=== PATIENT | female | born 1945 | race Caucasian/White ===

== ENCOUNTER 2016-10-21 15:39 | Inpatient (IN) | payer MEDICARE, BC ==
[2016-10-21 16:30] LABS: Glucose,Whole Blood 252 mg/dL (75-99)
[2016-10-21] MEDS ORDERED: SODIUM CHLORIDE 0.9% 1,000 ML IV STA (16:34)
--- NOTE | 2016-10-21 16:39 | ED ---
General Adult HPI - General Chief complaint: Altered Mental Status Stated complaint: head injury Time Seen by Provider: 10/21/16 16:26 Source: patient, family, RN notes reviewed, old records reviewed Mode of arrival: ambulatory Limitations: no limitations - History of Present Illness Initial comments: This is a 71-year-old female here for evaluation. This patient presents for evaluation of altered mental status. Patient's not able to give appropriate timelines of events, family states patient is usually sharp and nose are events and nose was going on. Vision any difficulty answering simple questions. Patient also did pass out today and became unresponsive during day care and that hit her head on the table. No other complaints. Patient is been out of psychiatric facilities for the last few weeks and with today to have outpatient psychiatric treatment - Related Data Home Medications Medication Instructions Recorded Confirmed Atorvastatin Calcium [Lipitor] 10 mg PO HS 10/21/16 10/21/16 Benzonatate [Tessalon Perles] 100 mg PO Q8H PRN 10/21/16 10/21/16 Budesonide [Pulmicort] 0.5 mg INHALATION RT-Q12H 10/21/16 10/21/16 Divalproex Sodium [Depakote] 1,500 mg PO Q12H 10/21/16 10/21/16 Ferrous Sulfate [Feosol] 325 mg PO TID 10/21/16 10/21/16 Haloperidol [Haldol] 2 mg PO Q4H PRN 10/21/16 10/21/16 LORazepam [Ativan] 2 mg PO TID PRN 10/21/16 10/21/16 Melatonin 3 mg PO HS 10/21/16 10/21/16 Pantoprazole [Protonix] 40 mg PO QAM 10/21/16 10/21/16 Phenytoin Oral Susp [Dilantin Oral 300 mg PO HS 10/21/16 10/21/16 Susp] Tolterodine [Detrol] 2 mg PO DAILY 10/21/16 10/21/16 amLODIPine [Norvasc] 5 mg PO DAILY 10/21/16 10/21/16 guaiFENesin SYRUP 100MG/5ML 100 mg PO Q6H PRN 10/21/16 10/21/16 [Robitussin] predniSONE 5 mg PO BID 10/21/16 10/21/16 risperiDONE [RisperDAL] 0.5 mg PO TID 10/21/16 10/21/16 Previous Rx's Medication Instructions Recorded Carvedilol [Coreg] 12.5 mg PO BID 30 Days 04/19/16 Allergies Allergy/AdvReac Type Severity Reaction Status Date / Time Sulfa (Sulfonamide Allergy Unknown Unknown Verified 10/21/16 16:49 Antibiotics) egg AdvReac Diarrhea Verified 10/21/16 16:49 Review of Systems ROS Statement: Those systems with pertinent positive or pertinent negative responses have been documented in the HPI. ROS Other: All systems not noted in ROS Statement are negative. Past Medical History Past Medical History: CVA/TIA, Diabetes Mellitus, GERD/Reflux, Hyperlipidemia, Hypertension, Seizure Disorder Additional Past Medical History / Comment(s): Intracranial bleed July 2015, overactive bladder History of Any Multi-Drug Resistant Organisms: None Reported Past Surgical History: Hysterectomy Additional Past Surgical History / Comment(s): Total hysterectomy, right hip arthroplasty, laser surgery of the right eye of her bleeding, bladder suspension , right elbow metal plate Past Anesthesia/Blood Transfusion Reactions: No Reported Reaction Past Psychological History: Anxiety, Bipolar, Depression Additional Psychological History / Comment(s): 03/19/2016-Just transferred from [facility] to mental health unit where patient is being treated for psychosis, bipolar depression, paranoid symptoms and hearing voices. Smoking Status: Former smoker Past Alcohol Use History: None Reported Additional Past Alcohol Use History / Comment(s): Patient was a smoker for a couple years and quit in 1981. She denies any medical marijuana, marijuana, street drug or alcohol use. She uses a cane for ambulation since the intracranial bleed in July 2015. Past Drug Use History: None Reported - Past Family History Father Family Medical History: No Reported History Additional Family Medical History / Comment(s): Father is alive in his 80s and is a smoker. Patient does not know his medical history. Mother Family Medical History: No Reported History Additional Family Medical History / Comment(s): Mother at age 79 from Alzheimer's dementia. Sister(s) Additional Family Medical History / Comment(s): She has one sister that is from heart failure. Patient does not have any brothers. Patient has 2 daughters that are 45 and 42 years of age with no major medical problems. General Exam - General Exam Comments Initial Comments: NIH of 2 Limitations: no limitations General appearance: alert, in no apparent distress Head exam: Present: atraumatic, normocephalic, normal inspection Eye exam: Present: normal appearance, PERRL, EOMI. Absent: scleral icterus, conjunctival injection, periorbital swelling ENT exam: Present: normal exam, mucous membranes moist Neck exam: Present: normal inspection. Absent: tenderness, meningismus, lymphadenopathy Respiratory exam: Present: normal lung sounds bilaterally. Absent: respiratory distress, wheezes, rales, rhonchi, stridor Cardiovascular Exam: Present: regular rate, normal rhythm, normal heart sounds. Absent: systolic murmur, diastolic murmur, rubs, gallop, clicks GI/Abdominal exam: Present: soft, normal bowel sounds. Absent: distended, tenderness, guarding, rebound, rigid Extremities exam: Present: normal inspection, full ROM, normal capillary refill. Absent: tenderness, pedal edema, joint swelling, calf tenderness Back exam: Present: normal inspection Neurological exam: Present: alert, oriented X3, CN II-XII intact Psychiatric exam: Present: normal affect, normal mood Skin exam: Present: warm, dry, intact, normal color. Absent: rash Course Vital Signs 10/21/16 10/21/16 10/21/16 15:44 18:01 18:17 Temperature 97.3 F L Pulse Rate 90 69 76 Respiratory 20 18 18 Rate Blood Pressure 122/73 118/61 122/60 O2 Sat by Pulse 99 99 98 Oximetry 10/21/16 10/21/16 18:29 19:05 Temperature Pulse Rate 73 75 Respiratory 15 14 Rate Blood Pressure 120/60 121/70 O2 Sat by Pulse 99 100 Oximetry - Reevaluation(s) Reevaluation #1: 10/21/16 19:16 Patient not at risk for acute stroke, no known onset of symptoms, symptoms episodic also going on for more than 24 hours Reevaluation #2: 10/21/16 19:16 Patient still remains a difficulty answering time my questions EKG Findings - EKG Comments: EKG Findings:: EKG shows normal sinus rhythm rate of 68, VT 160, QRS 74 , QTC 416 Medical Decision Making - Medical Decision Making 71 female here for evaluation of altered mental status, patient will be For neurological evaluation and treatment. - Lab Data Result diagrams: 10/21/16 17:55 10/21/16 17:55 Lab Results 10/21/16 10/21/16 10/21/16 Range/Units 16:30 17:55 17:55 WBC 5.5 (3.8-10.6) k/uL RBC 3.85 (3.80-5.40) m/uL Hgb 12.2 (11.4-16.0) gm/dL Hct 36.7 (34.0-46.0) % MCV 95.2 (80.0-100.0) fL MCH 31.8 (25.0-35.0) pg MCHC 33.4 (31.0-37.0) g/dL RDW 13.9 (11.5-15.5) % Plt Count 103 L (150-450) k/uL Neutrophils % 56 % Lymphocytes % 29 % Monocytes % 10 % Eosinophils % 2 % Basophils % 1 % Neutrophils # 3.1 (1.3-7.7) k/uL Lymphocytes # 1.6 (1.0-4.8) k/uL Monocytes # 0.6 (0-1.0) k/uL Eosinophils # 0.1 (0-0.7) k/uL Basophils # 0.0 (0-0.2) k/uL PT (9.0-12.0) sec INR (<1.1) APTT (22.0-30.0) sec Sodium (137-145) mmol/L Potassium (3.5-5.1) mmol/L Chloride (98-107) mmol/L Carbon Dioxide (22-30) mmol/L Anion Gap mmol/L BUN (7-17) mg/dL Creatinine (0.52-1.04) mg/dL Est GFR (MDRD) Af Amer (>60 ml/min/1.73 sqM) Est GFR (MDRD) Non-Af (>60 ml/min/1.73 sqM) Glucose (74-99) mg/dL POC Glucose (mg/dL) 252 H (75-99) mg/dL POC Glu Indigo V[employer] ID Dmitri, Rosina Calcium (8.4-10.2) mg/dL Phosphorus (2.5-4.5) mg/dL Magnesium (1.6-2.3) mg/dL Total Bilirubin (0.2-1.3) mg/dL AST (14-36) U/L ALT (9-52) U/L Alkaline Phosphatase (38-126) U/L Total Creatine Kinase 56 (30-135) U/L CK-MB (CK-2) 0.9 (0.0-2.4) ng/mL CK-MB (CK-2) Rel Index 1.6 Troponin I <0.012 (0.000-0.034) ng/mL Total Protein (6.3-8.2) g/dL Albumin (3.5-5.0) g/dL 10/21/16 10/21/16 Range/Units 17:55 17:55 WBC (3.8-10.6) k/uL RBC (3.80-5.40) m/uL Hgb (11.4-16.0) gm/dL Hct (34.0-46.0) % MCV (80.0-100.0) fL MCH (25.0-35.0) pg MCHC (31.0-37.0) g/dL RDW (11.5-15.5) % Plt Count (150-450) k/uL Neutrophils % % Lymphocytes % % Monocytes % % Eosinophils % % Basophils % % Neutrophils # (1.3-7.7) k/uL Lymphocytes # (1.0-4.8) k/uL Monocytes # (0-1.0) k/uL Eosinophils # (0-0.7) k/uL Basophils # (0-0.2) k/uL PT 11.2 (9.0-12.0) sec INR 1.1 (<1.1) APTT 21.8 L (22.0-30.0) sec Sodium 139 (137-145) mmol/L Potassium 3.7 (3.5-5.1) mmol/L Chloride 103 (98-107) mmol/L Carbon Dioxide 24 (22-30) mmol/L Anion Gap 12 mmol/L BUN 24 H (7-17) mg/dL Creatinine 0.51 L (0.52-1.04) mg/dL Est GFR (MDRD) Af Amer >60 (>60 ml/min/1.73 sqM) Est GFR (MDRD) Non-Af >60 (>60 ml/min/1.73 sqM) Glucose 211 H (74-99) mg/dL POC Glucose (mg/dL) (75-99) mg/dL POC Glu Indigo V[employer]ender [employer] ID Calcium 9.1 (8.4-10.2) mg/dL Phosphorus 3.0 (2.5-4.5) mg/dL Magnesium 1.7 (1.6-2.3) mg/dL Total Bilirubin 0.4 (0.2-1.3) mg/dL AST 24 (14-36) U/L ALT 28 (9-52) U/L Alkaline Phosphatase 190 H (38-126) U/L Total Creatine Kinase (30-135) U/L CK-MB (CK-2) (0.0-2.4) ng/mL CK-MB (CK-2) Rel Index Troponin I (0.000-0.034) ng/mL Total Protein 5.6 L (6.3-8.2) g/dL Albumin 3.0 L (3.5-5.0) g/dL - Radiology Data Radiology results: report reviewed (CT brain negative for acute disease), image reviewed Disposition Clinical Impression: Altered mental status, Confusion, Cerebrovascular accident Disposition: ADMITTED IP TO THIS [facility] Condition: Fair Instructions: Altered Mental Status (ED) Referrals: Mani Hunt DO [Primary Care Provider] - 1-2 days
[2016-10-21 18:22] LABS: Basophils % (A) 1 %; CH 32.6; CHCM 34.4; Eosinophils # (A) 0.1 k/uL (0-0.7); Eosinophils % (A) 2 %; HCT 36.7 % (34.0-46.0); HDW 2.57; HGB 12.2 gm/dL (11.4-16.0); Luc # (Auto) 0.11; Luc % (Auto) 2; Lymphocytes # (A) 1.6 k/uL (1.0-4.8); Lymphocytes % (A) 29 %; MCH 31.8 pg (25.0-35.0); MCHC 33.4 g/dL (31.0-37.0); MCV 95.2 fL (80.0-100.0); Mean Platelet Volume 7.6; Monocytes # (A) 0.6 k/uL (0-1.0); Monocytes % (A) 10 %; Neutrophils # (A) 3.1 k/uL (1.3-7.7); Neutrophils % (A) 56 %; RBC 3.85 m/uL (3.80-5.40); RDW 13.9 % (11.5-15.5); WBC 5.5 k/uL (3.8-10.6)
[2016-10-21 18:30] LABS: ALT 28 U/L (9-52); AST 24 U/L (14-36); Alkaline Phosphatase 190 U/L (38-126); Anion Gap 12 mmol/L; Blood Urea Nitrogen 24 mg/dL (7-17); Calcium 9.1 mg/dL (8.4-10.2); Carbon Dioxide 24 mmol/L (22-30); Chloride 103 mmol/L (98-107); Glucose 211 mg/dL (74-99); Magnesium 1.7 mg/dL (1.6-2.3); Non-African American GFR(MDRD) >60 (>60 ml/min/1.73 sqM); Potassium 3.7 mmol/L (3.5-5.1); Sodium 139 mmol/L (137-145); Total Bilirubin 0.4 mg/dL (0.2-1.3); Total Protein 5.6 g/dL (6.3-8.2)
[2016-10-21 18:34] LABS: Creatine Kinase 56 U/L (30-135)
[2016-10-21 18:46] LABS: Creatine Kinase MB 0.9 ng/mL (0.0-2.4); Troponin I <0.012 ng/mL (0.000-0.034)
[2016-10-21 18:55] LABS: INR 1.1 (<1.1); Prothrombin Time 11.2 sec (9.0-12.0)
[2016-10-21 19:06] LABS: Partial Thromboplastin Time 21.8 sec (22.0-30.0)
[2016-10-21] MEDS ORDERED: ASPIRIN 325 MG TAB PO STA (19:11)
--- NOTE | 2016-10-21 19:42 | CT ---
EXAMINATION TYPE: CT brain wo con DATE OF EXAM: 10/21/2016 7:26 PM COMPARISON: 07/03/2016 HISTORY: Weakness. CT DLP: 1171.00 mGycm Automated exposure control for dose reduction was used. FINDINGS: There is some cerebral cortical atrophy. There is no mass effect or midline shift.. There is a 1 cm a jacquelyn of high attenuation at the left parietal convexity involving left parietal cortex. There is sugge stion of some minimal surrounding hypodensity. There is no significant mass effect. The area of high attenuation and has density of 97 which could be blood or calcium. The lesion is also present on prev ious CT scans back to 07/26/2015. The calvarium is intact. Lesion appears slightly smaller than old e xams. There is hyperostosis frontalis. IMPRESSION: Small high density lesion in the left parietal lobe with minimal surrounding hypodensity and no signi ficant mass effect. This is consistent with an area of old hemorrhage and small infarct evident on pr evious CT scans. No acute intracranial abnormality seen.
[2016-10-21 21:03] LABS: Glucose,Whole Blood 183 mg/dL (75-99)
[2016-10-21] MEDS: SODIUM CHLORIDE 0.9% 1,000 ML IV SCH (22:27)
[2016-10-21] MEDS: FERROUS SULFATE 325 MG TAB PO SCH (22:55)
[2016-10-21] MEDS: CARVEDILOL 12.5 MG TAB PO SCH (22:55)
[2016-10-21] MEDS: ATORVASTATIN 10 MG TAB PO SCH (22:55)
[2016-10-21] MEDS: DIVALPROEX 500 MG TABLET.DR PO SCH (22:56)
[2016-10-21] MEDS: PHENYTOIN ORAL SUSP 100 MG/4 ML CUP PO SCH (22:57)
[2016-10-21] MEDS: INSULIN LISPRO (humaLOG) 300 UNIT/3 ML VIAL SQ SCH (23:00)
[2016-10-21 23:05] LABS: Hemoglobin A1C 5.6 % (4.2-6.1)
[2016-10-21 23:27] LABS: Appearance,Urine Cloudy (Clear); Bacteria,Urine Few /hpf; Bilirubin,Urine Negative (Negative); Glucose,Urine (UA) 2+ (Negative); Ketones,Urine Negative (Negative); Leukocyte Esterase,Urine Large (Negative); Mucus,Urine Rare /hpf; Nitrite,Urine Positive (Negative); PH, Urine 6.5 (5.0-8.0); Particle Count 21882; Protein,Urine Negative (Negative); Specific Gravity,Urine 1.007 (1.001-1.035); Squamous Epithelial Cell,Urine 3 /hpf (0-4); UA Billing (MACRO vs. MICRO) MICRO; Urobilinogen,Urine <2.0 mg/dL (<2.0); WBC,Urine >182 /hpf (0-5)
[2016-10-22 00:03] VITALS: BMI 28.3
[2016-10-22] MEDS: SODIUM CHLORIDE 0.9% 1,000 ML IV SCH ×2 (05:47→16:00)
[2016-10-22 05:55] LABS: Glucose,Whole Blood 90 mg/dL (75-99)
[2016-10-22] MEDS: INSULIN LISPRO (humaLOG) 300 UNIT/3 ML VIAL SQ SCH ×4 (05:58→21:40)
[2016-10-22] MEDS: CARVEDILOL 12.5 MG TAB PO SCH ×2 (06:24→17:33)
[2016-10-22] MEDS: PANTOPRAZOLE 40 MG TABLET PO SCH (08:12)
[2016-10-22] MEDS: FERROUS SULFATE 325 MG TAB PO SCH ×3 (08:12→21:41)
[2016-10-22] MEDS: amLODIPine 5 MG TAB PO SCH (08:12)
[2016-10-22 08:41] LABS: Chloride 107 mmol/L (98-107); Glucose 96 mg/dL (74-99)
[2016-10-22 08:42] LABS: Anion Gap 11 mmol/L; Blood Urea Nitrogen 20 mg/dL (7-17); Calcium 8.9 mg/dL (8.4-10.2); Carbon Dioxide 23 mmol/L (22-30); Magnesium 1.6 mg/dL (1.6-2.3); Non-African American GFR(MDRD) >60 (>60 ml/min/1.73 sqM); Potassium 3.9 mmol/L (3.5-5.1); Sodium 141 mmol/L (137-145)
[2016-10-22] MEDS: BUDESONIDE 0.5 MG/2 ML NEBU INHALATION SCH ×2 (09:29→18:53)
[2016-10-22] MEDS: ASPIRIN 325 MG TAB PO SCH (10:23)
[2016-10-22] MEDS: DIVALPROEX 500 MG TABLET.DR PO SCH ×2 (10:23→21:41)
[2016-10-22 11:38] LABS: Glucose,Whole Blood 219 mg/dL (75-99)
[2016-10-22] MEDS ORDERED: HALOPERIDOL 2 MG TAB PO PRN (12:21)
[2016-10-22] MEDS ORDERED: LORazepam 1 MG TAB PO PRN (12:21)
[2016-10-22] MEDS ORDERED: guaiFENesin SYRUP 100MG/5ML 200 MG/10 ML CUP PO PRN (12:21)
[2016-10-22] MEDS ORDERED: BENZONATATE 100 MG CAP PO PRN (12:21)
[2016-10-22] MEDS ORDERED: risperiDONE 0.5 MG TAB PO SCH (12:30)
[2016-10-22] MEDS: risperiDONE 1 MG TAB PO SCH ×2 (14:16→21:41)
[2016-10-22] MEDS ORDERED: HALOPERIDOL LACTATE 5 MG/ML 1 ML VIAL IM PRN (15:18)
[2016-10-22 17:27] LABS: Glucose,Whole Blood 97 mg/dL (75-99)
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
--- NOTE | 2016-10-22 19:59 | P.CNNES ---
History of Present Illness Consult date: 10/22/16 Reason for Consult: Patient admitted with acute mental status changes and confusion. History of Present Illness: This patient is a 71-year-old right-handed white female who was recently discharged from [facility] and [place] for evaluation of acute stroke. Patient had an extensive stay in the hospital and apparently was transferred to an outpatient geriatric psych unit. She has a history of bipolar disorder for which she is undergoing treatment. Patient was recently seen in September of this year for similar episode of confusion. She has had multiple admissions to multiple hospitals for workup of acute stroke. She underwent a computed tomography scan of the brain today which revealed no significant acute intracranial abnormality. There was a high density lesion noted in the left parietal lobe consistent with an area of old hemorrhage which is been noted on previous CAT scans of the brain. Patient apparently became very agitated today. She is required a sitter at bedside. She has had some episodes of hallucinations. A psychiatry consultation has been ordered. Patient apparently has had episodes of delusions and has conversations with imaginary friends. Given this patient's history more likely she is experiencing acute psychosis. We'll await further evaluation from psychiatry. Patient does have history of underlying seizure disorder. We will check a serum Dilantin level for her. We'll await further recommendations from psychiatry. Overall gnosis at this time remains very guarded. Review of Systems Constitutional: Denies chills, Denies fever Eyes: denies blurred vision, denies pain Ears, nose, mouth and throat: Denies headache, Denies sore throat Cardiovascular: Denies chest pain, Denies shortness of breath Respiratory: Denies cough Gastrointestinal: Denies abdominal pain, Denies diarrhea, Denies nausea, Denies vomiting Genitourinary: Denies dysuria, Denies hematuria Musculoskeletal: Denies myalgias Integumentary: Denies pruritus, Denies rash Neurological: Denies numbness, Denies weakness Psychiatric: Denies anxiety, Denies depression Endocrine: Denies fatigue, Denies weight change Past Medical History Past Medical History: Cancer, CVA/TIA, Diabetes Mellitus, GERD/Reflux, Hyperlipidemia, Hypertension, Seizure Disorder Additional Past Medical History / Comment(s): Intracranial bleed July 2015, overactive bladder, UTI, Breast cancer, RT mastectomy/lumpectomy. History of Any Multi-Drug Resistant Organisms: None Reported Past Surgical History: Hysterectomy Additional Past Surgical History / Comment(s): Total hysterectomy, right hip arthroplasty, laser surgery of the right eye of her bleeding, bladder suspension , right elbow metal plate Past Anesthesia/Blood Transfusion Reactions: No Reported Reaction Past Psychological History: Anxiety, Bipolar, Depression Additional Psychological History / Comment(s): 03/19/2016-Just transferred from [facility] to mental health unit where patient is being treated for psychosis, bipolar depression, paranoid symptoms and hearing voices. Smoking Status: Former smoker Past Alcohol Use History: None Reported Additional Past Alcohol Use History / Comment(s): Patient was a smoker for a couple years and quit in 1979. She denies any medical marijuana, marijuana, street drug or alcohol use. She uses a cane for ambulation since the intracranial bleed in July 2015. Past Drug Use History: None Reported - Past Family History Father Family Medical History: No Reported History Additional Family Medical History / Comment(s): Father is alive in his 80s and is a smoker. Patient does not know his medical history. Mother Family Medical History: No Reported History Additional Family Medical History / Comment(s): Mother at age 79 from Alzheimer's dementia. Sister(s) Additional Family Medical History / Comment(s): She has one sister that is from heart failure. Patient does not have any brothers. Patient has 2 daughters that are 45 and 42 years of age with no major medical problems. Medications and Allergies Home Medications Medication Instructions Recorded Confirmed Type Atorvastatin Calcium [Lipitor] 10 mg PO HS 10/21/16 10/21/16 History Benzonatate [Tessalon Perles] 100 mg PO Q8H PRN 10/21/16 10/21/16 History Budesonide [Pulmicort] 0.5 mg INHALATION RT-Q12H 10/21/16 10/21/16 History Divalproex Sodium [Depakote] 1,500 mg PO Q12H 10/21/16 10/21/16 History Ferrous Sulfate [Feosol] 325 mg PO TID 10/21/16 10/21/16 History Haloperidol [Haldol] 2 mg PO Q4H PRN 10/21/16 10/21/16 History LORazepam [Ativan] 2 mg PO TID PRN 10/21/16 10/21/16 History Melatonin 3 mg PO HS 10/21/16 10/21/16 History Pantoprazole [Protonix] 40 mg PO QAM 10/21/16 10/21/16 History Phenytoin Oral Susp [Dilantin Oral 300 mg PO HS 10/21/16 10/21/16 History Susp] Tolterodine [Detrol] 2 mg PO DAILY 10/21/16 10/21/16 History amLODIPine [Norvasc] 5 mg PO DAILY 10/21/16 10/21/16 History guaiFENesin SYRUP 100MG/5ML 100 mg PO Q6H PRN 10/21/16 10/21/16 History [Robitussin] predniSONE 5 mg PO BID 10/21/16 10/21/16 History risperiDONE [RisperDAL] 0.5 mg PO TID 10/21/16 10/21/16 History Allergies Allergy/AdvReac Type Severity Reaction Status Date / Time Sulfa (Sulfonamide Allergy Unknown Unknown Verified 10/21/16 16:49 Antibiotics) egg AdvReac Diarrhea Verified 10/21/16 16:49 Physical Examination - Vital Signs Vital Signs: Vital Signs Temp Pulse Pulse Resp BP Pulse Ox 10/22/16 19:00 74 10/22/16 18:54 70 10/22/16 16:00 70 18 140/65 100 10/22/16 12:00 70 18 150/70 100 10/22/16 09:37 72 10/22/16 09:30 72 10/22/16 08:00 97 F L 70 18 123/59 98 10/22/16 06:22 71 149/72 10/22/16 03:22 97 F L 61 18 103/49 97 10/22/16 00:00 98.6 F 62 18 126/58 98 10/21/16 20:30 97.3 F L 71 18 117/65 96 Intake and Output 10/22/16 10/22/16 10/22/16 06:59 14:59 22:59 Intake Total 2200 910 360 Output Total 500 Balance 1700 910 360 Intake: Intake, IV Titration 2200 550 Amount Sodium Chloride 0.9% 1, 1200 500 000 ml @ 100 mls/hr IV . Q10H [facility] Rx#:[id number] Sodium Chloride 0.9% 1, 1000 000 ml @ 999 mls/hr IV . Q1H1M [facility] Rx#:[id number] cefTRIAXone 1,000 mg In 50 Sodium Chloride 0.9% 50 ml @ 100 mls/hr IVPB Q24HR [facility] Rx#:[id number] Oral 360 360 Output: Urine 500 Other: Voiding Method Toilet Toilet Toilet # Voids 1 3 Weight 65.4 kg - Constitutional General appearance: average body habitus, cooperative - EENT EENT: PERRL, mucous membranes moist - Respiratory Respiratory: lungs clear, normal breath sounds - Cardiovascular Cardiovascular: regular rate, normal S1, normal S2 Extremities: no peripheral edema bilaterally - Gastrointestinal Gastrointestinal: normoactive bowel sounds - Integumentary Integumentary: normal - Neurologic Cranial nerve examination: PERRL, EOMI, VFF, V1/V2/V3 grossly intact, face symmetric, tongue midline, intact gag reflex, intact corneal reflex, normal palatal elevation Speech examination: intact Sensorimotor examination: intact Detailed motor examination: grossly full strength in all extremities Detailed sensory examination: intact Reflex and gait examination: intact Reflexes: 1+: ankle, bicep, knee, tricep - Musculoskeletal Musculoskeletal: no pain - Psychiatric Psychiatric: mood/affect appropriate, cooperative Results - Laboratory Findings CBC and BMP: 10/21/16 17:55 10/22/16 07:46 Abnormal Lab Findings: Abnormal Labs 10/21/16 10/21/16 10/22/16 21:02 23:05 07:46 BUN 20 H Creatinine 0.44 L POC Glucose (mg/dL) 183 H Urine Appearance Cloudy H Urine Glucose (UA) 2+ H Urine Blood Trace H Urine Nitrate Positive H Ur Leukocyte Esterase Large H Urine WBC >182 H Urine WBC Clumps Few H Urine Bacteria Few H Urine Mucus Rare H 10/22/16 11:33 BUN Creatinine POC Glucose (mg/dL) 219 H Urine Appearance Urine Glucose (UA) Urine Blood Urine Nitrate Ur Leukocyte Esterase Urine WBC Urine WBC Clumps Urine Bacteria Urine Mucus Assessment and Plan (1) Acute encephalopathy Status: Acute Code(s): G93.40 - ENCEPHALOPATHY, UNSPECIFIED (2) Bipolar disorder Status: Acute Code(s): F31.9 - BIPOLAR DISORDER, UNSPECIFIED (3) Psychosis Status: Acute Code(s): F29 - UNSP PSYCHOSIS NOT DUE TO A SUBSTANCE OR KNOWN PHYSIOL COND (4) Acute hyponatremia Status: Acute Code(s): E87.1 - HYPO-OSMOLALITY AND HYPONATREMIA (5) History of intracranial hemorrhage Status: Chronic Code(s): Z86.79 - PERSONAL HISTORY OF OTHER DISEASES OF THE CIRCULATORY SYSTEM Plan: This patient is a 71-year-old female recently discharged from [facility] after being evaluated for acute stroke. She was sent to a geriatric psychiatric unit for further treatment recently. Apparently she was showing signs of increased confusion and was brought into the emergency room yesterday. She has subsequently been admitted to the hospital. She is resting comfortably but apparently earlier today has been having acute agitation and psychosis. Psychiatry has been consult. Computed tomography scan of the brain failed to reveal any evidence of acute stroke. Patient is being considered for inpatient psychiatric treatment. We will continue close monitoring of the patient. We'll obtain a serum Dilantin level. Overall prognosis for this patient remains very guarded. Time with Patient: Greater than 30
[2016-10-22 20:58] LABS: Glucose,Whole Blood 143 mg/dL (75-99)
[2016-10-22] MEDS: ATORVASTATIN 10 MG TAB PO SCH (21:39)
[2016-10-22] MEDS: PHENYTOIN ORAL SUSP 100 MG/4 ML CUP PO SCH (21:40)
[2016-10-22] MEDS: MELATONIN 3 MG TABLET PO SCH (21:40)
[2016-10-23] MEDS: INSULIN LISPRO (humaLOG) 300 UNIT/3 ML VIAL SQ SCH ×4 (06:24→21:26)
[2016-10-23] MEDS: CARVEDILOL 12.5 MG TAB PO SCH ×2 (06:36→19:14)
[2016-10-23 06:39] LABS: Glucose,Whole Blood 95 mg/dL (75-99)
[2016-10-23] MEDS: BUDESONIDE 0.5 MG/2 ML NEBU INHALATION SCH ×2 (08:00→20:42)
[2016-10-23] MEDS: PANTOPRAZOLE 40 MG TABLET PO SCH (08:42)
[2016-10-23] MEDS: DIVALPROEX 500 MG TABLET.DR PO SCH (08:42)
[2016-10-23] MEDS: ASPIRIN 325 MG TAB PO SCH (08:42)
[2016-10-23] MEDS: FERROUS SULFATE 325 MG TAB PO SCH ×3 (08:42→20:44)
[2016-10-23] MEDS: risperiDONE 1 MG TAB PO SCH (08:44)
[2016-10-23] MEDS: amLODIPine 5 MG TAB PO SCH (08:44)
[2016-10-23] MEDS ORDERED: OXYBUTYNIN XL 5 MG TAB.ER.24 PO SCH (09:00)
[2016-10-23] MEDS ORDERED: LORazepam 2 MG/ML SYRINGE IM PRN (10:28)
[2016-10-23 11:56] LABS: Glucose,Whole Blood 114 mg/dL (75-99)
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
[2016-10-23] MEDS ORDERED: HALOPERIDOL 0.5 MG TAB PO SCH (16:00)
[2016-10-23 17:02] LABS: Glucose,Whole Blood 116 mg/dL (75-99)
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
--- NOTE | 2016-10-23 18:10 | CONS ---
DATE OF CONSULTATION: ADDENDUM TO PSYCHIATRIC CONSULTATION Please refer to my initial dictation for consultation. This collateral information was gathered from the patient's , Matthias, as I met him in the hospital. Also I called the patient's daughter Shawna Hernadez, phone number , and she told me that she has a power of title attorney paper regarding any medical decision for the patient. According to the information, patient had confusion and "absent seizures just after Thanksgiving as he was having dinner with her in a restaurant, and he took her to [facility] to rule out stroke versus seizure." Patient was at [facility] for 2 weeks. Patient's apparently has memory problems and he could not tell me exactly the result of the stay; however, he stated that she did not have any seizure activity during her hospitalization at [place], but she was referred to inpatient psychiatric facility in [place] due to confusion, delusions and visual hallucinations. Patient was in inpatient psychiatric facility in [place] for 4 weeks. They did adjust her medication and she was released with the post-discharge plan to start [facility] day [facility] program. Patient was stable and she went for just half a day to the day program at [facility]. Her was called from [facility], as the patient was getting very confused and disoriented. He brought her to the hospital to rule out stroke or seizure activity. Her stated that the patient gets very delusional and more confused when she has urinary tract infection. He stated that patient has been having recurrent urinary tract infections every couple of weeks. Patient's daughter stated that her mother's baseline since July 2015 is "confused, not able to remember dates, but usually not combative." We called the pharmacy to know her medication from the psychiatric hospitalization in [place]. They are as follows: 1. Depakote extended-release 500 mg. She would take 3 tablets every 12 hours. 2. Risperdal 0.5 mg 3 times a day. 3. Dilantin liquid 125 every 12 hours. 4. Ferrous sulfate. 5. Coreg 12.5 twice a day. 6. Atorvastatin 10 mg at bedtime. 7. Amlodipine 5 mg daily. 8. Haloperidol 2 mg 1 tablet every 4 hours p.r.n. for agitation. 9. Breathing treatment. 10. Tolterodine extended-release 2 mg daily. I did ask her if he gave her any p.r.n. Haldol doses since she was discharged from the psych facility, and he replied saying, "I don't think so." MY RECOMMENDATIONS: 1. Avoid any p.r.n. Ativan or lorazepam; it will make her more confused and more disinhibited. 2. Treat the urinary tract infection. 3. Address the history of seizure disorder, as she is taking 2 anti-seizure medications and both are subtherapeutic or not in therapeutic range. 4. Discontinue Risperdal, as it does lower the seizure threshold, and continue the patient just on Haldol as a scheduled order. 5. I will continue to see the patient as long as she is on the medical floor; however, patient does not need inpatient psych hospitalization. Either we will refer her back to [facility] problem or to outpatient behavior medicine here at [facility], as she has been seen on a regular basis, and her last session was just before , as she was hospitalized all this period of time. Prognosis guarded.
[2016-10-23] MEDS: CEPHALEXIN 500 MG CAP PO SCH ×2 (19:13→20:44)
[2016-10-23] MEDS: HALOPERIDOL 1 MG TAB PO SCH ×2 (19:14→23:32)
--- NOTE | 2016-10-23 19:47 | P.PN ---
Subjective This patient is a 71-year-old right-handed white female who was admitted to hospital for evaluation of altered mental status and hallucinations. Patient has a extensive past medical history with history of stroke and psychosis in the past. She was recently admitted to [facility] in [place] for strokelike symptoms. After several months she was transferred to [facility] in [place] for treatment of bipolar disorder and organic mood disorder. She is also been treated for underlying seizure disorder and has been taking Dilantin. Her Dilantin level came back subtherapeutic at 3.6. This will be corrected with oral or IV Dilantin bolus. Patient is continuing to have auditory and visual hallucinations. She was seen by psychiatry today who diagnosed her with acute delirium and encephalopathy secondary to her recent urinary tract infection. Psychiatry has discontinued her Risperdal. She will be continued only on Haldol for further management. She has a history of bipolar disorder as well. We will await further recommendations from psychiatry. Neurologically she remains relatively stable. There is no evidence of any new stroke. Her overall prognosis at this time remains very guarded. Psychiatry does not feel she requires inpatient psychiatric hospitalization at this time as she does not meet criteria. Patient has been taken off of Dilantin and Depakote. She has been transitioned to [facility] for further management of her bipolar disorder and seizure disorder. We will continue to monitor her condition closely. Her overall prognosis remains very guarded. Objective - Vital Signs Vital signs: Vital Signs Temp 97 F L 10/22/16 08:00 Pulse 71 10/23/16 08:00 Resp 18 10/23/16 07:00 BP 94/65 10/23/16 07:00 Pulse Ox 95 10/23/16 07:00 Intake & Output 10/22/16 10/23/16 10/23/16 18:59 06:59 18:59 Intake Total 1270 480 Output Total 400 800 Balance 1270 -400 -320 Intake: Intake, IV Titration 550 Amount Sodium Chloride 0.9% 1, 500 000 ml @ 100 mls/hr IV . Q10H [facility] Rx#:[id number] cefTRIAXone 1,000 mg In 50 Sodium Chloride 0.9% 50 ml @ 100 mls/hr IVPB Q24HR [facility] Rx#:[id number] Oral 720 480 Output: Urine 400 800 Other: Voiding Method Toilet Toilet Toilet # Voids 3 1 2 - Exam Physical examination: PHYSICAL EXAMINATION: Patient is resting comfortably in bed. VITAL SIGNS: Blood pressure is [95/65]. Heart rate is [71]. Respiration is [18] . Temperature is [97.0]. HEENT: Head is atraumatic, neck is supple, there were no carotid bruits. CHEST: Lungs are clear to auscultation and percussion. CARDIAC: S1, S2 normal rate and rhythm. There is no murmur. ABDOMEN: Soft and nontender. Bowel sounds are present. EXTREMITIES: There is no pedal edema. Peripheral pulses are present. Neurological examination: Patient has a nonfocal neurological examination today. She follows simple commands. Her memory and intellectual functions are impaired. Patient does seem to be pleasant at this time. She is not agitated or delirious at this time. Daughter is at bedside and does seem to interact well - Labs CBC & Chem 7: 10/21/16 17:55 10/22/16 07:46 Labs: Abnormal Lab Results - Last 24 Hours (Table) 10/22/16 10/23/16 10/23/16 Range/Units 20:40 11:43 16:44 POC Glucose (mg/dL) 143 H 114 H 116 H (75-99) mg/dL Microbiology - Last 24 Hours (Table) 10/21/16 23:05 Urine Culture - Preliminary Urine,Clean Catch Gram Neg Bacilli Aerococcus urinae Assessment and Plan (1) Acute encephalopathy Status: Acute Code(s): G93.40 - ENCEPHALOPATHY, UNSPECIFIED (2) Bipolar disorder Status: Acute Code(s): F31.9 - BIPOLAR DISORDER, UNSPECIFIED (3) Psychosis Status: Acute Code(s): F29 - UNSP PSYCHOSIS NOT DUE TO A SUBSTANCE OR KNOWN PHYSIOL COND (4) Acute hyponatremia Status: Acute Code(s): E87.1 - HYPO-OSMOLALITY AND HYPONATREMIA (5) History of intracranial hemorrhage Status: Chronic Code(s): Z86.79 - PERSONAL HISTORY OF OTHER DISEASES OF THE CIRCULATORY SYSTEM Plan: This patient is a 71-year-old female recently discharged from [facility] after being evaluated for acute stroke. She was sent to a geriatric psychiatric unit for further treatment recently. Apparently she was showing signs of increased confusion and was brought into the emergency room yesterday. She has subsequently been admitted to the hospital. She is resting comfortably but apparently earlier today has been having acute agitation and psychosis. Psychiatry has been consult. Computed tomography scan of the brain failed to reveal any evidence of acute stroke. Patient is being considered for inpatient psychiatric treatment. Patient was seen by psychiatry today. They do not feel she requires inpatient psychiatric admission and she does not meet criteria. She has been discontinued off of several medications including Depakote and Dilantin. She has been started on Keppra for treatment of her bipolar disorder. She has been taken off of Risperdal as per recommendation of psychiatry. She will need close monitoring and supervision during this transition. Her overall condition shows no significant change. Overall prognosis for this patient remains very guarded.
[2016-10-23] MEDS: MELATONIN 3 MG TABLET PO SCH (20:44)
[2016-10-23] MEDS: ATORVASTATIN 10 MG TAB PO SCH (20:44)
[2016-10-23] MEDS: levETIRAcetam 500 MG TAB PO SCH (20:44)
[2016-10-23 21:11] LABS: Glucose,Whole Blood 160 mg/dL (75-99)
[2016-10-23 23:32] VITALS: RESP 16
[2016-10-24 06:17] LABS: Glucose,Whole Blood 123 mg/dL (75-99)
[2016-10-24] MEDS: INSULIN LISPRO (humaLOG) 300 UNIT/3 ML VIAL SQ SCH ×2 (06:31→12:19)
[2016-10-24] MEDS: CARVEDILOL 12.5 MG TAB PO SCH (06:33)
[2016-10-24] MEDS: BUDESONIDE 0.5 MG/2 ML NEBU INHALATION SCH (08:12)
[2016-10-24 08:21] VITALS: BP 116/68; PULSE 76; TEMP 97
[2016-10-24] MEDS: amLODIPine 5 MG TAB PO SCH (08:55)
[2016-10-24] MEDS: ASPIRIN 325 MG TAB PO SCH (08:55)
[2016-10-24] MEDS: PANTOPRAZOLE 40 MG TABLET PO SCH (08:56)
[2016-10-24] MEDS: CEPHALEXIN 500 MG CAP PO SCH (08:56)
[2016-10-24] MEDS: levETIRAcetam 500 MG TAB PO SCH (08:56)
[2016-10-24] MEDS: FERROUS SULFATE 325 MG TAB PO SCH (08:56)
[2016-10-24] MEDS: HALOPERIDOL 1 MG TAB PO SCH (08:56)
[2016-10-24] MEDS ORDERED: LORazepam 0.5 MG TAB PO PRN (09:32)
[2016-10-24 12:11] LABS: Glucose,Whole Blood 98 mg/dL (75-99)
--- NOTE | 2016-10-24 14:33 | P.PN ---
Progress Note - Text SUBJECTIVE: Patient was able to remember me ,was sitting on her recliner asking me "When can I go home",patient is less confused ,reports sleeping through night ,denies any hopeless or helpless feeling ,she endorses having visual and auditory hallucinations since as she said"Since I had my brain surgery",she denies any command voices "It is the voice of my daughter and my grandchildren calling me or trying to comfort me" MENTAL STATUS EXAM: Patient is less confused ,cooperative ,able to tell me her ,oriented to person ,place"It is hospital but I cant recall new name" ,able to tell Swathi is next week "but could not recall today date ,did recall 0/3 objects after couple of minutes ,scored 11/30 in [facility] ,denies any suicidal or homicidal ideation ,denies any manic symptom,endorses chronic hallucinations since TBI ASSESSMENT: Delirium reaction ,resolved Moderate cognitive disorder with delusion ,partial remission,Due to TBI HX of Bipolar disorder ,Mixed PLAN: Continue Haldol 1 mg TID ,refer back to Day Program at [facility] ,no imminent risk for self harm or others
--- NOTE | 2016-10-24 16:04 | P.PN ---
Subjective This patient is a 71-year-old right-handed white female who was admitted to hospital for evaluation of altered mental status and hallucinations. Patient has a extensive past medical history with history of stroke and psychosis in the past. She was recently admitted to [facility] in [place] for strokelike symptoms. After several months she was transferred to [facility] psych unit in [place] for treatment of bipolar disorder and organic mood disorder. She is also been treated for underlying seizure disorder and has been taking Dilantin. Her Dilantin level came back subtherapeutic at 3.6. This will be corrected with oral or IV Dilantin bolus. Patient is continuing to have auditory and visual hallucinations. She was seen by psychiatry today who diagnosed her with acute delirium and encephalopathy secondary to her recent urinary tract infection. Psychiatry has discontinued her Risperdal. She will be continued only on Haldol for further management. She has a history of bipolar disorder as well. We will await further recommendations from psychiatry. Neurologically she remains relatively stable. There is no evidence of any new stroke. Her overall prognosis at this time remains very guarded. Psychiatry does not feel she requires inpatient psychiatric hospitalization at this time as she does not meet criteria. Patient has been taken off of Dilantin and Depakote. She has been transitioned to [facility] for further management of her bipolar disorder and seizure disorder. Patient seems to be more relaxed and less agitated today. She was seen by psychiatry who feel that her delirium reaction has resolved. She is to continue on Haldol 1 mg 3 times a day. She is being referred back to the day program at [facility]. Patient is being considered for possible discharge home later today. She may follow-up in the outpatient neurology clinic in 3-4 weeks. We will continue to monitor her condition closely. Her overall prognosis remains very guarded. Objective - Vital Signs Vital signs: Vital Signs Temp 97.0 F L 10/24/16 08:00 Pulse 72 10/24/16 08:17 Resp 16 10/24/16 08:00 BP 116/68 10/24/16 08:00 Pulse Ox 97 10/24/16 08:00 Intake & Output 10/23/16 10/24/16 10/24/16 18:59 06:59 18:59 Intake Total 720 0 240 Output Total 800 225 Balance -80 -225 240 Intake: Intake, IV Titration 0 Amount cefTRIAXone 1,000 mg In 0 Sodium Chloride 0.9% 50 ml @ 100 mls/hr IVPB Q24HR [facility] Rx#:[id number] Oral 720 240 Output: Urine 800 225 Other: Voiding Method Toilet Toilet Toilet # Voids 2 1 - Exam Physical examination: PHYSICAL EXAMINATION: Patient is resting comfortably in bed. VITAL SIGNS: Blood pressure is [116/68]. Heart rate is [76]. Respiration is [16] . Temperature is [97.0]. HEENT: Head is atraumatic, neck is supple, there were no carotid bruits. CHEST: Lungs are clear to auscultation and percussion. CARDIAC: S1, S2 normal rate and rhythm. There is no murmur. ABDOMEN: Soft and nontender. Bowel sounds are present. EXTREMITIES: There is no pedal edema. Peripheral pulses are present. Neurological examination: Patient has a nonfocal neurological examination today. She follows simple commands. Her memory and intellectual functions are impaired. Patient does seem to be pleasant at this time. She is not agitated or delirious at this time. Daughter is at bedside and does seem to interact well - Labs CBC & Chem 7: 10/21/16 17:55 10/22/16 07:46 Labs: Abnormal Lab Results - Last 24 Hours (Table) 10/23/16 10/23/16 10/24/16 Range/Units 16:44 21:09 06:15 POC Glucose (mg/dL) 116 H 160 H 123 H (75-99) mg/dL Microbiology - Last 24 Hours (Table) 10/21/16 23:05 Urine Culture - Final Urine,Clean Catch Escherichia coli Aerococcus urinae Assessment and Plan (1) Acute encephalopathy Status: Acute Code(s): G93.40 - ENCEPHALOPATHY, UNSPECIFIED (2) Bipolar disorder Status: Acute Code(s): F31.9 - BIPOLAR DISORDER, UNSPECIFIED (3) Psychosis Status: Acute Code(s): F29 - UNSP PSYCHOSIS NOT DUE TO A SUBSTANCE OR KNOWN PHYSIOL COND (4) Acute hyponatremia Status: Acute Code(s): E87.1 - HYPO-OSMOLALITY AND HYPONATREMIA (5) History of intracranial hemorrhage Status: Chronic Code(s): Z86.79 - PERSONAL HISTORY OF OTHER DISEASES OF THE CIRCULATORY SYSTEM Plan: This patient is a 71-year-old female recently discharged from [facility] after being evaluated for acute stroke. She was sent to a geriatric psychiatric unit for further treatment recently. Apparently she was showing signs of increased confusion and was brought into the emergency room yesterday. She has subsequently been admitted to the hospital. She is resting comfortably but apparently earlier today has been having acute agitation and psychosis. Psychiatry has been consult. Computed tomography scan of the brain failed to reveal any evidence of acute stroke. Patient is being considered for inpatient psychiatric treatment. Patient was seen by psychiatry today. They do not feel she requires inpatient psychiatric admission and she does not meet criteria. She has been discontinued off of several medications including Depakote and Dilantin. She has been started on Keppra for treatment of her bipolar disorder. She has been taken off of Risperdal as per recommendation of psychiatry. She will need close monitoring and supervision during this transition. Patient was reevaluated by psychiatry today. She is to continue on her current dose of Haldol 1 mg 3 times a day. She is being referred back to her day program at [facility]. She is possible for discharge later today. Patient may follow-up in the outpatient neurology clinic in 3-4 weeks as needed. Her overall condition shows no significant change. Her delirium has completely resolved. She is to continue treatment for underlying bipolar disorder as recommended by psychiatry. She should follow-up with her psychiatrist as outpatient as well. Overall prognosis for this patient remains very guarded.
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
== END 2016-10-24 14:58 | disposition home health service (06) | DRG 896 ==
LOC: EC 15:39 → 6SEL 19:11 → 5MS5E 10-24 11:14
PROVIDERS: ADMIT Hospitalist; ATTEND Hospitalist
DX: F19.921 Other psychoactive substance use, unspecified with intoxication with delirium (principal); G93.40 Encephalopathy, unspecified; S09.90XA Unspecified injury of head, initial encounter; E87.1 Hypo-osmolality and hyponatremia; J44.9 Chronic obstructive pulmonary disease, unspecified; N39.0 Urinary tract infection, site not specified; F31.60 Bipolar disorder, current episode mixed, unspecified; F22 Delusional disorders; F09 Unspecified mental disorder due to known physiological condition; I10 Essential (primary) hypertension; G40.909 Epilepsy, unspecified, not intractable, without status epilepticus; E11.9 Type 2 diabetes mellitus without complications; E78.5 Hyperlipidemia, unspecified; K21.9 Gastro-esophageal reflux disease without esophagitis; F41.9 Anxiety disorder, unspecified; N32.81 Overactive bladder; Z85.3 Personal history of malignant neoplasm of breast; Z86.73 Personal history of transient ischemic attack (TIA), and cerebral infarction without residual deficits; Z86.79 Personal history of other diseases of the circulatory system; Z87.440 Personal history of urinary (tract) infections; Z87.891 Personal history of nicotine dependence; Z88.2 Allergy status to sulfonamides; Z90.710 Acquired absence of both cervix and uterus; Z90.10 Acquired absence of unspecified breast and nipple; Z96.641 Presence of right artificial hip joint; Z79.51 Long term (current) use of inhaled steroids; Z79.52 Long term (current) use of systemic steroids; Z79.899 Other long term (current) drug therapy
CPT/HCPCS: 36415; 70450; 80048; 80053; 80164; 80185; 81001; 82550; 82553; 83036; 83735; 84100; 84484; 85025; 85610; 85730; 87077; 87086; 87186; 93005; 94640

== ENCOUNTER → 2016-11-26 | Outpatient (CLI) | payer MEDICARE, BC ==
--- NOTE | 2016-11-26 20:22 | US ---
EXAMINATION TYPE: US bladder DATE OF EXAM: 11/26/2016 3:30 PM COMPARISON: NONE CLINICAL HISTORY: R35.0 Frequency of Micturition. Frequent urgency EXAM MEASUREMENTS: Post Void Residual Volume: 335 mL Color Doppler performed to assess ureteral jets. Bilateral Jets seen: no, patient could not hold bladder long enough to attempt Normal Post Void Residual (less than 50ml): no asked patient if she still felt the need to urinate after she voided and she said no IMPRESSION: 1. No abnormality identified.
== END | disposition home or self-care (01) ==
LOC: RADUSWWP 14:32
PROVIDERS: ATTEND Family Medicine
DX: Z01.818 Encounter for other preprocedural examination (principal); R35.0 Frequency of micturition
CPT/HCPCS: 76857

== ENCOUNTER 2016-12-22 14:34 | Emergency (ER) | payer MEDICARE, BC ==
[2016-12-22 14:39] VITALS: RESP 20
[2016-12-22] MEDS ORDERED: SODIUM CHLORIDE 0.9% 1,000 ML IV ONE (14:52)
--- NOTE | 2016-12-22 14:55 | ED ---
General Adult HPI - General Chief complaint: Weakness Stated complaint: Numbness feet legs Time Seen by Provider: 12/22/16 14:40 Source: patient Mode of arrival: wheelchair Limitations: no limitations - History of Present Illness Initial comments: Is a 71-year-old female history of type 2 diabetes on metformin who presents emergency department for elevated blood sugars and glucosuria. She was eating a milkshake this morning and noticed that her blood sugar went up to 220. She went to a clinic who checked her urine and told her that she had glucose in her urine and sent her here for further evaluation. The patient states that she has been feeling some numbness and tingling in her legs and also having some bladder incontinence. She denies any lower back pain or falls recently. She denies any saddle anesthesia. No other complaints. - Related Data Home Medications Medication Instructions Recorded Confirmed Atorvastatin Calcium [Lipitor] 10 mg PO HS 10/21/16 12/22/16 amLODIPine [Norvasc] 5 mg PO DAILY 10/21/16 12/22/16 Anastrozole [Arimidex] 1 mg PO DAILY 12/22/16 12/22/16 Tolterodine Tartrate [Detrol LA] 4 mg PO HS 12/22/16 12/22/16 metFORMIN HCL [Glucophage] 500 mg PO BID 12/22/16 12/22/16 risperiDONE 1.5 mg PO HS 12/22/16 12/22/16 Previous Rx's Medication Instructions Recorded Carvedilol [Coreg] 12.5 mg PO BID 30 Days 04/19/16 Melatonin 3 mg PO HS tablet 10/24/16 Allergies Allergy/AdvReac Type Severity Reaction Status Date / Time Sulfa (Sulfonamide Allergy Unknown Unknown Verified 12/22/16 15:39 Antibiotics) egg AdvReac Diarrhea Verified 12/22/16 15:39 Review of Systems ROS Statement: Those systems with pertinent positive or pertinent negative responses have been documented in the HPI. ROS Other: All systems not noted in ROS Statement are negative. Past Medical History Past Medical History: Cancer, CVA/TIA, Diabetes Mellitus, GERD/Reflux, Hyperlipidemia, Hypertension, Seizure Disorder Additional Past Medical History / Comment(s): Intracranial bleed July 2015, overactive bladder, UTI, Breast cancer, RT mastectomy/lumpectomy. History of Any Multi-Drug Resistant Organisms: None Reported Past Surgical History: Hysterectomy Additional Past Surgical History / Comment(s): Total hysterectomy, right hip arthroplasty, laser surgery of the right eye of her bleeding, bladder suspension , right elbow metal plate Past Anesthesia/Blood Transfusion Reactions: No Reported Reaction Past Psychological History: Anxiety, Bipolar, Depression Additional Psychological History / Comment(s): 03/19/2016-Just transferred from [facility] to mental health unit where patient is being treated for psychosis, bipolar depression, paranoid symptoms and hearing voices. Smoking Status: Former smoker Past Alcohol Use History: None Reported Additional Past Alcohol Use History / Comment(s): Patient was a smoker for a couple years and quit in 1979. She denies any medical marijuana, marijuana, street drug or alcohol use. She uses a cane for ambulation since the intracranial bleed in July 2015. Past Drug Use History: None Reported - Past Family History Father Family Medical History: No Reported History Additional Family Medical History / Comment(s): Father is alive in his 80s and is a smoker. Patient does not know his medical history. Mother Family Medical History: No Reported History Additional Family Medical History / Comment(s): Mother at age 79 from Alzheimer's dementia. Sister(s) Additional Family Medical History / Comment(s): She has one sister that is from heart failure. Patient does not have any brothers. Patient has 2 daughters that are 45 and 42 years of age with no major medical problems. General Exam - General Exam Comments Initial Comments: Constitutional: Awake alert Appears comfortable Head: Normocephalic atraumatic Eyes: no conjunctival injection No scleral icterus EOMI Neck: No JVD Supple Heart: Regular rate rhythm normal S1-S2 no murmurs Lungs: Clear to auscultation bilaterally No wheezing No rales Abdomen: Soft nondistended nontender Extremities: Non edematous DP pulses intact Radial pulses intact, 2 out of 4 patellar reflexes bilateral, 5 out of 5 strength with plantar and dorsiflexion bilaterally, sensation intact to light touch in bilateral lower extremities. Neuro: A&Ox3 No focal neurologic deficits Psych: Appropriate mood and affect Limitations: no limitations Course Vital Signs 12/22/16 12/22/16 14:37 15:38 Temperature 98.4 F 98.2 F Pulse Rate 79 75 Respiratory 20 20 Rate Blood Pressure 136/75 134/75 O2 Sat by Pulse 100 98 Oximetry EKG Findings - EKG Comments: EKG Findings:: EKG showing normal sinus rhythm with rate of 74. No ST segment changes or T-wave inversions. QTC is 428. Other intervals are normal. No ectopy. Medical Decision Making - Medical Decision Making This is a 71-year-old female presents emergency department for glucose in her urine and tingling in her feet. The patient states that symptoms have been going on for a few months and gradually worsening. I spoke to her further she denied actual urinary incontinence and states that she since been having polyuria. Blood sugar here was 150. I counseled the patient on proper way to monitor her blood sugars at home and on proper diet. Told her that she is to keep a log of her blood sugars and to follow-up with her primary doctor for adjustments of her diabetic medication. She was provided with information on proper diet for diabetes. I told her that she go home and follow-up the primary care doctor. She is neurologically intact in bilateral lower extremities. - Lab Data Result diagrams: 12/22/16 15:25 12/22/16 15:25 Lab Results 12/22/16 12/22/16 Range/Units 15:25 15:25 WBC 6.5 (3.8-10.6) k/uL RBC 3.94 (3.80-5.40) m/uL Hgb 12.6 (11.4-16.0) gm/dL Hct 36.1 (34.0-46.0) % MCV 91.7 (80.0-100.0) fL MCH 31.9 (25.0-35.0) pg MCHC 34.8 (31.0-37.0) g/dL RDW 12.1 (11.5-15.5) % Plt Count 230 D (150-450) k/uL Neutrophils % 65 % Lymphocytes % 23 % Monocytes % 7 % Eosinophils % 1 % Basophils % 1 % Neutrophils # 4.2 (1.3-7.7) k/uL Lymphocytes # 1.5 (1.0-4.8) k/uL Monocytes # 0.5 (0-1.0) k/uL Eosinophils # 0.1 (0-0.7) k/uL Basophils # 0.0 (0-0.2) k/uL Sodium 137 (137-145) mmol/L Potassium 3.8 (3.5-5.1) mmol/L Chloride 104 (98-107) mmol/L Carbon Dioxide 22 (22-30) mmol/L Anion Gap 11 mmol/L BUN 14 (7-17) mg/dL Creatinine 0.54 (0.52-1.04) mg/dL Est GFR (MDRD) Af Amer >60 (>60 ml/min/1.73 sqM) Est GFR (MDRD) Non-Af >60 (>60 ml/min/1.73 sqM) Glucose 157 H (74-99) mg/dL Calcium 9.7 (8.4-10.2) mg/dL Total Bilirubin 0.5 (0.2-1.3) mg/dL AST 17 (14-36) U/L ALT 22 (9-52) U/L Alkaline Phosphatase 160 H (38-126) U/L Total Protein 6.4 (6.3-8.2) g/dL Albumin 3.7 (3.5-5.0) g/dL Acetone, Qual Negative (Negative) Disposition Clinical Impression: Hyperglycemia Disposition: HOME SELF-CARE Condition: Stable Instructions: Foot Care for People with Diabetes (ED), Type 2 Diabetes in Adults (ED), Diabetic Peripheral Neuropathy (ED) Referrals: Mani Hunt DO [Primary Care Provider] - 1-2 days
--- NOTE | 2016-12-22 15:27 | XR ---
EXAMINATION TYPE: XR lumbar spine 2 or 3V DATE OF EXAM: 12/22/2016 3:22 PM COMPARISON: NONE HISTORY: Pain and numbness in limbs TECHNIQUE: 3 view lumbar spine FINDINGS: There 5 lumbar-type vertebral bodies. The pedicles at L1 are poorly visualized which may be positiona l. Patient is somewhat rotated. Large degree of spondylosis present at the L1-L2 level. Degenerative changes are present T12-L1, L1-2. Degenerative disc changes are present L5-S1. IMPRESSION: 1. Degenerative disc changes through the lumbar spine. 2. Mild rotoscoliosis.
[2016-12-22 15:58] LABS: Basophils % (A) 1 %; CH 31.7; CHCM 34.7; Eosinophils # (A) 0.1 k/uL (0-0.7); Eosinophils % (A) 1 %; HCT 36.1 % (34.0-46.0); HDW 2.98; HGB 12.6 gm/dL (11.4-16.0); Luc # (Auto) 0.17; Luc % (Auto) 3; Lymphocytes # (A) 1.5 k/uL (1.0-4.8); Lymphocytes % (A) 23 %; MCH 31.9 pg (25.0-35.0); MCHC 34.8 g/dL (31.0-37.0); MCV 91.7 fL (80.0-100.0); Mean Platelet Volume 6.9; Monocytes # (A) 0.5 k/uL (0-1.0); Monocytes % (A) 7 %; Neutrophils # (A) 4.2 k/uL (1.3-7.7); Neutrophils % (A) 65 %; RBC 3.94 m/uL (3.80-5.40); RDW 12.1 % (11.5-15.5); WBC 6.5 k/uL (3.8-10.6); WBC (Perox) 6.55
[2016-12-22 16:08] LABS: ALT 22 U/L (9-52); AST 17 U/L (14-36); Alkaline Phosphatase 160 U/L (38-126); Anion Gap 11 mmol/L; Blood Urea Nitrogen 14 mg/dL (7-17); Calcium 9.7 mg/dL (8.4-10.2); Carbon Dioxide 22 mmol/L (22-30); Chloride 104 mmol/L (98-107); Glucose 157 mg/dL (74-99); Non-African American GFR(MDRD) >60 (>60 ml/min/1.73 sqM); Potassium 3.8 mmol/L (3.5-5.1); Sodium 137 mmol/L (137-145); Total Bilirubin 0.5 mg/dL (0.2-1.3); Total Protein 6.4 g/dL (6.3-8.2)
[2016-12-22 16:44] VITALS: BP 130/66; PULSE 80; TEMP 98
== END 2016-12-22 16:44 | disposition home or self-care (01) ==
LOC: EC 14:34
DX: E11.65 Type 2 diabetes mellitus with hyperglycemia (principal); E78.5 Hyperlipidemia, unspecified; I10 Essential (primary) hypertension; F31.9 Bipolar disorder, unspecified; Z85.3 Personal history of malignant neoplasm of breast; Z87.891 Personal history of nicotine dependence; Z88.2 Allergy status to sulfonamides; Z91.012 Allergy to eggs; Z79.84 Long term (current) use of oral hypoglycemic drugs; Z79.899 Other long term (current) drug therapy
CPT/HCPCS: 36415; 72100; 80053; 82009; 85025; 93005; 96360; 99285

== ENCOUNTER → 2017-01-17 | Outpatient (CLI) | payer MEDICARE, BC, OTHER ==
--- NOTE | 2017-01-17 11:03 | US ---
EXAMINATION TYPE: US kidneys/renal and bladder DATE OF EXAM: 01/17/2017 10:26 AM COMPARISON: Previous study dated 11/26/2016. CLINICAL HISTORY: R31.2 Microscopic Hematuria. Bladder suspension x 3-4 years ago EXAM MEASUREMENTS: Right Kidney: 11.3 x 4.8 x 4.9 cm Left Kidney: 11.4 x 4.8 x 4.9 cm Right Kidney: Hydronephrosis vs dilated renal pelvis = 3.9 x 2.9 x 1.5 cm Left Kidney: wnl Bladder: distended, wnl as visualized Bilateral Jets seen There is an extrarenal pelvis on the right. The left kidney is normal. The bladder is unremarkable. B oth ureteral jets were visualized. IMPRESSION: NORMAL RENAL ULTRASOUND.
== END | disposition home or self-care (01) ==
LOC: RADUSWWP 09:38
PROVIDERS: ATTEND Urology
DX: R31.29 Other microscopic hematuria (principal); Z88.2 Allergy status to sulfonamides; Z91.012 Allergy to eggs
CPT/HCPCS: 76770

== ENCOUNTER → 2017-03-26 | Outpatient (CLI) | payer MEDICARE, BC ==
--- NOTE | 2017-03-26 15:41 | BD ---
EXAMINATION TYPE: MG DEXA axial skeleton. DATE OF EXAM: 03/26/2017 COMPARISON: NONE CLINICAL HISTORY: 72 year-old female breast cancer and osteopenia Height: 61 IN Weight: 156 LBS FRAX RISK QUESTIONS: Alcohol (3 or more units per day): NO Family History (Parent hip fracture): NO Glucocorticoids (More than 3mos): NO (Ex: prednisone, prednisolone, methylprednisolone, dexamethasone, and hydrocortisone). History of Fracture in Adulthood: NO Secondary Osteoporosis: 1. Type 1 Diabetes: NO 2. Hyperthyroidism: NO 3. Menopause before 45: AGE 52 4. Malnutrition: NO 5. Chronic liver disease: NO Rheumatoid Arthritis: NO Current Tobacco Use: NO RISK FACTORS HISTORY OF: Surgery to Hip(right): 2006 When: 2006 Active: YES Diet low in dairy products/other sources of calcium: YES Postmenopausal woman: AGE 52 Take estrogen and/or progesterone medications: NOT NOW How long: AGE 50 - 55 MEDICATIONS: Osteoporosis Medications: NOT NOW Which medication: Boniva How Long:AGE 60 - 62 Additional Medications: CALCIUM, VIT D, CHOLESTEROL MED, SEIZURE MEDS, BLOOD PRESSURE MEDS, DIABETES MEDS, METFORMIN Additional History: BREAST CANCER WITH RADIATION AGE 62 EXAM MEASUREMENTS: Bone mineral densitometry was performed using the [employer] System. Bone mineral density as measured about the Lumbar spine is: ----- L1-L4(G/cm2): 1.358 T Score Values are as follows: ----- L2: 0.7 ----- L3: 2.3 ----- L4: 1.5 ----- L1-L4: 1.5 Bone mineral density has: Decreased -8.7% since study of: 08/01/2014 PT HAD A TOTAL RT HIP DONE IN 2006 Bone mineral density about the L hip (g/cm2): 0.841 T Score values are as follows: -----L Neck: -1.4 -----L Total: -1.1 Bone mineral density has: Decreased -8.7% since study of: 08/01/2014 IMPRESSION: Osteopenia as indicated by T score values in the left hip. There is slightly increased risk of fracture and the patient may be considered for treatment. Re-Screen 2-5 years. NOTE: T-SCORE=SD OF THE YOUNG ADULT MEAN.
== END | disposition home or self-care (01) ==
LOC: RADBDWWP 10:20
PROVIDERS: ATTEND Internal Medicine Hematology & Oncology
DX: M85.88 Other specified disorders of bone density and structure, other site (principal); C50.919 Malignant neoplasm of unspecified site of unspecified female breast; N95.1 Menopausal and female climacteric states; Z79.890 Hormone replacement therapy
CPT/HCPCS: 77080

== ENCOUNTER 2017-05-13 09:21 | Inpatient (IN) | payer MEDICARE, BC ==
[2017-05-13 09:46] LABS: Glucose,Whole Blood 117 mg/dL (75-99)
[2017-05-13] MEDS ORDERED: SODIUM CHLORIDE 0.9% 1,000 ML IV ONE (09:58)
--- NOTE | 2017-05-13 10:05 | ED ---
Altered Mental Status HPI - General Chief Complaint: Altered Mental Status Stated Complaint: Poss Altered mental Status Time Seen by Provider: 05/13/17 09:38 Source: patient, family, RN notes reviewed Mode of arrival: ambulatory Limitations: no limitations - History of Present Illness Initial Comments: This is a 72-year-old female with a history of a gamma knife procedure for a meningioma and a primary brain cancer left-sided her brain earlier this year who is brought in for evaluation of altered level of consciousness with confusion with respect to date and month some right-sided trembling of her arm also some slurred speech. The slurred speech. He started around 9 PM last night he other symptoms have been on and off for the past 4 days. The procedure was done in March of this year. Patient had no fevers chills nausea vomiting sweats and currently denies any focal weakness. MD Complaint: altered mental status - Related Data Home Medications Medication Instructions Recorded Confirmed Atorvastatin Calcium [Lipitor] 10 mg PO HS 10/21/16 05/13/17 Anastrozole [Arimidex] 1 mg PO DAILY 12/22/16 05/13/17 metFORMIN HCL [Glucophage] 1,000 mg PO QAM 12/22/16 05/13/17 risperiDONE 0.5 mg PO HS 12/22/16 05/13/17 Meclizine [Antivert] 12.5 - 25 mg PO TID PRN 05/13/17 05/13/17 Mirabegron [Myrbetriq] 25 mg PO DAILY 05/13/17 05/13/17 metFORMIN HCL [Glucophage] 500 mg PO W/SUPPER 05/13/17 05/13/17 Previous Rx's Medication Instructions Recorded Carvedilol [Coreg] 12.5 mg PO BID 30 Days 04/19/16 Melatonin 3 mg PO HS tablet 10/24/16 Allergies Allergy/AdvReac Type Severity Reaction Status Date / Time Sulfa (Sulfonamide Allergy Unknown Unknown Verified 05/13/17 11:00 Antibiotics) egg AdvReac Diarrhea Verified 05/13/17 11:00 solifenacin [From Vesicare] AdvReac Confusion/s Verified 05/13/17 11:00 haking Review of Systems ROS Statement: Those systems with pertinent positive or pertinent negative responses have been documented in the HPI. ROS Other: All systems not noted in ROS Statement are negative. Past Medical History Past Medical History: Cancer, CVA/TIA, Diabetes Mellitus, GERD/Reflux, Hyperlipidemia, Hypertension, Seizure Disorder Additional Past Medical History / Comment(s): Intracranial bleed July 2015, overactive bladder, UTI, Breast cancer, RT mastectomy/lumpectomy. History of Any Multi-Drug Resistant Organisms: None Reported Past Surgical History: Hysterectomy Additional Past Surgical History / Comment(s): Total hysterectomy, right hip arthroplasty, laser surgery of the right eye of her bleeding, bladder suspension , right elbow metal plate Past Anesthesia/Blood Transfusion Reactions: No Reported Reaction Past Psychological History: Anxiety, Bipolar, Depression Smoking Status: Former smoker Past Alcohol Use History: None Reported Past Drug Use History: None Reported - Past Family History Father Family Medical History: No Reported History Additional Family Medical History / Comment(s): Father is alive in his 80s and is a smoker. Patient does not know his medical history. Mother Family Medical History: No Reported History Additional Family Medical History / Comment(s): Mother at age 79 from Alzheimer's dementia. Sister(s) Additional Family Medical History / Comment(s): She has one sister that is from heart failure. Patient does not have any brothers. Patient has 2 daughters that are 45 and 42 years of age with no major medical problems. General Exam - General Exam Comments Initial Comments: This is a well-developed well-nourished awake alert female who believes this 1975 but otherwise altered date and age and the month. Limitations: no limitations General appearance: alert, in no apparent distress Head exam: Present: atraumatic, normocephalic, normal inspection Eye exam: Present: normal appearance, PERRL, EOMI. Absent: scleral icterus, conjunctival injection, periorbital swelling ENT exam: Present: mucous membranes dry Neck exam: Present: normal inspection. Absent: tenderness, meningismus, lymphadenopathy Respiratory exam: Present: normal lung sounds bilaterally. Absent: respiratory distress, wheezes, rales, rhonchi, stridor Cardiovascular Exam: Present: regular rate, normal rhythm, normal heart sounds. Absent: systolic murmur, diastolic murmur, rubs, gallop, clicks GI/Abdominal exam: Present: soft, normal bowel sounds. Absent: distended, tenderness, guarding, rebound, rigid Extremities exam: Present: normal inspection, full ROM, normal capillary refill. Absent: tenderness, pedal edema, joint swelling, calf tenderness Back exam: Present: normal inspection Neurological exam: Present: alert, altered, CN II-XII intact Psychiatric exam: Present: normal affect, normal mood Skin exam: Present: warm, dry, intact, normal color. Absent: rash Course Vital Signs 05/13/17 05/13/17 05/13/17 09:26 10:29 11:00 Temperature 97 F L Pulse Rate 69 67 69 Respiratory 18 18 20 Rate Blood Pressure 140/106 196/94 160/83 O2 Sat by Pulse 99 97 98 Oximetry 05/13/17 05/13/17 05/13/17 12:00 13:00 14:00 Temperature Pulse Rate 71 78 74 Respiratory 18 20 18 Rate Blood Pressure 180/86 169/94 162/83 O2 Sat by Pulse 99 99 100 Oximetry - Reevaluation(s) Reevaluation #1: 05/13/17 14:45 I did have one discussed with patient's neurosurgeon Dr. Monae at [facility] in [facility]. I did discuss the findings the patient does not need to be transferred at this time there is no neurosurgical intervention dictated. Patient apparently has had some recurrent episodes of this. The question is whether this may be representing a partial seizure patient currently has no tremor. Patient has seen Dr. Sotelo in the past at this facility. Patient will be admitted with consultation by Dr. Sotelo. EEG may be indicated. 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 Monae. This was on March 11 of this year. Reevaluation #2: 05/13/17 15:22 The original desire the patient was be transferred to [facility] I did discuss the case as stated with Dr. Monae who did recommend local admission with local neurological evaluation. The family is fitted with this. Patient will be admitted to [facility]. Medical Decision Making - Medical Decision Making I did a long discussion with patient family regarding the findings patient still is confused as to the date though her speech has improved patient will be admitted at this facility. - Lab Data Result diagrams: 05/13/17 09:55 05/13/17 09:55 Lab Results 05/13/17 05/13/17 05/13/17 Range/Units 09:43 09:55 09:55 WBC (3.8-10.6) k/uL RBC (3.80-5.40) m/uL Hgb (11.4-16.0) gm/dL Hct (34.0-46.0) % MCV (80.0-100.0) fL MCH (25.0-35.0) pg MCHC (31.0-37.0) g/dL RDW (11.5-15.5) % Plt Count (150-450) k/uL Neutrophils % % Lymphocytes % % Monocytes % % Eosinophils % % Basophils % % Neutrophils # (1.3-7.7) k/uL Lymphocytes # (1.0-4.8) k/uL Monocytes # (0-1.0) k/uL Eosinophils # (0-0.7) k/uL Basophils # (0-0.2) k/uL PT (9.0-12.0) sec INR (<1.2) APTT (22.0-30.0) sec Sodium (137-145) mmol/L Potassium (3.5-5.1) mmol/L Chloride (98-107) mmol/L Carbon Dioxide (22-30) mmol/L Anion Gap mmol/L BUN (7-17) mg/dL Creatinine (0.52-1.04) mg/dL Est GFR (MDRD) Af Amer (>60 ml/min/1.73 sqM) Est GFR (MDRD) Non-Af (>60 ml/min/1.73 sqM) Glucose (74-99) mg/dL POC Glucose (mg/dL) 117 H (75-99) mg/dL POC Glu Cold Roll Catcher ID Semaj Byrne Calcium (8.4-10.2) mg/dL Total Bilirubin (0.2-1.3) mg/dL AST (14-36) U/L ALT (9-52) U/L Alkaline Phosphatase (38-126) U/L Ammonia <9 (<30) umol/L Total Creatine Kinase 48 (30-135) U/L CK-MB (CK-2) 0.7 (0.0-2.4) ng/mL CK-MB (CK-2) Rel Index 1.5 Troponin I <0.012 (0.000-0.034) ng/mL Total Protein (6.3-8.2) g/dL Albumin (3.5-5.0) g/dL Urine Color Urine Appearance (Clear) Urine pH (5.0-8.0) Ur Specific [place] (1.001-1.035) Urine Protein (Negative) Urine Glucose (UA) (Negative) Urine Ketones (Negative) Urine Blood (Negative) Urine Nitrite (Negative) Urine Bilirubin (Negative) Urine Urobilinogen (<2.0) mg/dL Ur Leukocyte Esterase (Negative) Urine WBC (0-5) /hpf Urine WBC Clumps (None) /hpf Ur Squamous Epith Cells (0-4) /hpf Urine Bacteria (None) /hpf Hyaline Casts (0-2) /lpf Urine Mucus (None) /hpf Urine Opiates Screen (NotDetected) Ur Oxycodone Screen (NotDetected) Urine Methadone Screen (NotDetected) Ur Propoxyphene Screen (NotDetected) Ur Barbiturates Screen (NotDetected) U Tricyclic Antidepress (NotDetected) Ur Phencyclidine Scrn (NotDetected) Ur Amphetamines Screen (NotDetected) U Methamphetamines Scrn (NotDetected) U Benzodiazepines Scrn (NotDetected) Urine Cocaine Screen (NotDetected) U Marijuana (THC) Screen (NotDetected) 05/13/17 05/13/17 05/13/17 Range/Units 09:55 09:55 09:55 WBC 6.8 (3.8-10.6) k/uL RBC 4.46 (3.80-5.40) m/uL Hgb 13.5 (11.4-16.0) gm/dL Hct 39.5 (34.0-46.0) % MCV 88.5 (80.0-100.0) fL MCH 30.1 (25.0-35.0) pg MCHC 34.0 (31.0-37.0) g/dL RDW 13.6 (11.5-15.5) % Plt Count 249 (150-450) k/uL Neutrophils % 69 % Lymphocytes % 19 % Monocytes % 8 % Eosinophils % 2 % Basophils % 1 % Neutrophils # 4.7 (1.3-7.7) k/uL Lymphocytes # 1.3 (1.0-4.8) k/uL Monocytes # 0.5 (0-1.0) k/uL Eosinophils # 0.1 (0-0.7) k/uL Basophils # 0.1 (0-0.2) k/uL PT 10.6 (9.0-12.0) sec INR 1.0 (<1.2) APTT 22.6 (22.0-30.0) sec Sodium 139 (137-145) mmol/L Potassium 4.5 (3.5-5.1) mmol/L Chloride 107 (98-107) mmol/L Carbon Dioxide 21 L (22-30) mmol/L Anion Gap 11 mmol/L BUN 17 (7-17) mg/dL Creatinine 0.51 L (0.52-1.04) mg/dL Est GFR (MDRD) Af Amer >60 (>60 ml/min/1.73 sqM) Est GFR (MDRD) Non-Af >60 (>60 ml/min/1.73 sqM) Glucose 108 H (74-99) mg/dL POC Glucose (mg/dL) (75-99) mg/dL POC Glu Cold Roll Catcher ID Calcium 9.8 (8.4-10.2) mg/dL Total Bilirubin 0.5 (0.2-1.3) mg/dL AST 19 (14-36) U/L ALT 27 (9-52) U/L Alkaline Phosphatase 113 (38-126) U/L Ammonia (<30) umol/L Total Creatine Kinase (30-135) U/L CK-MB (CK-2) (0.0-2.4) ng/mL CK-MB (CK-2) Rel Index Troponin I (0.000-0.034) ng/mL Total Protein 6.7 (6.3-8.2) g/dL Albumin 3.9 (3.5-5.0) g/dL Urine Color Urine Appearance (Clear) Urine pH (5.0-8.0) Ur Specific [place] (1.001-1.035) Urine Protein (Negative) Urine Glucose (UA) (Negative) Urine Ketones (Negative) Urine Blood (Negative) Urine Nitrite (Negative) Urine Bilirubin (Negative) Urine Urobilinogen (<2.0) mg/dL Ur Leukocyte Esterase (Negative) Urine WBC (0-5) /hpf Urine WBC Clumps (None) /hpf Ur Squamous Epith Cells (0-4) /hpf Urine Bacteria (None) /hpf Hyaline Casts (0-2) /lpf Urine Mucus (None) /hpf Urine Opiates Screen (NotDetected) Ur Oxycodone Screen (NotDetected) Urine Methadone Screen (NotDetected) Ur Propoxyphene Screen (NotDetected) Ur Barbiturates Screen (NotDetected) U Tricyclic Antidepress (NotDetected) Ur Phencyclidine Scrn (NotDetected) Ur Amphetamines Screen (NotDetected) U Methamphetamines Scrn (NotDetected) U Benzodiazepines Scrn (NotDetected) Urine Cocaine Screen (NotDetected) U Marijuana (THC) Screen (NotDetected) 05/13/17 Range/Units 10:25 WBC (3.8-10.6) k/uL RBC (3.80-5.40) m/uL Hgb (11.4-16.0) gm/dL Hct (34.0-46.0) % MCV (80.0-100.0) fL MCH (25.0-35.0) pg MCHC (31.0-37.0) g/dL RDW (11.5-15.5) % Plt Count (150-450) k/uL Neutrophils % % Lymphocytes % % Monocytes % % Eosinophils % % Basophils % % Neutrophils # (1.3-7.7) k/uL Lymphocytes # (1.0-4.8) k/uL Monocytes # (0-1.0) k/uL Eosinophils # (0-0.7) k/uL Basophils # (0-0.2) k/uL PT (9.0-12.0) sec INR (<1.2) APTT (22.0-30.0) sec Sodium (137-145) mmol/L Potassium (3.5-5.1) mmol/L Chloride (98-107) mmol/L Carbon Dioxide (22-30) mmol/L Anion Gap mmol/L BUN (7-17) mg/dL Creatinine (0.52-1.04) mg/dL Est GFR (MDRD) Af Amer (>60 ml/min/1.73 sqM) Est GFR (MDRD) Non-Af (>60 ml/min/1.73 sqM) Glucose (74-99) mg/dL POC Glucose (mg/dL) (75-99) mg/dL POC Glu Cold Roll Catcher ID Calcium (8.4-10.2) mg/dL Total Bilirubin (0.2-1.3) mg/dL AST (14-36) U/L ALT (9-52) U/L Alkaline Phosphatase (38-126) U/L Ammonia (<30) umol/L Total Creatine Kinase (30-135) U/L CK-MB (CK-2) (0.0-2.4) ng/mL CK-MB (CK-2) Rel Index Troponin I (0.000-0.034) ng/mL Total Protein (6.3-8.2) g/dL Albumin (3.5-5.0) g/dL Urine Color Yellow Urine Appearance Cloudy H (Clear) Urine pH 6.0 (5.0-8.0) Ur Specific [place] 1.010 (1.001-1.035) Urine Protein Negative (Negative) Urine Glucose (UA) Negative (Negative) Urine Ketones Negative (Negative) Urine Blood Negative (Negative) Urine Nitrite Negative (Negative) Urine Bilirubin Negative (Negative) Urine Urobilinogen <2.0 (<2.0) mg/dL Ur Leukocyte Esterase Large H (Negative) Urine WBC >182 H (0-5) /hpf Urine WBC Clumps Occasional H (None) /hpf Ur Squamous Epith Cells 4 (0-4) /hpf Urine Bacteria Many H (None) /hpf Hyaline Casts 2 (0-2) /lpf Urine Mucus Rare H (None) /hpf Urine Opiates Screen Not Detected (NotDetected) Ur Oxycodone Screen Not Detected (NotDetected) Urine Methadone Screen Not Detected (NotDetected) Ur Propoxyphene Screen Not Detected (NotDetected) Ur Barbiturates Screen Not Detected (NotDetected) U Tricyclic Antidepress Not Detected (NotDetected) Ur Phencyclidine Scrn Not Detected (NotDetected) Ur Amphetamines Screen Not Detected (NotDetected) U Methamphetamines Scrn Not Detected (NotDetected) U Benzodiazepines Scrn Not Detected (NotDetected) Urine Cocaine Screen Not Detected (NotDetected) U Marijuana (THC) Screen Not Detected (NotDetected) - EKG Data -: EKG Interpreted by Me EKG shows normal: sinus rhythm (Sinus rhythm rate of 71. Interval 162 QRS 74 QT since QTC of 14/445 left exodeviation moderate voltage criteria for LVH no acute ST-T wave changes artifact is present.) - Radiology Data Radiology results: report reviewed (I did review the imaging and report no evidence of acute findings including a CT.), image reviewed Disposition Clinical Impression: TIA (transient ischemic attack) Disposition: ADMITTED IP TO THIS HOSP Condition: Stable Referrals: Mani Hunt DO [Primary Care Provider] - 1-2 days
[2017-05-13 10:18] LABS: Basophils # (A) 0.1 k/uL (0-0.2); Basophils % (A) 1 %; CH 31.4; CHCM 35.6; Eosinophils # (A) 0.1 k/uL (0-0.7); Eosinophils % (A) 2 %; HCT 39.5 % (34.0-46.0); HDW 2.82; HGB 13.5 gm/dL (11.4-16.0); Luc # (Auto) 0.15; Luc % (Auto) 2; Lymphocytes # (A) 1.3 k/uL (1.0-4.8); Lymphocytes % (A) 19 %; MCH 30.1 pg (25.0-35.0); MCV 88.5 fL (80.0-100.0); Mean Platelet Volume 6.9; Monocytes # (A) 0.5 k/uL (0-1.0); Monocytes % (A) 8 %; Neutrophils # (A) 4.7 k/uL (1.3-7.7); Neutrophils % (A) 69 %; RBC 4.46 m/uL (3.80-5.40); RDW 13.6 % (11.5-15.5); WBC 6.8 k/uL (3.8-10.6); WBC (Perox) 6.97
[2017-05-13 10:31] LABS: Partial Thromboplastin Time 22.6 sec (22.0-30.0); Prothrombin Time 10.6 sec (9.0-12.0)
[2017-05-13 10:42] LABS: ALT 27 U/L (9-52); AST 19 U/L (14-36); Alkaline Phosphatase 113 U/L (38-126); Anion Gap 11 mmol/L; Blood Urea Nitrogen 17 mg/dL (7-17); Calcium 9.8 mg/dL (8.4-10.2); Carbon Dioxide 21 mmol/L (22-30); Chloride 107 mmol/L (98-107); Glucose 108 mg/dL (74-99); Non-African American GFR(MDRD) >60 (>60 ml/min/1.73 sqM); Potassium 4.5 mmol/L (3.5-5.1); Sodium 139 mmol/L (137-145); Total Bilirubin 0.5 mg/dL (0.2-1.3); Total Protein 6.7 g/dL (6.3-8.2)
[2017-05-13 10:46] LABS: Creatine Kinase 48 U/L (30-135)
[2017-05-13 10:50] LABS: Appearance,Urine Cloudy (Clear); Bacteria,Urine Many /hpf; Bilirubin,Urine Negative (Negative); Glucose,Urine (UA) Negative (Negative); Ketones,Urine Negative (Negative); Leukocyte Esterase,Urine Large (Negative); Mucus,Urine Rare /hpf; Nitrite,Urine Negative (Negative); Particle Count 5388; Protein,Urine Negative (Negative); Squamous Epithelial Cell,Urine 4 /hpf (0-4); UA Billing (MACRO vs. MICRO) MICRO; Urobilinogen,Urine <2.0 mg/dL (<2.0); WBC,Urine >182 /hpf (0-5)
--- NOTE | 2017-05-13 10:52 | CT ---
EXAMINATION TYPE: CT brain wo con DATE OF EXAM: 05/13/2017 COMPARISON: 10/21/2016 and 07/26/2015. HISTORY: ams, confusion CT DLP: 1017.9 mGycm. Automated Exposure Control for Dose Reduction was Utilized. TECHNIQUE: CT scan of the head is performed without contrast. FINDINGS: Stable dystrophic calcification from prior injury is seen within the left parietal lobe, a ppearing more posterior on today's examination but within the same location given differences in kinza ent positioning. There is no acute intracranial hemorrhage, mass effect, or midline shift identified. The ventricles and sulci are symmetrically prominent compatible with age-related volume loss. Few f oci of hypointensity are seen within the periventricular and subcortical white matter. The globes ar e intact and the visualized sinuses are clear. IMPRESSION: 1. No acute intracranial hemorrhage, mass effect, or midline shift is seen. 2. Stable dystrophic calcification within the left parietal lobe from remote injury. 3. Mild nonspecific white matter changes, likely related to chronic microangiopathy.
[2017-05-13 10:58] LABS: Creatine Kinase MB 0.7 ng/mL (0.0-2.4); Troponin I <0.012 ng/mL (0.000-0.034)
--- NOTE | 2017-05-13 11:15 | XR ---
EXAMINATION TYPE: XR chest 2V DATE OF EXAM: 05/13/2017 HISTORY: altered mental status. REFERENCE: Previous study dated 05/12/2016. FINDINGS: The lungs are clear. Pleural spaces are clear. Heart size is normal. There is unfolding of the thoracic aorta. There is been interval development of multiple, healed right-sided rib fractures. IMPRESSION: NO ACUTE INTRATHORACIC ABNORMALITY.
[2017-05-13] MEDS ORDERED: SODIUM CHLORIDE 0.9% 1,000 ML IV STA (12:03)
--- NOTE | 2017-05-13 16:39 | US ---
EXAMINATION TYPE: US carotid duplex BILAT DATE OF EXAM: 05/13/2017 COMPARISON: US CLINICAL HISTORY: Stenosis. Dysphagia, disorientation EXAM MEASUREMENTS: RIGHT: Peak Systolic Velocity (PSV) cm/sec ----- Right CCA: 71.2 ----- Right ICA: 82.6 ----- Right ECA: 64.3 ICA/CCA ratio: 1.2 RIGHT: End Diastole cm/sec ----- Right CCA: 17.1 ----- Right ICA: 25.0 ----- Right ECA: 4.9 LEFT: Peak Systolic Velocity (PSV) cm/sec ----- Left CCA: 71.2 ----- Left ICA: 97.6 ----- Left ECA: 48.5 ICA/CCA ratio: 1.4 LEFT: End Diastole cm/sec ----- Left CCA: 15.4 ----- Left ICA: 29.3 ----- Left ECA: 6.6 VERTEBRALS (direction of flow): Right Vertebral: Antegrade Left Vertebral: Antegrade No significant velocity elevations IMPRESSION: No evidence of hemodynamically significant stenosis within either carotid system.
[2017-05-13] MEDS: SODIUM CHLORIDE 0.9% 1,000 ML IV SCH (17:46)
[2017-05-13] MEDS: INSULIN LISPRO (humaLOG) 300 UNIT/3 ML VIAL SQ SCH ×2 (17:46→21:27)
[2017-05-13] MEDS: metFORMIN 500 MG TAB PO SCH (17:56)
[2017-05-13 20:23] LABS: Glucose,Whole Blood 183 mg/dL (75-99)
[2017-05-13 20:59] LABS: Hemoglobin A1C 6.5 % (4.2-6.1)
[2017-05-13] MEDS: CARVEDILOL 12.5 MG TAB PO SCH (21:26)
[2017-05-13] MEDS: MELATONIN 3 MG TABLET PO SCH (21:26)
[2017-05-13] MEDS: risperiDONE 0.5 MG TAB PO SCH (21:26)
[2017-05-13] MEDS: ATORVASTATIN 10 MG TAB PO SCH (21:26)
[2017-05-14 03:44] LABS: Cholesterol 172 mg/dL (<200); HDL Cholesterol 65 mg/dL (40-60)
[2017-05-14] MEDS: INSULIN LISPRO (humaLOG) 300 UNIT/3 ML VIAL SQ SCH ×4 (07:31→21:26)
[2017-05-14 07:33] LABS: Glucose,Whole Blood 115 mg/dL (75-99)
[2017-05-14] MEDS ORDERED: NON-FORMULARY DRUG (Mirabegron [Myrbetriq] 25 MG) PO SCH (09:00)
[2017-05-14 09:09] VITALS: RESP 18
[2017-05-14] MEDS: metFORMIN 500 MG TAB PO SCH ×2 (09:17→19:09)
[2017-05-14] MEDS: ENOXAPARIN 40 MG/0.4 ML SYRINGE SQ SCH (09:17)
[2017-05-14] MEDS: CARVEDILOL 12.5 MG TAB PO SCH ×2 (09:17→21:08)
[2017-05-14] MEDS: ANASTROZOLE 1 MG TAB PO SCH (09:17)
--- NOTE | 2017-05-14 12:50 | HP ---
DATE OF ADMISSION: 05/13/17 PRESENTING COMPLAINT: Feeling off. HISTORY OF PRESENTING COMPLAINT: This is a very pleasant 72-year-old patient whose chronic stable medical conditions include SIADH, seizure, diabetes, GERD, hypertension, hyperlipidemia, intracranial bleed in 2014, bipolar. The patient had a meningioma that had gamma knife resection on March 11, 2017. Two days ago , the patient started feeling a bit funny in the head, slight tremors, a little bit confused, slightly unsteady. No nausea or vomiting. Very slight headache. Because of these symptoms, she presented to the ER. No fever. REVIEW OF SYSTEMS: Constitutional: None. HEENT: As above. Respiratory: None. Cardiovascular: None. Gastrointestinal: Heartburn. : None. Musculoskeletal: None. Dermatological: None. Hematological: None. Lymphatics : None. PSYCHIATRY: None. Neurological: As above. Past medical history of SIADH, seizure, diabetes, GERD, hypertension, hyperlipidemia, intracranial bleed in 2014, bipolar disorder. Past surgical history: Hysterectomy, right hip arthroplasty, laser surgery of the right eye. ( ) bleeding. Bladder suspension. Right elbow metal plate. Past psych history of bipolar disorder. SOCIAL HISTORY: The patient does not smoke or drink alcohol. . Occasionally uses a cane. FAMILY HISTORY: Reviewed. Noncontributory to presentation. Home medications: 1. Risperdal 0.5 mg po q.h.s. 2. Metformin 500 mg po with supper. 3. Myrbetriq 25 mg po daily. 4. Melatonin 3 mg po q.h.s. 5. Antivert 50/12.5/25 po t.i.d. prn. 6. Coreg 12.5 po b.i.d. 7. Lipitor 10 mg po q.h.s. 8. Arimidex 1 mg po daily. 9. Glucophage 1000 mg po daily. ALLERGIES: SULFUR, EGG, VESICARE. On examination, vital signs on presentation: Temperature 98.3. Pulse 76. Respiratory rate 18. Blood pressure 117/90. Pulse ox 98% on room air. GENERAL APPEARANCE: Average built. Lying in bed, not in distress. EYES: pupils equal. Conjunctivae normal. HEENT: Oral cavity normal. NECK: JVD not raised. Mass not palpable. RESPIRATORY: Effort normal. LUNGS: Clear. CARDIOVASCULAR: First and second sounds normal. No edema. ABDOMEN: Soft, nontender. Liver and spleen not palpable. LYMPHATICS: No lymph nodes palpable in the neck and axillae. PSYCHIATRIC: The patient is alert and oriented times three. Mood and affect normal. NEUROLOGICAL: Pupils equal and cranial nerves grossly intact. Power and sensation grossly intact. INVESTIGATIONS: White count 6.8, hemoglobin 13.5. Potassium 4.5. BUN 17. Creatinine 0.51. UA positive. CT scan of the brain shows nonspecific findings. EKG normal sinus rhythm. Carotid Doppler no significant. ASSESSMENT: 1. This is a patient who has a gamma knife resection of meningioma on February, presented with nonspecific symptoms, some ( ). This could be possibly low grade seizure in a patient who has had prior seizure disorder. 2. Diabetes mellitus Type 2, on oral hypoglycemics. 3. GERD. 4. Essential hypertension, uncontrolled. 5. Hyperlipidemia. 6. History of ( ). 7. Bipolar disorder. PLAN: Home medications are resumed. We will do neuro checks. Consult neurology. We will order an EEG. Lovenox for DVT prophylaxis. Copy to Dr. Hunt. [email or web address]
[2017-05-14 14:07] LABS: Glucose,Whole Blood 162 mg/dL (75-99)
--- NOTE | 2017-05-14 15:49 | P.PN ---
<Millie Peres - Last Filed: 05/14/17 15:38> Progress Note - Text DATE OF SERVICE: 05/14/2017 PRESENTING COMPLAINT: Mental status changes HISTORY OF PRESENT ILLNESS: 72-year-old female who began feeling "not right", some tremoring, confused, unsteady. Patient has a history of Clarke I for resection of a meningioma February 2017 in light of this patient was admitted for further evaluation. INTERVAL HISTORY: 05/14/2017: Patient sitting up in the bed appears comfortable. States she has had improvement in her original presenting symptoms. Await input from neurology. Does still have a tendency to lean a little bit to the left. Ambulatory in the room, tolerating her diet eating about 50%. Moving her bowels. REVIEW OF SYSTEMS: Done for constitutional ,cardiovascular, GI, pulmonary with relevant findings as above. CURRENT MEDICATIONS Lipitor, Coreg, Lovenox, melatonin, Glucophage, Risperdal. PHYSICAL EXAM VITAL SIGNS: Temperature 98.8, pulse 69, respiratory rate 18, blood pressure 118 /70, oxygen saturation 96% on room air. GENERAL APPEARANCE: Sitting up in bed, not in distress. EYES: Pupils equal. Conjunctiva normal. NECK: JVD not raised. Mass not palpable. RESPIRATORY: Respiratory effort normal. Lungs clear to auscultation. CARDIOVASCULAR: First and second sounds normal. No edema. ABDOMEN: Soft. Liver and spleen not palpable. No tenderness. No mass palpable. PSYCHIATRY: Alert and oriented x3. Mood and affect normal. NEUROLOGICAL: Cranial nerves grossly intact. No facial asymmetry. Power and sensation grossly intact INVESTIGATIONS: No new labs ASSESSMENT: -Status post gamma knife resection of meningioma presented with nonspecific symptoms, possibly low-grade seizure the patient has a prior seizure disorder. -Diabetes mellitus type 2 on oral hypoglycemics. -GERD -Essential hypertension, uncontrolled. -Hyponatremia. -History of seizure disorder. -Bipolar disorder. PLAN: Neurochecks continue, await input from neurology. EEG pending. We'll follow closely plan of care discussed with the patient and at the bedside. SHANK PINNER statement: Patient was seen and examined by nurse practitioner Millie Peres and all elements of the case discussed with attending Dr. Esteves <Bennett Esteves - Last Filed: 05/14/17 18:33> Progress Note - Text Attending note. Date of service-05/14/2017 This patient was seen and examined by me . Discussed the patient with my nurse practitioner Ms. Peres. Patient laying in bed. It better. Awaiting EEG. Neurology consulted. at the bedside. On examination: Lungs-clear, cardiovascular first seconds are normal Investigations: Pending EEG Assessment and plan: Possible seizures from the site of meningioma resection. Await input from neurology. Care discussed with the patient and the .
[2017-05-14 16:39] LABS: Glucose,Whole Blood 89 mg/dL (75-99)
[2017-05-14] MEDS: SODIUM CHLORIDE 0.9% 1,000 ML IV SCH (17:09)
[2017-05-14] MEDS ORDERED: levETIRAcetam IV 750 MG in SODIUM CHLORIDE 0.9% 100 ML IVPB STA (20:15)
[2017-05-14] MEDS: risperiDONE 0.5 MG TAB PO SCH (21:08)
[2017-05-14] MEDS: ATORVASTATIN 10 MG TAB PO SCH (21:08)
[2017-05-14] MEDS: MELATONIN 3 MG TABLET PO SCH (21:08)
[2017-05-14 21:11] LABS: Glucose,Whole Blood 107 mg/dL (75-99)
--- NOTE | 2017-05-14 21:13 | P.CNNES ---
History of Present Illness Consult date: 05/14/17 Requesting physician: Bennett Esteves Reason for Consult: AMS Chief complaint: AMS and Jerking activity History of Present Illness: The patient is a pleasant 72-year-old female who is being evaluated by the neurology service per the request of Dr. Esteves for altered mental status and recurrent right upper extremity jerking activity. The patient was brought into [facility] emergency room after her noticed that she was having increased confusion and was slurring her speech. He also claims that she has been having recurrent episodes of jerking activity involving the right upper extremity which can last several minutes without any altered consciousness or loss of consciousness. The patient does have history of gamma knife procedure for a meningioma and this treatment occurred a few months ago. She continues to follow up at [facility] for this. I did review her computed tomography scan of the brain which didn't show calcification involving the left parietal lobe which was felt to be stable when compared to her 2015 study. No acute intracranial abnormalities were seen. Her carotid Doppler showed no hemodynamically significant stenosis. Her CBC, comprehensive metabolic profile, INR, cardiac enzymes, fasting lipid panel, and urine drug screen were all reviewed and were normal. Her urinalysis did show greater than 182 WBCs with large leukocyte esterase. I did review her EEG which was normal. At the time of my evaluation, the patient is sitting in her bedside chair and appears to be in no acute distress. She has not had any further jerking activity since her admission. Her was at bedside at the time of my evaluation and he reports significant improvements in her mentation. Review of Systems All systems: negative Constitutional: Denies chills, Denies fever Eyes: denies blurred vision, denies pain Ears, nose, mouth and throat: Denies headache, Denies sore throat Cardiovascular: Denies chest pain, Denies shortness of breath Respiratory: Denies cough Gastrointestinal: Denies abdominal pain, Denies diarrhea, Denies nausea, Denies vomiting Genitourinary: Denies dysuria, Denies hematuria Musculoskeletal: Denies myalgias Integumentary: Denies pruritus, Denies rash Neurological: Reports as per HPI Psychiatric: Denies anxiety, Denies depression Endocrine: Denies fatigue, Denies weight change Past Medical History Past Medical History: Cancer, CVA/TIA, Diabetes Mellitus, GERD/Reflux, Hyperlipidemia, Hypertension, Seizure Disorder Additional Past Medical History / Comment(s): Intracranial bleed July 2015, overactive bladder, multi UTI- ecoli, Breast cancer,meningoma lt side of brain - had gamma knife procedure march 11 2017, RT bx,lumpectomy, lymph node removal." had seizure like symptoms on several ocassions but never got a clear answer if it was". History of Any Multi-Drug Resistant Organisms: None Reported Past Surgical History: Hysterectomy Additional Past Surgical History / Comment(s): Total hysterectomy, right hip arthroplasty, laser surgery of the right eye of her bleeding, bladder suspension , right elbow metal plate , gamma knife procedure for meningoma lt side of brain 03-11-17 Past Anesthesia/Blood Transfusion Reactions: No Reported Reaction Smoking Status: Former smoker - Past Family History Father Family Medical History: No Reported History Additional Family Medical History / Comment(s): Father is alive in his 80s and is a smoker. Patient does not know his medical history. Mother Family Medical History: No Reported History Additional Family Medical History / Comment(s): Mother at age 79 from Alzheimer's dementia. Sister(s) Additional Family Medical History / Comment(s): She has one sister that is from heart failure. Patient does not have any brothers. Patient has 2 daughters that are 45 and 42 years of age with no major medical problems. Medications and Allergies Home Medications Medication Instructions Recorded Confirmed Type Atorvastatin Calcium [Lipitor] 10 mg PO HS 10/21/16 05/13/17 History Anastrozole [Arimidex] 1 mg PO DAILY 12/22/16 05/13/17 History metFORMIN HCL [Glucophage] 1,000 mg PO QAM 12/22/16 05/13/17 History risperiDONE 0.5 mg PO HS 12/22/16 05/13/17 History Meclizine [Antivert] 12.5 - 25 mg PO TID PRN 05/13/17 05/13/17 History Mirabegron [Myrbetriq] 25 mg PO DAILY 05/13/17 05/13/17 History metFORMIN HCL [Glucophage] 500 mg PO W/SUPPER 05/13/17 05/13/17 History Allergies Allergy/AdvReac Type Severity Reaction Status Date / Time Sulfa (Sulfonamide Allergy Unknown Unknown Verified 05/13/17 11:00 Antibiotics) egg AdvReac Diarrhea Verified 05/13/17 11:00 solifenacin [From Vesicare] AdvReac Confusion/s Verified 05/13/17 11:00 haking Physical Examination - Vital Signs Vital Signs: Vital Signs Temp Pulse Resp BP Pulse Ox 05/14/17 16:21 98.4 F 76 18 124/71 97 05/14/17 16:00 98.4 F 76 18 124/71 97 05/14/17 12:23 98.8 F 69 18 118/70 96 05/14/17 12:00 98.8 F 69 18 118/70 96 05/14/17 10:22 66 18 126/74 95 05/14/17 08:23 98.6 F 70 18 149/78 94 L 05/14/17 08:00 98.6 F 70 18 149/78 94 L 05/14/17 04:19 71 16 05/14/17 04:00 71 16 137/76 95 05/14/17 00:00 75 16 135/69 97 Intake and Output 05/14/17 05/14/17 05/14/17 06:59 14:59 22:59 Intake Total 1400 660 200 Output Total 500 Balance 1400 660 -300 Intake: Intake, IV Titration 1000 Amount Sodium Chloride 0.9% 1, 1000 000 ml @ 999 mls/hr IV . Q1H1M STA Rx#:[id number] Oral 400 660 200 Output: Urine 500 Other: Voiding Method Toilet Toilet Toilet # Voids 3 1 3 Weight 72.7 kg - Constitutional General appearance: average body habitus, no acute distress - EENT EENT: ATNC, PERRL, hearing intact - Cardiovascular Cardiovascular: regular rate Extremities: no peripheral edema bilaterally, no clubbing, cyanosis - Gastrointestinal Gastrointestinal: soft, non-tender, non-distended - Integumentary Integumentary: normal - Neurologic The patient is alert aware and oriented 3. Speech and language are normal. Strength is full in all 4 extremities. No lateralizing weakness is seen. Sensory exam was normal to light touch in all 4 extremities. No tremors or seizure-like activity is seen. No facial asymmetry is noticed on cranial nerve testing. [id number] testing showed no dysmetria. - Psychiatric Psychiatric: mood/affect appropriate, cooperative Results - Laboratory Findings CBC and BMP: 05/13/17 09:55 05/13/17 09:55 Abnormal Lab Findings: Abnormal Labs 05/13/17 05/13/17 05/13/17 09:43 09:55 09:55 Carbon Dioxide 21 L Creatinine 0.51 L Glucose 108 H POC Glucose (mg/dL) 117 H Hemoglobin A1c 6.5 H HDL Cholesterol Urine Appearance Ur Leukocyte Esterase Urine WBC Urine WBC Clumps Urine Bacteria Urine Mucus 05/13/17 05/13/17 05/13/17 09:55 10:25 20:22 Carbon Dioxide Creatinine Glucose POC Glucose (mg/dL) 183 H Hemoglobin A1c HDL Cholesterol 65 H Urine Appearance Cloudy H Ur Leukocyte Esterase Large H Urine WBC >182 H Urine WBC Clumps Occasional H Urine Bacteria Many H Urine Mucus Rare H 05/14/17 05/14/17 07:31 11:19 Carbon Dioxide Creatinine Glucose POC Glucose (mg/dL) 115 H 162 H Hemoglobin A1c HDL Cholesterol Urine Appearance Ur Leukocyte Esterase Urine WBC Urine WBC Clumps Urine Bacteria Urine Mucus - Diagnostic Findings Comments: I did review her computed tomography scan of the brain, carotid Doppler, EEG, and all laboratory workup. Assessment and Plan (1) TIA (transient ischemic attack) Status: Acute (2) Focal seizure Status: Acute (3) Altered mental status Status: Acute (4) Brain mass Status: Chronic (5) Urinary tract infection Status: Acute Plan: The patient may have suffered a transient ischemic attack as she did have some right sided weakness and dysarthria along with her confusion. The patient and her report a recent history of intracranial bleeding. Due to this, I will not start her on any antiplatelet therapy. She does have an appointment this Friday with her neuro oncologist at [facility]. If she is cleared to be on aspirin at that time, I did recommend that she start aspirin 81 mg daily. Her carotid Doppler and fasting lipid panels were normal. I will order a serum homocysteine level. As for her recurrent twitching and jerking involving her right upper extremity, this is concerning for focal seizures. Treatment options were discussed with the patient and her . I will start her on Keppra for this. I will give her Keppra 750 mg IV for a loading dose and I will keep her on Keppra 500 mg by mouth twice a day for a maintenance dose. I do recommend antibiotic therapy for her urinary tract infection. Continue the rest of your current workup and management. I will continue to follow with you. Further recommendations to follow. Thank you for allowing me to participate in the care of your patient. If you have any questions, please for free to contact me. Time with Patient: Greater than 30
[2017-05-15 06:07] LABS: Glucose,Whole Blood 106 mg/dL (75-99)
[2017-05-15] MEDS: INSULIN LISPRO (humaLOG) 300 UNIT/3 ML VIAL SQ SCH ×2 (06:23→11:45)
[2017-05-15 06:45] LABS: Basophils % (A) 1 %; CH 31.3; CHCM 36.5; Eosinophils # (A) 0.1 k/uL (0-0.7); Eosinophils % (A) 2 %; HCT 35.7 % (34.0-46.0); HDW 2.88; HGB 12.6 gm/dL (11.4-16.0); Luc # (Auto) 0.22; Luc % (Auto) 4; Lymphocytes # (A) 1.3 k/uL (1.0-4.8); Lymphocytes % (A) 25 %; MCH 30.3 pg (25.0-35.0); MCHC 35.2 g/dL (31.0-37.0); MCV 86.2 fL (80.0-100.0); Monocytes # (A) 0.4 k/uL (0-1.0); Monocytes % (A) 8 %; Neutrophils # (A) 3.2 k/uL (1.3-7.7); Neutrophils % (A) 60 %; RBC 4.14 m/uL (3.80-5.40); RDW 13.7 % (11.5-15.5); WBC 5.3 k/uL (3.8-10.6); WBC (Perox) 5.41
[2017-05-15 06:59] LABS: Anion Gap 10 mmol/L; Blood Urea Nitrogen 13 mg/dL (7-17); Calcium 9.7 mg/dL (8.4-10.2); Carbon Dioxide 21 mmol/L (22-30); Chloride 103 mmol/L (98-107); Glucose 105 mg/dL (74-99); Non-African American GFR(MDRD) >60 (>60 ml/min/1.73 sqM); Potassium 3.9 mmol/L (3.5-5.1); Sodium 134 mmol/L (137-145)
[2017-05-15] MEDS: CARVEDILOL 12.5 MG TAB PO SCH (08:17)
[2017-05-15] MEDS: metFORMIN 500 MG TAB PO SCH (08:17)
[2017-05-15] MEDS: ENOXAPARIN 40 MG/0.4 ML SYRINGE SQ SCH (08:17)
[2017-05-15] MEDS: ANASTROZOLE 1 MG TAB PO SCH (08:18)
[2017-05-15] MEDS ORDERED: levETIRAcetam 500 MG TAB PO SCH (09:00)
[2017-05-15] MEDS ORDERED: LOPERAMIDE 2 MG CAP PO PRN (09:25)
--- NOTE | 2017-05-15 10:11 | EEG ---
ELECTROENCEPHALOGRAM REPORT Date of Service: 05/14/2017. REASON FOR TESTING: Altered mental status. DESCRIPTION OF THE PROCEDURE: This EEG was performed using a 21 channel digital electroencephalograph, following international 10 - 20 system. DESCRIPTION OF THE RECORDING: From the beginning of the tracing, and with the patient's eyes closed, the background rhythm was mostly consisting of 8 Hz alpha frequency in the posterior occipital leads. No obvious asymmetry is seen. Photic stimulation was performed with a minimal driving response seen. No pathological waves were elicited. Hyperventilation was not performed. Rare movement artifacts are seen. The patient remains awake throughout the tracing. No epileptiform discharges were seen. Her EKG leads showed a regular rate and rhythm. INTERPRETATION: This awake EEG can be considered within normal limits. There was no asymmetry seen. No epileptiform discharged were noticed. The absence of epileptiform discharges does not rule out the diagnosis of epilepsy, therefore, clinical correlation is recommended. [id number] / IJAllen: [id number] /
[2017-05-15 11:23] VITALS: BP 125/65; PULSE 65; TEMP 97
[2017-05-15 11:47] LABS: Glucose,Whole Blood 134 mg/dL (75-99)
[2017-05-15] MEDS ORDERED: CIPROFLOXACIN HCL 250 MG TAB PO SCH (14:45)
--- NOTE | 2017-05-15 17:42 | P.DS ---
<Bennett Esteves - Last Filed: 05/15/17 18:11> Providers Date of admission: 05/13/17 15:23 Attending physician: Bennett Esteves Consults: 05/13/17 15:31 Consult Physician Routine Consulting Provider: Luc Longo Consult Reason/Comments: TIA, patient known to Do you want consulting provider notified?: Yes [facility]: Attending note. Date of service-05/15/2017 This patient was seen and examined by me . Discussed the patient with my nurse practitioner Ms. Peres. Feeling better. When he came to go home. Patient noted to have some cognitive impairment. Will follow with neurology. On examination: Lungs-clear, cardio vascular first seconds are normal. Patient able to get the conversation. Investigations: Labs ordered Assessment and plan: Possibly seizure disorder in the patient's had, knife surgery for meningioma with a negative EEG. -Cognitive impairment. Discharge on Keppra and follow with neurology. Patient's is at home with her for monitoring. Plan - Discharge Summary New Discharge Prescriptions: New levETIRAcetam [Keppra] 500 mg PO Q12HR #60 tab Ciprofloxacin HCl [Cipro] 250 mg PO DAILY #5 tab Continue Carvedilol [Coreg] 12.5 mg PO BID 30 Days Atorvastatin Calcium [Lipitor] 10 mg PO HS Melatonin 3 mg PO HS tablet metFORMIN HCL [Glucophage] 1,000 mg PO QAM Anastrozole [Arimidex] 1 mg PO DAILY risperiDONE 0.5 mg PO HS Mirabegron [Myrbetriq] 25 mg PO DAILY metFORMIN HCL [Glucophage] 500 mg PO W/SUPPER Discontinued Meclizine [Antivert] 12.5 - 25 mg PO TID PRN PRN Reason: Vertigo Discharge Medication List Carvedilol [Coreg] 12.5 mg PO BID 30 Days 04/19/16 [Rx] Atorvastatin Calcium [Lipitor] 10 mg PO HS 10/21/16 [History] Melatonin 3 mg PO HS tablet 10/24/16 [Rx] Anastrozole [Arimidex] 1 mg PO DAILY 12/22/16 [History] metFORMIN HCL [Glucophage] 1,000 mg PO QAM 12/22/16 [History] risperiDONE 0.5 mg PO HS 12/22/16 [History] Mirabegron [Myrbetriq] 25 mg PO DAILY 05/13/17 [History] metFORMIN HCL [Glucophage] 500 mg PO W/SUPPER 05/13/17 [History] Ciprofloxacin HCl [Cipro] 250 mg PO DAILY #5 tab 05/15/17 [Rx] levETIRAcetam [Keppra] 500 mg PO Q12HR #60 tab 05/15/17 [Rx] Follow up Appointment(s)/Referral(s): , neurooncologist [Other] - 05/20/17 [facility], [NON-STAFF] - Mani Hunt DO [Primary Care Provider] - 05/21/17 3:00 pm () Luc Longo MD [STAFF PHYSICIAN] - 10 Days (OFFICES WILL CALL WITH AN APPOINTMENT DATE AND TIME.) Patient Instructions/Handouts: Transient Ischemic Attack (DC) Activity/Diet/Wound Care/Special Instructions: Will need cognitive monitoring per speech therapy Discharge Disposition: HOME WITH HOME HEALTH SERVICES <Millie Peres - Last Filed: 05/15/17 19:09> Providers Expected date of discharge: 05/15/17 Hospital Course: FINAL DIAGNOSES: -Status post gamma knife resection of meningioma presented with nonspecific symptoms, possibly low-grade seizure the patient has a prior seizure disorder. -Diabetes mellitus type 2 on oral hypoglycemics. -GERD -Essential hypertension, uncontrolled. -Hyponatremia. -History of seizure disorder. -Bipolar disorder. HOSPTIAL COURSE: 72-year-old female who presented with not "feeling right", some tremoring, confused, unsteady gait with leaning to the right history of gamma knife resection of a meningioma in February 2017. Admitted for low-grade seizure activity /CVA. Neurology,speech, physical and occupational therapy was consulted, carotid Doppler, EEG completed. Patient had some twitching and jumping concerns for focal seizures received loading dose of Keppra IV and will remain on Keppra 500 mg by mouth twice a day. Speech assessment revealed moderate to severe cognitive impairment with recommending 24 /7 supervision. is no longer working, and is currently available at home during the day. Overall condition improved, tolerating her diet eating approximately 75-100% of her meals ambulatory in the room and hallway with standby assist, last bowel movement 05/15/2017. Patient anxious to go home, condition stable and as such will be discharged home to the care of her family. PHYSICAL EXAM: PSYCHIATRY: Alert and oriented 3, mood and affect normal CARDIOVASCULAR: First and second sound noted no edema RESPIRATORY: Effort normal, lungs clear to auscultation MUSKULOSKELETAL: Gait steady, slight lean to the right. NEUROLOGIC: Alert and oriented 3, no tremoring or seizure-like activity strength grossly intact. Patient was seen and examined by nurse practitioner Millie Peres in all elements of the case discussed with attending Dr. Esteves DISPOSITION: Discharge Home to the care of her family
--- NOTE | 2017-05-15 19:45 | P.PN ---
Subjective Principal diagnosis: TIA, focal seizure, altered mental status, brain mass, urinary tract infection Patient is a 72-year-old female being followed by neurology for altered mental status and recurrent right upper extremity open "jerking" activity. Patient was brought to the emergency room after her noticed that she was having increased confusion and was slurring her speech. Spouse also claimed that the patient had recurrent episodes of jerking-like activity involving the right upper extremity which would last several minutes without any altered consciousness or loss of consciousness. Patient does have history of gamma knife procedure for a meningioma in this treatment occurred a few months ago. Patient continues to follow up [facility]. CT of the brain which did show calcification involving the left parietal lobe which was felt to be stable when compared to her 2015 study. No acute intracranial abnormalities were seen. Carotid Doppler showed no hemodynamically significant stenosis. CBC , CMP, INR, cardiac enzymes, fasting lipid panel urine drug screen were all reviewed and normal. Urinalysis did show greater than 182 WBCs with leukocyte Estrace. EEG was taken and normal. At the time of evaluation patient was seated in bedside chair and appears to be in no acute distress. Patient was alert and oriented 3. Patient denies that any jerking like activity has occurred since admission. Patient reports significant improvement in her mentation and overall status. Objective - Vital Signs Vital signs: Vital Signs Temp 97.0 F L 05/15/17 11:21 Pulse 65 05/15/17 11:21 Resp 18 05/15/17 11:21 BP 125/65 05/15/17 11:21 Pulse Ox 97 05/15/17 11:21 Intake & Output 05/15/17 05/15/17 05/16/17 06:59 18:59 06:59 Intake Total 420 Output Total 400 Balance 20 Weight 73.2 kg Intake: Oral 420 Output: Urine 400 Other: Voiding Method Toilet Toilet # Voids 1 1 # Bowel Movements 1 - Exam Constitutional: AOx3, cooperative HEENT: NC/AT, no facial asymmetry is seen. Throat: Supple, no masses Respiratory: No increased work of breathing Cardiac: Regular rate and Rhythm GI: non tender, non distended Musculoskeletal: Template Fitter strengths are equal bilaterally 5/5, Lower extremity strengths are equal bilaterally at 5/5. Neurological: CN II-XII in tact, patient was AOx3, speech and language are normal, no unilateralizing weakness, no seizure activity note on physical exam. Sensation was normal. Integementary: no rash, no erythema Psychiatric: mood and affect appropriate - Labs CBC & Chem 7: 05/15/17 05:55 05/15/17 05:55 Labs: Abnormal Lab Results - Last 24 Hours (Table) 05/14/17 05/15/17 05/15/17 Range/Units 21:10 05:55 06:05 Sodium 134 L (137-145) mmol/L Carbon Dioxide 21 L (22-30) mmol/L Creatinine 0.50 L (0.52-1.04) mg/dL Glucose 105 H (74-99) mg/dL POC Glucose (mg/dL) 107 H 106 H (75-99) mg/dL 05/15/17 Range/Units 11:42 Sodium (137-145) mmol/L Carbon Dioxide (22-30) mmol/L Creatinine (0.52-1.04) mg/dL Glucose (74-99) mg/dL POC Glucose (mg/dL) 134 H (75-99) mg/dL Assessment and Plan (1) Altered mental status Status: Acute (2) TIA (transient ischemic attack) Status: Acute (3) Urinary tract infection Status: Acute (4) Brain mass Status: Chronic Plan: patient does appear to have suffered a TIA with altered mental status. She does have a complex medical history involving TIA focal seizures altered mental status brain mass and urinary tract infection. At this time the patient's TIA symptoms have resolved to baseline. Patient is making significant improvement in cognition. Patient also reports that she is returned to baseline. Current medications include Keppra 500 mg twice a day, Lipitor 10 mg by mouth daily at bedtime which will be maintained outpatient. Patient will follow up with neuro oncologist at [facility] next week. Status: Patient can be cleared for discharge from a neurological standpoint. Patient will follow with neuro oncologist at [facility] next week. Patient may also be seen in our office within 10-14 days as well as needed. Continue Keppra as noted above outpatient. Please contact our office with any further questions. I discussed the patient's pertinent medical information with Dr. Longo. He agrees with the plan of care as implemented.
== END 2017-05-15 14:52 | disposition home health service (06) | DRG 69 ==
LOC: EC 09:21 → 6SEL 15:23
PROVIDERS: ADMIT Hospitalist; ATTEND Hospitalist
DX: G45.9 Transient cerebral ischemic attack, unspecified (principal); G40.89 Other seizures; N39.0 Urinary tract infection, site not specified; E11.9 Type 2 diabetes mellitus without complications; I10 Essential (primary) hypertension; K21.9 Gastro-esophageal reflux disease without esophagitis; E78.5 Hyperlipidemia, unspecified; Z96.641 Presence of right artificial hip joint; N32.81 Overactive bladder; R26.81 Unsteadiness on feet; F41.9 Anxiety disorder, unspecified; F31.9 Bipolar disorder, unspecified; R29.702 NIHSS score 2; Z86.73 Personal history of transient ischemic attack (TIA), and cerebral infarction without residual deficits; Z85.3 Personal history of malignant neoplasm of breast; Z90.710 Acquired absence of both cervix and uterus; Z87.891 Personal history of nicotine dependence; Z82.0 Family history of epilepsy and other diseases of the nervous system; Z82.49 Family history of ischemic heart disease and other diseases of the circulatory system; Z86.011 Personal history of benign neoplasm of the brain; Z79.899 Other long term (current) drug therapy; Z79.811 Long term (current) use of aromatase inhibitors; Z79.84 Long term (current) use of oral hypoglycemic drugs; Z88.2 Allergy status to sulfonamides; Z88.8 Allergy status to other drugs, medicaments and biological substances; Z91.012 Allergy to eggs; Z90.11 Acquired absence of right breast and nipple
CPT/HCPCS: 36415; 70450; 71020; 80048; 80053; 80061; 80306; 81001; 82140; 82550; 82553; 83036; 84484; 85025; 85610; 85730; 93005; 93880; 95819; 96360; 96361; 99285

== ENCOUNTER → 2017-06-16 | Outpatient (CLI) | payer MEDICARE, BC | END | disposition home or self-care (01) | LOC: LABWHC1 07:34 | PROVIDERS: ATTEND Psychiatry & Neurology Psychiatry | DX: E87.1 Hypo-osmolality and hyponatremia (principal) | CPT/HCPCS: 36415; 80051 ==

== ENCOUNTER 2017-07-21 19:36 | Inpatient (IN) | payer MEDICARE, BC ==
[2017-07-21] MEDS ORDERED: RX INFO: IV CONTRAST WAS GIVEN 1 EACH MISC MISCELLANE PRN (19:49)
--- NOTE | 2017-07-21 19:58 | ED ---
Neuro HPI - General Chief Complaint: Neuro Symptoms/Deficit Stated Complaint: altered Time Seen by Provider: 07/21/17 19:44 Source: patient, family, RN notes reviewed, old records reviewed Mode of arrival: wheelchair Limitations: altered mental status - History of Present Illness Is the patient presenting with stroke symptoms?: Yes Initial Comments: This is a 72-year-old female history of TIA/CVA in the past also history of bipolar disorder history of hyponatremia a UTI breast cancer type 2 diabetes and hypokalemia and hypomagnesemia in the past with sudden onset about one hour ago of garbled speech confusion. She did not know what day it is what time it was she was asked to give the phone to her she did have polyps commands she was talking to a daughter who was on the phone earlier but no one was on the phone. No reports of focal deficits however no nausea vomiting fevers chills sweats or other symptoms. - Related Data Home Medications: Home Medications Medication Instructions Recorded Confirmed Atorvastatin Calcium [Lipitor] 10 mg PO HS 10/21/16 07/21/17 Anastrozole [Arimidex] 1 mg PO DAILY 12/22/16 07/21/17 metFORMIN HCL [Glucophage] 1,000 mg PO QAM 12/22/16 07/21/17 metFORMIN HCL [Glucophage] 500 mg PO W/SUPPER 05/13/17 07/21/17 Meclizine [Antivert] 12.5 mg PO BID PRN 07/21/17 07/21/17 Tolterodine Tartrate [Detrol LA] 4 mg PO DAILY 07/21/17 07/21/17 busPIRone HCl [Buspar] 5 mg PO BID 07/21/17 07/21/17 risperiDONE [RisperDAL] 0.5 mg PO BID 07/21/17 07/21/17 risperiDONE [RisperDAL] 1.5 mg PO HS 07/21/17 07/21/17 Previous Rx's Medication Instructions Recorded Carvedilol [Coreg] 12.5 mg PO BID 30 Days tablet 04/19/16 Melatonin 3 mg PO HS tablet 10/24/16 levETIRAcetam [Keppra] 500 mg PO Q12HR #60 tab 05/15/17 Allergies/Adverse Reactions: Allergies Allergy/AdvReac Type Severity Reaction Status Date / Time Sulfa (Sulfonamide Allergy Unknown Unknown Verified 07/21/17 20:08 Antibiotics) egg AdvReac Diarrhea Verified 07/21/17 20:08 solifenacin [From Vesicare] AdvReac Confusion/s Verified 07/21/17 20:08 haking Review of Systems ROS Statement: Those systems with pertinent positive or pertinent negative responses have been documented in the HPI. ROS Other: All systems not noted in ROS Statement are negative. General Exam - General Exam Comments Initial Comments: this a well-developed well-nourished awake alert but confused female Limitations: altered mental status General appearance: alert, anxious Head exam: Present: atraumatic, normocephalic, normal inspection Eye exam: Present: normal appearance, PERRL, EOMI. Absent: scleral icterus, conjunctival injection, periorbital swelling ENT exam: Present: normal exam, mucous membranes moist Neck exam: Present: normal inspection. Absent: tenderness, meningismus, lymphadenopathy Respiratory exam: Present: normal lung sounds bilaterally. Absent: respiratory distress, wheezes, rales, rhonchi, stridor Cardiovascular Exam: Present: regular rate, normal rhythm, normal heart sounds. Absent: systolic murmur, diastolic murmur, rubs, gallop, clicks GI/Abdominal exam: Present: soft, normal bowel sounds. Absent: distended, tenderness, guarding, rebound, rigid Extremities exam: Present: normal inspection, full ROM, normal capillary refill. Absent: tenderness, pedal edema, joint swelling, calf tenderness Back exam: Present: normal inspection Neurological exam: Present: alert, altered, CN II-XII intact. Absent: motor sensory deficit Psychiatric exam: Present: anxious Skin exam: Present: warm, dry, intact, normal color. Absent: rash Stroke MDM - Lab Data Result diagrams: 07/21/17 19:58 07/21/17 19:58 Lab Results 07/21/17 07/21/17 07/21/17 Range/Units 19:46 19:58 19:58 WBC 6.0 (3.8-10.6) k/uL RBC 4.16 (3.80-5.40) m/uL Hgb 12.5 (11.4-16.0) gm/dL Hct 36.9 (34.0-46.0) % MCV 88.6 (80.0-100.0) fL MCH 29.9 (25.0-35.0) pg MCHC 33.8 (31.0-37.0) g/dL RDW 12.6 (11.5-15.5) % Plt Count 202 (150-450) k/uL Neutrophils % 55 % Lymphocytes % 27 % Monocytes % 10 % Eosinophils % 4 % Basophils % 1 % Neutrophils # 3.3 (1.3-7.7) k/uL Lymphocytes # 1.6 (1.0-4.8) k/uL Monocytes # 0.6 (0-1.0) k/uL Eosinophils # 0.2 (0-0.7) k/uL Basophils # 0.0 (0-0.2) k/uL PT (9.0-12.0) sec INR (<1.2) APTT (22.0-30.0) sec Sodium (137-145) mmol/L Potassium (3.5-5.1) mmol/L Chloride (98-107) mmol/L Carbon Dioxide (22-30) mmol/L Anion Gap mmol/L BUN (7-17) mg/dL Creatinine (0.52-1.04) mg/dL Est GFR (MDRD) Af Amer (>60 ml/min/1.73 sqM) Est GFR (MDRD) Non-Af (>60 ml/min/1.73 sqM) Glucose (74-99) mg/dL POC Glucose (mg/dL) 183 H (75-99) mg/dL POC Glu Threshing Department Supervisor ID Shobha De La Rosa Calcium (8.4-10.2) mg/dL Total Bilirubin (0.2-1.3) mg/dL AST (14-36) U/L ALT (9-52) U/L Alkaline Phosphatase (38-126) U/L Total Creatine Kinase 60 (30-135) U/L CK-MB (CK-2) 0.8 (0.0-2.4) ng/mL CK-MB (CK-2) Rel Index 1.3 Troponin I <0.012 (0.000-0.034) ng/mL Total Protein (6.3-8.2) g/dL Albumin (3.5-5.0) g/dL Urine Color Urine Appearance (Clear) Urine pH (5.0-8.0) Ur Specific [place] (1.001-1.035) Urine Protein (Negative) Urine Glucose (UA) (Negative) Urine Ketones (Negative) Urine Blood (Negative) Urine Nitrite (Negative) Urine Bilirubin (Negative) Urine Urobilinogen (<2.0) mg/dL Ur Leukocyte Esterase (Negative) Urine RBC (0-5) /hpf Urine WBC (0-5) /hpf Urine WBC Clumps (None) /hpf Ur Squamous Epith Cells (0-4) /hpf Urine Bacteria (None) /hpf Urine Yeast (Budding) (None) /hpf Urine Opiates Screen (NotDetected) Ur Oxycodone Screen (NotDetected) Urine Methadone Screen (NotDetected) Ur Propoxyphene Screen (NotDetected) Ur Barbiturates Screen (NotDetected) U Tricyclic Antidepress (NotDetected) Ur Phencyclidine Scrn (NotDetected) Ur Amphetamines Screen (NotDetected) U Methamphetamines Scrn (NotDetected) U Benzodiazepines Scrn (NotDetected) Urine Cocaine Screen (NotDetected) U Marijuana (THC) Screen (NotDetected) 07/21/17 07/21/17 07/21/17 Range/Units 19:58 19:58 21:03 WBC (3.8-10.6) k/uL RBC (3.80-5.40) m/uL Hgb (11.4-16.0) gm/dL Hct (34.0-46.0) % MCV (80.0-100.0) fL MCH (25.0-35.0) pg MCHC (31.0-37.0) g/dL RDW (11.5-15.5) % Plt Count (150-450) k/uL Neutrophils % % Lymphocytes % % Monocytes % % Eosinophils % % Basophils % % Neutrophils # (1.3-7.7) k/uL Lymphocytes # (1.0-4.8) k/uL Monocytes # (0-1.0) k/uL Eosinophils # (0-0.7) k/uL Basophils # (0-0.2) k/uL PT 9.6 (9.0-12.0) sec INR 0.9 (<1.2) APTT 22.1 (22.0-30.0) sec Sodium 139 (137-145) mmol/L Potassium 3.7 (3.5-5.1) mmol/L Chloride 106 (98-107) mmol/L Carbon Dioxide 24 (22-30) mmol/L Anion Gap 9 mmol/L BUN 10 (7-17) mg/dL Creatinine 0.61 (0.52-1.04) mg/dL Est GFR (MDRD) Af Amer >60 (>60 ml/min/1.73 sqM) Est GFR (MDRD) Non-Af >60 (>60 ml/min/1.73 sqM) Glucose 189 H (74-99) mg/dL POC Glucose (mg/dL) (75-99) mg/dL POC Glu Threshing Department Supervisor ID Calcium 9.5 (8.4-10.2) mg/dL Total Bilirubin 0.1 L (0.2-1.3) mg/dL AST 16 (14-36) U/L ALT 24 (9-52) U/L Alkaline Phosphatase 121 (38-126) U/L Total Creatine Kinase (30-135) U/L CK-MB (CK-2) (0.0-2.4) ng/mL CK-MB (CK-2) Rel Index Troponin I (0.000-0.034) ng/mL Total Protein 6.7 (6.3-8.2) g/dL Albumin 3.9 (3.5-5.0) g/dL Urine Color Light Yellow Urine Appearance Cloudy H (Clear) Urine pH 6.5 (5.0-8.0) Ur Specific [place] 1.019 (1.001-1.035) Urine Protein Negative (Negative) Urine Glucose (UA) Negative (Negative) Urine Ketones Negative (Negative) Urine Blood Trace H (Negative) Urine Nitrite Positive H (Negative) Urine Bilirubin Negative (Negative) Urine Urobilinogen <2.0 (<2.0) mg/dL Ur Leukocyte Esterase Large H (Negative) Urine RBC 8 H (0-5) /hpf Urine WBC 108 H (0-5) /hpf Urine WBC Clumps Few H (None) /hpf Ur Squamous Epith Cells <1 (0-4) /hpf Urine Bacteria Many H (None) /hpf Urine Yeast (Budding) Few H (None) /hpf Urine Opiates Screen Not Detected (NotDetected) Ur Oxycodone Screen Not Detected (NotDetected) Urine Methadone Screen Not Detected (NotDetected) Ur Propoxyphene Screen Not Detected (NotDetected) Ur Barbiturates Screen Not Detected (NotDetected) U Tricyclic Antidepress Not Detected (NotDetected) Ur Phencyclidine Scrn Not Detected (NotDetected) Ur Amphetamines Screen Not Detected (NotDetected) U Methamphetamines Scrn Not Detected (NotDetected) U Benzodiazepines Scrn Not Detected (NotDetected) Urine Cocaine Screen Not Detected (NotDetected) U Marijuana (THC) Screen Not Detected (NotDetected) - NIH Stroke Scale 1a. Level of Consciousness: (0) alert 1b. LOC Questions: (2) answers no questions correctly 1c. LOC Commands: (0) performs tasks correctly 2. Best Gaze: (0) normal 3. Visual: (0) no visual loss 4. Facial Palsy: (0) normal symmetrical movement 5a. Motor Arm Left: (0) no drift 5b. Motor Arm Right: (0) no drift 6a. Motor Leg Left: (0) no drift 6b. Motor Leg Right: (0) no drift 7. Limb Ataxia: (0) absent 8. Sensory: (0) normal 9. Best Language: (1) mild/moderate aphasia 10. Dysarthria: (0) normal 11. Extinction/Inattention: (0) no abnormality - Core Measures Door to CXR Read: patient is not a candidate for TPA or intervention at this time she will be - EKG Data -: EKG Interpreted by Me EKG shows normal: sinus rhythm (sinus rhythm normal sinus rate of 72. Interval 170 QRS 76 QT since QTC of 396/433 artifact is present no acute ST-T wave changes.) Past Medical History Past Medical History: Cancer, CVA/TIA, Diabetes Mellitus, GERD/Reflux, Hyperlipidemia, Hypertension, Seizure Disorder Additional Past Medical History / Comment(s): Intracranial bleed July 2015, overactive bladder, multi UTI- ecoli, Breast cancer,meningoma lt side of brain - had gamma knife procedure march 11 2017, RT bx,lumpectomy, lymph node removal." had seizure like symptoms on several ocassions but never got a clear answer if it was". History of Any Multi-Drug Resistant Organisms: None Reported Past Surgical History: Hysterectomy Additional Past Surgical History / Comment(s): Total hysterectomy, right hip arthroplasty, laser surgery of the right eye of her bleeding, bladder suspension , right elbow metal plate , gamma knife procedure for meningoma lt side of brain 03-11-17 Past Anesthesia/Blood Transfusion Reactions: No Reported Reaction Past Psychological History: Anxiety, Bipolar, Depression Smoking Status: Former smoker Past Alcohol Use History: None Reported Past Drug Use History: None Reported - Past Family History Father Family Medical History: No Reported History Additional Family Medical History / Comment(s): Father is alive in his 80s and is a smoker. Patient does not know his medical history. Mother Family Medical History: No Reported History Additional Family Medical History / Comment(s): Mother at age 79 from Alzheimer's dementia. Sister(s) Additional Family Medical History / Comment(s): She has one sister that is from heart failure. Patient does not have any brothers. Patient has 2 daughters that are 45 and 42 years of age with no major medical problems. Course Vital Signs 07/21/17 07/21/17 19:36 20:16 Temperature 98.5 F Pulse Rate 78 70 Respiratory 18 20 Rate Blood Pressure 225/94 194/85 O2 Sat by Pulse 98 98 Oximetry - Reevaluation(s) Reevaluation #1: 07/21/17 19:59 EKG today shows no change from one submitted from 05/13/17 Reevaluation #2: 07/21/17 20:01 further information patient does have a history of possible seizure disorder history of Gamma knife resection of a meningioma in February of this year patient apparently has been on Keppra in the past. Reevaluation #3: 07/21/17 20:22 reevaluation the patient after return from CAT scan shows no change in her mentation no new deficits. Patient is so confused as to date and time Reevaluation #4: 07/21/17 21:44 Patient is more awake and alert and has improved. Critical Care Time Critical Care Time: Yes Critical Care Time: 35 minutes of critical care time which includes initial presentation with history physical labs x-rays reevaluation patient multiple occasions discussion with the neurologist discussed with patient family admission orders discussed with the admitting physician documentation of the above. Review of old charting. Disposition Clinical Impression: Transient ischemic attack (TIA), Urinary tract infection Disposition: ADMITTED IP TO THIS HOSP Condition: Stable Referrals: Mani Hunt DO [Primary Care Provider] - 1-2 days
[2017-07-21 19:59] LABS: Glucose,Whole Blood 183 mg/dL (75-99)
[2017-07-21] MEDS ORDERED: LABETALOL 5 MG/ML VIAL MDV IVP STA (20:03)
[2017-07-21 20:08] LABS: Basophils % (A) 1 %; CH 30.4; CHCM 34.4; Eosinophils # (A) 0.2 k/uL (0-0.7); Eosinophils % (A) 4 %; HCT 36.9 % (34.0-46.0); HDW 2.72; HGB 12.5 gm/dL (11.4-16.0); Luc # (Auto) 0.17; Luc % (Auto) 3; Lymphocytes # (A) 1.6 k/uL (1.0-4.8); Lymphocytes % (A) 27 %; MCH 29.9 pg (25.0-35.0); MCHC 33.8 g/dL (31.0-37.0); MCV 88.6 fL (80.0-100.0); Mean Platelet Volume 7.6; Monocytes # (A) 0.6 k/uL (0-1.0); Monocytes % (A) 10 %; Neutrophils # (A) 3.3 k/uL (1.3-7.7); Neutrophils % (A) 55 %; RBC 4.16 m/uL (3.80-5.40); RDW 12.6 % (11.5-15.5); WBC (Perox) 5.73
[2017-07-21 20:16] LABS: INR 0.9 (<1.2); Partial Thromboplastin Time 22.1 sec (22.0-30.0); Prothrombin Time 9.6 sec (9.0-12.0)
--- NOTE | 2017-07-21 20:21 | CT ---
EXAMINATION TYPE: CT brain wo con for TPA DATE OF EXAM: 07/21/2017 COMPARISON: 05/13/2017 HISTORY: Slurred speech. CT DLP: 1041.50 mGycm Automated exposure control for dose reduction was used. FINDINGS: There is cerebral cortical atrophy. There is no mass effect nor midline shift. There is no sign of in tracranial hemorrhage. The calvarium is intact. IMPRESSION: CEREBRAL ATROPHY. NO ACUTE INTRACRANIAL ABNORMALITY. NO CHANGE COMPARED TO OLD EXAM.
[2017-07-21 20:22] LABS: ALT 24 U/L (9-52); AST 16 U/L (14-36); Alkaline Phosphatase 121 U/L (38-126); Anion Gap 9 mmol/L; Blood Urea Nitrogen 10 mg/dL (7-17); Calcium 9.5 mg/dL (8.4-10.2); Carbon Dioxide 24 mmol/L (22-30); Chloride 106 mmol/L (98-107); Glucose 189 mg/dL (74-99); Non-African American GFR(MDRD) >60 (>60 ml/min/1.73 sqM); Potassium 3.7 mmol/L (3.5-5.1); Sodium 139 mmol/L (137-145); Total Bilirubin 0.1 mg/dL (0.2-1.3); Total Protein 6.7 g/dL (6.3-8.2)
[2017-07-21 20:30] LABS: Creatine Kinase 60 U/L (30-135)
--- NOTE | 2017-07-21 20:43 | CT ---
EXAMINATION TYPE: CT angio head neck DATE OF EXAM: 07/21/2017 HISTORY: Slurred speech. COMPARISON: NONE CT DLP: 304.80 mGycm. Automated Exposure Control for Dose Reduction was Utilized. TECHNIQUE: CTA scan of the neck is performed with IV Contrast, patient injected with 65 mL of Omnipa que 350, axial images are obtained, coronal and sagittal reformatted images are reviewed. Three-D rec onstructed images are created on an independent workstation and reviewed. FINDINGS: There is normal branching pattern of the great vessels on the aortic arch. There is bilateral patency of the vertebral arteries. There is bilateral patency of the common internal and external carotid ar teries. There is no evidence of carotid dissection. The carotid arteries are widely patent. There is patency of the vertebrobasilar artery system. There is arterial flow in the anterior middle and posterior cerebral arteries. There is no evidence of aneurysm or neovascularity. There is normal contrast opacification of the venous sinuses. CONCLUSION: Normal CT angiogram of the neck. Normal CT angiogram of the brain.
[2017-07-21 20:44] LABS: Creatine Kinase MB 0.8 ng/mL (0.0-2.4); Troponin I <0.012 ng/mL (0.000-0.034)
--- NOTE | 2017-07-21 20:45 | XR ---
EXAMINATION TYPE: XR chest 2V DATE OF EXAM: 07/21/2017 COMPARISON: 05/13/2017 HISTORY: Altered mental status TECHNIQUE: Frontal and lateral views of the chest are obtained. FINDINGS: There is no heart failure nor confluent pneumonic infiltrate. Thoracic aorta is atheromato us. There are old multiple right-sided healed rib fractures. There is no pleural effusion. There is s purring in the thoracic spine. There are chest leads. There is some spurring at the lateral left clav icle. IMPRESSION: No active cardiopulmonary disease. No change.
[2017-07-21 21:22] LABS: Appearance,Urine Cloudy (Clear); Bacteria,Urine Many /hpf; Bilirubin,Urine Negative (Negative); Glucose,Urine (UA) Negative (Negative); Ketones,Urine Negative (Negative); Leukocyte Esterase,Urine Large (Negative); Nitrite,Urine Positive (Negative); PH, Urine 6.5 (5.0-8.0); Particle Count 5240; Protein,Urine Negative (Negative); RBC,Urine 8 /hpf (0-5); Specific Gravity,Urine 1.019 (1.001-1.035); Squamous Epithelial Cell,Urine <1 /hpf (0-4); UA Billing (MACRO vs. MICRO) MICRO; Urobilinogen,Urine <2.0 mg/dL (<2.0); WBC,Urine 108 /hpf (0-5)
[2017-07-21] MEDS ORDERED: ASPIRIN 325 MG TAB PO STA (21:52)
[2017-07-21] MEDS ORDERED: MECLIZINE 12.5 MG TAB PO PRN (21:55)
[2017-07-21] MEDS ORDERED: cefTRIAXone IN SWFI 1,000 MG/10 ML SYRINGE IVP STA (22:02)
[2017-07-21] MEDS: SODIUM CHLORIDE 0.9% 1,000 ML IV SCH (22:54)
[2017-07-22 03:28] LABS: Cholesterol 180 mg/dL (<200); HDL Cholesterol 67 mg/dL (40-60)
[2017-07-22 06:00] LABS: Glucose,Whole Blood 147 mg/dL (75-99)
[2017-07-22] MEDS: CARVEDILOL 12.5 MG TAB PO SCH ×2 (06:34→16:24)
[2017-07-22] MEDS: INSULIN LISPRO (humaLOG) 300 UNIT/3 ML VIAL SQ SCH ×4 (06:34→21:03)
[2017-07-22] MEDS: SODIUM CHLORIDE 0.9% 1,000 ML IV SCH ×2 (08:33→16:58)
[2017-07-22] MEDS: ENOXAPARIN 40 MG/0.4 ML SYRINGE SQ SCH ×2 (08:39→08:40)
[2017-07-22] MEDS: busPIRone HCl 5 MG TAB PO SCH ×2 (08:40→21:05)
[2017-07-22] MEDS: CLOPIDOGREL 75 MG TAB PO SCH (08:40)
[2017-07-22] MEDS: ANASTROZOLE 1 MG TAB PO SCH (08:40)
[2017-07-22] MEDS: ASPIRIN 81 MG PO SCH (08:40)
[2017-07-22] MEDS: OXYBUTYNIN XL 5 MG TAB.ER.24 PO SCH (08:40)
[2017-07-22] MEDS: metFORMIN 500 MG TAB PO SCH (08:40)
[2017-07-22] MEDS: levETIRAcetam 500 MG TAB PO SCH ×2 (08:40→21:04)
[2017-07-22] MEDS: risperiDONE 1 MG TAB PO SCH (08:41)
--- NOTE | 2017-07-22 08:46 | US ---
EXAMINATION TYPE: US carotid duplex BILAT DATE OF EXAM: 07/22/2017 COMPARISON: US 2016 CLINICAL HISTORY: 72-year-old female Stenosis. Slurred speech, light headedness, confusion TECHNIQUE: Carotid duplex ultrasound examination. Direct Doppler criteria was utilized. FINDINGS: Daigle scale images show only minimal atherosclerotic changes at both bifurcations. Incidentally, there is a peripherally calcified solid nodule at the left lower pole measuring 1.1 x 0 .9 x 1.1 cm. EXAM MEASUREMENTS: RIGHT: Peak Systolic Velocity (PSV) cm/sec ----- Right CCA: 59.8 ----- Right ICA: 94.2 ----- Right ECA: 60.6 ICA/CCA ratio: 1.6 RIGHT: End Diastole cm/sec ----- Right CCA: 14.5 ----- Right ICA: 20.5 ----- Right ECA: 10.1 LEFT: Peak Systolic Velocity (PSV) cm/sec ----- Left CCA: 71.2 ----- Left ICA: 84.2 ----- Left ECA: 52.7 ICA/CCA ratio: 1.2 LEFT: End Diastole cm/sec ----- Left CCA: 19.7 ----- Left ICA: 22.8 ----- Left ECA: 10.8 VERTEBRALS (direction of flow): Right Vertebral: Antegrade Left Vertebral: Antegrade Rhythm: Normal IMPRESSION: 1. No hemodynamically significant stenosis appreciated in either internal carotid artery. 2. Incidental 1.1 cm left thyroid nodule. The decision to biopsy should be made on a clinical basis. Criteria for Assigning % of Stenosis / Diameter reduction (Estimation based on the indirect measurements of the internal carotid artery velocities (ICA PSV). 1. Normal (no stenosis)=ICA PSV < 125 cm/s: ratio < 2.0: ICA EDV<40 cm/s. 2. Less than 50% stenosis=ICA PSV < 125 cm/s: ratio < 2.0: ICA EDV<40 cm/s. 3. 50 to 69% stenosis=ICA PSV of 125 to 230 cm/s: ration 2.0 ? 4.0: ICA EDV 40-100 cm/s. 4. Greater than 70% stenosis to near occlusion= ICA PSV > 230 cm/s: ratio > 4.0: ICA EDV > 100 cm/s. 5. Near occlusion= ICA PSV velocities may be low or undetectable: variable ratio and ICA EDV. 6. Total occlusion=unable to detect flow.
[2017-07-22 11:26] VITALS: BMI 28.2
[2017-07-22 11:43] LABS: Glucose,Whole Blood 108 mg/dL (75-99)
[2017-07-22] MEDS ORDERED: ASPIRIN 325 MG TAB PO SCH (12:00)
--- NOTE | 2017-07-22 15:04 | HP ---
HISTORY AND PHYSICAL DATE OF ADMISSION: 07/21/17. DATE OF SERVICE: 07/22/17. PRESENTING COMPLAINT: Fall. HISTORY OF PRESENTING COMPLAINT: This is a very pleasant 72-year-old patient of Dr. Hunt. The patient's chronic stable medical conditions include bipolar disorder, seizure disorder, hypertension, GERD, diabetes mellitus type 2 and history of meningioma with gamma knife resection. The patient was standing at the kitchen sink doing dishes when she suddenly lost balance, nearly passed out maybe for a few seconds. Barry weak on the right side. Some vision affected. No headache. Speech is slightly slow. picked her up. She came back around in a few minutes time back to usual self. REVIEW OF SYSTEMS: Constitutional tired. HEENT: None. RESPIRATORY: None. CARDIOVASCULAR: None. GENITOURINARY: None. Musculoskeletal none. Dermatological none, hematologic and lymphatic none. Psychiatry: Bipolar controlled. Neurological as above. PAST HISTORY: Of stroke, diabetes mellitus type 2, GERD, hyperlipidemia, hypertension, seizure disorder, intracranial in July of 2015, overactive bladder, multiple UTIs, breast cancer, meningioma on the left side of the brain and gamma knife procedure, right breast lumpectomy. PAST SURGICAL HISTORY: Total hysterectomy, right hip arthroplasty, laser surgery right eye for bleeding, bladder suspension, right elbow metal plate, gamma knife procedure for meningioma in February of 2017. PAST PSYCH HISTORY: Past psych history of bipolar disorder. SOCIAL HISTORY: . The patient smoked for only 6 years. Stopped in 1979. Denies use of any recreational drugs. The patient does use a cane for ambulation since a intracranial bleed in 2014. FAMILY HISTORY: Reviewed, noncontributory to presentation. HOME MEDICATIONS: 1. Risperdal 0.5 mg in the morning, 1.5 mg at night. 2. Glucophage 500 mg with supper 1000 mg in the morning. 3. Keppra 500 mg p.o. q.12. 4. Buspirone 5 mg p.o. b.i.d. 5. Detrol LA 4 mg p.o. daily. 6. Melatonin 3 mg q.h.s. 7. Antivert 12.5 p.o. b.i.d. p.r.n. 8. Coreg 12.5 p.o. b.i.d. 9. Lipitor 10 mg p.o. q.h.s. 10.Arimidex 1 mg p.o. daily. ALLERGIES: SULFUR, EGG, VESICARE. PHYSICAL EXAMINATION: Temperature 97.6, pulse 73, respirations 16, blood pressure 150/77, pulse ox 99% on room air. GENERAL APPEARANCE: Average built, sitting up not in distress. Eyes: Pupils equal. Conjunctivae normal. HEENT: Oral cavity normal. Neck JVD not raised. Mass not palpable. Respiratory effort lungs are clear. Cardiovascular first and second sounds normal. No edema. ABDOMEN: Soft, nontender. Liver and spleen not palpable. Lymphatics: No lymph nodes palpable in neck or axillae. Psychiatry alert and oriented times three. Mood and affect normal. Neurological pupils equal. Cranial nerves grossly intact. Power and sensation grossly intact. Power in the right arm is 4/5 which according to the patient is her baseline. INVESTIGATIONS: White count 6, hemoglobin 12.5, potassium 3.7, HGB A1c 6.5. Troponin negative. CT scan of the brain shows some cerebral atrophy. CT angio of the brain of the neck negative. Carotid Doppler nil critical. ASSESSMENT: 1. Acute transient ischemic attack in the region of the left middle cerebral artery with right-sided weakness that resolved within minutes. 2. Diabetes mellitus type 2 on oral hypoglycemic. 3. Gastroesophageal reflux disease. 4. Hyperlipidemia. 5. Essential hypertension. 6. Chronic seizure disorder. 7. History of intracranial bleed in July 2015. 8. Chronic overactive bladder. 9. Bipolar disorder. PLAN: The patient is continued on aspirin. We will increase the dose of Lipitor. Other home medications to be resumed. Accu-Cheks will be followed and hoping patient can be discharged in the next [address] Hunt. MMJAEL / HEBER: [id number] /
[2017-07-22] MEDS: ATORVASTATIN 40 MG TAB PO SCH (16:24)
[2017-07-22 16:58] LABS: Glucose,Whole Blood 104 mg/dL (75-99)
[2017-07-22] MEDS ORDERED: metFORMIN 500 MG TAB PO SCH (17:30)
--- NOTE | 2017-07-22 19:49 | P.CNNES ---
History of Present Illness Consult date: 07/22/17 History of Present Illness: the patient is a 72-year-old right-handed white female with history of seizure disorder who presents to the hospital with episode of some balance and fall. He had some transient right-sided weakness. That she was putting dishes away in stepping on a three-foot step ladder and lost her balance and fell. She denied hitting her head or her back. She denies any headache or back pain. She has a history of seizure disorder and she is not clear about when her last seizure was but states that she has not had a seizure for quite some time. She has been off of her seizure medications for some time. She has been on Keppra in the past. Apparently the patient had some garbled speech at home. She has a history of stroke in the past. He of meningioma resection cerebral cavernoma. She did present with quite some confusion on admission. She still is a poor historian but at the time of admission to the ER she was more confused. Unclear whether she passed out when she fell in the kitchen but think she may have passed out briefly. In the emergency room she had an Angio- Seal CT of the head and neck which was normal. She has had a carotid ultrasound which did not show any significant stenosis. She had a CT of the brain which showed some atrophy. Review of Systems Eyes: denies blurred vision, denies pain Cardiovascular: Denies chest pain, Denies shortness of breath Respiratory: Denies cough Musculoskeletal: Denies myalgias Neurological: Denies numbness, Denies weakness Psychiatric: Denies anxiety, Denies depression Past Medical History Past Medical History: Cancer, CVA/TIA, Diabetes Mellitus, GERD/Reflux, Hyperlipidemia, Hypertension, Seizure Disorder Additional Past Medical History / Comment(s): Intracranial bleed July 2015, overactive bladder, multi UTI- ecoli, Breast cancer,meningoma lt side of brain - had gamma knife procedure march 11 2017, RT bx,lumpectomy, lymph node removal." had seizure like symptoms on several ocassions but never got a clear answer if it was". History of Any Multi-Drug Resistant Organisms: None Reported Past Surgical History: Hysterectomy Additional Past Surgical History / Comment(s): Total hysterectomy, right hip arthroplasty, laser surgery of the right eye of her bleeding, bladder suspension , right elbow metal plate , gamma knife procedure for meningoma lt side of brain 03-11-17 Past Anesthesia/Blood Transfusion Reactions: No Reported Reaction Past Psychological History: Anxiety, Bipolar, Depression Additional Psychological History / Comment(s): 03/19/2016- treated for psychosis , bipolar depression, paranoid symptoms and hearing voices. 05-13-17 pt denies any current problem with depression or thoughts of wanting to harm self. pt lives with her spouse in ranch style home that has 2 steps to enter. hs a pet cat. no outside services recieved-daughter heips out when needed. no medical equipment except for cane. Smoking Status: Former smoker Past Alcohol Use History: None Reported Additional Past Alcohol Use History / Comment(s): Patient was a smoker for approx 6 years and quit in 1979. She denies any medical marijuana, marijuana, street drug or alcohol use. She uses a cane for ambulation since the intracranial bleed in July 2015. Past Drug Use History: None Reported - Past Family History Father Family Medical History: No Reported History Additional Family Medical History / Comment(s): Father is alive in his 80s and is a smoker. Patient does not know his medical history. Mother Family Medical History: No Reported History Additional Family Medical History / Comment(s): Mother at age 79 from Alzheimer's dementia. Sister(s) Additional Family Medical History / Comment(s): She has one sister that is from heart failure. Patient does not have any brothers. Patient has 2 daughters that are 45 and 42 years of age with no major medical problems. Medications and Allergies Home Medications Medication Instructions Recorded Confirmed Type Carvedilol [Coreg] 12.5 mg PO BID 30 Days tablet 04/19/16 07/21/17 Rx Atorvastatin Calcium [Lipitor] 10 mg PO HS 10/21/16 07/21/17 History Melatonin 3 mg PO HS tablet 10/24/16 07/21/17 Rx Anastrozole [Arimidex] 1 mg PO DAILY 12/22/16 07/21/17 History metFORMIN HCL [Glucophage] 1,000 mg PO QAM 12/22/16 07/21/17 History metFORMIN HCL [Glucophage] 500 mg PO W/SUPPER 05/13/17 07/21/17 History levETIRAcetam [Keppra] 500 mg PO Q12HR #60 tab 05/15/17 07/21/17 Rx Meclizine [Antivert] 12.5 mg PO BID PRN 07/21/17 07/21/17 History Tolterodine Tartrate [Detrol LA] 4 mg PO DAILY 07/21/17 07/21/17 History busPIRone HCl [Buspar] 5 mg PO BID 07/21/17 07/21/17 History risperiDONE [RisperDAL] 0.5 mg PO QAM 07/21/17 07/21/17 History risperiDONE [RisperDAL] 1.5 mg PO HS 07/21/17 07/21/17 History Allergies Allergy/AdvReac Type Severity Reaction Status Date / Time Sulfa (Sulfonamide Allergy Unknown Unknown Verified 07/21/17 20:08 Antibiotics) egg AdvReac Diarrhea Verified 07/21/17 20:08 solifenacin [From Vesicare] AdvReac Confusion/s Verified 07/21/17 20:08 haking Physical Examination - Vital Signs Vital Signs: Vital Signs Temp Pulse Pulse Resp BP BP Pulse Ox 07/22/17 16:42 97.8 F 82 16 156/89 98 07/22/17 12:20 97.6 F 73 16 150/77 99 07/22/17 08:58 99 07/22/17 08:43 97.8 F 72 16 142/74 97 07/22/17 06:30 97.7 F 70 18 152/62 98 07/22/17 03:35 97.0 F L 74 18 152/79 99 07/22/17 01:30 97.7 F 70 18 150/62 98 07/22/17 00:16 97.1 F L 77 18 161/77 99 07/21/17 23:30 70 155/67 07/21/17 22:37 97.1 F L 72 17 160/72 99 07/21/17 22:15 74 18 163/82 98 07/21/17 21:45 70 19 169/79 98 07/21/17 21:15 68 19 194/88 98 07/21/17 20:45 70 163/81 99 07/21/17 20:30 72 19 160/72 99 07/21/17 20:16 70 20 194/85 98 07/21/17 20:04 70 18 166/79 94 L 07/21/17 19:52 76 19 142/95 07/21/17 19:36 98.5 F 78 18 225/94 98 Intake and Output 07/22/17 07/22/17 07/22/17 06:59 14:59 22:59 Intake Total 600 222 Output Total 800 1500 Balance -800 -900 222 Intake: Oral 600 222 Output: Urine 800 1500 Other: Voiding Method Toilet Toilet Toilet # Voids 4 # Bowel Movements 1 Weight 77 kg 77 kg Patient Weight 07/23/17 06:59 Weight 77 kg - Constitutional General appearance: average body habitus - EENT EENT: PERRL, hearing intact, vision intact - Respiratory Respiratory: lungs clear - Cardiovascular Cardiovascular: regular rate - Integumentary Integumentary: normal - Neurologic mental status she was awake she was alert she was oriented to person and place there was no a aphasia or dysarthria Cranial nerve examination: EOMI, VFF, face symmetric, tongue midline Detailed motor examination: grossly full strength in all extremities, full strength in all major muscle groups Motor examination - right side: 5/5: biceps, triceps, wrist flexion, wrist extension, compliance examiner, hip flexors, knee extensors, dorsiflexion, toe extension (EHL) , plantarflexion Motor examination - left side: 5/5: biceps, triceps, wrist flexion, wrist extension, compliance examiner, hip flexors, knee extensors, dorsiflexion, toe extension (EHL) , plantarflexion Detailed sensory examination: intact - Psychiatric Psychiatric: cooperative Results - Laboratory Findings CBC and BMP: 07/21/17 19:58 07/21/17 19:58 Abnormal Lab Findings: Abnormal Labs 07/21/17 07/21/17 07/21/17 19:46 19:58 19:58 Glucose 189 H POC Glucose (mg/dL) 183 H Hemoglobin A1c Total Bilirubin 0.1 L HDL Cholesterol 67 H Urine Appearance Urine Blood Urine Nitrite Ur Leukocyte Esterase Urine RBC Urine WBC Urine WBC Clumps Urine Bacteria Urine Yeast (Budding) 07/21/17 07/21/17 07/22/17 20:07 21:03 05:59 Glucose POC Glucose (mg/dL) 147 H Hemoglobin A1c 6.5 H Total Bilirubin HDL Cholesterol Urine Appearance Cloudy H Urine Blood Trace H Urine Nitrite Positive H Ur Leukocyte Esterase Large H Urine RBC 8 H Urine WBC 108 H Urine WBC Clumps Few H Urine Bacteria Many H Urine Yeast (Budding) Few H 07/22/17 07/22/17 11:36 16:55 Glucose POC Glucose (mg/dL) 108 H 104 H Hemoglobin A1c Total Bilirubin HDL Cholesterol Urine Appearance Urine Blood Urine Nitrite Ur Leukocyte Esterase Urine RBC Urine WBC Urine WBC Clumps Urine Bacteria Urine Yeast (Budding) Assessment and Plan (1) TIA (transient ischemic attack) Current Visit: Yes Status: Acute SNOMED Code(s): 273430734 (2) History of seizures Current Visit: Yes Status: Chronic SNOMED Code(s): 585899805 (3) Altered mental status Current Visit: No Status: Acute SNOMED Code(s): 562574358 Plan: the patient is a 72-year-old woman with history of seizures and left parietal cavernoma and status post resection of left parietal meningioma. She is admitted to the hospital after apparently losing her balance and possibly passing out. She is admitted with altered mental status and possible stroke. She did have some temporary right-sided weakness and garbled speech. She has had a and she'll CT of the head and neck which was negative. She has had a carotid ultrasound which did not show any significant stenosis. She had a brain CT which showed atrophy. recommend EEG. recommend resuming patient on Keppra 500 twice a day She reports she has stopped driving.
[2017-07-22] MEDS ORDERED: ATORVASTATIN 10 MG TAB PO SCH (21:00)
[2017-07-22] MEDS ORDERED: MELATONIN 3 MG TABLET PO SCH (21:00)
[2017-07-22] MEDS ORDERED: risperiDONE 1 MG TAB PO SCH (21:00)
[2017-07-22 21:03] LABS: Glucose,Whole Blood 111 mg/dL (75-99)
[2017-07-23 00:32] VITALS: RESP 16
[2017-07-23 05:59] LABS: Glucose,Whole Blood 124 mg/dL (75-99)
[2017-07-23] MEDS: CARVEDILOL 12.5 MG TAB PO SCH (06:12)
[2017-07-23] MEDS: SODIUM CHLORIDE 0.9% 1,000 ML IV SCH (06:12)
[2017-07-23] MEDS: INSULIN LISPRO (humaLOG) 300 UNIT/3 ML VIAL SQ SCH ×2 (06:12→12:03)
[2017-07-23 06:39] LABS: Basophils % (A) 1 %; CH 29.1; CHCM 32.2; Eosinophils # (A) 0.2 k/uL (0-0.7); Eosinophils % (A) 3 %; HCT 35.5 % (34.0-46.0); HDW 2.53; HGB 11.8 gm/dL (11.4-16.0); Luc # (Auto) 0.16; Luc % (Auto) 3; Lymphocytes # (A) 1.2 k/uL (1.0-4.8); Lymphocytes % (A) 21 %; MCH 30.2 pg (25.0-35.0); MCHC 33.3 g/dL (31.0-37.0); MCV 90.8 fL (80.0-100.0); Mean Platelet Volume 7.1; Monocytes # (A) 0.4 k/uL (0-1.0); Monocytes % (A) 8 %; Neutrophils # (A) 3.8 k/uL (1.3-7.7); Neutrophils % (A) 66 %; RBC 3.91 m/uL (3.80-5.40); RDW 13.7 % (11.5-15.5); WBC 5.7 k/uL (3.8-10.6); WBC (Perox) 5.75
[2017-07-23 06:58] LABS: Anion Gap 9 mmol/L; Blood Urea Nitrogen 14 mg/dL (7-17); Calcium 9.1 mg/dL (8.4-10.2); Carbon Dioxide 19 mmol/L (22-30); Chloride 110 mmol/L (98-107); Glucose 113 mg/dL (74-99); Non-African American GFR(MDRD) >60 (>60 ml/min/1.73 sqM); Potassium 4.5 mmol/L (3.5-5.1); Sodium 138 mmol/L (137-145)
[2017-07-23] MEDS: ASPIRIN 81 MG PO SCH (08:30)
[2017-07-23] MEDS: CLOPIDOGREL 75 MG TAB PO SCH (08:30)
[2017-07-23] MEDS: OXYBUTYNIN XL 5 MG TAB.ER.24 PO SCH (08:30)
[2017-07-23] MEDS: risperiDONE 1 MG TAB PO SCH (08:30)
[2017-07-23] MEDS: metFORMIN 500 MG TAB PO SCH (08:30)
[2017-07-23] MEDS: levETIRAcetam 500 MG TAB PO SCH (08:30)
[2017-07-23] MEDS: ATORVASTATIN 40 MG TAB PO SCH (08:30)
[2017-07-23] MEDS: busPIRone HCl 5 MG TAB PO SCH (08:30)
[2017-07-23] MEDS: ANASTROZOLE 1 MG TAB PO SCH (08:31)
[2017-07-23 08:51] VITALS: PULSE 72; TEMP 97.6
[2017-07-23 11:24] LABS: Glucose,Whole Blood 213 mg/dL (75-99)
[2017-07-23] MEDS ORDERED: CIPROFLOXACIN HCL 250 MG TAB PO STA (11:27)
[2017-07-23 12:13] VITALS: BP 152/88
--- NOTE | 2017-07-23 20:08 | DS ---
DISCHARGE SUMMARY FINAL DIAGNOSES: 1. Acute transient ischemic attack in the region of left middle cerebral artery with right-sided weakness that resolved within minutes. 2. Diabetes mellitus type 2 on oral hypoglycemic. 3. Gastroesophageal reflux disease. 4. Hyperlipidemia. 5. Essential hypertension. 6. Chronic seizure disorder. 7. History of intracranial bleed in July 2015. 8. Chronic overactive bladder. 9. Bipolar disorder. 10.Acute urinary tract infection. HOSPITAL COURSE: This patient presented with right-sided weakness, some change in speech, fell down while standing, did not have any loss of consciousness, The patient did undergo a carotid Doppler, CT angio, CT scan of brain. All were unremarkable. EEG was pending. Seen by Dr. Frankel from Neurology, tchula to be discharged. EXAMINATION: Patient has mild right-sided right arm weakness. From before that, it is 4/5. LUNGS: Clear. CARDIOVASCULAR: First and second sounds normal. The patient did get a dose of ciprofloxacin 250 mg before leaving. HOME GO MEDICATIONS: 1. Coreg 12.5 p.o. b.i.d. 2. Melatonin 3 mg q.h.s. 3. Arimidex 1 mg p.o. daily. 4. Glucophage 1000 mg p.o. daily in the morning and 5 mg at supper. 5. Keppra 500 mg p.o. q.12. 6. Antivert 12.5 b.i.d. p.r.n. 7. Detrol LA 4 mg p.o. daily. 8. BuSpar 5 mg p.o. b.i.d. 9. Risperdal 0.5 mg in the morning, 1.5 mg in the evening. 10.Aspirin 81 mg p.o. daily. 11.Lipitor 40 mg p.o. daily. FOLLOWUP: With Dr. Hunt on 07/30/2017. Follow up with Dr. Frankel on 08/04/2017. The patient to complete course of antibiotic as prescribed by the urologist as an outpatient. MMODL / IJN: [id number] /
--- NOTE | 2017-08-17 20:37 | EEG ---
ELECTROENCEPHALOGRAM REPORT DATE OF EE07/23/2017. REFERRING PHYSICIAN: Dr. Esteves. CONSULTING AND INTERPRETING PHYSICIAN: Dr. Ryan Frankel. INDICATION FOR EXAMINATION: This patient is a 72-year-old female being evaluated for gait imbalance and possible TIA. Patient has a history of underlying seizure disorder. AGE: 72. EEG FINDINGS: A routine 21-channel awake digital EEG recording was accomplished utilizing the 10-20 international system with bipolar and referential montages. The background activity in the most alert resting state consists consist of a low to medium amplitude, poorly- developed and poorly-sustained 5-6 Hz activity over the posterior head regions. This posterior rhythm attenuates minimally to eye opening. There is a small amount of low amplitude 18-20 Hz beta activity seen maximally over the anterior head regions. Muscle and movement artifact was observed on a few occasions during the tracing. Hyperventilation was not performed. Photic stimulation and flash frequencies of 2-30 Hz produced a minimal occipital driving response. No epileptiform discharges were seen. IMPRESSION: This EEG is moderately abnormal in a diffuse fashion due to slowing of the EEG background. The EEG failed to reveal any focal, lateralized or epileptiform abnormalities. If clinically indicated, a followup EEG is recommended. Clinical correlation is recommended. MMODL / IJN: [id number] /
== END 2017-07-23 13:13 | disposition home or self-care (01) | DRG 69 ==
LOC: EC 19:36 → 6SEL 21:50
PROVIDERS: ADMIT Hospitalist; ATTEND Hospitalist
DX: G45.9 Transient cerebral ischemic attack, unspecified (principal); E11.9 Type 2 diabetes mellitus without complications; N39.0 Urinary tract infection, site not specified; I10 Essential (primary) hypertension; G40.909 Epilepsy, unspecified, not intractable, without status epilepticus; F31.9 Bipolar disorder, unspecified; E78.5 Hyperlipidemia, unspecified; K21.9 Gastro-esophageal reflux disease without esophagitis; N32.81 Overactive bladder; W01.0XXA Fall on same level from slipping, tripping and stumbling without subsequent striking against object, initial encounter; Z79.811 Long term (current) use of aromatase inhibitors; Z79.82 Long term (current) use of aspirin; Z79.84 Long term (current) use of oral hypoglycemic drugs; Z79.899 Other long term (current) drug therapy; Z82.0 Family history of epilepsy and other diseases of the nervous system; Z82.49 Family history of ischemic heart disease and other diseases of the circulatory system; Z86.73 Personal history of transient ischemic attack (TIA), and cerebral infarction without residual deficits; Z87.891 Personal history of nicotine dependence; Z96.641 Presence of right artificial hip joint; Z88.2 Allergy status to sulfonamides; Z88.8 Allergy status to other drugs, medicaments and biological substances; Z91.012 Allergy to eggs; F41.9 Anxiety disorder, unspecified
CPT/HCPCS: 36415; 70450; 70496; 70498; 71020; 80048; 80053; 80061; 80306; 81001; 82550; 82553; 83036; 84484; 85025; 85610; 85730; 87077; 87086; 87186; 93005; 93880; 95819; 96374; 96375; 99291

== ENCOUNTER 2017-08-08 11:41 | Emergency (ER) | payer MEDICARE, BC ==
[2017-08-08 11:55] VITALS: RESP 18
[2017-08-08] MEDS ORDERED: LORazepam 2 MG/ML INJ IV STA (12:39)
[2017-08-08] MEDS ORDERED: ONDANSETRON 4 MG/2 ML VIAL IVP STA (12:39)
[2017-08-08 12:48] LABS: Basophils % (A) 1 %; CH 29.5; CHCM 33.8; Eosinophils # (A) 0.2 k/uL (0-0.7); Eosinophils % (A) 3 %; HCT 35.9 % (34.0-46.0); HDW 2.58; HGB 12.3 gm/dL (11.4-16.0); Luc # (Auto) 0.12; Luc % (Auto) 2; Lymphocytes % (A) 16 %; MCH 29.9 pg (25.0-35.0); MCHC 34.1 g/dL (31.0-37.0); MCV 87.7 fL (80.0-100.0); Mean Platelet Volume 7.1; Monocytes # (A) 0.5 k/uL (0-1.0); Monocytes % (A) 9 %; Neutrophils # (A) 4.3 k/uL (1.3-7.7); Neutrophils % (A) 70 %; RDW 13.1 % (11.5-15.5); WBC 6.1 k/uL (3.8-10.6); WBC (Perox) 6.71
[2017-08-08 12:57] LABS: INR 1.1 (<1.2); Partial Thromboplastin Time 22.5 sec (22.0-30.0); Prothrombin Time 10.9 sec (9.0-12.0)
[2017-08-08 13:02] LABS: ALT 29 U/L (9-52); AST 20 U/L (14-36); Alkaline Phosphatase 108 U/L (38-126); Anion Gap 12 mmol/L; Blood Urea Nitrogen 14 mg/dL (7-17); Calcium 9.8 mg/dL (8.4-10.2); Carbon Dioxide 21 mmol/L (22-30); Chloride 106 mmol/L (98-107); Glucose 195 mg/dL (74-99); Magnesium 1.5 mg/dL (1.6-2.3); Non-African American GFR(MDRD) >60 (>60 ml/min/1.73 sqM); Phosphorus 3.5 mg/dL (2.5-4.5); Potassium 3.9 mmol/L (3.5-5.1); Sodium 139 mmol/L (137-145); Total Bilirubin 0.6 mg/dL (0.2-1.3); Total Protein 6.3 g/dL (6.3-8.2)
--- NOTE | 2017-08-08 13:04 | ED ---
General Adult HPI - General Chief complaint: Recheck/Abnormal Lab/Rx Stated complaint: right arm shakey/balance off Time Seen by Provider: 08/08/17 12:07 Source: patient, family, RN notes reviewed, old records reviewed Mode of arrival: wheelchair Limitations: no limitations - History of Present Illness Initial comments: This is a 9-year-old female to the ER for evaluation regarding anxiety, shakiness. Uncontrollable movement. Patient denies history of prior seizure although she has been in the hospital before for seizure-like activity. No other complaints. Patient does admit to some increased stress. No headache. Patient states she is not feel well. states patient's arms count of cotton[place] patient is alert the entire process the patient is very stressed at this time - Related Data Home Medications Medication Instructions Recorded Confirmed Anastrozole [Arimidex] 1 mg PO DAILY 12/22/16 08/08/17 metFORMIN HCL [Glucophage] 1,000 mg PO QAM 12/22/16 08/08/17 metFORMIN HCL [Glucophage] 500 mg PO W/SUPPER 05/13/17 08/08/17 Meclizine [Antivert] 12.5 mg PO BID PRN 07/21/17 08/08/17 Tolterodine Tartrate [Detrol LA] 4 mg PO DAILY 07/21/17 08/08/17 busPIRone HCl [Buspar] 5 mg PO BID 07/21/17 08/08/17 risperiDONE [RisperDAL] 0.5 mg PO QAM 07/21/17 08/08/17 risperiDONE [RisperDAL] 1.5 mg PO HS 07/21/17 08/08/17 Previous Rx's Medication Instructions Recorded Carvedilol [Coreg] 12.5 mg PO BID 30 Days tablet 04/19/16 Melatonin 3 mg PO HS tablet 10/24/16 levETIRAcetam [Keppra] 500 mg PO Q12HR #60 tab 05/15/17 Aspirin 81 mg PO DAILY chew 07/23/17 Atorvastatin [Lipitor] 40 mg PO DAILY #30 tab 07/23/17 Allergies Allergy/AdvReac Type Severity Reaction Status Date / Time Sulfa (Sulfonamide Allergy Unknown Unknown Verified 08/08/17 13:18 Antibiotics) egg AdvReac Diarrhea Verified 08/08/17 13:18 solifenacin [From Vesicare] AdvReac Confusion/s Verified 08/08/17 13:18 haking Review of Systems ROS Statement: Those systems with pertinent positive or pertinent negative responses have been documented in the HPI. ROS Other: All systems not noted in ROS Statement are negative. 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 History of Any Multi-Drug Resistant Organisms: None Reported Past Surgical History: Hysterectomy Additional Past Surgical History / Comment(s): Total hysterectomy, right hip arthroplasty, laser surgery of the right eye of her bleeding, bladder suspension , right elbow metal plate , gamma knife procedure for meningoma lt side of brain 03-11-17 Past Anesthesia/Blood Transfusion Reactions: No Reported Reaction Past Psychological History: Anxiety, Bipolar, Depression Smoking Status: Former smoker Past Alcohol Use History: None Reported Past Drug Use History: None Reported - Past Family History Father Family Medical History: No Reported History Additional Family Medical History / Comment(s): Father is alive in his 80s and is a smoker. Patient does not know his medical history. Mother Family Medical History: No Reported History Additional Family Medical History / Comment(s): Mother at age 79 from Alzheimer's dementia. Sister(s) Additional Family Medical History / Comment(s): She has one sister that is from heart failure. Patient does not have any brothers. Patient has 2 daughters that are 45 and 42 years of age with no major medical problems. General Exam Limitations: no limitations General appearance: alert, in no apparent distress Head exam: Present: atraumatic, normocephalic, normal inspection Eye exam: Present: normal appearance, PERRL, EOMI. Absent: scleral icterus, conjunctival injection, periorbital swelling ENT exam: Present: normal exam, mucous membranes moist Neck exam: Present: normal inspection. Absent: tenderness, meningismus, lymphadenopathy Respiratory exam: Present: normal lung sounds bilaterally. Absent: respiratory distress, wheezes, rales, rhonchi, stridor Cardiovascular Exam: Present: regular rate, normal rhythm, normal heart sounds. Absent: systolic murmur, diastolic murmur, rubs, gallop, clicks GI/Abdominal exam: Present: soft, normal bowel sounds. Absent: distended, tenderness, guarding, rebound, rigid Extremities exam: Present: normal inspection, full ROM, normal capillary refill. Absent: tenderness, pedal edema, joint swelling, calf tenderness Back exam: Present: normal inspection Neurological exam: Present: alert, oriented X3, CN II-XII intact Psychiatric exam: Present: normal affect, normal mood Skin exam: Present: warm, dry, intact, normal color. Absent: rash Course Vital Signs 08/08/17 08/08/17 11:45 12:55 Temperature 98.4 F Pulse Rate 64 63 Respiratory 18 18 Rate Blood Pressure 147/71 151/84 O2 Sat by Pulse 98 96 Oximetry - Reevaluation(s) Reevaluation #1: 08/08/17 14:11 Patient is without significant symptoms, no recurrence of activity, feels better with anxiolysis EKG Findings - EKG Comments: EKG Findings:: EKG shows normal sinus rhythm rate of 70, NH 170, QRS 82, QTc 451 Medical Decision Making - Medical Decision Making 72 female to ER if anxiety like behavior or agitation. Patient at this time as well complaint, CT is negative labwork is normal patient would like to be discharged home - Lab Data Result diagrams: 08/08/17 12:22 08/08/17 12:22 Lab Results 08/08/17 08/08/17 08/08/17 Range/Units 12:22 12:22 12:22 WBC 6.1 (3.8-10.6) k/uL RBC 4.10 (3.80-5.40) m/uL Hgb 12.3 (11.4-16.0) gm/dL Hct 35.9 (34.0-46.0) % MCV 87.7 (80.0-100.0) fL MCH 29.9 (25.0-35.0) pg MCHC 34.1 (31.0-37.0) g/dL RDW 13.1 (11.5-15.5) % Plt Count 184 (150-450) k/uL Neutrophils % 70 % Lymphocytes % 16 % Monocytes % 9 % Eosinophils % 3 % Basophils % 1 % Neutrophils # 4.3 (1.3-7.7) k/uL Lymphocytes # 1.0 (1.0-4.8) k/uL Monocytes # 0.5 (0-1.0) k/uL Eosinophils # 0.2 (0-0.7) k/uL Basophils # 0.0 (0-0.2) k/uL PT (9.0-12.0) sec INR (<1.2) APTT (22.0-30.0) sec Sodium 139 (137-145) mmol/L Potassium 3.9 (3.5-5.1) mmol/L Chloride 106 (98-107) mmol/L Carbon Dioxide 21 L (22-30) mmol/L Anion Gap 12 mmol/L BUN 14 (7-17) mg/dL Creatinine 0.60 (0.52-1.04) mg/dL Est GFR (MDRD) Af Amer >60 (>60 ml/min/1.73 sqM) Est GFR (MDRD) Non-Af >60 (>60 ml/min/1.73 sqM) Glucose 195 H (74-99) mg/dL Calcium 9.8 (8.4-10.2) mg/dL Phosphorus 3.5 (2.5-4.5) mg/dL Magnesium 1.5 L (1.6-2.3) mg/dL Total Bilirubin 0.6 (0.2-1.3) mg/dL AST 20 (14-36) U/L ALT 29 (9-52) U/L Alkaline Phosphatase 108 (38-126) U/L Total Creatine Kinase 74 (30-135) U/L CK-MB (CK-2) 0.7 (0.0-2.4) ng/mL CK-MB (CK-2) Rel Index 0.9 Troponin I <0.012 (0.000-0.034) ng/mL Total Protein 6.3 (6.3-8.2) g/dL Albumin 3.8 (3.5-5.0) g/dL 08/08/17 Range/Units 12:22 WBC (3.8-10.6) k/uL RBC (3.80-5.40) m/uL Hgb (11.4-16.0) gm/dL Hct (34.0-46.0) % MCV (80.0-100.0) fL MCH (25.0-35.0) pg MCHC (31.0-37.0) g/dL RDW (11.5-15.5) % Plt Count (150-450) k/uL Neutrophils % % Lymphocytes % % Monocytes % % Eosinophils % % Basophils % % Neutrophils # (1.3-7.7) k/uL Lymphocytes # (1.0-4.8) k/uL Monocytes # (0-1.0) k/uL Eosinophils # (0-0.7) k/uL Basophils # (0-0.2) k/uL PT 10.9 (9.0-12.0) sec INR 1.1 (<1.2) APTT 22.5 (22.0-30.0) sec Sodium (137-145) mmol/L Potassium (3.5-5.1) mmol/L Chloride (98-107) mmol/L Carbon Dioxide (22-30) mmol/L Anion Gap mmol/L BUN (7-17) mg/dL Creatinine (0.52-1.04) mg/dL Est GFR (MDRD) Af Amer (>60 ml/min/1.73 sqM) Est GFR (MDRD) Non-Af (>60 ml/min/1.73 sqM) Glucose (74-99) mg/dL Calcium (8.4-10.2) mg/dL Phosphorus (2.5-4.5) mg/dL Magnesium (1.6-2.3) mg/dL Total Bilirubin (0.2-1.3) mg/dL AST (14-36) U/L ALT (9-52) U/L Alkaline Phosphatase (38-126) U/L Total Creatine Kinase (30-135) U/L CK-MB (CK-2) (0.0-2.4) ng/mL CK-MB (CK-2) Rel Index Troponin I (0.000-0.034) ng/mL Total Protein (6.3-8.2) g/dL Albumin (3.5-5.0) g/dL - Radiology Data Radiology results: report reviewed (CT brain is negative for acute disease), image reviewed Disposition Clinical Impression: Anxiety Disposition: HOME SELF-CARE Condition: Good Instructions: Anxiety (ED) Referrals: Mani Hunt DO [Primary Care Provider] - 1-2 days
[2017-08-08 13:13] LABS: Creatine Kinase 74 U/L (30-135)
[2017-08-08 13:25] LABS: Creatine Kinase MB 0.7 ng/mL (0.0-2.4); Troponin I <0.012 ng/mL (0.000-0.034)
--- NOTE | 2017-08-08 13:41 | CT ---
EXAMINATION TYPE: CT brain wo con DATE OF EXAM: 08/08/2017 COMPARISON: 05/13/2017 HISTORY: Weakness and confusion CT DLP: 943.8 mGycm. Automated Exposure Control for Dose Reduction was Utilized. TECHNIQUE: CT scan of the head is performed without contrast. FINDINGS: There is no acute intracranial hemorrhage, mass effect, or midline shift identified. Dyst rophic calcification within the subarachnoid space of the left central sulcus is unchanged in compari son to the prior exam. The ventricles and sulci are within again symmetrically prominent compatible w ith age-related volume loss. Few foci of hypoattenuation are again seen within the periventricular a nd subcortical white matter. The globes are intact and the visualized sinuses are clear. No hyperdens e MCA sign or blurring in the basal ganglia are seen. Insular cortex is intact. IMPRESSION: No acute intracranial hemorrhage, mass effect, or midline shift is seen. Unchanged exam in comparison to the prior with mild nonspecific white matter changes and cerebral atrophy.
[2017-08-08 14:23] VITALS: BP 141/75; PULSE 66; TEMP 97.3
== END 2017-08-08 14:43 | disposition home or self-care (01) ==
LOC: EC 11:41
DX: F41.9 Anxiety disorder, unspecified (principal); E11.9 Type 2 diabetes mellitus without complications; F32.9 Major depressive disorder, single episode, unspecified; Z86.73 Personal history of transient ischemic attack (TIA), and cerebral infarction without residual deficits; Z95.3 Presence of xenogenic heart valve; Z87.891 Personal history of nicotine dependence; Z86.69 Personal history of other diseases of the nervous system and sense organs; Z79.84 Long term (current) use of oral hypoglycemic drugs; Z79.899 Other long term (current) drug therapy; Z88.2 Allergy status to sulfonamides; Z91.012 Allergy to eggs; Z88.8 Allergy status to other drugs, medicaments and biological substances
CPT/HCPCS: 36415; 93005; 80053; 82550; 82553; 83735; 84100; 84484; 85025; 85610; 85730; 70450; 99285; 96374; 96375; J2060; J2405

== ENCOUNTER → 2017-10-04 | Outpatient (CLI) | payer MEDICARE, BC | END | disposition home or self-care (01) | LOC: LABWHC1 08:27 | PROVIDERS: ATTEND Psychiatry & Neurology Neurology | DX: G40.209 Localization-related (focal) (partial) symptomatic epilepsy and epileptic syndromes with complex partial seizures, not intractable, without status epilepticus (principal) | CPT/HCPCS: 36415; 80177 ==

== ENCOUNTER 2017-10-13 10:19 | Emergency (ER) | payer MEDICARE, BC ==
[2017-10-13] MEDS ORDERED: SODIUM CHLORIDE 0.9% 500 ML IV STA (10:25)
[2017-10-13] MEDS ORDERED: SODIUM CHLORIDE 0.9% 1,000 ML IV STA (10:25)
--- NOTE | 2017-10-13 10:47 | ED ---
General Adult HPI - General Chief complaint: Chest Pain Stated complaint: CHEST AND BACK PAIN Time Seen by Provider: 10/13/17 10:25 Source: patient, RN notes reviewed, old records reviewed Mode of arrival: wheelchair Limitations: no limitations - History of Present Illness Initial comments: This is a 72-year-old female the ER for evaluation of chest pain back pain. Patient does have significant history of cardiac risk factors and underlying medical issues. Patient does have history of back pain and states her back pain is pretty, but this was just a little bit worse than normal. She woke up with the ER surveys persisted throughout the day and resolved just prior to arrival to the emergency room today. She went to breakfast was still having the pain decided to come to the hospital in the pain is now resolved. Patient denied any shortness of breath and diaphoresis recent fevers or travel history no sick contacts. She did take Tylenol which also helped improve the pain before bed last night. Patient's up without difficulty - Related Data Home Medications Medication Instructions Recorded Confirmed Anastrozole [Arimidex] 1 mg PO DAILY 12/22/16 10/13/17 metFORMIN HCL [Glucophage] 1,000 mg PO AC-BRKFST 12/22/16 10/13/17 metFORMIN HCL [Glucophage] 500 mg PO AC-SUPPER 05/13/17 10/13/17 Tolterodine Tartrate [Detrol LA] 4 mg PO DAILY 07/21/17 10/13/17 busPIRone HCl [Buspar] 5 mg PO BID 07/21/17 10/13/17 Cholecalciferol [Vitamin D3] 1,000 unit PO DAILY 08/09/17 10/13/17 Cranberry Fruit Extract [Cranberry] 500 mg PO DAILY 08/09/17 10/13/17 Cyanocobalamin (Vitamin B-12) 1,000 mcg PO DAILY 08/09/17 10/13/17 [Vitamin B-12] Triple Lecithin 1 tab PO DAILY 08/09/17 10/13/17 Ubidecarenone [Co Q-10] 100 mg PO DAILY 08/09/17 10/13/17 Melatonin 3 mg PO HS 10/13/17 10/13/17 Multivitamins, Thera [Multivitamin 1 tab PO DAILY 10/13/17 10/13/17 (formulary)] rOPINIRole HCL [Requip] 1 mg PO HS 10/13/17 10/13/17 risperiDONE [RisperDAL] 0.5 mg PO QAM 10/13/17 10/13/17 Previous Rx's Medication Instructions Recorded Carvedilol [Coreg] 12.5 mg PO BID 30 Days tablet 04/19/16 levETIRAcetam [Keppra] 500 mg PO Q12HR #60 tab 05/15/17 Aspirin 81 mg PO DAILY chew 07/23/17 Atorvastatin [Lipitor] 40 mg PO DAILY #30 tab 07/23/17 Allergies Allergy/AdvReac Type Severity Reaction Status Date / Time Sulfa (Sulfonamide Allergy Unknown Unknown Verified 10/13/17 12:02 Antibiotics) egg AdvReac Diarrhea Verified 10/13/17 12:02 solifenacin [From Vesicare] AdvReac Confusion/s Verified 10/13/17 12:02 lindsey Review of Systems ROS Statement: Those systems with pertinent positive or pertinent negative responses have been documented in the HPI. ROS Other: All systems not noted in ROS Statement are negative. 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 History of Any Multi-Drug Resistant Organisms: None Reported Past Surgical History: Hysterectomy Additional Past Surgical History / Comment(s): Total hysterectomy, right hip arthroplasty, laser surgery of the right eye of her bleeding, bladder suspension , right elbow metal plate , gamma knife procedure for meningoma lt side of brain 03-11-17 Past Anesthesia/Blood Transfusion Reactions: No Reported Reaction Past Psychological History: Anxiety, Bipolar, Depression Smoking Status: Former smoker Past Alcohol Use History: None Reported Past Drug Use History: None Reported - Past Family History Father Family Medical History: No Reported History Additional Family Medical History / Comment(s): Father is alive in his 80s and is a smoker. Patient does not know his medical history. Mother Family Medical History: No Reported History Additional Family Medical History / Comment(s): Mother at age 79 from Alzheimer's dementia. Sister(s) Additional Family Medical History / Comment(s): She has one sister that is from heart failure. Patient does not have any brothers. Patient has 2 daughters that are 45 and 42 years of age with no major medical problems. General Exam Limitations: no limitations General appearance: alert, in no apparent distress Head exam: Present: atraumatic, normocephalic, normal inspection Eye exam: Present: normal appearance, PERRL, EOMI. Absent: scleral icterus, conjunctival injection, periorbital swelling ENT exam: Present: normal exam, mucous membranes moist Neck exam: Present: normal inspection. Absent: tenderness, meningismus, lymphadenopathy Respiratory exam: Present: normal lung sounds bilaterally. Absent: respiratory distress, wheezes, rales, rhonchi, stridor Cardiovascular Exam: Present: regular rate, normal rhythm, normal heart sounds. Absent: systolic murmur, diastolic murmur, rubs, gallop, clicks GI/Abdominal exam: Present: soft, normal bowel sounds. Absent: distended, tenderness, guarding, rebound, rigid Extremities exam: Present: normal inspection, full ROM, normal capillary refill. Absent: tenderness, pedal edema, joint swelling, calf tenderness Back exam: Present: normal inspection Neurological exam: Present: alert, oriented X3, CN II-XII intact Psychiatric exam: Present: normal affect, normal mood Skin exam: Present: warm, dry, intact, normal color. Absent: rash Course Vital Signs 10/13/17 10:21 Temperature 97.0 F L Pulse Rate 72 Respiratory 16 Rate Blood Pressure 152/83 O2 Sat by Pulse 97 Oximetry - Reevaluation(s) Reevaluation #1: 10/13/17 12:53 Patient remains a symptomatically and emergency department stay Reevaluation #2: 10/13/17 12:53 Patient warned of her history of cardiac risk, encouraged to stay in hospital. Patient states she feels completely fine at this time I will like to go home EKG Findings - EKG Comments: EKG Findings:: EKG shows normal sinus rhythm rate of 70, MS 176, QRS 84, QTC 449 Medical Decision Making - Medical Decision Making 72 female to ER for evaluation regards to chest pain back pain. Patient was astigmatic upon arrival to the ER, chest x-ray LABWORK IS NEGATIVE EKG IS NEGATIVE TROPONINS NEGATIVE. PATIENT CAN BE DISCHARGED HOME - Lab Data Result diagrams: 10/13/17 10:38 10/13/17 10:38 Lab Results 10/13/17 10/13/17 10/13/17 Range/Units 10:38 10:38 10:38 WBC 5.9 (3.8-10.6) k/uL RBC 4.25 (3.80-5.40) m/uL Hgb 12.5 (11.4-16.0) gm/dL Hct 37.3 (34.0-46.0) % MCV 87.8 (80.0-100.0) fL MCH 29.4 (25.0-35.0) pg MCHC 33.5 (31.0-37.0) g/dL RDW 13.6 (11.5-15.5) % Plt Count 179 (150-450) k/uL Neutrophils % 67 % Lymphocytes % 22 % Monocytes % 6 % Eosinophils % 2 % Basophils % 1 % Neutrophils # 4.0 (1.3-7.7) k/uL Lymphocytes # 1.3 (1.0-4.8) k/uL Monocytes # 0.4 (0-1.0) k/uL Eosinophils # 0.1 (0-0.7) k/uL Basophils # 0.0 (0-0.2) k/uL PT (9.0-12.0) sec INR (<1.2) APTT (22.0-30.0) sec D-Dimer (<0.60) mg/L FEU Sodium 139 (137-145) mmol/L Potassium 4.1 (3.5-5.1) mmol/L Chloride 103 (98-107) mmol/L Carbon Dioxide 25 (22-30) mmol/L Anion Gap 11 mmol/L BUN 14 (7-17) mg/dL Creatinine 0.57 (0.52-1.04) mg/dL Est GFR (MDRD) Af Amer >60 (>60 ml/min/1.73 sqM) Est GFR (MDRD) Non-Af >60 (>60 ml/min/1.73 sqM) Glucose 248 H (74-99) mg/dL Calcium 9.9 (8.4-10.2) mg/dL Magnesium 1.5 L (1.6-2.3) mg/dL Total Bilirubin 0.5 (0.2-1.3) mg/dL AST 17 (14-36) U/L ALT 21 (9-52) U/L Alkaline Phosphatase 140 H (38-126) U/L Total Creatine Kinase 56 (30-135) U/L CK-MB (CK-2) 0.6 (0.0-2.4) ng/mL CK-MB (CK-2) Rel Index 1.1 Troponin I <0.012 (0.000-0.034) ng/mL Total Protein 6.3 (6.3-8.2) g/dL Albumin 3.8 (3.5-5.0) g/dL Lipase 71 (23-300) U/L 10/13/17 Range/Units 10:38 WBC (3.8-10.6) k/uL RBC (3.80-5.40) m/uL Hgb (11.4-16.0) gm/dL Hct (34.0-46.0) % MCV (80.0-100.0) fL MCH (25.0-35.0) pg MCHC (31.0-37.0) g/dL RDW (11.5-15.5) % Plt Count (150-450) k/uL Neutrophils % % Lymphocytes % % Monocytes % % Eosinophils % % Basophils % % Neutrophils # (1.3-7.7) k/uL Lymphocytes # (1.0-4.8) k/uL Monocytes # (0-1.0) k/uL Eosinophils # (0-0.7) k/uL Basophils # (0-0.2) k/uL PT 10.3 (9.0-12.0) sec INR 1.1 (<1.2) APTT 22.4 (22.0-30.0) sec D-Dimer 0.50 (<0.60) mg/L FEU Sodium (137-145) mmol/L Potassium (3.5-5.1) mmol/L Chloride (98-107) mmol/L Carbon Dioxide (22-30) mmol/L Anion Gap mmol/L BUN (7-17) mg/dL Creatinine (0.52-1.04) mg/dL Est GFR (MDRD) Af Amer (>60 ml/min/1.73 sqM) Est GFR (MDRD) Non-Af (>60 ml/min/1.73 sqM) Glucose (74-99) mg/dL Calcium (8.4-10.2) mg/dL Magnesium (1.6-2.3) mg/dL Total Bilirubin (0.2-1.3) mg/dL AST (14-36) U/L ALT (9-52) U/L Alkaline Phosphatase (38-126) U/L Total Creatine Kinase (30-135) U/L CK-MB (CK-2) (0.0-2.4) ng/mL CK-MB (CK-2) Rel Index Troponin I (0.000-0.034) ng/mL Total Protein (6.3-8.2) g/dL Albumin (3.5-5.0) g/dL Lipase (23-300) U/L - Radiology Data Radiology results: report reviewed (Chest x-ray ultrasound gallbladder negative for acute disease), image reviewed Disposition Clinical Impression: Chest pain Disposition: HOME SELF-CARE Condition: Good Instructions: Chest Pain (ED) Referrals: Mani Hunt DO [Primary Care Provider] - 1-2 days
[2017-10-13 10:58] LABS: Basophils % (A) 1 %; Eosinophils # (A) 0.1 k/uL (0-0.7); Eosinophils % (A) 2 %; HCT 37.3 % (34.0-46.0); HGB 12.5 gm/dL (11.4-16.0); Lymphocytes # (A) 1.3 k/uL (1.0-4.8); Lymphocytes % (A) 22 %; MCH 29.4 pg (25.0-35.0); MCHC 33.5 g/dL (31.0-37.0); MCV 87.8 fL (80.0-100.0); Mean Platelet Volume 7.6; Monocytes # (A) 0.4 k/uL (0-1.0); Monocytes % (A) 6 %; Neutrophils % (A) 67 %; Platelet Count 179 k/uL (150-450); RBC 4.25 m/uL (3.80-5.40); RDW 13.6 % (11.5-15.5); WBC 5.9 k/uL (3.8-10.6)
[2017-10-13 11:16] LABS: D-Dimer 0.5 mg/L FEU (<0.60); INR 1.1 (<1.2); Partial Thromboplastin Time 22.4 sec (22.0-30.0); Prothrombin Time 10.3 sec (9.0-12.0)
[2017-10-13 11:18] LABS: ALT 21 U/L (9-52); AST 17 U/L (14-36); Albumin 3.8 g/dL (3.5-5.0); Alkaline Phosphatase 140 U/L (38-126); Anion Gap 11 mmol/L; Blood Urea Nitrogen 14 mg/dL (7-17); Calcium 9.9 mg/dL (8.4-10.2); Carbon Dioxide 25 mmol/L (22-30); Chloride 103 mmol/L (98-107); Glucose 248 mg/dL (74-99); Lipase 71 U/L (23-300); Magnesium 1.5 mg/dL (1.6-2.3); Potassium 4.1 mmol/L (3.5-5.1); Sodium 139 mmol/L (137-145); Total Bilirubin 0.5 mg/dL (0.2-1.3); Total Protein 6.3 g/dL (6.3-8.2)
[2017-10-13 11:19] LABS: Creatine Kinase 56 U/L (30-135)
[2017-10-13 11:30] LABS: Creatine Kinase MB 0.6 ng/mL (0.0-2.4); Troponin I <0.012 ng/mL (0.000-0.034)
--- NOTE | 2017-10-13 11:54 | XR ---
EXAMINATION TYPE: XR chest 2V DATE OF EXAM: 10/13/2017 COMPARISON: 07/21/2017 INDICATION: Chest pain TECHNIQUE: Frontal and lateral views of the chest are obtained. FINDINGS: The heart size is normal. The pulmonary vasculature is normal. The lungs are clear. Old right rib fractures are likely present. Spondylosis through the thoracic sp ine. IMPRESSION: 1. No acute pulmonary process.
--- NOTE | 2017-10-13 12:28 | US ---
EXAMINATION TYPE: US gallbladder DATE OF EXAM: 10/13/2017 COMPARISON: CT 04/30/2016 CLINICAL HISTORY: Pain. back and chest pain EXAM MEASUREMENTS: Liver Length: 14.4 cm Gallbladder Wall: Surgically absent cm CBD: 0.4 cm Right Kidney: 12.2 x 4.8 x 5.0 cm Pancreas: visualized portions wnl Liver: wnl Gallbladder: Surgically absent per CT report CBD: wnl Right Kidney: not well visualized due to bowel gas patient is poor historian, not sure if her gallbladder has been removed. CT report from 2016 states c holecystectomy changes. No gallbladder seen on today's exam. IMPRESSION: 1. Unremarkable right upper quadrant ultrasound. Patient appears post cholecystectomy
[2017-10-13 13:11] VITALS: BP 139/66; PULSE 63; RESP 19; TEMP 97.6
== END 2017-10-13 13:38 | disposition home or self-care (01) ==
LOC: EC 10:19
DX: R07.9 Chest pain, unspecified (principal); M54.9 Dorsalgia, unspecified; E11.9 Type 2 diabetes mellitus without complications; F31.9 Bipolar disorder, unspecified; F41.9 Anxiety disorder, unspecified; Z85.3 Personal history of malignant neoplasm of breast; Z87.891 Personal history of nicotine dependence; Z86.011 Personal history of benign neoplasm of the brain; Z79.84 Long term (current) use of oral hypoglycemic drugs; Z79.899 Other long term (current) drug therapy; Z88.2 Allergy status to sulfonamides; Z91.012 Allergy to eggs; Z88.8 Allergy status to other drugs, medicaments and biological substances
CPT/HCPCS: 36415; 71046; 76705; 80053; 82550; 82553; 83690; 83735; 84484; 85025; 85379; 85610; 85730; 93005; 99285

== ENCOUNTER 2017-11-10 14:24 | Emergency (ER) | payer MEDICARE, BC ==
--- NOTE | 2017-11-10 15:04 | ED ---
Psych HPI - General Chief Complaint: Psychiatric Symptoms Stated Complaint: mental health Time Seen by Provider: 11/10/17 14:39 Source: patient, RN notes reviewed Mode of arrival: ambulatory Limitations: no limitations - History of Present Illness Initial Comments: 72-year-old female presents emergency Department chief complaint psychiatric evaluation. Patient states she is depressed and having some thoughts of suicide she states that she talked that she wants to end her life but states that she no she won't do that she does not really want to do a. She states that she was started on BuSpar and Restoril recently. Patient states that she believes that the medications are start causing this. She does have a history of bipolar disorder. Patient states that she has no drug abuse. Obvious. - Related Data Home Medications Medication Instructions Recorded Confirmed Anastrozole [Arimidex] 1 mg PO DAILY 12/22/16 11/10/17 metFORMIN HCL [Glucophage] 1,000 mg PO AC-BRKFST 12/22/16 11/10/17 metFORMIN HCL [Glucophage] 500 mg PO AC-SUPPER 05/13/17 11/10/17 Tolterodine Tartrate [Detrol LA] 4 mg PO DAILY 07/21/17 11/10/17 busPIRone HCl [Buspar] 5 mg PO BID 07/21/17 11/10/17 Cholecalciferol [Vitamin D3] 1,000 unit PO DAILY 08/09/17 11/10/17 Cranberry Fruit Extract [Cranberry] 500 mg PO DAILY 08/09/17 11/10/17 Cyanocobalamin (Vitamin B-12) 1,000 mcg PO DAILY 08/09/17 11/10/17 [Vitamin B-12] Triple Lecithin 1 tab PO DAILY 08/09/17 11/10/17 Ubidecarenone [Co Q-10] 100 mg PO DAILY 08/09/17 11/10/17 Melatonin 3 mg PO HS 10/13/17 11/10/17 Multivitamins, Thera [Multivitamin 1 tab PO DAILY 10/13/17 11/10/17 (formulary)] risperiDONE [RisperDAL] 0.5 mg PO QAM 10/13/17 11/10/17 Atorvastatin [Lipitor] 10 mg PO DAILY 11/10/17 11/10/17 risperiDONE [RisperDAL] 1.5 mg PO HS 11/10/17 11/10/17 Previous Rx's Medication Instructions Recorded Carvedilol [Coreg] 12.5 mg PO BID 30 Days tablet 04/19/16 levETIRAcetam [Keppra] 500 mg PO Q12HR #60 tab 05/15/17 Aspirin 81 mg PO DAILY chew 07/23/17 Allergies Allergy/AdvReac Type Severity Reaction Status Date / Time Sulfa (Sulfonamide Allergy Unknown Unknown Verified 11/10/17 14:59 Antibiotics) egg AdvReac Diarrhea Verified 11/10/17 14:59 solifenacin [From Vesicare] AdvReac Confusion/s Verified 11/10/17 14:59 lindsey Review of Systems ROS Statement: Those systems with pertinent positive or pertinent negative responses have been documented in the HPI. ROS Other: All systems not noted in ROS Statement are negative. 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 History of Any Multi-Drug Resistant Organisms: None Reported Past Surgical History: Hysterectomy Additional Past Surgical History / Comment(s): Total hysterectomy, right hip arthroplasty, laser surgery of the right eye of her bleeding, bladder suspension , right elbow metal plate , gamma knife procedure for meningoma lt side of brain 03-11-17 Past Anesthesia/Blood Transfusion Reactions: No Reported Reaction Past Psychological History: Anxiety, Bipolar, Depression Smoking Status: Former smoker Past Alcohol Use History: None Reported Past Drug Use History: None Reported - Past Family History Father Family Medical History: No Reported History Additional Family Medical History / Comment(s): Father is alive in his 80s and is a smoker. Patient does not know his medical history. Mother Family Medical History: No Reported History Additional Family Medical History / Comment(s): Mother at age 79 from Alzheimer's dementia. Sister(s) Additional Family Medical History / Comment(s): She has one sister that is from heart failure. Patient does not have any brothers. Patient has 2 daughters that are 45 and 42 years of age with no major medical problems. General Exam Limitations: no limitations General appearance: alert, in no apparent distress Head exam: Present: atraumatic, normocephalic, normal inspection Eye exam: Present: normal appearance, PERRL, EOMI. Absent: scleral icterus, conjunctival injection, periorbital swelling ENT exam: Present: normal exam, normal oropharynx, mucous membranes moist Neck exam: Present: normal inspection, full ROM. Absent: tenderness, meningismus, lymphadenopathy Respiratory exam: Present: normal lung sounds bilaterally. Absent: respiratory distress, wheezes, rales, rhonchi, stridor Cardiovascular Exam: Present: regular rate, normal rhythm, normal heart sounds. Absent: systolic murmur, diastolic murmur, rubs, gallop, clicks Neurological exam: Present: alert, oriented X3, CN II-XII intact, reflexes normal. Absent: motor sensory deficit Skin exam: Present: warm, dry, intact, normal color. Absent: rash Course Vital Signs 11/10/17 14:28 Temperature 96.8 F L Pulse Rate 71 Respiratory 17 Rate Blood Pressure 149/73 O2 Sat by Pulse 98 Oximetry Medical Decision Making - Medical Decision Making 72-year-old female presented for psychiatric evaluation. Patient was evaluated by EPS the did discuss case with psychiatry they feel that she is safe to go home agrees that she is safe. She has not a harm for herself she'll follow-up with her therapist and psychiatrist Dr. ruth. Return parameters were discussed. - Lab Data Result diagrams: 11/10/17 14:56 11/10/17 14:56 Lab Results 11/10/17 11/10/17 11/10/17 Range/Units 14:56 14:56 15:44 WBC 6.3 (3.8-10.6) k/uL RBC 4.17 (3.80-5.40) m/uL Hgb 12.2 (11.4-16.0) gm/dL Hct 35.9 (34.0-46.0) % MCV 86.0 (80.0-100.0) fL MCH 29.2 (25.0-35.0) pg MCHC 33.9 (31.0-37.0) g/dL RDW 12.4 (11.5-15.5) % Plt Count 203 (150-450) k/uL Neutrophils % 63 % Lymphocytes % 24 % Monocytes % 8 % Eosinophils % 2 % Basophils % 1 % Neutrophils # 4.0 (1.3-7.7) k/uL Lymphocytes # 1.5 (1.0-4.8) k/uL Monocytes # 0.5 (0-1.0) k/uL Eosinophils # 0.2 (0-0.7) k/uL Basophils # 0.0 (0-0.2) k/uL Sodium 139 (137-145) mmol/L Potassium 4.0 (3.5-5.1) mmol/L Chloride 103 (98-107) mmol/L Carbon Dioxide 25 (22-30) mmol/L Anion Gap 11 mmol/L BUN 18 H (7-17) mg/dL Creatinine 0.59 (0.52-1.04) mg/dL Est GFR (MDRD) Af Amer >60 (>60 ml/min/1.73 sqM) Est GFR (MDRD) Non-Af >60 (>60 ml/min/1.73 sqM) Glucose 269 H (74-99) mg/dL Calcium 9.5 (8.4-10.2) mg/dL Total Bilirubin 0.4 (0.2-1.3) mg/dL AST 16 (14-36) U/L ALT 26 (9-52) U/L Alkaline Phosphatase 136 H (38-126) U/L Total Protein 6.1 L (6.3-8.2) g/dL Albumin 3.6 (3.5-5.0) g/dL Urine Color Dark Yellow Urine Appearance Turbid H (Clear) Urine pH 6.0 (5.0-8.0) Ur Specific [place] 1.014 (1.001-1.035) Urine Protein 1+ H (Negative) Urine Glucose (UA) 4+ H (Negative) Urine Ketones Negative (Negative) Urine Blood Small H (Negative) Urine Nitrite Negative (Negative) Urine Bilirubin Negative (Negative) Urine Urobilinogen <2.0 (<2.0) mg/dL Ur Leukocyte Esterase Large H (Negative) Urine RBC 12 H (0-5) /hpf Urine WBC >182 H (0-5) /hpf Urine WBC Clumps Many H (None) /hpf Urine Yeast (Budding) Few H (None) /hpf Urine Opiates Screen Not Detected (NotDetected) Ur Oxycodone Screen Not Detected (NotDetected) Urine Methadone Screen Not Detected (NotDetected) Ur Propoxyphene Screen Not Detected (NotDetected) Ur Barbiturates Screen Not Detected (NotDetected) U Tricyclic Antidepress Not Detected (NotDetected) Ur Phencyclidine Scrn Not Detected (NotDetected) Ur Amphetamines Screen Not Detected (NotDetected) U Methamphetamines Scrn Not Detected (NotDetected) U Benzodiazepines Scrn Not Detected (NotDetected) Urine Cocaine Screen Not Detected (NotDetected) U Marijuana (THC) Screen Not Detected (NotDetected) Disposition Clinical Impression: Depression Disposition: HOME SELF-CARE Condition: Stable Instructions: Depression (ED) Additional Instructions: Please return to the Emergency Department if symptoms worsen or any other concerns. Referrals: [facility] [Outside] - 11/13/17 10:00 am (with Sachi Silvestre) Mani Hunt DO [Primary Care Provider] - 1-2 days Time of Disposition: 16:34
[2017-11-10 15:07] LABS: Basophils % (A) 1 %; Eosinophils # (A) 0.2 k/uL (0-0.7); Eosinophils % (A) 2 %; HCT 35.9 % (34.0-46.0); HGB 12.2 gm/dL (11.4-16.0); Lymphocytes # (A) 1.5 k/uL (1.0-4.8); Lymphocytes % (A) 24 %; MCH 29.2 pg (25.0-35.0); MCHC 33.9 g/dL (31.0-37.0); Mean Platelet Volume 7.1; Monocytes # (A) 0.5 k/uL (0-1.0); Monocytes % (A) 8 %; Neutrophils % (A) 63 %; Platelet Count 203 k/uL (150-450); RBC 4.17 m/uL (3.80-5.40); RDW 12.4 % (11.5-15.5); WBC 6.3 k/uL (3.8-10.6)
[2017-11-10 15:22] LABS: ALT 26 U/L (9-52); AST 16 U/L (14-36); Albumin 3.6 g/dL (3.5-5.0); Alkaline Phosphatase 136 U/L (38-126); Anion Gap 11 mmol/L; Blood Urea Nitrogen 18 mg/dL (7-17); Calcium 9.5 mg/dL (8.4-10.2); Carbon Dioxide 25 mmol/L (22-30); Chloride 103 mmol/L (98-107); Glucose 269 mg/dL (74-99); Sodium 139 mmol/L (137-145); Total Bilirubin 0.4 mg/dL (0.2-1.3); Total Protein 6.1 g/dL (6.3-8.2)
[2017-11-10 15:57] LABS: Appearance,Urine Turbid (Clear); Bilirubin,Urine Negative (Negative); Blood,Urine Small (Negative); Budding Yeast,Urine Few /hpf; Color,Urine Dark Yellow; Glucose,Urine (UA) 4+ (Negative); Ketones,Urine Negative (Negative); Leukocyte Esterase,Urine Large (Negative); Nitrite,Urine Negative (Negative); Protein,Urine 1+ (Negative); RBC,Urine 12 /hpf (0-5); Specific Gravity,Urine 1.014 (1.001-1.035); Urobilinogen,Urine <2.0 mg/dL (<2.0); WBC,Urine >182 /hpf (0-5)
[2017-11-10 16:04] LABS: Amphetamine Screen,Urine Not Detected (NotDetected); Barbiturate Screen,Urine Not Detected (NotDetected); Benzodiazepines Screen,Urine Not Detected (NotDetected); Cocaine Screen,Urine Not Detected (NotDetected); Methadone Screen, Urine Not Detected (NotDetected); Opiate Screen,Urine Not Detected (NotDetected); Oxycodone Screen, Urine Not Detected (NotDetected); Phencyclidine Screen,Urine Not Detected (NotDetected); Tricyclic Antidepressant,Urine Not Detected (NotDetected); Urn Cannabinoid Scrn Not Detected (NotDetected)
[2017-11-10 16:42] VITALS: BP 132/80; PULSE 78; RESP 18; TEMP 98
== END 2017-11-10 16:41 | disposition home or self-care (01) ==
LOC: EC 14:24
DX: F31.9 Bipolar disorder, unspecified (principal); R45.851 Suicidal ideations; E11.9 Type 2 diabetes mellitus without complications; E78.5 Hyperlipidemia, unspecified; F41.9 Anxiety disorder, unspecified; Z85.3 Personal history of malignant neoplasm of breast; Z85.841 Personal history of malignant neoplasm of brain; Z87.891 Personal history of nicotine dependence; Z79.84 Long term (current) use of oral hypoglycemic drugs; Z79.899 Other long term (current) drug therapy; Z88.8 Allergy status to other drugs, medicaments and biological substances; Z91.012 Allergy to eggs
CPT/HCPCS: 36415; 80053; 80306; 81001; 82075; 85025; 99284

== ENCOUNTER 2018-01-08 21:59 | Emergency (ER) | payer MEDICARE, BC ==
[2018-01-08 22:06] VITALS: PULSE 68; RESP 16
--- NOTE | 2018-01-08 22:31 | ED ---
Extremity Problem HPI - General Chief complaint: Extremity Problem,Nontraumatic Stated complaint: neck pain Time Seen by Provider: 01/08/18 22:16 Source: patient Mode of arrival: ambulatory Limitations: no limitations - History of Present Illness Initial comments: 72-year-old female patient presents to the emergency department today for evaluation of right shoulder pain. Patient states approximately 3 hours ago she was pushing herself up off the couch when she felt something crack in the right shoulder. States that she has been having significant pain to the shoulder since then. She denies any increased pain with movement of the joint or her neck. Patient states that she has been having discomfort intermittently to the right shoulder for the last month or so. Patient denies any numbness to the right upper extremity. She denies any other known injury. Patient denies any chest pain, shortness of breath, nausea, vomiting, or abdominal pain. Patient denies any recent rash, fever, chills, diarrhea, constipation, back pain , numbness, tingling, dizziness, weakness, hematuria, dysuria, urinary urgency, urinary frequency, headache, visual changes, or any other complaints. - Related Data Home Medications Medication Instructions Recorded Confirmed Anastrozole [Arimidex] 1 mg PO DAILY 12/22/16 01/08/18 metFORMIN HCL [Glucophage] 1,000 mg PO AC-BRKFST 12/22/16 01/08/18 metFORMIN HCL [Glucophage] 500 mg PO AC-SUPPER 05/13/17 01/08/18 Tolterodine Tartrate [Detrol LA] 4 mg PO DAILY 07/21/17 01/08/18 busPIRone HCl [Buspar] 5 mg PO DAILY 07/21/17 01/08/18 Cholecalciferol [Vitamin D3] 1,000 unit PO DAILY 08/09/17 01/08/18 Cranberry Fruit Extract [Cranberry] 500 mg PO DAILY 08/09/17 01/08/18 Cyanocobalamin (Vitamin B-12) 1,000 mcg PO DAILY 08/09/17 01/08/18 [Vitamin B-12] Triple Lecithin 1 tab PO DAILY 08/09/17 01/08/18 Ubidecarenone [Co Q-10] 100 mg PO DAILY 08/09/17 01/08/18 Melatonin 3 mg PO HS 10/13/17 01/08/18 Multivitamins, Thera [Multivitamin 1 tab PO DAILY 10/13/17 01/08/18 (formulary)] Atorvastatin [Lipitor] 10 mg PO DAILY 11/10/17 01/08/18 risperiDONE [RisperDAL] 0.5 mg PO BID 11/10/17 01/08/18 Previous Rx's Medication Instructions Recorded Carvedilol [Coreg] 12.5 mg PO BID 30 Days tablet 04/19/16 levETIRAcetam [Keppra] 500 mg PO Q12HR #60 tab 05/15/17 Aspirin 81 mg PO DAILY chew 07/23/17 Allergies Allergy/AdvReac Type Severity Reaction Status Date / Time Sulfa (Sulfonamide Allergy Unknown Unknown Verified 01/08/18 22:14 Antibiotics) egg AdvReac Diarrhea Verified 01/08/18 22:14 solifenacin [From Vesicare] AdvReac Confusion/s Verified 01/08/18 22:14 lindsey Review of Systems ROS Statement: Those systems with pertinent positive or pertinent negative responses have been documented in the HPI. ROS Other: All systems not noted in ROS Statement are negative. 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 History of Any Multi-Drug Resistant Organisms: None Reported Past Surgical History: Hysterectomy Additional Past Surgical History / Comment(s): Total hysterectomy, right hip arthroplasty, laser surgery of the right eye of her bleeding, bladder suspension , right elbow metal plate , gamma knife procedure for meningoma lt side of brain 03-11-17 Past Anesthesia/Blood Transfusion Reactions: No Reported Reaction Past Psychological History: Anxiety, Bipolar, Depression Smoking Status: Former smoker Past Alcohol Use History: None Reported Past Drug Use History: None Reported - Past Family History Father Family Medical History: No Reported History Additional Family Medical History / Comment(s): Father is alive in his 80s and is a smoker. Patient does not know his medical history. Mother Family Medical History: No Reported History Additional Family Medical History / Comment(s): Mother at age 79 from Alzheimer's dementia. Sister(s) Additional Family Medical History / Comment(s): She has one sister that is from heart failure. Patient does not have any brothers. Patient has 2 daughters that are 45 and 42 years of age with no major medical problems. General Exam Limitations: no limitations General appearance: alert, in no apparent distress, other (This is a well- developed, well-nourished elderly female patient in no acute distress. Vital signs upon presentation are temperature 97.7F, full 68, respirations 16, blood pressure 184/83. Pulse ox 97% on room air.) Eye exam: Present: normal appearance, PERRL, EOMI. Absent: scleral icterus, conjunctival injection, periorbital swelling ENT exam: Present: normal exam, normal oropharynx, mucous membranes moist Respiratory exam: Present: normal lung sounds bilaterally. Absent: respiratory distress, wheezes, rales, rhonchi, stridor Cardiovascular Exam: Present: regular rate, normal rhythm, normal heart sounds. Absent: systolic murmur, diastolic murmur, rubs, gallop, clicks GI/Abdominal exam: Present: soft, normal bowel sounds. Absent: distended, tenderness, guarding, rebound, rigid Extremities exam: Present: normal inspection, full ROM, normal capillary refill. Absent: tenderness, pedal edema, joint swelling, calf tenderness Neurological exam: Present: alert, oriented X3, CN II-XII intact Psychiatric exam: Present: normal affect, normal mood Skin exam: Present: warm, dry, intact, normal color. Absent: rash Course Vital Signs 01/08/18 01/09/18 22:02 00:15 Temperature 97.7 F 98.0 F Pulse Rate 68 68 Respiratory 16 16 Rate Blood Pressure 184/83 147/76 O2 Sat by Pulse 97 96 Oximetry Medical Decision Making - Medical Decision Making 72-year-old female patient presented to the emergency department today for evaluation of right shoulder pain. Patient describes no significant injury to the shoulder. Physical examination is unremarkable. She was able to move the arm and neck without any change to the pain. Neurovascular status is intact. This has been occurring intermittently over the last month. Labs reviewed, troponin and cardiac profile were normal. The patient did have an elevated blood glucose at 366. She does take Glucophage. Did discuss this finding with her and administered insulin. She is instructed to monitor blood sugars closely and to follow-up with her primary care physician for further evaluation regarding this. X-ray of the chest showed no acute cardiopulmonary process. X- ray of the right shoulder did show some spurring indicating mild osteoarthritis. These findings were also discussed with the patient. She does have an appointment with a painter maintenance Dr. guido stanford tomorrow. Return parameters were discussed in detail. She verbalizes understanding and agrees with this plan. - Lab Data Result diagrams: 01/08/18 23:03 01/08/18 23:03 Lab Results 01/08/18 01/08/18 01/08/18 Range/Units 23:03 23:03 23:03 WBC 6.7 (3.8-10.6) k/uL RBC 4.35 (3.80-5.40) m/uL Hgb 12.7 (11.4-16.0) gm/dL Hct 37.2 (34.0-46.0) % MCV 85.5 (80.0-100.0) fL MCH 29.3 (25.0-35.0) pg MCHC 34.3 (31.0-37.0) g/dL RDW 12.7 (11.5-15.5) % Plt Count 181 (150-450) k/uL Neutrophils % 59 % Lymphocytes % 27 % Monocytes % 8 % Eosinophils % 2 % Basophils % 1 % Neutrophils # 3.9 (1.3-7.7) k/uL Lymphocytes # 1.8 (1.0-4.8) k/uL Monocytes # 0.5 (0-1.0) k/uL Eosinophils # 0.1 (0-0.7) k/uL Basophils # 0.0 (0-0.2) k/uL Sodium 135 L (137-145) mmol/L Potassium 4.3 (3.5-5.1) mmol/L Chloride 99 (98-107) mmol/L Carbon Dioxide 24 (22-30) mmol/L Anion Gap 12 mmol/L BUN 21 H (7-17) mg/dL Creatinine 0.55 (0.52-1.04) mg/dL Est GFR (CKD-EPI)AfAm >90 (>60 ml/min/1.73 sqM) Est GFR (CKD-EPI)NonAf >90 (>60 ml/min/1.73 sqM) Glucose 366 H (74-99) mg/dL POC Glucose (mg/dL) (75-99) mg/dL POC Glu Roll Scale Man ID Calcium 9.7 (8.4-10.2) mg/dL Total Bilirubin 0.4 (0.2-1.3) mg/dL AST 17 (14-36) U/L ALT 21 (9-52) U/L Alkaline Phosphatase 160 H (38-126) U/L Total Creatine Kinase 66 (30-135) U/L CK-MB (CK-2) 0.7 (0.0-2.4) ng/mL CK-MB (CK-2) Rel Index 1.1 Troponin I <0.012 (0.000-0.034) ng/mL Total Protein 6.3 (6.3-8.2) g/dL Albumin 3.9 (3.5-5.0) g/dL Amylase 44 (30-110) U/L Lipase 83 (23-300) U/L 01/09/18 Range/Units 00:24 WBC (3.8-10.6) k/uL RBC (3.80-5.40) m/uL Hgb (11.4-16.0) gm/dL Hct (34.0-46.0) % MCV (80.0-100.0) fL MCH (25.0-35.0) pg MCHC (31.0-37.0) g/dL RDW (11.5-15.5) % Plt Count (150-450) k/uL Neutrophils % % Lymphocytes % % Monocytes % % Eosinophils % % Basophils % % Neutrophils # (1.3-7.7) k/uL Lymphocytes # (1.0-4.8) k/uL Monocytes # (0-1.0) k/uL Eosinophils # (0-0.7) k/uL Basophils # (0-0.2) k/uL Sodium (137-145) mmol/L Potassium (3.5-5.1) mmol/L Chloride (98-107) mmol/L Carbon Dioxide (22-30) mmol/L Anion Gap mmol/L BUN (7-17) mg/dL Creatinine (0.52-1.04) mg/dL Est GFR (CKD-EPI)AfAm (>60 ml/min/1.73 sqM) Est GFR (CKD-EPI)NonAf (>60 ml/min/1.73 sqM) Glucose (74-99) mg/dL POC Glucose (mg/dL) 342 H (75-99) mg/dL POC Glu Roll Scale Man ID Dalia Zepeda Calcium (8.4-10.2) mg/dL Total Bilirubin (0.2-1.3) mg/dL AST (14-36) U/L ALT (9-52) U/L Alkaline Phosphatase (38-126) U/L Total Creatine Kinase (30-135) U/L CK-MB (CK-2) (0.0-2.4) ng/mL CK-MB (CK-2) Rel Index Troponin I (0.000-0.034) ng/mL Total Protein (6.3-8.2) g/dL Albumin (3.5-5.0) g/dL Amylase (30-110) U/L Lipase (23-300) U/L - EKG Data -: EKG Interpreted by Me EKG Comments: EKG obtained at 223 shows normal sinus rhythm with a ventricular rate of 68, MS interval 140, QRS duration 76, QT 424, QTC 450. - Radiology Data Radiology results: report reviewed, image reviewed 3 views of the right shoulder obtained and shows spurring at the before meals joint. There is some spurring at the greater tuberosity of the humerus. I see no fracture. There is mild spurring of the humeral head. Impression by Dr. Vazquez shows mild osteoarthritis. No fracture seen. Two-view x-ray of the chest shows a heart is normal. There are old right-sided healed rib fractures. Thoracic aorta is atheromatous. Lungs are clear of infiltrate. There is no pleural effusion. There is spurring in the thoracic spine. Impression by Dr. Kenney shows no active cardiopulmonary disease. No change. Disposition Clinical Impression: Shoulder pain, Hyperglycemia Disposition: HOME SELF-CARE Condition: Good Instructions: Diabetic Hyperglycemia (ED), Shoulder Pain (ED) Additional Instructions: Keep your appointment with painter maintenance. Monitor blood sugars closely. Follow up with her primary care physician for further evaluation. Return here immediately for any new, worsening, or concerning symptoms. Is patient prescribed a controlled substance at d/c from ED?: No Referrals: Mani Hunt DO [Primary Care Provider] - 1-2 days Time of Disposition: 00:42
[2018-01-08 23:14] LABS: Basophils % (A) 1 %; Eosinophils # (A) 0.1 k/uL (0-0.7); Eosinophils % (A) 2 %; HCT 37.2 % (34.0-46.0); HGB 12.7 gm/dL (11.4-16.0); Lymphocytes # (A) 1.8 k/uL (1.0-4.8); Lymphocytes % (A) 27 %; MCH 29.3 pg (25.0-35.0); MCHC 34.3 g/dL (31.0-37.0); MCV 85.5 fL (80.0-100.0); Mean Platelet Volume 7.6; Monocytes # (A) 0.5 k/uL (0-1.0); Monocytes % (A) 8 %; Neutrophils # (A) 3.9 k/uL (1.3-7.7); Neutrophils % (A) 59 %; Platelet Count 181 k/uL (150-450); RBC 4.35 m/uL (3.80-5.40); RDW 12.7 % (11.5-15.5); WBC 6.7 k/uL (3.8-10.6)
[2018-01-08 23:23] LABS: ALT 21 U/L (9-52); AST 17 U/L (14-36); Albumin 3.9 g/dL (3.5-5.0); Alkaline Phosphatase 160 U/L (38-126); Amylase 44 U/L (30-110); Anion Gap 12 mmol/L; Blood Urea Nitrogen 21 mg/dL (7-17); Calcium 9.7 mg/dL (8.4-10.2); Carbon Dioxide 24 mmol/L (22-30); Chloride 99 mmol/L (98-107); Glucose 366 mg/dL (74-99); Lipase 83 U/L (23-300); Potassium 4.3 mmol/L (3.5-5.1); Sodium 135 mmol/L (137-145); Total Bilirubin 0.4 mg/dL (0.2-1.3); Total Protein 6.3 g/dL (6.3-8.2)
[2018-01-08 23:28] LABS: Creatine Kinase 66 U/L (30-135)
[2018-01-08 23:41] LABS: Creatine Kinase MB 0.7 ng/mL (0.0-2.4); Troponin I <0.012 ng/mL (0.000-0.034)
--- NOTE | 2018-01-08 23:58 | XR ---
EXAMINATION TYPE: XR shoulder complete RT DATE OF EXAM: 01/08/2018 COMPARISON: NONE HISTORY: Shoulder pain TECHNIQUE: 3 views FINDINGS: There is spurring at the AC joint. There is some spurring at the greater tuberosity of the humerus. I see no fracture. There is mild spurring of the humeral head. IMPRESSION: Mild osteoarthritis. No fracture seen.
[2018-01-09] MEDS ORDERED: INSULIN ASPART 100 UNIT/ML 1 ML 10 ML VIAL SQ STA (00:14)
[2018-01-09 00:17] VITALS: BP 147/76; TEMP 98
--- NOTE | 2018-01-09 00:23 | XR ---
EXAMINATION TYPE: XR chest 2V DATE OF EXAM: 01/09/2018 COMPARISON: 10/13/2017 HISTORY: Shoulder pain TECHNIQUE: Frontal and lateral views of the chest are obtained. FINDINGS: Heart is normal. There are old right-sided healed rib fractures. Thoracic aorta is atherom atous. Lungs are clear of infiltrate. There is no pleural effusion. There is spurring in the thoracic spine. IMPRESSION: No active cardiopulmonary disease. No change.
[2018-01-09 00:27] LABS: Glucose,Whole Blood 342 mg/dL (75-99)
[2018-01-09] MEDS ORDERED: KETOROLAC 30 MG/ML 1 ML VIAL IVP STA (00:31)
== END 2018-01-09 00:59 | disposition home or self-care (01) ==
LOC: EC 21:59
DX: M25.511 Pain in right shoulder (principal); E11.65 Type 2 diabetes mellitus with hyperglycemia; M19.011 Primary osteoarthritis, right shoulder; M54.2 Cervicalgia; I10 Essential (primary) hypertension; G40.909 Epilepsy, unspecified, not intractable, without status epilepticus; F31.9 Bipolar disorder, unspecified; F41.9 Anxiety disorder, unspecified; E78.5 Hyperlipidemia, unspecified; Z87.891 Personal history of nicotine dependence; Z87.440 Personal history of urinary (tract) infections; Z79.84 Long term (current) use of oral hypoglycemic drugs; Z79.899 Other long term (current) drug therapy; Z88.2 Allergy status to sulfonamides; Z91.012 Allergy to eggs; Z88.8 Allergy status to other drugs, medicaments and biological substances; Z86.73 Personal history of transient ischemic attack (TIA), and cerebral infarction without residual deficits; Z85.3 Personal history of malignant neoplasm of breast; Z96.641 Presence of right artificial hip joint
CPT/HCPCS: 36415; 71046; 80053; 82150; 82550; 82553; 83690; 84484; 85025; 93005; 96374; 99284

== ENCOUNTER → 2018-01-19 | Outpatient (CLI) | payer MEDICARE, OTHER, BC ==
--- NOTE | 2018-01-26 11:36 | MM ---
Reason for exam: additional evaluation requested from prior study. Last mammogram was performed 2 years and 1 month ago. History: Patient history of breast cancer. Excisional biopsy of the right breast, 2012. Taking other hormone beginning at age 67. Physical Findings: Nurse did not find any significant physical abnormalities on exam. MG 3D Diag Mammo W/Cad KASEY Bilateral CC and MLO view(s) were taken. Prior study comparison: December 07, 2015, mammogram, performed at [facility]. November 08, 2015, mammogram, performed at [facility]. May 23, 2015, mammogram, performed at [facility]. October 06, 2014, mammogram, performed at [facility]. There are scattered fibroglandular densities. Asymmetric breast tissue. Architectural distortion in the left breast 4-5cm from nipple middle position on MLO view. ASSESSMENT: Incomplete: need additional imaging evaluation, BI-RAD 0 RECOMMENDATION: Ultrasound of the left breast. [facility] will attempt to contact patient to return for ultrasound.
== END | disposition home or self-care (01) ==
LOC: RADMAMWWP 10:10
PROVIDERS: ATTEND Internal Medicine Hematology & Oncology
DX: Z08 Encounter for follow-up examination after completed treatment for malignant neoplasm (principal); I10 Essential (primary) hypertension; E11.9 Type 2 diabetes mellitus without complications; J44.9 Chronic obstructive pulmonary disease, unspecified; M25.562 Pain in left knee; M25.512 Pain in left shoulder; Z12.11 Encounter for screening for malignant neoplasm of colon; Z13.89 Encounter for screening for other disorder; Z79.891 Long term (current) use of opiate analgesic; Z85.3 Personal history of malignant neoplasm of breast
CPT/HCPCS: 77066; G0279; 77062

== ENCOUNTER → 2018-02-04 | Outpatient (CLI) | payer MEDICARE, OTHER, BC ==
--- NOTE | 2018-02-05 07:05 | USB ---
Reason for exam: additional evaluation requested from abnormal screening. History: Patient history of breast cancer. Excisional biopsy of the right breast, 2012. Taking other hormone beginning at age 67. Physical Findings: See breast exam on 01/19/18. US Breast LT Left complete breast ultrasound includes all four quadrants, the retroareolar region and axilla. Finding demonstrates no cystic or solid lesion seen. These results were verbally communicated with the patient and result sheet given to the patient on 02/04/18. ASSESSMENT: Negative, BI-RAD 1 RECOMMENDATION: Routine screening mammogram of both breasts in 1 year.
== END | disposition home or self-care (01) ==
LOC: RADUSWWP 15:40
PROVIDERS: ATTEND Internal Medicine Hematology & Oncology
DX: R92.8 Other abnormal and inconclusive findings on diagnostic imaging of breast (principal)

== ENCOUNTER 2018-03-03 12:33 | Emergency (ER) | payer MEDICARE, BC ==
[2018-03-03] MEDS ORDERED: LORazepam 2 MG/ML INJ IV STA (13:00)
--- NOTE | 2018-03-03 13:06 | ED ---
General Adult HPI - General Chief complaint: Neuro Symptoms/Deficit Stated complaint: Paresthesia Time Seen by Provider: 03/03/18 12:42 Source: patient, EMS, RN notes reviewed Mode of arrival: EMS Limitations: no limitations - History of Present Illness Initial comments: Patient is a pleasant 73-year-old female presenting to the emergency department for nausea. Patient states she felt nauseous this morning. Patient still feels somewhat nauseated however not as bad. Patient admits to feeling anxious. Patient states she felt tingly in both of her hands. Patient denies ever having any weakness. No confusion. Patient was questioned regarding weakness several times however patient still denies having any area of weakness. - Related Data Home Medications Medication Instructions Recorded Confirmed Anastrozole [Arimidex] 1 mg PO DAILY 12/22/16 03/03/18 metFORMIN HCL [Glucophage] 1,000 mg PO BID 12/22/16 03/03/18 Tolterodine Tartrate [Detrol LA] 4 mg PO DAILY 07/21/17 03/03/18 busPIRone HCl [Buspar] 5 mg PO BID 07/21/17 03/03/18 Melatonin 3 mg PO HS 10/13/17 03/03/18 risperiDONE [RisperDAL] 0.5 mg PO BID 11/10/17 03/03/18 Atorvastatin [Lipitor] 40 mg PO DAILY 03/03/18 03/03/18 Carvedilol [Coreg] 6.25 mg PO BID 03/03/18 03/03/18 Empagliflozin [Jardiance] 10 mg PO DAILY 03/03/18 03/03/18 Previous Rx's Medication Instructions Recorded levETIRAcetam [Keppra] 500 mg PO Q12HR #60 tab 05/15/17 Aspirin 81 mg PO DAILY chew 07/23/17 Allergies Allergy/AdvReac Type Severity Reaction Status Date / Time Sulfa (Sulfonamide Allergy Unknown Unknown Verified 03/03/18 13:23 Antibiotics) egg AdvReac Diarrhea Verified 03/03/18 13:23 solifenacin [From Vesicare] AdvReac Confusion/s Verified 03/03/18 13:23 haking Review of Systems ROS Statement: Those systems with pertinent positive or pertinent negative responses have been documented in the HPI. ROS Other: All systems not noted in ROS Statement are negative. Constitutional: Denies: fever Eyes: Denies: eye pain ENT: Denies: ear pain Respiratory: Denies: cough Cardiovascular: Denies: chest pain Endocrine: Denies: fatigue Gastrointestinal: Reports: nausea Genitourinary: Denies: dysuria Musculoskeletal: Denies: joint swelling Skin: Denies: rash Neurological: Reports: paresthesias. Denies: weakness, confusion Past Medical History Past Medical History: Cancer, CVA/TIA, Diabetes Mellitus, GERD/Reflux, Hyperlipidemia, Hypertension, Seizure Disorder Additional Past Medical History / Comment(s): Intracranial bleed July 2015, overactive bladder, multi UTI- ecoli, Breast cancer,meningoma lt side of brain - had gamma knife procedure march 11 2017, RT bx,lumpectomy, lymph node removal." had seizure like symptoms on several ocassions but never got a clear answer if it was". History of Any Multi-Drug Resistant Organisms: None Reported Past Surgical History: Hysterectomy Additional Past Surgical History / Comment(s): Total hysterectomy, right hip arthroplasty, laser surgery of the right eye of her bleeding, bladder suspension , right elbow metal plate , gamma knife procedure for meningoma lt side of brain 03-11-17 Past Anesthesia/Blood Transfusion Reactions: No Reported Reaction Past Psychological History: Anxiety, Bipolar, Depression Smoking Status: Former smoker Past Alcohol Use History: None Reported Past Drug Use History: None Reported - Past Family History Father Family Medical History: No Reported History Additional Family Medical History / Comment(s): Father is alive in his 80s and is a smoker. Patient does not know his medical history. Mother Family Medical History: No Reported History Additional Family Medical History / Comment(s): Mother at age 79 from Alzheimer's dementia. Sister(s) Additional Family Medical History / Comment(s): She has one sister that is from heart failure. Patient does not have any brothers. Patient has 2 daughters that are 45 and 42 years of age with no major medical problems. General Exam Limitations: no limitations General appearance: alert, in no apparent distress Head exam: Present: atraumatic Eye exam: Present: normal appearance, PERRL, EOMI. Absent: nystagmus ENT exam: Present: normal oropharynx Neck exam: Present: normal inspection Respiratory exam: Present: normal lung sounds bilaterally. Absent: chest wall tenderness Cardiovascular Exam: Present: regular rate, normal rhythm GI/Abdominal exam: Present: soft. Absent: tenderness Extremities exam: Present: normal inspection Neurological exam: Present: alert, oriented X3, CN II-XII intact. Absent: motor sensory deficit Expanded Neurological exam: Present: protecting the airway Patient oriented to: Present: person, place, time Speech: Present: fluid speech Cranial nerves: EOM's Intact: Normal, Facial Sensation: Normal Cerebellar function: Finger to Nose: Normal Sensory exam: Upper Extremity Light Touch: Normal, Lower Extremity Light Touch: Normal Motor strength exam: RUE: 5, LUE: 5, RLE: 5, LLE: 5 Eye Response: (4) open spontaneously Motor Response: (6) obeys commands Verbal Response: (5) oriented Psychiatric exam: Present: anxious (Patient does appear mildly anxious) Skin exam: Present: normal color Course Vital Signs 03/03/18 03/03/18 03/03/18 12:38 13:41 14:45 Temperature 98.8 F Pulse Rate 65 104 H 66 Respiratory 16 20 18 Rate Blood Pressure 166/79 158/72 136/60 O2 Sat by Pulse 97 100 97 Oximetry - Reevaluation(s) Reevaluation #1: 03/03/18 13:12 Case was discussed with Dr. Duvall who states that there was history of dropping something from the right hand. In addition patient was limping earlier. He states patient did have some difficulty with gait at the office. 03/03/18 14:43 Call was received from radiology recommending patient have MRI done emergently. Order was placed and MRI was notified. 03/03/18 15:03 Patient reevaluated and resting comfortably in bed. Patient and were updated on results at this point and plan. MRI was called again and is able to get patient up on the table and 3:15. Patient and are made aware of probable transfer following MRI. Patient has had previous care at [facility]. They do request transfer there if patient gets transfer. They are made aware that it is usually advised to go to the closest facility with potential to take care of the patient, in case of possible deterioration. Despite this they refused and would like to go to [facility] where they have previously had care and her physician is at. 03/03/18 15:10 Case was discussed with [facility] emergency physician Dr. Mcmanus, who will accept transfer following MRI. is updated. EKG Findings - EKG Comments: EKG Findings:: Normal sinus rhythm 65. MI 162. QRS 76. QT 436. QTc 453. Normal axis. Normal QRS. No acute ST change Medical Decision Making - Lab Data Result diagrams: 03/03/18 13:09 03/03/18 13:09 Lab Results 03/03/18 03/03/18 03/03/18 Range/Units 13:09 13:09 13:09 WBC 7.6 (3.8-10.6) k/uL RBC 4.03 (3.80-5.40) m/uL Hgb 11.8 (11.4-16.0) gm/dL Hct 33.9 L (34.0-46.0) % MCV 84.2 (80.0-100.0) fL MCH 29.2 (25.0-35.0) pg MCHC 34.6 (31.0-37.0) g/dL RDW 12.5 (11.5-15.5) % Plt Count 339 (150-450) k/uL Neutrophils % 75 % Lymphocytes % 14 % Monocytes % 5 % Eosinophils % 2 % Basophils % 1 % Neutrophils # 5.8 (1.3-7.7) k/uL Lymphocytes # 1.1 (1.0-4.8) k/uL Monocytes # 0.4 (0-1.0) k/uL Eosinophils # 0.2 (0-0.7) k/uL Basophils # 0.0 (0-0.2) k/uL PT 10.6 (9.0-12.0) sec INR 1.1 (<1.2) APTT 21.4 L (22.0-30.0) sec Sodium 142 (137-145) mmol/L Potassium 4.5 (3.5-5.1) mmol/L Chloride 103 (98-107) mmol/L Carbon Dioxide 23 (22-30) mmol/L Anion Gap 16 mmol/L BUN 17 (7-17) mg/dL Creatinine 0.69 (0.52-1.04) mg/dL Est GFR (CKD-EPI)AfAm >90 (>60 ml/min/1.73 sqM) Est GFR (CKD-EPI)NonAf 88 (>60 ml/min/1.73 sqM) Glucose 147 H (74-99) mg/dL Calcium 9.7 (8.4-10.2) mg/dL Total Bilirubin 0.5 (0.2-1.3) mg/dL AST 24 (14-36) U/L ALT 29 (9-52) U/L Alkaline Phosphatase 186 H (38-126) U/L Total Protein 7.2 (6.3-8.2) g/dL Albumin 4.0 (3.5-5.0) g/dL Urine Color Urine Appearance (Clear) Urine pH (5.0-8.0) Ur Specific [place] (1.001-1.035) Urine Protein (Negative) Urine Glucose (UA) (Negative) Urine Ketones (Negative) Urine Blood (Negative) Urine Nitrite (Negative) Urine Bilirubin (Negative) Urine Urobilinogen (<2.0) mg/dL Ur Leukocyte Esterase (Negative) Urine RBC (0-5) /hpf Urine WBC (0-5) /hpf Urine WBC Clumps (None) /hpf Urine Bacteria (None) /hpf Urine Mucus (None) /hpf 03/03/18 Range/Units 14:36 WBC (3.8-10.6) k/uL RBC (3.80-5.40) m/uL Hgb (11.4-16.0) gm/dL Hct (34.0-46.0) % MCV (80.0-100.0) fL MCH (25.0-35.0) pg MCHC (31.0-37.0) g/dL RDW (11.5-15.5) % Plt Count (150-450) k/uL Neutrophils % % Lymphocytes % % Monocytes % % Eosinophils % % Basophils % % Neutrophils # (1.3-7.7) k/uL Lymphocytes # (1.0-4.8) k/uL Monocytes # (0-1.0) k/uL Eosinophils # (0-0.7) k/uL Basophils # (0-0.2) k/uL PT (9.0-12.0) sec INR (<1.2) APTT (22.0-30.0) sec Sodium (137-145) mmol/L Potassium (3.5-5.1) mmol/L Chloride (98-107) mmol/L Carbon Dioxide (22-30) mmol/L Anion Gap mmol/L BUN (7-17) mg/dL Creatinine (0.52-1.04) mg/dL Est GFR (CKD-EPI)AfAm (>60 ml/min/1.73 sqM) Est GFR (CKD-EPI)NonAf (>60 ml/min/1.73 sqM) Glucose (74-99) mg/dL Calcium (8.4-10.2) mg/dL Total Bilirubin (0.2-1.3) mg/dL AST (14-36) U/L ALT (9-52) U/L Alkaline Phosphatase (38-126) U/L Total Protein (6.3-8.2) g/dL Albumin (3.5-5.0) g/dL Urine Color Light Yellow Urine Appearance Cloudy H (Clear) Urine pH 5.0 (5.0-8.0) Ur Specific [place] 1.017 (1.001-1.035) Urine Protein Negative (Negative) Urine Glucose (UA) 4+ H (Negative) Urine Ketones Negative (Negative) Urine Blood Trace H (Negative) Urine Nitrite Negative (Negative) Urine Bilirubin Negative (Negative) Urine Urobilinogen <2.0 (<2.0) mg/dL Ur Leukocyte Esterase Large H (Negative) Urine RBC 6 H (0-5) /hpf Urine WBC >182 H (0-5) /hpf Urine WBC Clumps Few H (None) /hpf Urine Bacteria Rare H (None) /hpf Urine Mucus Rare H (None) /hpf - Radiology Data Radiology results: report reviewed (Computed tomography scan of the brain shows abnormal attenuation left frontal/parietal. Also hyperdensity high parietal lobe. Suggestive of small hemorrhage measuring 5 mm. Possible hemorrhagic neoplasm versus subacute infarct with hemorrhage. Recommend MRI. Also there is enhancing mass likely meningioma left posterior fossa.), image reviewed (Two- view chest x-ray shows no acute process.) Disposition Clinical Impression: Intracranial hemorrhage Disposition: OTHER INSTITUTION NOT DEFINED Is patient prescribed a controlled substance at d/c from ED?: No Referrals: Mani Hunt DO [Primary Care Provider] - 1-2 days - Out of Hospital Transfer - Req. Specs Out of Hospital Transfer - Requested Specifics: Other Emergency Center
[2018-03-03 13:25] LABS: Basophils % (A) 1 %; Eosinophils # (A) 0.2 k/uL (0-0.7); Eosinophils % (A) 2 %; HCT 33.9 % (34.0-46.0); HGB 11.8 gm/dL (11.4-16.0); Lymphocytes # (A) 1.1 k/uL (1.0-4.8); Lymphocytes % (A) 14 %; MCH 29.2 pg (25.0-35.0); MCHC 34.6 g/dL (31.0-37.0); MCV 84.2 fL (80.0-100.0); Mean Platelet Volume 6.7; Monocytes # (A) 0.4 k/uL (0-1.0); Monocytes % (A) 5 %; Neutrophils # (A) 5.8 k/uL (1.3-7.7); Neutrophils % (A) 75 %; Platelet Count 339 k/uL (150-450); RBC 4.03 m/uL (3.80-5.40); RDW 12.5 % (11.5-15.5); WBC 7.6 k/uL (3.8-10.6)
[2018-03-03 13:34] LABS: ALT 29 U/L (9-52); AST 24 U/L (14-36); Alkaline Phosphatase 186 U/L (38-126); Anion Gap 16 mmol/L; Blood Urea Nitrogen 17 mg/dL (7-17); Calcium 9.7 mg/dL (8.4-10.2); Carbon Dioxide 23 mmol/L (22-30); Chloride 103 mmol/L (98-107); Glucose 147 mg/dL (74-99); Potassium 4.5 mmol/L (3.5-5.1); Sodium 142 mmol/L (137-145); Total Bilirubin 0.5 mg/dL (0.2-1.3); Total Protein 7.2 g/dL (6.3-8.2)
[2018-03-03 13:44] LABS: INR 1.1 (<1.2); Partial Thromboplastin Time 21.4 sec (22.0-30.0); Prothrombin Time 10.6 sec (9.0-12.0)
--- NOTE | 2018-03-03 14:19 | XR ---
EXAMINATION TYPE: XR chest 2V DATE OF EXAM: 03/03/2018 COMPARISON: Chest x-ray January 08, 2018 HISTORY: Weakness with bilateral hand numbness TECHNIQUE: Frontal and lateral views of the chest are obtained. FINDINGS: There is no focal air space opacity, pleural effusion, or pneumothorax seen. The cardiac silhouette size remains enlarged. The osseous structures remain demineralized. Multiple old right p osterior lateral rib fractures are redemonstrated. Bridging spurs in the thoracic spine are redemonst rated on lateral view IMPRESSION: Cardiomegaly and chronic changes without acute pulmonary process. No significant change from prior.
--- NOTE | 2018-03-03 14:21 | CT ---
EXAMINATION TYPE: CT brain wo/w con DATE OF EXAM: 03/03/2018 COMPARISON: 08/11/2017 HISTORY: Patient complains of bilateral hand numbness and right arm weakness. CT DLP: 2113 mGycm Automated exposure control for dose reduction was used. CONTRAST: CT scan of the head is performed without and with IV Contrast, patient injected with 100 mL of Isovue 300. FINDINGS: There is moderate generalized degenerative change. There is a 5 mm hyperdensity in the left parietal lobe on noncontrast imaging Periventricular low attenuation is compatible with remote microvascular i schemia. The large area of edema within the left frontal and parietal lobes. There is dolichoectasia of the vertebrobasilar system. Within the left CPA angle there is a enhancing mass with a mild compression of the cerebellum measuri ng 1.2 cm. A gyral enhancement within the left upper parietal lobe noted. Intracranial atherosclerotic changes are noted. Hyperostosis of the frontal bone is noted. IMPRESSION: 1. There is abnormal attenuation involving the left frontal and parietal lobe with slight mass effect upon the frontal horn of the left lateral ventricle. There also is hyperdensity on the noncontrast e xam in the high parietal lobe on the left suggestive of a small area of hemorrhage measuring 5 mm. Th ere is some ill-defined enhancement which may be gyral appears more rim-like on the sagittal and ari nal image. Differential diagnosis would include hemorrhagic neoplasm as well as subacute infarct with hemorrhage. Recommend MRI. 2. Within the posterior fossa on the left near the CPA angle there is a 1.2 cm enhancing mass most ty pical of a meningioma. This is stable from the MRI of 08/11/2017.
[2018-03-03 14:46] VITALS: RESP 18
[2018-03-03 14:58] LABS: Appearance,Urine Cloudy (Clear); Bacteria,Urine Rare /hpf; Bilirubin,Urine Negative (Negative); Blood,Urine Trace (Negative); Color,Urine Light Yellow; Glucose,Urine (UA) 4+ (Negative); Ketones,Urine Negative (Negative); Leukocyte Esterase,Urine Large (Negative); Mucus,Urine Rare /hpf; Nitrite,Urine Negative (Negative); Protein,Urine Negative (Negative); RBC,Urine 6 /hpf (0-5); Specific Gravity,Urine 1.017 (1.001-1.035); Urobilinogen,Urine <2.0 mg/dL (<2.0); WBC,Urine >182 /hpf (0-5)
--- NOTE | 2018-03-03 16:12 | MR ---
EXAMINATION TYPE: MR brain wo/w con DATE OF EXAM: 03/03/2018 COMPARISON: CT brain 03/03/2018, MRI brain 08/11/2017 HISTORY: Weakness, hx gamma knife tumor removal, abn CT CONTRAST: Performed utilizing 7 mL intravenous Gadavist gadolinium contrast. TECHNIQUE: Multiplanar, multiecho imaging on a 3.0 Sana magnet is performed through the brain. Stud y is performed within 24 hours of arrival to the hospital. The craniovertebral junction is normal. The pituitary is normal. Diffusion-weighted imaging is performed. There is increased signal within the extra-axial mass at th e left cerebellar pontine angle. Suspicious hyperintensity in the left occipital parietal region is n ot evident on diffusion.. The left cerebellar pontine angle mass abutting the temporal bone is in the extra-axial space. This h as strong enhancement and mild mass effect on the adjacent left cerebellum. No edema within the cereb ellum is evident adjacent. Findings are compatible with a meningioma. Findings were present in 2016 MRI brain. This currently measures 1.4 x 0.9 cm which is stable in size from comparison. There is new extensive white matter changes to the left parietal-occipital region white matter. The c ortex appears preserved. There is some mild mass effect on the occipital horn of the lateral ventricl e. Some mild effacement of the adjacent sulci is present. This area surrounds an irregular ring enhan cing mass measuring approximately 2.0 transverse by 2.3 cm AP by 2.0 cm in craniocaudal dimension. Th is is in the location of a previous hypointense area on August 04, 2017 MRI. Could this be the loca tion of the gamma knife surgery? Correlate with the timing of surgery. Recurrence at this level is a consideration. No additional suspicious areas of enhancement are evident. Corpus callosum remains midline. No midlin e shift is evident. Mild mass effect due to the vasogenic edema in left parietal-occipital region is present. Otherwise, ventricles are normal. No temporal horn dilatation is evident. No hydronephrosis is evident. IMPRESSIONS: 1. Ring-enhancing lesion with extensive vasogenic edema in the left parietal-occipital region. This i s likely the gamma knife surgery site. Differential could include postsurgical change, correlate with the timing of the gamma knife localization. Recurrent enhancing lesion could be considered. Infectio n is not excluded from the differential. 2. Vasogenic edema and left parietal-occipital region has local mass effect on the adjacent sulci and mild mass effect on the occipital horn lateral ventricle. No midline shift or tentorial herniation i s evident. 3. Stable meningioma left cerebellar pontine angle.
[2018-03-03 16:25] VITALS: BP 163/84; PULSE 63
[2018-03-03 16:45] VITALS: TEMP 97.2
== END 2018-03-03 16:52 | disposition other institution (70) ==
LOC: EC 12:33
DX: I62.9 Nontraumatic intracranial hemorrhage, unspecified (principal); E11.9 Type 2 diabetes mellitus without complications; E78.5 Hyperlipidemia, unspecified; I10 Essential (primary) hypertension; F41.9 Anxiety disorder, unspecified; F31.9 Bipolar disorder, unspecified; Z85.3 Personal history of malignant neoplasm of breast; Z86.73 Personal history of transient ischemic attack (TIA), and cerebral infarction without residual deficits; Z90.710 Acquired absence of both cervix and uterus; Z96.641 Presence of right artificial hip joint; Z87.891 Personal history of nicotine dependence; Z98.890 Other specified postprocedural states; Z79.84 Long term (current) use of oral hypoglycemic drugs; Z79.899 Other long term (current) drug therapy; Z88.2 Allergy status to sulfonamides; Z88.8 Allergy status to other drugs, medicaments and biological substances; Z91.012 Allergy to eggs
CPT/HCPCS: 36415; 93005; 80053; 85025; 85610; 85730; 81001; 71046; 70470; 70553; 99285; 96374; J2060; A9581; Q9967

== ENCOUNTER 2018-06-05 22:20 | Inpatient (IN) | payer MEDICARE, BC ==
[2018-06-05] MEDS ORDERED: SODIUM CHLORIDE 0.9% 1,000 ML IV STA (22:21)
[2018-06-05] MEDS ORDERED: LORazepam 2 MG/ML INJ IV STA (22:21)
[2018-06-05] MEDS ORDERED: ONDANSETRON 4 MG/2 ML VIAL IVP STA (22:21)
[2018-06-05] MEDS ORDERED: levETIRAcetam IV 1,000 MG in SALINE 1 100ML.BAG IVPB STA (22:21)
[2018-06-05] MEDS ORDERED: DEXAMETHASONE SOD PHOSPHATE 10 MG/ML 1 ML VIAL IV STA (22:27)
[2018-06-05 22:57] LABS: Glucose,Whole Blood 155 mg/dL (75-99)
[2018-06-05 23:34] LABS: Appearance,Urine Cloudy (Clear); Bacteria,Urine Occasional /hpf; Bilirubin,Urine Negative (Negative); Blood,Urine Negative (Negative); Color,Urine Light Yellow; Glucose,Urine (UA) 4+ (Negative); Ketones,Urine Negative (Negative); Leukocyte Esterase,Urine Large (Negative); Mucus,Urine Occasional /hpf; Nitrite,Urine Positive (Negative); Protein,Urine Trace (Negative); RBC,Urine 3 /hpf (0-5); Specific Gravity,Urine 1.015 (1.001-1.035); Urobilinogen,Urine <2.0 mg/dL (<2.0); WBC,Urine 161 /hpf (0-5)
[2018-06-05 23:46] LABS: Basophils # (A) 0.1 k/uL (0-0.2); Basophils % (A) 1 %; Eosinophils # (A) 0.2 k/uL (0-0.7); Eosinophils % (A) 3 %; HCT 38.3 % (34.0-46.0); HGB 12.1 gm/dL (11.4-16.0); Lymphocytes # (A) 1.2 k/uL (1.0-4.8); Lymphocytes % (A) 16 %; MCH 28.5 pg (25.0-35.0); MCHC 31.5 g/dL (31.0-37.0); MCV 90.3 fL (80.0-100.0); Mean Platelet Volume 6.2; Monocytes # (A) 0.5 k/uL (0-1.0); Monocytes % (A) 7 %; Neutrophils # (A) 5.5 k/uL (1.3-7.7); Neutrophils % (A) 73 %; Platelet Count 169 k/uL (150-450); RBC 4.25 m/uL (3.80-5.40); RDW 13.3 % (11.5-15.5); WBC 7.6 k/uL (3.8-10.6)
--- NOTE | 2018-06-05 23:46 | CT ---
EXAMINATION TYPE: CT brain wo con DATE OF EXAM: 06/05/2018 COMPARISON: 03/03/2018 HISTORY: WEAKNESS CT DLP: 1012.70 mGycm Automated exposure control for dose reduction was used. FINDINGS: There is diffuse cerebral cortical atrophy. There is no mass effect nor midline shift. There is no si gn of intracranial hemorrhage. There is irregular hypodensity in the left parietal lobe consistent wi th old cortical infarct. Calvarium is intact. There is 8mm area of higher attenuation at the left par ietal convexity that could be parenchymal calcification. IMPRESSION: CEREBRAL ATROPHY. OLD LEFT PARIETAL 3 CM AREA OF ENCEPHALOMALACIA. THERE IS LESS WHITE MATTER EDEMA C OMPARED TO OLD EXAM. Small focus of calcification is unchanged. This could be sequela of arteriovenou s malformation. I see no underlying mass.
[2018-06-05 23:54] LABS: ALT 20 U/L (9-52); AST 21 U/L (14-36); Albumin 3.7 g/dL (3.5-5.0); Alkaline Phosphatase 155 U/L (38-126); Blood Urea Nitrogen 19 mg/dL (7-17); Calcium 8.9 mg/dL (8.4-10.2); Carbon Dioxide 22 mmol/L (22-30); Chloride 100 mmol/L (98-107); Glucose 168 mg/dL (74-99); Magnesium 1.6 mg/dL (1.6-2.3); Phosphorus 4.4 mg/dL (2.5-4.5); Total Bilirubin 0.4 mg/dL (0.2-1.3); Total Protein 6.9 g/dL (6.3-8.2)
[2018-06-05 23:56] LABS: Partial Thromboplastin Time 22.3 sec (22.0-30.0); Prothrombin Time 10.1 sec (9.0-12.0)
[2018-06-06 00:18] LABS: Anion Gap 12 mmol/L; Potassium 4.4 mmol/L (3.5-5.1); Sodium 134 mmol/L (137-145)
[2018-06-06 00:30] LABS: Creatine Kinase 47 U/L (30-135)
--- NOTE | 2018-06-06 00:31 | ED ---
General Adult HPI - General Chief complaint: Altered Mental Status Stated complaint: Seizure Time Seen by Provider: 06/05/18 22:21 Source: patient, EMS, RN notes reviewed, old records reviewed Mode of arrival: EMS Limitations: altered mental status - History of Present Illness Initial comments: this is a 73-year-old female the ER for evaluation patient was essay for evaluation regarding altered mental state. History. From EMS as well as family , patient is having continued seizures. Patient has no history of CVA with brain metastasis. Again at this time patient unable to give history secondary to postictal state. Per EMS patient was having simple partial seizures - Related Data Home Medications Medication Instructions Recorded Confirmed Anastrozole [Arimidex] 1 mg PO DAILY 12/22/16 06/05/18 Tolterodine Tartrate [Detrol LA] 4 mg PO DAILY 07/21/17 06/05/18 Melatonin 3 mg PO HS 10/13/17 06/05/18 risperiDONE [RisperDAL] 0.5 mg PO DAILY 11/10/17 06/05/18 Atorvastatin [Lipitor] 40 mg PO DAILY 03/03/18 06/05/18 Carvedilol [Coreg] 25 mg PO BID 03/03/18 06/05/18 Empagliflozin [Jardiance] 10 mg PO DAILY 03/03/18 06/05/18 Cholecalciferol [Vitamin D3] 1,000 unit PO DAILY 06/05/18 06/05/18 Cranberry Fruit Extract [Cranberry] 200 mg PO DAILY 06/05/18 06/05/18 Cyanocobalamin (Vitamin B-12) 1,000 mcg PO DAILY 06/05/18 06/05/18 [Vitamin B-12] Multivitamins, Thera [Multivitamin 1 tab PO DAILY 06/05/18 06/05/18 (formulary)] Ubidecarenone [Co Q-10] 100 mg PO DAILY 06/05/18 06/05/18 busPIRone HCl [Buspar] 5 mg PO DAILY 06/05/18 06/05/18 risperiDONE [RisperDAL] 1.5 mg PO HS 06/05/18 06/05/18 metFORMIN HCL [Glucophage] 500 mg PO BID 06/06/18 06/06/18 Previous Rx's Medication Instructions Recorded levETIRAcetam [Keppra] 500 mg PO Q12HR #60 tab 05/15/17 Aspirin 81 mg PO DAILY chew 07/23/17 Allergies Allergy/AdvReac Type Severity Reaction Status Date / Time Sulfa (Sulfonamide Allergy Unknown Unknown Verified 06/05/18 23:13 Antibiotics) egg AdvReac Diarrhea Verified 06/05/18 23:13 solifenacin [From Vesicare] AdvReac Confusion/s Verified 06/05/18 23:13 lindsey Review of Systems ROS Statement: Those systems with pertinent positive or pertinent negative responses have been documented in the HPI. ROS Other: All systems not noted in ROS Statement are negative. 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 History of Any Multi-Drug Resistant Organisms: None Reported Past Surgical History: Hysterectomy Additional Past Surgical History / Comment(s): Total hysterectomy, right hip arthroplasty, laser surgery of the right eye of her bleeding, bladder suspension , right elbow metal plate , gamma knife procedure for meningoma lt side of brain 03-11-17 Past Anesthesia/Blood Transfusion Reactions: No Reported Reaction Past Psychological History: Anxiety, Bipolar, Depression Smoking Status: Former smoker Past Alcohol Use History: None Reported Past Drug Use History: None Reported - Past Family History Father Family Medical History: No Reported History Additional Family Medical History / Comment(s): Father is alive in his 80s and is a smoker. Patient does not know his medical history. Mother Family Medical History: No Reported History Additional Family Medical History / Comment(s): Mother at age 79 from Alzheimer's dementia. Sister(s) Additional Family Medical History / Comment(s): She has one sister that is from heart failure. Patient does not have any brothers. Patient has 2 daughters that are 45 and 42 years of age with no major medical problems. General Exam Limitations: altered mental status, physical limitation General appearance: alert, lethargic, obtunded Head exam: Present: atraumatic, normocephalic, normal inspection Eye exam: Present: normal appearance, PERRL, EOMI. Absent: scleral icterus, conjunctival injection, periorbital swelling ENT exam: Present: normal exam, mucous membranes moist Neck exam: Present: normal inspection. Absent: tenderness, meningismus, lymphadenopathy Respiratory exam: Present: normal lung sounds bilaterally. Absent: respiratory distress, wheezes, rales, rhonchi, stridor Cardiovascular Exam: Present: regular rate, normal rhythm, normal heart sounds. Absent: systolic murmur, diastolic murmur, rubs, gallop, clicks GI/Abdominal exam: Present: soft, normal bowel sounds. Absent: distended, tenderness, guarding, rebound, rigid Extremities exam: Present: normal inspection, full ROM, normal capillary refill. Absent: tenderness, pedal edema, joint swelling, calf tenderness Back exam: Present: normal inspection Neurological exam: Present: alert, oriented X3, CN II-XII intact Psychiatric exam: Present: normal affect, normal mood Skin exam: Present: warm, dry, intact, normal color. Absent: rash Course Vital Signs 06/05/18 06/05/18 06/05/18 22:37 23:13 23:29 Temperature 97.4 F L Pulse Rate 92 97 87 Respiratory 18 17 18 Rate Blood Pressure 195/99 181/84 161/74 O2 Sat by Pulse 97 96 95 Oximetry 06/06/18 06/06/18 00:35 00:53 Temperature 97.4 F L Pulse Rate 83 83 Respiratory 17 18 Rate Blood Pressure 183/93 159/88 O2 Sat by Pulse 96 96 Oximetry - Reevaluation(s) Reevaluation #1: she does have cessation of seizure-like activity here in the ER EKG Findings - EKG Comments: EKG Findings:: EKG shows sinus rhythm rate of 81, AL 162, QRS 80, QTC 432 Medical Decision Making - Medical Decision Making 73 female the ER with end-stage CA with brain metastases. Patient coming with seizures recurrent seizures. Focal seizures, this point feeling activity as ceased. Patient be given for neurological evaluation - Lab Data Result diagrams: 06/08/18 06:42 06/08/18 06:42 Lab Results 06/05/18 06/05/18 06/05/18 Range/Units 22:32 23:06 23:21 WBC 7.6 (3.8-10.6) k/uL RBC 4.25 (3.80-5.40) m/uL Hgb 12.1 (11.4-16.0) gm/dL Hct 38.3 (34.0-46.0) % MCV 90.3 (80.0-100.0) fL MCH 28.5 (25.0-35.0) pg MCHC 31.5 (31.0-37.0) g/dL RDW 13.3 (11.5-15.5) % Plt Count 169 (150-450) k/uL Neutrophils % 73 % Lymphocytes % 16 % Monocytes % 7 % Eosinophils % 3 % Basophils % 1 % Neutrophils # 5.5 (1.3-7.7) k/uL Lymphocytes # 1.2 (1.0-4.8) k/uL Monocytes # 0.5 (0-1.0) k/uL Eosinophils # 0.2 (0-0.7) k/uL Basophils # 0.1 (0-0.2) k/uL PT (9.0-12.0) sec INR (<1.2) APTT (22.0-30.0) sec Sodium (137-145) mmol/L Potassium (3.5-5.1) mmol/L Chloride (98-107) mmol/L Carbon Dioxide (22-30) mmol/L Anion Gap mmol/L BUN (7-17) mg/dL Creatinine (0.52-1.04) mg/dL Est GFR (CKD-EPI)AfAm (>60 ml/min/1.73 sqM) Est GFR (CKD-EPI)NonAf (>60 ml/min/1.73 sqM) Glucose (74-99) mg/dL POC Glucose (mg/dL) 155 H (75-99) mg/dL POC Glu [employer] Keegan [address] Glu mg/dL Hemoglobin A1c (4.0-6.0) % Plasma Lactic Acid Rony (0.7-2.0) mmol/L Calcium (8.4-10.2) mg/dL Phosphorus (2.5-4.5) mg/dL Magnesium (1.6-2.3) mg/dL Total Bilirubin (0.2-1.3) mg/dL AST (14-36) U/L ALT (9-52) U/L Alkaline Phosphatase (38-126) U/L Total Creatine Kinase (30-135) U/L CK-MB (CK-2) (0.0-2.4) ng/mL CK-MB (CK-2) Rel Index Troponin I (0.000-0.034) ng/mL Total Protein (6.3-8.2) g/dL Albumin (3.5-5.0) g/dL Urine Color Light Yellow Urine Appearance Cloudy H (Clear) Urine pH 6.0 (5.0-8.0) Ur Specific [place] 1.015 (1.001-1.035) Urine Protein Trace H (Negative) Urine Glucose (UA) 4+ H (Negative) Urine Ketones Negative (Negative) Urine Blood Negative (Negative) Urine Nitrite Positive H (Negative) Urine Bilirubin Negative (Negative) Urine Urobilinogen <2.0 (<2.0) mg/dL Ur Leukocyte Esterase Large H (Negative) Urine RBC 3 (0-5) /hpf Urine WBC 161 H (0-5) /hpf Urine WBC Clumps Many H (None) /hpf Urine Bacteria Occasional H (None) /hpf Urine Mucus Occasional H (None) /hpf 06/05/18 06/05/18 06/05/18 Range/Units 23:21 23:21 23:21 WBC (3.8-10.6) k/uL RBC (3.80-5.40) m/uL Hgb (11.4-16.0) gm/dL Hct (34.0-46.0) % MCV (80.0-100.0) fL MCH (25.0-35.0) pg MCHC (31.0-37.0) g/dL RDW (11.5-15.5) % Plt Count (150-450) k/uL Neutrophils % % Lymphocytes % % Monocytes % % Eosinophils % % Basophils % % Neutrophils # (1.3-7.7) k/uL Lymphocytes # (1.0-4.8) k/uL Monocytes # (0-1.0) k/uL Eosinophils # (0-0.7) k/uL Basophils # (0-0.2) k/uL PT 10.1 (9.0-12.0) sec INR 1.0 (<1.2) APTT 22.3 (22.0-30.0) sec Sodium 134 L (137-145) mmol/L Potassium 4.4 (3.5-5.1) mmol/L Chloride 100 (98-107) mmol/L Carbon Dioxide 22 (22-30) mmol/L Anion Gap 12 mmol/L BUN 19 H (7-17) mg/dL Creatinine 0.57 (0.52-1.04) mg/dL Est GFR (CKD-EPI)AfAm >90 (>60 ml/min/1.73 sqM) Est GFR (CKD-EPI)NonAf >90 (>60 ml/min/1.73 sqM) Glucose 168 H (74-99) mg/dL POC Glucose (mg/dL) (75-99) mg/dL POC Glu [employer] ID Estimated [address] Glu mg/dL Hemoglobin A1c (4.0-6.0) % Plasma Lactic Acid Rony 1.2 (0.7-2.0) mmol/L Calcium 8.9 (8.4-10.2) mg/dL Phosphorus 4.4 (2.5-4.5) mg/dL Magnesium 1.6 (1.6-2.3) mg/dL Total Bilirubin 0.4 (0.2-1.3) mg/dL AST 21 (14-36) U/L ALT 20 (9-52) U/L Alkaline Phosphatase 155 H (38-126) U/L Total Creatine Kinase (30-135) U/L CK-MB (CK-2) (0.0-2.4) ng/mL CK-MB (CK-2) Rel Index Troponin I (0.000-0.034) ng/mL Total Protein 6.9 (6.3-8.2) g/dL Albumin 3.7 (3.5-5.0) g/dL Urine Color Urine Appearance (Clear) Urine pH (5.0-8.0) Ur Specific [place] (1.001-1.035) Urine Protein (Negative) Urine Glucose (UA) (Negative) Urine Ketones (Negative) Urine Blood (Negative) Urine Nitrite (Negative) Urine Bilirubin (Negative) Urine Urobilinogen (<2.0) mg/dL Ur Leukocyte Esterase (Negative) Urine RBC (0-5) /hpf Urine WBC (0-5) /hpf Urine WBC Clumps (None) /hpf Urine Bacteria (None) /hpf Urine Mucus (None) /hpf 06/05/18 06/05/18 Range/Units 23:21 23:21 WBC (3.8-10.6) k/uL RBC (3.80-5.40) m/uL Hgb (11.4-16.0) gm/dL Hct (34.0-46.0) % MCV (80.0-100.0) fL MCH (25.0-35.0) pg MCHC (31.0-37.0) g/dL RDW (11.5-15.5) % Plt Count (150-450) k/uL Neutrophils % % Lymphocytes % % Monocytes % % Eosinophils % % Basophils % % Neutrophils # (1.3-7.7) k/uL Lymphocytes # (1.0-4.8) k/uL Monocytes # (0-1.0) k/uL Eosinophils # (0-0.7) k/uL Basophils # (0-0.2) k/uL PT (9.0-12.0) sec INR (<1.2) APTT (22.0-30.0) sec Sodium (137-145) mmol/L Potassium (3.5-5.1) mmol/L Chloride (98-107) mmol/L Carbon Dioxide (22-30) mmol/L Anion Gap mmol/L BUN (7-17) mg/dL Creatinine (0.52-1.04) mg/dL Est GFR (CKD-EPI)AfAm (>60 ml/min/1.73 sqM) Est GFR (CKD-EPI)NonAf (>60 ml/min/1.73 sqM) Glucose (74-99) mg/dL POC Glucose (mg/dL) (75-99) mg/dL POC Glu [employer] ID Estimated Ave Glu mg/dL 137 Hemoglobin A1c 6.4 H (4.0-6.0) % Plasma Lactic Acid Rony (0.7-2.0) mmol/L Calcium (8.4-10.2) mg/dL Phosphorus (2.5-4.5) mg/dL Magnesium (1.6-2.3) mg/dL Total Bilirubin (0.2-1.3) mg/dL AST (14-36) U/L ALT (9-52) U/L Alkaline Phosphatase (38-126) U/L Total Creatine Kinase 47 (30-135) U/L CK-MB (CK-2) 0.6 (0.0-2.4) ng/mL CK-MB (CK-2) Rel Index 1.3 Troponin I <0.012 (0.000-0.034) ng/mL Total Protein (6.3-8.2) g/dL Albumin (3.5-5.0) g/dL Urine Color Urine Appearance (Clear) Urine pH (5.0-8.0) Ur Specific [place] (1.001-1.035) Urine Protein (Negative) Urine Glucose (UA) (Negative) Urine Ketones (Negative) Urine Blood (Negative) Urine Nitrite (Negative) Urine Bilirubin (Negative) Urine Urobilinogen (<2.0) mg/dL Ur Leukocyte Esterase (Negative) Urine RBC (0-5) /hpf Urine WBC (0-5) /hpf Urine WBC Clumps (None) /hpf Urine Bacteria (None) /hpf Urine Mucus (None) /hpf - Radiology Data Radiology results: report reviewed (CT brain shows no acute changes or bleeding) , image reviewed Critical Care Time Critical Care Time: Yes Total Critical Care Time: 31 Disposition Clinical Impression: Brain mass, TIA (transient ischemic attack), History of seizures, Focal seizure , Status epilepticus Disposition: ADMITTED IP TO THIS [facility] Condition: Fair Is patient prescribed a controlled substance at d/c from ED?: No
[2018-06-06 00:44] LABS: Creatine Kinase MB 0.6 ng/mL (0.0-2.4); Troponin I <0.012 ng/mL (0.000-0.034)
[2018-06-06 01:38] VITALS: BMI 25.0
[2018-06-06] MEDS ORDERED: LORazepam 2 MG/ML INJ IV PRN (02:02)
[2018-06-06] MEDS: DEXAMETHASONE SOD PHOSPHATE 4 MG/ML 1 ML VIAL IV SCH ×4 (05:53→23:52)
[2018-06-06] MEDS: CARVEDILOL 12.5 MG TAB PO SCH ×3 (07:46→18:18)
[2018-06-06] MEDS: levETIRAcetam IV 1,000 MG in SALINE 1 100ML.BAG IVPB SCH ×2 (07:46→20:07)
[2018-06-06] MEDS: ENOXAPARIN 40 MG/0.4 ML SYRINGE SQ SCH (07:47)
[2018-06-06 07:48] LABS: Glucose,Whole Blood 131 mg/dL (75-99)
[2018-06-06 11:38] LABS: Glucose,Whole Blood 139 mg/dL (75-99)
[2018-06-06 17:07] LABS: Glucose,Whole Blood 121 mg/dL (75-99)
[2018-06-06] MEDS: INSULIN ASPART 100 UNIT/ML 1 ML 10 ML VIAL SQ SCH ×2 (17:10→21:42)
--- NOTE | 2018-06-06 18:12 | P.CNNES ---
History of Present Illness Consult date: 06/06/18 Requesting physician: Marcin Mixon Reason for Consult: Seizure History of Present Illness: Patient is a pleasant 72-year-old female who is being evaluated by the neurology service on 06/06/2018 per the request of Dr. Mixon for seizures. The patient was brought into [facility] emergency room after her noticed that she was having garbled speech and possible seizure activity. He also states patient was unresponsive and staring during this episode. states the episode lasted about 15 minutes and was still going on when EMS arrived. Patient does have a history of gamma knife procedure for her meningioma and this treatment occurred over a year ago. She continues to follow up at [facility] for this. Computed tomography scan of the brain showed cerebral atrophy. CT also showed old left parietal 3 cm area of encephalomalacia. No acute abnormalities are seen. Her vital signs on admission were temperature 97.4, pulse rate 92, respiratory rate 18, O2 saturation 97% on 2 L nasal cannula and blood pressure 195/99. Her labs on admission showed sodium 134, BUN 19, glucose 168, and alkaline phosphatase 155. Urinalysis showed positive for urinary tract infection. Patient was on Keppra 500 mg twice a day in the home setting. Patient was loaded was Keppra and her dose was increased to Keppra 1000 mg every 12 hours IV. At the time of my evaluation, the patient is resting comfortably in bed and appears to be post ictal. Patient has had no further seizure activity since admission. Review of Systems REVIEW OF SYSTEMS: Otherwise unremarkable and noncontributory. 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 History of Any Multi-Drug Resistant Organisms: None Reported Past Surgical History: Hysterectomy Additional Past Surgical History / Comment(s): Total hysterectomy, right hip arthroplasty, laser surgery of the right eye of her bleeding, bladder suspension , right elbow metal plate , gamma knife procedure for meningoma lt side of brain 03-11-17 Past Anesthesia/Blood Transfusion Reactions: No Reported Reaction Past Psychological History: Anxiety, Bipolar, Depression Additional Psychological History / Comment(s): 03/19/2016- treated for psychosis , bipolar depression, paranoid symptoms and hearing voices. 05-13-17 pt denies any current problem with depression or thoughts of wanting to harm self. pt lives with her spouse in ranch style home that has 2 steps to enter. hs a pet cat. no outside services recieved-daughter heips out when needed. no medical equipment except for cane. Smoking Status: Former smoker Past Alcohol Use History: None Reported Additional Past Alcohol Use History / Comment(s): Patient was a smoker for approx 6 years and quit in 1979. She denies any medical marijuana, marijuana, street drug or alcohol use. She uses a cane for ambulation since the intracranial bleed in July 2015. Past Drug Use History: None Reported - Past Family History Father Family Medical History: No Reported History Additional Family Medical History / Comment(s): Father is alive in his 80s and is a smoker. Patient does not know his medical history. Mother Family Medical History: No Reported History Additional Family Medical History / Comment(s): Mother at age 79 from Alzheimer's dementia. Sister(s) Family Medical History: Congestive Heart Failure (CHF) Additional Family Medical History / Comment(s): She has one sister that is from heart failure. Patient does not have any brothers. Patient has 2 daughters that are 45 and 42 years of age with no major medical problems. Medications and Allergies Home Medications Medication Instructions Recorded Confirmed Type Anastrozole [Arimidex] 1 mg PO DAILY 12/22/16 06/05/18 History levETIRAcetam [Keppra] 500 mg PO Q12HR #60 tab 05/15/17 06/05/18 Rx Tolterodine Tartrate [Detrol LA] 4 mg PO DAILY 07/21/17 06/05/18 History Aspirin 81 mg PO DAILY chew 07/23/17 06/05/18 Rx Melatonin 3 mg PO HS 10/13/17 06/05/18 History risperiDONE [RisperDAL] 0.5 mg PO DAILY 11/10/17 06/05/18 History Atorvastatin [Lipitor] 40 mg PO DAILY 03/03/18 06/05/18 History Carvedilol [Coreg] 25 mg PO BID 03/03/18 06/05/18 History Empagliflozin [Jardiance] 10 mg PO DAILY 03/03/18 06/05/18 History Cholecalciferol [Vitamin D3] 1,000 unit PO DAILY 06/05/18 06/05/18 History Cranberry Fruit Extract [Cranberry] 200 mg PO DAILY 06/05/18 06/05/18 History Cyanocobalamin (Vitamin B-12) 1,000 mcg PO DAILY 06/05/18 06/05/18 History [Vitamin B-12] Multivitamins, Thera [Multivitamin 1 tab PO DAILY 06/05/18 06/05/18 History (formulary)] Ubidecarenone [Co Q-10] 100 mg PO DAILY 06/05/18 06/05/18 History busPIRone HCl [Buspar] 5 mg PO DAILY 06/05/18 06/05/18 History risperiDONE [RisperDAL] 1.5 mg PO HS 06/05/18 06/05/18 History metFORMIN HCL [Glucophage] 500 mg PO BID 06/06/18 06/06/18 History Allergies Allergy/AdvReac Type Severity Reaction Status Date / Time Sulfa (Sulfonamide Allergy Unknown Unknown Verified 06/05/18 23:13 Antibiotics) egg AdvReac Diarrhea Verified 06/05/18 23:13 solifenacin [From Vesicare] AdvReac Confusion/s Verified 06/05/18 23:13 haking Physical Examination - Vital Signs Vital Signs: Vital Signs Temp Pulse Pulse Resp BP BP Pulse Ox 06/06/18 14:46 98.3 F 99 16 140/76 94 L 06/06/18 05:50 96.9 F L 95 18 160/97 06/06/18 00:53 97.4 F L 83 18 159/88 96 06/06/18 00:35 83 17 183/93 96 06/05/18 23:29 87 18 161/74 95 06/05/18 23:13 97 17 181/84 96 06/05/18 22:37 97.4 F L 92 18 195/99 97 Intake and Output 06/06/18 06/06/18 06/06/18 06:59 14:59 22:59 Other: Voiding Method Diaper Diaper Diaper # Voids 2 # Bowel Movements 1 Weight 72.575 kg PHYSICAL EXAM: GENERAL APPEARANCE: Patient is a well-developed, female who appears to be in no acute distress. HEENT: Normocephalic, atraumatic, no facial asymmetry is seen. Neck is supple with no masses felt. CARDIOVASCULAR: Regular rate and rhythm. ABDOMEN: Nontender, nondistended. EXTREMITIES: Show no edema or clubbing. NEUROLOGICAL EXAM: Patient awakens to name. Patient does not follow any commands. Patient does not speak. She is moving all 4 extremities purposefully. No obvious facial asymmetry is noted. No lateralizing weakness seen. No tremors or seizure-like activity noted. Results - Laboratory Findings CBC and BMP: 06/05/18 23:21 06/05/18 23:21 Abnormal Lab Findings: Abnormal Labs 06/05/18 06/05/18 06/05/18 22:32 23:06 23:21 Sodium 134 L BUN 19 H Glucose 168 H POC Glucose (mg/dL) 155 H Alkaline Phosphatase 155 H Urine Appearance Cloudy H Urine Protein Trace H Urine Glucose (UA) 4+ H Urine Nitrite Positive H Ur Leukocyte Esterase Large H Urine WBC 161 H Urine WBC Clumps Many H Urine Bacteria Occasional H Urine Mucus Occasional H 06/06/18 06/06/18 06/06/18 07:45 11:17 17:06 Sodium BUN Glucose POC Glucose (mg/dL) 131 H 139 H 121 H Alkaline Phosphatase Urine Appearance Urine Protein Urine Glucose (UA) Urine Nitrite Ur Leukocyte Esterase Urine WBC Urine WBC Clumps Urine Bacteria Urine Mucus Assessment and Plan Plan: Impression: 1. Focal seizure 2. Altered mental status 3. History of brain mass 4. Urinary tract infection 5. History of TIA Recommendation: It appears the patient's suffered a focal seizure and remains post ictal at this time. Patient does awaken to name, however, she does not follow any commands and appears to have receptive aphasia. I will order an MRI of the brain with and without contrast as she does have history of brain mass as well as history of intracranial bleeding. I will order an EEG, I recommend increasing Keppra dose to 1000 mg every 12 IV which she is currently receiving. I do recommend antibiotic therapy for her urinary tract infection. I do recommend adjusting blood pressure medication as her blood pressure was elevated on admission. Continue neurological checks. Continue seizure precautions. I advise physical therapy and occupational therapy to evaluate and treat once patient is more awake. Continue the rest of your current workup and management. I will continue to follow with you. Further recommendations to follow. Thank you for allowing me to participate in the care of your patient. If you have any questions, please feel free to contact me. I performed an examination of the patient and discussed the management with the GLOBAL COORDINATOR. I have reviewed the GLOBAL COORDINATOR notes and agree with the findings and plan of care.
[2018-06-06 21:32] LABS: Glucose,Whole Blood 133 mg/dL (75-99)
[2018-06-07] MEDS: DEXAMETHASONE SOD PHOSPHATE 4 MG/ML 1 ML VIAL IV SCH ×4 (05:02→23:58)
[2018-06-07 07:00] LABS: Glucose,Whole Blood 144 mg/dL (75-99)
[2018-06-07] MEDS: CARVEDILOL 12.5 MG TAB PO SCH ×2 (08:52→16:55)
[2018-06-07] MEDS: ENOXAPARIN 40 MG/0.4 ML SYRINGE SQ SCH (08:52)
--- NOTE | 2018-06-07 09:01 | P.HPIM ---
History of Present Illness 73 years old female with past medical history of CVA/TIA, diabetes mellitus, GERD, hyperlipidemia, hypertension, seizure disorders on Keppra, history of meningioma status postgamma knife procedure on 03/11/2017 and she follows up with [facility] for that. Right breast cancer, status post right lumpectomy. Recurrent UTI and overactive bladder. She is a patient of Dr. Hunt, Who presents because of seizure-like activities. Patient this morning she could not provide information and she does not follow commands. No family at bedside. Information has been taken from staff and medical records her noticed that she was having garbled speech and possible seizure activity. He also states patient was unresponsive and staring during this episode. states the episode lasted about 15 minutes and was still going on when EMS arrived. Computed tomography scan of the brain showed cerebral atrophy. CT also showed old left parietal 3 cm area of encephalomalacia. No acute abnormalities are seen. Her vital signs on admission were temperature 97.4, pulse rate 92, respiratory rate 18, O2 saturation 97% on 2 L nasal cannula and blood pressure 195/99. Her labs on admission showed sodium 134, BUN 19, glucose 168, and alkaline phosphatase 155. Urinalysis showed positive for urinary tract infection. Patient was on Keppra 500 mg twice a day in the home setting. Patient was loaded was Keppra and her dose was increased to Keppra 1000 mg every 12 hours IV. At the time of my evaluation, the patient is resting comfortably in bed and appears to be post ictal. Patient has had no further seizure Her current blood pressure is 157/83. Respiratory vitals are unremarkable. Temperature is 97.6. CBC and LFTs and BMP were unremarkable. Urine analysis was suspicious for infections with double obesity 161, with large leukocyte Estrace. And positive nitrites As per staff her mental status is improving patient was unresponsive and does not open eyes spontaneously. Compared to this morning she opens eyes and smiles back and moves upper and lower extremities. With no difficulties. With absent meningeal signs. However patient does not follow commands and she does not answer questions Review of Systems n/a Past Medical History Past Medical History: Cancer, CVA/TIA, Diabetes Mellitus, GERD/Reflux, Hyperlipidemia, Hypertension, Seizure Disorder Additional Past Medical History / Comment(s): Intracranial bleed July 2015, overactive bladder, multi UTI- ecoli, Breast cancer,meningoma lt side of brain - had gamma knife procedure march 11 2017, RT bx,lumpectomy, lymph node removal." had seizure like symptoms on several ocassions but never got a clear answer if it was". History of Any Multi-Drug Resistant Organisms: None Reported Past Surgical History: Hysterectomy Additional Past Surgical History / Comment(s): Total hysterectomy, right hip arthroplasty, laser surgery of the right eye of her bleeding, bladder suspension , right elbow metal plate , gamma knife procedure for meningoma lt side of brain 03-11-17 Past Anesthesia/Blood Transfusion Reactions: No Reported Reaction Past Psychological History: Anxiety, Bipolar, Depression Additional Psychological History / Comment(s): 03/19/2016- treated for psychosis , bipolar depression, paranoid symptoms and hearing voices. 05-13-17 pt denies any current problem with depression or thoughts of wanting to harm self. pt lives with her spouse in ranch style home that has 2 steps to enter. hs a pet cat. no outside services recieved-daughter heips out when needed. no medical equipment except for cane. Smoking Status: Former smoker Past Alcohol Use History: None Reported Additional Past Alcohol Use History / Comment(s): Patient was a smoker for approx 6 years and quit in 1979. She denies any medical marijuana, marijuana, street drug or alcohol use. She uses a cane for ambulation since the intracranial bleed in July 2015. Past Drug Use History: None Reported - Past Family History Father Family Medical History: No Reported History Additional Family Medical History / Comment(s): Father is alive in his 80s and is a smoker. Patient does not know his medical history. Mother Family Medical History: No Reported History Additional Family Medical History / Comment(s): Mother at age 79 from Alzheimer's dementia. Sister(s) Family Medical History: Congestive Heart Failure (CHF) Additional Family Medical History / Comment(s): She has one sister that is from heart failure. Patient does not have any brothers. Patient has 2 daughters that are 45 and 42 years of age with no major medical problems. Medications and Allergies Home Medications Medication Instructions Recorded Confirmed Type Anastrozole [Arimidex] 1 mg PO DAILY 12/22/16 06/05/18 History levETIRAcetam [Keppra] 500 mg PO Q12HR #60 tab 05/15/17 06/05/18 Rx Tolterodine Tartrate [Detrol LA] 4 mg PO DAILY 07/21/17 06/05/18 History Aspirin 81 mg PO DAILY chew 07/23/17 06/05/18 Rx Melatonin 3 mg PO HS 10/13/17 06/05/18 History risperiDONE [RisperDAL] 0.5 mg PO DAILY 11/10/17 06/05/18 History Atorvastatin [Lipitor] 40 mg PO DAILY 03/03/18 06/05/18 History Carvedilol [Coreg] 25 mg PO BID 03/03/18 06/05/18 History Empagliflozin [Jardiance] 10 mg PO DAILY 03/03/18 06/05/18 History Cholecalciferol [Vitamin D3] 1,000 unit PO DAILY 06/05/18 06/05/18 History Cranberry Fruit Extract [Cranberry] 200 mg PO DAILY 06/05/18 06/05/18 History Cyanocobalamin (Vitamin B-12) 1,000 mcg PO DAILY 06/05/18 06/05/18 History [Vitamin B-12] Multivitamins, Thera [Multivitamin 1 tab PO DAILY 06/05/18 06/05/18 History (formulary)] Ubidecarenone [Co Q-10] 100 mg PO DAILY 06/05/18 06/05/18 History busPIRone HCl [Buspar] 5 mg PO DAILY 06/05/18 06/05/18 History risperiDONE [RisperDAL] 1.5 mg PO HS 06/05/18 06/05/18 History metFORMIN HCL [Glucophage] 500 mg PO BID 06/06/18 06/06/18 History Allergies Allergy/AdvReac Type Severity Reaction Status Date / Time Sulfa (Sulfonamide Allergy Unknown Unknown Verified 06/05/18 23:13 Antibiotics) egg AdvReac Diarrhea Verified 06/05/18 23:13 solifenacin [From Vesicare] AdvReac Confusion/s Verified 06/05/18 23:13 haking Physical Exam Vitals: Vital Signs Temp Pulse Resp BP Pulse Ox 06/07/18 05:55 98 F 90 18 157/83 96 06/06/18 22:13 99 F 93 16 139/81 96 06/06/18 14:46 98.3 F 99 16 140/76 94 L Intake and Output 06/06/18 06/07/18 06/07/18 22:59 06:59 14:59 Intake Total 200 Balance 200 Intake: Intake, IV Titration 100 Amount levETIRAcetam IV 1,000 mg 100 In Saline 1 100ml.bag @ 400 mls/hr IVPB Q12HR [facility] Rx#:[id number] Oral 100 Other: Voiding Method Diaper Diaper # Voids 2 2 GENERAL: The patient is fully awake however she is smiling and opens eyes spontaneously and can moves upper and lower extremities however she does not respond to questions and she does not follow commands. not in any acute distress. Well developed, well nourished. HEENT: Pupils are round and equally reacting to light. EOMI. No scleral icterus. No conjunctival pallor. Normocephalic, atraumatic. No pharyngeal erythema. No thyromegaly. CARDIOVASCULAR: S1 and S2 present. No murmurs, rubs, or gallops. PULMONARY: Chest is clear to auscultation, no wheezing or crackles. ABDOMEN: Soft, nontender, nondistended, normoactive bowel sounds. No palpable organomegaly. MUSCULOSKELETAL: No joint swelling or deformity. EXTREMITIES: No cyanosis, clubbing, or pedal edema. NEUROLOGICAL: Gross neurological examination did not reveal any focal deficits. SKIN: No rashes. Results CBC & Chem 7: 06/05/18 23:21 06/05/18 23:21 Labs: Abnormal Lab Results - Last 24 Hours (Table) 06/06/18 06/06/18 06/06/18 Range/Units 11:17 17:06 21:31 POC Glucose (mg/dL) 139 H 121 H 133 H (75-99) mg/dL 06/07/18 Range/Units 06:58 POC Glucose (mg/dL) 144 H (75-99) mg/dL Thrombosis Risk Factor Assmnt - Choose All That Apply Each Factor Represents 1 point: Medical pt on bed rest Each Risk Factor Represents 2 Points: Age 61-74 years Thrombosis Risk Factor Assessment Total Risk Factor Score: 3 Thrombosis Risk Factor Assessment Level: Moderate Risk Assessment and Plan Assessment: Recurrent Seizure-like activity. With history of seizure on Keppra acute UTI Metabolic encephalopathy secondary to above versus TIA/stroke with receptive aphasia History of meningioma, status post gamma knife History of TIA Plan: This is a pleasant 73 years old female presents with seizure and UTI. Suspected to have receptive aphasia. Continue with same treatment. Continue symptomatic treatment. Resume home medication. Monitor lytes and vitals. Neurological evaluation is appreciated. Recommended imaging with MRI of the brain with and without contrast given history of a brain mass and intracranial bleed. EEG is recommended. Increase Keppra 2000 mg twice a day. Continue with antibiotics and IV fluids. DVT and GI prophylaxis. Further recommendations based on the clinical course of the patient DVT prophylaxis: Subcutaneous Lovenox GI Prophylaxis: Pepcid PT/OT: Pending Prognosis is guarded
[2018-06-07] MEDS: INSULIN ASPART 100 UNIT/ML 1 ML 10 ML VIAL SQ SCH ×4 (09:04→22:24)
[2018-06-07] MEDS: levETIRAcetam IV 1,000 MG in SALINE 1 100ML.BAG IVPB SCH ×2 (09:59→22:25)
[2018-06-07] MEDS: FAMOTIDINE 20 MG/2 ML VIAL IV SCH ×2 (09:59→22:24)
[2018-06-07 11:21] LABS: Glucose,Whole Blood 139 mg/dL (75-99)
--- NOTE | 2018-06-07 16:03 | P.HPIM ---
History of Present Illness H&P Date: 06/06/18 Chief Complaint: Altered mental status 73 years old female with past medical history of CVA/TIA, diabetes mellitus, GERD, hyperlipidemia, hypertension, seizure disorders on Keppra, history of meningioma status postgamma knife procedure on 03/11/2017 and she follows up with [facility] for that. Right breast cancer, status post right lumpectomy. Recurrent UTI and overactive bladder. She is a patient of Dr. Hunt, Who presents because of seizure-like activities. Patient this morning she could not provide information and she does not follow commands. No family at bedside. Information has been taken from staff and medical records her noticed that she was having garbled speech and possible seizure activity. He also states patient was unresponsive and staring during this episode. states the episode lasted about 15 minutes and was still going on when EMS arrived. Computed tomography scan of the brain showed cerebral atrophy. CT also showed old left parietal 3 cm area of encephalomalacia. No acute abnormalities are seen. Her vital signs on admission were temperature 97.4, pulse rate 92, respiratory rate 18, O2 saturation 97% on 2 L nasal cannula and blood pressure 195/99. Her labs on admission showed sodium 134, BUN 19, glucose 168, and alkaline phosphatase 155. Urinalysis showed positive for urinary tract infection. Patient was on Keppra 500 mg twice a day in the home setting. Patient was loaded was Keppra and her dose was increased to Keppra 1000 mg every 12 hours IV. At the time of my evaluation, the patient is resting comfortably in bed and appears to be post ictal. Review of Systems ROS unobtainable: due to mental status Past Medical History Past Medical History: Cancer, CVA/TIA, Diabetes Mellitus, GERD/Reflux, Hyperlipidemia, Hypertension, Seizure Disorder Additional Past Medical History / Comment(s): Intracranial bleed July 2015, overactive bladder, multi UTI- ecoli, Breast cancer,meningoma lt side of brain - had gamma knife procedure march 11 2017, RT bx,lumpectomy, lymph node removal." had seizure like symptoms on several ocassions but never got a clear answer if it was". History of Any Multi-Drug Resistant Organisms: None Reported Past Surgical History: Hysterectomy Additional Past Surgical History / Comment(s): Total hysterectomy, right hip arthroplasty, laser surgery of the right eye of her bleeding, bladder suspension , right elbow metal plate , gamma knife procedure for meningoma lt side of brain 03-11-17 Past Anesthesia/Blood Transfusion Reactions: No Reported Reaction Past Psychological History: Anxiety, Bipolar, Depression Additional Psychological History / Comment(s): 03/19/2016- treated for psychosis , bipolar depression, paranoid symptoms and hearing voices. 05-13-17 pt denies any current problem with depression or thoughts of wanting to harm self. pt lives with her spouse in ranch style home that has 2 steps to enter. hs a pet cat. no outside services recieved-daughter heips out when needed. no medical equipment except for cane. Smoking Status: Former smoker Past Alcohol Use History: None Reported Additional Past Alcohol Use History / Comment(s): Patient was a smoker for approx 6 years and quit in 1979. She denies any medical marijuana, marijuana, street drug or alcohol use. She uses a cane for ambulation since the intracranial bleed in July 2015. Past Drug Use History: None Reported - Past Family History Father Family Medical History: No Reported History Additional Family Medical History / Comment(s): Father is alive in his 80s and is a smoker. Patient does not know his medical history. Mother Family Medical History: No Reported History Additional Family Medical History / Comment(s): Mother at age 79 from Alzheimer's dementia. Sister(s) Family Medical History: Congestive Heart Failure (CHF) Additional Family Medical History / Comment(s): She has one sister that is from heart failure. Patient does not have any brothers. Patient has 2 daughters that are 45 and 42 years of age with no major medical problems. Medications and Allergies Home Medications Medication Instructions Recorded Confirmed Type Anastrozole [Arimidex] 1 mg PO DAILY 12/22/16 06/05/18 History levETIRAcetam [Keppra] 500 mg PO Q12HR #60 tab 05/15/17 06/05/18 Rx Tolterodine Tartrate [Detrol LA] 4 mg PO DAILY 07/21/17 06/05/18 History Aspirin 81 mg PO DAILY chew 07/23/17 06/05/18 Rx Melatonin 3 mg PO HS 10/13/17 06/05/18 History risperiDONE [RisperDAL] 0.5 mg PO DAILY 11/10/17 06/05/18 History Atorvastatin [Lipitor] 40 mg PO DAILY 03/03/18 06/05/18 History Carvedilol [Coreg] 25 mg PO BID 03/03/18 06/05/18 History Empagliflozin [Jardiance] 10 mg PO DAILY 03/03/18 06/05/18 History Cholecalciferol [Vitamin D3] 1,000 unit PO DAILY 06/05/18 06/05/18 History Cranberry Fruit Extract [Cranberry] 200 mg PO DAILY 06/05/18 06/05/18 History Cyanocobalamin (Vitamin B-12) 1,000 mcg PO DAILY 06/05/18 06/05/18 History [Vitamin B-12] Multivitamins, Thera [Multivitamin 1 tab PO DAILY 06/05/18 06/05/18 History (formulary)] Ubidecarenone [Co Q-10] 100 mg PO DAILY 06/05/18 06/05/18 History busPIRone HCl [Buspar] 5 mg PO DAILY 06/05/18 06/05/18 History risperiDONE [RisperDAL] 1.5 mg PO HS 06/05/18 06/05/18 History metFORMIN HCL [Glucophage] 500 mg PO BID 06/06/18 06/06/18 History Allergies Allergy/AdvReac Type Severity Reaction Status Date / Time Sulfa (Sulfonamide Allergy Unknown Unknown Verified 06/05/18 23:13 Antibiotics) egg AdvReac Diarrhea Verified 06/05/18 23:13 solifenacin [From Vesicare] AdvReac Confusion/s Verified 06/05/18 23:13 haking Physical Exam Vitals: Vital Signs Temp Pulse Pulse Resp BP BP Pulse Ox 06/06/18 14:46 98.3 F 99 16 140/76 94 L 06/06/18 05:50 96.9 F L 95 18 160/97 06/06/18 00:53 97.4 F L 83 18 159/88 96 06/06/18 00:35 83 17 183/93 96 06/05/18 23:29 87 18 161/74 95 06/05/18 23:13 97 17 181/84 96 06/05/18 22:37 97.4 F L 92 18 195/99 97 Intake and Output 06/06/18 06/06/18 06/06/18 06:59 14:59 22:59 Other: Voiding Method Diaper Diaper Diaper # Voids 2 # Bowel Movements 1 Weight 72.575 kg GENERAL: The patient is fully awake however she is smiling and opens eyes spontaneously and can moves upper and lower extremities however she does not respond to questions and she does not follow commands. not in any acute distress. Well developed, well nourished. HEENT: Pupils are round and equally reacting to light. EOMI. No scleral icterus. No conjunctival pallor. Normocephalic, atraumatic. No pharyngeal erythema. No thyromegaly. CARDIOVASCULAR: S1 and S2 present. No murmurs, rubs, or gallops. PULMONARY: Chest is clear to auscultation, no wheezing or crackles. ABDOMEN: Soft, nontender, nondistended, normoactive bowel sounds. No palpable organomegaly. MUSCULOSKELETAL: No joint swelling or deformity. EXTREMITIES: No cyanosis, clubbing, or pedal edema. NEUROLOGICAL: Gross neurological examination did not reveal any focal deficits. SKIN: No rashes. Results CBC & Chem 7: 06/05/18 23:21 06/05/18 23:21 Labs: Abnormal Lab Results - Last 24 Hours (Table) 06/05/18 06/05/18 06/05/18 Range/Units 22:32 23:06 23:21 Sodium 134 L (137-145) mmol/L BUN 19 H (7-17) mg/dL Glucose 168 H (74-99) mg/dL POC Glucose (mg/dL) 155 H (75-99) mg/dL Alkaline Phosphatase 155 H (38-126) U/L Urine Appearance Cloudy H (Clear) Urine Protein Trace H (Negative) Urine Glucose (UA) 4+ H (Negative) Urine Nitrite Positive H (Negative) Ur Leukocyte Esterase Large H (Negative) Urine WBC 161 H (0-5) /hpf Urine WBC Clumps Many H (None) /hpf Urine Bacteria Occasional H (None) /hpf Urine Mucus Occasional H (None) /hpf 06/06/18 06/06/18 Range/Units 07:45 11:17 Sodium (137-145) mmol/L BUN (7-17) mg/dL Glucose (74-99) mg/dL POC Glucose (mg/dL) 131 H 139 H (75-99) mg/dL Alkaline Phosphatase (38-126) U/L Urine Appearance (Clear) Urine Protein (Negative) Urine Glucose (UA) (Negative) Urine Nitrite (Negative) Ur Leukocyte Esterase (Negative) Urine WBC (0-5) /hpf Urine WBC Clumps (None) /hpf Urine Bacteria (None) /hpf Urine Mucus (None) /hpf Thrombosis Risk Factor Assmnt - Choose All That Apply Each Factor Represents 1 point: Medical pt on bed rest Each Risk Factor Represents 2 Points: Age 61-74 years Thrombosis Risk Factor Assessment Total Risk Factor Score: 3 Thrombosis Risk Factor Assessment Level: Moderate Risk Assessment and Plan Assessment: 1. Recurrent seizure-like activity - We will continue with neuro checks and seizure precautions - Neurology is following and recommending to increase Keppra to 2000 mg every 12 hours - Recommending MRI of the brain with and without contrast - EEG is ordered and is pending - Consult PT/OT for evaluation and treatment once patient is stable 2. UTI - Patient is started on Rocephin 1 g IV daily - Await urine and blood cultures and plan to adjust antibiotic treatment accordingly 3. Metabolic encephalopathy; multifactorial; seizure activity versus UTI versus TIA/CVA - We will continue to work on underlying etiology 4. Uncontrolled hypertension - Patient remains on Coreg 25 mg twice a day - We will continue to monitor blood pressure closely and adjust medications if blood pressure remains elevated 5. History of meningioma status post gamma knife 6. DVT prophylaxis; subcu Lovenox Time with Patient: Greater than 30
--- NOTE | 2018-06-07 16:09 | P.PN ---
Subjective Progress Note Date: 06/07/18 Principal diagnosis: Altered mental status At the time of my evaluation, the patient is resting comfortably in bed and appears to be post ictal. Patient has had no further seizure Her current blood pressure is 157/83. Respiratory vitals are unremarkable. Temperature is 97.6. CBC and LFTs and BMP were unremarkable. Urine analysis was suspicious for infections with double obesity 161, with large leukocyte Estrace. And positive nitrites As per staff her mental status is improving patient was unresponsive and does not open eyes spontaneously. Compared to this morning she opens eyes and smiles back and moves upper and lower extremities. With no difficulties. With absent meningeal signs. However patient does not follow commands and she does not answer questions Objective - Vital Signs Vital signs: Vital Signs Temp 98.9 F 06/07/18 14:10 Pulse 76 06/07/18 14:10 Resp 16 06/07/18 14:55 BP 160/83 06/07/18 14:10 Pulse Ox 96 06/07/18 14:10 Intake & Output 06/06/18 06/07/18 06/07/18 18:59 06:59 18:59 Intake Total 200 100 Balance 200 100 Weight 72.575 kg Intake: Intake, IV Titration 100 Amount levETIRAcetam IV 1,000 mg 100 In Saline 1 100ml.bag @ 400 mls/hr IVPB Q12HR [facility] Rx#:[id number] Oral 100 100 Other: Voiding Method Diaper Diaper Diaper # Voids 2 2 - Exam - Constitutional General appearance: Present: average body habitus, cooperative, no acute distress - EENT Eyes: Present: anicteric sclerae, EOMI, PERRLA, normal appearance ENT: Present: hearing grossly normal, normal oropharynx Ears: bilateral: normal - Neck Neck: Present: normal ROM. Absent: lymphadenopathy, rigidity, thyromegaly Carotids: negative: bruit present Thyroid: bilateral: normal size, negative: enlarged, nodule - Respiratory Respiratory: bilateral: CTA, negative: rales, rhonchi, wheezing - Cardiovascular Rhythm: regular Heart sounds: normal: S1, S2 Abnormal Heart Sounds: Absent: systolic murmur, diastolic murmur - Gastrointestinal General gastrointestinal: Present: normal bowel sounds, soft. Absent: distended , organomegaly, tenderness - Genitourinary Genitourinary Comment(s): deferred - Integumentary Integumentary: Present: normal turgor. Absent: jaundiced, rash, ulcer - Neurologic Neurologic: Present: CNII-XII intact. Absent: focal deficits - Musculoskeletal Musculoskeletal: Present: gait normal, strength equal bilaterally - Psychiatric Psychiatric: Present: A&O x's 3, appropriate affect, intact judgment & insight - Labs CBC & Chem 7: 06/05/18 23:21 06/05/18 23:21 Labs: Abnormal Lab Results - Last 24 Hours (Table) 06/06/18 06/06/18 06/07/18 Range/Units 17:06 21:31 06:58 POC Glucose (mg/dL) 121 H 133 H 144 H (75-99) mg/dL 06/07/18 Range/Units 11:19 POC Glucose (mg/dL) 139 H (75-99) mg/dL Assessment and Plan Assessment: 1. Recurrent seizure-like activity - We will continue with neuro checks and seizure precautions - Neurology is following and recommending to increase Keppra to 2000 mg every 12 hours - Recommending MRI of the brain with and without contrast - EEG is ordered and is pending - Consult PT/OT for evaluation and treatment once patient is stable 2. UTI - Patient is started on Rocephin 1 g IV daily - Await urine and blood cultures and plan to adjust antibiotic treatment accordingly 3. Metabolic encephalopathy; multifactorial; seizure activity versus UTI versus TIA/CVA - We will continue to work on underlying etiology 4. Uncontrolled hypertension - Patient remains on Coreg 25 mg twice a day; we will add Norvasc 2.5 mg daily and titrate dose accordingly - We will continue to monitor blood pressure closely and adjust medications if blood pressure remains elevated 5. History of meningioma status post gamma knife 6. DVT prophylaxis; subcu Lovenox Time with Patient: Greater than 30
[2018-06-07] MEDS: amLODIPine 2.5 MG TAB PO SCH (16:55)
[2018-06-07 17:09] LABS: Glucose,Whole Blood 147 mg/dL (75-99)
--- NOTE | 2018-06-07 17:13 | CT ---
EXAMINATION TYPE: CT brain wo/w con DATE OF EXAM: 06/07/2018 COMPARISON: 06/05/2018 and 03/03/2018. Also, 08/08/2017 HISTORY: 73-year-old female with confusion, altered mental status. TECHNIQUE: Examination was done in axial plane before and after intravenous contrast. Coronal and s agittal reconstructions performed. CT DLP: 1620.1 mGycm Automated exposure control for dose reduction was used. FINDINGS: Stable 6 mm hyperdense focus at the left frontoparietal junction daigle-white matter interface. There i s mild adjacent hypodensity in the subcortical region near. Hypodensity in the underlying white matte r shows improvement from 06/05/2018 though there is some residual mild sulcal effacement in this regio n. There is some associated mild patchy general enhancement in this region, similar to 03/03/2018. There is no evidence of acute intracranial hemorrhage, acute ischemic changes, mass effect, or extra -axial fluid collection. There is no effacement of cerebral sulci or basal subarachnoid cisterns. T here is no hydrocephalus. There is no midline shift. Daigle-white matter distinction is preserved. Stable 1.5 cm enhancing extra-axial lesion in the left posterior cranial fossa typical of a meningiom a. Mild generalized supratentorial volume loss. Paranasal sinuses and mastoid air cells well pneumatized. Rightward nasal septal deviation. Orbits an d globes are intact. IMPRESSION: 1. Stable 6 mm hyperdense focus in the subcortical left frontoparietal junction. Possible underlying cavernoma. Some associated patchy gyral enhancement here is unchanged from 03/03/2018. The underlying vasogenic edema is improving from then. 2. No acute change seen. No midline shift, herniation, or hydrocephalus. 3. Stable 1.5 cm probable meningioma in the left posterior cranial fossa.
--- NOTE | 2018-06-07 17:42 | P.PN ---
Subjective Progress Note Date: 06/07/18 Patient is a pleasant 72-year-old female who is being followed by the neurology service for seizures. Patient was brought to [facility] emergency room after her witnessed an episode of his having garbled speech followed by episode of staring that lasted approximately 15 minutes and was still going on when EMS arrived. Patient does have history of meningioma with a gamma knife procedure being done at [facility]. Computed tomography scan of the brain on admission showed cerebral atrophy. Computed tomography scan of the brain did not show any acute abnormalities. Brain CT showed old left parietal 3 cm area of encephalomalacia. Patient was post ictal yesterday. Today patient is more awake however she is unable to follow commands or converse. Staff reports that patient was able to eat lunch as long his nurse that her. No dysphagia reported. Patient repetitively makes the statement "I can't call". Possible CVA was in the diagnostic differential. So computed tomography scan was ordered. Computed tomography scan did not show any acute changes. At the time of my evaluation patient does not appear to be in any acute distress. is at the bedside. Objective - Vital Signs Vital signs: Vital Signs Temp 98.9 F 06/07/18 14:10 Pulse 76 06/07/18 14:10 Resp 16 06/07/18 14:55 BP 160/83 06/07/18 14:10 Pulse Ox 96 06/07/18 14:10 Intake & Output 06/06/18 06/07/18 06/07/18 18:59 06:59 18:59 Intake Total 200 100 Balance 200 100 Weight 72.575 kg Intake: Intake, IV Titration 100 Amount levETIRAcetam IV 1,000 mg 100 In Saline 1 100ml.bag @ 400 mls/hr IVPB Q12HR [facility] Rx#:[id number] Oral 100 100 Other: Voiding Method Diaper Diaper Diaper # Voids 2 2 - Exam PHYSICAL EXAM: GENERAL APPEARANCE: Patient is a well-developed, female who appears to be in no acute distress. HEENT: Normocephalic, atraumatic, no facial asymmetry is seen. Neck is supple with no masses felt. CARDIOVASCULAR: Regular rate and rhythm. ABDOMEN: Nontender, nondistended. EXTREMITIES: Show no edema or clubbing. NEUROLOGICAL EXAM: Neurological exam is limited due to patient inability to cooperate. Patient is moving all 4 extremities purposefully. No obvious facial asymmetry is noted. No tremors or seizure-like activity noticed. - Labs CBC & Chem 7: 06/05/18 23:21 06/05/18 23:21 Labs: Abnormal Lab Results - Last 24 Hours (Table) 06/06/18 06/07/18 06/07/18 Range/Units 21:31 06:58 11:19 POC Glucose (mg/dL) 133 H 144 H 139 H (75-99) mg/dL 06/07/18 Range/Units 17:08 POC Glucose (mg/dL) 147 H (75-99) mg/dL Assessment and Plan Plan: Impression: 1. Focal seizure 2. Altered mental status 3. History of brain mass 4. Urinary tract infection 5. History of TIA Recommendation: It appears the patient's suffered a focal seizure and remains post ictal at this time. There is a concern for possible stroke. Patient had a repeat computed tomography scan which was negative for any acute process. Patient does awaken to name, however, she does not follow any commands and appears to have receptive and expressive aphasia. I will order an MRI of the brain with and without contrast as she does have history of brain mass as well as history of intracranial bleeding. I will order an EEG. Continue Keppra 1000 mg every 12 IV which she is currently receiving. I do recommend antibiotic therapy for her urinary tract infection. I do recommend adjusting blood pressure medication as her blood pressure was elevated on admission. Continue neurological checks. Continue seizure precautions. I advise physical therapy and occupational therapy to evaluate and treat now that patient is more awake. Continue the rest of your current workup and management. I will continue to follow with you. Further recommendations to follow. I performed an examination of the patient and discussed the management with the TILE ERECTOR. I have reviewed the TILE ERECTOR notes and agree with the findings and plan of care.
[2018-06-07 21:05] LABS: Glucose,Whole Blood 134 mg/dL (75-99)
[2018-06-07 22:12] VITALS: RESP 18
[2018-06-08] MEDS: DEXAMETHASONE SOD PHOSPHATE 4 MG/ML 1 ML VIAL IV SCH ×3 (05:46→18:20)
[2018-06-08 06:56] LABS: Glucose,Whole Blood 150 mg/dL (75-99)
[2018-06-08 07:08] LABS: Basophils % (A) 0 %; Eosinophils # (A) 0.1 k/uL (0-0.7); Eosinophils % (A) 1 %; HCT 38.9 % (34.0-46.0); Lymphocytes # (A) 0.8 k/uL (1.0-4.8); Lymphocytes % (A) 9 %; MCH 28.6 pg (25.0-35.0); MCHC 33.3 g/dL (31.0-37.0); MCV 85.8 fL (80.0-100.0); Mean Platelet Volume 6.6; Monocytes # (A) 0.4 k/uL (0-1.0); Monocytes % (A) 4 %; Neutrophils # (A) 8.3 k/uL (1.3-7.7); Neutrophils % (A) 86 %; Platelet Count 245 k/uL (150-450); RBC 4.54 m/uL (3.80-5.40); RDW 13.6 % (11.5-15.5); WBC 9.7 k/uL (3.8-10.6)
--- NOTE | 2018-06-08 07:59 | MR ---
EXAMINATION TYPE: MR brain wo/w con DATE OF EXAM: 06/08/2018 COMPARISON: MRI brain March 03, 2018. CT brain from yesterday. HISTORY: AMS per order. Weakness on admission 3 days earlier. TECHNIQUE: Multiplanar, multisequence images of the brain and brainstem is performed without and with IV contras t, utilizing 7 mL intravenous Gadavist . FINDINGS: Current exam is suboptimal due to patient motion related to altered mental status Diffusion weighted images demonstrate no area of increased signal on diffusion weighted images with diminished signal on ADC mapping involving the medial aspect left temporal lobe that shows T2 hyperintensity se en best image 96 series 305 and FLAIR image 13. No definitive enhancement is present at this level. E volving acute infarct is suspected. There is no worrisome extra-axial fluid collection. There is ventricular and sulcal prominence consi stent with diffuse cerebral atrophy. Some T2 hyperintensity in the periventricular white matter remai ns present. There is focus of susceptibility artifact and enhancement with surrounding edema left parietal occipi selina region, there is improvement from prior MRI noted. Homogeneous enhancing 1.3 cm meningioma anteri or left posterior cranial fossa axial image 9 is redemonstrated and stable. Midline structures demonstrate normal morphology. The craniocervical junction appears within normal limits. Post contrast images demonstrate no new areas of abnormal enhancement. The dural venous sin uses appear patent. The visualized sinuses are clear and the globes are intact. IMPRESSION: 1. Evolving acute infarct centered in medial portion of left temporal lobe. 2. Suspected recurrent neoplasm or metastatic disease left parietal occipital region has less promin ent mass effect versus prior MRI consistent with positive treatment response the patient is actively undergoing treatment. Clinical correlation advised. No new areas of suspicious enhancement seen. Gabe on artifact degradation however is noted. 3. Background mild to moderate diffuse cerebral atrophy and mild chronic small vessel ischemic change redemonstrated.
[2018-06-08] MEDS: CARVEDILOL 12.5 MG TAB PO SCH ×2 (08:05→17:36)
[2018-06-08] MEDS: amLODIPine 2.5 MG TAB PO SCH (08:05)
[2018-06-08] MEDS: INSULIN ASPART 100 UNIT/ML 1 ML 10 ML VIAL SQ SCH ×3 (08:05→17:57)
[2018-06-08] MEDS: ENOXAPARIN 40 MG/0.4 ML SYRINGE SQ SCH (08:06)
[2018-06-08] MEDS: FAMOTIDINE 20 MG/2 ML VIAL IV SCH (08:06)
[2018-06-08] MEDS: levETIRAcetam IV 1,000 MG in SALINE 1 100ML.BAG IVPB SCH (08:06)
[2018-06-08 08:15] LABS: Anion Gap 11 mmol/L; Blood Urea Nitrogen 32 mg/dL (7-17); Calcium 9.2 mg/dL (8.4-10.2); Carbon Dioxide 22 mmol/L (22-30); Chloride 111 mmol/L (98-107); Glucose 165 mg/dL (74-99); Potassium 4.2 mmol/L (3.5-5.1); Sodium 144 mmol/L (137-145)
[2018-06-08 11:27] LABS: Hemoglobin A1C 6.4 % (4.0-6.0)
[2018-06-08 11:29] LABS: Glucose,Whole Blood 149 mg/dL (75-99)
--- NOTE | 2018-06-08 14:47 | P.PN ---
Subjective Progress Note Date: 06/08/18 Patient is a pleasant 73-year-old female who is being followed by the neurology service for seizures. Patient was brought to [facility] emergency room after her witnessed an episode of his having garbled speech followed by episode of staring that lasted approximately 15 minutes and was still going on when EMS arrived. Patient does have history of meningioma with a gamma knife procedure being done at [facility]. Computed tomography scan of the brain on admission showed cerebral atrophy. Computed tomography scan of the brain did not show any acute abnormalities. Brain CT showed old left parietal 3 cm area of encephalomalacia. Patient was post ictal yesterday. Today patient is more awake however she is unable to follow commands or converse. Staff reports that patient was able to eat lunch as long as nurse fed her. No dysphagia reported. Patient repetitively makes the statement "I can't call". Possible CVA was in the diagnostic differential. So computed tomography scan was ordered. Computed tomography scan did not show any acute changes. At the time of my evaluation patient does not appear to be in any acute distress. is at the bedside. 06/08/2018 Patient is a pleasant 73-year-old female who is being followed by the neurology service for seizures. Patient came in Friday night with suspected seizure activity and presented in a postictal state. Patient was more arousable on Friday, however, still seemed quite sleepy. Patient was unable to follow commands or converse appropriately. Patient quickly fell back to sleep. Computed tomography scan on admission did not show any acute process. Patient was more awake on Friday however was still not able to converse or follow commands. Stat CT of the brain was done which did not show any acute process. Due to patient symptoms a stroke was suspected. MRI of the brain was done and revealed evolving acute infarct of the left temporal lobe. MRI of the brain also showed suspected recurrent neoplasm or metastatic disease in the left parietal occipital region. At the time of my evaluation, patient continues to have receptive and expressive aphasia. This was discussed with the who is at the bedside. Objective - Vital Signs Vital signs: Vital Signs Temp 98.6 F 06/08/18 05:27 Pulse 61 06/08/18 05:27 Resp 18 06/08/18 09:39 BP 165/80 06/08/18 05:27 Pulse Ox 99 06/08/18 05:27 Intake & Output 06/07/18 06/08/18 06/08/18 18:59 06:59 18:59 Intake Total 100 350 Balance 100 350 Weight 72.575 kg Intake: Intake, IV Titration 150 Amount cefTRIAXone 1,000 mg In 50 Sodium Chloride 0.9% 50 ml @ 100 mls/hr IVPB Q12H [facility] Rx#:[id number] levETIRAcetam IV 1,000 mg 100 In Saline 1 100ml.bag @ 400 mls/hr IVPB Q12HR [facility] Rx#:[id number] Oral 100 200 Other: Voiding Method Diaper Diaper Diaper # Voids 2 1 - Exam PHYSICAL EXAM: GENERAL APPEARANCE: Patient is a well-developed, female who appears to be in no acute distress. HEENT: Normocephalic, atraumatic, no facial asymmetry is seen. Neck is supple with no masses felt. CARDIOVASCULAR: Regular rate and rhythm. ABDOMEN: Nontender, nondistended. EXTREMITIES: Show no edema or clubbing. NEUROLOGICAL EXAM: Neurological exam is limited due to patient inability to cooperate. Patient is moving all 4 extremities purposefully. No obvious facial asymmetry is noted. No tremors or seizure-like activity noticed. - Labs CBC & Chem 7: 06/08/18 06:42 06/08/18 06:42 Labs: Abnormal Lab Results - Last 24 Hours (Table) 06/05/18 06/07/18 06/07/18 Range/Units 23:21 17:08 21:04 Neutrophils # (1.3-7.7) k/uL Lymphocytes # (1.0-4.8) k/uL Chloride (98-107) mmol/L BUN (7-17) mg/dL Glucose (74-99) mg/dL POC Glucose (mg/dL) 147 H 134 H (75-99) mg/dL Hemoglobin A1c 6.4 H (4.0-6.0) % 06/08/18 06/08/18 06/08/18 Range/Units 06:42 06:42 06:52 Neutrophils # 8.3 H (1.3-7.7) k/uL Lymphocytes # 0.8 L (1.0-4.8) k/uL Chloride 111 H (98-107) mmol/L BUN 32 H (7-17) mg/dL Glucose 165 H (74-99) mg/dL POC Glucose (mg/dL) 150 H (75-99) mg/dL Hemoglobin A1c (4.0-6.0) % 06/08/18 Range/Units 11:28 Neutrophils # (1.3-7.7) k/uL Lymphocytes # (1.0-4.8) k/uL Chloride (98-107) mmol/L BUN (7-17) mg/dL Glucose (74-99) mg/dL POC Glucose (mg/dL) 149 H (75-99) mg/dL Hemoglobin A1c (4.0-6.0) % Assessment and Plan Plan: Impression: 1. Focal seizure 2. Acute left temporal lobe infarct 3. Altered mental status 4. History of brain mass 5. Urinary tract infection 6. History of TIA 7. History of breast cancer Recommendation: It appears the patient's suffered a focal seizure prior to admission, however, patient's symptoms appear to be more than just post ictal symptoms. There was a concern for possible stroke. Patient had a repeat computed tomography scan which was negative for any acute process. Patient does awaken to name, however, she does not follow any commands and appears to have receptive and expressive aphasia. MRI of the brain showed an acute evolving stroke in the left temporal lobe. There is also suspected recurrence of neoplasm or metastatic disease in the left parietal occipital lobe. EEG shows mild encephalopathy as well as some sharp wave activity in the right temporal lobe consistent with reduced seizure threshold. Continue Keppra 1000 mg every 12 hours IV which she is currently receiving. She continues on antibiotic therapy for her urinary tract infection. I recommend transferring patient out to [place] [facility] for consultation. Continue neurological checks. Continue seizure precautions. Continue the rest of your current workup and management. I will continue to follow with you. Further recommendations to follow. I performed an examination of the patient and discussed the management with the DIRECTOR TALENT ACQUISITION. I have reviewed the DIRECTOR TALENT ACQUISITION notes and agree with the findings and plan of care.
[2018-06-08 15:38] VITALS: BP 147/77; PULSE 69; TEMP 98.3
--- NOTE | 2018-06-08 16:25 | EEG ---
ELECTROENCEPHALOGRAM REPORT DATE OF SERVICE: 06/08/2018. REASON FOR TESTING: Seizure. DESCRIPTION OF THE PROCEDURE: This EEG was performed using a 21 channel digital electroencephalograph, following international 10-20 system. DESCRIPTION OF THE RECORDING: From the beginning of the tracing, with patient's eyes closed, the background rhythm was mostly consisting of 7 Hz theta frequency in the posterior occipital leads. No obvious asymmetry is seen initially. Occasional movement artifacts and muscle artifacts are seen. Photic stimulation was performed with a minimal driving response seen. No pathological waves were elicited. Hyperventilation was not performed. Later in the tracing, occasional sharp wave activity is seen in the right temporal region. No generalized epileptiform discharges were seen. The patient remains awake throughout the tracing. Her EKG lead showed a regular rate and rhythm. INTERPRETATION: This awake EEG is abnormal due to the presence of generalized slowing of the background rhythm, mostly in the theta range. This is consistent with mild encephalopathy. Occasional sharp wave activity is seen in the right temporal region, consistent with a reduced seizure threshold. Clinical correlation is recommended. MMJAEL / TAISHAN: [id number] /
[2018-06-08] MEDS ORDERED: MULTIVITAMINS, THERA 1 EACH TAB PO SCH (16:30)
[2018-06-08] MEDS ORDERED: ASPIRIN 81 MG PO SCH (16:30)
[2018-06-08] MEDS ORDERED: CYANOCOBALAMIN 500 MCG TAB PO SCH (16:30)
[2018-06-08] MEDS ORDERED: ATORVASTATIN 40 MG TAB PO SCH (16:30)
[2018-06-08] MEDS ORDERED: busPIRone HCl 5 MG TAB PO SCH (16:30)
[2018-06-08] MEDS ORDERED: OXYBUTYNIN 10 MG TAB.ER.24 PO SCH (16:30)
[2018-06-08] MEDS ORDERED: ANASTROZOLE 1 MG TAB PO SCH (16:30)
[2018-06-08] MEDS ORDERED: NON-FORMULARY DRUG (Empagliflozin [Jardiance] 10 MG) PO SCH (16:30)
[2018-06-08 17:20] LABS: Glucose,Whole Blood 203 mg/dL (75-99)
[2018-06-08] MEDS ORDERED: FAMOTIDINE 20 MG TAB PO SCH (21:00)
--- NOTE | 2018-06-09 23:29 | DS ---
DISCHARGE SUMMARY DATE OF ADMISSION: 06/06/2018. DATE OF TRANSFER: 06/08/2018. FINAL DIAGNOSES: 1. Recurrent epilepsy, possible status. 2. Acute urinary tract infection, probably from cystitis. 3. Metabolic encephalopathy, likely from seizures. 4. Essential hypertension. 5. History of meningioma treated with common eye surgery. 6. Diabetes mellitus type 2, on oral hypoglycemic. 7. Hyperlipidemia. 8. Gastroesophageal reflux disease. 9. History of intracranial bleed in July of 2015. 10.Overactive bladder. HOSPITAL COURSE: This patient presented with seizure-like activity. The patient did have an MRI of the brain. I spoke to the radiologist. The area of meningioma had probably shrunk. I spoke to Dr. Longo to assess concern, may need further neurosurgical intervention because patient kept having seizures. Hence I contacted [facility], where the patient was transferred. Also discussed with the patient's at the bedside. The patient did have an EEG that showed evidence of encephalopathy and reduced seizure threshold. The patient is communicating a bit. EXAMINATION: Temperature 98.3, pulse 69, respirations 18, blood pressure 147/77, pulse ox 96% on room air. Lungs are clear. Cardiovascular, 1st and 2nd sounds are normal. The patient is slightly confused, answering questions occasionally. DISPOSITION: [facility] for higher level of care, in [place]. Discussion and discharge planning more than 35 minutes. MMODL / IJN: [id number] /
--- NOTE | 2018-06-12 08:23 | CDI ---
Last Revision, August 2017 Documentation Clarification Form Date: 06/12/18 From: Janina Porter Phone: If you have a question regarding this query, please contact Jessica Everett at [phone] between 8am and 5pm. Admit Date: 06/06/2018 12:29:00 AM Patient Name: Barbara Mendoza Visit Number: [id number] Discharge Date: 06/08/18 ATTENTION: The Clinical Documentation Specialists (CDI) and [facility] Coding Staff appreciate your assistance in clarifying documentation. Please respond to the clarification below the line at the bottom and electronically sign. The CDI & [facility] Coding staff will review the response and follow-up if needed. Please note: Queries are made part of the Legal Health Record. If you have any questions, please contact the author of this message via ITS. Bennett Borges MD Uncontrolled hypertension is documented in Dr. Ortiz's 06/07 progress note. History/Risk factors: Patient was admitted for altered mental status. The patieint has a history of CVA/TIA, diabetes, hypertension and seizure disorder. Clinical Indicators: On 06/05, the patients blood pressure readings were 195/99 , 181/84, 161/74 and 183/93. Treatment: Patient was on Coreg 25 mg twice a day. Norvasc 2.5 mg daily to titrate dose accordingly was added. Please specify the type of uncontrolled hypertension such as Crisis Emergency Urgency Other (please speciy in the medical record) Clinically unable to further specify Unknown hypertensive urgency, POA MTDD
--- NOTE | 2018-06-12 08:48 | CDI ---
Last Revision, August 2017 Documentation Clarification Form Date: 06/12/18 From: Janina Porter Phone: If you have a question regarding this query, please contact Jessica Everett at [phone] between 8am and 5pm. Admit Date: 06/06/2018 12:29:00 AM Patient Name: Barbara Mendoza Visit Number: [id number] Discharge Date: 06/08/18 ATTENTION: The Clinical Documentation Specialists (CDI) and [facility] Coding Staff appreciate your assistance in clarifying documentation. Please respond to the clarification below the line at the bottom and electronically sign. The CDI & [facility] Coding staff will review the response and follow-up if needed. Please note: Queries are made part of the Legal Health Record. If you have any questions, please contact the author of this message via ITS. Bennett Borges MD Acute left temporal lobe infarct is documented as a diagnosis in the Neurology progress note on 06/08. History/risk factors: Patient was admitted for altered mental status and recurrent seizure-like activity. The patient has a history of CVA/TIA, diabetes , hypertension and seizure disorder. Clinical Indicators: Altered mental status, receptive and expressive aphasia CT: Per neurology, patient had a repeat CT which was negative for any acute process. MRI/MRA: Showed an acute evolving stroke in the left temporal lobe. There is also suspected recurrence of neoplasm or metatstaic disease in the left parietal occipital lobe. Treatment: Patient was transferred to [facility] for possible further treatment of contiuing seizures. In your professional opinion, please clarify if the CVA was: Ruled In Ruled Out Other (please specify) Unable to Determine _ stroke ruled out __ MTDD
== END 2018-06-08 19:05 | disposition short-term general hospital (02) | DRG 100 ==
LOC: EC 22:20 → 5MS5E 06-06 00:29
PROVIDERS: ADMIT Hospitalist; ATTEND Hospitalist
DX: G40.101 Localization-related (focal) (partial) symptomatic epilepsy and epileptic syndromes with simple partial seizures, not intractable, with status epilepticus (principal); G93.41 Metabolic encephalopathy; E11.9 Type 2 diabetes mellitus without complications; E78.5 Hyperlipidemia, unspecified; F41.9 Anxiety disorder, unspecified; I10 Essential (primary) hypertension; K21.9 Gastro-esophageal reflux disease without esophagitis; N30.90 Cystitis, unspecified without hematuria; N32.81 Overactive bladder; F32.9 Major depressive disorder, single episode, unspecified; G93.89 Other specified disorders of brain; I16.0 Hypertensive urgency; Z79.84 Long term (current) use of oral hypoglycemic drugs; Z79.811 Long term (current) use of aromatase inhibitors; Z79.82 Long term (current) use of aspirin; Z79.899 Other long term (current) drug therapy; Z88.2 Allergy status to sulfonamides; Z88.8 Allergy status to other drugs, medicaments and biological substances; Z91.012 Allergy to eggs; Z96.641 Presence of right artificial hip joint; Z87.891 Personal history of nicotine dependence; Z90.710 Acquired absence of both cervix and uterus; Z87.440 Personal history of urinary (tract) infections; Z86.73 Personal history of transient ischemic attack (TIA), and cerebral infarction without residual deficits; Z85.3 Personal history of malignant neoplasm of breast; Z86.011 Personal history of benign neoplasm of the brain; Z82.49 Family history of ischemic heart disease and other diseases of the circulatory system; Z82.0 Family history of epilepsy and other diseases of the nervous system
CPT/HCPCS: 36415; 70450; 70470; 70553; 80048; 80053; 81001; 82550; 82553; 83036; 83605; 83735; 84100; 84484; 85025; 85610; 85730; 93005; 95816; 96361; 96374; 96375; 96376; 99285

== ENCOUNTER → 2018-07-09 | Outpatient (CLI) | payer MEDICARE, BC ==
[2018-07-09 19:56] LABS: Blood Urea Nitrogen 27 mg/dL (7-17)
--- NOTE | 2018-07-10 17:29 | CT ---
EXAMINATION TYPE: CT angio head neck DATE OF EXAM: 07/09/2018 HISTORY: Cerebral infarction COMPARISON: 08/09/2017 CT DLP: 264.3 mGycm. Automated Exposure Control for Dose Reduction was Utilized. TECHNIQUE: CTA scan of the neck is performed with IV Contrast, patient injected with 65 mL of Isovue 370, axial images are obtained, coronal and sagittal reformatted images are reviewed. Three-D recons tructed images are created on an independent workstation and reviewed. FINDINGS: Carotid/Vascular Structures: Very minimal calcification is at the carotid bifurcations. Internal and external carotid arteries without evidence of significant stenosis. There is some tortuosity of the r ight internal carotid artery at the skull base. Vertebral arteries are codominant. Tortuosity of the left proximal internal carotid artery is noted. [place]: The anterior communicating artery is patent. Small right posterior communicating ar mariza may be patent. The internal carotid arteries bifurcate normally into A1 and M1 segments. The A2 segments are normal. Middle cerebral artery branches are normal. Posterior cerebral vasculature is n ormal. Other: Septal deviation is to the right. No suspicious enlarged lymphadenopathy. Thyroid as visualize d contains a calcified area within the inferior left lobe thyroid. Lung apices appear clear. IMPRESSION: 1. No significant flow-limiting stenosis carotid bifurcations. 2. Tortuosity of the internal carotid arteries. 3. Calcified left lobe thyroid nodule.
== END ==
LOC: RADCTMAIN 19:11
PROVIDERS: ATTEND Psychiatry & Neurology Neurology
DX: I77.1 Stricture of artery (principal); I63.9 Cerebral infarction, unspecified
CPT/HCPCS: 82565; 84520; 70496; 70498; 36415; Q9967

== ENCOUNTER → 2018-07-10 | Outpatient (CLI) | payer MEDICARE, BC ==
--- NOTE | 2018-07-11 09:19 | ECHOF ---
Referral Reason:I63.9 Cerebral infarction, unspecified MEASUREMENTS -------- HEIGHT: 160.0 cm WEIGHT: 69.4 kg BP: IVSd: 0.9 cm (0.6 - 1.1) LVIDd: 4.4 cm (3.9 - 5.3) LVPWd: 1.2 cm (0.6 - 1.1) IVSs: 1.5 cm LVIDs: 1.9 cm LVPWs: 1.5 cm Ao Diam: 3.2 cm (2.0 - 3.7) AV Cusp: 1.7 cm (1.5 - 2.6) LA Diam: 2.8 cm (2.7 - 3.8) MV E Jason: 0.51 m/s MV DecT: 232 ms MV A Jason: 0.90 m/s MV E/A Ratio: 0.57 RAP: 5.00 mmHg RVSP: 9.35 mmHg FINDINGS -------- Sinus rhythm. This was a technically adequate study. The left ventricular size is normal. Left ventricular wall thickness is normal. Overall left vent ricular systolic function is normal with, an EF between 55 - 60 %. The right ventricle is normal in size and function. The left atrium is normal in size. The right atrium is normal in size. The aortic valve is trileaflet, and appears structurally normal. No aortic stenosis or regurgitation. Mild mitral annular calcification present. There is trace mitral regurgitation. Trace tricuspid regurgitation present. The right ventricular systolic pressure, as measured by Dopp ler, is 9.35mmHg. Pulmonic valve appears structurally normal. The aortic root size is normal. Normal inferior vena cava with normal inspiratory collapse consistent with estimated right atrial pre ssure of 5 mmHg. The pericardium is normal. CONCLUSIONS -------- 1. Sinus rhythm. 2. This was a technically adequate study. 3. The left ventricular size is normal. 4. Left ventricular wall thickness is normal. 5. Overall left ventricular systolic function is normal with, an EF between 55 - 60 %. 6. The right ventricle is normal in size and function. 7. The left atrium is normal in size. 8. The right atrium is normal in size. 9. The aortic valve is trileaflet, and appears structurally normal. No aortic stenosis or regurgitati on. 10. Mild mitral annular calcification present. 11. There is trace mitral regurgitation. 12. Trace tricuspid regurgitation present. 13. The right ventricular systolic pressure, as measured by Doppler, is 9.35mmHg. 14. Pulmonic valve appears structurally normal. 15. The aortic root size is normal. 16. Normal inferior vena cava with normal inspiratory collapse consistent with estimated right atrial pressure of 5 mmHg. 17. The pericardium is normal. OUTSIDE SALES EXECUTIVE: Wanda Hopper RDCS
== END ==
LOC: RADECHMAIN 15:17
PROVIDERS: ATTEND Psychiatry & Neurology Neurology
DX: I70.8 Atherosclerosis of other arteries (principal)
CPT/HCPCS: 93306

== ENCOUNTER 2018-07-31 16:26 | Emergency (ER) | payer MEDICARE, BC ==
[2018-07-31] MEDS ORDERED: SODIUM CHLORIDE 0.9% 1,000 ML IV STA (17:38)
--- NOTE | 2018-07-31 18:11 | ED ---
General Adult HPI - General Chief complaint: Abdominal Pain Stated complaint: Abd pain Time Seen by Provider: 07/31/18 17:30 Source: patient, RN notes reviewed Mode of arrival: ambulatory Limitations: no limitations - History of Present Illness Initial comments: Patient 73-year-old female presented to the emergency room today with a chief complaint of abdominal pain over the last 5 days. Patient doesn't that she's had some nausea with no vomiting. Patient does admit to some lower abdominal pain. Patient denies any recent fever, chills, shortness of breath, chest pain, back pain, abdominal pain, nausea or vomiting, numbness or tingling, dysuria or hematuria, constipation or diarrhea, headaches or visual changes, or any other complaints. - Related Data Home Medications Medication Instructions Recorded Confirmed Anastrozole [Arimidex] 1 mg PO DAILY 12/22/16 07/31/18 Tolterodine Tartrate [Detrol LA] 4 mg PO HS 07/21/17 07/31/18 Melatonin 3 mg PO HS 10/13/17 07/31/18 risperiDONE [RisperDAL] 0.5 mg PO DAILY 11/10/17 07/31/18 Atorvastatin [Lipitor] 40 mg PO DAILY 03/03/18 07/31/18 Carvedilol [Coreg] 12.5 - 25 mg PO BID 03/03/18 07/31/18 Empagliflozin [Jardiance] 10 mg PO DAILY 03/03/18 07/31/18 Cholecalciferol [Vitamin D3] 1,000 unit PO DAILY 06/05/18 07/31/18 Cranberry Fruit Extract [Cranberry] 200 mg PO DAILY 06/05/18 07/31/18 Cyanocobalamin (Vitamin B-12) 1,000 mcg PO DAILY 06/05/18 07/31/18 [Vitamin B-12] Multivitamins, Thera [Multivitamin 1 tab PO DAILY 06/05/18 07/31/18 (formulary)] Ubidecarenone [Co Q-10] 100 mg PO DAILY 06/05/18 07/31/18 busPIRone HCl [Buspar] 5 mg PO HS 06/05/18 07/31/18 metFORMIN HCL [Glucophage] 500 mg PO BID 06/06/18 07/31/18 Acetaminophen Tab [Tylenol Tab] 650 mg PO Q6H PRN 07/31/18 07/31/18 Omeprazole 20 mg PO DAILY 07/31/18 07/31/18 levETIRAcetam [Keppra] 1,000 mg PO Q12HR 07/31/18 07/31/18 Previous Rx's Medication Instructions Recorded Aspirin 81 mg PO DAILY chew 07/23/17 Nitrofurantoin Monohyd/M-Cryst 100 mg PO Q12HR #14 cap 07/31/18 [Macrobid] Allergies Allergy/AdvReac Type Severity Reaction Status Date / Time Sulfa (Sulfonamide Allergy Unknown Unknown Verified 07/31/18 17:41 Antibiotics) egg AdvReac Diarrhea Verified 07/31/18 17:41 solifenacin [From [facility]] AdvReac Confusion/s Verified 07/31/18 17:41 haking Review of Systems ROS Statement: Those systems with pertinent positive or pertinent negative responses have been documented in the HPI. ROS Other: All systems not noted in ROS Statement are negative. 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 History of Any Multi-Drug Resistant Organisms: None Reported Past Surgical History: Hysterectomy Additional Past Surgical History / Comment(s): Total hysterectomy, right hip arthroplasty, laser surgery of the right eye of her bleeding, bladder suspension , right elbow metal plate , gamma knife procedure for meningoma lt side of brain 03-11-17 Past Anesthesia/Blood Transfusion Reactions: No Reported Reaction Past Psychological History: Anxiety, Bipolar, Depression Smoking Status: Former smoker Past Alcohol Use History: None Reported Past Drug Use History: None Reported - Past Family History Father Family Medical History: No Reported History Additional Family Medical History / Comment(s): Father is alive in his 80s and is a smoker. Patient does not know his medical history. Mother Family Medical History: No Reported History Additional Family Medical History / Comment(s): Mother at age 79 from Alzheimer's dementia. Sister(s) Family Medical History: Congestive Heart Failure (CHF) Additional Family Medical History / Comment(s): She has one sister that is from heart failure. Patient does not have any brothers. Patient has 2 daughters that are 45 and 42 years of age with no major medical problems. General Exam - General Exam Comments Initial Comments: General: The patient is awake and alert, in no distress, and does not appear acutely ill. Eye: Pupils are equal, round and reactive to light. Extra-ocular movements are intact. No nystagmus. There is normal conjunctiva bilaterally. No signs of icterus. Ears, nose, mouth and throat: There are moist mucous membranes and no oral lesions. Neck: The neck is supple, there is no tenderness or JVD. Cardiovascular: There is a regular rate and rhythm. No murmur, rub or gallop is appreciated. Respiratory: Lungs are clear to auscultation, respirations are non-labored, breath sounds are equal. No wheezes, stridor, rales, or rhonchi. Gastrointestinal: Soft, non-distended, non-tender abdomen without masses or organomegaly noted. There is no rebound or guarding present. No CVA tenderness. Bowel sounds are unremarkable. Musculoskeletal: Normal ROM, no tenderness. Sensation intact. Strength 5/5. Pulses equal bilaterally 2+. Neurological: A&O x 3. CN II-XII intact, There are no obvious motor or sensory deficits. Coordination appears grossly intact. Speech is normal. Skin: Skin is warm and dry and no rashes or lesions are noted. Psychiatric: Cooperative, appropriate mood & affect, normal judgment. Limitations: no limitations Course Vital Signs 07/31/18 07/31/18 16:43 19:22 Temperature 98.2 F 97.9 F Pulse Rate 79 83 Respiratory 16 16 Rate Blood Pressure 126/81 117/58 O2 Sat by Pulse 98 97 Oximetry Medical Decision Making - Medical Decision Making Patient's a CT of the abdomen and pelvis is been reviewed and shows no acute abnormality. Patient's labs reviewed blood work unremarkable. Urinalysis does show urinary tract infection. Patient given dose Rocephin here in emergency room discharged home and continued on antibiotics. She is advised follow-up with family doctor next 2 days. Advised return here should worsen - Lab Data Result diagrams: 07/31/18 18:23 07/31/18 18:23 Lab Results 07/31/18 07/31/18 07/31/18 Range/Units 18:23 18:23 19:44 WBC 7.9 (3.8-10.6) k/uL RBC 4.09 (3.80-5.40) m/uL Hgb 11.9 (11.4-16.0) gm/dL Hct 34.9 (34.0-46.0) % MCV 85.5 (80.0-100.0) fL MCH 29.2 (25.0-35.0) pg MCHC 34.1 (31.0-37.0) g/dL RDW 13.9 (11.5-15.5) % Plt Count 240 (150-450) k/uL Neutrophils % 68 % Lymphocytes % 19 % Monocytes % 8 % Eosinophils % 2 % Basophils % 1 % Neutrophils # 5.3 (1.3-7.7) k/uL Lymphocytes # 1.5 (1.0-4.8) k/uL Monocytes # 0.7 (0-1.0) k/uL Eosinophils # 0.2 (0-0.7) k/uL Basophils # 0.0 (0-0.2) k/uL Sodium 137 (137-145) mmol/L Potassium 4.6 (3.5-5.1) mmol/L Chloride 105 (98-107) mmol/L Carbon Dioxide 23 (22-30) mmol/L Anion Gap 9 mmol/L BUN 27 H (7-17) mg/dL Creatinine 0.61 (0.52-1.04) mg/dL Est GFR (CKD-EPI)AfAm >90 (>60 ml/min/1.73 sqM) Est GFR (CKD-EPI)NonAf >90 (>60 ml/min/1.73 sqM) Glucose 150 H (74-99) mg/dL Calcium 9.8 (8.4-10.2) mg/dL Total Bilirubin 0.4 (0.2-1.3) mg/dL AST 19 (14-36) U/L ALT 22 (9-52) U/L Alkaline Phosphatase 104 (38-126) U/L Total Protein 6.7 (6.3-8.2) g/dL Albumin 3.7 (3.5-5.0) g/dL Amylase 33 (30-110) U/L Lipase 64 (23-300) U/L Urine Color Light Yellow Urine Appearance Turbid H (Clear) Urine pH 6.5 (5.0-8.0) Ur Specific [place] 1.019 (1.001-1.035) Urine Protein 1+ H (Negative) Urine Glucose (UA) 4+ H (Negative) Urine Ketones Negative (Negative) Urine Blood Small H (Negative) Urine Nitrite Negative (Negative) Urine Bilirubin Negative (Negative) Urine Urobilinogen <2.0 (<2.0) mg/dL Ur Leukocyte Esterase Large H (Negative) Urine RBC 38 H (0-5) /hpf Urine WBC >182 H (0-5) /hpf Urine WBC Clumps Many H (None) /hpf Disposition Clinical Impression: UTI (urinary tract infection) Disposition: HOME SELF-CARE Condition: Good Instructions: Urinary Tract Infection in Women (ED) Additional Instructions: Please use medication as discussed. Please follow-up with family doctor in the next 2 days of symptoms have not improved. Please return to emergency room if the symptoms increase or worsen or for any other concerns. Prescriptions: Nitrofurantoin Monohyd/M-Cryst [Macrobid] 100 mg PO Q12HR #14 cap Is patient prescribed a controlled substance at d/c from ED?: No Referrals: Mani Hunt DO [Primary Care Provider] - 1-2 days Time of Disposition: 20:17
[2018-07-31 18:46] LABS: Basophils % (A) 1 %; Eosinophils # (A) 0.2 k/uL (0-0.7); Eosinophils % (A) 2 %; HCT 34.9 % (34.0-46.0); HGB 11.9 gm/dL (11.4-16.0); Lymphocytes # (A) 1.5 k/uL (1.0-4.8); Lymphocytes % (A) 19 %; MCH 29.2 pg (25.0-35.0); MCHC 34.1 g/dL (31.0-37.0); MCV 85.5 fL (80.0-100.0); Mean Platelet Volume 6.5; Monocytes # (A) 0.7 k/uL (0-1.0); Monocytes % (A) 8 %; Neutrophils # (A) 5.3 k/uL (1.3-7.7); Neutrophils % (A) 68 %; Platelet Count 240 k/uL (150-450); RBC 4.09 m/uL (3.80-5.40); RDW 13.9 % (11.5-15.5); WBC 7.9 k/uL (3.8-10.6)
[2018-07-31 18:55] LABS: ALT 22 U/L (9-52); AST 19 U/L (14-36); Albumin 3.7 g/dL (3.5-5.0); Alkaline Phosphatase 104 U/L (38-126); Amylase 33 U/L (30-110); Anion Gap 9 mmol/L; Blood Urea Nitrogen 27 mg/dL (7-17); Calcium 9.8 mg/dL (8.4-10.2); Carbon Dioxide 23 mmol/L (22-30); Chloride 105 mmol/L (98-107); Glucose 150 mg/dL (74-99); Lipase 64 U/L (23-300); Potassium 4.6 mmol/L (3.5-5.1); Sodium 137 mmol/L (137-145); Total Bilirubin 0.4 mg/dL (0.2-1.3); Total Protein 6.7 g/dL (6.3-8.2)
--- NOTE | 2018-07-31 19:53 | CT ---
EXAMINATION TYPE: CT abdomen pelvis w con DATE OF EXAM: 07/31/2018 COMPARISON: None HISTORY: abdominal pain CT DLP: 823.9 mGycm Automated exposure control for dose reduction was used. TECHNIQUE: Helical acquisition of images was performed from the lung bases through the pelvis. CONTRAST: Performed without Oral Contrast and with IV Contrast, patient injected with 100 mL of Isovue 300. FINDINGS: Heart size is normal. There is no pericardial effusion. Lung bases are clear of consolidation. There is no pleural effusion. There are clips from cholecystectomy. Liver appears normal. Bile ducts are no t dilated. Spleen appears normal. There are small cysts in the body of the pancreas that could be pse udocyst. The largest measures 13 mm. There is no adrenal mass. Kidneys show satisfactory contrast opacification. There is no hydronephrosi s. Ureters are not dilated. There are numerous diverticula in the sigmoid colon. There is metal artif act from right hip prosthesis. There is mild thickening of the urinary bladder wall. There is air yoly ble in the bladder that could be from catheterization. There is no ascites. There is no evidence of a bowel obstruction. There are spondylotic changes in the lumbar spine. There is multilevel bony lumba r spinal stenosis. This is more severe at L3-4 L4-5. IMPRESSION: LUMBAR SPINAL STENOSIS. COLONIC MODERATE DIVERTICULOSIS WITHOUT DIVERTICULITIS. SMALL PANCREATIC CYSTIC LESIONS ARE PROBABLY PSEUDOCYSTS. NO SIGN OF ACUTE ABDOMEN AND PELVIS.
[2018-07-31 20:02] LABS: Appearance,Urine Turbid (Clear); Bilirubin,Urine Negative (Negative); Blood,Urine Small (Negative); Color,Urine Light Yellow; Glucose,Urine (UA) 4+ (Negative); Ketones,Urine Negative (Negative); Leukocyte Esterase,Urine Large (Negative); Nitrite,Urine Negative (Negative); PH, Urine 6.5 (5.0-8.0); Protein,Urine 1+ (Negative); RBC,Urine 38 /hpf (0-5); Specific Gravity,Urine 1.019 (1.001-1.035); Urobilinogen,Urine <2.0 mg/dL (<2.0); WBC,Urine >182 /hpf (0-5)
[2018-07-31 22:38] VITALS: BP 143/68; PULSE 73; RESP 18; TEMP 98.3
== END 2018-07-31 22:50 | disposition home or self-care (01) ==
LOC: EC 16:26
DX: N39.0 Urinary tract infection, site not specified (principal); R11.0 Nausea; E78.5 Hyperlipidemia, unspecified; I10 Essential (primary) hypertension; E11.9 Type 2 diabetes mellitus without complications; K21.9 Gastro-esophageal reflux disease without esophagitis; N32.81 Overactive bladder; G40.909 Epilepsy, unspecified, not intractable, without status epilepticus; F31.9 Bipolar disorder, unspecified; F41.9 Anxiety disorder, unspecified; Z87.891 Personal history of nicotine dependence; Z88.2 Allergy status to sulfonamides; Z88.8 Allergy status to other drugs, medicaments and biological substances; Z91.012 Allergy to eggs; Z79.84 Long term (current) use of oral hypoglycemic drugs; Z79.899 Other long term (current) drug therapy; Z85.3 Personal history of malignant neoplasm of breast; Z86.011 Personal history of benign neoplasm of the brain; Z98.890 Other specified postprocedural states
CPT/HCPCS: 36415; 80053; 82150; 83690; 85025; 81001; 74177; 99284; 96365; 96361; J0696; Q9967

== ENCOUNTER 2018-08-07 16:07 | Emergency (ER) | payer MEDICARE, BC ==
--- NOTE | 2018-08-07 17:48 | ED ---
General Adult HPI - General Chief complaint: Abdominal Pain Stated complaint: congestion Source: patient, family Mode of arrival: ambulatory Limitations: no limitations - History of Present Illness Initial comments: Dictation was produced using [employer] dictation software. please excuse any grammatical, word or spelling errors. Chief Complaint: 73-year-old female past medical history of cancer, diabetes, recurrent urinary tract infections presents with urinary frequency. History of Present Illness: [id number] female who is had multiple urinary tract infections presents with urinary frequency. Patient states she's also been having suprapubic pain. Her symptoms have been ongoing for about 2 days. Denies any flank pain. No constitutional symptoms. She is going to chart review has had multiple urinary tract infections. Patient otherwise feels well. No nausea vomiting or diarrhea. Patient is very value by urology in the past. She does not know a cause of her frequent UTIs. The ROS documented in this emergency department record has been reviewed and confirmed by me. Those systems with pertinent positive or negative responses have been documented in the HPI. All other systems are other negative and/or noncontributory. - Related Data Home Medications Medication Instructions Recorded Confirmed Anastrozole [Arimidex] 1 mg PO DAILY 12/22/16 08/07/18 Tolterodine Tartrate [Detrol LA] 4 mg PO HS 07/21/17 08/07/18 Melatonin 3 mg PO HS 10/13/17 08/07/18 risperiDONE [RisperDAL] 0.5 mg PO DAILY 11/10/17 08/07/18 Atorvastatin [Lipitor] 40 mg PO DAILY 03/03/18 08/07/18 Carvedilol [Coreg] 12.5 - 25 mg PO BID 03/03/18 08/07/18 Empagliflozin [Jardiance] 10 mg PO DAILY 03/03/18 08/07/18 Cholecalciferol [Vitamin D3] 1,000 unit PO DAILY 06/05/18 08/07/18 Cranberry Fruit Extract [Cranberry] 200 mg PO DAILY 06/05/18 08/07/18 Cyanocobalamin (Vitamin B-12) 1,000 mcg PO DAILY 06/05/18 08/07/18 [Vitamin B-12] Multivitamins, Thera [Multivitamin 1 tab PO DAILY 06/05/18 08/07/18 (formulary)] Ubidecarenone [Co Q-10] 100 mg PO DAILY 06/05/18 08/07/18 busPIRone HCl [Buspar] 5 mg PO HS 06/05/18 08/07/18 metFORMIN HCL [Glucophage] 500 mg PO BID 06/06/18 08/07/18 Acetaminophen Tab [Tylenol Tab] 650 mg PO Q6H PRN 07/31/18 08/07/18 Omeprazole 20 mg PO DAILY 07/31/18 08/07/18 levETIRAcetam [Keppra] 1,000 mg PO Q12HR 07/31/18 08/07/18 Previous Rx's Medication Instructions Recorded Aspirin 81 mg PO DAILY chew 07/23/17 Nitrofurantoin Monohyd/M-Cryst 100 mg PO Q12HR #14 cap 07/31/18 [Macrobid] Amoxic-Pot Clav 875-125Mg 1 tab PO BID 5 Days #10 tab 08/07/18 [Augmentin 875-125] Allergies Allergy/AdvReac Type Severity Reaction Status Date / Time Sulfa (Sulfonamide Allergy Unknown Unknown Verified 08/07/18 16:52 Antibiotics) egg AdvReac Diarrhea Verified 08/07/18 16:52 solifenacin [From [facility]] AdvReac Confusion/s Verified 08/07/18 16:52 haking Review of Systems ROS Statement: Those systems with pertinent positive or pertinent negative responses have been documented in the HPI. ROS Other: All systems not noted in ROS Statement are negative. 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 History of Any Multi-Drug Resistant Organisms: None Reported Past Surgical History: Hysterectomy Additional Past Surgical History / Comment(s): Total hysterectomy, right hip arthroplasty, laser surgery of the right eye of her bleeding, bladder suspension , right elbow metal plate , gamma knife procedure for meningoma lt side of brain 03-11-17 Past Anesthesia/Blood Transfusion Reactions: No Reported Reaction Past Psychological History: Anxiety, Bipolar, Depression Smoking Status: Former smoker Past Alcohol Use History: None Reported Past Drug Use History: None Reported - Past Family History Father Family Medical History: No Reported History Additional Family Medical History / Comment(s): Father is alive in his 80s and is a smoker. Patient does not know his medical history. Mother Family Medical History: No Reported History Additional Family Medical History / Comment(s): Mother at age 79 from Alzheimer's dementia. Sister(s) Family Medical History: Congestive Heart Failure (CHF) Additional Family Medical History / Comment(s): She has one sister that is from heart failure. Patient does not have any brothers. Patient has 2 daughters that are 45 and 42 years of age with no major medical problems. General Exam - General Exam Comments Initial Comments: PHYSICAL EXAM: General Impression: Alert and oriented x3, not in acute distress HEENT: Normocephalic atraumatic, extra-ocular movements intact, pupils equal and reactive to light bilaterally, mucous membranes moist. Cardiovascular: Heart regular rate and rhythm, S1&S2 audible, no murmurs, rubs or gallops Chest: Lungs clear to auscultation bilaterally, no rhonchi, no wheeze, no rales Abdomen: Bowel sounds present, abdomen soft, non-tender, non-distended, no organomegaly Musculoskeletal: Pulses present and equal in all extremities, no peripheral edema Motor: Power 5/5 bilaterally, no focal deficits noted Neurological: CN II-XII grossly intact, no focal motor or sensory deficits noted Skin: Intact with no visualized rashes Psych: Normal affect and mood Limitations: no limitations Course Vital Signs 08/07/18 16:37 Temperature 97.5 F L Pulse Rate 88 Respiratory 22 Rate Blood Pressure 144/84 O2 Sat by Pulse 98 Oximetry Medical Decision Making - Medical Decision Making ED course: 73-year-old female presents with clinical presentation consistent with urinary tract infection. Vital signs upon arrival are within normal limits. Physical examination is benign. Patient has good follow-up care. Urinalysis was obtained showing hemorrhagic cystitis. Metabolic G from the recent past was reviewed showing that patient has urine sensitive to Augmentin. Patient given 1 dose here. She is given prescription for Augmentin. Told to follow-up with a primary care physician for follow-up of symptoms. Patient told to return to the emergency department should she develop any worsening symptoms, flank pain or constitutional symptoms. She is understandable and agreeable to plan. Patient told to stay well-hydrated. - Lab Data Lab Results 08/07/18 Range/Units 18:10 Urine Color Light Yellow Urine Appearance Turbid H (Clear) Urine pH 6.0 (5.0-8.0) Ur Specific [place] 1.018 (1.001-1.035) Urine Protein 1+ H (Negative) Urine Glucose (UA) 4+ H (Negative) Urine Ketones Negative (Negative) Urine Blood Moderate H (Negative) Urine Nitrite Negative (Negative) Urine Bilirubin Negative (Negative) Urine Urobilinogen <2.0 (<2.0) mg/dL Ur Leukocyte Esterase Large H (Negative) Urine RBC 22 H (0-5) /hpf Urine WBC >182 H (0-5) /hpf Urine WBC Clumps Many H (None) /hpf Urine Mucus Rare H (None) /hpf Disposition Clinical Impression: UTI (urinary tract infection) Disposition: HOME SELF-CARE Condition: Good Instructions: Urinary Tract Infection in Women (ED) Prescriptions: Amoxic-Pot Clav 875-125Mg [Augmentin 875-125] 1 tab PO BID 5 Days #10 tab Is patient prescribed a controlled substance at d/c from ED?: No Referrals: Mani Hunt DO [Primary Care Provider] - 1-2 days Time of Disposition: 18:35
[2018-08-07 18:25] LABS: Appearance,Urine Turbid (Clear); Bilirubin,Urine Negative (Negative); Blood,Urine Moderate (Negative); Color,Urine Light Yellow; Glucose,Urine (UA) 4+ (Negative); Ketones,Urine Negative (Negative); Leukocyte Esterase,Urine Large (Negative); Mucus,Urine Rare /hpf; Nitrite,Urine Negative (Negative); Protein,Urine 1+ (Negative); RBC,Urine 22 /hpf (0-5); Specific Gravity,Urine 1.018 (1.001-1.035); Urobilinogen,Urine <2.0 mg/dL (<2.0); WBC,Urine >182 /hpf (0-5)
[2018-08-07] MEDS ORDERED: AMOXIC-POT CLAV 875-125MG 1 EACH TAB PO STA (18:32)
[2018-08-07 19:45] VITALS: BP 149/76; PULSE 83; RESP 16; TEMP 98.7
== END 2018-08-07 19:47 | disposition home or self-care (01) ==
LOC: EC 16:07
DX: N30.90 Cystitis, unspecified without hematuria (principal); E11.9 Type 2 diabetes mellitus without complications; K21.9 Gastro-esophageal reflux disease without esophagitis; E78.5 Hyperlipidemia, unspecified; I10 Essential (primary) hypertension; G40.909 Epilepsy, unspecified, not intractable, without status epilepticus; N32.81 Overactive bladder; F31.9 Bipolar disorder, unspecified; F41.9 Anxiety disorder, unspecified; Z85.3 Personal history of malignant neoplasm of breast; Z86.73 Personal history of transient ischemic attack (TIA), and cerebral infarction without residual deficits; Z87.440 Personal history of urinary (tract) infections; Z87.891 Personal history of nicotine dependence; Z79.84 Long term (current) use of oral hypoglycemic drugs; Z79.899 Other long term (current) drug therapy; Z88.2 Allergy status to sulfonamides; Z88.8 Allergy status to other drugs, medicaments and biological substances; Z91.012 Allergy to eggs; Z96.641 Presence of right artificial hip joint; Z90.710 Acquired absence of both cervix and uterus
CPT/HCPCS: 81001; 87086; 99283

== ENCOUNTER 2018-08-13 13:46 | Emergency (ER) | payer MEDICARE, BC ==
[2018-08-13 14:17] VITALS: TEMP 98.3
[2018-08-13 16:12] LABS: Appearance,Urine Cloudy (Clear); Bacteria,Urine Rare /hpf; Bilirubin,Urine Negative (Negative); Blood,Urine Small (Negative); Budding Yeast,Urine Few /hpf; Color,Urine Yellow; Glucose,Urine (UA) 4+ (Negative); Ketones,Urine Negative (Negative); Leukocyte Esterase,Urine Large (Negative); Mucus,Urine Rare /hpf; Nitrite,Urine Negative (Negative); PH, Urine 5.5 (5.0-8.0); Protein,Urine Trace (Negative); RBC,Urine 7 /hpf (0-5); Squamous Epithelial Cell,Urine 3 /hpf (0-4); Urobilinogen,Urine <2.0 mg/dL (<2.0)
[2018-08-13] MEDS ORDERED: SODIUM CHLORIDE 0.9% 500 ML 500 ML IV STA (16:57)
[2018-08-13] MEDS ORDERED: SODIUM CHLORIDE 0.9% 1,000 ML IV STA ×2 (16:57)
[2018-08-13] MEDS ORDERED: cefTRIAXone 2,000 MG in SODIUM CHLORIDE 0.9% 100 ML IVPB STA (16:58)
[2018-08-13 18:08] LABS: Basophils % (A) 1 %; Eosinophils # (A) 0.2 k/uL (0-0.7); Eosinophils % (A) 3 %; HCT 36.2 % (34.0-46.0); HGB 12.2 gm/dL (11.4-16.0); Lymphocytes # (A) 1.7 k/uL (1.0-4.8); Lymphocytes % (A) 23 %; MCH 28.9 pg (25.0-35.0); MCHC 33.6 g/dL (31.0-37.0); MCV 85.9 fL (80.0-100.0); Mean Platelet Volume 6.7; Monocytes # (A) 0.5 k/uL (0-1.0); Monocytes % (A) 7 %; Neutrophils # (A) 4.9 k/uL (1.3-7.7); Neutrophils % (A) 65 %; Platelet Count 239 k/uL (150-450); RBC 4.22 m/uL (3.80-5.40); RDW 13.7 % (11.5-15.5); WBC 7.5 k/uL (3.8-10.6)
--- NOTE | 2018-08-13 18:11 | ED ---
Altered Mental Status HPI - General Chief Complaint: Altered Mental Status Stated Complaint: mental health/confusion Time Seen by Provider: 08/13/18 16:41 Source: patient, RN notes reviewed, old records reviewed Mode of arrival: ambulatory Limitations: no limitations - History of Present Illness Initial Comments: This is a 73-year-old female the ER for evaluation of mental health altered mental status. Patient has history of mental disease bipolar, patient herself has no significant complaints but states is having some difficulty thinking and remembering things. Patient's states patient is just not acting normal , nausea appropriate, he states she is taking all medications as prescribed recent trauma no fevers noted. No nausea vomiting diarrhea MD Complaint: altered mental status, weakness -: hour(s) Severity: mild Consistency of Symptoms: waxing and waning Associated Symptoms: denies other symptoms - Related Data Home Medications Medication Instructions Recorded Confirmed Anastrozole [Arimidex] 1 mg PO DAILY 12/22/16 08/13/18 Tolterodine Tartrate [Detrol LA] 4 mg PO HS 07/21/17 08/13/18 Melatonin 3 mg PO HS 10/13/17 08/13/18 risperiDONE [RisperDAL] 0.5 mg PO HS 11/10/17 08/13/18 Atorvastatin [Lipitor] 40 mg PO DAILY 03/03/18 08/13/18 Carvedilol [Coreg] 12.5 mg PO BID 03/03/18 08/13/18 Empagliflozin [Jardiance] 10 mg PO DAILY 03/03/18 08/13/18 Cholecalciferol [Vitamin D3] 1,000 unit PO DAILY 06/05/18 08/13/18 Cyanocobalamin (Vitamin B-12) 1,000 mcg PO DAILY 06/05/18 08/13/18 [Vitamin B-12] Multivitamins, Thera [Multivitamin 1 tab PO DAILY 06/05/18 08/13/18 (formulary)] Ubidecarenone [Co Q-10] 100 mg PO DAILY 06/05/18 08/13/18 busPIRone HCl [Buspar] 10 mg PO HS 06/05/18 08/13/18 metFORMIN HCL [Glucophage] 500 mg PO BID 06/06/18 08/13/18 Acetaminophen Tab [Tylenol Tab] 650 mg PO Q6H PRN 07/31/18 08/13/18 Omeprazole 20 mg PO AC-SUPPER 07/31/18 08/13/18 levETIRAcetam [Keppra] 1,000 mg PO Q12HR 07/31/18 08/13/18 Cranberry 8400mg 8,400 mg PO BID 08/13/18 08/13/18 Urivarx 840 mg PO BID 08/13/18 08/13/18 busPIRone HCl [Buspar] 5 mg PO DAILY 08/13/18 08/13/18 Previous Rx's Medication Instructions Recorded Aspirin 81 mg PO DAILY chew 07/23/17 Nitrofurantoin Monohyd/M-Cryst 100 mg PO Q12HR #14 cap 08/13/18 [Macrobid] Allergies Allergy/AdvReac Type Severity Reaction Status Date / Time Sulfa (Sulfonamide Allergy Unknown Unknown Verified 08/13/18 16:41 Antibiotics) egg AdvReac Diarrhea Verified 08/13/18 16:41 solifenacin [From Vesicare] AdvReac Confusion/s Verified 08/13/18 16:41 lindsey Review of Systems ROS Statement: Those systems with pertinent positive or pertinent negative responses have been documented in the HPI. ROS Other: All systems not noted in ROS Statement are negative. 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 History of Any Multi-Drug Resistant Organisms: None Reported Past Surgical History: Hysterectomy Additional Past Surgical History / Comment(s): Total hysterectomy, right hip arthroplasty, laser surgery of the right eye of her bleeding, bladder suspension , right elbow metal plate , gamma knife procedure for meningoma lt side of brain 03-11-17 Past Anesthesia/Blood Transfusion Reactions: No Reported Reaction Past Psychological History: Anxiety, Bipolar, Depression Smoking Status: Former smoker Past Alcohol Use History: None Reported Past Drug Use History: None Reported - Past Family History Father Family Medical History: No Reported History Additional Family Medical History / Comment(s): Father is alive in his 80s and is a smoker. Patient does not know his medical history. Mother Family Medical History: No Reported History Additional Family Medical History / Comment(s): Mother at age 79 from Alzheimer's dementia. Sister(s) Family Medical History: Congestive Heart Failure (CHF) Additional Family Medical History / Comment(s): She has one sister that is from heart failure. Patient does not have any brothers. Patient has 2 daughters that are 45 and 42 years of age with no major medical problems. General Exam Limitations: no limitations General appearance: alert, in no apparent distress Head exam: Present: atraumatic, normocephalic, normal inspection Eye exam: Present: normal appearance, PERRL, EOMI. Absent: scleral icterus, conjunctival injection, periorbital swelling ENT exam: Present: normal exam, mucous membranes moist Neck exam: Present: normal inspection. Absent: tenderness, meningismus, lymphadenopathy Respiratory exam: Present: normal lung sounds bilaterally. Absent: respiratory distress, wheezes, rales, rhonchi, stridor Cardiovascular Exam: Present: regular rate, normal rhythm, normal heart sounds. Absent: systolic murmur, diastolic murmur, rubs, gallop, clicks GI/Abdominal exam: Present: soft, normal bowel sounds. Absent: distended, tenderness, guarding, rebound, rigid Extremities exam: Present: normal inspection, full ROM, normal capillary refill. Absent: tenderness, pedal edema, joint swelling, calf tenderness Back exam: Present: normal inspection Neurological exam: Present: alert, oriented X3, CN II-XII intact Psychiatric exam: Present: normal affect, normal mood Skin exam: Present: warm, dry, intact, normal color. Absent: rash Course Vital Signs 08/13/18 08/13/18 08/13/18 14:10 17:30 18:00 Temperature 98.3 F Pulse Rate 75 70 68 Respiratory 18 16 17 Rate Blood Pressure 100/67 128/96 160/82 O2 Sat by Pulse 99 100 Oximetry 08/13/18 08/13/18 18:30 19:00 Temperature Pulse Rate 75 83 Respiratory 20 28 H Rate Blood Pressure 143/76 150/81 O2 Sat by Pulse 100 100 Oximetry Medical Decision Making - Medical Decision Making 73 female the ER with mild change in mental status, patient is urinary tract infection, patient will be given antibiotics and hydration in the ER feeling improved. We'll discharge home - Lab Data Result diagrams: 08/13/18 17:45 08/13/18 17:45 Lab Results 08/13/18 08/13/18 08/13/18 Range/Units 14:12 17:45 17:45 WBC 7.5 (3.8-10.6) k/uL RBC 4.22 (3.80-5.40) m/uL Hgb 12.2 (11.4-16.0) gm/dL Hct 36.2 (34.0-46.0) % MCV 85.9 (80.0-100.0) fL MCH 28.9 (25.0-35.0) pg MCHC 33.6 (31.0-37.0) g/dL RDW 13.7 (11.5-15.5) % Plt Count 239 (150-450) k/uL Neutrophils % 65 % Lymphocytes % 23 % Monocytes % 7 % Eosinophils % 3 % Basophils % 1 % Neutrophils # 4.9 (1.3-7.7) k/uL Lymphocytes # 1.7 (1.0-4.8) k/uL Monocytes # 0.5 (0-1.0) k/uL Eosinophils # 0.2 (0-0.7) k/uL Basophils # 0.0 (0-0.2) k/uL Sodium (137-145) mmol/L Potassium (3.5-5.1) mmol/L Chloride (98-107) mmol/L Carbon Dioxide (22-30) mmol/L Anion Gap mmol/L BUN (7-17) mg/dL Creatinine (0.52-1.04) mg/dL Est GFR (CKD-EPI)AfAm (>60 ml/min/1.73 sqM) Est GFR (CKD-EPI)NonAf (>60 ml/min/1.73 sqM) Glucose (74-99) mg/dL Plasma Lactic Acid Rony (0.7-2.0) mmol/L Calcium (8.4-10.2) mg/dL Phosphorus (2.5-4.5) mg/dL Magnesium (1.6-2.3) mg/dL Total Bilirubin (0.2-1.3) mg/dL AST (14-36) U/L ALT (9-52) U/L Alkaline Phosphatase (38-126) U/L Total Creatine Kinase 66 (30-135) U/L CK-MB (CK-2) 0.4 (0.0-2.4) ng/mL CK-MB (CK-2) Rel Index 0.6 Troponin I <0.012 (0.000-0.034) ng/mL Total Protein (6.3-8.2) g/dL Albumin (3.5-5.0) g/dL Urine Color Yellow Urine Appearance Cloudy H (Clear) Urine pH 5.5 (5.0-8.0) Ur Specific [place] 1.020 (1.001-1.035) Urine Protein Trace H (Negative) Urine Glucose (UA) 4+ H (Negative) Urine Ketones Negative (Negative) Urine Blood Small H (Negative) Urine Nitrite Negative (Negative) Urine Bilirubin Negative (Negative) Urine Urobilinogen <2.0 (<2.0) mg/dL Ur Leukocyte Esterase Large H (Negative) Urine RBC 7 H (0-5) /hpf Urine WBC >182 H (0-5) /hpf Urine WBC Clumps Many H (None) /hpf Ur Squamous Epith Cells 3 (0-4) /hpf Urine Bacteria Rare H (None) /hpf Urine Mucus Rare H (None) /hpf Urine Yeast (Budding) Few H (None) /hpf 08/13/18 08/13/18 Range/Units 17:45 17:45 WBC (3.8-10.6) k/uL RBC (3.80-5.40) m/uL Hgb (11.4-16.0) gm/dL Hct (34.0-46.0) % MCV (80.0-100.0) fL MCH (25.0-35.0) pg MCHC (31.0-37.0) g/dL RDW (11.5-15.5) % Plt Count (150-450) k/uL Neutrophils % % Lymphocytes % % Monocytes % % Eosinophils % % Basophils % % Neutrophils # (1.3-7.7) k/uL Lymphocytes # (1.0-4.8) k/uL Monocytes # (0-1.0) k/uL Eosinophils # (0-0.7) k/uL Basophils # (0-0.2) k/uL Sodium 140 (137-145) mmol/L Potassium 4.3 (3.5-5.1) mmol/L Chloride 106 (98-107) mmol/L Carbon Dioxide 24 (22-30) mmol/L Anion Gap 10 mmol/L BUN 17 (7-17) mg/dL Creatinine 0.59 (0.52-1.04) mg/dL Est GFR (CKD-EPI)AfAm >90 (>60 ml/min/1.73 sqM) Est GFR (CKD-EPI)NonAf >90 (>60 ml/min/1.73 sqM) Glucose 105 H (74-99) mg/dL Plasma Lactic Acid Rony 2.4 H* (0.7-2.0) mmol/L Calcium 9.8 (8.4-10.2) mg/dL Phosphorus 3.5 (2.5-4.5) mg/dL Magnesium 1.8 (1.6-2.3) mg/dL Total Bilirubin 0.4 (0.2-1.3) mg/dL AST 18 (14-36) U/L ALT 20 (9-52) U/L Alkaline Phosphatase 116 (38-126) U/L Total Creatine Kinase (30-135) U/L CK-MB (CK-2) (0.0-2.4) ng/mL CK-MB (CK-2) Rel Index Troponin I (0.000-0.034) ng/mL Total Protein 7.0 (6.3-8.2) g/dL Albumin 3.9 (3.5-5.0) g/dL Urine Color Urine Appearance (Clear) Urine pH (5.0-8.0) Ur Specific [place] (1.001-1.035) Urine Protein (Negative) Urine Glucose (UA) (Negative) Urine Ketones (Negative) Urine Blood (Negative) Urine Nitrite (Negative) Urine Bilirubin (Negative) Urine Urobilinogen (<2.0) mg/dL Ur Leukocyte Esterase (Negative) Urine RBC (0-5) /hpf Urine WBC (0-5) /hpf Urine WBC Clumps (None) /hpf Ur Squamous Epith Cells (0-4) /hpf Urine Bacteria (None) /hpf Urine Mucus (None) /hpf Urine Yeast (Budding) (None) /hpf Disposition Clinical Impression: Urinary tract infection Disposition: HOME SELF-CARE Condition: Fair Instructions: Urinary Tract Infection in Women (ED) Prescriptions: Nitrofurantoin Monohyd/M-Cryst [Macrobid] 100 mg PO Q12HR #14 cap Is patient prescribed a controlled substance at d/c from ED?: No Referrals: Mani Hunt DO [Primary Care Provider] - 1-2 days
[2018-08-13 18:19] LABS: ALT 20 U/L (9-52); AST 18 U/L (14-36); Albumin 3.9 g/dL (3.5-5.0); Alkaline Phosphatase 116 U/L (38-126); Anion Gap 10 mmol/L; Blood Urea Nitrogen 17 mg/dL (7-17); Calcium 9.8 mg/dL (8.4-10.2); Carbon Dioxide 24 mmol/L (22-30); Chloride 106 mmol/L (98-107); Glucose 105 mg/dL (74-99); Magnesium 1.8 mg/dL (1.6-2.3); Phosphorus 3.5 mg/dL (2.5-4.5); Potassium 4.3 mmol/L (3.5-5.1); Sodium 140 mmol/L (137-145); Total Bilirubin 0.4 mg/dL (0.2-1.3)
[2018-08-13 18:21] LABS: Creatine Kinase 66 U/L (30-135)
[2018-08-13 18:33] LABS: Creatine Kinase MB 0.4 ng/mL (0.0-2.4); Troponin I <0.012 ng/mL (0.000-0.034)
[2018-08-13] MEDS ORDERED: NITROFURANTOIN MONOHYD/M-CRYST 100 MG CAP PO STA (19:00)
[2018-08-13 19:15] VITALS: BP 150/81; PULSE 83; RESP 28
== END 2018-08-13 19:36 | disposition home or self-care (01) ==
LOC: EC 13:46
DX: N39.0 Urinary tract infection, site not specified (principal); R53.1 Weakness; R41.82 Altered mental status, unspecified; E11.9 Type 2 diabetes mellitus without complications; K21.9 Gastro-esophageal reflux disease without esophagitis; E78.5 Hyperlipidemia, unspecified; I10 Essential (primary) hypertension; G40.909 Epilepsy, unspecified, not intractable, without status epilepticus; F31.9 Bipolar disorder, unspecified; F41.9 Anxiety disorder, unspecified; Z87.891 Personal history of nicotine dependence; Z86.73 Personal history of transient ischemic attack (TIA), and cerebral infarction without residual deficits; Z85.3 Personal history of malignant neoplasm of breast; Z90.710 Acquired absence of both cervix and uterus; Z96.641 Presence of right artificial hip joint; Z98.890 Other specified postprocedural states; Z79.84 Long term (current) use of oral hypoglycemic drugs; Z79.899 Other long term (current) drug therapy; Z88.2 Allergy status to sulfonamides; Z88.8 Allergy status to other drugs, medicaments and biological substances; Z91.012 Allergy to eggs
CPT/HCPCS: 36415; 80053; 81001; 82550; 82553; 83605; 83735; 84100; 84484; 85025; 87040; 87086; 96361; 96365; 99285

== ENCOUNTER 2018-08-17 16:32 | Inpatient (IN) | payer MEDICARE, BC ==
--- NOTE | 2018-08-17 16:57 | ED ---
General Adult HPI - General Chief complaint: Recheck/Abnormal Lab/Rx Stated complaint: Confused, Poss UTI Time Seen by Provider: 08/17/18 16:56 Source: patient Mode of arrival: ambulatory Limitations: no limitations - History of Present Illness Initial comments: 73-year-old female with past medical history of type 2 diabetes recurring UTIs for "months" presenting today for chief complaint of sent by primary for "worsening UTI". Patient states that she has had on and off urinary tract infections for months now, she states that they have made her feel out of it-pt has difficulty describing this complaint. Patient has been managed on multiple "antibiotics" by her primary care provider cFares including macrobid. Urine culture results at 08/13/2018 positive for MRSA. Pt was sent from primary care provider for IV antibiotics for treatment of UTI, evaluation for confusion x 1 month. Pt denies head injury, mm weakness of UE/LE, difficulty speaking, ataxia , parathesias, facial assymmetry, chest pain, shortness of breath, jaw pain, fever, chills, back pain, nausea, vomiting, abdominal pain, palpatations, cold intolerance, pallor. Pt states she simply feels out of it and as if she has difficulty remembering things. Pt had an appointment today with primary provider where she received culture results (+) for MRSA and expressed concern for confusion and was sent for evaluation and IV abx. Upon arrival pt is AAOx4. Pt afebrile, HR WNL. BP stable. No signs of toxicity or acute AMS. - Related Data Home Medications Medication Instructions Recorded Confirmed Anastrozole [Arimidex] 1 mg PO DAILY 12/22/16 08/17/18 Tolterodine Tartrate [Detrol LA] 4 mg PO HS 07/21/17 08/17/18 Melatonin 3 mg PO HS 10/13/17 08/17/18 risperiDONE [RisperDAL] 0.5 mg PO HS 11/10/17 08/17/18 Atorvastatin [Lipitor] 40 mg PO DAILY 03/03/18 08/17/18 Carvedilol [Coreg] 12.5 mg PO BID 03/03/18 08/17/18 Empagliflozin [Jardiance] 10 mg PO DAILY 03/03/18 08/17/18 Cholecalciferol [Vitamin D3] 1,000 unit PO DAILY 06/05/18 08/17/18 Cyanocobalamin (Vitamin B-12) 1,000 mcg PO DAILY 06/05/18 08/17/18 [Vitamin B-12] Multivitamins, Thera [Multivitamin 1 tab PO DAILY 06/05/18 08/17/18 (formulary)] Ubidecarenone [Co Q-10] 100 mg PO DAILY 06/05/18 08/17/18 busPIRone HCl [Buspar] 10 mg PO HS 06/05/18 08/17/18 metFORMIN HCL [Glucophage] 500 mg PO BID 06/06/18 08/17/18 Acetaminophen Tab [Tylenol Tab] 650 mg PO Q6H PRN 07/31/18 08/17/18 Omeprazole 20 mg PO AC-SUPPER 07/31/18 08/17/18 levETIRAcetam [Keppra] 1,000 mg PO Q12HR 07/31/18 08/17/18 Cranberry 8400mg 8,400 mg PO BID 08/13/18 08/17/18 Urivarx 840 mg PO BID 08/13/18 08/17/18 busPIRone HCl [Buspar] 5 mg PO DAILY 08/13/18 08/17/18 Previous Rx's Medication Instructions Recorded Aspirin 81 mg PO DAILY chew 07/23/17 Nitrofurantoin Monohyd/M-Cryst 100 mg PO Q12HR #14 cap 08/13/18 [Macrobid] Allergies Allergy/AdvReac Type Severity Reaction Status Date / Time Sulfa (Sulfonamide Allergy Unknown Unknown Verified 08/17/18 17:11 Antibiotics) egg AdvReac Diarrhea Verified 08/17/18 17:11 solifenacin [From Vesicare] AdvReac Confusion/s Verified 08/17/18 17:11 haking Review of Systems ROS Statement: Those systems with pertinent positive or pertinent negative responses have been documented in the HPI. ROS Other: All systems not noted in ROS Statement are negative. Constitutional: Denies: fever, chills, night sweats ENT: Denies: ear pain, throat pain Respiratory: Denies: cough, dyspnea, wheezes, hemoptysis Cardiovascular: Denies: chest pain, palpitations, dyspnea on exertion Gastrointestinal: Denies: abdominal pain, nausea, vomiting Genitourinary: Denies: urgency, dysuria, frequency, hematuria Musculoskeletal: Denies: back pain Skin: Denies: rash, lesions Neurological: Reports: weakness, confusion. Denies: headache, numbness, paresthesias, abnormal gait Past Medical History Past Medical History: Cancer, CVA/TIA, Diabetes Mellitus, GERD/Reflux, Hyperlipidemia, Hypertension, Seizure Disorder Additional Past Medical History / Comment(s): Intracranial bleed July 2015, overactive bladder, multi UTI- ecoli, Breast cancer,meningoma lt side of brain - had gamma knife procedure march 11 2017, RT bx,lumpectomy, lymph node removal." had seizure like symptoms on several ocassions but never got a clear answer if it was". History of Any Multi-Drug Resistant Organisms: CRE, MRSA Date of last positivie culture/infection: 08/13/18 MDRO Source:: urine. e coli,mrsa Past Surgical History: Hysterectomy Additional Past Surgical History / Comment(s): Total hysterectomy, right hip arthroplasty, laser surgery of the right eye of her bleeding, bladder suspension , right elbow metal plate , gamma knife procedure for meningoma lt side of brain 03-11-17 Past Anesthesia/Blood Transfusion Reactions: No Reported Reaction Past Psychological History: Anxiety, Bipolar, Depression Smoking Status: Former smoker Past Alcohol Use History: None Reported Past Drug Use History: None Reported - Past Family History Father Family Medical History: No Reported History Additional Family Medical History / Comment(s): Father is alive in his 80s and is a smoker. Patient does not know his medical history. Mother Family Medical History: No Reported History Additional Family Medical History / Comment(s): Mother at age 79 from Alzheimer's dementia. Sister(s) Family Medical History: Congestive Heart Failure (CHF) Additional Family Medical History / Comment(s): She has one sister that is from heart failure. Patient does not have any brothers. Patient has 2 daughters that are 45 and 42 years of age with no major medical problems. General Exam - General Exam Comments Initial Comments: General: The patient is awake and alert, in no distress, and does not appear acutely ill. Eye: Pupils are equal, round and reactive to light, extra-ocular movements are intact. No nystagmus. There is normal conjunctiva bilaterally. No signs of icterus. Ears, nose, mouth and throat: There are moist mucous membranes and no oral lesions. Neck: The neck is supple, there is no tenderness or JVD. Cardiovascular: There is a regular rate and rhythm. No murmur, rub or gallop is appreciated. Respiratory: Lungs are clear to auscultation, respirations are non-labored, breath sounds are equal. No wheezes, stridor, rales, or rhonchi. Gastrointestinal: Soft, non-distended, non-tender abdomen without masses or organomegaly noted. There is no rebound or guarding present. No CVA tenderness. Bowel sounds are unremarkable. No tenderness to palpation the superior bladder margin. Musculoskeletal: Normal ROM, no tenderness. Strength 5/5. Sensation intact. Pulses equal bilaterally 2+. Neurological: A&O x 3. CN II-XII intact, There are no obvious motor or sensory deficits. Coordination appears grossly intact. Speech is normal. Skin: Skin is warm and dry and no rashes or lesions are noted. No leg swelling or LE edema Psychiatric: Cooperative, appropriate mood & affect, normal judgment. Limitations: no limitations Course Vital Signs 08/17/18 08/17/18 08/17/18 17:58 18:00 18:41 Temperature 96.9 F L Pulse Rate 86 Respiratory 18 Rate Blood Pressure 135/80 O2 Sat by Pulse 97 98 Oximetry 08/17/18 19:48 Temperature 99 F Pulse Rate 86 Respiratory 18 Rate Blood Pressure 122/64 O2 Sat by Pulse 97 Oximetry EKG Findings - EKG Comments: EKG Findings:: A 12-lead EKG was performed and shows the following: Rate is 87bpm, and rhythm is normal sinus. There are QRS complexes and normal R-wave progression. ST segments have no elevation or depression, and IA segments appear normal. There does appear to be minimal voltage criteria concerning for left ventricular hypertrophy. Otherwise unremarkable. Interpretted by myself and Dr. Shin. Compared to previous EKG, no acute findings. Medical Decision Making - Medical Decision Making 73yo female with hx of (+) MRSA urine culture and confusion concerning for sepsis. I reviewed culture, it was positive for E.coli and MRSA. [facility] no growth to date. Repeat blood cultures. WBC count WNL, lactic acid (-). Pt started on broad spectrum antibiotics. Pt given 1L bolus. Started on broad spectrum antibiotics, pt had sensitivity to vancomycin on urine culture 08/13. Urine analysis consistent with UTI. Given cc of confusion and pt RF ACS w/u also performed (-) at this time. CXR (-). had mentioned that she has had TIA in the past, CT wo obtained to r/o mass or CVA causing confusion/memory impairment there were no acute findings. At this time given pt cc and +MRSA cultures I feel pt should be admitted for IV antibiotics and I&D consultation. Dr. Esteves accepted admission. Pt agreeable with admission. Case discussed in detail with attending Dr. Shin prior to admission who spoke with Dr. Esteves directly. No further recommendations from admitting provider. Pt transferred to the floor in stable condition. - Lab Data Result diagrams: 08/17/18 18:00 08/17/18 18:00 Lab Results 08/17/18 08/17/18 08/17/18 Range/Units 18:00 18:00 18:00 WBC 10.3 (3.8-10.6) k/uL RBC 4.23 (3.80-5.40) m/uL Hgb 12.0 (11.4-16.0) gm/dL Hct 35.9 (34.0-46.0) % MCV 84.9 (80.0-100.0) fL MCH 28.3 (25.0-35.0) pg MCHC 33.3 (31.0-37.0) g/dL RDW 13.5 (11.5-15.5) % Plt Count 246 (150-450) k/uL Neutrophils % 79 % Lymphocytes % 12 % Monocytes % 6 % Eosinophils % 2 % Basophils % 0 % Neutrophils # 8.1 H (1.3-7.7) k/uL Lymphocytes # 1.2 (1.0-4.8) k/uL Monocytes # 0.6 (0-1.0) k/uL Eosinophils # 0.2 (0-0.7) k/uL Basophils # 0.0 (0-0.2) k/uL Sodium 138 (137-145) mmol/L Potassium 4.4 (3.5-5.1) mmol/L Chloride 104 (98-107) mmol/L Carbon Dioxide 23 (22-30) mmol/L Anion Gap 11 mmol/L BUN 18 H (7-17) mg/dL Creatinine 0.67 (0.52-1.04) mg/dL Est GFR (CKD-EPI)AfAm >90 (>60 ml/min/1.73 sqM) Est GFR (CKD-EPI)NonAf 89 (>60 ml/min/1.73 sqM) Glucose 128 H (74-99) mg/dL Plasma Lactic Acid Rony (0.7-2.0) mmol/L Calcium 9.8 (8.4-10.2) mg/dL Total Bilirubin 0.7 (0.2-1.3) mg/dL AST 19 (14-36) U/L ALT 25 (9-52) U/L Alkaline Phosphatase 113 (38-126) U/L Troponin I <0.012 (0.000-0.034) ng/mL Total Protein 6.9 (6.3-8.2) g/dL Albumin 3.8 (3.5-5.0) g/dL 08/17/18 Range/Units 18:00 WBC (3.8-10.6) k/uL RBC (3.80-5.40) m/uL Hgb (11.4-16.0) gm/dL Hct (34.0-46.0) % MCV (80.0-100.0) fL MCH (25.0-35.0) pg MCHC (31.0-37.0) g/dL RDW (11.5-15.5) % Plt Count (150-450) k/uL Neutrophils % % Lymphocytes % % Monocytes % % Eosinophils % % Basophils % % Neutrophils # (1.3-7.7) k/uL Lymphocytes # (1.0-4.8) k/uL Monocytes # (0-1.0) k/uL Eosinophils # (0-0.7) k/uL Basophils # (0-0.2) k/uL Sodium (137-145) mmol/L Potassium (3.5-5.1) mmol/L Chloride (98-107) mmol/L Carbon Dioxide (22-30) mmol/L Anion Gap mmol/L BUN (7-17) mg/dL Creatinine (0.52-1.04) mg/dL Est GFR (CKD-EPI)AfAm (>60 ml/min/1.73 sqM) Est GFR (CKD-EPI)NonAf (>60 ml/min/1.73 sqM) Glucose (74-99) mg/dL Plasma Lactic Acid Rony 1.6 (0.7-2.0) mmol/L Calcium (8.4-10.2) mg/dL Total Bilirubin (0.2-1.3) mg/dL AST (14-36) U/L ALT (9-52) U/L Alkaline Phosphatase (38-126) U/L Troponin I (0.000-0.034) ng/mL Total Protein (6.3-8.2) g/dL Albumin (3.5-5.0) g/dL Disposition Clinical Impression: Confusion, MRSA (methicillin resistant staph aureus) culture positive, UTI ( urinary tract infection) Disposition: ADMITTED IP TO THIS [facility] Condition: Stable Is patient prescribed a controlled substance at d/c from ED?: No Time of Disposition: 19:35 Decision to Admit Reason: Admit from EC Decision Date: 08/17/18 Decision Time: 19:35
[2018-08-17] MEDS ORDERED: SODIUM CHLORIDE 0.9% 1,000 ML IV ONE (17:08)
[2018-08-17 18:22] LABS: Basophils % (A) 0 %; Eosinophils # (A) 0.2 k/uL (0-0.7); Eosinophils % (A) 2 %; HCT 35.9 % (34.0-46.0); Lymphocytes # (A) 1.2 k/uL (1.0-4.8); Lymphocytes % (A) 12 %; MCH 28.3 pg (25.0-35.0); MCHC 33.3 g/dL (31.0-37.0); MCV 84.9 fL (80.0-100.0); Mean Platelet Volume 6.3; Monocytes # (A) 0.6 k/uL (0-1.0); Monocytes % (A) 6 %; Neutrophils # (A) 8.1 k/uL (1.3-7.7); Neutrophils % (A) 79 %; Platelet Count 246 k/uL (150-450); RBC 4.23 m/uL (3.80-5.40); RDW 13.5 % (11.5-15.5); WBC 10.3 k/uL (3.8-10.6)
[2018-08-17 18:33] LABS: ALT 25 U/L (9-52); AST 19 U/L (14-36); Albumin 3.8 g/dL (3.5-5.0); Alkaline Phosphatase 113 U/L (38-126); Anion Gap 11 mmol/L; Blood Urea Nitrogen 18 mg/dL (7-17); Calcium 9.8 mg/dL (8.4-10.2); Carbon Dioxide 23 mmol/L (22-30); Chloride 104 mmol/L (98-107); Glucose 128 mg/dL (74-99); Potassium 4.4 mmol/L (3.5-5.1); Sodium 138 mmol/L (137-145); Total Bilirubin 0.7 mg/dL (0.2-1.3); Total Protein 6.9 g/dL (6.3-8.2)
[2018-08-17] MEDS ORDERED: ACETAMINOPHEN TAB 325 MG TAB PO PRN ×2 (18:41→21:11)
[2018-08-17] MEDS ORDERED: NALOXONE 0.4 MG/ML 1 ML VIAL IV PRN (18:41)
[2018-08-17] MEDS ORDERED: IBUPROFEN 400 MG TAB PO PRN (18:41)
[2018-08-17] MEDS ORDERED: VANCOMYCIN IV PER PHARMACY 1 EACH MISC MISCELLANE PRN (18:44)
[2018-08-17] MEDS ORDERED: VANCOMYCIN 1,250 MG in SODIUM CHLORIDE 0.9% 250 ML IVPB STA (18:54)
--- NOTE | 2018-08-17 19:21 | XR ---
EXAMINATION TYPE: XR chest 2V DATE OF EXAM: 08/17/2018 COMPARISON: 03/03/2018 HISTORY: Altered mental status TECHNIQUE: Frontal and lateral views of the chest are obtained. FINDINGS: There is no heart failure nor confluent pneumonic infiltrate. Heart size is normal. There are multiple old right-sided healed rib fractures. Thoracic aorta is atheromatous. There are chest le ads. There is spurring in the thoracic spine. IMPRESSION: No active cardiopulmonary disease. Normal heart. No change compared to old exam.
[2018-08-17] MEDS: SODIUM CHLORIDE 0.9% 1,000 ML IV SCH (19:47)
[2018-08-17 20:01] LABS: Appearance,Urine Turbid (Clear); Bilirubin,Urine Negative (Negative); Blood,Urine Small (Negative); Budding Yeast,Urine Many /hpf; Color,Urine Yellow; Glucose,Urine (UA) 4+ (Negative); Ketones,Urine Negative (Negative); Leukocyte Esterase,Urine Large (Negative); Nitrite,Urine Negative (Negative); PH, Urine 5.5 (5.0-8.0); Protein,Urine 1+ (Negative); RBC,Urine 11 /hpf (0-5); Specific Gravity,Urine 1.016 (1.001-1.035); Urobilinogen,Urine <2.0 mg/dL (<2.0); WBC,Urine >182 /hpf (0-5)
--- NOTE | 2018-08-17 20:30 | CT ---
EXAMINATION TYPE: CT brain wo con DATE OF EXAM: 08/17/2018 COMPARISON: 06/07/2018 HISTORY: Confusion, UTI. CT DLP: 1036.4 mGycm Automated exposure control for dose reduction was used. FINDINGS: There is cerebral cortical atrophy. There is no mass effect nor midline shift. There is no sign of in tracranial hemorrhage. There is a irregular 2 cm area of hypodensity in the left parietal lobe cortex . There is a 5 mm focus of calcification. This is unchanged compared to old exam. Calvarium is intact . IMPRESSION: CEREBRAL ATROPHY. 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 NO ACUTE INTRACRANIAL ABNORM ALITY.
[2018-08-17] MEDS: busPIRone HCl 10 MG TAB PO SCH (22:15)
[2018-08-17] MEDS: OXYBUTYNIN 10 MG TAB.ER.24 PO SCH (22:16)
[2018-08-17] MEDS: MELATONIN 3 MG TABLET PO SCH (22:16)
[2018-08-17] MEDS: levETIRAcetam 500 MG TAB PO SCH (22:16)
[2018-08-17] MEDS: risperiDONE 0.5 MG TAB PO SCH (22:16)
--- NOTE | 2018-08-17 23:31 | HP ---
HISTORY AND PHYSICAL DATE OF ADMISSION: 08/17/2018 DATE OF SERVICE: 08/17/2018 PRESENTING COMPLAINT: Acute confusion. HISTORY OF PRESENTING COMPLAINT: This is a 73-year-old patient who follows with Dr. Duvall. The patient's chronic stable medical conditions include seizures, hypertension, diabetes, hyperlipidemia, GERD, intracranial bleed in 2014, overactive bladder. The patient has been having recurrent UTIs. Was sent in again for the same through family doctor. was here earlier and now has left. The patient becomes confused, does not know why she is here or what she is here for. Unclear how her appetite is. Denies any abdominal pain at the present time. Lying in bed, watching television. Rather confused. REVIEW OF SYSTEMS: Was attempted. CONSTITUTIONAL: Tired. HEENT: None. RESPIRATORY: None. CARDIOVASCULAR: None. GASTROINTESTINAL: None. GENITOURINARY: Urinary frequency. DERMATOLOGICAL, HEMATOLOGIC, LYMPHATIC: None. PSYCHIATRY: Confusion. NEUROLOGICAL: None. PAST MEDICAL HISTORY: Diabetes, GERD, hyperlipidemia, hypertension, intracranial bleed in 2014, overactive bladder, multiple UTIs, breast cancer, meningioma on the left side and procedure in 2017, right breast lumpectomy, lymph node removed, unclear if actually patient had seizure activities, incontinent of urine. PAST SURGICAL HISTORY: Total hysterectomy, right hip arthroplasty, laser surgery, right eye for bleeding, bladder suspension, right elbow metal plate, meningioma left side of the brain in 2017. PSYCH HISTORY: History of bipolar. SOCIAL HISTORY: Lives with her spouse. Does not smoke. No recreational drugs. Does use a cane. FAMILY HISTORY: Patient does not recall. HOME MEDICATIONS: 1. Risperdal 0.5 mg q.h.s. 2. Metformin 5 mg p.o. b.i.d. 3. Keppra 1000 mg q.12. 4. BuSpar 5 mg in the morning, 10 mg at night. 5. Urivrx 840 mg b.i.d. 6. CO Q 10 100 mg p.o. daily. 7. Detrol LA 4 mg p.o. q.h.s. 8. Omeprazole 20 mg with supper. 9. Nitrofurantoin 100 mg q.12. 10.Multivitamin one tab p.o. daily. 11.Melatonin 3 mg q.h.s. 12.Jardiance 10 mg p.o. daily. 13.Vitamin B12 1000 mcg p.o. daily. 14.Cranberry 84 mg p.o. b.i.d. 15.Vitamin D3 1000 units p.o. daily. 16.Coreg 12.5 mg p.o. b.i.d. 17.Lipitor 40 mg p.o. daily. 18.Aspirin 81 mg p.o. daily. 19. 1 mg p.o. daily. ALLERGIES: ALLERGIES TO SULFA, EGG, VESICARE. PHYSICAL EXAMINATION: VITAL SIGNS: Temperature 99, pulse 86, respiratory 18, blood pressure 122/64, pulse ox 97% on room air. GENERAL APPEARANCE: Lying in bed, awake, comfortable. EYES: Pupils are equal. Conjunctivae normal. HEENT: External appearance of nose and ears normal. Oral cavity normal. NECK: JVD not raised. Mass not palpable. Respiratory effort normal. LUNGS are clear. CARDIOVASCULAR: 1st and second sounds normal. No edema. ABDOMEN: Soft, nontender. Liver and spleen not palpable. LYMPHATICS: No lymph nodes palpable in the neck or axilla. PSYCHIATRY: She knows she is in the hospital. She does not know why she is here or who brought her here. NEUROLOGICAL: Pupils equal. Cranial nerves intact. No facial asymmetry. Power and sensation grossly intact. INVESTIGATIONS: White count 10.3, hemoglobin 12. Potassium 4.4, BUN 18, creatinine 0.67. UA positive for leukocyte esterase, WBCs. ASSESSMENT: 1. Acute urinary tract infection probably from cystitis, possibly contributing to patient's acute delirium. 2. Questionable seizure disorder. 3. Essential hypertension. 4. History of meningioma treated with gamma knife. 5. Diabetes mellitus type 2 on oral hypoglycemics. 6. Hyperlipidemia. 7. Gastroesophageal reflux disease. 8. History of intracranial bleed in July of 2015. 9. Overactive bladder. 10.Cognitive impairment. PLAN: At this point UA and culture were sent off. Accu-Cheks will be followed. The patient was started on vancomycin. We will also add ceftriaxone. Copy to Dr. Duvall. MMODL / TAISHAN: [id number] /
[2018-08-18] MEDS: VANCOMYCIN 1,250 MG in SODIUM CHLORIDE 0.9% 250 ML IVPB SCH ×2 (05:26→17:14)
[2018-08-18] MEDS: ASPIRIN 81 MG PO SCH (07:40)
[2018-08-18] MEDS: ANASTROZOLE 1 MG TAB PO SCH (07:40)
[2018-08-18] MEDS: CYANOCOBALAMIN 500 MCG TAB PO SCH (07:40)
[2018-08-18] MEDS: ATORVASTATIN 40 MG TAB PO SCH (07:40)
[2018-08-18] MEDS: metFORMIN 500 MG TAB PO SCH ×2 (07:40→17:14)
[2018-08-18] MEDS: NON-FORMULARY DRUG (Empagliflozin [Jardiance] 10 MG) PO SCH (07:40)
[2018-08-18] MEDS: CARVEDILOL 12.5 MG TAB PO SCH ×2 (07:40→17:14)
[2018-08-18] MEDS: busPIRone HCl 5 MG TAB PO SCH (07:40)
[2018-08-18] MEDS: levETIRAcetam 500 MG TAB PO SCH ×2 (07:40→21:31)
[2018-08-18] MEDS: [UNRECOGNIZED DRUG - OTHER] PO SCH ×2 (07:41→21:32)
[2018-08-18] MEDS: SODIUM CHLORIDE 0.9% 1,000 ML IV SCH ×2 (08:37→21:33)
[2018-08-18] MEDS ORDERED: CRANBERRY 8400 MG PO SCH (09:00)
[2018-08-18] MEDS: MULTIVITAMINS, THERA 1 EACH TAB PO SCH (12:22)
[2018-08-18] MEDS: PANTOPRAZOLE 40 MG TABLET PO SCH (17:14)
[2018-08-18] MEDS: risperiDONE 0.5 MG TAB PO SCH (21:32)
[2018-08-18] MEDS: MELATONIN 3 MG TABLET PO SCH (21:32)
[2018-08-18] MEDS: busPIRone HCl 10 MG TAB PO SCH (21:32)
[2018-08-18] MEDS: OXYBUTYNIN 10 MG TAB.ER.24 PO SCH (21:32)
--- NOTE | 2018-08-19 00:51 | PN ---
PROGRESS NOTE DATE OF SERVICE: 08/18/2018. PRESENTING COMPLAINT: Acute confusion. INTERVAL HISTORY: This patient presented with acute on chronic confusion with underlying cognitive impairment with UTI. Getting antibiotics. Cultures are pending. Tolerating a diet. Remains pleasantly confused. REVIEW OF SYSTEMS: Attempted for constitutional, cardiovascular, GI, pulmonary; relevant findings as above. CURRENT MEDICATIONS: Reviewed that include IV ceftriaxone and vancomycin. PHYSICAL EXAMINATION: VITAL SIGNS: Temperature 97.4, pulse 76, respiratory 18, blood pressure 130/72. Pulse ox 97% on room air. GENERAL APPEARANCE: Lying in bed, comfortable, awake. EYES: Pupils equal. Conjunctivae normal. NECK JVD not raised. Mass not palpable. RESPIRATORY effort normal. LUNGS are clear. CARDIOVASCULAR: 1st and 2nd sounds normal. No edema. ABDOMEN: Soft, nontender. Liver and spleen not palpable. PSYCHIATRY: Patient does answer simple questions. Pleasant, smiling. INVESTIGATIONS: Cultures are pending. ASSESSMENT: 1. Acute urinary tract infection, probably cystitis contributing to acute delirium. 2. Essential hypertension. 3. History of meningioma treated with Gamma Knife. 4. Diabetes mellitus type 2, on oral hypoglycemics. 5. Hyperlipidemia. 6. Gastroesophageal reflux disease. 7. History of intracranial bleed in July 2015. 8. Overactive bladder. 9. Moderate to severe cognitive impairment, cause unclear. PLAN: Continue with empirical antibiotics. Await cultures. is not present. Did speak to the manager social work. MMODL / IJN: [id number] /
[2018-08-19] MEDS ORDERED: VANCOMYCIN TROUGH DUE 1 EACH MISC MISCELLANE ONE (05:00)
[2018-08-19] MEDS: VANCOMYCIN 1,250 MG in SODIUM CHLORIDE 0.9% 250 ML IVPB SCH ×2 (06:14→17:08)
[2018-08-19] MEDS: busPIRone HCl 5 MG TAB PO SCH (08:34)
[2018-08-19] MEDS: metFORMIN 500 MG TAB PO SCH ×2 (08:34→16:20)
[2018-08-19] MEDS: ASPIRIN 81 MG PO SCH (08:34)
[2018-08-19] MEDS: MULTIVITAMINS, THERA 1 EACH TAB PO SCH (08:34)
[2018-08-19] MEDS: ATORVASTATIN 40 MG TAB PO SCH (08:34)
[2018-08-19] MEDS: CARVEDILOL 12.5 MG TAB PO SCH ×2 (08:34→16:20)
[2018-08-19] MEDS: CYANOCOBALAMIN 500 MCG TAB PO SCH (08:35)
[2018-08-19] MEDS: [UNRECOGNIZED DRUG - OTHER] PO SCH ×2 (08:35→21:58)
[2018-08-19] MEDS: NON-FORMULARY DRUG (Empagliflozin [Jardiance] 10 MG) PO SCH (08:35)
[2018-08-19] MEDS: levETIRAcetam 500 MG TAB PO SCH ×2 (08:35→21:58)
[2018-08-19] MEDS: ANASTROZOLE 1 MG TAB PO SCH (08:35)
[2018-08-19 09:52] LABS: Anion Gap 9 mmol/L; Blood Urea Nitrogen 17 mg/dL (7-17); Calcium 9.1 mg/dL (8.4-10.2); Carbon Dioxide 20 mmol/L (22-30); Chloride 111 mmol/L (98-107); Glucose 134 mg/dL (74-99); Sodium 140 mmol/L (137-145)
[2018-08-19 09:55] LABS: Basophils % (A) 1 %; Eosinophils # (A) 0.1 k/uL (0-0.7); Eosinophils % (A) 2 %; HGB 11.4 gm/dL (11.4-16.0); Lymphocytes # (A) 0.9 k/uL (1.0-4.8); Lymphocytes % (A) 12 %; MCH 28.5 pg (25.0-35.0); MCHC 32.6 g/dL (31.0-37.0); MCV 87.6 fL (80.0-100.0); Mean Platelet Volume 6.5; Monocytes # (A) 0.5 k/uL (0-1.0); Monocytes % (A) 7 %; Neutrophils # (A) 5.6 k/uL (1.3-7.7); Neutrophils % (A) 77 %; Platelet Count 223 k/uL (150-450); RBC 3.99 m/uL (3.80-5.40); RDW 13.4 % (11.5-15.5); WBC 7.2 k/uL (3.8-10.6)
[2018-08-19] MEDS: SODIUM CHLORIDE 0.9% 1,000 ML IV SCH (12:15)
--- NOTE | 2018-08-19 14:20 | P.CONS ---
History of Present Illness - Reason for Consult Consult date: 08/19/18 MRSA UTI - History of Present Illness This is a 73-year-old female with past medical history of frequent urinary tract infections. She was recently treated for MRSA E. coli urinary tract infection when she was in the emergency room on August 13 was placed on Bactroban. Patient again presented to the emergency center as a referral from her primary care office for worsening UTI. She underwent a CAT scan of the brain showed no acute findings and a chest x-ray that showed no acute findings. White count was 10.3, patient afebrile. Creatinine 0.67. Troponin was normal and albumin 3.0. Urinalysis turbid, protein 1+, glucose for postcoital clusters large, Lizett B Leno 182, many WBC clumps and many yeast budding. Blood culture showing no growth after 24 hours and urine culture was finalized with no growth after 18 hours. Urine culture from August 13 is positive for MRSA and E. coli. Patient is a very poor historian and answers "just a little bit" to most questions. manager dish has met with the patient's and plan is for home with home care. Review of Systems ROS unobtainable: due to mental status Past Medical History Past Medical History: Cancer, CVA/TIA, Diabetes Mellitus, GERD/Reflux, Hyperlipidemia, Hypertension, Seizure Disorder Additional Past Medical History / Comment(s): Intracranial bleed July 2015, overactive bladder, multi UTI- ecoli, Breast cancer,meningoma lt side of brain - had gamma knife procedure march 11 2017, RT bx,lumpectomy, lymph node removal." had seizure like symptoms on several ocassions but never got a clear answer if it was". History of Any Multi-Drug Resistant Organisms: CRE, MRSA Year Discovered:: 08/13/18 MDRO Source:: urine. e coli,mrsa Past Surgical History: Hysterectomy Additional Past Surgical History / Comment(s): Total hysterectomy, right hip arthroplasty, laser surgery of the right eye of her bleeding, bladder suspension , right elbow metal plate , gamma knife procedure for meningoma lt side of brain 03-11-17 Past Anesthesia/Blood Transfusion Reactions: No Reported Reaction Past Psychological History: Anxiety, Bipolar, Depression Smoking Status: Former smoker Past Alcohol Use History: None Reported Past Drug Use History: None Reported - Past Family History Father Family Medical History: No Reported History Additional Family Medical History / Comment(s): Father is alive in his 80s and is a smoker. Patient does not know his medical history. Mother Family Medical History: No Reported History Additional Family Medical History / Comment(s): Mother at age 79 from Alzheimer's dementia. Sister(s) Family Medical History: Congestive Heart Failure (CHF) Additional Family Medical History / Comment(s): She has one sister that is from heart failure. Patient does not have any brothers. Patient has 2 daughters that are 45 and 42 years of age with no major medical problems. Medications and Allergies Home Medications Medication Instructions Recorded Confirmed Type Anastrozole [Arimidex] 1 mg PO DAILY 12/22/16 08/17/18 History Tolterodine Tartrate [Detrol LA] 4 mg PO HS 07/21/17 08/17/18 History Aspirin 81 mg PO DAILY chew 07/23/17 08/17/18 Rx Melatonin 3 mg PO HS 10/13/17 08/17/18 History risperiDONE [RisperDAL] 0.5 mg PO HS 11/10/17 08/17/18 History Atorvastatin [Lipitor] 40 mg PO DAILY 03/03/18 08/17/18 History Carvedilol [Coreg] 12.5 mg PO BID 03/03/18 08/17/18 History Empagliflozin [Jardiance] 10 mg PO DAILY 03/03/18 08/17/18 History Cholecalciferol [Vitamin D3] 1,000 unit PO DAILY 06/05/18 08/17/18 History Cyanocobalamin (Vitamin B-12) 1,000 mcg PO DAILY 06/05/18 08/17/18 History [Vitamin B-12] Multivitamins, Thera [Multivitamin 1 tab PO DAILY 06/05/18 08/17/18 History (formulary)] Ubidecarenone [Co Q-10] 100 mg PO DAILY 06/05/18 08/17/18 History busPIRone HCl [Buspar] 10 mg PO HS 06/05/18 08/17/18 History metFORMIN HCL [Glucophage] 500 mg PO BID 06/06/18 08/17/18 History Acetaminophen Tab [Tylenol Tab] 650 mg PO Q6H PRN 07/31/18 08/17/18 History Omeprazole 20 mg PO AC-SUPPER 07/31/18 08/17/18 History levETIRAcetam [Keppra] 1,000 mg PO Q12HR 07/31/18 08/17/18 History Cranberry 8400mg 8,400 mg PO BID 08/13/18 08/17/18 History Nitrofurantoin Monohyd/M-Cryst 100 mg PO Q12HR #14 cap 08/13/18 08/17/18 Rx [Macrobid] Urivarx 840 mg PO BID 08/13/18 08/17/18 History busPIRone HCl [Buspar] 5 mg PO DAILY 08/13/18 08/17/18 History Vancomycin 1,250 mg IVPB Q12H #28 bag 08/19/18 Rx cefTRIAXone [Rocephin] 2,000 mg IVPB Q24HR #14 vial 08/19/18 Rx Allergies Allergy/AdvReac Type Severity Reaction Status Date / Time Sulfa (Sulfonamide Allergy Unknown Unknown Verified 08/17/18 17:11 Antibiotics) egg AdvReac Diarrhea Verified 08/17/18 17:11 solifenacin [From Vesicare] AdvReac Confusion/s Verified 08/17/18 17:11 haking Physical Exam Vitals: Vital Signs Temp Pulse Resp BP BP Pulse Ox 08/19/18 07:13 98.1 F 70 18 159/70 96 08/18/18 23:00 96.9 F L 79 16 129/71 95 08/18/18 20:12 16 08/18/18 15:00 97.4 F L 76 18 133/72 97 Intake and Output 08/18/18 08/19/18 08/19/18 22:59 06:59 14:59 Intake Total 60 900 Balance 60 900 Intake: Intake, IV Titration 900 Amount Sodium Chloride 0.9% 1, 600 000 ml @ 75 mls/hr IV . [id number] [facility] Rx#:[id number] Vancomycin 1,250 mg In 250 Sodium Chloride 0.9% 250 ml @ 125 mls/hr IVPB Q12H [facility] Rx#:[id number] cefTRIAXone 1,000 mg In 50 Sodium Chloride 0.9% 50 ml @ 100 mls/hr IVPB Q24H [facility] Rx#:[id number] Oral 60 Other: Voiding Method Incontinent # Voids 1 1 # Bowel Movements 1 1 Gen: This is a 73-year-old female. She is sitting up in bed and appears to be comfortable and in no acute distress. HEENT: Head is atraumatic, normocephalic. Pupils equal, round. Sclerae is anicteric. NECK: Supple. No JVD. No lymphadenopathy. No thyromegaly. LUNGS: Clear to auscultation. No wheezes or rhonchi. No intercostal retractions. HEART: Regular rate and rhythm. No murmur. ABDOMEN: Soft. Bowel sounds are present. No masses. Mild left lower quadrant tenderness. EXTREMITIES: No pedal edema. No calf tenderness. NEUROLOGICAL: Patient is awake, alert and oriented x1-2. Patient is pleasantly confused. Results Results: Laboratory Results WBC 7.2 k/uL (3.8-10.6) 08/19/18 09:22 RBC 3.99 m/uL (3.80-5.40) 08/19/18 09:22 Hgb 11.4 gm/dL (11.4-16.0) 08/19/18 09:22 Hct 35.0 % (34.0-46.0) 08/19/18 09:22 MCV 87.6 fL (80.0-100.0) 08/19/18 09:22 MCH 28.5 pg (25.0-35.0) 08/19/18 09:22 MCHC 32.6 g/dL (31.0-37.0) 08/19/18 09:22 RDW 13.4 % (11.5-15.5) 08/19/18 09:22 Plt Count 223 k/uL (150-450) 08/19/18 09:22 Neutrophils % 77 % 08/19/18 09:22 Lymphocytes % 12 % 08/19/18 09:22 Monocytes % 7 % 08/19/18 09:22 Eosinophils % 2 % 08/19/18 09:22 Basophils % 1 % 08/19/18 09:22 Neutrophils # 5.6 k/uL (1.3-7.7) 08/19/18 09:22 Lymphocytes # 0.9 k/uL (1.0-4.8) L 08/19/18 09:22 Monocytes # 0.5 k/uL (0-1.0) 08/19/18 09:22 Eosinophils # 0.1 k/uL (0-0.7) 08/19/18 09:22 Basophils # 0.0 k/uL (0-0.2) 08/19/18 09:22 Sodium 140 mmol/L (137-145) 08/19/18 09:22 Potassium 4.0 mmol/L (3.5-5.1) 08/19/18 09:22 Chloride 111 mmol/L (98-107) H 08/19/18 09:22 Carbon Dioxide 20 mmol/L (22-30) L 08/19/18 09:22 Anion Gap 9 mmol/L 08/19/18 09:22 BUN 17 mg/dL (7-17) 08/19/18 09:22 Creatinine 0.52 mg/dL (0.52-1.04) 08/19/18 09:22 Est GFR (CKD-EPI)AfAm >90 (>60 ml/min/1.73 sqM) 08/19/18 09:22 Est GFR (CKD-EPI)NonAf >90 (>60 ml/min/1.73 sqM) 08/19/18 09:22 Glucose 134 mg/dL (74-99) H 08/19/18 09:22 Plasma Lactic Acid Rony 1.6 mmol/L (0.7-2.0) 08/17/18 18:00 Calcium 9.1 mg/dL (8.4-10.2) 08/19/18 09:22 Total Bilirubin 0.7 mg/dL (0.2-1.3) 08/17/18 18:00 AST 19 U/L (14-36) 08/17/18 18:00 ALT 25 U/L (9-52) 08/17/18 18:00 Alkaline Phosphatase 113 U/L (38-126) 08/17/18 18:00 Troponin I <0.012 ng/mL (0.000-0.034) 08/17/18 18:00 Total Protein 6.9 g/dL (6.3-8.2) 08/17/18 18:00 Albumin 3.8 g/dL (3.5-5.0) 08/17/18 18:00 Urine Color Yellow 08/17/18 19:10 Urine Appearance Turbid (Clear) H 08/17/18 19:10 Urine pH 5.5 (5.0-8.0) 08/17/18 19:10 Ur Specific [place] 1.016 (1.001-1.035) 08/17/18 19:10 Urine Protein 1+ (Negative) H 08/17/18 19:10 Urine Glucose (UA) 4+ (Negative) H 08/17/18 19:10 Urine Ketones Negative (Negative) 08/17/18 19:10 Urine Blood Small (Negative) H 08/17/18 19:10 Urine Nitrite Negative (Negative) 08/17/18 19:10 Urine Bilirubin Negative (Negative) 08/17/18 19:10 Urine Urobilinogen <2.0 mg/dL (<2.0) 08/17/18 19:10 Ur Leukocyte Esterase Large (Negative) H 08/17/18 19:10 Urine RBC 11 /hpf (0-5) H 08/17/18 19:10 Urine WBC >182 /hpf (0-5) H 08/17/18 19:10 Urine WBC Clumps Many /hpf (None) H 08/17/18 19:10 Urine Yeast (Budding) Many /hpf (None) H 08/17/18 19:10 Vancomycin Trough 15.0 ug/mL 08/19/18 05:17 CBC & Chem 7: 08/19/18 09:22 08/19/18 09:22 Labs: Abnormal Lab Results - Last 24 Hours (Table) 08/19/18 08/19/18 Range/Units 09:22 09:22 Lymphocytes # 0.9 L (1.0-4.8) k/uL Chloride 111 H (98-107) mmol/L Carbon Dioxide 20 L (22-30) mmol/L Glucose 134 H (74-99) mg/dL Microbiology - Last 24 Hours (Table) 08/17/18 19:10 Urine Culture - Final Urine,Voided 08/17/18 18:00 Blood Culture - Preliminary Blood No Growth after 24 hours Assessment and Plan Plan: This is a 73-year-old female who presented to the hospital with frequent recurring urinary tract infections. On August 13, patient was treated for a MRSA and E. coli urinary tract infection with Macrobid. Repeat urine culture on this admission is showing no growth and has been finalized. Patient is currently on Rocephin and vancomycin and we will plan for 2 week treatment. PICC line will be ordered. Case management updated regarding discharge planning. Continue supportive care. Further recommendations as patient versus. The above dictated assessment and findings were discussed with Dr. Walton. The impression and plan of care have been directed as dictated. Sherie Alcantara nurse practitioner acting as scribe for Dr. Walton.
[2018-08-19] MEDS ORDERED: LIDOCAINE 1% INJ 10MG/ML (20 ML MDV) SQ ONE (14:56)
[2018-08-19 15:59] LABS: Prothrombin Time 10.6 sec (9.0-12.0)
[2018-08-19] MEDS: PANTOPRAZOLE 40 MG TABLET PO SCH (16:20)
--- NOTE | 2018-08-19 16:27 | IR ---
EXAMINATION TYPE: IR cvc insert >=5 years DATE OF EXAM: 08/19/2018 COMPARISON: NONE CLINICAL HISTORY: Infection Needs long-term intravenous access for antibiotics. PROCEDURE: After informed consent, the skin overlying the upper extremity vein was localized with ultrasound and noted to be compressible and patent. An ultrasound image was obtained and submitted on the patient' s chart. The overlying skin was prepped and draped and Lidocaine was used for local anesthesia. A s kin airam was made with a scalpel. Access was gained to the vein under ultrasound guidance with a 21 gauge needle and a 0.018 inch wire was advanced. Access site was dilated with Peel-Away sheath and c atheter tailored to the appropriate length and advanced such that the distal tip is at the cavoatrial junction. Spot image was obtained verifying placement. Catheter was fixed to the skin with suture and a sterile dressing was placed following hemostasis. Catheter was aspirated and flushed with sali ne. Patient was discharged in stable condition without complication. Maximal barrier technique is ut ilized. Ultrasound image is documented on the chart. Ultrasound used with sterile technique. Fluoro time and fluoroscopic images submitted to document procedure: 11 intraoperative C-arm images, 0.2 minutes fluoroscopy time IMPRESSION: STATUS POST ULTRASOUND AND FLUOROSCOPIC GUIDED PICC LINE PLACEMENT, READY FOR USE. THIS PROCEDURE WAS PERFORMED BY THE UNDERSIGNED.
[2018-08-19] MEDS: risperiDONE 0.5 MG TAB PO SCH (21:58)
[2018-08-19] MEDS: OXYBUTYNIN 10 MG TAB.ER.24 PO SCH (21:58)
[2018-08-19] MEDS: MELATONIN 3 MG TABLET PO SCH (21:58)
[2018-08-19] MEDS: busPIRone HCl 10 MG TAB PO SCH (21:58)
[2018-08-19] MEDS: cefTRIAXone 2,000 MG in SODIUM CHLORIDE 0.9% 100 ML IVPB SCH (21:59)
--- NOTE | 2018-08-19 22:12 | PN ---
PROGRESS NOTE DATE OF SERVICE: 08/19/2018 PRESENTING COMPLAINT: Urinary tract infection. INTERVAL HISTORY: Patient presented with acute on chronic confusion from underlying cognitive impairment and UTI. The patient was in the ER on September 12. Cultures positive for MRSA and E coli. Antibiotics per Dr. Walton. Accordingly, needs to be on IV antibiotics. PICC line has been ordered early this morning. Otherwise, patient tolerating a diet. REVIEW OF SYSTEMS: Done for constitutional, cardiovascular, GI, pulmonary and relevant findings as above. CURRENT MEDICATIONS: Reviewed that include IV ceftriaxone and IV vancomycin. EXAMINATION: VITAL SIGNS: Afebrile, pulse 77, respiratory rate 18, blood pressure 140/67, pulse ox 95% on room air. GENERAL APPEARANCE: Lying in bed comfortable, awake. EYES: Pupils equal. Conjunctivae normal. NECK: JVD not raised. Mass not palpable. RESPIRATORY: Effort normal. LUNGS are clear. CARDIOVASCULAR: 1st and 2nd sounds normal. No edema. ABDOMEN: Soft, nontender. Liver and spleen not palpable. PSYCHIATRY: Patient does answer occasional questions. INVESTIGATIONS: White count 7.2, potassium 4.0. The patient's culture from 08/13/2018 show MRSA and E coli. ASSESSMENT: 1. Acute urinary tract infection from cystitis, positive for MRSA and acute E coli and possible acute delirium. 2. Essential hypertension. 3. History of meningioma treated with gamma knife. 4. Diabetes mellitus type 2 on oral hypoglycemic. 5. Hyperlipidemia. 6. Gastroesophageal reflux disease. 7. History of intracranial bleed July 2015. 8. Overactive bladder. 9. Severe cognitive impairment could be from underlying Alzheimer's dementia. PLAN: IV antibiotics per Dr. Walton. Planning for a PICC line. manager recruiting is involved in discharge planning. MMODL / IJN: [id number] /
--- NOTE | 2018-08-19 23:00 | P.CON ---
Consult Note - . Consult date: 08/19/18 Assessment/Plan:: This is a 73-year-old female with past medical history of frequent urinary tract infections. She was recently treated for MRSA E. coli urinary tract infection when she was in the emergency room on August 13 was placed on Bactroban. Patient again presented to the emergency center as a referral from her primary care office for worsening UTI. She underwent a CAT scan of the brain showed no acute findings and a chest x-ray that showed no acute findings. White count was 10.3, patient afebrile. Creatinine 0.67. Troponin was normal and albumin 3.0. Urinalysis turbid, protein 1+, glucose 4+, leukocyte esterase positive, WBC 182, many WBC clumps and many yeast budding. Blood culture showing no growth after 24 hours and urine culture was finalized with no growth after 18 hours. Urine culture from August 13 is positive for MRSA and E. coli. Patient is a very poor historian and answers "just a little bit" to most questions. database marketing manager has met with the patient's and plan is for home with home care. Please see the consult note as dictated by nurse practitioner Mrs. Sherie Alcantara. As noted elderly woman who is a very poor historian. He is comfortable at this point in time. But as noted review of data reveals evidence of recent culture with MRSA and E. coli. While further workup is in process will utilize vancomycin with Rocephin with concerns to failed outpatient antibiotic therapy of Macrobid given the ongoing markedly abnormal urinalysis. Urine culture is negative with the Macrobid usage and blood cultures are pending. At this time we'll add in fluconazole and may need to consider only oral therapy options at the time of her discharge. I agree with evaluation, assessment and plan is dictated by nurse practitioner Mrs. Sherie Alcantara.
[2018-08-20] MEDS: FLUCONAZOLE 100 MG TAB PO SCH ×2 (00:13→20:41)
[2018-08-20] MEDS: SODIUM CHLORIDE 0.9% 1,000 ML IV SCH ×2 (00:13→12:34)
[2018-08-20] MEDS: VANCOMYCIN 1,250 MG in SODIUM CHLORIDE 0.9% 250 ML IVPB SCH ×2 (06:14→18:18)
[2018-08-20] MEDS: CARVEDILOL 12.5 MG TAB PO SCH ×2 (08:10→17:42)
[2018-08-20] MEDS: ANASTROZOLE 1 MG TAB PO SCH (08:11)
[2018-08-20] MEDS: ASPIRIN 81 MG PO SCH (08:11)
[2018-08-20] MEDS: metFORMIN 500 MG TAB PO SCH ×2 (08:11→17:42)
[2018-08-20] MEDS: busPIRone HCl 5 MG TAB PO SCH (08:12)
[2018-08-20] MEDS: levETIRAcetam 500 MG TAB PO SCH ×2 (08:12→20:41)
[2018-08-20] MEDS: ATORVASTATIN 40 MG TAB PO SCH (08:12)
[2018-08-20] MEDS: CYANOCOBALAMIN 500 MCG TAB PO SCH (08:12)
[2018-08-20] MEDS: NON-FORMULARY DRUG (Empagliflozin [Jardiance] 10 MG) PO SCH (10:03)
[2018-08-20] MEDS: [UNRECOGNIZED DRUG - OTHER] PO SCH ×2 (10:03→20:40)
[2018-08-20 10:32] LABS: Anion Gap 9 mmol/L; Blood Urea Nitrogen 15 mg/dL (7-17); Calcium 9.2 mg/dL (8.4-10.2); Carbon Dioxide 22 mmol/L (22-30); Chloride 109 mmol/L (98-107); Glucose 171 mg/dL (74-99); Potassium 3.8 mmol/L (3.5-5.1); Sodium 140 mmol/L (137-145)
[2018-08-20] MEDS: MULTIVITAMINS, THERA 1 EACH TAB PO SCH (12:34)
[2018-08-20] MEDS: PANTOPRAZOLE 40 MG TABLET PO SCH (17:42)
[2018-08-20] MEDS: busPIRone HCl 10 MG TAB PO SCH (20:41)
[2018-08-20] MEDS: MELATONIN 3 MG TABLET PO SCH (20:41)
[2018-08-20] MEDS: risperiDONE 0.5 MG TAB PO SCH (20:41)
[2018-08-20] MEDS: OXYBUTYNIN 10 MG TAB.ER.24 PO SCH (20:41)
[2018-08-20] MEDS: cefTRIAXone 2,000 MG in SODIUM CHLORIDE 0.9% 100 ML IVPB SCH (21:34)
--- NOTE | 2018-08-20 22:17 | PN ---
PROGRESS NOTE DATE OF SERVICE: 08/20/2018. PRESENTING COMPLAINT: Urinary frequency. INTERVAL HISTORY: This patient presented with acute on chronic confusion from underlying cognitive impairment and UTI. The patient did get a PICC line. Cultures were positive MRSA and E coli from recently. IV antibiotics will be given. The patient is pending transfer to the ECF. Otherwise comfortable. Tolerating a diet. REVIEW OF SYSTEMS: Done for constitutional, cardiovascular, GI, pulmonary and relevant findings as above. CURRENT MEDICATIONS: Reviewed that include IV ceftriaxone and vancomycin. EXAMINATION: VITAL SIGNS: Temp 98.3, pulse 96, respiration 20, blood pressure 152/75, pulse ox 96 percent on room air. GENERAL APPEARANCE: Lying in bed, comfortable, smiling. EYES: Pupils equal. Conjunctivae normal. NECK: JVD not raised. Mass not palpable. RESPIRATORY: Effort, lungs are clear. CARDIOVASCULAR: 1st and 2nd sounds normal. No edema. ABDOMEN: Soft, nontender. Liver and spleen not palpable. PSYCHIATRY: Patient able to carry out a conversation, but otherwise confused. INVESTIGATIONS: Potassium 3.8, BUN and creatinine is normal. Urine culture from this admission is growing yeast. ASSESSMENT: 1. Acute urinary tract infection from cystitis, positive for MRSA and E coli and also positive for yeast. 2. Acute delirium. 3. Essential hypertension. 4. History of meningioma treated with gamma knife. 5. Diabetes mellitus type 2 on oral hypoglycemics. 6. Hyperlipidemia. 7. Gastroesophageal reflux disease. 8. History of intracranial bleed for 2014. 9. Overactive bladder. 10.Severe cognitive impairment from underlying Alzheimer's dementia. PLAN: I discussed with Dr. Walton. Patient will go to the ECF with IV antibiotics. He will coordinate the same. The patient complete 3 overnight stay and should be going on Friday. MMODL / IJN: [id number] /
--- NOTE | 2018-08-20 22:44 | P.PN ---
Subjective Progress Note Date: 08/20/18 This is a 73-year-old female with past medical history of frequent urinary tract infections. She was recently treated for MRSA E. coli urinary tract infection when she was in the emergency room on August 13 was placed on Bactroban. Patient again presented to the emergency center as a referral from her primary care office for worsening UTI. She underwent a CAT scan of the brain showed no acute findings and a chest x-ray that showed no acute findings. White count was 10.3, patient afebrile. Creatinine 0.67. Troponin was normal and albumin 3.0. Urinalysis turbid, protein 1+, glucose 4+, leukocyte esterase positive, WBC 182, many WBC clumps and many yeast budding. Blood culture showing no growth after 24 hours and urine culture was finalized with no growth after 18 hours. Urine culture from August 13 is positive for MRSA and E. coli. Patient is a very poor historian and answers "just a little bit" to most questions. 08/20/2018 as noted the patient is pleasantly confused. Fortunately is comfortable and denies discomfort at this time not able to really answer any specific questions. Objective - Vital Signs Vital signs: Vital Signs Temp 98.3 F 08/20/18 15:00 Pulse 76 08/20/18 15:00 Resp 20 08/20/18 15:00 BP 152/75 08/20/18 15:00 Pulse Ox 96 08/20/18 15:00 Intake & Output 08/20/18 08/20/18 08/21/18 06:59 18:59 06:59 Intake Total 700 Balance 700 Intake: IV 600 Sodium Chloride 0.9% 1, 600 000 ml @ 75 mls/hr IV . [id number] [facility] Rx#:[id number] Oral 100 Other: Voiding Method Incontinent Bedpan Incontinent # Voids 1 3 # Bowel Movements 1 - Exam Gen: This is a 73-year-old female. She is sitting up in bed and appears to be comfortable and in no acute distress. HEENT: Head is atraumatic, normocephalic. Pupils equal, round. Sclerae is anicteric. NECK: Supple. No JVD. No lymphadenopathy. No thyromegaly. LUNGS: Clear to auscultation. No wheezes or rhonchi. No intercostal retractions. HEART: Regular rate and rhythm. No murmur. ABDOMEN: Soft. Bowel sounds are present. No masses. Mild left lower quadrant tenderness. EXTREMITIES: No pedal edema. No calf tenderness. NEUROLOGICAL: Patient is awake, alert and oriented x1. Patient is pleasantly confused. - Labs CBC & Chem 7: 08/19/18 09:22 12 09:30 Labs: Abnormal Lab Results - Last 24 Hours (Table) 08/20/18 Range/Units 09:30 Chloride 109 H (98-107) mmol/L Glucose 171 H (74-99) mg/dL Microbiology - Last 24 Hours (Table) 08/17/18 18:00 Blood Culture - Preliminary Blood No Growth after 72 hours 08/17/18 19:10 Urine Culture - Preliminary Urine,Voided Yeast species Laboratory Results WBC 7.2 k/uL (3.8-10.6) 08/19/18 09:22 RBC 3.99 m/uL (3.80-5.40) 08/19/18 09:22 Hgb 11.4 gm/dL (11.4-16.0) 08/19/18 09:22 Hct 35.0 % (34.0-46.0) 08/19/18 09:22 MCV 87.6 fL (80.0-100.0) 08/19/18 09:22 MCH 28.5 pg (25.0-35.0) 08/19/18 09:22 MCHC 32.6 g/dL (31.0-37.0) 08/19/18 09:22 RDW 13.4 % (11.5-15.5) 08/19/18 09:22 Plt Count 223 k/uL (150-450) 08/19/18 09:22 Neutrophils % 77 % 08/19/18 09:22 Lymphocytes % 12 % 08/19/18 09:22 Monocytes % 7 % 08/19/18 09:22 Eosinophils % 2 % 08/19/18 09:22 Basophils % 1 % 08/19/18 09:22 Neutrophils # 5.6 k/uL (1.3-7.7) 08/19/18 09:22 Lymphocytes # 0.9 k/uL (1.0-4.8) L 08/19/18 09:22 Monocytes # 0.5 k/uL (0-1.0) 08/19/18 09:22 Eosinophils # 0.1 k/uL (0-0.7) 08/19/18 09:22 Basophils # 0.0 k/uL (0-0.2) 08/19/18 09:22 PT 10.6 sec (9.0-12.0) 08/19/18 15:27 INR 1.0 (<1.2) 08/19/18 15:27 Sodium 140 mmol/L (137-145) 08/20/18 09:30 Potassium 3.8 mmol/L (3.5-5.1) 08/20/18 09:30 Chloride 109 mmol/L (98-107) H 08/20/18 09:30 Carbon Dioxide 22 mmol/L (22-30) 08/20/18 09:30 Anion Gap 9 mmol/L 08/20/18 09:30 BUN 15 mg/dL (7-17) 08/20/18 09:30 Creatinine 0.58 mg/dL (0.52-1.04) 08/20/18 09:30 Est GFR (CKD-EPI)AfAm >90 (>60 ml/min/1.73 sqM) 08/20/18 09:30 Est GFR (CKD-EPI)NonAf >90 (>60 ml/min/1.73 sqM) 08/20/18 09:30 Glucose 171 mg/dL (74-99) H 08/20/18 09:30 Plasma Lactic Acid Rony 1.6 mmol/L (0.7-2.0) 08/17/18 18:00 Calcium 9.2 mg/dL (8.4-10.2) 08/20/18 09:30 Total Bilirubin 0.7 mg/dL (0.2-1.3) 08/17/18 18:00 AST 19 U/L (14-36) 08/17/18 18:00 ALT 25 U/L (9-52) 08/17/18 18:00 Alkaline Phosphatase 113 U/L (38-126) 08/17/18 18:00 Troponin I <0.012 ng/mL (0.000-0.034) 08/17/18 18:00 Total Protein 6.9 g/dL (6.3-8.2) 08/17/18 18:00 Albumin 3.8 g/dL (3.5-5.0) 08/17/18 18:00 Urine Color Yellow 08/17/18 19:10 Urine Appearance Turbid (Clear) H 08/17/18 19:10 Urine pH 5.5 (5.0-8.0) 08/17/18 19:10 Ur Specific [place] 1.016 (1.001-1.035) 08/17/18 19:10 Urine Protein 1+ (Negative) H 08/17/18 19:10 Urine Glucose (UA) 4+ (Negative) H 08/17/18 19:10 Urine Ketones Negative (Negative) 08/17/18 19:10 Urine Blood Small (Negative) H 08/17/18 19:10 Urine Nitrite Negative (Negative) 08/17/18 19:10 Urine Bilirubin Negative (Negative) 08/17/18 19:10 Urine Urobilinogen <2.0 mg/dL (<2.0) 08/17/18 19:10 Ur Leukocyte Esterase Large (Negative) H 08/17/18 19:10 Urine RBC 11 /hpf (0-5) H 08/17/18 19:10 Urine WBC >182 /hpf (0-5) H 08/17/18 19:10 Urine WBC Clumps Many /hpf (None) H 08/17/18 19:10 Urine Yeast (Budding) Many /hpf (None) H 08/17/18 19:10 Vancomycin Trough 15.0 ug/mL 08/19/18 05:17 Microbiology 08/17/18 18:00 Blood Blood Culture - Preliminary No Growth after 72 hours 08/17/18 19:10 Urine,Voided Urine Culture - Preliminary Yeast species Assessment and Plan (1) Confusion Current Visit: Yes Status: Acute Code(s): R41.0 - DISORIENTATION, UNSPECIFIED SNOMED Code(s): 933907280 (2) Urinary tract infection Narrative/Plan: As noted elderly woman who is a very poor historian. He is comfortable at this point in time. But as noted review of data reveals evidence of recent culture with MRSA and E. coli. While further workup is in process will utilize vancomycin with Rocephin with concerns to failed outpatient antibiotic therapy of Macrobid given the ongoing markedly abnormal urinalysis. Urine culture is negative with the Macrobid usage and blood cultures are pending. As noted there was a urine culture on 08/13/2018 revealing evidence of MRSA and E. coli. Antimicrobial therapy with vancomycin and Rocephin was started and there is evidence of the E. coli that is resistant to Rocephin and consequently is transitioned to levofloxacin. Plan for vancomycin and Levaquin in August discharge at the [facility] to complete her course of treatment. Oral fluconazole also given for what appears to be funguria also occurring at this time. As noted the patient is failed outpatient regimen at urine culture is negative at this time likely due to the Macrodantin present on admission Current Visit: Yes Status: Acute Code(s): N39.0 - URINARY TRACT INFECTION, SITE NOT SPECIFIED SNOMED Code(s): 75563823 (3) Fungus present in urine Current Visit: Yes Status: Acute Code(s): B49 - UNSPECIFIED MYCOSIS SNOMED Code(s): 3558076
[2018-08-20] MEDS: LEVOFLOXACIN 500 MG TAB PO SCH (23:59)
[2018-08-21] MEDS: SODIUM CHLORIDE 0.9% 1,000 ML IV SCH ×2 (03:48→15:02)
[2018-08-21] MEDS: VANCOMYCIN 1,250 MG in SODIUM CHLORIDE 0.9% 250 ML IVPB SCH ×2 (05:34→17:23)
[2018-08-21] MEDS: NON-FORMULARY DRUG (Empagliflozin [Jardiance] 10 MG) PO SCH (07:52)
[2018-08-21] MEDS: [UNRECOGNIZED DRUG - OTHER] PO SCH ×2 (07:52→21:43)
[2018-08-21] MEDS: levETIRAcetam 500 MG TAB PO SCH ×2 (07:55→21:42)
[2018-08-21] MEDS: busPIRone HCl 5 MG TAB PO SCH (07:55)
[2018-08-21] MEDS: metFORMIN 500 MG TAB PO SCH ×2 (07:55→17:23)
[2018-08-21] MEDS: ASPIRIN 81 MG PO SCH (07:55)
[2018-08-21] MEDS: ATORVASTATIN 40 MG TAB PO SCH (07:55)
[2018-08-21] MEDS: CYANOCOBALAMIN 500 MCG TAB PO SCH (07:55)
[2018-08-21] MEDS: CARVEDILOL 12.5 MG TAB PO SCH ×2 (07:55→17:23)
[2018-08-21] MEDS: ANASTROZOLE 1 MG TAB PO SCH (07:56)
[2018-08-21 09:00] LABS: Anion Gap 11 mmol/L; Blood Urea Nitrogen 16 mg/dL (7-17); Calcium 8.6 mg/dL (8.4-10.2); Carbon Dioxide 20 mmol/L (22-30); Chloride 107 mmol/L (98-107); Glucose 136 mg/dL (74-99); Potassium 3.8 mmol/L (3.5-5.1); Sodium 138 mmol/L (137-145)
[2018-08-21] MEDS: MULTIVITAMINS, THERA 1 EACH TAB PO SCH (11:46)
--- NOTE | 2018-08-21 15:06 | DS ---
DISCHARGE SUMMARY DATE OF ADMISSION: 08/17/2018 DATE OF DISCHARGE: 08/22/2018 DISCHARGE DIAGNOSES: 1. Acute delirium from urinary tract infection. 2. Acute urinary tract infection with cystitis from methicillin-resistant Staphylococcus aureus and Escherichia coli, having failed outpatient treatment and funguria. 3. Essential hypertension. 4. History of meningioma treated with Gamma Knife. 5. Diabetes mellitus type 2 on oral hypoglycemic. 6. Hyperlipidemia. 7. Gastroesophageal reflux disease. 8. History of intracranial bleed for 2014. 9. Overactive bladder. 10.Severe cognitive impairment from underlying Alzheimer's dementia. HOSPITAL COURSE: This patient recurrent UTI yet again presented with UTI with cultures from outside, growing MRSA and E. coli, having failed outpatient treatment, was acutely delirious. Seen by Dr. Walton. He is planning to treat the patient with 2 weeks of IV antibiotics because of severity of the problem. Otherwise, patient tolerating a diet, comfortable. Patient has a severe cognitive impairment. PHYSICAL EXAMINATION: Temperature 98.5, pulse 77, respiration 20, blood pressure 152/74, pulse ox 95% on room air. On examination, sitting up in a chair, comfortable, smiling. Patient is able to have a conversation with baseline, otherwise confused. INVESTIGATIONS: Potassium 3.2, BUN and creatinine are normal. White count is normal. Hemoglobin is 11.4. DISCHARGE MEDICATIONS: 1. Arimidex 1 mg p.o. daily. 2. Detrol LA 4 mg q.h.s. 3. Aspirin 81 mg p.o. daily. 4. Melatonin 3 mg q.h.s. 5. Lipitor 40 mg p.o. daily. 6. Coreg 12.5 p.o. b.i.d. 7. Jardiance 10 mg p.o. daily. 8. Vitamin D3 one thousand units p.o. daily. 9. Vitamin B12 one thousand mcg p.o. daily. 10.Multivitamin 1 tablet p.o. daily. 11.CO Q-10 one hundred mg p.o. daily. 12.Buspirone 10 mg p.o. q.h.s. 13.Metformin 500 mg p.o. b.i.d. 14.Tylenol 650 mg q.6 p.r.n. 15.Omeprazole 20 mg a.c. supper. 16.Keppra 1000 mg p.o. q.12. 17.Cranberry 400 mg p.o. b.i.d. 18. 840 mg p.o. b.i.d. 19.BuSpar 5 mg p.o. daily. 20.Vancomycin 1250 mg q.12 twenty-eight doses. 21.Levaquin 500 mg p.o. daily, 14 tablets. 22.Diflucan 100 mg p.o. q.24, seven tablets. 23.Risperdal 0.5 mg p.o. q.h.s. DISPOSITION: [facility]. FOLLOWUP: Dr. Hunt at [facility]. Follow up with Dr. Walton in 2 weeks. Patient will be discharged on 08/22/2018. WALTER / TAISHAN: [id number] /
[2018-08-21] MEDS: PANTOPRAZOLE 40 MG TABLET PO SCH (17:23)
[2018-08-21] MEDS: busPIRone HCl 10 MG TAB PO SCH (21:42)
[2018-08-21] MEDS: MELATONIN 3 MG TABLET PO SCH (21:42)
[2018-08-21] MEDS: OXYBUTYNIN 10 MG TAB.ER.24 PO SCH (21:42)
[2018-08-21] MEDS: risperiDONE 0.5 MG TAB PO SCH (21:43)
[2018-08-21 22:27] VITALS: RESP 17
[2018-08-21] MEDS: LEVOFLOXACIN 500 MG TAB PO SCH (23:39)
[2018-08-21] MEDS: FLUCONAZOLE 100 MG TAB PO SCH (23:39)
[2018-08-22] MEDS: SODIUM CHLORIDE 0.9% 1,000 ML IV SCH (05:26)
[2018-08-22] MEDS: VANCOMYCIN 1,250 MG in SODIUM CHLORIDE 0.9% 250 ML IVPB SCH (06:07)
[2018-08-22 06:23] VITALS: BP 159/77; PULSE 77; TEMP 97.4
[2018-08-22] MEDS: CYANOCOBALAMIN 500 MCG TAB PO SCH (08:08)
[2018-08-22] MEDS: busPIRone HCl 5 MG TAB PO SCH (08:08)
[2018-08-22] MEDS: NON-FORMULARY DRUG (Empagliflozin [Jardiance] 10 MG) PO SCH (08:08)
[2018-08-22] MEDS: [UNRECOGNIZED DRUG - OTHER] PO SCH (08:09)
[2018-08-22] MEDS: levETIRAcetam 500 MG TAB PO SCH (08:09)
[2018-08-22] MEDS: CARVEDILOL 12.5 MG TAB PO SCH (08:09)
[2018-08-22] MEDS: ASPIRIN 81 MG PO SCH (08:09)
[2018-08-22] MEDS: ANASTROZOLE 1 MG TAB PO SCH (08:09)
[2018-08-22] MEDS: MULTIVITAMINS, THERA 1 EACH TAB PO SCH (08:09)
[2018-08-22] MEDS: metFORMIN 500 MG TAB PO SCH (08:09)
[2018-08-22] MEDS: ATORVASTATIN 40 MG TAB PO SCH (08:09)
[2018-08-22 09:08] LABS: Anion Gap 12 mmol/L; Blood Urea Nitrogen 13 mg/dL (7-17); Calcium 9.5 mg/dL (8.4-10.2); Carbon Dioxide 21 mmol/L (22-30); Chloride 108 mmol/L (98-107); Glucose 126 mg/dL (74-99); Potassium 3.9 mmol/L (3.5-5.1); Sodium 141 mmol/L (137-145)
--- NOTE | 2018-08-22 09:09 | P.PN ---
Subjective Progress Note Date: 08/21/18 This is a 73-year-old female with past medical history of frequent urinary tract infections. She was recently treated for MRSA E. coli urinary tract infection when she was in the emergency room on August 13 was placed on Bactroban. Patient again presented to the emergency center as a referral from her primary care office for worsening UTI. She underwent a CAT scan of the brain showed no acute findings and a chest x-ray that showed no acute findings. White count was 10.3, patient afebrile. Creatinine 0.67. Troponin was normal and albumin 3.0. Urinalysis turbid, protein 1+, glucose 4+, leukocyte esterase positive, WBC 182, many WBC clumps and many yeast budding. Blood culture showing no growth after 24 hours and urine culture was finalized with no growth after 18 hours. Urine culture from August 13 is positive for MRSA and E. coli. Patient is a very poor historian and answers "just a little bit" to most questions. 08/20/2018 as noted the patient is pleasantly confused. Fortunately is comfortable and denies discomfort at this time not able to really answer any specific questions. 08/21/2018 patient remains with confusion does not seem to be uncomfortable. She voices no new complaints. As noted urinalysis was markedly abnormal. Culture negative so far but has a history of pre-treatment. Nursing staff relates she's been having no difficulties with her current feeding. Objective - Vital Signs Vital signs: Vital Signs Temp 97.4 F L 08/22/18 06:23 Pulse 77 08/22/18 06:23 Resp 17 08/22/18 06:23 BP 159/77 08/22/18 06:23 Pulse Ox 96 08/22/18 06:23 Intake & Output 08/21/18 08/22/18 08/22/18 18:59 06:59 18:59 Intake Total 200 285 Balance 200 285 Intake: IV 285 Sodium Chloride 0.9% 1, 160 000 ml @ 75 mls/hr IV . [id number] [facility] Rx#:[id number] Vancomycin 1,250 mg In 125 Sodium Chloride 0.9% 250 ml @ 125 mls/hr IVPB Q12H [facility] Rx#:[id number] Oral 200 Other: Voiding Method Bedpan Bedpan Incontinent Incontinent # Voids 1 2 1 # Bowel Movements 1 1 - Exam Gen: This is a 73-year-old female. She is sitting up in bed and appears to be comfortable and in no acute distress. HEENT: Head is atraumatic, normocephalic. Pupils equal, round. Sclerae is anicteric. NECK: Supple. No JVD. No lymphadenopathy. No thyromegaly. LUNGS: Clear to auscultation. No wheezes or rhonchi. No intercostal retractions. HEART: Regular rate and rhythm. No murmur. ABDOMEN: Soft. Bowel sounds are present. No masses. Mild left lower quadrant tenderness. EXTREMITIES: No pedal edema. No calf tenderness. NEUROLOGICAL: Patient is awake, alert and oriented x1. Patient is pleasantly confused. - Labs CBC & Chem 7: 08/19/18 09:22 08/21/18 08:38 Labs: Abnormal Lab Results - Last 24 Hours (Table) 08/21/18 Range/Units 08:38 Carbon Dioxide 20 L (22-30) mmol/L Glucose 136 H (74-99) mg/dL Microbiology - Last 24 Hours (Table) 08/17/18 18:00 Blood Culture - Preliminary Blood No Growth after 96 hours 08/17/18 19:10 Urine Culture - Final Urine,Voided Jennifer glabrata Laboratory Results WBC 7.2 k/uL (3.8-10.6) 08/19/18 09:22 RBC 3.99 m/uL (3.80-5.40) 08/19/18 09:22 Hgb 11.4 gm/dL (11.4-16.0) 08/19/18 09:22 Hct 35.0 % (34.0-46.0) 08/19/18 09:22 MCV 87.6 fL (80.0-100.0) 08/19/18 09:22 MCH 28.5 pg (25.0-35.0) 08/19/18 09:22 MCHC 32.6 g/dL (31.0-37.0) 08/19/18 09:22 RDW 13.4 % (11.5-15.5) 08/19/18 09:22 Plt Count 223 k/uL (150-450) 08/19/18 09:22 Neutrophils % 77 % 08/19/18 09:22 Lymphocytes % 12 % 08/19/18 09:22 Monocytes % 7 % 12/05/18 09:22 Eosinophils % 2 % 08/19/18 09:22 Basophils % 1 % 08/19/18 09:22 Neutrophils # 5.6 k/uL (1.3-7.7) 08/19/18 09:22 Lymphocytes # 0.9 k/uL (1.0-4.8) L 08/19/18 09:22 Monocytes # 0.5 k/uL (0-1.0) 08/19/18 09:22 Eosinophils # 0.1 k/uL (0-0.7) 08/19/18 09:22 Basophils # 0.0 k/uL (0-0.2) 08/19/18 09:22 PT 10.6 sec (9.0-12.0) 08/19/18 15:27 INR 1.0 (<1.2) 08/19/18 15:27 Sodium 138 mmol/L (137-145) 08/21/18 08:38 Potassium 3.8 mmol/L (3.5-5.1) 08/21/18 08:38 Chloride 107 mmol/L (98-107) 08/21/18 08:38 Carbon Dioxide 20 mmol/L (22-30) L 08/21/18 08:38 Anion Gap 11 mmol/L 08/21/18 08:38 BUN 16 mg/dL (7-17) 08/21/18 08:38 Creatinine 0.53 mg/dL (0.52-1.04) 08/21/18 08:38 Est GFR (CKD-EPI)AfAm >90 (>60 ml/min/1.73 sqM) 08/21/18 08:38 Est GFR (CKD-EPI)NonAf >90 (>60 ml/min/1.73 sqM) 08/21/18 08:38 Glucose 136 mg/dL (74-99) H 08/21/18 08:38 Plasma Lactic Acid Rony 1.6 mmol/L (0.7-2.0) 08/17/18 18:00 Calcium 8.6 mg/dL (8.4-10.2) 08/21/18 08:38 Total Bilirubin 0.7 mg/dL (0.2-1.3) 08/17/18 18:00 AST 19 U/L (14-36) 08/17/18 18:00 ALT 25 U/L (9-52) 08/17/18 18:00 Alkaline Phosphatase 113 U/L (38-126) 08/17/18 18:00 Troponin I <0.012 ng/mL (0.000-0.034) 08/17/18 18:00 Total Protein 6.9 g/dL (6.3-8.2) 08/17/18 18:00 Albumin 3.8 g/dL (3.5-5.0) 08/17/18 18:00 Urine Color Yellow 08/17/18 19:10 Urine Appearance Turbid (Clear) H 08/17/18 19:10 Urine pH 5.5 (5.0-8.0) 08/17/18 19:10 Ur Specific [place] 1.016 (1.001-1.035) 08/17/18 19:10 Urine Protein 1+ (Negative) H 08/17/18 19:10 Urine Glucose (UA) 4+ (Negative) H 08/17/18 19:10 Urine Ketones Negative (Negative) 08/17/18 19:10 Urine Blood Small (Negative) H 08/17/18 19:10 Urine Nitrite Negative (Negative) 08/17/18 19:10 Urine Bilirubin Negative (Negative) 08/17/18 19:10 Urine Urobilinogen <2.0 mg/dL (<2.0) 08/17/18 19:10 Ur Leukocyte Esterase Large (Negative) H 08/17/18 19:10 Urine RBC 11 /hpf (0-5) H 08/17/18 19:10 Urine WBC >182 /hpf (0-5) H 08/17/18 19:10 Urine WBC Clumps Many /hpf (None) H 08/17/18 19:10 Urine Yeast (Budding) Many /hpf (None) H 08/17/18 19:10 Vancomycin Trough 15.0 ug/mL 08/19/18 05:17 Microbiology 08/17/18 18:00 Blood Blood Culture - Preliminary No Growth after 96 hours 08/17/18 19:10 Urine,Voided Urine Culture - Final Jennifer glabrata Assessment and Plan (1) Confusion Current Visit: Yes Status: Acute Code(s): R41.0 - DISORIENTATION, UNSPECIFIED SNOMED Code(s): 186884910 (2) Urinary tract infection Narrative/Plan: As noted elderly woman who is a very poor historian. He is comfortable at this point in time. But as noted review of data reveals evidence of recent culture with MRSA and E. coli. While further workup is in process will utilize vancomycin with Rocephin with concerns to failed outpatient antibiotic therapy of Macrobid given the ongoing markedly abnormal urinalysis. Urine culture is negative with the Macrobid usage and blood cultures are pending. As noted there was a urine culture on 08/13/2018 revealing evidence of MRSA and E. coli. Antimicrobial therapy with vancomycin and Rocephin was started and there is evidence of the E. coli that is resistant to Rocephin and consequently is transitioned to levofloxacin. Plan for vancomycin and Levaquin in August discharge at the extended care facility to complete her course of treatment. Oral fluconazole also given for what appears to be funguria also occurring at this time. As noted the patient is failed outpatient regimen at urine culture is negative at this time likely due to the Macrodantin present on admission 08/21/2018 patient seems to be stable and not having further fever no significant leukocytosis and lactic acidosis improved He has responded to treatment for urinary infection with fluconazole for the Jennifer infection, with Levaquin for the E. coli and vancomycin for her history of MRSA. With treatment she seems to be improving and this will be continued. IV access placed and she will be transitioned to extended care to complete her course of therapy. Patient's and caregiver agrees with the process. Current Visit: Yes Status: Acute Code(s): N39.0 - URINARY TRACT INFECTION, SITE NOT SPECIFIED SNOMED Code(s): 14748233 (3) Fungus present in urine Current Visit: Yes Status: Acute Code(s): B49 - UNSPECIFIED MYCOSIS SNOMED Code(s): 4886091
[2018-08-23] MEDS ORDERED: VANCOMYCIN TROUGH DUE 1 EACH MISC MISCELLANE ONE (05:00)
== END 2018-08-22 12:17 | DRG 690 ==
LOC: EC 16:32 → INTOOBSV 18:39 → 4MS4W 18:39 → OBSVTOIN 08-19 21:15
PROVIDERS: ADMIT Hospitalist; ATTEND Hospitalist
PROC: 02HV33Z Insertion of Infusion Device into Superior Vena Cava, Percutaneous Approach (ICD-10-PCS; principal; 2018-08-19 14:40)
DX: N30.00 Acute cystitis without hematuria (principal); F05 Delirium due to known physiological condition; B37.41 Candidal cystitis and urethritis; B96.20 Unspecified Escherichia coli [E. coli] as the cause of diseases classified elsewhere; B95.62 Methicillin resistant Staphylococcus aureus infection as the cause of diseases classified elsewhere; E11.9 Type 2 diabetes mellitus without complications; E78.5 Hyperlipidemia, unspecified; F02.80 Dementia in other diseases classified elsewhere, unspecified severity, without behavioral disturbance, psychotic disturbance, mood disturbance, and anxiety; F31.9 Bipolar disorder, unspecified; G30.9 Alzheimer's disease, unspecified; G40.909 Epilepsy, unspecified, not intractable, without status epilepticus; I10 Essential (primary) hypertension; Z86.79 Personal history of other diseases of the circulatory system; K21.9 Gastro-esophageal reflux disease without esophagitis; N32.81 Overactive bladder; Z16.19 Resistance to other specified beta lactam antibiotics; Z79.811 Long term (current) use of aromatase inhibitors; Z79.82 Long term (current) use of aspirin; Z79.84 Long term (current) use of oral hypoglycemic drugs; Z79.899 Other long term (current) drug therapy; Z82.0 Family history of epilepsy and other diseases of the nervous system; Z82.49 Family history of ischemic heart disease and other diseases of the circulatory system; Z85.3 Personal history of malignant neoplasm of breast; Z86.011 Personal history of benign neoplasm of the brain; Z86.73 Personal history of transient ischemic attack (TIA), and cerebral infarction without residual deficits; Z87.440 Personal history of urinary (tract) infections; Z87.891 Personal history of nicotine dependence; Z90.710 Acquired absence of both cervix and uterus; Z96.641 Presence of right artificial hip joint; Z88.2 Allergy status to sulfonamides; Z88.8 Allergy status to other drugs, medicaments and biological substances; Z91.012 Allergy to eggs; R32 Unspecified urinary incontinence
CPT/HCPCS: 36415; 36569; 70450; 71046; 76937; 77001; 80048; 80053; 80202; 81001; 83605; 84484; 85025; 85610; 87040; 87086; 93005; 96361; 96365; 99285

== ENCOUNTER 2018-09-05 10:18 | Inpatient (IN) | payer MEDICARE, BC ==
[2018-09-05 11:21] LABS: Basophils # (A) 0.1 k/uL (0-0.2); Basophils % (A) 1 %; Eosinophils # (A) 0.4 k/uL (0-0.7); Eosinophils % (A) 5 %; HCT 32.6 % (34.0-46.0); Lymphocytes # (A) 1.1 k/uL (1.0-4.8); Lymphocytes % (A) 12 %; MCH 28.7 pg (25.0-35.0); MCHC 33.8 g/dL (31.0-37.0); MCV 84.8 fL (80.0-100.0); Mean Platelet Volume 6.5; Monocytes # (A) 0.6 k/uL (0-1.0); Monocytes % (A) 7 %; Neutrophils # (A) 7.2 k/uL (1.3-7.7); Neutrophils % (A) 75 %; Platelet Count 336 k/uL (150-450); RBC 3.85 m/uL (3.80-5.40); RDW 13.2 % (11.5-15.5); WBC 9.6 k/uL (3.8-10.6)
[2018-09-05 11:27] LABS: ALT 25 U/L (9-52); AST 18 U/L (14-36); Albumin 3.2 g/dL (3.5-5.0); Alkaline Phosphatase 115 U/L (38-126); Anion Gap 13 mmol/L; Blood Urea Nitrogen 21 mg/dL (7-17); Calcium 9.7 mg/dL (8.4-10.2); Carbon Dioxide 20 mmol/L (22-30); Chloride 109 mmol/L (98-107); Glucose 117 mg/dL (74-99); Magnesium 1.4 mg/dL (1.6-2.3); Potassium 3.9 mmol/L (3.5-5.1); Sodium 142 mmol/L (137-145); Total Bilirubin 0.4 mg/dL (0.2-1.3); Total Protein 6.4 g/dL (6.3-8.2)
[2018-09-05 11:32] LABS: Partial Thromboplastin Time 22.2 sec (22.0-30.0); Prothrombin Time 10.8 sec (9.0-12.0)
--- NOTE | 2018-09-05 11:33 | CT ---
EXAMINATION TYPE: CT brain wo con DATE OF EXAM: 09/05/2018 COMPARISON: 08/17/2018 06/05/2018 HISTORY: 73-year-old female Left sided weakness with history of CVA and Breast CA. TECHNIQUE: Examination was done in axial plane without intravenous contrast. Coronal and sagittal r econstructions performed. CT DLP: 1064.4 mGycm Automated exposure control for dose reduction was used. FINDINGS: Stable round extra-axial lesion near the left CP angle measuring 1.2 cm suggestive of a meningioma. M ild generalized cerebral atrophy. Focal calcification at the left frontoparietal junction with associated white matter hypodensity, sim ilar to 08/17/2013. There is minimal residual asymmetric gyral fullness in this region. The overall wh ite matter hypodensity is unchanged. Rightward nasal septal deviation. Paranasal sinuses and mastoid air cells are well pneumatized. Orbit s and globes are intact. No midline shift or extra-axial fluid collection. No evidence for acute intracranial hemorrhage. No e ffacement of basal subarachnoid cisterns. IMPRESSION: 1. Stable exam with focal calcification at the left frontoparietal junction and associated underlying white matter hypodensity likely posttreatment change. 2. No acute intracranial abnormality seen. 3. Stable meningioma near the left CP angle measuring 1.2 cm.
--- NOTE | 2018-09-05 11:42 | XR ---
EXAMINATION TYPE: XR chest 2V DATE OF EXAM: 09/05/2018 COMPARISON: 08/17/2018 HISTORY: 73-year-old female with weakness TECHNIQUE: AP and lateral views FINDINGS: Heart normal size. Similar elongation/ectasia of the thoracic aorta. Old healed right-sided rib fract ure deformities. Strandy atelectasis throughout the lungs. No consolidation or pleural effusion. Brid ging anterior endplate spondylosis suggesting dish. Right PICC tip at the mid to lower SVC level. IMPRESSION: Chronic changes. Old healed right-sided rib fracture deformities. No acute process seen.
[2018-09-05 11:43] LABS: Creatine Kinase 118 U/L (30-135)
[2018-09-05 11:57] LABS: Creatine Kinase MB <0.2 ng/mL (0.0-2.4); Troponin I <0.012 ng/mL (0.000-0.034)
--- NOTE | 2018-09-05 12:11 | ED ---
General Adult HPI - General Chief complaint: Weakness Stated complaint: poss cva Time Seen by Provider: 09/05/18 10:29 Source: patient, family, RN notes reviewed, old records reviewed Mode of arrival: ambulatory Limitations: no limitations - History of Present Illness Initial comments: 73-year-old female presents for evaluation of confusion and weakness. Patient had previous admission with confusion, UTI, and possible TIA. Symptoms have been ongoing since time of discharge as well as her time at prison. She was discharged to the prison on August 24 and was discharged home 2 days prior. Patient's states symptoms have worsened. No reported focal weakness or numbness. No history of vomiting or diarrhea. Patient has no pain complaints. - Related Data Home Medications Medication Instructions Recorded Confirmed Anastrozole [Arimidex] 1 mg PO DAILY 12/22/16 09/05/18 Tolterodine Tartrate [Detrol LA] 4 mg PO HS 07/21/17 09/05/18 Melatonin 3 mg PO HS 10/13/17 09/05/18 Atorvastatin [Lipitor] 40 mg PO DAILY 03/03/18 09/05/18 Carvedilol [Coreg] 12.5 mg PO BID 03/03/18 09/05/18 Empagliflozin [Jardiance] 10 mg PO DAILY 03/03/18 09/05/18 Cholecalciferol [Vitamin D3] 1,000 unit PO DAILY 06/05/18 09/05/18 Cyanocobalamin (Vitamin B-12) 1,000 mcg PO DAILY 06/05/18 09/05/18 [Vitamin B-12] Multivitamins, Thera [Multivitamin 1 tab PO DAILY 06/05/18 09/05/18 (formulary)] Ubidecarenone [Co Q-10] 100 mg PO DAILY 06/05/18 09/05/18 busPIRone HCl [Buspar] 10 mg PO HS 06/05/18 09/05/18 metFORMIN HCL [Glucophage] 500 mg PO BID 06/06/18 09/05/18 Acetaminophen Tab [Tylenol] 650 mg PO Q6H PRN 07/31/18 09/05/18 Omeprazole 20 mg PO AC-SUPPER 07/31/18 09/05/18 levETIRAcetam [Keppra] 1,000 mg PO Q12HR 07/31/18 09/05/18 Cranberry 8400mg 8,400 mg PO BID 08/13/18 09/05/18 Urivarx 840 mg PO BID 08/13/18 09/05/18 busPIRone HCl [Buspar] 5 mg PO DAILY 08/13/18 09/05/18 Previous Rx's Medication Instructions Recorded Aspirin 81 mg PO DAILY chew 07/23/17 Vancomycin 1,250 mg IVPB Q12H #28 bag 08/19/18 risperiDONE [RisperDAL] 0.5 mg PO HS #30 tab 08/21/18 Allergies Allergy/AdvReac Type Severity Reaction Status Date / Time Sulfa (Sulfonamide Allergy Unknown Unknown Verified 09/05/18 10:49 Antibiotics) egg AdvReac Diarrhea Verified 09/05/18 10:49 solifenacin [From Vesicare] AdvReac Confusion/s Verified 09/05/18 10:49 lindsey Review of Systems ROS Statement: Those systems with pertinent positive or pertinent negative responses have been documented in the HPI. ROS Other: All systems not noted in ROS Statement are negative. 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 History of Any Multi-Drug Resistant Organisms: CRE, MRSA Date of last positivie culture/infection: 08/13/18 MDRO Source:: urine. e coli,mrsa Past Surgical History: Hysterectomy Additional Past Surgical History / Comment(s): Total hysterectomy, right hip arthroplasty, laser surgery of the right eye of her bleeding, bladder suspension , right elbow metal plate , gamma knife procedure for meningoma lt side of brain 03-11-17 Past Anesthesia/Blood Transfusion Reactions: No Reported Reaction Past Psychological History: Anxiety, Bipolar, Depression Smoking Status: Former smoker Past Alcohol Use History: None Reported Past Drug Use History: None Reported - Past Family History Father Family Medical History: No Reported History Additional Family Medical History / Comment(s): Father is alive in his 80s and is a smoker. Patient does not know his medical history. Mother Family Medical History: No Reported History Additional Family Medical History / Comment(s): Mother at age 79 from Alzheimer's dementia. Sister(s) Family Medical History: Congestive Heart Failure (CHF) Additional Family Medical History / Comment(s): She has one sister that is from heart failure. Patient does not have any brothers. Patient has 2 daughters that are 45 and 42 years of age with no major medical problems. General Exam Limitations: no limitations General appearance: alert, in no apparent distress Head exam: Present: atraumatic Eye exam: Present: normal appearance, PERRL, EOMI ENT exam: Present: mucous membranes dry Neck exam: Present: normal inspection. Absent: tenderness, meningismus Respiratory exam: Present: normal lung sounds bilaterally. Absent: respiratory distress, wheezes Cardiovascular Exam: Present: regular rate, normal rhythm GI/Abdominal exam: Present: soft. Absent: distended, tenderness, guarding Extremities exam: Present: normal inspection, full ROM Neurological exam: Present: alert, motor sensory deficit (Diagnosis ataxia right upper extremity, patient is confused and has some difficulty following exam however there is no focal weakness noted.). Absent: oriented X3 Psychiatric exam: Present: normal affect, normal mood Skin exam: Present: warm, dry, intact Course Vital Signs 09/05/18 09/05/18 09/05/18 10:26 11:00 11:15 Temperature 97.5 F L Pulse Rate 89 76 75 Respiratory 20 20 18 Rate Blood Pressure 112/77 111/67 110/74 O2 Sat by Pulse 99 98 98 Oximetry 09/05/18 09/05/18 09/05/18 11:30 11:45 12:00 Temperature Pulse Rate 81 79 81 Respiratory 18 18 18 Rate Blood Pressure 110/74 100/54 101/57 O2 Sat by Pulse 98 99 98 Oximetry 09/05/18 09/05/18 09/05/18 12:15 12:30 13:00 Temperature Pulse Rate 82 84 82 Respiratory 18 18 18 Rate Blood Pressure 107/61 104/54 122/74 O2 Sat by Pulse 99 95 98 Oximetry EKG Findings - EKG Comments: EKG Findings:: EKG: Normal sinus rhythm, ventricular rate of 82, PA interval 158 , QRS duration 72, QTC 455, no ST segment changes Medical Decision Making - Medical Decision Making 73-year-old female with confusion, recent history of UTI. Patient has difficulty following commands, she is confused, no focal findings on exam. Head CT obtained, negative for any acute intracranial rebound, no hemorrhage. Patient has bright blood cell count 9.6, hemoglobin 11, lactic acid 2.9 and grossly infected urine with greater than 182 white cells and activity. Culture pending. Patient given IV hydration, started on antibiotics covering previous urine cultures including MRSA. Patient will be admitted for IV antibiotics and continued fluids. Case discussed with the admitting physician. - Lab Data Result diagrams: 09/05/18 10:54 09/05/18 10:54 Lab Results 09/05/18 09/05/18 09/05/18 Range/Units 10:54 10:54 10:54 WBC 9.6 (3.8-10.6) k/uL RBC 3.85 (3.80-5.40) m/uL Hgb 11.0 L (11.4-16.0) gm/dL Hct 32.6 L (34.0-46.0) % MCV 84.8 (80.0-100.0) fL MCH 28.7 (25.0-35.0) pg MCHC 33.8 (31.0-37.0) g/dL RDW 13.2 (11.5-15.5) % Plt Count 336 (150-450) k/uL Neutrophils % 75 % Lymphocytes % 12 % Monocytes % 7 % Eosinophils % 5 % Basophils % 1 % Neutrophils # 7.2 (1.3-7.7) k/uL Lymphocytes # 1.1 (1.0-4.8) k/uL Monocytes # 0.6 (0-1.0) k/uL Eosinophils # 0.4 (0-0.7) k/uL Basophils # 0.1 (0-0.2) k/uL PT (9.0-12.0) sec INR (<1.2) APTT (22.0-30.0) sec Sodium 142 (137-145) mmol/L Potassium 3.9 (3.5-5.1) mmol/L Chloride 109 H (98-107) mmol/L Carbon Dioxide 20 L (22-30) mmol/L Anion Gap 13 mmol/L BUN 21 H (7-17) mg/dL Creatinine 0.56 (0.52-1.04) mg/dL Est GFR (CKD-EPI)AfAm >90 (>60 ml/min/1.73 sqM) Est GFR (CKD-EPI)NonAf >90 (>60 ml/min/1.73 sqM) Glucose 117 H (74-99) mg/dL Plasma Lactic Acid Rony (0.7-2.0) mmol/L Calcium 9.7 (8.4-10.2) mg/dL Magnesium 1.4 L (1.6-2.3) mg/dL Total Bilirubin 0.4 (0.2-1.3) mg/dL AST 18 (14-36) U/L ALT 25 (9-52) U/L Alkaline Phosphatase 115 (38-126) U/L Total Creatine Kinase 118 (30-135) U/L CK-MB (CK-2) <0.2 (0.0-2.4) ng/mL CK-MB (CK-2) Rel Index Troponin I <0.012 (0.000-0.034) ng/mL Total Protein 6.4 (6.3-8.2) g/dL Albumin 3.2 L (3.5-5.0) g/dL Urine Color Urine Appearance (Clear) Urine pH (5.0-8.0) Ur Specific [place] (1.001-1.035) Urine Protein (Negative) Urine Glucose (UA) (Negative) Urine Ketones (Negative) Urine Blood (Negative) Urine Nitrite (Negative) Urine Bilirubin (Negative) Urine Urobilinogen (<2.0) mg/dL Ur Leukocyte Esterase (Negative) Urine RBC (0-5) /hpf Urine WBC (0-5) /hpf Urine WBC Clumps (None) /hpf Urine Bacteria (None) /hpf 09/05/18 09/05/18 09/05/18 Range/Units 10:54 11:44 12:30 WBC (3.8-10.6) k/uL RBC (3.80-5.40) m/uL Hgb (11.4-16.0) gm/dL Hct (34.0-46.0) % MCV (80.0-100.0) fL MCH (25.0-35.0) pg MCHC (31.0-37.0) g/dL RDW (11.5-15.5) % Plt Count (150-450) k/uL Neutrophils % % Lymphocytes % % Monocytes % % Eosinophils % % Basophils % % Neutrophils # (1.3-7.7) k/uL Lymphocytes # (1.0-4.8) k/uL Monocytes # (0-1.0) k/uL Eosinophils # (0-0.7) k/uL Basophils # (0-0.2) k/uL PT 10.8 (9.0-12.0) sec INR 1.0 (<1.2) APTT 22.2 (22.0-30.0) sec Sodium (137-145) mmol/L Potassium (3.5-5.1) mmol/L Chloride (98-107) mmol/L Carbon Dioxide (22-30) mmol/L Anion Gap mmol/L BUN (7-17) mg/dL Creatinine (0.52-1.04) mg/dL Est GFR (CKD-EPI)AfAm (>60 ml/min/1.73 sqM) Est GFR (CKD-EPI)NonAf (>60 ml/min/1.73 sqM) Glucose (74-99) mg/dL Plasma Lactic Acid Rony 2.9 H* (0.7-2.0) mmol/L Calcium (8.4-10.2) mg/dL Magnesium (1.6-2.3) mg/dL Total Bilirubin (0.2-1.3) mg/dL AST (14-36) U/L ALT (9-52) U/L Alkaline Phosphatase (38-126) U/L Total Creatine Kinase (30-135) U/L CK-MB (CK-2) (0.0-2.4) ng/mL CK-MB (CK-2) Rel Index Troponin I (0.000-0.034) ng/mL Total Protein (6.3-8.2) g/dL Albumin (3.5-5.0) g/dL Urine Color Yellow Urine Appearance Turbid H (Clear) Urine pH 5.5 (5.0-8.0) Ur Specific [place] 1.012 (1.001-1.035) Urine Protein 2+ H (Negative) Urine Glucose (UA) 4+ H (Negative) Urine Ketones Negative (Negative) Urine Blood Moderate H (Negative) Urine Nitrite Negative (Negative) Urine Bilirubin Negative (Negative) Urine Urobilinogen <2.0 (<2.0) mg/dL Ur Leukocyte Esterase Large H (Negative) Urine RBC 4 (0-5) /hpf Urine WBC >182 H (0-5) /hpf Urine WBC Clumps Many H (None) /hpf Urine Bacteria Occasional H (None) /hpf Disposition Clinical Impression: Confusion, Encephalopathy, UTI (urinary tract infection) Disposition: ADMITTED IP TO THIS [facility] Condition: Stable Is patient prescribed a controlled substance at d/c from ED?: No Referrals: Mani Hunt DO [Primary Care Provider] - 1-2 days Decision to Admit Reason: Admit from EC Decision Date: 09/05/18 Decision Time: 14:33
[2018-09-05 13:05] LABS: Appearance,Urine Turbid (Clear); Bacteria,Urine Occasional /hpf; Bilirubin,Urine Negative (Negative); Blood,Urine Moderate (Negative); Color,Urine Yellow; Glucose,Urine (UA) 4+ (Negative); Ketones,Urine Negative (Negative); Leukocyte Esterase,Urine Large (Negative); Nitrite,Urine Negative (Negative); PH, Urine 5.5 (5.0-8.0); Protein,Urine 2+ (Negative); RBC,Urine 4 /hpf (0-5); Specific Gravity,Urine 1.012 (1.001-1.035); Urobilinogen,Urine <2.0 mg/dL (<2.0); WBC,Urine >182 /hpf (0-5)
[2018-09-05] MEDS ORDERED: VANCOMYCIN IV PER PHARMACY 1 EACH MISC MISCELLANE PRN (13:22)
[2018-09-05] MEDS ORDERED: LEVOFLOXACIN 500MG-D5W PMX 500 MG in DEXTROSE/WATER 1 100ML.BAG IVPB STA (13:22)
[2018-09-05] MEDS ORDERED: MAGNESIUM SULFATE-D5W PMX 1 GM in DEXTROSE/WATER 1 100ML.BAG IVPB ONE (13:23)
[2018-09-05] MEDS ORDERED: SODIUM CHLORIDE 0.9% 500 ML 500 ML IV ONE (13:24)
[2018-09-05] MEDS: SODIUM CHLORIDE 0.9% 1,000 ML IV SCH (13:39)
[2018-09-05] MEDS ORDERED: VANCOMYCIN 1,250 MG in SODIUM CHLORIDE 0.9% 250 ML IVPB STA (13:49)
[2018-09-05] MEDS ORDERED: NALOXONE 0.4 MG/ML 1 ML VIAL IV PRN (14:28)
[2018-09-05] MEDS ORDERED: ACETAMINOPHEN TAB 325 MG TAB PO PRN ×2 (14:28→16:23)
[2018-09-05] MEDS ORDERED: VANCOMYCIN 1,000 MG VIAL IVPB SCH (16:30)
[2018-09-05 17:10] LABS: Glucose,Whole Blood 101 mg/dL (75-99)
[2018-09-05] MEDS: INSULIN ASPART 100 UNIT/ML 1 ML 10 ML VIAL SQ SCH ×2 (17:19→21:33)
[2018-09-05] MEDS: metFORMIN 500 MG TAB PO SCH (17:24)
[2018-09-05] MEDS: CARVEDILOL 12.5 MG TAB PO SCH (17:24)
[2018-09-05] MEDS: PANTOPRAZOLE 40 MG TABLET PO SCH (17:29)
[2018-09-05 20:14] LABS: Glucose,Whole Blood 106 mg/dL (75-99)
[2018-09-05] MEDS: busPIRone HCl 10 MG TAB PO SCH (21:42)
[2018-09-05] MEDS: MELATONIN 3 MG TABLET PO SCH (21:42)
[2018-09-05] MEDS: VANCOMYCIN 1,250 MG in SODIUM CHLORIDE 0.9% 250 ML IVPB SCH (21:43)
[2018-09-05] MEDS: levETIRAcetam 500 MG TAB PO SCH (21:45)
[2018-09-05] MEDS: OXYBUTYNIN 10 MG TAB.ER.24 PO SCH (21:45)
[2018-09-05] MEDS: [UNRECOGNIZED DRUG - OTHER] PO SCH (22:19)
[2018-09-05] MEDS: CRANBERRY 8400MG PO SCH (22:19)
[2018-09-05] MEDS: risperiDONE 1 MG TAB PO SCH (22:52)
[2018-09-05 23:41] LABS: Hemoglobin A1C 6.5 % (4.0-6.0)
[2018-09-06] MEDS: SODIUM CHLORIDE 0.9% 1,000 ML IV SCH ×2 (02:08→10:31)
[2018-09-06 07:20] LABS: Glucose,Whole Blood 99 mg/dL (75-99)
[2018-09-06] MEDS ORDERED: ATORVASTATIN 10 MG TAB PO SCH (09:00)
[2018-09-06] MEDS: metFORMIN 500 MG TAB PO SCH ×2 (10:06→17:30)
[2018-09-06] MEDS: MULTIVITAMINS, THERA 1 EACH TAB PO SCH (10:06)
[2018-09-06] MEDS: CHOLECALCIFEROL 1,000 UNIT TAB PO SCH (10:06)
[2018-09-06] MEDS: busPIRone HCl 5 MG TAB PO SCH (10:06)
[2018-09-06] MEDS: CARVEDILOL 12.5 MG TAB PO SCH ×2 (10:06→17:30)
[2018-09-06] MEDS: CRANBERRY 8400MG PO SCH ×2 (10:07→22:14)
[2018-09-06] MEDS: ANASTROZOLE 1 MG TAB PO SCH (10:07)
[2018-09-06] MEDS: ASPIRIN 81 MG PO SCH (10:07)
[2018-09-06] MEDS: INSULIN ASPART 100 UNIT/ML 1 ML 10 ML VIAL SQ SCH ×4 (10:07→22:14)
[2018-09-06] MEDS: CYANOCOBALAMIN 500 MCG TAB PO SCH (10:07)
[2018-09-06] MEDS: CO Q-10 100MG PO SCH (10:08)
[2018-09-06] MEDS: [UNRECOGNIZED DRUG - OTHER] PO SCH ×2 (10:08→22:14)
[2018-09-06] MEDS: JARDIANCE 10MG PO SCH (10:08)
[2018-09-06] MEDS: levETIRAcetam 500 MG TAB PO SCH ×2 (10:08→21:09)
[2018-09-06] MEDS: VANCOMYCIN 1,250 MG in SODIUM CHLORIDE 0.9% 250 ML IVPB SCH ×2 (10:29→21:09)
[2018-09-06 12:19] LABS: Glucose,Whole Blood 121 mg/dL (75-99)
--- NOTE | 2018-09-06 14:25 | HP ---
HISTORY AND PHYSICAL DATE OF ADMISSION: September 05, 2018. DATE OF SERVICE: September 06, 2018. PRESENTING COMPLAINT: Confusion. HISTORY OF PRESENTING COMPLAINT: This is a pleasant 73-year-old patient who follows with Dr. Duvall. Chronic stable medical conditions include seizures, hypertension, diabetes, hyperlipidemia, GERD, intracranial bleed in 2014, overactive bladder. The patient has had multiple urinary tract infections. The patient was discharged from the hospital recently on 08/21/2018. The patient's urine culture at that time had grown MRSA and E coli and also funguria. Patient was discharged on vancomycin for 14 days and Levaquin for 14 days and Diflucan for 7 days. The patient was discharged to [facility]. The patient presented to the ER brought in apparently by the . She was discharged from the [facility] to home 2 days ago and patient's symptoms have worsened. The patient because of her dementia, not really able to answer questions except for basic questions. The patient's urine again came back infected appearing. REVIEW OF SYSTEMS: CONSTITUTIONAL: Tired. HEENT: None. RESPIRATORY: None. CARDIOVASCULAR: None. GASTROINTESTINAL: None. GENITOURINARY: None. MUSCULOSKELETAL: None. DERMATOLOGICAL: None. PSYCHIATRY: Forgetful. NEUROLOGICAL: None. PAST MEDICAL HISTORY: Diabetes, GERD, hyperlipidemia, hypertension, intracranial bleed in 2014, overactive bladder, multiple UTIs, breast cancer, meningioma of the left side, right breast lumpectomy, lymph node removed, incontinence urine. PAST SURGICAL HISTORY: Total hysterectomy, right hip arthroplasty, laser surgery right eye for bleeding, bladder suspension, right elbow metal plate, gamma knife procedure in February for meningioma left-sided brain in 03/11/17. PSYCH HISTORY: Of bipolar. SOCIAL HISTORY: The patient does not smoke. . Does use a cane for ambulation since intracranial bleed. FAMILY HISTORY: Family history, patient cannot tell. HOME MEDICATIONS: 1. Risperdal 1 mg q.h.s. 2. Metformin 1000 mg p.o. b.i.d. 3. Keppra 1000 mg p.o. q.12h. 4. Buspar 5 mg p.o. daily, 10 mg p.o. q.h.s. 5. 840 mg p.o. b.i.d. 6. COQ 10 100 mg p.o. daily. 7. Detrol LA 4 mg q.h.s. 8. Omeprazole 20 mg before supper. 9. Multivitamin 1 tablet p.o. daily. 10.Melatonin 3 mg q.h.s. 11.Jardiance 10 mg p.o. daily. 12.Vitamin B12 1000 mcg p.o. daily. 13.Cranberry 84 mg p.o. b.i.d. 14.Vitamin D3 1000 units p.o. daily. 15.Coreg 12.5 p.o. b.i.d. 16.Lipitor 10 mg q.h.s. 17.Aspirin 81 mg p.o. daily. 18.Arimidex 1 mg p.o. daily. 19.Tylenol 650 mg q.6h p.r.n. ALLERGIES: TO SULFA, EGG, VESICARE. PHYSICAL EXAMINATION: VITAL SIGNS: On examination temperature 97.5, pulse 89, respirations 20, blood pressure 112/77, pulse ox 99% on room air. GENERAL APPEARANCE: Lying in bed, awake, comfortable. EYES: Pupils equal. Conjunctivae normal. HEENT: External appearance of nose and ears normal. Oral cavity normal. NECK: JVD not raised. Mass not palpable. RESPIRATORY: Effort normal. LUNGS: Clear. CARDIOVASCULAR: 1st and 2nd sounds normal. No edema. ABDOMEN: Soft, nontender. Liver and spleen not palpable. LYMPHATICS: No lymph nodes palpable in the neck or axilla. PSYCHIATRY: Patient is able to tell she is in the hospital. She thinks she is here because she had a mental breakdown, cannot state other things, cannot tell me much about her . NEUROLOGICAL: Pupils equal. Cranial nerves grossly intact. Power and sensation grossly intact. INVESTIGATIONS: White count 9.6, hemoglobin 11, potassium 3.9, BUN 21, creatinine 0.56. UA positive for leukocyte esterase. WBC. ASSESSMENT: 1. Acute urinary tract infection probably from cystitis, possibly causing acute delirium. The patient has had multiple episodes recently completed a course of antibiotic 3 days ago. 2. Questionable seizure disorder. 3. Essential hypertension. 4. History of meningioma treated with Gamma Knife. 5. Diabetes mellitus type 2 on oral hypoglycemic. 6. Hyperlipidemia. 7. Gastroesophageal reflux disease. 8. History of intracranial bleed in July 2015. 9. Overactive bladder. 10.Moderate to severe cognitive impairment, multifactorial. PLAN: Home medications are resumed. The patient has been put back on vancomycin. Urine culture was done. The patient is known to Dr. Walton, I will have him review the same. Copy to Dr. Duvall. WALTER / HEBER: [id number] /
[2018-09-06] MEDS: PANTOPRAZOLE 40 MG TABLET PO SCH (17:30)
[2018-09-06 17:35] LABS: Glucose,Whole Blood 112 mg/dL (75-99)
[2018-09-06 20:24] LABS: Glucose,Whole Blood 139 mg/dL (75-99)
[2018-09-06] MEDS ORDERED: risperiDONE 1 MG TAB PO SCH (21:00)
[2018-09-06] MEDS: ATORVASTATIN 10 MG TAB PO SCH (21:07)
[2018-09-06] MEDS: MELATONIN 3 MG TABLET PO SCH (21:07)
[2018-09-06] MEDS: busPIRone HCl 10 MG TAB PO SCH (21:07)
[2018-09-06] MEDS: risperiDONE 1 MG TAB PO SCH (21:08)
[2018-09-06] MEDS: OXYBUTYNIN 10 MG TAB.ER.24 PO SCH (21:08)
--- NOTE | 2018-09-07 06:03 | CONS ---
CONSULTATION DATE OF SERVICE: 09/06/2018 REASON FOR CONSULTATION: Urinary tract infection. HISTORY OF PRESENT ILLNESS: The patient is a 73-year-old female with past medical history significant for recurrent urinary tract infection. The patient was recently admitted to this facility. The patient initially had a culture at that time did shows MRSA and E coli, repeat was Jennifer glabrata. Patient subsequently was sent to the half-way on a 2 week course of vancomycin, Levaquin and Diflucan. The patient was just discharged from the half-way to home about 2 days ago. However has been brought back to the ER but has been with the patient having more confusion and mental status changes. There is no clear history of any fever or any chills. The patient was evaluated by the ER physician. On arrival, the patient did not have any fever or elevated white count. However, her UA was positive, UA was turbid, moderate blood, large leukocyte esterases, more than 1-2 WBC. The patient was started on vancomycin. Infectious Disease was consulted for further recommendation regarding antibiotic therapy. The patient currently denies having any fever, rigors or chills. The patient denies having any headache or URI symptoms. No chest pain. No shortness of breath or cough. No abdominal pain and no diarrhea. REVIEW OF SYSTEMS: Positive points have been mentioned in HPI. The rest of the system has been negative. PAST MEDICAL HISTORY: Significant for recurrent urinary tract infection, diabetes mellitus, gastroesophageal reflux disease, hyperlipidemia, hypertension, intracranial bleed, overactive bladder, , history of breast cancer, meningioma of the left side. PAST SURGICAL HISTORY: Hysterectomy and right hip arthroplasty, lumpectomy right breast, left removal, meningioma removal, right elbow metal plate. SOCIAL HISTORY: The patient is . Denies smoking, drinking, or drug use. FAMILY HISTORY: No pertinent findings noticed. ALLERGIES: SULFA. MEDICATION: Medications include the patient is currently on Tylenol, Arimidex, aspirin, Buspar, Coreg, vitamin D3, NovoLog, Keppra, melatonin, Glucophage, vancomycin pharmacy to dose. EXAMINATION: Blood pressure is 114/71 with a pulse of 87, temperature 98.2, she is 97% on room air. General description is an elderly female lying in bed in no distress. No tachypnea or accessory muscles of respiration use. HEENT: Shows slight pallor. No scleral icterus. Oral mucosal membranes are dry. No pharyngeal erythema or thrush. Neck: Trachea central. No thyromegaly. Lungs unlabored breathing. Clear to auscultation anteriorly. No wheeze or crackles. Heart S1, S2. Regular rate and rhythm. ABDOMEN: Soft, no tenderness. No guarding. No rigidity. No organomegaly. EXTREMITIES: No edema of feet. Skin examination: No rash or mass palpable. Neurologic: The patient is awake, alert, oriented times three. Mood and affect normal. LABS: Hemoglobin is 11 with white count 9.6, BUN of 21, creatinine 0.56. Lactic acid 2.9. Urine with large leukocyte esterases, more than 1 or 2 WBC's. DIAGNOSTIC IMPRESSION AND PLAN: Patient presented to the hospital with mental status changes likely multifactorial in this patient who did have did significantly positive UA with underlying UTI not entirely excluded. The patient last urine culture has been E. coli and MRSA for which patient apparently has received about 2 weeks of antibiotic therapy should have been more than enough in a patient who did have a CT July 2018 did not show any evidence of hydronephrosis or structure abnormality of kidneys. PLAN: 1. Vancomycin pharmacy to dose target of 15, while watching kidney function closely and oral Cipro to cover for the E. coli. 2. Gentle IV fluids. 3. We will follow up on clinical condition and culture to further adjust medication if needed. Thank you for this consultation. We will follow this patient along with you. MMODL / IJN: [id number] /
[2018-09-07 07:30] LABS: Glucose,Whole Blood 114 mg/dL (75-99)
[2018-09-07] MEDS ORDERED: VANCOMYCIN TROUGH DUE 1 EACH MISC MISCELLANE ONE (08:00)
[2018-09-07] MEDS: INSULIN ASPART 100 UNIT/ML 1 ML 10 ML VIAL SQ SCH ×4 (09:01→20:43)
[2018-09-07] MEDS: ASPIRIN 81 MG PO SCH (09:10)
[2018-09-07] MEDS: SODIUM CHLORIDE 0.9% 1,000 ML IV SCH ×2 (09:10→20:55)
[2018-09-07] MEDS: MULTIVITAMINS, THERA 1 EACH TAB PO SCH (09:10)
[2018-09-07] MEDS: CHOLECALCIFEROL 1,000 UNIT TAB PO SCH (09:11)
[2018-09-07] MEDS: CYANOCOBALAMIN 500 MCG TAB PO SCH (09:11)
[2018-09-07] MEDS: CARVEDILOL 12.5 MG TAB PO SCH ×2 (09:11→18:15)
[2018-09-07] MEDS: metFORMIN 500 MG TAB PO SCH ×2 (09:11→18:15)
[2018-09-07] MEDS: ANASTROZOLE 1 MG TAB PO SCH (09:12)
[2018-09-07] MEDS: busPIRone HCl 5 MG TAB PO SCH (09:12)
[2018-09-07] MEDS: CIPROFLOXACIN HCL 500 MG TAB PO SCH ×2 (09:13→20:43)
[2018-09-07] MEDS: levETIRAcetam 500 MG TAB PO SCH ×2 (09:13→20:42)
[2018-09-07] MEDS: VANCOMYCIN 1,250 MG in SODIUM CHLORIDE 0.9% 250 ML IVPB SCH (09:14)
[2018-09-07] MEDS: CO Q-10 100MG PO SCH (09:14)
[2018-09-07] MEDS: JARDIANCE 10MG PO SCH (09:15)
[2018-09-07] MEDS: [UNRECOGNIZED DRUG - OTHER] PO SCH ×2 (09:15→20:55)
[2018-09-07 09:48] LABS: Anion Gap 10 mmol/L; Blood Urea Nitrogen 11 mg/dL (7-17); Calcium 8.9 mg/dL (8.4-10.2); Carbon Dioxide 20 mmol/L (22-30); Chloride 110 mmol/L (98-107); Glucose 196 mg/dL (74-99); Potassium 3.6 mmol/L (3.5-5.1); Sodium 140 mmol/L (137-145)
[2018-09-07 11:55] LABS: Glucose,Whole Blood 227 mg/dL (75-99)
[2018-09-07] MEDS: CRANBERRY 8400MG PO SCH ×2 (12:00→20:55)
[2018-09-07 17:26] LABS: Glucose,Whole Blood 112 mg/dL (75-99)
[2018-09-07] MEDS: PANTOPRAZOLE 40 MG TABLET PO SCH (18:15)
[2018-09-07 20:16] LABS: Glucose,Whole Blood 175 mg/dL (75-99)
[2018-09-07] MEDS: ATORVASTATIN 10 MG TAB PO SCH (20:42)
[2018-09-07] MEDS: busPIRone HCl 10 MG TAB PO SCH (20:42)
[2018-09-07] MEDS: MELATONIN 3 MG TABLET PO SCH (20:42)
[2018-09-07] MEDS: risperiDONE 1 MG TAB PO SCH (20:43)
[2018-09-07] MEDS: OXYBUTYNIN 10 MG TAB.ER.24 PO SCH (20:43)
[2018-09-07] MEDS: VANCOMYCIN 1,000 MG in SODIUM CHLORIDE 0.9% 250 ML IVPB SCH (20:50)
[2018-09-07] MEDS: SODIUM BICARBONATE TAB 650 MG TAB PO SCH (22:40)
--- NOTE | 2018-09-08 01:20 | PN ---
PROGRESS NOTE DATE OF SERVICE: 09/07/2018. PRESENTING COMPLAINT: Acute confusion. INTERVAL HISTORY: This is a patient who just completed a course of antibiotic for MRSA and E coli, yet again admitted with severe UTI. Seen by ID. The patient has been put back on vancomycin and Cipro. The patient is tolerating a diet. Daughter is at the bedside. Minimal urine symptoms, though patient at baseline is confused. REVIEW OF SYSTEMS: Done for constitutional, cardiovascular, GI, pulmonary; relevant findings as above. CURRENT MEDICATIONS: Reviewed, that include IV vancomycin and Cipro. PHYSICAL EXAMINATION: Temperature 97.7, pulse 95, respirations 16, blood pressure 133/75, pulse ox 96 percent on room air. GENERAL APPEARANCE: Lying in bed comfortable. EYES: Pupil equal. Conjunctivae normal. NECK: JVD not raised. Mass not palpable. Respiratory effort normal. LUNGS: Clear. CARDIOVASCULAR: 1st and 2nd sounds normal. No edema. ABDOMEN: Soft, nontender. Liver and spleen not palpable. PSYCHIATRY: The patient can only answer simple questions. INVESTIGATIONS: Potassium 3.6, BUN 20, creatinine 0.51. Accu-Cheks are noted. ASSESSMENT: 1. Acute urinary tract infection probably from cystitis causing acute delirium. The patient has had multiple episodes of the same. Recent urinary tract infection, treated for MRSA and E coli. 2. Essential hypertension. 3. History of meningioma treated with Gamma Knife. 4. Diabetes mellitus type 2 on oral hypoglycemic. 5. Hyperlipidemia. 6. Gastroesophageal reflux disease. 7. History of intracranial bleed in July of 2015. 8. Overactive bladder. 9. Moderate to severe cognitive impairment, multifactorial. PLAN: Care was discussed at length with the daughter. ID will follow. Other medication and treatment plan to continue. We will add sodium bicarbonate. MMODL / IJN: [id number] /
[2018-09-08 01:24] VITALS: RESP 16
[2018-09-08] MEDS: ASPIRIN 81 MG PO SCH (06:54)
[2018-09-08] MEDS: metFORMIN 500 MG TAB PO SCH ×2 (06:54→17:32)
[2018-09-08] MEDS: MULTIVITAMINS, THERA 1 EACH TAB PO SCH (06:54)
[2018-09-08] MEDS: busPIRone HCl 5 MG TAB PO SCH (06:54)
[2018-09-08] MEDS: levETIRAcetam 500 MG TAB PO SCH (06:55)
[2018-09-08] MEDS: CARVEDILOL 12.5 MG TAB PO SCH ×2 (06:55→17:32)
[2018-09-08] MEDS: CYANOCOBALAMIN 500 MCG TAB PO SCH (06:55)
[2018-09-08] MEDS: CHOLECALCIFEROL 1,000 UNIT TAB PO SCH (06:55)
[2018-09-08] MEDS: ANASTROZOLE 1 MG TAB PO SCH (06:56)
[2018-09-08] MEDS: CIPROFLOXACIN HCL 500 MG TAB PO SCH (06:56)
[2018-09-08] MEDS: CRANBERRY 8400MG PO SCH (06:57)
[2018-09-08] MEDS: JARDIANCE 10MG PO SCH (06:57)
[2018-09-08] MEDS: SODIUM CHLORIDE 0.9% 1,000 ML IV SCH (06:58)
[2018-09-08] MEDS: SODIUM BICARBONATE TAB 650 MG TAB PO SCH ×2 (06:59→17:32)
[2018-09-08] MEDS: CO Q-10 100MG PO SCH (07:00)
[2018-09-08] MEDS: [UNRECOGNIZED DRUG - OTHER] PO SCH (07:00)
[2018-09-08 07:15] LABS: Glucose,Whole Blood 122 mg/dL (75-99)
--- NOTE | 2018-09-08 07:15 | PN ---
PROGRESS NOTE DATE OF SERVICE: 09/07/2018. REASON FOR FOLLOWUP VISIT: Urinary tract infection. INTERVAL HISTORY: The patient is currently afebrile. She is breathing comfortably. Denies having any chest pain. No shortness of breath, cough. No abdominal pain. No diarrhea. PHYSICAL EXAMINATION: Blood pressure 130/73 with a pulse of 94, temperature 97.8. She is 97% on room air. General description is an elderly female, lying in bed in no distress. Respiratory system: Unlabored breathing, clear to auscultation anteriorly. Heart S1, S2. Regular rate and rhythm. Abdomen soft. No tenderness. LABS: BUN of 11, creatinine 0.51. Urine culture so far negative. therapeutic. DIAGNOSTIC IMPRESSION AND PLAN: Patient admitted to the hospital with mental status changes with concern for possible urinary tract infection. Patient did have recent urine culture positive for E coli as well as MRSA. Patient is currently covered with Vanco and Cipro that will continue while waiting for the culture to finalize. Continue supportive care. MMODL / IJN: [id number] /
[2018-09-08] MEDS: INSULIN ASPART 100 UNIT/ML 1 ML 10 ML VIAL SQ SCH ×3 (07:16→17:34)
[2018-09-08 08:49] LABS: Anion Gap 8 mmol/L; Blood Urea Nitrogen 9 mg/dL (7-17); Calcium 8.8 mg/dL (8.4-10.2); Carbon Dioxide 22 mmol/L (22-30); Chloride 111 mmol/L (98-107); Glucose 128 mg/dL (74-99); Potassium 3.4 mmol/L (3.5-5.1); Sodium 141 mmol/L (137-145)
[2018-09-08] MEDS: VANCOMYCIN 1,000 MG in SODIUM CHLORIDE 0.9% 250 ML IVPB SCH (10:10)
[2018-09-08 11:42] LABS: Glucose,Whole Blood 142 mg/dL (75-99)
[2018-09-08 17:11] LABS: Glucose,Whole Blood 128 mg/dL (75-99)
[2018-09-08] MEDS: PANTOPRAZOLE 40 MG TABLET PO SCH (17:32)
[2018-09-08 17:36] VITALS: BP 127/77; PULSE 88; TEMP 98.6
[2018-09-09] MEDS ORDERED: VANCOMYCIN TROUGH DUE 1 EACH MISC MISCELLANE ONE (09:00)
--- NOTE | 2018-09-09 09:27 | DS ---
DISCHARGE SUMMARY DATE OF ADMISSION: 09/05/2018 DATE OF DISCHARGE: 09/08/2018 FINAL DIAGNOSES: 1. Acute delirium probably from underlying cognitive impairment. 2. Essential hypertension. 3. History of meningioma treated with Gamma knife. 4. Diabetes mellitus type 2 on oral hypoglycemic. 5. Hyperlipidemia. 6. Gastroesophageal reflux disease. 7. History of intracranial bleed in July 2015. 8. Overactive bladder. 9. Moderate to severe cognitive impairment, multifactorial. HOSPITAL COURSE: This patient who just finished a course of IV antibiotics with vancomycin and Cipro for MRSA and E coli yet again presented more confusion. The patient has significant baseline cognitive impairment. Initially treated with ciprofloxacin and vancomycin. Dr. Dawson saw the patient. Cultures came back negative even though the UA was positive. I discussed with him today. He felt there is no further need for any antibiotics. The patient otherwise has been doing well, tolerating a diet. The patient has been afebrile with a normal white count. Hence antibiotics have been discontinued. The patient may have been just delirious from cognitive impairment. PHYSICAL EXAMINATION: On examination, afebrile. Lungs are clear. Abdomen is soft, nontender. DISCHARGE MEDICATIONS: 1. Arimidex 1 mg p.o. daily. 2. Detrol LA 5 mg p.o. q.h.s. 3. Aspirin 81 mg a day. 4. Melatonin 3 mg q.h.s. 5. Coreg 12.5 p.o. b.i.d. 6. Jardiance 10 mg p.o. daily. 7. Vitamin D3, 1000 units p.o. daily. 8. Vitamin B12, 1000 mcg p.o. daily. 9. Multivitamin 1 tablet p.o. daily. 10.CO Q-10, 100 mg p.o. daily. 11.BuSpar 10 mg p.o. q.h.s. 12.Glucophage 500 mg p.o. b.i.d. 13.Tylenol 650 mg q.6 p.r.n. 14.Keppra 1000 mg p.o. q.12. 15.Cranberry 8400 mg p.o. b.i.d. 16.UriVarx 840 mg p.o. b.i.d. 17.BuSpar 5 mg p.o. daily. 18.Lipitor 40 mg q.h.s. 19.Risperdal 1 mg q.h.s. 20.Omeprazole 20 mg p.o. b.i.d. Follow up with Dr. Hunt in 2 days. MMODL / TAISHAN: [id number] /
== END 2018-09-08 18:37 | disposition home or self-care (01) | DRG 948 ==
LOC: EC 10:18 → 4SSUR 14:28
PROVIDERS: ADMIT Hospitalist; ATTEND Hospitalist
DX: R41.0 Disorientation, unspecified (principal); Z87.440 Personal history of urinary (tract) infections; E11.9 Type 2 diabetes mellitus without complications; E78.5 Hyperlipidemia, unspecified; F03.90 Unspecified dementia, unspecified severity, without behavioral disturbance, psychotic disturbance, mood disturbance, and anxiety; F31.9 Bipolar disorder, unspecified; G40.909 Epilepsy, unspecified, not intractable, without status epilepticus; I10 Essential (primary) hypertension; K21.9 Gastro-esophageal reflux disease without esophagitis; N32.81 Overactive bladder; Z79.811 Long term (current) use of aromatase inhibitors; Z79.82 Long term (current) use of aspirin; Z79.84 Long term (current) use of oral hypoglycemic drugs; Z82.0 Family history of epilepsy and other diseases of the nervous system; Z82.49 Family history of ischemic heart disease and other diseases of the circulatory system; Z85.3 Personal history of malignant neoplasm of breast; Z86.011 Personal history of benign neoplasm of the brain; Z86.73 Personal history of transient ischemic attack (TIA), and cerebral infarction without residual deficits; Z87.891 Personal history of nicotine dependence; Z90.710 Acquired absence of both cervix and uterus; Z96.641 Presence of right artificial hip joint; Z86.14 Personal history of Methicillin resistant Staphylococcus aureus infection; R32 Unspecified urinary incontinence; Z88.2 Allergy status to sulfonamides; Z88.1 Allergy status to other antibiotic agents; Z91.012 Allergy to eggs
CPT/HCPCS: 36415; 70450; 71046; 80048; 80053; 80202; 81001; 82550; 82553; 83036; 83605; 83735; 84484; 85025; 85610; 85730; 87086; 93005; 94760; 96365; 99285

== ENCOUNTER 2018-10-15 12:21 | Emergency (ER) | payer MEDICARE, BC ==
[2018-10-15] MEDS ORDERED: ONDANSETRON 4 MG ODT STARTER PACK 2 TAB BTL PO STA (13:11)
[2018-10-15 14:01] LABS: Basophils # (A) 0.1 k/uL (0-0.2); Basophils % (A) 1 %; Eosinophils # (A) 0.1 k/uL (0-0.7); Eosinophils % (A) 3 %; HCT 36.5 % (34.0-46.0); HGB 11.6 gm/dL (11.4-16.0); Lymphocytes # (A) 1.6 k/uL (1.0-4.8); Lymphocytes % (A) 28 %; MCH 26.6 pg (25.0-35.0); MCHC 31.7 g/dL (31.0-37.0); MCV 83.9 fL (80.0-100.0); Mean Platelet Volume 6.9; Monocytes # (A) 0.4 k/uL (0-1.0); Monocytes % (A) 8 %; Neutrophils # (A) 3.3 k/uL (1.3-7.7); Neutrophils % (A) 59 %; Platelet Count 200 k/uL (150-450); RBC 4.35 m/uL (3.80-5.40); RDW 14.6 % (11.5-15.5); WBC 5.7 k/uL (3.8-10.6)
[2018-10-15 14:11] LABS: ALT 24 U/L (9-52); AST 21 U/L (14-36); Albumin 3.8 g/dL (3.5-5.0); Alkaline Phosphatase 98 U/L (38-126); Anion Gap 10 mmol/L; Blood Urea Nitrogen 18 mg/dL (7-17); Calcium 9.8 mg/dL (8.4-10.2); Carbon Dioxide 22 mmol/L (22-30); Chloride 106 mmol/L (98-107); Glucose 109 mg/dL (74-99); Potassium 4.4 mmol/L (3.5-5.1); Sodium 138 mmol/L (137-145); Total Bilirubin 0.5 mg/dL (0.2-1.3); Total Protein 6.8 g/dL (6.3-8.2)
--- NOTE | 2018-10-15 14:14 | ED ---
Allergic Reaction HPI <Reji Huerta - Last Filed: 10/15/18 15:18> - General Source: patient, RN notes reviewed, old records reviewed Mode of arrival: ambulatory Limitations: no limitations <Meredith Tomlin - Last Filed: 10/15/18 17:02> - General Chief complaint: Allergic Reaction Stated complaint: EPS eval Time Seen by Provider: 10/15/18 12:34 - History of Present Illness Initial Comments: Patient is a 73-year-old female who presents emergency department for reevaluation. Patient states that she has been feeling nauseated with taking a recent antibiotic for UTI. She was placed on this new antibiotic, cefuroxime 1 week ago. Patient reports that she's been on multiple antibiotics for the past few weeks for UTIs. Patient states that she is nauseated but has had no vomiting. She states that she did not eat breakfast or dinner last night. Patient seems somewhat confused. When I consult patent PCP they state this has been chronic and slightly increasing. (Meredith Tomlin) - Related Data Home Medications Medication Instructions Recorded Confirmed Anastrozole [Arimidex] 1 mg PO DAILY 12/22/16 10/15/18 Tolterodine Tartrate [Detrol LA] 4 mg PO HS 07/21/17 10/15/18 Melatonin 3 mg PO HS 10/13/17 10/15/18 Carvedilol [Coreg] 12.5 mg PO BID 03/03/18 10/15/18 Empagliflozin [Jardiance] 10 mg PO DAILY 03/03/18 10/15/18 Cholecalciferol [Vitamin D3] 1,000 unit PO DAILY 06/05/18 10/15/18 Cyanocobalamin (Vitamin B-12) 1,000 mcg PO DAILY 06/05/18 10/15/18 [Vitamin B-12] Multivitamins, Thera [Multivitamin 1 tab PO DAILY 06/05/18 10/15/18 (formulary)] Ubidecarenone [Co Q-10] 100 mg PO DAILY 06/05/18 10/15/18 busPIRone HCl [Buspar] 10 mg PO HS 06/05/18 10/15/18 metFORMIN HCL [Glucophage] 500 mg PO BID 06/06/18 10/15/18 Acetaminophen Tab [Tylenol] 650 mg PO Q6H PRN 07/31/18 10/15/18 levETIRAcetam [Keppra] 1,000 mg PO Q12HR 07/31/18 10/15/18 Cranberry 8400mg 8,400 mg PO BID 08/13/18 10/15/18 Urivarx 840 mg PO BID 08/13/18 10/15/18 busPIRone HCl [Buspar] 5 mg PO DAILY 08/13/18 10/15/18 Atorvastatin Calcium [Lipitor] 10 mg PO HS 09/05/18 10/15/18 risperiDONE [RisperDAL] 1 mg PO HS 09/05/18 10/15/18 Cefuroxime Axetil [Ceftin] 500 mg PO BID 10/15/18 10/15/18 Omeprazole 20 mg PO AC-SUPPER 10/15/18 10/15/18 Previous Rx's Medication Instructions Recorded Aspirin 81 mg PO DAILY chew 07/23/17 Allergies Allergy/AdvReac Type Severity Reaction Status Date / Time Sulfa (Sulfonamide Allergy Unknown Unknown Verified 10/15/18 14:33 Antibiotics) egg AdvReac Diarrhea Verified 10/15/18 14:33 solifenacin [From Vesicare] AdvReac Confusion/s Verified 10/15/18 14:33 haking Review of Systems ROS Other: All systems not noted in ROS Statement are negative. <Reji Huerta - Last Filed: 10/15/18 15:18> ROS Other: All systems not noted in ROS Statement are negative. <Meredith Tomlin - Last Filed: 10/15/18 17:02> ROS Statement: Those systems with pertinent positive or pertinent negative responses have been documented in the HPI. 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 History of Any Multi-Drug Resistant Organisms: CRE, MRSA Date of last positivie culture/infection: 08/13/18 MDRO Source:: urine. e coli,mrsa Past Surgical History: Hysterectomy Additional Past Surgical History / Comment(s): Total hysterectomy, right hip arthroplasty, laser surgery of the right eye of her bleeding, bladder suspension , right elbow metal plate , gamma knife procedure for meningoma lt side of brain 03-11-17 Past Anesthesia/Blood Transfusion Reactions: No Reported Reaction Past Psychological History: Anxiety, Bipolar, Depression Smoking Status: Former smoker Past Alcohol Use History: None Reported Past Drug Use History: None Reported - Past Family History Father Family Medical History: No Reported History Additional Family Medical History / Comment(s): Father is alive in his 80s and is a smoker. Patient does not know his medical history. Mother Family Medical History: No Reported History Additional Family Medical History / Comment(s): Mother at age 79 from Alzheimer's dementia. Sister(s) Family Medical History: Congestive Heart Failure (CHF) Additional Family Medical History / Comment(s): She has one sister that is from heart failure. Patient does not have any brothers. Patient has 2 daughters that are 45 and 42 years of age with no major medical problems. <Meredith Tomlin - Last Filed: 10/15/18 17:02> General Exam <Reji Huerta - Last Filed: 10/15/18 15:18> Limitations: no limitations General appearance: alert, other (confused conversation) Head exam: Present: atraumatic, normocephalic, normal inspection Eye exam: Present: normal appearance, PERRL, EOMI. Absent: scleral icterus, conjunctival injection, periorbital swelling ENT exam: Present: normal exam, mucous membranes moist Neck exam: Present: normal inspection. Absent: tenderness, meningismus, lymphadenopathy Respiratory exam: Present: normal lung sounds bilaterally. Absent: respiratory distress, wheezes, rales, rhonchi, stridor Cardiovascular Exam: Present: regular rate, normal rhythm, normal heart sounds. Absent: systolic murmur, diastolic murmur, rubs, gallop, clicks GI/Abdominal exam: Present: soft, normal bowel sounds. Absent: distended, tenderness, guarding, rebound, rigid Extremities exam: Present: normal inspection, full ROM, normal capillary refill. Absent: tenderness, pedal edema, joint swelling, calf tenderness Back exam: Present: normal inspection Neurological exam: Present: alert, oriented X3, CN II-XII intact, other (Left upper extremity tremor. ) Psychiatric exam: Present: normal affect, normal mood Skin exam: Present: warm, dry, intact, normal color. Absent: rash <Meredith Tomlin - Last Filed: 10/15/18 17:02> - General Exam Comments Initial Comments: 73-year-old female. Alert and oriented 3. Pleasant. No significant distress. (Meredith Tomlin) Vital Signs 10/15/18 12:24 Temperature 98.3 F Pulse Rate 74 Respiratory 16 Rate Blood Pressure 100/56 O2 Sat by Pulse 97 Oximetry Medical Decision Making - Lab Data Result diagrams: 10/15/18 13:46 10/15/18 13:46 <Reji Huerta - Last Filed: 10/15/18 15:18> - Lab Data Result diagrams: 10/15/18 13:46 10/15/18 13:46 - Radiology Data Radiology results: report reviewed <Meredith Tomlin - Last Filed: 10/15/18 17:02> - Medical Decision Making Patient reexamined and reevaluated by myself, Dr. Huerta. Patient resting comfortably in bed. Patient and family updated on results and plan. I do agree with the findings. I did review the findings. This is all diagnostic interpretations and treatment plan. Case was discussed with Dr. teran, covering for Dr. Esteves, who notes for Dr. Hunt. He will admit pending CT head. (Reji Huerta) 73-year-old female presents emergency department today for evaluation for continuing urinary tract infections. Her initial complaint was just nausea. On examination and Patient did have a confused conversation. I discussed this with the patient's PCP. They state that this has been progressing over the past 2 months. Patient has had a history of a brain tumor. Today her lab work including blood work was unremarkable. Urinalysis does show another infection. Her last culture here droop grew Jennifer albicans and prior to that it was MRSA and E. coli. I did give the Patient 1 dose of Rocephin and IV vancomycin. When I discussed admission with Dr. teran recommended CT patient's brain with this continued progressive confusion. He recommended transferring the Patient to [facility] for admission for neuro consult. Patient CT does show slight increase of meningioma and possible cavernoma. (Meredith Tomlin) - Lab Data Lab Results 01/10/15/18 10/15/18 Range/Units 13:46 13:46 14:30 WBC 5.7 (3.8-10.6) k/uL RBC 4.35 (3.80-5.40) m/uL Hgb 11.6 (11.4-16.0) gm/dL Hct 36.5 (34.0-46.0) % MCV 83.9 (80.0-100.0) fL MCH 26.6 (25.0-35.0) pg MCHC 31.7 (31.0-37.0) g/dL RDW 14.6 (11.5-15.5) % Plt Count 200 (150-450) k/uL Neutrophils % 59 % Lymphocytes % 28 % Monocytes % 8 % Eosinophils % 3 % Basophils % 1 % Neutrophils # 3.3 (1.3-7.7) k/uL Lymphocytes # 1.6 (1.0-4.8) k/uL Monocytes # 0.4 (0-1.0) k/uL Eosinophils # 0.1 (0-0.7) k/uL Basophils # 0.1 (0-0.2) k/uL Sodium 138 (137-145) mmol/L Potassium 4.4 (3.5-5.1) mmol/L Chloride 106 (98-107) mmol/L Carbon Dioxide 22 (22-30) mmol/L Anion Gap 10 mmol/L BUN 18 H (7-17) mg/dL Creatinine 0.62 (0.52-1.04) mg/dL Est GFR (CKD-EPI)AfAm >90 (>60 ml/min/1.73 sqM) Est GFR (CKD-EPI)NonAf >90 (>60 ml/min/1.73 sqM) Glucose 109 H (74-99) mg/dL Calcium 9.8 (8.4-10.2) mg/dL Total Bilirubin 0.5 (0.2-1.3) mg/dL AST 21 (14-36) U/L ALT 24 (9-52) U/L Alkaline Phosphatase 98 (38-126) U/L Total Protein 6.8 (6.3-8.2) g/dL Albumin 3.8 (3.5-5.0) g/dL Urine Color Yellow Urine Appearance Turbid H (Clear) Urine pH 6.0 (5.0-8.0) Ur Specific [place] 1.013 (1.001-1.035) Urine Protein 1+ H (Negative) Urine Glucose (UA) 4+ H (Negative) Urine Ketones Negative (Negative) Urine Blood Small H (Negative) Urine Nitrite Negative (Negative) Urine Bilirubin Negative (Negative) Urine Urobilinogen <2.0 (<2.0) mg/dL Ur Leukocyte Esterase Large H (Negative) Urine WBC >182 H (0-5) /hpf Urine WBC Clumps Many H (None) /hpf Urine Bacteria Rare H (None) /hpf Urine Mucus Rare H (None) /hpf Urine Yeast (Budding) Occasional H (None) /hpf - Radiology Data Similar mild to moderate atrophy and stable parenchymal calcification of the left frontal parietal junction with adjacent white matter hypodensity likely location of prior hemorrhage and posttreatment change. Underlying cavernoma is possible. Correlate with patient's history. No acute intracranial abnormality is seen. Stable 1.4 cm meningioma near the left CP angle. (Meredith Tomlin) Disposition <Reji Huerta - Last Filed: 10/15/18 15:18> Is patient prescribed a controlled substance at d/c from ED?: No Time of Disposition: 17:01 - Out of Hospital Transfer - Req. Specs Out of Hospital Transfer - Requested Specifics: Other Emergency Center ([facility]) <Meredith Tomlin - Last Filed: 10/15/18 17:02> Clinical Impression: Confusion, UTI (urinary tract infection), Weakness Disposition: DC/TRNS INTERMEDIATE CARE FAC Condition: Stable Referrals: Mani Hunt DO [Primary Care Provider] - 1-2 days
[2018-10-15 15:01] LABS: Appearance,Urine Turbid (Clear); Bacteria,Urine Rare /hpf; Bilirubin,Urine Negative (Negative); Blood,Urine Small (Negative); Budding Yeast,Urine Occasional /hpf; Color,Urine Yellow; Glucose,Urine (UA) 4+ (Negative); Ketones,Urine Negative (Negative); Leukocyte Esterase,Urine Large (Negative); Mucus,Urine Rare /hpf; Nitrite,Urine Negative (Negative); Protein,Urine 1+ (Negative); Specific Gravity,Urine 1.013 (1.001-1.035); Urobilinogen,Urine <2.0 mg/dL (<2.0)
[2018-10-15] MEDS ORDERED: SODIUM CHLORIDE 0.9% 1,000 ML IV ONE (15:23)
[2018-10-15] MEDS ORDERED: VANCOMYCIN IV PER PHARMACY 1 EACH MISC MISCELLANE PRN (15:23)
[2018-10-15] MEDS ORDERED: SODIUM CHLORIDE 0.9% 1,000 ML IV SCH (15:30)
[2018-10-15] MEDS ORDERED: VANCOMYCIN 1,250 MG in SODIUM CHLORIDE 0.9% 250 ML IVPB STA (15:38)
--- NOTE | 2018-10-15 16:18 | CT ---
EXAMINATION TYPE: CT brain wo con DATE OF EXAM: 10/15/2018 COMPARISON: 09/05/2018 and 08/08/2017 HISTORY: 73-year-old female confusion, Altered mental status. TECHNIQUE: Examination was done in axial plane without intravenous contrast. Coronal and sagittal r econstructions performed. CT DLP: 1111.4 mGycm Automated exposure control for dose reduction was used. FINDINGS: There is no evidence of acute intracranial hemorrhage, acute ischemic changes, mass effect, or extra -axial fluid collection. There is no effacement of cerebral sulci or basal subarachnoid cisterns. T here is no hydrocephalus. There is no midline shift. Daigle-white matter distinction is preserved. Stable 1.4 cm meningioma near the left CP angle. Mild to moderate generalized supratentorial volume loss with mild patchy white matter hypodensities i n both cerebral hemispheres. Stable focal calcific density left frontoparietal junction with adjacent white matter hypodensity. Paranasal sinuses and mastoid air cells well pneumatized. Orbits and globes are intact. IMPRESSION: Similar mild to moderate atrophy and stable parenchymal calcification left frontoparietal junction wi th adjacent white matter hypodensity likely location of prior hemorrhage or posttreatment change. Und erlying cavernoma is possible. Correlate with patient's history. No acute intracranial abnormality seen. Stable 1.4 cm meningioma near the left CP angle.
--- NOTE | 2018-10-15 16:51 | P.CONS ---
History of Present Illness - History of Present Illness This is a pleasant 73 years old female, with past medical history of breast cancer, left-sided meningioma that she follow up with Dr. Alfonzo Bland status post gamma knife procedure about one year ago and last time she followed up with her neurologist about 6 months ago, rest cancer, CVA/TIA with history of intracranial bleed in 2015 OMAYRA this might thus, GERD, hyperlipidemia, hypertension, seizure disorder "as per documentation had seizure-like symptoms on several occasions but never got a clear answer if it was" MRSA infection. She presents because of previous of confusion and urinary symptoms. As per patient and has been at bedside patient has increased in frequency of urination with dysuria, she is going about 30 times per day which is unusual for her. No associated abdominal pain but on exam she has suprapubic tenderness. Also says that she has periods when she got confused when he talks about her family or they are not available now and normal renal scan seen, which is concerning for hallucination and at times also she got two minutes of shakiness in her right arm with inability to use an for example during eating she drops utensils In the emergency room Vitas looks stable, CBC and BMP were unremarkable but urine analysis is suspicious for infection. She has a brain CT, possible underlying cavernoma with stable 1.4 cm meningioma and brain atrophy. She already got vancomycin and Rocephin. Besides 1 L of IV fluids and started on 100 mL per hour. Patient currently is fully awake and oriented and she knows why she is in the hospital. Review of Systems CONSTITUTIONAL: No fever, no malaise, no fatigue. HEENT: No recent visual problems or hearing problems. Denied any sore throat. CARDIOVASCULAR: No orthopnea, PND, no palpitations, no syncope. PULMONARY: No shortness of breath, no cough, no hemoptysis. GASTROINTESTINAL: No diarrhea, no nausea, no vomiting, no abdominal pain. Normoactive bowel sounds. NEUROLOGICAL: No headaches, no weakness, no numbness. HEMATOLOGICAL: Denies any bleeding or petechiae. GENITOURINARY: Denies any burning micturition, frequency, or urgency. MUSCULOSKELETAL/RHEUMATOLOGICAL: Denies any joint pain, swelling, or any muscle pain. ENDOCRINE: Denies any polyuria or polydipsia. 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 History of Any Multi-Drug Resistant Organisms: CRE, MRSA Year Discovered:: 08/13/18 MDRO Source:: urine. e coli,mrsa Past Surgical History: Hysterectomy Additional Past Surgical History / Comment(s): Total hysterectomy, right hip arthroplasty, laser surgery of the right eye of her bleeding, bladder suspension , right elbow metal plate , gamma knife procedure for meningoma lt side of brain 03-11-17 Past Anesthesia/Blood Transfusion Reactions: No Reported Reaction Past Psychological History: Anxiety, Bipolar, Depression Smoking Status: Former smoker Past Alcohol Use History: None Reported Past Drug Use History: None Reported - Past Family History Father Family Medical History: No Reported History Additional Family Medical History / Comment(s): Father is alive in his 80s and is a smoker. Patient does not know his medical history. Mother Family Medical History: No Reported History Additional Family Medical History / Comment(s): Mother at age 79 from Alzheimer's dementia. Sister(s) Family Medical History: Congestive Heart Failure (CHF) Additional Family Medical History / Comment(s): She has one sister that is from heart failure. Patient does not have any brothers. Patient has 2 daughters that are 45 and 42 years of age with no major medical problems. Medications and Allergies Home Medications Medication Instructions Recorded Confirmed Type Anastrozole [Arimidex] 1 mg PO DAILY 12/22/16 10/15/18 History Tolterodine Tartrate [Detrol LA] 4 mg PO HS 07/21/17 10/15/18 History Aspirin 81 mg PO DAILY chew 07/23/17 10/15/18 Rx Melatonin 3 mg PO HS 10/13/17 10/15/18 History Carvedilol [Coreg] 12.5 mg PO BID 03/03/18 10/15/18 History Empagliflozin [Jardiance] 10 mg PO DAILY 03/03/18 10/15/18 History Cholecalciferol [Vitamin D3] 1,000 unit PO DAILY 06/05/18 10/15/18 History Cyanocobalamin (Vitamin B-12) 1,000 mcg PO DAILY 06/05/18 10/15/18 History [Vitamin B-12] Multivitamins, Thera [Multivitamin 1 tab PO DAILY 06/05/18 10/15/18 History (formulary)] Ubidecarenone [Co Q-10] 100 mg PO DAILY 06/05/18 10/15/18 History busPIRone HCl [Buspar] 10 mg PO HS 06/05/18 10/15/18 History metFORMIN HCL [Glucophage] 500 mg PO BID 06/06/18 10/15/18 History Acetaminophen Tab [Tylenol] 650 mg PO Q6H PRN 07/31/18 10/15/18 History levETIRAcetam [Keppra] 1,000 mg PO Q12HR 07/31/18 10/15/18 History Cranberry 8400mg 8,400 mg PO BID 08/13/18 10/15/18 History Urivarx 840 mg PO BID 08/13/18 10/15/18 History busPIRone HCl [Buspar] 5 mg PO DAILY 08/13/18 10/15/18 History Atorvastatin Calcium [Lipitor] 10 mg PO HS 09/05/18 10/15/18 History risperiDONE [RisperDAL] 1 mg PO HS 09/05/18 10/15/18 History Cefuroxime Axetil [Ceftin] 500 mg PO BID 10/15/18 10/15/18 History Omeprazole 20 mg PO AC-SUPPER 10/15/18 10/15/18 History Allergies Allergy/AdvReac Type Severity Reaction Status Date / Time Sulfa (Sulfonamide Allergy Unknown Unknown Verified 10/15/18 14:33 Antibiotics) egg AdvReac Diarrhea Verified 10/15/18 14:33 solifenacin [From Vesicare] AdvReac Confusion/s Verified 10/15/18 14:33 haking Physical Exam Vitals: Vital Signs Temp Pulse Resp BP Pulse Ox 10/15/18 12:24 98.3 F 74 16 100/56 97 Intake and Output 10/15/18 10/15/18 10/15/18 06:59 14:59 22:59 Other: Weight 68.039 kg GENERAL: The patient is alert and oriented x3, not in any acute distress. Well developed, well nourished. HEENT: Pupils are round and equally reacting to light. EOMI. No scleral icterus. No conjunctival pallor. Normocephalic, atraumatic. No pharyngeal erythema. No thyromegaly. CARDIOVASCULAR: S1 and S2 present. No murmurs, rubs, or gallops. PULMONARY: Chest is clear to auscultation, no wheezing or crackles. ABDOMEN: Soft, suprapubic tenderness, nondistended, normoactive bowel sounds. No palpable organomegaly. MUSCULOSKELETAL: No joint swelling or deformity. EXTREMITIES: No cyanosis, clubbing, or pedal edema. NEUROLOGICAL: Gross neurological examination did not reveal any focal deficits. Strength 5/5 in all 4 extremities. Sensation is intact in all 4 extremities. Cranial nerves are grossly intact. No meningeal signs SKIN: No rashes. Results CBC & Chem 7: 10/15/18 13:46 10/15/18 13:46 Labs: Abnormal Lab Results - Last 24 Hours (Table) 10/15/18 10/15/18 Range/Units 13:46 14:30 BUN 18 H (7-17) mg/dL Glucose 109 H (74-99) mg/dL Urine Appearance Turbid H (Clear) Urine Protein 1+ H (Negative) Urine Glucose (UA) 4+ H (Negative) Urine Blood Small H (Negative) Ur Leukocyte Esterase Large H (Negative) Urine WBC >182 H (0-5) /hpf Urine WBC Clumps Many H (None) /hpf Urine Bacteria Rare H (None) /hpf Urine Mucus Rare H (None) /hpf Urine Yeast (Budding) Occasional H (None) /hpf Assessment and Plan Assessment: -Periods of confusion, hallucinations and shakiness in her right arm, suspicious for seizure which may be related to her underlying brain angioma and cavernoma. Recommended to transfer the patient to another facility where neurologist Evaluated the patient. Neurologist is not available at [facility] at this time. Patient can be sent leg [facility] for further evaluation -Urinary tract infection. Continue with antibiotic. Send urine culture. Recommend infectious disease consult -Periods of hallucination, mostly related to above. Patient denies depression. No signs symptoms of hopelessness or helplessness. Patient denies suicidal ideation -DVT prophylaxis -GI prophylaxis Prognosis is guarded Case was discussed with the emergency room attending to transfer the patient to another facility. Thank you for consulting us, please feel free to contact us for any further question or clarification Plan: Labs and medication were reviewed.. Continue same treatment. Continue with symptomatic treatment. Resume home medication. Monitor lytes and vitals. DVT and GI prophylaxis. Further recommendations of the clinical course of the patient DVT prophylaxis: Subcutaneous heparin GI Prophylaxis: Pepcid PT/OT: Pending Prognosis is guarded
[2018-10-15 17:07] VITALS: BP 121/61; PULSE 63; RESP 18; TEMP 98
[2018-10-16] MEDS ORDERED: VANCOMYCIN 1,250 MG in SODIUM CHLORIDE 0.9% 250 ML IVPB SCH (05:00)
== END 2018-10-15 18:15 ==
LOC: EC 12:21
DX: N39.0 Urinary tract infection, site not specified (principal); R53.1 Weakness; R41.0 Disorientation, unspecified; G31.9 Degenerative disease of nervous system, unspecified; R90.82 White matter disease, unspecified; D32.0 Benign neoplasm of cerebral meninges; R11.0 Nausea; R25.1 Tremor, unspecified; E78.5 Hyperlipidemia, unspecified; I10 Essential (primary) hypertension; E11.9 Type 2 diabetes mellitus without complications; G40.909 Epilepsy, unspecified, not intractable, without status epilepticus; K21.9 Gastro-esophageal reflux disease without esophagitis; N32.81 Overactive bladder; F31.9 Bipolar disorder, unspecified; F41.9 Anxiety disorder, unspecified; Z87.891 Personal history of nicotine dependence; Z88.8 Allergy status to other drugs, medicaments and biological substances; Z91.012 Allergy to eggs; Z79.84 Long term (current) use of oral hypoglycemic drugs; Z79.899 Other long term (current) drug therapy; Z86.73 Personal history of transient ischemic attack (TIA), and cerebral infarction without residual deficits; Z86.14 Personal history of Methicillin resistant Staphylococcus aureus infection; Z85.3 Personal history of malignant neoplasm of breast; Z96.641 Presence of right artificial hip joint; Z98.890 Other specified postprocedural states; Z86.79 Personal history of other diseases of the circulatory system; Z81.8 Family history of other mental and behavioral disorders
CPT/HCPCS: 36415; 70450; 80053; 81001; 85025; 87040; 87086; 96361; 96365; 96367; 99285

== ENCOUNTER 2018-12-26 17:20 | Emergency (ER) | payer MEDICARE, BC ==
[2018-12-26 17:28] VITALS: TEMP 98.9
--- NOTE | 2018-12-26 18:09 | ED ---
General Adult HPI - General Source: patient, RN notes reviewed Mode of arrival: ambulatory Limitations: no limitations <Mykel Tim - Last Filed: 12/26/18 18:50> <Yuliana Glover - Last Filed: 12/26/18 21:03> - General Chief complaint: Neuro Symptoms/Deficit Stated complaint: Not feeling good/poss uti Time Seen by Provider: 12/26/18 18:00 - History of Present Illness Initial comments: This is a 73-year-old female presents emergency Department with her . Patient comes in today because [facility] she was having some problems with coordination in her right hand. Patient states she also felt her right hand was weaker. Patient stated this lasted until she finished her dinner and then she decided come to the emergency department at which point in time the symptoms completely resolved. Patient also is concerned that she might have a urinary tract infection. Patient also has chronic abdominal pain which she is not currently experiencing. Patient denies any chest pain palpitations difficulty breathing shortness of breath. Patient states recently a few weeks ago she was at another hospital with similar symptoms and they did not find anything there and sent her home to follow-up with neurology. Patient states she has yet to make a neurology appointment. Patient denies any recent fever chills or cough. Patient denies lightheadedness dizziness or near syncopal episode. Patient denies any recent injury or trauma. Patient denies any abdominal pain patient denies nausea vomiting diarrhea. (Mykel Tim) - Related Data Home Medications Medication Instructions Recorded Confirmed Anastrozole [Arimidex] 1 mg PO DAILY 12/22/16 12/26/18 Tolterodine Tartrate [Detrol LA] 4 mg PO HS 07/21/17 12/26/18 Melatonin 3 mg PO HS 10/13/17 12/26/18 Empagliflozin [Jardiance] 10 mg PO DAILY 03/03/18 12/26/18 Cholecalciferol [Vitamin D3] 1,000 unit PO DAILY 06/05/18 12/26/18 Cyanocobalamin (Vitamin B-12) 1,000 mcg PO DAILY 06/05/18 12/26/18 [Vitamin B-12] Multivitamins, Thera [Multivitamin 1 tab PO DAILY 06/05/18 12/26/18 (formulary)] Ubidecarenone [Co Q-10] 100 mg PO DAILY 06/05/18 12/26/18 busPIRone HCl [Buspar] 10 mg PO HS 06/05/18 12/26/18 metFORMIN HCL [Glucophage] 500 mg PO BID 06/06/18 12/26/18 Acetaminophen Tab [Tylenol] 650 mg PO Q6H PRN 07/31/18 12/26/18 levETIRAcetam [Keppra] 1,000 mg PO Q12HR 07/31/18 12/26/18 Urivarx 840 mg PO BID 08/13/18 12/26/18 busPIRone HCl [Buspar] 5 mg PO DAILY 08/13/18 12/26/18 Atorvastatin Calcium [Lipitor] 10 mg PO HS 09/05/18 12/26/18 risperiDONE [RisperDAL] 1 mg PO HS 09/05/18 12/26/18 Omeprazole 20 mg PO DAILY 10/15/18 12/26/18 Carvedilol 25 mg PO BID 12/26/18 12/26/18 Cranberry Fruit Concentrate [Azo 250 mg PO DAILY 12/26/18 12/26/18 Cranberry] Nitrofurantoin Monohyd/M-Cryst 100 mg PO DAILY 12/26/18 12/26/18 [Macrobid] Previous Rx's Medication Instructions Recorded Aspirin 81 mg PO DAILY chew 07/23/17 Cephalexin [Keflex] 500 mg PO Q6HR 3 Days #12 cap 12/26/18 Allergies Allergy/AdvReac Type Severity Reaction Status Date / Time Sulfa (Sulfonamide Allergy Unknown Unknown Verified 12/26/18 17:46 Antibiotics) egg AdvReac Diarrhea Verified 12/26/18 17:46 solifenacin [From Vesicare] AdvReac Confusion/s Verified 12/26/18 17:46 haking Review of Systems ROS Other: All systems not noted in ROS Statement are negative. <Mykel Tim - Last Filed: 12/26/18 18:50> ROS Other: All systems not noted in ROS Statement are negative. <Yuliana Glover - Last Filed: 12/26/18 21:03> ROS Statement: Those systems with pertinent positive or pertinent negative responses have been documented in the HPI. 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 History of Any Multi-Drug Resistant Organisms: CRE, MRSA Date of last positivie culture/infection: 08/13/18 MDRO Source:: urine. e coli,mrsa Past Surgical History: Hysterectomy Additional Past Surgical History / Comment(s): Total hysterectomy, right hip arthroplasty, laser surgery of the right eye of her bleeding, bladder suspension, right elbow metal plate , gamma knife procedure for meningoma lt side of brain 03-11-17 Past Anesthesia/Blood Transfusion Reactions: No Reported Reaction Past Psychological History: Anxiety, Bipolar, Depression Smoking Status: Former smoker Past Alcohol Use History: None Reported Past Drug Use History: None Reported - Past Family History Father Family Medical History: No Reported History Additional Family Medical History / Comment(s): Father is alive in his 80s and is a smoker. Patient does not know his medical history. Mother Family Medical History: No Reported History Additional Family Medical History / Comment(s): Mother at age 79 from Alzheimer's dementia. Sister(s) Family Medical History: Congestive Heart Failure (CHF) Additional Family Medical History / Comment(s): She has one sister that is from heart failure. Patient does not have any brothers. Patient has 2 daughters that are 45 and 42 years of age with no major medical problems. <Mykel Tim - Last Filed: 12/26/18 18:50> General Exam Limitations: no limitations <Mykel Tim - Last Filed: 12/26/18 18:50> - General Exam Comments Initial Comments: GENERAL: Patient is well-developed and well-nourished. Patient is nontoxic and well- hydrated and is in no acute distress. ENT: Neck is soft and supple. No significant lymphadenopathy is noted. Oropharynx is clear. Moist mucous membranes. Neck has full range of motion without eliciting any pain. EYES: The sclera were anicteric and conjunctiva were pink and moist. Extraocular movements were intact and pupils were equal round and reactive to light. Eyelids were unremarkable. PULMONARY: Unlabored respirations. Good breath sounds bilaterally. No audible rales rhonchi or wheezing was noted. CARDIOVASCULAR: There is a regular rate and rhythm without any murmurs gallops or rubs. ABDOMEN: Soft and nontender with normal bowel sounds. No palpable organomegaly was noted. There is no palpable pulsatile mass. SKIN: Skin is clear with no lesions or rashes and otherwise unremarkable. NEUROLOGIC: Patient is alert and oriented x3. Cranial nerves II through XII are grossly intact. Motor and sensory are also intact. Normal speech, volume and content. Symmetrical smile. Cerebellar exam grossly intact. Patient has an NIH of 0 MUSCULOSKELETAL: Normal extremities with adequate strength and full range of motion. No lower extremity swelling or edema. No calf tenderness. LYMPHATICS: No significant lymphadenopathy is noted PSYCHIATRIC: Normal psychiatric evaluation. (Mykel Tim) Course Vital Signs 12/26/18 12/26/18 17:25 20:36 Temperature 98.9 F Pulse Rate 68 67 Respiratory 18 14 Rate Blood Pressure 139/74 154/78 O2 Sat by Pulse 99 98 Oximetry Medical Decision Making <Mykel Tim - Last Filed: 12/26/18 18:50> - Lab Data Result diagrams: 12/26/18 18:43 12/26/18 18:43 <Yuliana Glover - Last Filed: 12/26/18 21:03> - Medical Decision Making Dr. Glover will cheerfully take over the care of this patient at 7 PM ( Mykel Tim) Patient care was signed out to me at 7 PM. Patient was awaiting lab results as well as urinalysis area and there is a delay in obtaining the urinalysis as the patient ambulated to the restroom and chose to urinate in the trashcan rather than in the provided urine receptacle. Urinalysis did end up revealing a urinary tract infection. Keflex was given. First dose given in the emergency department and prescription was provided. These results were discussed with the patient who is very eager for discharge home. Given the patient did present with hand weakness I did offer to transfer her to a facility for further evaluation by neurology however patient would prefer outpatient follow-up. All questions pertaining to care were answered to the best of my ability return parameters were discussed the patient was discharged home in stable condition. An EKG was obtained at 7:01 PM, rate is 65 rhythm is sinus there is a normal axis there are normal intervals, AK 166, QRS 74, QTC is 422 there are no acute ST elevations depressions there is no evidence of acute ischemia infarction or arrhythmia. (Yuliana Glover) - Lab Data Lab Results 12/26/18 12/26/18 12/26/18 Range/Units 18:43 18:43 18:43 WBC 7.8 (3.8-10.6) k/uL RBC 4.45 (3.80-5.40) m/uL Hgb 12.4 (11.4-16.0) gm/dL Hct 38.9 (34.0-46.0) % MCV 87.4 (80.0-100.0) fL MCH 27.9 (25.0-35.0) pg MCHC 31.9 (31.0-37.0) g/dL RDW 14.3 (11.5-15.5) % Plt Count 240 (150-450) k/uL Neutrophils % 70 % Lymphocytes % 20 % Monocytes % 6 % Eosinophils % 2 % Basophils % 0 % Neutrophils # 5.4 (1.3-7.7) k/uL Lymphocytes # 1.6 (1.0-4.8) k/uL Monocytes # 0.5 (0-1.0) k/uL Eosinophils # 0.2 (0-0.7) k/uL Basophils # 0.0 (0-0.2) k/uL PT 10.2 (9.0-12.0) sec INR 0.9 (<1.2) APTT 21.8 L (22.0-30.0) sec Sodium 140 (137-145) mmol/L Potassium 4.0 (3.5-5.1) mmol/L Chloride 109 H (98-107) mmol/L Carbon Dioxide 21 L (22-30) mmol/L Anion Gap 10 mmol/L BUN 18 H (7-17) mg/dL Creatinine 0.53 (0.52-1.04) mg/dL Est GFR (CKD-EPI)AfAm >90 (>60 ml/min/1.73 sqM) Est GFR (CKD-EPI)NonAf >90 (>60 ml/min/1.73 sqM) Glucose 125 H (74-99) mg/dL Calcium 9.9 (8.4-10.2) mg/dL Total Bilirubin 0.4 (0.2-1.3) mg/dL AST 18 (14-36) U/L ALT 14 (9-52) U/L Alkaline Phosphatase 99 (38-126) U/L Troponin I (0.000-0.034) ng/mL Total Protein 6.8 (6.3-8.2) g/dL Albumin 4.0 (3.5-5.0) g/dL Urine Color Urine Appearance (Clear) Urine pH (5.0-8.0) Ur Specific [place] (1.001-1.035) Urine Protein (Negative) Urine Glucose (UA) (Negative) Urine Ketones (Negative) Urine Blood (Negative) Urine Nitrite (Negative) Urine Bilirubin (Negative) Urine Urobilinogen (<2.0) mg/dL Ur Leukocyte Esterase (Negative) Urine RBC (0-5) /hpf Urine WBC (0-5) /hpf Urine WBC Clumps (None) /hpf Amorphous Sediment (None) /hpf Urine Bacteria (None) /hpf 12/26/18 12/26/18 Range/Units 18:43 19:17 WBC (3.8-10.6) k/uL RBC (3.80-5.40) m/uL Hgb (11.4-16.0) gm/dL Hct (34.0-46.0) % MCV (80.0-100.0) fL MCH (25.0-35.0) pg MCHC (31.0-37.0) g/dL RDW (11.5-15.5) % Plt Count (150-450) k/uL Neutrophils % % Lymphocytes % % Monocytes % % Eosinophils % % Basophils % % Neutrophils # (1.3-7.7) k/uL Lymphocytes # (1.0-4.8) k/uL Monocytes # (0-1.0) k/uL Eosinophils # (0-0.7) k/uL Basophils # (0-0.2) k/uL PT (9.0-12.0) sec INR (<1.2) APTT (22.0-30.0) sec Sodium (137-145) mmol/L Potassium (3.5-5.1) mmol/L Chloride (98-107) mmol/L Carbon Dioxide (22-30) mmol/L Anion Gap mmol/L BUN (7-17) mg/dL Creatinine (0.52-1.04) mg/dL Est GFR (CKD-EPI)AfAm (>60 ml/min/1.73 sqM) Est GFR (CKD-EPI)NonAf (>60 ml/min/1.73 sqM) Glucose (74-99) mg/dL Calcium (8.4-10.2) mg/dL Total Bilirubin (0.2-1.3) mg/dL AST (14-36) U/L ALT (9-52) U/L Alkaline Phosphatase (38-126) U/L Troponin I <0.012 (0.000-0.034) ng/mL Total Protein (6.3-8.2) g/dL Albumin (3.5-5.0) g/dL Urine Color Yellow Urine Appearance Cloudy H (Clear) Urine pH 5.0 (5.0-8.0) Ur Specific [place] 1.011 (1.001-1.035) Urine Protein Trace H (Negative) Urine Glucose (UA) 4+ H (Negative) Urine Ketones Negative (Negative) Urine Blood Small H (Negative) Urine Nitrite Negative (Negative) Urine Bilirubin Negative (Negative) Urine Urobilinogen <2.0 (<2.0) mg/dL Ur Leukocyte Esterase Large H (Negative) Urine RBC 9 H (0-5) /hpf Urine WBC >182 H (0-5) /hpf Urine WBC Clumps Many H (None) /hpf Amorphous Sediment Rare H (None) /hpf Urine Bacteria Rare H (None) /hpf Disposition <Mykel Tim - Last Filed: 12/26/18 18:50> Is patient prescribed a controlled substance at d/c from ED?: No <Yuliana Glover - Last Filed: 12/26/18 21:03> Clinical Impression: UTI (urinary tract infection) Disposition: HOME SELF-CARE Condition: Stable Prescriptions: Cephalexin [Keflex] 500 mg PO Q6HR 3 Days #12 cap Referrals: Mani Hunt DO [Primary Care Provider] - 1-2 days
--- NOTE | 2018-12-26 18:29 | CT ---
EXAMINATION TYPE: CT brain wo con for TPA DATE OF EXAM: 12/26/2018 COMPARISON: 10/15/2018 HISTORY: ams, confusion CT DLP: 1047.4 mGycm Automated exposure control for dose reduction was used. FINDINGS: There is diffuse cerebral cortical atrophy. There is no mass effect nor midline shift. There is no si gn of intracranial hemorrhage. There is old left parietal 2 cm cortical infarct. Calvarium is intact. IMPRESSION: OLD LEFT PARIETAL INFARCT. NO ACUTE INTRACRANIAL ABNORMALITY. CEREBRAL ATROPHY. NO CHANGE.
--- NOTE | 2018-12-26 18:39 | XR ---
EXAMINATION TYPE: XR chest 2V DATE OF EXAM: 12/26/2018 COMPARISON: 09/05/2018 HISTORY: Altered mental status TECHNIQUE: Frontal and lateral views of the chest are obtained. FINDINGS: Heart and mediastinum appear normal. Lungs are clear of infiltrate. There is multiple old right-sided healed rib fractures. There is no pleural effusion. Thoracic spine is intact. IMPRESSION: No active cardiopulmonary disease. Normal heart. No change.
[2018-12-26 18:58] LABS: Basophils % (A) 0 %; Eosinophils # (A) 0.2 k/uL (0-0.7); Eosinophils % (A) 2 %; HCT 38.9 % (34.0-46.0); HGB 12.4 gm/dL (11.4-16.0); Lymphocytes # (A) 1.6 k/uL (1.0-4.8); Lymphocytes % (A) 20 %; MCH 27.9 pg (25.0-35.0); MCHC 31.9 g/dL (31.0-37.0); MCV 87.4 fL (80.0-100.0); Mean Platelet Volume 6.7; Monocytes # (A) 0.5 k/uL (0-1.0); Monocytes % (A) 6 %; Neutrophils # (A) 5.4 k/uL (1.3-7.7); Neutrophils % (A) 70 %; Platelet Count 240 k/uL (150-450); RBC 4.45 m/uL (3.80-5.40); RDW 14.3 % (11.5-15.5); WBC 7.8 k/uL (3.8-10.6)
[2018-12-26 19:07] LABS: ALT 14 U/L (9-52); AST 18 U/L (14-36); Alkaline Phosphatase 99 U/L (38-126); Anion Gap 10 mmol/L; Blood Urea Nitrogen 18 mg/dL (7-17); Calcium 9.9 mg/dL (8.4-10.2); Carbon Dioxide 21 mmol/L (22-30); Chloride 109 mmol/L (98-107); Glucose 125 mg/dL (74-99); Sodium 140 mmol/L (137-145); Total Bilirubin 0.4 mg/dL (0.2-1.3); Total Protein 6.8 g/dL (6.3-8.2)
[2018-12-26 19:16] LABS: INR 0.9 (<1.2); Partial Thromboplastin Time 21.8 sec (22.0-30.0); Prothrombin Time 10.2 sec (9.0-12.0)
[2018-12-26 19:32] LABS: Amorphous Sediment,Urine Rare /hpf; Appearance,Urine Cloudy (Clear); Bacteria,Urine Rare /hpf; Bilirubin,Urine Negative (Negative); Blood,Urine Small (Negative); Color,Urine Yellow; Glucose,Urine (UA) 4+ (Negative); Ketones,Urine Negative (Negative); Leukocyte Esterase,Urine Large (Negative); Nitrite,Urine Negative (Negative); Protein,Urine Trace (Negative); RBC,Urine 9 /hpf (0-5); Specific Gravity,Urine 1.011 (1.001-1.035); Urobilinogen,Urine <2.0 mg/dL (<2.0); WBC,Urine >182 /hpf (0-5)
[2018-12-26 20:37] VITALS: BP 154/78; PULSE 67; RESP 14
[2018-12-26] MEDS ORDERED: CEPHALEXIN 500MG STARTER PACK 4 CAP BTL PO STA (20:59)
== END 2018-12-26 21:14 | disposition home or self-care (01) ==
LOC: EC 17:20
DX: N39.0 Urinary tract infection, site not specified (principal); R53.1 Weakness; E11.9 Type 2 diabetes mellitus without complications; K21.9 Gastro-esophageal reflux disease without esophagitis; E78.5 Hyperlipidemia, unspecified; I10 Essential (primary) hypertension; G40.909 Epilepsy, unspecified, not intractable, without status epilepticus; F41.9 Anxiety disorder, unspecified; F31.9 Bipolar disorder, unspecified; Z79.84 Long term (current) use of oral hypoglycemic drugs; Z79.02 Long term (current) use of antithrombotics/antiplatelets; Z79.899 Other long term (current) drug therapy; Z88.2 Allergy status to sulfonamides; Z91.012 Allergy to eggs; Z88.8 Allergy status to other drugs, medicaments and biological substances; Z87.891 Personal history of nicotine dependence; Z86.73 Personal history of transient ischemic attack (TIA), and cerebral infarction without residual deficits; Z85.3 Personal history of malignant neoplasm of breast; Z96.641 Presence of right artificial hip joint
CPT/HCPCS: 36415; 70450; 71046; 80053; 81001; 84484; 85025; 85610; 85730; 93005; 99284

== ENCOUNTER 2019-01-16 17:30 | Emergency (ER) | payer MEDICARE, BC ==
[2019-01-16 17:35] VITALS: BP 115/72; PULSE 78; RESP 18; TEMP 98.7
[2019-01-16] MEDS ORDERED: SODIUM CHLORIDE 0.9% 1,000 ML IV STA (17:59)
--- NOTE | 2019-01-16 18:06 | ED ---
General Adult HPI - General Chief complaint: Weakness Stated complaint: Weakness Time Seen by Provider: 01/16/19 17:40 Source: patient, RN notes reviewed, old records reviewed Mode of arrival: wheelchair Limitations: no limitations - History of Present Illness Initial comments: 73-year-old female presenting with generalized weakness. Triage documentation does indicate she's had some confusion, patient does state that she felt a little foggy. She is alert and oriented the time my evaluation. Denies focal numbness or weakness. She has remote history of benign brain mass status post resection. She denies chest pain or dyspnea. Denies abdominal pain. No nausea vomiting or diarrhea. No fever or chills. She has had some dysuria and increased urinary frequency. - Related Data Home Medications Medication Instructions Recorded Confirmed Anastrozole [Arimidex] 1 mg PO DAILY 12/22/16 01/16/19 Tolterodine Tartrate [Detrol LA] 4 mg PO HS 07/21/17 01/16/19 Melatonin 3 mg PO HS 10/13/17 01/16/19 Empagliflozin [Jardiance] 10 mg PO DAILY 03/03/18 01/16/19 Cholecalciferol [Vitamin D3 (25 1,000 unit PO DAILY 06/05/18 01/16/19 Mcg = 1000 Iu)] Cyanocobalamin (Vitamin B-12) 1,000 mcg PO DAILY 06/05/18 01/16/19 [Vitamin B-12] Multivitamins, Thera [Multivitamin 1 tab PO DAILY 06/05/18 01/16/19 (formulary)] Ubidecarenone [Co Q-10] 100 mg PO DAILY 06/05/18 01/16/19 busPIRone HCl [Buspar] 10 mg PO HS 06/05/18 01/16/19 metFORMIN HCL [Glucophage] 500 mg PO BID 06/06/18 01/16/19 Acetaminophen Tab [Tylenol] 650 mg PO Q6H PRN 07/31/18 01/16/19 levETIRAcetam [Keppra] 1,000 mg PO Q12HR 07/31/18 01/16/19 busPIRone HCl [Buspar] 5 mg PO DAILY 08/13/18 01/16/19 Atorvastatin Calcium [Lipitor] 10 mg PO HS 09/05/18 01/16/19 risperiDONE [RisperDAL] 1 mg PO HS 09/05/18 01/16/19 Omeprazole 20 mg PO DAILY 10/15/18 01/16/19 Carvedilol 25 mg PO BID 12/26/18 01/16/19 Cranberry Fruit Concentrate [Azo 250 mg PO DAILY 12/26/18 01/16/19 Cranberry] Nitrofurantoin Monohyd/M-Cryst 100 mg PO DAILY 12/26/18 01/16/19 [Macrobid] Previous Rx's Medication Instructions Recorded Aspirin 81 mg PO DAILY chew 07/23/17 Cephalexin [Keflex] 500 mg PO Q12HR #20 cap 01/16/19 Allergies Allergy/AdvReac Type Severity Reaction Status Date / Time Sulfa (Sulfonamide Allergy Unknown Unknown Verified 01/16/19 19:33 Antibiotics) egg AdvReac Diarrhea Verified 01/16/19 19:33 solifenacin [From Vesicare] AdvReac Confusion/s Verified 01/16/19 19:33 lindsey Review of Systems ROS Statement: Those systems with pertinent positive or pertinent negative responses have been documented in the HPI. ROS Other: All systems not noted in ROS Statement are negative. 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 History of Any Multi-Drug Resistant Organisms: CRE, MRSA Date of last positivie culture/infection: 08/13/18 MDRO Source:: urine. e coli,mrsa Past Surgical History: Hysterectomy Additional Past Surgical History / Comment(s): Total hysterectomy, right hip arthroplasty, laser surgery of the right eye of her bleeding, bladder suspension, right elbow metal plate , gamma knife procedure for meningoma lt side of brain 03-11-17 Past Anesthesia/Blood Transfusion Reactions: No Reported Reaction Past Psychological History: Anxiety, Bipolar, Depression Smoking Status: Former smoker Past Alcohol Use History: None Reported Past Drug Use History: None Reported - Past Family History Father Family Medical History: No Reported History Additional Family Medical History / Comment(s): Father is alive in his 80s and is a smoker. Patient does not know his medical history. Mother Family Medical History: No Reported History Additional Family Medical History / Comment(s): Mother at age 79 from Alzheimer's dementia. Sister(s) Family Medical History: Congestive Heart Failure (CHF) Additional Family Medical History / Comment(s): She has one sister that is from heart failure. Patient does not have any brothers. Patient has 2 daughters that are 45 and 42 years of age with no major medical problems. General Exam Limitations: no limitations General appearance: alert, in no apparent distress Head exam: Present: atraumatic, normocephalic Eye exam: Present: normal appearance, PERRL, EOMI ENT exam: Present: mucous membranes dry Neck exam: Present: normal inspection. Absent: tenderness, meningismus Respiratory exam: Present: normal lung sounds bilaterally. Absent: respiratory distress, wheezes Cardiovascular Exam: Present: regular rate, normal rhythm GI/Abdominal exam: Present: soft. Absent: distended, tenderness, guarding Extremities exam: Present: normal inspection, normal capillary refill. Absent: pedal edema, calf tenderness Neurological exam: Present: alert, oriented X3, CN II-XII intact, normal gait. Absent: motor sensory deficit Psychiatric exam: Present: normal affect, normal mood Skin exam: Present: warm, dry, intact. Absent: cyanosis, diaphoretic Course Vital Signs 01/16/19 17:33 Temperature 98.7 F Pulse Rate 78 Respiratory 18 Rate Blood Pressure 115/72 O2 Sat by Pulse 96 Oximetry EKG Findings - EKG Comments: EKG Findings:: Normal sinus rhythm, rate 77, MA interval 162, QRS duration 82, QTC 4:30, no ST segment elevation Medical Decision Making - Medical Decision Making 72-year-old female with dysuria, generalized weakness. Concern for UTI. Patient does have remote history of brain CA. Workup is initiated emergency prompt. She receives a head CT which is negative for any acute intracranial abnormality, chest x-ray negative for focal pneumonia. She has normal CBC. Normal electrolytes patient has lactic acid of 3.0 consistent with some dehydration which is clinically evident. Urinalysis is significant for UTI. Patient is given a liter of normal saline. She is given IV antibiotics in the emergency department. On reevaluation she is feeling better, eager for discharge. I did offer the patient admission to hospital for continued IV hydration and IV antibiotics. She declines she prefers outpatient treatment. She will be prescribed empiric antibiotics awaiting culture results. She is encouraged to maintain oral hydration. She will return with worsening or changing symptoms. - Lab Data Result diagrams: 01/16/19 18:24 01/16/19 18:24 Lab Results 01/16/19 01/16/19 01/16/19 Range/Units 18:24 18:24 18:24 WBC 7.7 (3.8-10.6) k/uL RBC 4.15 (3.80-5.40) m/uL Hgb 12.0 (11.4-16.0) gm/dL Hct 35.5 (34.0-46.0) % MCV 85.6 (80.0-100.0) fL MCH 28.9 (25.0-35.0) pg MCHC 33.8 (31.0-37.0) g/dL RDW 14.2 (11.5-15.5) % Plt Count 213 (150-450) k/uL Neutrophils % 71 % Lymphocytes % 18 % Monocytes % 6 % Eosinophils % 2 % Basophils % 0 % Neutrophils # 5.4 (1.3-7.7) k/uL Lymphocytes # 1.4 (1.0-4.8) k/uL Monocytes # 0.5 (0-1.0) k/uL Eosinophils # 0.2 (0-0.7) k/uL Basophils # 0.0 (0-0.2) k/uL PT (9.0-12.0) sec INR (<1.2) APTT (22.0-30.0) sec Sodium 138 (137-145) mmol/L Potassium 4.1 (3.5-5.1) mmol/L Chloride 105 (98-107) mmol/L Carbon Dioxide 22 (22-30) mmol/L Anion Gap 11 mmol/L BUN 17 (7-17) mg/dL Creatinine 0.47 L (0.52-1.04) mg/dL Est GFR (CKD-EPI)AfAm >90 (>60 ml/min/1.73 sqM) Est GFR (CKD-EPI)NonAf >90 (>60 ml/min/1.73 sqM) Glucose 222 H (74-99) mg/dL Plasma Lactic Acid Rony 3.0 H* (0.7-2.0) mmol/L Calcium 9.9 (8.4-10.2) mg/dL Magnesium 1.5 L (1.6-2.3) mg/dL Total Bilirubin 0.6 (0.2-1.3) mg/dL AST 23 (14-36) U/L ALT 18 (9-52) U/L Alkaline Phosphatase 87 (38-126) U/L Troponin I (0.000-0.034) ng/mL Total Protein 6.6 (6.3-8.2) g/dL Albumin 3.9 (3.5-5.0) g/dL Urine Color Urine Appearance (Clear) Urine pH (5.0-8.0) Ur Specific [place] (1.001-1.035) Urine Protein (Negative) Urine Glucose (UA) (Negative) Urine Ketones (Negative) Urine Blood (Negative) Urine Nitrite (Negative) Urine Bilirubin (Negative) Urine Urobilinogen (<2.0) mg/dL Ur Leukocyte Esterase (Negative) Urine RBC (0-5) /hpf Urine WBC (0-5) /hpf Urine WBC Clumps (None) /hpf Ur Squamous Epith Cells (0-4) /hpf Urine Mucus (None) /hpf 01/16/19 01/16/19 01/16/19 Range/Units 18:24 18:24 18:35 WBC (3.8-10.6) k/uL RBC (3.80-5.40) m/uL Hgb (11.4-16.0) gm/dL Hct (34.0-46.0) % MCV (80.0-100.0) fL MCH (25.0-35.0) pg MCHC (31.0-37.0) g/dL RDW (11.5-15.5) % Plt Count (150-450) k/uL Neutrophils % % Lymphocytes % % Monocytes % % Eosinophils % % Basophils % % Neutrophils # (1.3-7.7) k/uL Lymphocytes # (1.0-4.8) k/uL Monocytes # (0-1.0) k/uL Eosinophils # (0-0.7) k/uL Basophils # (0-0.2) k/uL PT 10.2 (9.0-12.0) sec INR 0.9 (<1.2) APTT 23.1 (22.0-30.0) sec Sodium (137-145) mmol/L Potassium (3.5-5.1) mmol/L Chloride (98-107) mmol/L Carbon Dioxide (22-30) mmol/L Anion Gap mmol/L BUN (7-17) mg/dL Creatinine (0.52-1.04) mg/dL Est GFR (CKD-EPI)AfAm (>60 ml/min/1.73 sqM) Est GFR (CKD-EPI)NonAf (>60 ml/min/1.73 sqM) Glucose (74-99) mg/dL Plasma Lactic Acid Rony (0.7-2.0) mmol/L Calcium (8.4-10.2) mg/dL Magnesium (1.6-2.3) mg/dL Total Bilirubin (0.2-1.3) mg/dL AST (14-36) U/L ALT (9-52) U/L Alkaline Phosphatase (38-126) U/L Troponin I <0.012 (0.000-0.034) ng/mL Total Protein (6.3-8.2) g/dL Albumin (3.5-5.0) g/dL Urine Color Light Yellow Urine Appearance Cloudy H (Clear) Urine pH 5.5 (5.0-8.0) Ur Specific [place] 1.015 (1.001-1.035) Urine Protein Trace H (Negative) Urine Glucose (UA) 4+ H (Negative) Urine Ketones Negative (Negative) Urine Blood Small H (Negative) Urine Nitrite Negative (Negative) Urine Bilirubin Negative (Negative) Urine Urobilinogen <2.0 (<2.0) mg/dL Ur Leukocyte Esterase Large H (Negative) Urine RBC <1 (0-5) /hpf Urine WBC >182 H (0-5) /hpf Urine WBC Clumps Many H (None) /hpf Ur Squamous Epith Cells <1 (0-4) /hpf Urine Mucus Rare H (None) /hpf Disposition Clinical Impression: Dehydration, Weakness, UTI (urinary tract infection) Disposition: HOME SELF-CARE Condition: Good Instructions (If sedation given, give patient instructions): Urinary Tract Infection in Women (ED), Dehydration (ED) Prescriptions: Cephalexin [Keflex] 500 mg PO Q12HR #20 cap Is patient prescribed a controlled substance at d/c from ED?: No Referrals: Mani Hunt DO [Primary Care Provider] - 1-2 days Time of Disposition: 20:24
[2019-01-16 18:45] LABS: Basophils % (A) 0 %; Eosinophils # (A) 0.2 k/uL (0-0.7); Eosinophils % (A) 2 %; HCT 35.5 % (34.0-46.0); Lymphocytes # (A) 1.4 k/uL (1.0-4.8); Lymphocytes % (A) 18 %; MCH 28.9 pg (25.0-35.0); MCHC 33.8 g/dL (31.0-37.0); MCV 85.6 fL (80.0-100.0); Mean Platelet Volume 7.1; Monocytes # (A) 0.5 k/uL (0-1.0); Monocytes % (A) 6 %; Neutrophils # (A) 5.4 k/uL (1.3-7.7); Neutrophils % (A) 71 %; Platelet Count 213 k/uL (150-450); RBC 4.15 m/uL (3.80-5.40); RDW 14.2 % (11.5-15.5); WBC 7.7 k/uL (3.8-10.6)
[2019-01-16 18:51] LABS: Appearance,Urine Cloudy (Clear); Bilirubin,Urine Negative (Negative); Blood,Urine Small (Negative); Color,Urine Light Yellow; Glucose,Urine (UA) 4+ (Negative); Ketones,Urine Negative (Negative); Leukocyte Esterase,Urine Large (Negative); Mucus,Urine Rare /hpf; Nitrite,Urine Negative (Negative); PH, Urine 5.5 (5.0-8.0); Protein,Urine Trace (Negative); RBC,Urine <1 /hpf (0-5); Specific Gravity,Urine 1.015 (1.001-1.035); Squamous Epithelial Cell,Urine <1 /hpf (0-4); Urobilinogen,Urine <2.0 mg/dL (<2.0); WBC,Urine >182 /hpf (0-5)
[2019-01-16 18:53] LABS: INR 0.9 (<1.2); Partial Thromboplastin Time 23.1 sec (22.0-30.0); Prothrombin Time 10.2 sec (9.0-12.0)
[2019-01-16 19:05] LABS: Albumin 3.9 g/dL (3.5-5.0); Anion Gap 11 mmol/L; Blood Urea Nitrogen 17 mg/dL (7-17); Calcium 9.9 mg/dL (8.4-10.2); Carbon Dioxide 22 mmol/L (22-30); Chloride 105 mmol/L (98-107); Glucose 222 mg/dL (74-99); Sodium 138 mmol/L (137-145); Total Bilirubin 0.6 mg/dL (0.2-1.3); Total Protein 6.6 g/dL (6.3-8.2)
--- NOTE | 2019-01-16 19:13 | CT ---
EXAMINATION TYPE: CT brain wo con DATE OF EXAM: 01/16/2019 COMPARISON: 12/26/2018 HISTORY: Weakness. CT DLP: 1035.4 mGycm Automated exposure control for dose reduction was used. FINDINGS: Multiple axial sections were obtained of the brain with no contrast. There is cerebral cortical atrop hy. There is no mass effect nor midline shift. There is no sign of intracranial hemorrhage. The patrick rium is intact. IMPRESSION: CEREBRAL ATROPHY. NO ACUTE INTRACRANIAL ABNORMALITY. NO CHANGE.
[2019-01-16] MEDS ORDERED: cefTRIAXone IN SWFI 1,000 MG/10 ML SYRINGE IVP STA (19:37)
[2019-01-16 19:41] LABS: ALT 18 U/L (9-52); AST 23 U/L (14-36); Alkaline Phosphatase 87 U/L (38-126); Magnesium 1.5 mg/dL (1.6-2.3); Potassium 4.1 mmol/L (3.5-5.1)
--- NOTE | 2019-01-16 19:42 | XR ---
EXAMINATION TYPE: XR chest 2V DATE OF EXAM: 01/16/2019 COMPARISON: 12/26/2018 HISTORY: Weakness TECHNIQUE: Frontal and lateral views of the chest are obtained. FINDINGS: There are multiple right-sided healed rib fractures. Heart and mediastinum are normal. Elizabeth gs are clear of infiltrate. There is no pleural effusion. There is no heart failure. Heart size is no rmal. There is spurring in the thoracic spine. IMPRESSION: No active cardiopulmonary disease. No change.
== END 2019-01-16 21:07 | disposition home or self-care (01) ==
LOC: EC 17:30
DX: N39.0 Urinary tract infection, site not specified (principal); E86.0 Dehydration; E11.9 Type 2 diabetes mellitus without complications; K21.9 Gastro-esophageal reflux disease without esophagitis; E78.5 Hyperlipidemia, unspecified; I10 Essential (primary) hypertension; G40.909 Epilepsy, unspecified, not intractable, without status epilepticus; F41.9 Anxiety disorder, unspecified; F31.9 Bipolar disorder, unspecified; Z79.02 Long term (current) use of antithrombotics/antiplatelets; Z79.84 Long term (current) use of oral hypoglycemic drugs; Z79.899 Other long term (current) drug therapy; Z88.2 Allergy status to sulfonamides; Z88.8 Allergy status to other drugs, medicaments and biological substances; Z91.012 Allergy to eggs; Z87.891 Personal history of nicotine dependence; Z96.641 Presence of right artificial hip joint; Z85.3 Personal history of malignant neoplasm of breast; Z86.73 Personal history of transient ischemic attack (TIA), and cerebral infarction without residual deficits; Z85.841 Personal history of malignant neoplasm of brain; Z98.890 Other specified postprocedural states
CPT/HCPCS: 36415; 93005; 80053; 83605; 83735; 84484; 85025; 85610; 85730; 81001; 87086; 71046; 70450; 99285; 96374; 96361 ×2; J0696

== ENCOUNTER → 2019-01-26 | Outpatient (CLI) | payer MEDICARE, BC ==
--- NOTE | 2019-01-26 14:29 | MR ---
EXAMINATION TYPE: MR brain wo con DATE OF EXAM: 01/26/2019 COMPARISON: 06/08/2018 HISTORY: 73 year-old female follow-up on meningioma, worsening mental status, prior gamma knife. Chriss ngioma. TECHNIQUE: Multiplanar, multisequence images of the brain and brainstem were acquired without IV con trast. Diffusion weighted imaging is performed. Unsuccessful attempts at IV access. IV contrast could not be administered. FINDINGS: No evidence for acute infarction, hemorrhage, mass effect, midline shift, herniation, effacement of b law cisterns, or extra-axial fluid collection. Moderate generalized supratentorial volume loss with similar mild ventriculomegaly. Stable focus of susceptibility artifact in the left posterior parietal lobe. Gyriform low signal is a lso present and may represent hemosiderin deposition. Surrounding vasogenic edema within the posterio r left parietal lobe is unchanged. IV contrast could not be administered to assess for enhancing component. Mild scattered white white matter changes particularly in the periventricular and subcortical region is nonspecific, likely relates to chronic small vessel ischemic disease. Stable mildly T2 hyperintense 1.3 x 1.0 cm meningioma along the anterior aspect of the left posterior cranial fossa. Midline structures demonstrate normal morphology. The craniocervical junction is normal. Mild mucosal thickening within the ethmoid air cells. Globes are intact. IMPRESSION: 1. Note that IV contrast could not be administered. There were 3 unsuccessful attempts at obtaining I V access. 2. Stable focus of susceptibility artifact, probable combination of calcification and hemosiderin dep osition in the posterior left parietal lobe. Unable to assess for the enhancing component to compare from 06/08/2018. The overall morphology is similar from then as is the surrounding bright white matter change probably corresponding to radiation therapy change. No mass effect or midline shift. 3. Stable 1.3 cm meningioma in the left posterior cranial fossa. 4. Moderate generalized atrophy and mild ex vacuo ventriculomegaly are unchanged.
== END | disposition home or self-care (01) ==
LOC: RADMRIMAIN 11:54
PROVIDERS: ATTEND Psychiatry & Neurology Neurology
DX: D32.0 Benign neoplasm of cerebral meninges (principal); G31.9 Degenerative disease of nervous system, unspecified
CPT/HCPCS: 70551

== ENCOUNTER 2019-01-27 16:33 | Emergency (ER) | payer MEDICARE, BC ==
[2019-01-27 16:37] VITALS: BP 153/94; PULSE 81; RESP 20; TEMP 98.7
[2019-01-27] MEDS ORDERED: LORazepam 1 MG TAB PO STA (16:59)
--- NOTE | 2019-01-27 17:03 | ED ---
General Adult HPI - General Chief complaint: Anxiety Stated complaint: tremors Time Seen by Provider: 01/27/19 16:35 Source: patient, RN notes reviewed Mode of arrival: ambulatory Limitations: no limitations - History of Present Illness Initial comments: This is a 73-year-old female with past medical history significant for anxiety. Patient states also on aging came to the house and made recommendations that she needed to go with them twice a week and she got very upset because she didn't relieve her . Patient states then she started having a shaking spell and it was 1 the worse when she's ever had. Patient states since resolved. Patient states she had no pain patient denies any chest pain difficult breathing shortest breath. Patient denies any abdominal pain patient denies nausea vomiting diarrhea per patient denies any lightheadedness or dizziness. Patient denied headache patient denied any numbness or weakness. Patient states she gets shaking so bad she can't pick anything up but this has happened multiple times over the last few months and usually is associated with anxiety. Patient states currently she has no complaints and does not want to be here any longer. Patient agrees that she will do a counseling on aging wants because she thinks will be healthy for her. is in the room and agrees that the patient probably had an anxiety attack. - Related Data Home Medications Medication Instructions Recorded Confirmed Anastrozole [Arimidex] 1 mg PO DAILY 12/22/16 01/27/19 Tolterodine Tartrate [Detrol LA] 4 mg PO HS 07/21/17 01/27/19 Melatonin 3 mg PO HS 10/13/17 01/27/19 Empagliflozin [Jardiance] 10 mg PO DAILY 03/03/18 01/27/19 Cholecalciferol [Vitamin D3 (25 1,000 unit PO DAILY 06/05/18 01/27/19 Mcg = 1000 Iu)] Cyanocobalamin (Vitamin B-12) 1,000 mcg PO DAILY 06/05/18 01/27/19 [Vitamin B-12] Multivitamins, Thera [Multivitamin 1 tab PO DAILY 06/05/18 01/27/19 (formulary)] Ubidecarenone [Co Q-10] 100 mg PO DAILY 06/05/18 01/27/19 busPIRone HCl [Buspar] 10 mg PO HS 06/05/18 01/27/19 metFORMIN HCL [Glucophage] 500 mg PO BID 06/06/18 01/27/19 Acetaminophen Tab [Tylenol] 650 mg PO Q6H PRN 07/31/18 01/27/19 levETIRAcetam [Keppra] 1,000 mg PO Q12HR 07/31/18 01/27/19 busPIRone HCl [Buspar] 5 mg PO DAILY 08/13/18 01/27/19 Atorvastatin Calcium [Lipitor] 10 mg PO HS 09/05/18 01/27/19 risperiDONE [RisperDAL] 1 mg PO HS 09/05/18 01/27/19 Omeprazole 20 mg PO DAILY 10/15/18 01/27/19 Carvedilol 25 mg PO BID 12/26/18 01/27/19 Cranberry Fruit Concentrate [Azo 250 mg PO DAILY 12/26/18 01/27/19 Cranberry] Nitrofurantoin Monohyd/M-Cryst 100 mg PO DAILY 12/26/18 01/27/19 [Macrobid] Previous Rx's Medication Instructions Recorded Aspirin 81 mg PO DAILY chew 07/23/17 Allergies Allergy/AdvReac Type Severity Reaction Status Date / Time Sulfa (Sulfonamide Allergy Unknown Unknown Verified 01/27/19 16:47 Antibiotics) egg AdvReac Diarrhea Verified 01/27/19 16:47 solifenacin [From Vesicare] AdvReac Confusion/s Verified 01/27/19 16:47 haking Review of Systems ROS Statement: Those systems with pertinent positive or pertinent negative responses have been documented in the HPI. ROS Other: All systems not noted in ROS Statement are negative. 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 History of Any Multi-Drug Resistant Organisms: CRE, MRSA Date of last positivie culture/infection: 08/13/18 MDRO Source:: urine. e coli,mrsa Past Surgical History: Hysterectomy Additional Past Surgical History / Comment(s): Total hysterectomy, right hip arthroplasty, laser surgery of the right eye of her bleeding, bladder suspension, right elbow metal plate , gamma knife procedure for meningoma lt side of brain 03-11-17 Past Anesthesia/Blood Transfusion Reactions: No Reported Reaction Past Psychological History: Anxiety, Bipolar, Depression Smoking Status: Former smoker Past Alcohol Use History: None Reported Past Drug Use History: None Reported - Past Family History Father Family Medical History: No Reported History Additional Family Medical History / Comment(s): Father is alive in his 80s and is a smoker. Patient does not know his medical history. Mother Family Medical History: No Reported History Additional Family Medical History / Comment(s): Mother at age 79 from Alzheimer's dementia. Sister(s) Family Medical History: Congestive Heart Failure (CHF) Additional Family Medical History / Comment(s): She has one sister that is from heart failure. Patient does not have any brothers. Patient has 2 daughters that are 45 and 42 years of age with no major medical problems. General Exam - General Exam Comments Initial Comments: GENERAL: Patient is well-developed and well-nourished. Patient is nontoxic and well- hydrated and is in no acute distress. ENT: Neck is soft and supple. No significant lymphadenopathy is noted. Oropharynx is clear. Moist mucous membranes. Neck has full range of motion without eliciting any pain. EYES: The sclera were anicteric and conjunctiva were pink and moist. Extraocular movements were intact and pupils were equal round and reactive to light. Eyelids were unremarkable. PULMONARY: Unlabored respirations. Good breath sounds bilaterally. No audible rales rhonchi or wheezing was noted. CARDIOVASCULAR: There is a regular rate and rhythm without any murmurs gallops or rubs. ABDOMEN: Soft and nontender with normal bowel sounds. No palpable organomegaly was noted. There is no palpable pulsatile mass. SKIN: Skin is clear with no lesions or rashes and otherwise unremarkable. NEUROLOGIC: Patient is alert and oriented x3. Cranial nerves II through XII are grossly intact. Motor and sensory are also intact. Normal speech, volume and content. Symmetrical smile. Patient did finger to nose testing bilaterally without problem. Patient had no drift MUSCULOSKELETAL: Normal extremities with adequate strength and full range of motion. LYMPHATICS: No significant lymphadenopathy is noted PSYCHIATRIC: Patient is mildly anxious Limitations: no limitations Course Vital Signs 01/27/19 16:34 Temperature 98.7 F Pulse Rate 81 Respiratory 20 Rate Blood Pressure 153/94 O2 Sat by Pulse 99 Oximetry Disposition Clinical Impression: Acute anxiety Disposition: HOME SELF-CARE Condition: Good Instructions (If sedation given, give patient instructions): Generalized Anxiety Disorder (ED) Is patient prescribed a controlled substance at d/c from ED?: No Referrals: Mani Hunt DO [Primary Care Provider] - 1-2 days Time of Disposition: 17:02
== END 2019-01-27 17:30 | disposition home or self-care (01) ==
LOC: EC 16:33
DX: F41.9 Anxiety disorder, unspecified (principal); E11.9 Type 2 diabetes mellitus without complications; K21.9 Gastro-esophageal reflux disease without esophagitis; E78.5 Hyperlipidemia, unspecified; I10 Essential (primary) hypertension; G40.909 Epilepsy, unspecified, not intractable, without status epilepticus; F32.9 Major depressive disorder, single episode, unspecified; Z85.3 Personal history of malignant neoplasm of breast; Z86.73 Personal history of transient ischemic attack (TIA), and cerebral infarction without residual deficits; Z86.14 Personal history of Methicillin resistant Staphylococcus aureus infection; Z96.641 Presence of right artificial hip joint; Z87.891 Personal history of nicotine dependence; Z79.84 Long term (current) use of oral hypoglycemic drugs; Z79.899 Other long term (current) drug therapy; Z88.2 Allergy status to sulfonamides; Z91.012 Allergy to eggs; Z88.8 Allergy status to other drugs, medicaments and biological substances
CPT/HCPCS: 99283

== ENCOUNTER 2019-02-08 11:19 | Emergency (ER) | payer MEDICARE, BC ==
[2019-02-08 11:32] VITALS: TEMP 98.2
[2019-02-08] MEDS ORDERED: SODIUM CHLORIDE 0.9% 500 ML 500 ML IV ONE (12:08)
--- NOTE | 2019-02-08 12:25 | ED ---
General Adult HPI - General Chief complaint: Nausea/Vomiting/Diarrhea Stated complaint: Diarrhea Time Seen by Provider: 02/08/19 11:48 Source: patient, RN notes reviewed, old records reviewed Mode of arrival: ambulatory - History of Present Illness Initial comments: 74-year-old female presents for evaluation of diarrhea. Patient had 2 episodes of diarrhea today. Describes as loose brown stool. No melena. No rectal bleeding. Patient was constipated over the past several days. She took prune juice, prunes, and milk of magnesia last night. She developed diarrhea today. No fever chills. No pain complaints. No recent travel. - Related Data Home Medications Medication Instructions Recorded Confirmed Anastrozole [Arimidex] 1 mg PO DAILY 12/22/16 01/27/19 Tolterodine Tartrate [Detrol LA] 4 mg PO HS 07/21/17 01/27/19 Melatonin 3 mg PO HS 10/13/17 01/27/19 Empagliflozin [Jardiance] 10 mg PO DAILY 03/03/18 01/27/19 Cholecalciferol [Vitamin D3 (25 1,000 unit PO DAILY 06/05/18 01/27/19 Mcg = 1000 Iu)] Cyanocobalamin (Vitamin B-12) 1,000 mcg PO DAILY 06/05/18 01/27/19 [Vitamin B-12] Multivitamins, Thera [Multivitamin 1 tab PO DAILY 06/05/18 01/27/19 (formulary)] Ubidecarenone [Co Q-10] 100 mg PO DAILY 06/05/18 01/27/19 busPIRone HCl [Buspar] 10 mg PO HS 06/05/18 01/27/19 metFORMIN HCL [Glucophage] 500 mg PO BID 06/06/18 01/27/19 Acetaminophen Tab [Tylenol] 650 mg PO Q6H PRN 07/31/18 01/27/19 levETIRAcetam [Keppra] 1,000 mg PO Q12HR 07/31/18 01/27/19 busPIRone HCl [Buspar] 5 mg PO DAILY 08/13/18 01/27/19 Atorvastatin Calcium [Lipitor] 10 mg PO HS 09/05/18 01/27/19 risperiDONE [RisperDAL] 1 mg PO HS 09/05/18 01/27/19 Omeprazole 20 mg PO DAILY 10/15/18 01/27/19 Carvedilol 25 mg PO BID 12/26/18 01/27/19 Cranberry Fruit Concentrate [Azo 250 mg PO DAILY 12/26/18 01/27/19 Cranberry] Nitrofurantoin Monohyd/M-Cryst 100 mg PO DAILY 12/26/18 01/27/19 [Macrobid] Previous Rx's Medication Instructions Recorded Aspirin 81 mg PO DAILY chew 07/23/17 Nitrofurantoin Monohyd/M-Cryst 100 mg PO Q12HR #20 cap 02/08/19 [Macrobid] Allergies Allergy/AdvReac Type Severity Reaction Status Date / Time Sulfa (Sulfonamide Allergy Unknown Unknown Verified 02/08/19 11:28 Antibiotics) egg AdvReac Diarrhea Verified 02/08/19 11:28 solifenacin [From Vesic[facility]] AdvReac Confusion/s Verified 02/08/19 11:28 lindsey Review of Systems ROS Statement: Those systems with pertinent positive or pertinent negative responses have been documented in the HPI. ROS Other: All systems not noted in ROS Statement are negative. 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 History of Any Multi-Drug Resistant Organisms: CRE, MRSA Date of last positivie culture/infection: 08/13/18 MDRO Source:: urine. e coli,mrsa Past Surgical History: Hysterectomy Additional Past Surgical History / Comment(s): Total hysterectomy, right hip arthroplasty, laser surgery of the right eye of her bleeding, bladder suspension, right elbow metal plate , gamma knife procedure for meningoma lt side of brain 03-11-17 Past Anesthesia/Blood Transfusion Reactions: No Reported Reaction Past Psychological History: Anxiety, Bipolar, Depression Smoking Status: Former smoker Past Alcohol Use History: None Reported Past Drug Use History: None Reported - Past Family History Father Family Medical History: No Reported History Additional Family Medical History / Comment(s): Father is alive in his 80s and is a smoker. Patient does not know his medical history. Mother Family Medical History: No Reported History Additional Family Medical History / Comment(s): Mother at age 79 from Alzheimer's dementia. Sister(s) Family Medical History: Congestive Heart Failure (CHF) Additional Family Medical History / Comment(s): She has one sister that is from heart failure. Patient does not have any brothers. Patient has 2 daughters that are 45 and 42 years of age with no major medical problems. General Exam General appearance: alert, in no apparent distress Head exam: Present: atraumatic, normocephalic Eye exam: Present: normal appearance, PERRL ENT exam: Present: mucous membranes dry Neck exam: Present: normal inspection. Absent: tenderness, meningismus Respiratory exam: Present: normal lung sounds bilaterally. Absent: respiratory distress, wheezes Cardiovascular Exam: Present: regular rate, normal rhythm GI/Abdominal exam: Present: soft. Absent: distended, tenderness, guarding, rebound Extremities exam: Present: normal inspection, normal capillary refill. Absent: pedal edema Back exam: Present: normal inspection Neurological exam: Present: alert, oriented X3, CN II-XII intact. Absent: motor sensory deficit Psychiatric exam: Present: normal affect, normal mood Skin exam: Present: warm, dry, intact. Absent: cyanosis, diaphoretic Course Vital Signs 02/08/19 11:29 Temperature 98.2 F Pulse Rate 71 Respiratory 18 Rate Blood Pressure 119/76 O2 Sat by Pulse 95 Oximetry Medical Decision Making - Medical Decision Making 74-year-old female presenting with 2 episodes of diarrhea after a several day course of constipation. No abdominal pain. No vomiting. Patient did report previous dysuria. She is well-appearing with stable vitals. She has soft nond istended abdomen with no tenderness. She has normal CBC no leukocytosis, normal CMP and normal electrolyte abnormalities. She has a urinalysis showing elevated leukocyte esterase, greater than 182 white cells. Urine culture will be obtained. She will be started on antibiotics. She will - Lab Data Result diagrams: 02/08/19 14:09 02/08/19 14:09 Lab Results 02/08/19 02/08/19 02/08/19 Range/Units 13:15 14:09 14:09 WBC 7.2 (3.8-10.6) k/uL RBC 4.57 (3.80-5.40) m/uL Hgb 13.0 (11.4-16.0) gm/dL Hct 41.0 (34.0-46.0) % MCV 89.9 (80.0-100.0) fL MCH 28.4 (25.0-35.0) pg MCHC 31.6 (31.0-37.0) g/dL RDW 13.4 (11.5-15.5) % Plt Count 161 (150-450) k/uL Neutrophils % 73 % Lymphocytes % 15 % Monocytes % 7 % Eosinophils % 2 % Basophils % 1 % Neutrophils # 5.3 (1.3-7.7) k/uL Lymphocytes # 1.1 (1.0-4.8) k/uL Monocytes # 0.5 (0-1.0) k/uL Eosinophils # 0.1 (0-0.7) k/uL Basophils # 0.0 (0-0.2) k/uL Hypochromasia Slight Sodium 140 (137-145) mmol/L Potassium 4.6 (3.5-5.1) mmol/L Chloride 106 (98-107) mmol/L Carbon Dioxide 21 L (22-30) mmol/L Anion Gap 13 mmol/L BUN 20 H (7-17) mg/dL Creatinine 0.61 (0.52-1.04) mg/dL Est GFR (CKD-EPI)AfAm >90 (>60 ml/min/1.73 sqM) Est GFR (CKD-EPI)NonAf >90 (>60 ml/min/1.73 sqM) Glucose 117 H (74-99) mg/dL Calcium 10.3 H (8.4-10.2) mg/dL Magnesium 1.7 (1.6-2.3) mg/dL Total Bilirubin 0.6 (0.2-1.3) mg/dL AST 24 (14-36) U/L ALT 11 (9-52) U/L Alkaline Phosphatase 116 (38-126) U/L Total Protein 7.5 (6.3-8.2) g/dL Albumin 4.3 (3.5-5.0) g/dL Urine Color Yellow Urine Appearance Turbid H (Clear) Urine pH 5.5 (5.0-8.0) Ur Specific [place] 1.019 (1.001-1.035) Urine Protein 2+ H (Negative) Urine Glucose (UA) 4+ H (Negative) Urine Ketones Negative (Negative) Urine Blood Moderate H (Negative) Urine Nitrite Negative (Negative) Urine Bilirubin Negative (Negative) Urine Urobilinogen <2.0 (<2.0) mg/dL Ur Leukocyte Esterase Large H (Negative) Urine WBC >182 H (0-5) /hpf Urine WBC Clumps Many H (None) /hpf Ur Squamous Epith Cells 5 H (0-4) /hpf Urine Yeast (Budding) Many H (None) /hpf Disposition Clinical Impression: Diarrhea, UTI (urinary tract infection) Disposition: HOME SELF-CARE Condition: Good Instructions (If sedation given, give patient instructions): Acute Diarrhea (ED), Urinary Tract Infection in Women (ED) Prescriptions: Nitrofurantoin Monohyd/M-Cryst [Macrobid] 100 mg PO Q12HR #20 cap Is patient prescribed a controlled substance at d/c from ED?: No Referrals: Mani Hunt DO [Primary Care Provider] - 1-2 days Time of Disposition: 15:04
[2019-02-08 13:49] LABS: Appearance,Urine Turbid (Clear); Bilirubin,Urine Negative (Negative); Blood,Urine Moderate (Negative); Budding Yeast,Urine Many /hpf; Color,Urine Yellow; Glucose,Urine (UA) 4+ (Negative); Ketones,Urine Negative (Negative); Leukocyte Esterase,Urine Large (Negative); Nitrite,Urine Negative (Negative); PH, Urine 5.5 (5.0-8.0); Protein,Urine 2+ (Negative); Specific Gravity,Urine 1.019 (1.001-1.035); Squamous Epithelial Cell,Urine 5 /hpf (0-4); Urobilinogen,Urine <2.0 mg/dL (<2.0); WBC,Urine >182 /hpf (0-5)
[2019-02-08 14:32] LABS: ALT 11 U/L (9-52); AST 24 U/L (14-36); Albumin 4.3 g/dL (3.5-5.0); Alkaline Phosphatase 116 U/L (38-126); Anion Gap 13 mmol/L; Blood Urea Nitrogen 20 mg/dL (7-17); Calcium 10.3 mg/dL (8.4-10.2); Carbon Dioxide 21 mmol/L (22-30); Chloride 106 mmol/L (98-107); Glucose 117 mg/dL (74-99); Magnesium 1.7 mg/dL (1.6-2.3); Potassium 4.6 mmol/L (3.5-5.1); Sodium 140 mmol/L (137-145); Total Bilirubin 0.6 mg/dL (0.2-1.3); Total Protein 7.5 g/dL (6.3-8.2)
[2019-02-08 14:33] LABS: Basophils % (A) 1 %; Eosinophils # (A) 0.1 k/uL (0-0.7); Eosinophils % (A) 2 %; Hypochromasia Slight; Lymphocytes # (A) 1.1 k/uL (1.0-4.8); Lymphocytes % (A) 15 %; MCH 28.4 pg (25.0-35.0); MCHC 31.6 g/dL (31.0-37.0); MCV 89.9 fL (80.0-100.0); Mean Platelet Volume 8.1; Monocytes # (A) 0.5 k/uL (0-1.0); Monocytes % (A) 7 %; Neutrophils # (A) 5.3 k/uL (1.3-7.7); Neutrophils % (A) 73 %; Platelet Count 161 k/uL (150-450); RBC 4.57 m/uL (3.80-5.40); RDW 13.4 % (11.5-15.5); WBC 7.2 k/uL (3.8-10.6)
[2019-02-08 15:03] VITALS: BP 126/78; PULSE 68; RESP 16
== END 2019-02-08 15:20 | disposition home or self-care (01) ==
LOC: EC 11:19
DX: N39.0 Urinary tract infection, site not specified (principal); R19.7 Diarrhea, unspecified; E11.9 Type 2 diabetes mellitus without complications; K21.9 Gastro-esophageal reflux disease without esophagitis; E78.5 Hyperlipidemia, unspecified; I10 Essential (primary) hypertension; G40.909 Epilepsy, unspecified, not intractable, without status epilepticus; F31.9 Bipolar disorder, unspecified; F41.9 Anxiety disorder, unspecified; Z85.3 Personal history of malignant neoplasm of breast; Z85.841 Personal history of malignant neoplasm of brain; Z86.14 Personal history of Methicillin resistant Staphylococcus aureus infection; Z86.73 Personal history of transient ischemic attack (TIA), and cerebral infarction without residual deficits; Z87.891 Personal history of nicotine dependence; Z79.84 Long term (current) use of oral hypoglycemic drugs; Z79.899 Other long term (current) drug therapy; Z88.2 Allergy status to sulfonamides; Z91.012 Allergy to eggs; Z88.8 Allergy status to other drugs, medicaments and biological substances; Z96.641 Presence of right artificial hip joint; N32.81 Overactive bladder; Z53.8 Procedure and treatment not carried out for other reasons
CPT/HCPCS: 36415; 80053; 81001; 83735; 85025; 87086; 99284

== ENCOUNTER 2019-03-14 16:17 | Emergency (ER) | payer MEDICARE, BC ==
[2019-03-14] MEDS ORDERED: ONDANSETRON ODT 4 MG TAB PO STA (18:28)
[2019-03-14 19:14] VITALS: BP 153/88; PULSE 61; RESP 16; TEMP 98.2
[2019-03-14 19:22] LABS: Basophils % (A) 0 %; Eosinophils # (A) 0.1 k/uL (0-0.7); Eosinophils % (A) 2 %; HCT 33.5 % (34.0-46.0); HGB 11.4 gm/dL (11.4-16.0); Lymphocytes # (A) 1.3 k/uL (1.0-4.8); Lymphocytes % (A) 23 %; MCH 29.2 pg (25.0-35.0); Mean Platelet Volume 7.4; Monocytes # (A) 0.5 k/uL (0-1.0); Monocytes % (A) 9 %; Neutrophils # (A) 3.7 k/uL (1.3-7.7); Neutrophils % (A) 63 %; Platelet Count 201 k/uL (150-450); RDW 14.2 % (11.5-15.5); WBC 5.8 k/uL (3.8-10.6)
[2019-03-14 19:43] LABS: ALT 18 U/L (9-52); AST 18 U/L (14-36); African American GFR (CKD) >90 (>60 ml/min/1.73 sqM); Albumin 3.5 g/dL (3.5-5.0); Alkaline Phosphatase 100 U/L (38-126); Anion Gap 10 mmol/L; Blood Urea Nitrogen 16 mg/dL (7-17); Calcium 9.3 mg/dL (8.4-10.2); Carbon Dioxide 23 mmol/L (22-30); Chloride 106 mmol/L (98-107); Glucose 138 mg/dL (74-99); Potassium 3.9 mmol/L (3.5-5.1); Sodium 139 mmol/L (137-145); Total Bilirubin 0.3 mg/dL (0.2-1.3); Total Protein 6.2 g/dL (6.3-8.2)
[2019-03-14 19:47] LABS: Appearance,Urine Turbid (Clear); Bilirubin,Urine Negative (Negative); Blood,Urine Small (Negative); Budding Yeast,Urine Occasional /hpf; Color,Urine Yellow; Glucose,Urine (UA) Negative (Negative); Ketones,Urine Negative (Negative); Leukocyte Esterase,Urine Large (Negative); Nitrite,Urine Positive (Negative); PH, Urine 6.5 (5.0-8.0); Protein,Urine Trace (Negative); Specific Gravity,Urine 1.016 (1.001-1.035); Squamous Epithelial Cell,Urine 1 /hpf (0-4); Urobilinogen,Urine <2.0 mg/dL (<2.0)
--- NOTE | 2019-03-14 20:23 | ED ---
Female Urogenital HPI - General Chief complaint: Urogenital Stated complaint: abdominal pain Time Seen by Provider: 03/14/19 17:49 Source: patient, family Mode of arrival: ambulatory Limitations: no limitations - History of Present Illness Initial comments: Patient is a 74-year-old female who presents emergency Department with report that she thinks she has a urinary tract infection. The patient has a history of frequent urinary tract infections. States that she was recently prescribed an antibiotic at the end of january for a UTI however she does not think that it worked. States she was also placed on a medication for a yeast infection. One of the medications upset her stomach as she has been having morning nausea without vomiting. She is not sure which of the medications made her feel this way. She denies any additional medication changes. She does admit to dysuria and increased frequency. Denies hematuria. Denies any changes in her bowel movements to include diarrhea, constipation, melanotic stools or hematochezia. No vaginal bleeding or discharge. The denies that the patient has had any altered mental status, fevers or chills. She denies any abdominal pain or pelvic pain. No chest pain or shortness of breath. Denies any additional symptoms to include headache, neck pain, flank pain, weakness, presyncope. There are no other alleviating, precipitating or modifying factors - Related Data Home Medications Medication Instructions Recorded Confirmed Anastrozole [Arimidex] 1 mg PO DAILY 12/22/16 03/14/19 Tolterodine Tartrate [Detrol LA] 4 mg PO HS 07/21/17 03/14/19 Melatonin 3 mg PO HS 10/13/17 03/14/19 Empagliflozin [Jardiance] 10 mg PO DAILY 03/03/18 03/14/19 Cholecalciferol [Vitamin D3 (25 1,000 unit PO DAILY 06/05/18 03/14/19 Mcg = 1000 Iu)] Cyanocobalamin (Vitamin B-12) 1,000 mcg PO DAILY 06/05/18 03/14/19 [Vitamin B-12] Multivitamins, Thera [Multivitamin 1 tab PO DAILY 06/05/18 03/14/19 (formulary)] Ubidecarenone [Co Q-10] 100 mg PO DAILY 06/05/18 03/14/19 busPIRone HCl [Buspar] 10 mg PO HS 06/05/18 03/14/19 metFORMIN HCL [Glucophage] 500 mg PO BID 06/06/18 03/14/19 Acetaminophen Tab [Tylenol] 650 mg PO Q6H PRN 07/31/18 03/14/19 levETIRAcetam [Keppra] 1,000 mg PO Q12HR 07/31/18 03/14/19 busPIRone HCl [Buspar] 5 mg PO DAILY 08/13/18 03/14/19 Atorvastatin Calcium [Lipitor] 10 mg PO HS 09/05/18 03/14/19 risperiDONE [RisperDAL] 1 mg PO HS 09/05/18 03/14/19 Omeprazole 20 mg PO DAILY 10/15/18 03/14/19 Carvedilol 25 mg PO BID 12/26/18 03/14/19 Cranberry Fruit Concentrate [Azo 250 mg PO DAILY 12/26/18 03/14/19 Cranberry] Previous Rx's Medication Instructions Recorded Aspirin 81 mg PO DAILY chew 07/23/17 Cephalexin [Keflex] 500 mg PO Q6HR #28 cap 03/14/19 Fluconazole [Diflucan] 150 mg PO ONCE #2 tab 03/14/19 Ondansetron Odt [Zofran Odt] 4 mg PO Q8HR PRN #10 tab 03/14/19 Allergies Allergy/AdvReac Type Severity Reaction Status Date / Time Sulfa (Sulfonamide Allergy Unknown Unknown Verified 03/14/19 18:36 Antibiotics) egg AdvReac Diarrhea Verified 03/14/19 18:36 solifenacin [From Vesicare] AdvReac Confusion/s Verified 03/14/19 18:36 haking Review of Systems ROS Statement: Those systems with pertinent positive or pertinent negative responses have been documented in the HPI. ROS Other: All systems not noted in ROS Statement are negative. 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 History of Any Multi-Drug Resistant Organisms: CRE, MRSA Date of last positivie culture/infection: 08/13/18 MDRO Source:: urine. e coli,mrsa Past Surgical History: Hysterectomy Additional Past Surgical History / Comment(s): Total hysterectomy, right hip arthroplasty, laser surgery of the right eye of her bleeding, bladder suspension, right elbow metal plate , gamma knife procedure for meningoma lt side of brain 03-11-17 Past Anesthesia/Blood Transfusion Reactions: No Reported Reaction Past Psychological History: Anxiety, Bipolar, Depression Smoking Status: Former smoker Past Alcohol Use History: None Reported Past Drug Use History: None Reported - Past Family History Father Family Medical History: No Reported History Additional Family Medical History / Comment(s): Father is alive in his 80s and is a smoker. Patient does not know his medical history. Mother Family Medical History: No Reported History Additional Family Medical History / Comment(s): Mother at age 79 from Alzheimer's dementia. Sister(s) Family Medical History: Congestive Heart Failure (CHF) Additional Family Medical History / Comment(s): She has one sister that is from heart failure. Patient does not have any brothers. Patient has 2 daughters that are 45 and 42 years of age with no major medical problems. General Exam Limitations: no limitations General appearance: alert, in no apparent distress Head exam: Present: atraumatic, normocephalic, normal inspection Eye exam: Present: normal appearance, PERRL, EOMI. Absent: scleral icterus, conjunctival injection, periorbital swelling ENT exam: Present: normal exam, mucous membranes moist Neck exam: Present: normal inspection. Absent: tenderness, meningismus, lymphadenopathy Respiratory exam: Present: normal lung sounds bilaterally. Absent: respiratory distress, wheezes, rales, rhonchi, stridor Cardiovascular Exam: Present: regular rate, normal rhythm, normal heart sounds. Absent: systolic murmur, diastolic murmur, rubs, gallop, clicks GI/Abdominal exam: Present: soft, normal bowel sounds. Absent: distended, tenderness, guarding, rebound, rigid Extremities exam: Present: normal inspection, full ROM, normal capillary refill. Absent: tenderness, pedal edema, joint swelling, calf tenderness Back exam: Present: normal inspection Neurological exam: Present: alert, oriented X3, CN II-XII intact Psychiatric exam: Present: normal affect, normal mood Skin exam: Present: warm, dry, intact, normal color. Absent: rash Course Vital Signs 03/14/19 03/14/19 17:15 19:12 Temperature 97.5 F L 98.2 F Pulse Rate 72 61 Respiratory 18 16 Rate Blood Pressure 126/76 153/88 O2 Sat by Pulse 98 98 Oximetry Medical Decision Making - Medical Decision Making The patient was seen by myself. She was placed into room 5. I did recommend laboratory studies and an EKG due to the patients nausea. The patient did provide a urine. Upon return, the results are discussed with the patient. She denies any abdominal pain and she has no tenderness to palpation therefore abdominal imaging is not performed. I did recommend treating the patient with an antibiotic for persistent UTI. I did review the patient's urine cultures from the past which have demonstrated resistant bacteria. As the patient currently finished a course of Macrobid, I did switch her to Keflex. I also provided the patient with a prescription for Diflucan as she does have persistent budding yeast in her urine sample. I also provided her with a Zofran prescription that she may take if the antibiotics upset her stomach. I offered further workup for the patient's nausea however the patient refused. She is very adamant that she wanted leave at this time. Patient was attempting to leave without her paperwork however I did convince her to stay. The patient was given her discharge instructions. She needs to follow-up with her primary care physician in 2-4 days for reevaluation that her urine is clean of infection. She will also benefit seeing a urologist for her recurrent infections. The patient was in agreement treatment plan and she was discharged home in stable condition. - Differential Diagnosis dysuria, acute uti, nausea, cystitis, pyelonephritis, medication side effec - Lab Data Result diagrams: 03/14/19 18:39 03/14/19 18:39 Lab Results 03/14/19 03/14/19 03/14/19 Range/Units 18:03 18:39 18:39 WBC 5.8 (3.8-10.6) k/uL RBC 3.90 (3.80-5.40) m/uL Hgb 11.4 (11.4-16.0) gm/dL Hct 33.5 L (34.0-46.0) % MCV 86.0 (80.0-100.0) fL MCH 29.2 (25.0-35.0) pg MCHC 34.0 (31.0-37.0) g/dL RDW 14.2 (11.5-15.5) % Plt Count 201 (150-450) k/uL Neutrophils % 63 % Lymphocytes % 23 % Monocytes % 9 % Eosinophils % 2 % Basophils % 0 % Neutrophils # 3.7 (1.3-7.7) k/uL Lymphocytes # 1.3 (1.0-4.8) k/uL Monocytes # 0.5 (0-1.0) k/uL Eosinophils # 0.1 (0-0.7) k/uL Basophils # 0.0 (0-0.2) k/uL Sodium 139 (137-145) mmol/L Potassium 3.9 (3.5-5.1) mmol/L Chloride 106 (98-107) mmol/L Carbon Dioxide 23 (22-30) mmol/L Anion Gap 10 mmol/L BUN 16 (7-17) mg/dL Creatinine 0.51 L (0.52-1.04) mg/dL Est GFR (CKD-EPI)AfAm >90 (>60 ml/min/1.73 sqM) Est GFR (CKD-EPI)NonAf >90 (>60 ml/min/1.73 sqM) Glucose 138 H (74-99) mg/dL Calcium 9.3 (8.4-10.2) mg/dL Total Bilirubin 0.3 (0.2-1.3) mg/dL AST 18 (14-36) U/L ALT 18 (9-52) U/L Alkaline Phosphatase 100 (38-126) U/L Total Protein 6.2 L (6.3-8.2) g/dL Albumin 3.5 (3.5-5.0) g/dL Urine Color Yellow Urine Appearance Turbid H (Clear) Urine pH 6.5 (5.0-8.0) Ur Specific [place] 1.016 (1.001-1.035) Urine Protein Trace H (Negative) Urine Glucose (UA) Negative (Negative) Urine Ketones Negative (Negative) Urine Blood Small H (Negative) Urine Nitrite Positive H (Negative) Urine Bilirubin Negative (Negative) Urine Urobilinogen <2.0 (<2.0) mg/dL Ur Leukocyte Esterase Large H (Negative) Urine WBC >182 H (0-5) /hpf Ur Squamous Epith Cells 1 (0-4) /hpf Urine Yeast (Budding) Occasional H (None) /hpf - EKG Data EKG Comments: EKG demonstrates a normal sinus rhythm with a ventricular rate of 62. CT interval 170. QRS 82. QTc 412. No acute ST segment elevations or depressions concerning for ischemic changes. Disposition Clinical Impression: Urinary tract infection, Candidiasis of vagina, Nausea, Medication side effect Disposition: HOME SELF-CARE Condition: Stable Instructions (If sedation given, give patient instructions): Urinary Tract Infection in Women (ED) Additional Instructions: You must follow-up with your primary care doctor in 2-4 days. They need to repeat your urine sample to ensure your infection has gotten better. Return to the emergency room for any new or worsening symptoms Prescriptions: Fluconazole [Diflucan] 150 mg PO ONCE #2 tab Cephalexin [Keflex] 500 mg PO Q6HR #28 cap Ondansetron Odt [Zofran Odt] 4 mg PO Q8HR PRN #10 tab PRN Reason: Nausea Is patient prescribed a controlled substance at d/c from ED?: No Referrals: Mani Hunt DO [Primary Care Provider] - 1-2 days Time of Disposition: 20:23
== END 2019-03-14 20:42 | disposition home or self-care (01) ==
LOC: EC 16:17
DX: N39.0 Urinary tract infection, site not specified (principal); B37.3 Candidiasis of vulva and vagina; R11.0 Nausea; T50.905A Adverse effect of unspecified drugs, medicaments and biological substances, initial encounter; E11.9 Type 2 diabetes mellitus without complications; K21.9 Gastro-esophageal reflux disease without esophagitis; E78.5 Hyperlipidemia, unspecified; I10 Essential (primary) hypertension; G40.909 Epilepsy, unspecified, not intractable, without status epilepticus; F41.9 Anxiety disorder, unspecified; F32.9 Major depressive disorder, single episode, unspecified; Z85.3 Personal history of malignant neoplasm of breast; Z86.73 Personal history of transient ischemic attack (TIA), and cerebral infarction without residual deficits; Z86.14 Personal history of Methicillin resistant Staphylococcus aureus infection; Z90.710 Acquired absence of both cervix and uterus; Z96.641 Presence of right artificial hip joint; Z87.891 Personal history of nicotine dependence; Z79.84 Long term (current) use of oral hypoglycemic drugs; Z79.899 Other long term (current) drug therapy; Z88.2 Allergy status to sulfonamides; Z91.012 Allergy to eggs; Z88.8 Allergy status to other drugs, medicaments and biological substances; Z53.29 Procedure and treatment not carried out because of patient's decision for other reasons
CPT/HCPCS: 36415; 80053; 81001; 85025; 87077; 87086; 87186; 93005; 99284

== ENCOUNTER 2019-04-21 15:33 | Emergency (ER) | payer MEDICARE, BC ==
[2019-04-21 15:39] VITALS: BP 138/75; PULSE 68; RESP 18
[2019-04-21] MEDS ORDERED: SODIUM CHLORIDE 0.9% 1,000 ML IV STA (16:05)
--- NOTE | 2019-04-21 16:13 | ED ---
Dizziness HPI - General Chief Complaint: Dizziness Stated Complaint: dizziness Time Seen by Provider: 04/21/19 15:47 Source: patient, family Mode of arrival: ambulatory Limitations: no limitations - History of Present Illness Initial Comments: Patient is a 74-year-old female presenting to the emergency Department with complaints of lightheadedness 2-3 days. Patient states when she wakes up in the morning is when she feels the worst but then it can also happen throughout different times during the day. Patient is denying pain anywhere, nausea, vom iting, fever. Patient does admit to having chills throughout the day. Patient also states that both her feet are numb at this time. Patient is denying any urinary complaints but does have a history of UTIs. Patient has past medical history of CVA, DM, GERD, hyperlipidemia, hypertension. No other complaints at this time. - Related Data Home Medications Medication Instructions Recorded Confirmed Anastrozole [Arimidex] 1 mg PO DAILY 12/22/16 03/14/19 Tolterodine Tartrate [Detrol LA] 4 mg PO HS 07/21/17 03/14/19 Melatonin 3 mg PO HS 10/13/17 03/14/19 Empagliflozin [Jardiance] 10 mg PO DAILY 03/03/18 03/14/19 Cholecalciferol [Vitamin D3 (25 1,000 unit PO DAILY 06/05/18 03/14/19 Mcg = 1000 Iu)] Cyanocobalamin (Vitamin B-12) 1,000 mcg PO DAILY 06/05/18 03/14/19 [Vitamin B-12] Multivitamins, Thera [Multivitamin 1 tab PO DAILY 06/05/18 03/14/19 (formulary)] Ubidecarenone [Co Q-10] 100 mg PO DAILY 06/05/18 03/14/19 busPIRone HCl [Buspar] 10 mg PO HS 06/05/18 03/14/19 metFORMIN HCL [Glucophage] 500 mg PO BID 06/06/18 03/14/19 Acetaminophen Tab [Tylenol] 650 mg PO Q6H PRN 07/31/18 03/14/19 levETIRAcetam [Keppra] 1,000 mg PO Q12HR 07/31/18 03/14/19 busPIRone HCl [Buspar] 5 mg PO DAILY 08/13/18 03/14/19 Atorvastatin Calcium [Lipitor] 10 mg PO HS 09/05/18 03/14/19 risperiDONE [RisperDAL] 1 mg PO HS 09/05/18 03/14/19 Omeprazole 20 mg PO DAILY 10/15/18 03/14/19 Carvedilol 25 mg PO BID 12/26/18 03/14/19 Cranberry Fruit Concentrate [Azo 250 mg PO DAILY 12/26/18 03/14/19 Cranberry] Previous Rx's Medication Instructions Recorded Aspirin 81 mg PO DAILY chew 07/23/17 Cephalexin [Keflex] 500 mg PO Q6HR #28 cap 03/14/19 Fluconazole [Diflucan] 150 mg PO ONCE #2 tab 03/14/19 Ondansetron Odt [Zofran Odt] 4 mg PO Q8HR PRN #10 tab 03/14/19 Fluconazole [Diflucan] 150 mg PO ONCE #1 tab 04/21/19 Nitrofurantoin Monohyd/M-Cryst 100 mg PO Q12HR 5 Days #10 cap 04/21/19 [Macrobid] Allergies Allergy/AdvReac Type Severity Reaction Status Date / Time Sulfa (Sulfonamide Allergy Unknown Unknown Verified 04/21/19 15:39 Antibiotics) egg AdvReac Diarrhea Verified 04/21/19 15:39 solifenacin [From [facility]ic[facility]] AdvReac Confusion/s Verified 04/21/19 15:39 haking Review of Systems ROS Statement: Those systems with pertinent positive or pertinent negative responses have been documented in the HPI. ROS Other: All systems not noted in ROS Statement are negative. 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 History of Any Multi-Drug Resistant Organisms: CRE, MRSA Date of last positivie culture/infection: 08/13/18 MDRO Source:: urine. e coli,mrsa Past Surgical History: Hysterectomy Additional Past Surgical History / Comment(s): Total hysterectomy, right hip arthroplasty, laser surgery of the right eye of her bleeding, bladder suspensio n, right elbow metal plate , gamma knife procedure for meningoma lt side of brain 03-11-17 Past Anesthesia/Blood Transfusion Reactions: No Reported Reaction Past Psychological History: Anxiety, Bipolar, Depression Smoking Status: Former smoker Past Alcohol Use History: None Reported Past Drug Use History: None Reported - Past Family History Father Family Medical History: No Reported History Additional Family Medical History / Comment(s): Father is alive in his 80s and is a smoker. Patient does not know his medical history. Mother Family Medical History: No Reported History Additional Family Medical History / Comment(s): Mother at age 79 from Alzheimer's dementia. Sister(s) Family Medical History: Congestive Heart Failure (CHF) Additional Family Medical History / Comment(s): She has one sister that is from heart failure. Patient does not have any brothers. Patient has 2 daughters that are 45 and 42 years of age with no major medical problems. General Exam - General Exam Comments Initial Comments: GENERAL: Well-appearing, well-nourished and in no acute distress. HEAD: Atraumatic, normocephalic. EYES: Pupils equal round and reactive to light, extraocular movements intact, sclera anicteric, conjunctiva are normal. ENT: TMs normal, nares patent, oropharynx clear without exudates. Moist mucous membranes. NECK: Normal range of motion, supple without lymphadenopathy or JVD. LUNGS: Breath sounds clear to auscultation bilaterally and equal. No wheezes rales or rhonchi. HEART: Regular rate and rhythm without murmurs, rubs or gallops. ABDOMEN: Soft, nontender, normoactive bowel sounds. No guarding, no rebound. No masses appreciated. : Deferred EXTREMITIES: Normal range of motion, no pitting or edema. No clubbing or cyanosis. Patient has 5 out of 5 strength upper and lower extremities. Patient has equal, bilateral sensation of lower extremities. Neurovascular intact. NEUROLOGICAL: Cranial nerves II through XII grossly intact. Normal speech, normal gait. PSYCH: Normal mood, normal affect. SKIN: Warm, Dry, normal turgor, no rashes or lesions noted. Limitations: no limitations Course Vital Signs 04/21/19 04/21/19 04/21/19 15:37 17:22 17:52 Temperature 98.6 F 97.6 F 97.6 F Pulse Rate 68 68 Respiratory 18 18 Rate Blood Pressure 138/75 138/75 O2 Sat by Pulse 98 98 Oximetry EKG Findings - EKG Comments: EKG Findings:: Ventricular rate 59, NC interval 168, QTC 417. Sinus bradycardia. No ST segment changes. No T-wave inversions. Medical Decision Making - Medical Decision Making Patient is a 74-year-old female presenting with lightheadedness 2-3 days. Patient also complains of increased fatigue. Patient denies any fever, chills, abdominal pain, nausea, vomiting. Patient's exam is unremarkable. Vital signs are stable, afebrile. CBC, CMP are within normal limits. UA shows 4+ glucose, greater than 182 WBCs, moderate yeast. Patient has history of UTIs that are resistant. Recent urine cultures were reviewed. Patient will be started on Macrobid and Diflucan. Urine culture will be sent. Patient is stable for disch arge and patient is agreement with this plan. Return parameters were discussed with the patient and she verbalized understanding. Case discussed with Dr. Shin. - Lab Data Result diagrams: 04/21/19 16:33 04/21/19 16:33 Lab Results 04/21/19 04/21/19 04/21/19 Range/Units 16:33 16:33 16:45 WBC 5.7 (3.8-10.6) k/uL RBC 3.94 (3.80-5.40) m/uL Hgb 11.7 (11.4-16.0) gm/dL Hct 34.6 (34.0-46.0) % MCV 88.0 (80.0-100.0) fL MCH 29.7 (25.0-35.0) pg MCHC 33.8 (31.0-37.0) g/dL RDW 14.7 (11.5-15.5) % Plt Count 200 (150-450) k/uL Neutrophils % 62 % Lymphocytes % 26 % Monocytes % 6 % Eosinophils % 3 % Basophils % 1 % Neutrophils # 3.5 (1.3-7.7) k/uL Lymphocytes # 1.5 (1.0-4.8) k/uL Monocytes # 0.3 (0-1.0) k/uL Eosinophils # 0.1 (0-0.7) k/uL Basophils # 0.0 (0-0.2) k/uL Sodium 140 (137-145) mmol/L Potassium 3.8 (3.5-5.1) mmol/L Chloride 107 (98-107) mmol/L Carbon Dioxide 23 (22-30) mmol/L Anion Gap 10 mmol/L BUN 12 (7-17) mg/dL Creatinine 0.46 L (0.52-1.04) mg/dL Est GFR (CKD-EPI)AfAm >90 (>60 ml/min/1.73 sqM) Est GFR (CKD-EPI)NonAf >90 (>60 ml/min/1.73 sqM) Glucose 179 H (74-99) mg/dL Calcium 9.6 (8.4-10.2) mg/dL Total Bilirubin 0.2 (0.2-1.3) mg/dL AST 19 (14-36) U/L ALT 17 (9-52) U/L Alkaline Phosphatase 87 (38-126) U/L Total Protein 6.5 (6.3-8.2) g/dL Albumin 3.8 (3.5-5.0) g/dL Urine Color Yellow Urine Appearance Cloudy H (Clear) Urine pH 5.5 (5.0-8.0) Ur Specific [place] 1.007 (1.001-1.035) Urine Protein Negative (Negative) Urine Glucose (UA) 4+ H (Negative) Urine Ketones Negative (Negative) Urine Blood Trace H (Negative) Urine Nitrite Negative (Negative) Urine Bilirubin Negative (Negative) Urine Urobilinogen <2.0 (<2.0) mg/dL Ur Leukocyte Esterase Large H (Negative) Urine RBC 6 H (0-5) /hpf Urine WBC >182 H (0-5) /hpf Urine WBC Clumps Many H (None) /hpf Ur Squamous Epith Cells 1 (0-4) /hpf Urine Bacteria Rare H (None) /hpf Urine Mucus Rare H (None) /hpf Urine Yeast (Budding) Moderate H (None) /hpf Disposition Clinical Impression: Light headedness, UTI (urinary tract infection) Disposition: HOME SELF-CARE Instructions (If sedation given, give patient instructions): Urinary Tract Infection in Older Adults (ED) Additional Instructions: Please return to the Emergency Department if symptoms worsen or any other concerns. Prescriptions: Fluconazole [Diflucan] 150 mg PO ONCE #1 tab Nitrofurantoin Monohyd/M-Cryst [Macrobid] 100 mg PO Q12HR 5 Days #10 cap Is patient prescribed a controlled substance at d/c from ED?: No Referrals: Mani Hunt DO [Primary Care Provider] - 1-2 days
[2019-04-21 16:46] LABS: Basophils % (A) 1 %; Eosinophils # (A) 0.1 k/uL (0-0.7); Eosinophils % (A) 3 %; HCT 34.6 % (34.0-46.0); HGB 11.7 gm/dL (11.4-16.0); Lymphocytes # (A) 1.5 k/uL (1.0-4.8); Lymphocytes % (A) 26 %; MCH 29.7 pg (25.0-35.0); MCHC 33.8 g/dL (31.0-37.0); Mean Platelet Volume 7.4; Monocytes # (A) 0.3 k/uL (0-1.0); Monocytes % (A) 6 %; Neutrophils # (A) 3.5 k/uL (1.3-7.7); Neutrophils % (A) 62 %; Platelet Count 200 k/uL (150-450); RBC 3.94 m/uL (3.80-5.40); RDW 14.7 % (11.5-15.5); WBC 5.7 k/uL (3.8-10.6)
[2019-04-21 16:59] LABS: ALT 17 U/L (9-52); AST 19 U/L (14-36); African American GFR (CKD) >90 (>60 ml/min/1.73 sqM); Albumin 3.8 g/dL (3.5-5.0); Alkaline Phosphatase 87 U/L (38-126); Anion Gap 10 mmol/L; Blood Urea Nitrogen 12 mg/dL (7-17); Calcium 9.6 mg/dL (8.4-10.2); Carbon Dioxide 23 mmol/L (22-30); Chloride 107 mmol/L (98-107); Glucose 179 mg/dL (74-99); Non-African American GFR(CKD) >90 (>60 ml/min/1.73 sqM); Potassium 3.8 mmol/L (3.5-5.1); Sodium 140 mmol/L (137-145); Total Bilirubin 0.2 mg/dL (0.2-1.3); Total Protein 6.5 g/dL (6.3-8.2)
[2019-04-21 17:11] LABS: Appearance,Urine Cloudy (Clear); Bacteria,Urine Rare /hpf; Bilirubin,Urine Negative (Negative); Blood,Urine Trace (Negative); Budding Yeast,Urine Moderate /hpf; Color,Urine Yellow; Glucose,Urine (UA) 4+ (Negative); Ketones,Urine Negative (Negative); Leukocyte Esterase,Urine Large (Negative); Mucus,Urine Rare /hpf; Nitrite,Urine Negative (Negative); PH, Urine 5.5 (5.0-8.0); Protein,Urine Negative (Negative); RBC,Urine 6 /hpf (0-5); Specific Gravity,Urine 1.007 (1.001-1.035); Squamous Epithelial Cell,Urine 1 /hpf (0-4); Urobilinogen,Urine <2.0 mg/dL (<2.0); WBC,Urine >182 /hpf (0-5)
[2019-04-21 17:23] VITALS: TEMP 97.6
== END 2019-04-21 17:52 | disposition home or self-care (01) ==
LOC: EC 15:33
DX: R42 Dizziness and giddiness (principal); N39.0 Urinary tract infection, site not specified; R20.0 Anesthesia of skin; R53.83 Other fatigue; E11.9 Type 2 diabetes mellitus without complications; K21.9 Gastro-esophageal reflux disease without esophagitis; E78.5 Hyperlipidemia, unspecified; I10 Essential (primary) hypertension; G40.909 Epilepsy, unspecified, not intractable, without status epilepticus; F41.9 Anxiety disorder, unspecified; F32.9 Major depressive disorder, single episode, unspecified; Z87.891 Personal history of nicotine dependence; Z90.710 Acquired absence of both cervix and uterus; Z86.14 Personal history of Methicillin resistant Staphylococcus aureus infection; Z96.641 Presence of right artificial hip joint; Z85.3 Personal history of malignant neoplasm of breast; Z86.73 Personal history of transient ischemic attack (TIA), and cerebral infarction without residual deficits; Z79.84 Long term (current) use of oral hypoglycemic drugs; Z79.899 Other long term (current) drug therapy; Z88.2 Allergy status to sulfonamides; Z91.012 Allergy to eggs; Z88.8 Allergy status to other drugs, medicaments and biological substances
CPT/HCPCS: 36415; 80053; 81001; 85025; 87086; 93005; 96360; 99284

== ENCOUNTER 2019-06-02 18:19 | Emergency (ER) | payer MEDICARE, BC ==
[2019-06-02 18:32] VITALS: RESP 18
--- NOTE | 2019-06-02 18:47 | ED ---
Female Urogenital HPI <Eduin Parish - Last Filed: 06/02/19 20:18> - General Source: patient Mode of arrival: ambulatory Limitations: no limitations <Lesli Ramos - Last Filed: 06/02/19 22:09> - General Chief complaint: Urogenital Stated complaint: weakness Time Seen by Provider: 06/02/19 18:37 - History of Present Illness Initial comments: 74-year-old female patient presents to the emergency department today for evaluation of urinary frequency and urgency. Patient does have history of overa ctive bladder and has been to multiple urologists. She has tried several medications. Patient states that things seemed to worsen over the last week. She denies any dysuria or hematuria. She denies any nausea, vomiting, or flank pain. Denies fever or chills. States she is eating well. Able to ambulate without difficulty. Patient denies any recent rash, shortness breath, chest pain, abdominal pain, diarrhea, constipation, back pain, numbness, tingling, dizziness, weakness, headache, visual changes, or any other complaints. (Lesli Ramos) - Related Data Home Medications Medication Instructions Recorded Confirmed Anastrozole [Arimidex] 1 mg PO DAILY 12/22/16 06/02/19 Tolterodine Tartrate [Detrol LA] 4 mg PO HS 07/21/17 06/02/19 Melatonin 3 mg PO HS 10/13/17 06/02/19 Empagliflozin [Jardiance] 10 mg PO DAILY 03/03/18 06/02/19 Cholecalciferol [Vitamin D3 (25 1,000 unit PO DAILY 06/05/18 06/02/19 Mcg = 1000 Iu)] Cyanocobalamin (Vitamin B-12) 1,000 mcg PO DAILY 06/05/18 06/02/19 [Vitamin B-12] Multivitamins, Thera [Multivitamin 1 tab PO DAILY 06/05/18 06/02/19 (formulary)] Ubidecarenone [Co Q-10] 100 mg PO DAILY 06/05/18 06/02/19 busPIRone HCl [Buspar] 10 mg PO HS 06/05/18 06/02/19 metFORMIN HCL [Glucophage] 500 mg PO BID 06/06/18 06/02/19 Acetaminophen Tab [Tylenol] 650 mg PO Q6H PRN 07/31/18 06/02/19 levETIRAcetam [Keppra] 1,000 mg PO Q12HR 07/31/18 06/02/19 busPIRone HCl [Buspar] 5 mg PO DAILY 08/13/18 06/02/19 Atorvastatin Calcium [Lipitor] 10 mg PO HS 09/05/18 06/02/19 risperiDONE [RisperDAL] 1 mg PO HS 09/05/18 06/02/19 Omeprazole 20 mg PO DAILY 10/15/18 06/02/19 Carvedilol 25 mg PO BID 12/26/18 06/02/19 Cranberry Fruit Concentrate [Azo 250 mg PO DAILY 12/26/18 06/02/19 Cranberry] Previous Rx's Medication Instructions Recorded Aspirin 81 mg PO DAILY chew 07/23/17 Ondansetron Odt [Zofran Odt] 4 mg PO Q8HR PRN #10 tab 03/14/19 Cephalexin [Keflex] 500 mg PO Q6HR #40 cap 06/02/19 Allergies Allergy/AdvReac Type Severity Reaction Status Date / Time Sulfa (Sulfonamide Allergy Unknown Unknown Verified 06/02/19 18:41 Antibiotics) egg AdvReac Diarrhea Verified 06/02/19 18:41 solifenacin [From Vesicare] AdvReac Confusion/s Verified 06/02/19 18:41 lindsey Review of Systems ROS Other: All systems not noted in ROS Statement are negative. <Eduin Parish - Last Filed: 06/02/19 20:18> ROS Other: All systems not noted in ROS Statement are negative. <Lesli Ramos - Last Filed: 06/02/19 22:09> ROS Statement: Those systems with pertinent positive or pertinent negative responses have been documented in the HPI. Past Medical History Past Medical History: Cancer, CVA/TIA, Diabetes Mellitus, GERD/Reflux, Hyperlipidemia, Hypertension, Seizure Disorder Additional Past Medical History / Comment(s): Intracranial bleed July 2015, overactive bladder, multi UTI- ecoli, Breast cancer,meningoma lt side of brain - had gamma knife procedure march 11 2017, RT bx,lumpectomy, lymph node removal." had seizure like symptoms on several ocassions but never got a clear answer if i t was". History of Any Multi-Drug Resistant Organisms: CRE, MRSA Date of last positivie culture/infection: 08/13/18 MDRO Source:: urine. e coli,mrsa Past Surgical History: Hysterectomy Additional Past Surgical History / Comment(s): Total hysterectomy, right hip arthroplasty, laser surgery of the right eye of her bleeding, bladder suspension, right elbow metal plate , gamma knife procedure for meningoma lt side of brain 03-11-17 Past Anesthesia/Blood Transfusion Reactions: No Reported Reaction Past Psychological History: Anxiety, Bipolar, Depression Smoking Status: Former smoker Past Alcohol Use History: None Reported Past Drug Use History: None Reported - Past Family History Father Family Medical History: No Reported History Additional Family Medical History / Comment(s): Father is alive in his 80s and is a smoker. Patient does not know his medical history. Mother Family Medical History: No Reported History Additional Family Medical History / Comment(s): Mother at age 79 from Alzheimer's dementia. Sister(s) Family Medical History: Congestive Heart Failure (CHF) Additional Family Medical History / Comment(s): She has one sister that is from heart failure. Patient does not have any brothers. Patient has 2 daughters that are 45 and 42 years of age with no major medical problems. <KeelygeovanniLesli M - Last Filed: 06/02/19 22:09> General Exam Limitations: no limitations General appearance: alert, in no apparent distress, other (This is a well- developed, well-nourished elderly female patient in no acute distress. Vital signs upon presentation are temperature 100.8F, pulse 76, respirations 18, blood pressure 145/84) Eye exam: Present: normal appearance, PERRL, EOMI. Absent: scleral icterus, conjunctival injection, periorbital swelling ENT exam: Present: normal exam, normal oropharynx, mucous membranes moist Respiratory exam: Present: normal lung sounds bilaterally. Absent: respiratory distress, wheezes, rales, rhonchi, stridor Cardiovascular Exam: Present: regular rate, normal rhythm, normal heart sounds. Absent: systolic murmur, diastolic murmur, rubs, gallop, clicks GI/Abdominal exam: Present: soft, normal bowel sounds. Absent: distended, tenderness, guarding, rebound, rigid Back exam: Absent: CVA tenderness (R), CVA tenderness (L) Neurological exam: Present: alert, oriented X3, CN II-XII intact Psychiatric exam: Present: normal affect, normal mood Skin exam: Present: warm, dry, intact, normal color. Absent: rash <Lesli Ramos - Last Filed: 06/02/19 22:09> Course <Eduin Parish - Last Filed: 06/02/19 20:18> Vital Signs 06/02/19 06/02/19 06/02/19 18:29 19:45 20:38 Temperature 100.8 F H 97.8 F 97.8 F Pulse Rate 76 98 98 Respiratory 18 18 18 Rate Blood Pressure 145/84 133/72 133/72 O2 Sat by Pulse 98 98 Oximetry - Reevaluation(s) Reevaluation #1: 06/02/19 20:18 N P supervision: I personally evaluate this case and do agree with the assessment and plan the patient does present with complaints consistent with UTI. Urine does demonstrate evidence of the same. I do agree with the treatment. (Eduin Parish) Medical Decision Making <Lesli Ramos - Last Filed: 06/02/19 22:09> - Medical Decision Making 74-year-old female patient presented to the emergency department today for evaluation of urinary frequency. Patient states for the last week she's had an increase in urinary frequency. States that she feels like she is unable to leave the bathroom. States she has had some episodes of incontinence. Urinalysis was obtained and showed a cloudy appearance with 4+ glucose, large leukocyte esterase, 156 white blood cells, many bacteria, and rare mucous. Blood glucose was performed and showed a level of 128. He was sent for culture. She'll be started on antibiotics. She is instructed to follow-up with her primary care physician for recheck in 1-2 days. Return parameters were discussed in detail. She verbalizes understanding and agrees with this plan. Case was discussed with my attending physician Dr. Parish, they were in agreement with my impression and plan. (Lesli Ramos) - Lab Data Lab Results 06/02/19 06/02/19 Range/Units 19:31 20:09 POC Glucose (mg/dL) 128 H (75-99) mg/dL POC Glu [employer]visor [employer] ID Dalila Durant Urine Color Light Yellow Urine Appearance Cloudy H (Clear) Urine pH 5.0 (5.0-8.0) Ur Specific [place] 1.015 (1.001-1.035) Urine Protein Negative (Negative) Urine Glucose (UA) 4+ H (Negative) Urine Ketones Negative (Negative) Urine Blood Negative (Negative) Urine Nitrite Negative (Negative) Urine Bilirubin Negative (Negative) Urine Urobilinogen <2.0 (<2.0) mg/dL Ur Leukocyte Esterase Large H (Negative) Urine RBC 1 (0-5) /hpf Urine WBC 156 H (0-5) /hpf Ur Squamous Epith Cells <1 (0-4) /hpf Urine Bacteria Many H (None) /hpf Urine Mucus Rare H (None) /hpf Disposition <Eduin Parish - Last Filed: 06/02/19 20:18> Is patient prescribed a controlled substance at d/c from ED?: No Time of Disposition: 20:22 <Lesli Ramos - Last Filed: 06/02/19 22:09> Clinical Impression: Urinary tract infection Disposition: HOME SELF-CARE Condition: Good Instructions (If sedation given, give patient instructions): Urinary Tract Infection in Women (ED) Additional Instructions: Increase fluids. Complete antibiotic prescription and full. Follow-up through primary care physician for recheck in 1-2 days. Have repeat urinalysis performed without antibiotics are completed to ensure clearance of infection. Return to the emergency department immediately for any new, worsening, or concerning symptoms. Prescriptions: Cephalexin [Keflex] 500 mg PO Q6HR #40 cap Referrals: Mani Hunt DO [Primary Care Provider] - 1-2 days
[2019-06-02 19:43] LABS: Appearance,Urine Cloudy (Clear); Bacteria,Urine Many /hpf; Bilirubin,Urine Negative (Negative); Blood,Urine Negative (Negative); Color,Urine Light Yellow; Glucose,Urine (UA) 4+ (Negative); Ketones,Urine Negative (Negative); Leukocyte Esterase,Urine Large (Negative); Mucus,Urine Rare /hpf; Nitrite,Urine Negative (Negative); Protein,Urine Negative (Negative); RBC,Urine 1 /hpf (0-5); Specific Gravity,Urine 1.015 (1.001-1.035); Squamous Epithelial Cell,Urine <1 /hpf (0-4); Urobilinogen,Urine <2.0 mg/dL (<2.0); WBC,Urine 156 /hpf (0-5)
[2019-06-02 19:46] VITALS: BP 133/72; PULSE 98; TEMP 97.8
[2019-06-02 20:10] LABS: Glucose,Whole Blood 128 mg/dL (75-99)
[2019-06-02] MEDS ORDERED: CEPHALEXIN 500MG STARTER PACK 4 CAP BTL PO STA (20:20)
== END 2019-06-02 20:36 | disposition home or self-care (01) ==
LOC: EC 18:19
DX: N39.0 Urinary tract infection, site not specified (principal); N32.81 Overactive bladder; E11.9 Type 2 diabetes mellitus without complications; K21.9 Gastro-esophageal reflux disease without esophagitis; E78.5 Hyperlipidemia, unspecified; I10 Essential (primary) hypertension; G40.909 Epilepsy, unspecified, not intractable, without status epilepticus; F41.9 Anxiety disorder, unspecified; F31.9 Bipolar disorder, unspecified; Z79.84 Long term (current) use of oral hypoglycemic drugs; Z79.899 Other long term (current) drug therapy; Z88.2 Allergy status to sulfonamides; Z91.012 Allergy to eggs; Z88.1 Allergy status to other antibiotic agents; Z85.3 Personal history of malignant neoplasm of breast; Z87.891 Personal history of nicotine dependence; Z90.710 Acquired absence of both cervix and uterus; Z96.641 Presence of right artificial hip joint; Z86.14 Personal history of Methicillin resistant Staphylococcus aureus infection; Z86.73 Personal history of transient ischemic attack (TIA), and cerebral infarction without residual deficits
CPT/HCPCS: 36415; 81001; 87086; 99283

== ENCOUNTER 2019-06-04 16:33 | Observation (INO) | payer MEDICARE, BC ==
[2019-06-04] MEDS ORDERED: SODIUM CHLORIDE 0.9% 1,000 ML IV ONE ×2 (17:17→18:53)
--- NOTE | 2019-06-04 17:32 | ED ---
Altered Mental Status HPI - General Chief Complaint: Altered Mental Status Stated Complaint: Weakness Time Seen by Provider: 06/04/19 17:01 Source: patient, family Mode of arrival: ambulatory Limitations: no limitations - History of Present Illness Initial Comments: This is a 89-year-old female the ER for evaluation patient resents a for evaluation regarding altered mental status patient doesn't feel "clear" which is probably thought processes thinking straight. Patient is unable to think clearly. His waking up this way for the past few days. She does have prior ER visit patient cannot recount the events of the visit states that she is co nfused but is unable to explain her confusion. Patient's also having difficulty sleeping symptoms MD Complaint: altered mental status, confusion, weakness Severity: mild Consistency of Symptoms: waxing and waning, getting worse Context: history of similar presentation Associated Symptoms: denies other symptoms - Related Data Home Medications Medication Instructions Recorded Confirmed Anastrozole [Arimidex] 1 mg PO DAILY 12/22/16 06/04/19 Tolterodine Tartrate [Detrol LA] 4 mg PO HS 07/21/17 06/04/19 Melatonin 3 mg PO HS 10/13/17 06/04/19 Empagliflozin [Jardiance] 10 mg PO DAILY 03/03/18 06/04/19 Cholecalciferol [Vitamin D3 (25 1,000 unit PO DAILY 06/05/18 06/04/19 Mcg = 1000 Iu)] Cyanocobalamin (Vitamin B-12) 1,000 mcg PO DAILY 06/05/18 06/04/19 [Vitamin B-12] Multivitamins, Thera [Multivitamin 1 tab PO DAILY 06/05/18 06/04/19 (formulary)] Ubidecarenone [Co Q-10] 100 mg PO DAILY 06/05/18 06/04/19 busPIRone HCl [Buspar] 10 mg PO HS 06/05/18 06/04/19 metFORMIN HCL [Glucophage] 500 mg PO BID 06/06/18 06/04/19 Acetaminophen Tab [Tylenol] 650 mg PO Q6H PRN 07/31/18 06/04/19 levETIRAcetam [Keppra] 1,000 mg PO Q12HR 07/31/18 06/04/19 busPIRone HCl [Buspar] 5 mg PO DAILY 08/13/18 06/04/19 Atorvastatin Calcium [Lipitor] 10 mg PO HS 09/05/18 06/04/19 risperiDONE [RisperDAL] 1 mg PO HS 09/05/18 06/04/19 Omeprazole 20 mg PO DAILY 10/15/18 06/04/19 Carvedilol 25 mg PO BID 12/26/18 06/04/19 Cranberry Fruit Concentrate [Azo 250 mg PO DAILY 12/26/18 06/04/19 Cranberry] Previous Rx's Medication Instructions Recorded Aspirin 81 mg PO DAILY chew 07/23/17 Allergies Allergy/AdvReac Type Severity Reaction Status Date / Time Sulfa (Sulfonamide Allergy Unknown Unknown Verified 06/04/19 17:21 Antibiotics) egg AdvReac Diarrhea Verified 06/04/19 17:21 solifenacin [From Vesic[facility]] AdvReac Confusion/s Verified 06/04/19 17:21 lindsey Review of Systems ROS Statement: Those systems with pertinent positive or pertinent negative responses have been documented in the HPI. ROS Other: All systems not noted in ROS Statement are negative. 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 History of Any Multi-Drug Resistant Organisms: CRE, MRSA Date of last positivie culture/infection: 08/13/18 MDRO Source:: urine. e coli,mrsa Past Surgical History: Hysterectomy Additional Past Surgical History / Comment(s): Total hysterectomy, right hip arthroplasty, laser surgery of the right eye of her bleeding, bladder suspensi on, right elbow metal plate , gamma knife procedure for meningoma lt side of brain 03-11-17 Past Anesthesia/Blood Transfusion Reactions: No Reported Reaction Past Psychological History: Anxiety, Bipolar, Depression Smoking Status: Former smoker Past Alcohol Use History: None Reported Past Drug Use History: None Reported - Past Family History Father Family Medical History: No Reported History Additional Family Medical History / Comment(s): Father is alive in his 80s and is a smoker. Patient does not know his medical history. Mother Family Medical History: No Reported History Additional Family Medical History / Comment(s): Mother at age 79 from Alzheimer's dementia. Sister(s) Family Medical History: Congestive Heart Failure (CHF) Additional Family Medical History / Comment(s): She has one sister that is from heart failure. Patient does not have any brothers. Patient has 2 daughters that are 45 and 42 years of age with no major medical problems. General Exam Limitations: no limitations General appearance: alert, in no apparent distress Head exam: Present: atraumatic, normocephalic, normal inspection Eye exam: Present: normal appearance, PERRL, EOMI. Absent: scleral icterus, conjunctival injection, periorbital swelling ENT exam: Present: normal exam, mucous membranes moist Neck exam: Present: normal inspection. Absent: tenderness, meningismus, lymphadenopathy Respiratory exam: Present: normal lung sounds bilaterally. Absent: respiratory distress, wheezes, rales, rhonchi, stridor Cardiovascular Exam: Present: regular rate, normal rhythm, normal heart sounds. Absent: systolic murmur, diastolic murmur, rubs, gallop, clicks GI/Abdominal exam: Present: soft, normal bowel sounds. Absent: distended, tenderness, guarding, rebound, rigid Extremities exam: Present: normal inspection, full ROM, normal capillary refill. Absent: tenderness, pedal edema, joint swelling, calf tenderness Back exam: Present: normal inspection Neurological exam: Present: alert, oriented X3, CN II-XII intact Psychiatric exam: Present: normal affect, normal mood Skin exam: Present: warm, dry, intact, normal color. Absent: rash Course Vital Signs 06/04/19 16:54 Temperature 98.1 F Pulse Rate 65 Respiratory 18 Rate Blood Pressure 120/74 O2 Sat by Pulse 98 Oximetry - Reevaluation(s) Reevaluation #1: 06/04/19 17:32 Record is reviewed Reevaluation #2: 06/04/19 18:54 Patent patient has no evidence of neurological deficit Medical Decision Making - Medical Decision Making 74 female the ER for evaluation of altered mental status recent diagnosis of urinary tract infection, patient's feeling outpatient treatment worsening UTI with increasing altered mental status woman for IV hydration and IV antibiotics - Lab Data Result diagrams: 06/04/19 17:17 06/04/19 17:17 Lab Results 06/04/19 06/04/19 06/04/19 Range/Units 17:17 17:17 17:17 WBC 7.6 (3.8-10.6) k/uL RBC 4.19 (3.80-5.40) m/uL Hgb 12.4 (11.4-16.0) gm/dL Hct 36.7 (34.0-46.0) % MCV 87.6 (80.0-100.0) fL MCH 29.6 (25.0-35.0) pg MCHC 33.8 (31.0-37.0) g/dL RDW 13.8 (11.5-15.5) % Plt Count 226 (150-450) k/uL Neutrophils % 60 % Lymphocytes % 26 % Monocytes % 10 % Eosinophils % 1 % Basophils % 1 % Neutrophils # 4.6 (1.3-7.7) k/uL Lymphocytes # 2.0 (1.0-4.8) k/uL Monocytes # 0.8 (0-1.0) k/uL Eosinophils # 0.1 (0-0.7) k/uL Basophils # 0.1 (0-0.2) k/uL PT (9.0-12.0) sec INR (<1.2) APTT (22.0-30.0) sec Sodium 137 (137-145) mmol/L Potassium 4.3 (3.5-5.1) mmol/L Chloride 102 (98-107) mmol/L Carbon Dioxide 22 (22-30) mmol/L Anion Gap 13 mmol/L BUN 24 H (7-17) mg/dL Creatinine 0.57 (0.52-1.04) mg/dL Est GFR (CKD-EPI)AfAm >90 (>60 ml/min/1.73 sqM) Est GFR (CKD-EPI)NonAf >90 (>60 ml/min/1.73 sqM) Glucose 115 H (74-99) mg/dL Calcium 9.7 (8.4-10.2) mg/dL Phosphorus 3.5 (2.5-4.5) mg/dL Magnesium 2.2 (1.6-2.3) mg/dL Total Bilirubin 0.4 (0.2-1.3) mg/dL AST 24 (14-36) U/L ALT 22 (9-52) U/L Alkaline Phosphatase 106 (38-126) U/L Ammonia (<30) umol/L Creatine Kinase 114 (30-135) U/L Troponin I (0.000-0.034) ng/mL Total Protein 7.1 (6.3-8.2) g/dL Albumin 4.1 (3.5-5.0) g/dL Urine Color Yellow Urine Appearance Cloudy H (Clear) Urine pH 5.5 (5.0-8.0) Ur Specific [place] 1.011 (1.001-1.035) Urine Protein Negative (Negative) Urine Glucose (UA) 4+ H (Negative) Urine Ketones Negative (Negative) Urine Blood Small H (Negative) Urine Nitrite Negative (Negative) Urine Bilirubin Negative (Negative) Urine Urobilinogen <2.0 (<2.0) mg/dL Ur Leukocyte Esterase Large H (Negative) Urine RBC 17 H (0-5) /hpf Urine WBC >182 H (0-5) /hpf Urine WBC Clumps Many H (None) /hpf Ur Squamous Epith Cells 4 (0-4) /hpf Urine Bacteria Rare H (None) /hpf Urine Mucus Rare H (None) /hpf Urine Opiates Screen Not Detected (NotDetected) Ur Oxycodone Screen Not Detected (NotDetected) Urine Methadone Screen Not Detected (NotDetected) Ur Propoxyphene Screen Not Detected (NotDetected) Ur Barbiturates Screen Not Detected (NotDetected) U Tricyclic Antidepress Not Detected (NotDetected) Ur Phencyclidine Scrn Not Detected (NotDetected) Ur Amphetamines Screen Not Detected (NotDetected) U Methamphetamines Scrn Not Detected (NotDetected) U Benzodiazepines Scrn Not Detected (NotDetected) Urine Cocaine Screen Not Detected (NotDetected) U Marijuana (THC) Screen Not Detected (NotDetected) 06/04/19 06/04/19 06/04/19 Range/Units 17:17 17:17 17:17 WBC (3.8-10.6) k/uL RBC (3.80-5.40) m/uL Hgb (11.4-16.0) gm/dL Hct (34.0-46.0) % MCV (80.0-100.0) fL MCH (25.0-35.0) pg MCHC (31.0-37.0) g/dL RDW (11.5-15.5) % Plt Count (150-450) k/uL Neutrophils % % Lymphocytes % % Monocytes % % Eosinophils % % Basophils % % Neutrophils # (1.3-7.7) k/uL Lymphocytes # (1.0-4.8) k/uL Monocytes # (0-1.0) k/uL Eosinophils # (0-0.7) k/uL Basophils # (0-0.2) k/uL PT 10.1 (9.0-12.0) sec INR 0.9 (<1.2) APTT 22.4 (22.0-30.0) sec Sodium (137-145) mmol/L Potassium (3.5-5.1) mmol/L Chloride (98-107) mmol/L Carbon Dioxide (22-30) mmol/L Anion Gap mmol/L BUN (7-17) mg/dL Creatinine (0.52-1.04) mg/dL Est GFR (CKD-EPI)AfAm (>60 ml/min/1.73 sqM) Est GFR (CKD-EPI)NonAf (>60 ml/min/1.73 sqM) Glucose (74-99) mg/dL Calcium (8.4-10.2) mg/dL Phosphorus (2.5-4.5) mg/dL Magnesium (1.6-2.3) mg/dL Total Bilirubin (0.2-1.3) mg/dL AST (14-36) U/L ALT (9-52) U/L Alkaline Phosphatase (38-126) U/L Ammonia <9 (<30) umol/L Creatine Kinase (30-135) U/L Troponin I <0.012 (0.000-0.034) ng/mL Total Protein (6.3-8.2) g/dL Albumin (3.5-5.0) g/dL Urine Color Urine Appearance (Clear) Urine pH (5.0-8.0) Ur Specific [place] (1.001-1.035) Urine Protein (Negative) Urine Glucose (UA) (Negative) Urine Ketones (Negative) Urine Blood (Negative) Urine Nitrite (Negative) Urine Bilirubin (Negative) Urine Urobilinogen (<2.0) mg/dL Ur Leukocyte Esterase (Negative) Urine RBC (0-5) /hpf Urine WBC (0-5) /hpf Urine WBC Clumps (None) /hpf Ur Squamous Epith Cells (0-4) /hpf Urine Bacteria (None) /hpf Urine Mucus (None) /hpf Urine Opiates Screen (NotDetected) Ur Oxycodone Screen (NotDetected) Urine Methadone Screen (NotDetected) Ur Propoxyphene Screen (NotDetected) Ur Barbiturates Screen (NotDetected) U Tricyclic Antidepress (NotDetected) Ur Phencyclidine Scrn (NotDetected) Ur Amphetamines Screen (NotDetected) U Methamphetamines Scrn (NotDetected) U Benzodiazepines Scrn (NotDetected) Urine Cocaine Screen (NotDetected) U Marijuana (THC) Screen (NotDetected) - Radiology Data Radiology results: report reviewed (CT brain does show remote infarct), image reviewed Disposition Clinical Impression: Weakness, Altered mental status, Urinary tract infection Disposition: ADMITTED IP TO THIS [facility] Condition: Good Is patient prescribed a controlled substance at d/c from ED?: No Referrals: Mani Hunt DO [Primary Care Provider] - 1-2 days
[2019-06-04 17:48] LABS: Basophils # (A) 0.1 k/uL (0-0.2); Basophils % (A) 1 %; Eosinophils # (A) 0.1 k/uL (0-0.7); Eosinophils % (A) 1 %; HCT 36.7 % (34.0-46.0); HGB 12.4 gm/dL (11.4-16.0); Lymphocytes % (A) 26 %; MCH 29.6 pg (25.0-35.0); MCHC 33.8 g/dL (31.0-37.0); MCV 87.6 fL (80.0-100.0); Mean Platelet Volume 6.7; Monocytes # (A) 0.8 k/uL (0-1.0); Monocytes % (A) 10 %; Neutrophils # (A) 4.6 k/uL (1.3-7.7); Neutrophils % (A) 60 %; Platelet Count 226 k/uL (150-450); RBC 4.19 m/uL (3.80-5.40); RDW 13.8 % (11.5-15.5); WBC 7.6 k/uL (3.8-10.6)
--- NOTE | 2019-06-04 17:52 | CT ---
EXAMINATION TYPE: CT brain wo con DATE OF EXAM: 06/04/2019 COMPARISON: 01/16/2019 HISTORY: Confusion with history of breast cancer and CVA per patient CT DLP: 1129.4 mGycm Automated exposure control for dose reduction was used. FINDINGS: There is diffuse cerebral cortical atrophy. There is no mass effect nor midline shift. There is 7 mm focus of calcification at the left parietal convexity in the cortex. This appears unchanged. There is some enlargement of the ventricles on the left side more than the right. There is some maxwell-white ma tter hypodensity left parietal lobe that measures 2 cm and is poorly marginated. IMPRESSION: THERE IS EVIDENCE OF SMALL OLD CORTICAL INFARCT LEFT PARIETAL LOBE WITH SMALL PARENCHYMAL CALCIFICATI ON UNCHANGED. NO ACUTE INTRACRANIAL ABNORMALITY. CEREBRAL ATROPHY.
[2019-06-04 17:53] LABS: Appearance,Urine Cloudy (Clear); Bacteria,Urine Rare /hpf; Bilirubin,Urine Negative (Negative); Blood,Urine Small (Negative); Color,Urine Yellow; Glucose,Urine (UA) 4+ (Negative); Ketones,Urine Negative (Negative); Leukocyte Esterase,Urine Large (Negative); Mucus,Urine Rare /hpf; Nitrite,Urine Negative (Negative); PH, Urine 5.5 (5.0-8.0); Protein,Urine Negative (Negative); RBC,Urine 17 /hpf (0-5); Specific Gravity,Urine 1.011 (1.001-1.035); Squamous Epithelial Cell,Urine 4 /hpf (0-4); Urobilinogen,Urine <2.0 mg/dL (<2.0); WBC,Urine >182 /hpf (0-5)
[2019-06-04 17:57] LABS: Amphetamine Screen,Urine Not Detected (NotDetected); Barbiturate Screen,Urine Not Detected (NotDetected); Benzodiazepines Screen,Urine Not Detected (NotDetected); Cocaine Screen,Urine Not Detected (NotDetected); Methadone Screen, Urine Not Detected (NotDetected); Opiate Screen,Urine Not Detected (NotDetected); Oxycodone Screen, Urine Not Detected (NotDetected); Phencyclidine Screen,Urine Not Detected (NotDetected); Tricyclic Antidepressant,Urine Not Detected (NotDetected); Urn Cannabinoid Scrn Not Detected (NotDetected)
[2019-06-04 18:00] LABS: INR 0.9 (<1.2); Partial Thromboplastin Time 22.4 sec (22.0-30.0); Prothrombin Time 10.1 sec (9.0-12.0)
[2019-06-04 18:02] LABS: ALT 22 U/L (9-52); AST 24 U/L (14-36); African American GFR (CKD) >90 (>60 ml/min/1.73 sqM); Albumin 4.1 g/dL (3.5-5.0); Alkaline Phosphatase 106 U/L (38-126); Anion Gap 13 mmol/L; Blood Urea Nitrogen 24 mg/dL (7-17); Calcium 9.7 mg/dL (8.4-10.2); Carbon Dioxide 22 mmol/L (22-30); Chloride 102 mmol/L (98-107); Creatine Kinase 114 U/L (30-135); Glucose 115 mg/dL (74-99); Magnesium 2.2 mg/dL (1.6-2.3); Phosphorus 3.5 mg/dL (2.5-4.5); Potassium 4.3 mmol/L (3.5-5.1); Sodium 137 mmol/L (137-145); Total Bilirubin 0.4 mg/dL (0.2-1.3); Total Protein 7.1 g/dL (6.3-8.2)
[2019-06-04] MEDS ORDERED: LEVOFLOXACIN 750MG-D5W PMX 750 MG in DEXTROSE/WATER 1 150ML.BAG IVPB STA (18:53)
[2019-06-04] MEDS ORDERED: LEVOFLOXACIN 750MG-D5W PMX 750 MG in DEXTROSE/WATER 1 150ML.BAG IVPB SCH (19:00)
[2019-06-04 20:44] VITALS: BMI 24.4
[2019-06-04 21:47] LABS: Glucose,Whole Blood 128 mg/dL (75-99)
[2019-06-04] MEDS: LEVOFLOXACIN 750MG-D5W PMX 750 MG in DEXTROSE/WATER 1 150ML.BAG IVPB SCH (21:51)
[2019-06-05 07:11] LABS: Glucose,Whole Blood 105 mg/dL (75-99)
[2019-06-05] MEDS ORDERED: ACETAMINOPHEN TAB 325 MG TAB PO PRN (07:45)
[2019-06-05] MEDS: CYANOCOBALAMIN 500 MCG TAB PO SCH (08:52)
[2019-06-05] MEDS: CHOLECALCIFEROL 1,000 UNIT TAB PO SCH (08:53)
[2019-06-05] MEDS: levETIRAcetam 500 MG TAB PO SCH ×2 (08:53→21:35)
[2019-06-05] MEDS: ASPIRIN 81 MG PO SCH (08:53)
[2019-06-05] MEDS: MULTIVITAMINS, THERA 1 EACH TAB PO SCH (08:53)
[2019-06-05] MEDS: ENOXAPARIN 40 MG/0.4 ML SYRINGE SQ SCH (08:55)
[2019-06-05] MEDS: busPIRone HCl 5 MG TAB PO SCH (08:55)
[2019-06-05] MEDS: ANASTROZOLE 1 MG TAB PO SCH (08:55)
[2019-06-05] MEDS: CARVEDILOL 12.5 MG TAB PO SCH ×2 (08:57→17:57)
[2019-06-05] MEDS: PANTOPRAZOLE 40 MG TABLET PO SCH (08:57)
[2019-06-05 11:50] LABS: Glucose,Whole Blood 112 mg/dL (75-99)
--- NOTE | 2019-06-05 12:02 | P.HPIM ---
History of Present Illness H&P Date: 06/05/19 Chief Complaint: Altered mental status/weakness 89-year-old female the ER for evaluation patient resents a for evaluation regarding altered mental status patient doesn't feel "clear" which is probably thought processes thinking straight. Patient is unable to think clearly. His waking up this way for the past few days. She does have prior ER visit patient cannot recount the events of the visit. Patient states that she is confused but is unable to explain her confusion. Patient's also having difficulty sleeping symptoms Review of Systems Constitutional: Denies chills, Denies fever Eyes: denies blurred vision, denies loss of vision Ears, nose, mouth and throat: Denies epistaxis Cardiovascular: Denies chest pain, Denies shortness of breath Respiratory: Denies cough with sputum Gastrointestinal: Denies abdominal pain, Denies nausea, Denies vomiting Genitourinary: Reports urge incontinence, Denies dysuria, Denies hematuria Musculoskeletal: Reports low back pain, Denies gait dysfunction Integumentary: Denies color changes Neurological: Reports confusion Psychiatric: Reports anxiety Endocrine: Denies cold intolerance, Denies heat intolerance Hematologic/Lymphatic: Denies easy bleeding, Denies easy bruising Allergic/Immunologic: Denies seasonal allergies Past Medical History Past Medical History: Cancer, CVA/TIA, Diabetes Mellitus, GERD/Reflux, Hyperlipidemia, Hypertension, Seizure Disorder Additional Past Medical History / Comment(s): Intracranial bleed July 2015, overactive bladder, multi UTI- ecoli, Breast cancer,meningoma lt side of brain - had gamma knife procedure march 11 2017, RT bx,lumpectomy, lymph node removal." had seizure like symptoms on several ocassions but never got a clear answer if it was". History of Any Multi-Drug Resistant Organisms: CRE, MRSA Date of last positivie culture/infection: 08/13/18 MDRO Source:: urine. e coli,mrsa Past Surgical History: Hysterectomy Additional Past Surgical History / Comment(s): Total hysterectomy, right hip arthroplasty, laser surgery of the right eye of her bleeding, bladder suspension, right elbow metal plate , gamma knife procedure for meningoma lt side of brain 03-11-17 Past Anesthesia/Blood Transfusion Reactions: No Reported Reaction Past Psychological History: Anxiety, Bipolar, Depression Additional Psychological History / Comment(s): 03/19/2016- treated for psychosis, bipolar depression, paranoid symptoms and hearing voices. pt lives with her spouse in ranch style home that has 2 steps to enter. has a pet cat. no outside services recieved-daughter heips out when needed. no medical equipment except for cane. Smoking Status: Former smoker Past Alcohol Use History: None Reported Additional Past Alcohol Use History / Comment(s): Patient was a smoker for appro x 6 years and quit in 1979. She denies any medical marijuana, marijuana, street drug or alcohol use. She uses a cane for ambulation since the intracranial bleed in July 2015. Past Drug Use History: None Reported - Past Family History Father Family Medical History: No Reported History Additional Family Medical History / Comment(s): Father is alive in his 80s and is a smoker. Patient does not know his medical history. Mother Family Medical History: No Reported History Additional Family Medical History / Comment(s): Mother at age 79 from Alzheimer's dementia. Sister(s) Family Medical History: Congestive Heart Failure (CHF) Additional Family Medical History / Comment(s): She has one sister that is from heart failure. Patient does not have any brothers. Patient has 2 daughters that are 45 and 42 years of age with no major medical problems. Medications and Allergies Home Medications Medication Instructions Recorded Confirmed Type Anastrozole [Arimidex] 1 mg PO DAILY 12/22/16 06/04/19 History Tolterodine Tartrate [Detrol LA] 4 mg PO HS 07/21/17 06/04/19 History Aspirin 81 mg PO DAILY chew 07/23/17 06/04/19 Rx Melatonin 3 mg PO HS 10/13/17 06/04/19 History Empagliflozin [Jardiance] 10 mg PO DAILY 03/03/18 06/04/19 History Cholecalciferol [Vitamin D3 (25 1,000 unit PO DAILY 06/05/18 06/04/19 History Mcg = 1000 Iu)] Cyanocobalamin (Vitamin B-12) 1,000 mcg PO DAILY 06/05/18 06/04/19 History [Vitamin B-12] Multivitamins, Thera [Multivitamin 1 tab PO DAILY 06/05/18 06/04/19 History (formulary)] Ubidecarenone [Co Q-10] 100 mg PO DAILY 06/05/18 06/04/19 History busPIRone HCl [Buspar] 10 mg PO HS 06/05/18 06/04/19 History metFORMIN HCL [Glucophage] 500 mg PO BID 06/06/18 06/04/19 History Acetaminophen Tab [Tylenol] 650 mg PO Q6H PRN 07/31/18 06/04/19 History levETIRAcetam [Keppra] 1,000 mg PO Q12HR 07/31/18 06/04/19 History busPIRone HCl [Buspar] 5 mg PO DAILY 08/13/18 06/04/19 History Atorvastatin Calcium [Lipitor] 10 mg PO HS 09/05/18 06/04/19 History risperiDONE [RisperDAL] 1 mg PO HS 09/05/18 06/04/19 History Omeprazole 20 mg PO DAILY 10/15/18 06/04/19 History Carvedilol 25 mg PO BID 12/26/18 06/04/19 History Cranberry Fruit Concentrate [Azo 250 mg PO DAILY 12/26/18 06/04/19 History Cranberry] Allergies Allergy/AdvReac Type Severity Reaction Status Date / Time Sulfa (Sulfonamide Allergy Unknown Unknown Verified 06/04/19 17:21 Antibiotics) egg AdvReac Diarrhea Verified 06/04/19 17:21 solifenacin [From Vesicare] AdvReac Confusion/s Verified 06/04/19 17:21 haking Physical Exam Vitals: Vital Signs Temp Pulse Pulse Resp BP BP Pulse Ox 06/05/19 05:00 98.3 F 67 18 167/82 97 06/04/19 21:00 98.6 F 57 L 18 158/88 99 06/04/19 19:15 98.2 F 68 18 122/77 98 06/04/19 19:00 59 L 19 127/57 98 06/04/19 18:00 64 18 136/73 98 06/04/19 17:26 96 06/04/19 16:54 98.1 F 65 18 120/74 98 Intake and Output 06/04/19 06/05/19 06/05/19 22:59 06:59 14:59 Intake Total 50 Balance 50 Intake: Intake, IV Titration 50 Amount Levofloxacin 750Mg-D5w 50 Pmx 750 mg In Dextrose/ Water 1 150ml.bag @ 100 mls/hr IVPB Q24H REPLACED BY [facility] Rx#: [id number] Other: Voiding Method Toilet # Voids 4 Weight 81.647 kg - Constitutional General appearance: Present: average body habitus, cooperative, no acute distress - EENT Eyes: Present: anicteric sclerae, EOMI, PERRLA, normal appearance ENT: Present: hearing grossly normal, normal oropharynx Ears: bilateral: normal - Neck Neck: Present: normal ROM. Absent: lymphadenopathy, rigidity, thyromegaly Carotids: negative: bruit present Thyroid: bilateral: normal size, negative: enlarged, nodule - Respiratory Respiratory: bilateral: CTA, negative: rales, rhonchi, wheezing - Cardiovascular Rhythm: regular Heart sounds: normal: S1, S2 Abnormal Heart Sounds: Absent: systolic murmur, diastolic murmur - Gastrointestinal General gastrointestinal: Present: normal bowel sounds, soft. Absent: distended, organomegaly, tenderness - Genitourinary Genitourinary Comment(s): deferred - Integumentary Integumentary: Present: normal turgor. Absent: jaundiced, rash, ulcer - Neurologic Neurologic: Present: CNII-XII intact. Absent: focal deficits - Musculoskeletal Musculoskeletal: Present: gait normal, strength equal bilaterally - Psychiatric Psychiatric: Present: A&O x's 3, appropriate affect, intact judgment & insight Results CBC & Chem 7: 06/04/19 17:17 06/04/19 17:17 Labs: Abnormal Lab Results - Last 24 Hours (Table) 06/04/19 06/04/19 06/04/19 Range/Units 17:17 17:17 21:46 BUN 24 H (7-17) mg/dL Glucose 115 H (74-99) mg/dL POC Glucose (mg/dL) 128 H (75-99) mg/dL Urine Appearance Cloudy H (Clear) Urine Glucose (UA) 4+ H (Negative) Urine Blood Small H (Negative) Ur Leukocyte Esterase Large H (Negative) Urine RBC 17 H (0-5) /hpf Urine WBC >182 H (0-5) /hpf Urine WBC Clumps Many H (None) /hpf Urine Bacteria Rare H (None) /hpf Urine Mucus Rare H (None) /hpf 06/05/19 Range/Units 07:09 BUN (7-17) mg/dL Glucose (74-99) mg/dL POC Glucose (mg/dL) 105 H (75-99) mg/dL Urine Appearance (Clear) Urine Glucose (UA) (Negative) Urine Blood (Negative) Ur Leukocyte Esterase (Negative) Urine RBC (0-5) /hpf Urine WBC (0-5) /hpf Urine WBC Clumps (None) /hpf Urine Bacteria (None) /hpf Urine Mucus (None) /hpf Microbiology - Last 24 Hours (Table) 06/04/19 17:17 Urine Culture - Preliminary Urine,Voided Thrombosis Risk Factor Assmnt - Choose All That Apply Any of the Below Risk Factors Present?: Yes Each Factor Represents 1 point: Obesity (BMI >25) Other Risk Factors: Yes Each Risk Factor Represents 2 Points: Age 61-74 years Other congenital or acquired thrombophilia - If yes, enter type in comment: No Thrombosis Risk Factor Assessment Total Risk Factor Score: 3 Thrombosis Risk Factor Assessment Level: Moderate Risk Assessment and Plan Assessment: 1. Altered mental status; multifactorial; possibly metabolic encephalopathy due to UTI versus polypharmacy 2. UTI; failing outpatient treatment - We will start patient on Levaquin 500 mg IV every 24 hours; urine and blood cultures are obtained in ED and are pending; tailor antibiotic therapy pending urine and blood cultures 3. Mild renal insufficiency - IV fluid hydration in form of normal saline at a rate of 75 mL an hour; monitor renal function and electrolytes; monitor strict ASHOK's; avoid nephrotoxins and hypotension 4. Hypertension; stable on Coreg 25 mg twice a day 5. Hyperlipidemia; Lipitor 10 mg by mouth daily at bedtime 6. Seizure disorder; Keppra 1000 mg every 12 hours; we will keep patient on seizure precautions 7. DVT prophylaxis; subcu Lovenox CODE STATUS; full code Time with Patient: Greater than 30
[2019-06-05 17:16] LABS: Glucose,Whole Blood 120 mg/dL (75-99)
[2019-06-05 20:10] LABS: Glucose,Whole Blood 195 mg/dL (75-99)
[2019-06-05] MEDS: busPIRone HCl 10 MG TAB PO SCH (21:35)
[2019-06-05] MEDS: OXYBUTYNIN XL 5 MG TAB.ER.24 PO SCH (21:35)
[2019-06-05] MEDS: LEVOFLOXACIN 750MG-D5W PMX 750 MG in DEXTROSE/WATER 1 150ML.BAG IVPB SCH (21:35)
[2019-06-05] MEDS: ATORVASTATIN 10 MG TAB PO SCH (21:35)
[2019-06-06 07:07] LABS: Glucose,Whole Blood 129 mg/dL (75-99)
[2019-06-06 07:27] LABS: Basophils # (A) 0.1 k/uL (0-0.2); Basophils % (A) 1 %; Eosinophils # (A) 0.1 k/uL (0-0.7); Eosinophils % (A) 1 %; HGB 12.2 gm/dL (11.4-16.0); Lymphocytes # (A) 1.6 k/uL (1.0-4.8); Lymphocytes % (A) 24 %; MCH 29.3 pg (25.0-35.0); MCV 88.8 fL (80.0-100.0); Mean Platelet Volume 6.7; Monocytes # (A) 0.4 k/uL (0-1.0); Monocytes % (A) 7 %; Neutrophils # (A) 4.3 k/uL (1.3-7.7); Neutrophils % (A) 64 %; Platelet Count 226 k/uL (150-450); RBC 4.16 m/uL (3.80-5.40); RDW 13.8 % (11.5-15.5); WBC 6.7 k/uL (3.8-10.6)
[2019-06-06 07:38] LABS: African American GFR (CKD) >90 (>60 ml/min/1.73 sqM); Anion Gap 6 mmol/L; Blood Urea Nitrogen 17 mg/dL (7-17); Calcium 9.4 mg/dL (8.4-10.2); Carbon Dioxide 27 mmol/L (22-30); Chloride 106 mmol/L (98-107); Glucose 127 mg/dL (74-99); Potassium 3.9 mmol/L (3.5-5.1); Sodium 139 mmol/L (137-145)
[2019-06-06] MEDS: ENOXAPARIN 40 MG/0.4 ML SYRINGE SQ SCH (08:39)
[2019-06-06] MEDS: PANTOPRAZOLE 40 MG TABLET PO SCH (08:39)
[2019-06-06] MEDS: MULTIVITAMINS, THERA 1 EACH TAB PO SCH (08:39)
[2019-06-06] MEDS: ASPIRIN 81 MG PO SCH (08:39)
[2019-06-06] MEDS: CYANOCOBALAMIN 500 MCG TAB PO SCH (08:39)
[2019-06-06] MEDS: CARVEDILOL 12.5 MG TAB PO SCH ×2 (08:40→17:25)
[2019-06-06] MEDS: levETIRAcetam 500 MG TAB PO SCH ×2 (08:40→21:19)
[2019-06-06] MEDS: CHOLECALCIFEROL 1,000 UNIT TAB PO SCH (08:40)
[2019-06-06] MEDS: ANASTROZOLE 1 MG TAB PO SCH (08:43)
[2019-06-06] MEDS: busPIRone HCl 5 MG TAB PO SCH (08:43)
[2019-06-06 11:40] LABS: Glucose,Whole Blood 163 mg/dL (75-99)
--- NOTE | 2019-06-06 14:03 | P.PN ---
Subjective Progress Note Date: 06/06/19 Principal diagnosis: Altered mental status UTI feeling outpatient treatment 89-year-old female the ER for evaluation patient resents a for evaluation regarding altered mental status patient doesn't feel "clear" which is probably thought processes thinking straight. Patient is unable to think clearly. His waking up this way for the past few days. She does have prior ER visit patient cannot recount the events of the visit. Patient states that she is confused but is unable to explain her confusion. Patient's also having difficulty sleeping symptoms 06/06/2019 Patient is seen and evaluated in the room at bedside; remains pleasantly confu sed; per nursing staff patient has had episodes of marked confusion and agitation which has been getting worse Vital signs and stable in form of temperature of 98.4, pulse 61, respirations 17 and blood pressure 155/74 Labs reviewed with a white blood count of 6.7, hemoglobin 12.2 and platelet count of 226; sodium 139 potassium 3.90 with BUN of 17 and creatinine of 0.5 went We will continue IV antibiotic treatment until urine culture results are available; blood and urine cultures are negative so far; continue with IV fluid hydration; we will consult nephrology for further evaluation on worsening mental status Objective - Vital Signs Vital signs: Vital Signs Temp 97.4 F L 06/06/19 04:43 Pulse 63 06/06/19 04:43 Resp 20 06/06/19 04:43 BP 128/75 06/06/19 04:43 Pulse Ox 97 06/06/19 04:43 Intake & Output 06/05/19 06/06/19 06/06/19 18:59 06:59 18:59 Intake Total 160 Balance 160 Intake: IV 160 0.9 160 Other: Voiding Method Toilet Toilet # Voids 2 - Exam PHYSICAL EXAMINATION: GENERAL: The patient is alert and oriented x3, not in any acute distress. Well developed, well nourished. HEENT: Pupils are round and equally reacting to light. EOMI. No scleral icterus. No conjunctival pallor. Normocephalic, atraumatic. No pharyngeal erythema. No thyromegaly. CARDIOVASCULAR: S1 and S2 present. No murmurs, rubs, or gallops. PULMONARY: Chest is clear to auscultation, no wheezing or crackles. ABDOMEN: Soft, nontender, nondistended, normoactive bowel sounds. No palpable organomegaly. MUSCULOSKELETAL: No joint swelling or deformity. EXTREMITIES: No cyanosis, clubbing, or pedal edema. NEUROLOGICAL: Gross neurological examination did not reveal any focal deficits. SKIN: No rashes. - Labs CBC & Chem 7: 06/06/19 07:08 06/06/19 07:08 Labs: Abnormal Lab Results - Last 24 Hours (Table) 06/05/19 06/05/19 06/05/19 Range/Units 11:48 17:15 20:05 Creatinine (0.52-1.04) mg/dL Glucose (74-99) mg/dL POC Glucose (mg/dL) 112 H 120 H 195 H (75-99) mg/dL 06/06/19 06/06/19 Range/Units 07:06 07:08 Creatinine 0.51 L (0.52-1.04) mg/dL Glucose 127 H (74-99) mg/dL POC Glucose (mg/dL) 129 H (75-99) mg/dL Microbiology - Last 24 Hours (Table) 06/04/19 17:17 Urine Culture - Final Urine,Voided Assessment and Plan Assessment: 1. Altered mental status; multifactorial; possibly metabolic encephalopathy due to UTI versus polypharmacy 2. UTI; failing outpatient treatment - We will start patient on Levaquin 500 mg IV every 24 hours; urine and blood cultures are obtained in ED and are pending; tailor antibiotic therapy pending urine and blood cultures 3. Mild renal insufficiency - IV fluid hydration in form of normal saline at a rate of 75 mL an hour; monitor renal function and electrolytes; monitor strict ASHOK's; avoid nephrotoxi ns and hypotension 4. Hypertension; stable on Coreg 25 mg twice a day 5. Hyperlipidemia; Lipitor 10 mg by mouth daily at bedtime 6. Seizure disorder; Keppra 1000 mg every 12 hours; we will keep patient on seizure precautions 7. DVT prophylaxis; subcu Lovenox CODE STATUS; full code Time with Patient: Greater than 30
[2019-06-06 17:21] LABS: Glucose,Whole Blood 150 mg/dL (75-99)
[2019-06-06 19:17] LABS: Glucose,Whole Blood 197 mg/dL (75-99)
--- NOTE | 2019-06-06 20:36 | P.CNNES ---
History of Present Illness Consult date: 06/06/19 Requesting physician: John Ortiz Reason for Consult: Altered mental status Chief complaint: Confused History of Present Illness: This is a 74 RH female h/o ICH in 07/2015 and seizure disorder controlled on LEV 1g po bid. He is hospitalized currently for a UTI, treated with Levaquin. She has not had any overt clinical seizure activity. However, per hospitalist patient does not feel "clear" cognitively. There is report of nocturnal agitation but no psychosis. No diurnal variation of her cognition. No report of head trauma. Patient is not a good historian and does not provide much insight. My historical information was obtained by reviewing available medical records in EMR and discussing the case with her RN. Review of Systems Cannot obtain due to AMS Past Medical History Past Medical History: Cancer, CVA/TIA, Diabetes Mellitus, GERD/Reflux, Hyperlipidemia, Hypertension, Seizure Disorder Additional Past Medical History / Comment(s): Intracranial bleed July 2015, overactive bladder, multi UTI- ecoli, Breast cancer,meningoma lt side of brain - had gamma knife procedure march 11 2017, RT bx,lumpectomy, lymph node removal." had seizure like symptoms on several ocassions but never got a clear answer if it was". History of Any Multi-Drug Resistant Organisms: CRE, MRSA Date of last positivie culture/infection: 08/13/18 MDRO Source:: urine. e coli,mrsa Past Surgical History: Hysterectomy Additional Past Surgical History / Comment(s): Total hysterectomy, right hip arthroplasty, laser surgery of the right eye of her bleeding, bladder suspension, right elbow metal plate , gamma knife procedure for meningoma lt side of brain 03-11-17 Past Anesthesia/Blood Transfusion Reactions: No Reported Reaction Past Psychological History: Anxiety, Bipolar, Depression Additional Psychological History / Comment(s): 03/19/2016- treated for psychosis, bipolar depression, paranoid symptoms and hearing voices. pt lives with her spouse in ranch style home that has 2 steps to enter. has a pet cat. no outside services recieved-daughter heips out when needed. no medical equipment except for cane. Smoking Status: Former smoker Past Alcohol Use History: None Reported Additional Past Alcohol Use History / Comment(s): Patient was a smoker for approx 6 years and quit in 1979. She denies any medical marijuana, marijuana, s treet drug or alcohol use. She uses a cane for ambulation since the intracranial bleed in July 2015. Past Drug Use History: None Reported - Past Family History Father Family Medical History: No Reported History Additional Family Medical History / Comment(s): Father is alive in his 80s and is a smoker. Patient does not know his medical history. Mother Family Medical History: No Reported History Additional Family Medical History / Comment(s): Mother at age 79 from Alzheimer's dementia. Sister(s) Family Medical History: Congestive Heart Failure (CHF) Additional Family Medical History / Comment(s): She has one sister that is from heart failure. Patient does not have any brothers. Patient has 2 daughters that are 45 and 42 years of age with no major medical problems. Medications and Allergies Home Medications Medication Instructions Recorded Confirmed Type Anastrozole [Arimidex] 1 mg PO DAILY 12/22/16 06/04/19 History Tolterodine Tartrate [Detrol LA] 4 mg PO HS 07/21/17 06/04/19 History Aspirin 81 mg PO DAILY chew 07/23/17 06/04/19 Rx Melatonin 3 mg PO HS 10/13/17 06/04/19 History Empagliflozin [Jardiance] 10 mg PO DAILY 03/03/18 06/04/19 History Cholecalciferol [Vitamin D3 (25 1,000 unit PO DAILY 06/05/18 06/04/19 History Mcg = 1000 Iu)] Cyanocobalamin (Vitamin B-12) 1,000 mcg PO DAILY 06/05/18 06/04/19 History [Vitamin B-12] Multivitamins, Thera [Multivitamin 1 tab PO DAILY 06/05/18 06/04/19 History (formulary)] Ubidecarenone [Co Q-10] 100 mg PO DAILY 06/05/18 06/04/19 History busPIRone HCl [Buspar] 10 mg PO HS 06/05/18 06/04/19 History metFORMIN HCL [Glucophage] 500 mg PO BID 06/06/18 06/04/19 History Acetaminophen Tab [Tylenol] 650 mg PO Q6H PRN 07/31/18 06/04/19 History levETIRAcetam [Keppra] 1,000 mg PO Q12HR 07/31/18 06/04/19 History busPIRone HCl [Buspar] 5 mg PO DAILY 08/13/18 06/04/19 History Atorvastatin Calcium [Lipitor] 10 mg PO HS 09/05/18 06/04/19 History risperiDONE [RisperDAL] 1 mg PO HS 09/05/18 06/04/19 History Omeprazole 20 mg PO DAILY 10/15/18 06/04/19 History Carvedilol 25 mg PO BID 12/26/18 06/04/19 History Cranberry Fruit Concentrate [Azo 250 mg PO DAILY 12/26/18 06/04/19 History Cranberry] Allergies Allergy/AdvReac Type Severity Reaction Status Date / Time Sulfa (Sulfonamide Allergy Unknown Unknown Verified 06/04/19 17:21 Antibiotics) egg AdvReac Diarrhea Verified 06/04/19 17:21 solifenacin [From Vesicare] AdvReac Confusion/s Verified 06/04/19 17:21 haking Physical Examination - Vital Signs Vital Signs: Vital Signs Temp Pulse Resp BP Pulse Ox 06/06/19 12:39 98.4 F 61 17 155/74 97 06/06/19 04:43 97.4 F L 63 20 128/75 97 06/05/19 21:00 97.6 F 66 18 137/74 97 Intake and Output 06/06/19 06/06/19 06/06/19 06:59 14:59 22:59 Other: Voiding Method Toilet Toilet Toilet Incontinent Incontinent # Voids 2 8 Gen NAD Pleasant and cooperative HEENT NCAT Sclera without icterus O/P clear Neck Supple No carotid bruit Cor RRR no m/r/g Lungs CTAB Abd Soft NTND +BS Ext Warm to touch No edema Neuro MS A+Ox2 Waxing and waning mental status knows she's in the hospital thinks is 01/2018 knows she takes Keppra for seizure but does not remember her neurologist's name or name of current [place] President Able to follow basic commands CN PERRL VFF no APD EOMI no nystagmus or ASHOK No facial asymmetry Masseter's symmetric Hearing intact to normal voice bilaterally Speech not dysarthric Equal elevation of palate Tongue midline Sym shrug and SCM bilaterally Motor Normal bulk/tone No pronator or tremors Strength 5/5 sym throughout Sens Intact to LT x4 No neglect or extinction Coord No dysmetria on FTN bilaterally DTRs 2+/4 sym throughout Toes downgoing bilaterally No clonus at achilles Gait Deferred Results CT Head wo cont 06/04/19. Global atrophy. Area of hypoattenuation in the left parietal lobe with small parenchymal calcification. No intracranial hemorrhage. No other acute intracranial abnormalities are seen. I have reviewed neuroimages myself. - Laboratory Findings CBC and BMP: 06/06/19 07:08 06/06/19 07:08 Abnormal Lab Findings: Abnormal Labs 06/04/19 06/04/19 06/04/19 17:17 17:17 21:46 BUN 24 H Creatinine Glucose 115 H POC Glucose (mg/dL) 128 H Urine Appearance Cloudy H Urine Glucose (UA) 4+ H Urine Blood Small H Ur Leukocyte Esterase Large H Urine RBC 17 H Urine WBC >182 H Urine WBC Clumps Many H Urine Bacteria Rare H Urine Mucus Rare H 06/05/19 06/05/19 06/05/19 07:09 11:48 17:15 BUN Creatinine Glucose POC Glucose (mg/dL) 105 H 112 H 120 H Urine Appearance Urine Glucose (UA) Urine Blood Ur Leukocyte Esterase Urine RBC Urine WBC Urine WBC Clumps Urine Bacteria Urine Mucus 06/05/19 06/06/19 06/06/19 20:05 07:06 07:08 BUN Creatinine 0.51 L Glucose 127 H POC Glucose (mg/dL) 195 H 129 H Urine Appearance Urine Glucose (UA) Urine Blood Ur Leukocyte Esterase Urine RBC Urine WBC Urine WBC Clumps Urine Bacteria Urine Mucus 06/06/19 06/06/19 06/06/19 11:11 17:15 19:15 BUN Creatinine Glucose POC Glucose (mg/dL) 163 H 150 H 197 H Urine Appearance Urine Glucose (UA) Urine Blood Ur Leukocyte Esterase Urine RBC Urine WBC Urine WBC Clumps Urine Bacteria Urine Mucus Assessment and Plan Assessment: 74 RH female h/o ICH and seizure disorder on LEV monotherapy here with AMS in the setting of UTI. His clinical presentation is consistent with a metabolic encephalopathy, likely from UTI. Neuro exam is otherwise non-focal. Plan: -EEG in am -TSH and B12 -LEV trough level in am -Continue LEV 1g po q12h -CT Head results reviewed with patient -Would discontinue levofloxacin as fluoroquinolones may lower seizure threshold; UCx sensitivities still pending. RN to get in touch with primary team about antibiotic -d/w patient and RN. All questions answered Thank you for this consultation. Please call with ?. Time with Patient: Greater than 30 (Time spent in direct patient care, greater than 50% of which was spent in [id number] counseling and coordination of care: 70 minutes)
[2019-06-06] MEDS: ATORVASTATIN 10 MG TAB PO SCH (21:19)
[2019-06-06] MEDS: OXYBUTYNIN XL 5 MG TAB.ER.24 PO SCH (21:19)
[2019-06-06] MEDS: busPIRone HCl 10 MG TAB PO SCH (21:19)
[2019-06-07 06:57] LABS: Glucose,Whole Blood 110 mg/dL (75-99)
[2019-06-07] MEDS: PANTOPRAZOLE 40 MG TABLET PO SCH (09:03)
[2019-06-07] MEDS: levETIRAcetam 500 MG TAB PO SCH (09:03)
[2019-06-07] MEDS: ASPIRIN 81 MG PO SCH (09:03)
[2019-06-07] MEDS: CARVEDILOL 12.5 MG TAB PO SCH (09:03)
[2019-06-07] MEDS: ENOXAPARIN 40 MG/0.4 ML SYRINGE SQ SCH (09:03)
[2019-06-07] MEDS: CHOLECALCIFEROL 1,000 UNIT TAB PO SCH (09:03)
[2019-06-07] MEDS: CYANOCOBALAMIN 500 MCG TAB PO SCH (09:03)
[2019-06-07] MEDS: MULTIVITAMINS, THERA 1 EACH TAB PO SCH (09:04)
[2019-06-07] MEDS: ANASTROZOLE 1 MG TAB PO SCH (09:06)
[2019-06-07] MEDS: busPIRone HCl 5 MG TAB PO SCH (09:17)
[2019-06-07 09:49] LABS: Basophils # (A) 0.1 k/uL (0-0.2); Basophils % (A) 1 %; Eosinophils # (A) 0.1 k/uL (0-0.7); Eosinophils % (A) 2 %; HCT 35.9 % (34.0-46.0); Lymphocytes # (A) 1.5 k/uL (1.0-4.8); Lymphocytes % (A) 29 %; MCH 29.8 pg (25.0-35.0); MCHC 33.4 g/dL (31.0-37.0); MCV 89.2 fL (80.0-100.0); Mean Platelet Volume 7.2; Monocytes # (A) 0.4 k/uL (0-1.0); Monocytes % (A) 7 %; Neutrophils % (A) 58 %; Platelet Count 218 k/uL (150-450); RBC 4.03 m/uL (3.80-5.40); RDW 14.1 % (11.5-15.5); WBC 5.2 k/uL (3.8-10.6)
[2019-06-07 10:06] LABS: African American GFR (CKD) >90 (>60 ml/min/1.73 sqM); Anion Gap 7 mmol/L; Blood Urea Nitrogen 19 mg/dL (7-17); Calcium 9.4 mg/dL (8.4-10.2); Carbon Dioxide 27 mmol/L (22-30); Chloride 106 mmol/L (98-107); Glucose 110 mg/dL (74-99); Potassium 4.1 mmol/L (3.5-5.1); Sodium 140 mmol/L (137-145)
[2019-06-07 11:12] LABS: Glucose,Whole Blood 174 mg/dL (75-99)
[2019-06-07 11:54] VITALS: BP 113/64; PULSE 70; RESP 15; TEMP 97.7
--- NOTE | 2019-06-07 15:30 | EEG ---
ELECTROENCEPHALOGRAM REPORT DATE OF TESTIN06/07/2019. CLINICAL PROBLEM: Altered mental status in the setting of urinary tract infection. History of seizure disorder. EEG was requested to rule out epileptic activity. TYPE OF RECORDING: Bedside tracing using the 10-20 international electrode placement system. No sedation was given prior to the beginning of this recording. FINDINGS: The background tracing is seen with a polymorphic theta slowing. There are occasional EMG and eye blink artifacts. Photic stimulation does not elicit a driving response. Hyperventilation is not performed in this recording. There is no definitive sleep architecture seen. There is no background asymmetry, ictal or interictal patterns appreciated. IMPRESSION: This is an abnormal electroencephalogram with excessive background slowing that can be seen in cerebral dysfunction of any cause and can be consistent with metabolic encephalopathy. No epileptiform discharges are seen. Clinical correlation is advised. MMODL / IJN: [id number] / MTDD
--- NOTE | 2019-06-07 16:47 | P.PN ---
Subjective Progress Note Date: 06/07/19 Principal diagnosis: Metabolic encephalopathy due to UTI Seizure disorder Confusion better. Upset right now because misplaced her glasses. Family at bedside. No other neuro c/o. Objective - Vital Signs Vital signs: Vital Signs Temp 97.7 F 06/07/19 11:33 Pulse 70 06/07/19 11:33 Resp 15 06/07/19 11:33 BP 113/64 06/07/19 11:33 Pulse Ox 95 06/07/19 15:39 Intake & Output 06/06/19 06/07/19 06/07/19 18:59 06:59 18:59 Intake Total 600 Balance 600 Intake: Oral 600 Other: Voiding Method Toilet Toilet Incontinent Incontinent # Voids 8 1 3 - Exam Gen NAD Pleasant and cooperative MS A+Ox2 Normal speech CN II-XII grossly intact no nystagmus Motor Normal bulk/tone No tremors POWELL x4 Sens Intact to LT x4 Coord Not tested DTRs 2+/4 sym throughout Gait Deferred - Labs CBC & Chem 7: 06/07/19 08:06 06/07/19 08:06 Labs: Abnormal Lab Results - Last 24 Hours (Table) 06/06/19 06/06/19 06/07/19 Range/Units 17:15 19:15 06:53 BUN (7-17) mg/dL Creatinine (0.52-1.04) mg/dL Glucose (74-99) mg/dL POC Glucose (mg/dL) 150 H 197 H 110 H (75-99) mg/dL 06/07/19 06/07/19 Range/Units 08:06 11:11 BUN 19 H (7-17) mg/dL Creatinine 0.48 L (0.52-1.04) mg/dL Glucose 110 H (74-99) mg/dL POC Glucose (mg/dL) 174 H (75-99) mg/dL Assessment and Plan Assessment: 74 RH female h/o ICH and seizure disorder on LEV monotherapy here with AMS in the setting of UTI. Her clinical presentation is consistent with a metabolic encephalopathy, likely from UTI. Plan: -EEG polymorphic theta slowing c/w metabolic encephalopathy -TSH normal. -LEV trough level and B12 pending. Can follow up as outpatient -Continue LEV 1g po q12h -CT Head unrevealing -Avoid fluoroquinolones in treating UTI that may lower seizure threshold -d/w patient and family. All questions answered -Stable for discharge from acute neuro standpoint. Will revisit patient prn. Please call with new ?. Thank you again for this consultation. Time with Patient: Less than 30 (Time spent in direct patient care, greater than 50% of which was spent in [id number] counseling and coordination of care: 25 minutes)
--- NOTE | 2019-06-13 01:04 | DS ---
DISCHARGE SUMMARY DATE OF ADMISSION: June 04, 2019. DATE OF DISCHARGE: June 07, 2019. FINAL DIAGNOSES: 1. Acute metabolic encephalopathy from urinary tract infection. 2. Acute urinary tract infection with cystitis. 3. Diabetes mellitus type 2. 4. Gastroesophageal reflux disease. 5. Hyperlipidemia. 6. Essential hypertension. 7. History of intracranial bleed in July 2015. 8. Overactive bladder. 9. Bipolar disorder. HOSPITAL COURSE: This patient presented with altered mental status changes. EEG showed evidence of encephalopathy. No seizure activity. CT scan of the brain showed chronic changes. Clinical features of supportive encephalopathy doing better by the time of discharge. CONSULTATIONS: Dr. Chacko from Neurology. EXAMINATION: Temperature 97.7, pulse 72, respiration 16, blood pressure 113/64, pulse ox 95% on room air. Lungs are clear. First and second heart sounds normal. DISCHARGE MEDICATIONS: 1. Arimidex 1 mg p.o. daily. 2. Detrol LA 4 mg q.h.s. 3. Aspirin 81 mg daily. 4. Melatonin 3 mg q.h.s. 5. Vitamin D3 1000 units p.o. daily. 6. Vitamin B12 1000 mcg p.o. daily. 7. Multivitamin 1 tablet p.o. daily. 8. CO Q10 100 mg p.o. daily. 9. Buspirone 10 mg q.h.s. 10.Glucophage 500 mg p.o. b.i.d. 11.Tylenol 650 mg q.6 p.r.n. 12.Keppra 1000 mg p.o. q.12. 13.BuSpar 5 mg p.o. daily. 14.Lipitor 10 mg q.h.s. 15.Risperdal 1 mg q.h.s. 16.Omeprazole 20 mg p.o. daily. 17.Carvedilol 25 mg b.i.d. 18.Azo cranberry 250 mg p.o. daily. 19.Jardiance 10 mg p.o. daily. 20.Macrobid 100 mg p.o. q.12. FOLLOW UP: Follow up with Dr. Hunt on June 14, 2019. Additional note: The patient is told to still hold off the Jardiance until follow up with her family doctor. Copy to Dr. Hunt. [id number] / IJN: [id number] /
== END 2019-06-07 16:55 | disposition home or self-care (01) ==
LOC: EC 16:33 → 3NMEDONC 18:53
PROVIDERS: ADMIT Hospitalist; ATTEND Hospitalist
DX: N30.90 Cystitis, unspecified without hematuria (principal); G93.41 Metabolic encephalopathy; E11.9 Type 2 diabetes mellitus without complications; K21.9 Gastro-esophageal reflux disease without esophagitis; E78.5 Hyperlipidemia, unspecified; I10 Essential (primary) hypertension; F31.9 Bipolar disorder, unspecified; N32.81 Overactive bladder; N28.9 Disorder of kidney and ureter, unspecified; G40.909 Epilepsy, unspecified, not intractable, without status epilepticus; R32 Unspecified urinary incontinence; F41.9 Anxiety disorder, unspecified; Z87.440 Personal history of urinary (tract) infections; Z85.3 Personal history of malignant neoplasm of breast; Z86.73 Personal history of transient ischemic attack (TIA), and cerebral infarction without residual deficits; Z86.14 Personal history of Methicillin resistant Staphylococcus aureus infection; Z87.891 Personal history of nicotine dependence; E66.9 Obesity, unspecified; Z68.31 Body mass index [BMI] 31.0-31.9, adult; Z79.811 Long term (current) use of aromatase inhibitors; Z79.899 Other long term (current) drug therapy; Z79.82 Long term (current) use of aspirin; Z79.84 Long term (current) use of oral hypoglycemic drugs; Z88.2 Allergy status to sulfonamides; Z88.8 Allergy status to other drugs, medicaments and biological substances; Z91.012 Allergy to eggs; Z82.0 Family history of epilepsy and other diseases of the nervous system; Z81.8 Family history of other mental and behavioral disorders; Z82.49 Family history of ischemic heart disease and other diseases of the circulatory system
CPT/HCPCS: 96361 ×3; 96366 ×3; 96367; 96372 ×3; 96365; 99285; 36415; 94760; 95819; 93005; 80053; 80048 ×2; 80177; 84443; 82607; 82140; 82550; 83735; 84100; 84484; 85025 ×3; 85610; 85730; 81001; 80306; 87086; 70450; G0378 ×4; J0696 ×2; J1650 ×3; S0170 ×3; J1956 ×2

== ENCOUNTER 2019-06-11 18:21 | Emergency (ER) | payer MEDICARE, BC ==
[2019-06-11 19:22] LABS: Basophils # (A) 0.1 k/uL (0-0.2); Basophils % (A) 1 %; Eosinophils # (A) 0.1 k/uL (0-0.7); Eosinophils % (A) 2 %; HCT 34.7 % (34.0-46.0); HGB 11.9 gm/dL (11.4-16.0); Lymphocytes # (A) 1.6 k/uL (1.0-4.8); Lymphocytes % (A) 24 %; MCH 29.8 pg (25.0-35.0); MCHC 34.2 g/dL (31.0-37.0); Mean Platelet Volume 6.4; Monocytes # (A) 0.5 k/uL (0-1.0); Monocytes % (A) 7 %; Neutrophils # (A) 4.3 k/uL (1.3-7.7); Neutrophils % (A) 64 %; Platelet Count 214 k/uL (150-450); RBC 3.99 m/uL (3.80-5.40); RDW 13.4 % (11.5-15.5); WBC 6.8 k/uL (3.8-10.6)
--- NOTE | 2019-06-11 19:23 | XR ---
EXAMINATION TYPE: XR chest 2V DATE OF EXAM: 06/11/2019 COMPARISON: 01/16/2019 HISTORY: Altered mental status. Confusion. TECHNIQUE: Frontal and lateral views of the chest are obtained. FINDINGS: Heart is normal. Lungs are clear of infiltrate. There are numerous old right-sided rib fra ctures. There is no pleural effusion. There are no hilar masses. There is some spurring in the thorac ic spine. IMPRESSION: No active cardiomegaly disease. No change.
[2019-06-11 19:31] LABS: ALT 13 U/L (9-52); AST 27 U/L (14-36); African American GFR (CKD) >90 (>60 ml/min/1.73 sqM); Albumin 3.9 g/dL (3.5-5.0); Alkaline Phosphatase 77 U/L (38-126); Anion Gap 8 mmol/L; Blood Urea Nitrogen 17 mg/dL (7-17); Calcium 9.4 mg/dL (8.4-10.2); Carbon Dioxide 24 mmol/L (22-30); Chloride 107 mmol/L (98-107); Creatine Kinase 106 U/L (30-135); Glucose 165 mg/dL (74-99); Sodium 139 mmol/L (137-145); Total Bilirubin 0.4 mg/dL (0.2-1.3); Total Protein 6.8 g/dL (6.3-8.2)
[2019-06-11 19:33] LABS: Potassium 4.3 mmol/L (3.5-5.1)
[2019-06-11 19:36] LABS: Appearance,Urine Clear (Clear); Bacteria,Urine Rare /hpf; Bilirubin,Urine Negative (Negative); Blood,Urine Negative (Negative); Color,Urine Light Yellow; Glucose,Urine (UA) 1+ (Negative); Ketones,Urine Negative (Negative); Leukocyte Esterase,Urine Small (Negative); Nitrite,Urine Negative (Negative); PH, Urine 5.5 (5.0-8.0); Protein,Urine Negative (Negative); RBC,Urine 1 /hpf (0-5); Specific Gravity,Urine 1.004 (1.001-1.035); Squamous Epithelial Cell,Urine 1 /hpf (0-4); Urobilinogen,Urine <2.0 mg/dL (<2.0)
[2019-06-11 19:40] LABS: Amphetamine Screen,Urine Not Detected (NotDetected); Barbiturate Screen,Urine Not Detected (NotDetected); Benzodiazepines Screen,Urine Not Detected (NotDetected); Cocaine Screen,Urine Not Detected (NotDetected); Methadone Screen, Urine Not Detected (NotDetected); Opiate Screen,Urine Not Detected (NotDetected); Oxycodone Screen, Urine Not Detected (NotDetected); Phencyclidine Screen,Urine Not Detected (NotDetected); Tricyclic Antidepressant,Urine Not Detected (NotDetected); Urn Cannabinoid Scrn Not Detected (NotDetected)
[2019-06-11 19:53] LABS: INR 0.9 (<1.2); Prothrombin Time 10.2 sec (9.0-12.0)
[2019-06-11 20:04] LABS: Partial Thromboplastin Time 18.2 sec (22.0-30.0)
--- NOTE | 2019-06-11 20:05 | ED ---
Altered Mental Status HPI - General Chief Complaint: Altered Mental Status Stated Complaint: Mental health Time Seen by Provider: 06/11/19 18:28 Source: patient, family Mode of arrival: ambulatory Limitations: no limitations - History of Present Illness Initial Comments: Patient states that she feels a little off. She denies any headache, lightheadedness or dizziness. She has no weakness. She has no nausea or vomiting. She has no headache. She has no neck pain or stiffness. She has no trouble walking. She is tolerating oral intake. - Related Data Home Medications Medication Instructions Recorded Confirmed Anastrozole [Arimidex] 1 mg PO DAILY 12/22/16 06/11/19 Tolterodine Tartrate [Detrol LA] 4 mg PO HS 07/21/17 06/11/19 Melatonin 3 mg PO HS 10/13/17 06/11/19 Cholecalciferol [Vitamin D3 (25 1,000 unit PO DAILY 06/05/18 06/11/19 Mcg = 1000 Iu)] Cyanocobalamin (Vitamin B-12) 1,000 mcg PO DAILY 06/05/18 06/11/19 [Vitamin B-12] Multivitamins, Thera [Multivitamin 1 tab PO DAILY 06/05/18 06/11/19 (formulary)] Ubidecarenone [Co Q-10] 100 mg PO DAILY 06/05/18 06/11/19 busPIRone HCl [Buspar] 10 mg PO HS 06/05/18 06/11/19 metFORMIN HCL [Glucophage] 500 mg PO BID 06/06/18 06/11/19 Acetaminophen Tab [Tylenol] 650 mg PO Q6H PRN 07/31/18 06/11/19 levETIRAcetam [Keppra] 1,000 mg PO Q12HR 07/31/18 06/11/19 busPIRone HCl [Buspar] 5 mg PO DAILY 08/13/18 06/11/19 Atorvastatin Calcium [Lipitor] 10 mg PO HS 09/05/18 06/11/19 risperiDONE [RisperDAL] 1 mg PO HS 09/05/18 06/11/19 Omeprazole 20 mg PO DAILY 10/15/18 06/11/19 Carvedilol 25 mg PO BID 12/26/18 06/11/19 Cranberry Fruit Concentrate [Azo 250 mg PO DAILY 12/26/18 06/11/19 Cranberry] Empagliflozin [Jardiance] 10 mg PO DAILY 06/11/19 06/11/19 Nitrofurantoin Monohyd/M-Cryst 100 mg PO Q12HR 06/11/19 06/11/19 [Macrobid] Previous Rx's Medication Instructions Recorded Aspirin 81 mg PO DAILY chew 07/23/17 Allergies Allergy/AdvReac Type Severity Reaction Status Date / Time Sulfa (Sulfonamide Allergy Unknown Unknown Verified 06/11/19 19:17 Antibiotics) egg AdvReac Diarrhea Verified 06/11/19 19:17 solifenacin [From [facility]] AdvReac Confusion/s Verified 06/11/19 19:17 lindsey Review of Systems ROS Statement: Those systems with pertinent positive or pertinent negative responses have been documented in the HPI. ROS Other: All systems not noted in ROS Statement are negative. 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 History of Any Multi-Drug Resistant Organisms: CRE, MRSA Date of last positivie culture/infection: 08/13/18 MDRO Source:: urine. e coli,mrsa Past Surgical History: Hysterectomy Additional Past Surgical History / Comment(s): Total hysterectomy, right hip arthroplasty, laser surgery of the right eye of her bleeding, bladder suspension, right elbow metal plate , gamma knife procedure for meningoma lt side of brain 03-11-17 Past Anesthesia/Blood Transfusion Reactions: No Reported Reaction Past Psychological History: Anxiety, Bipolar, Depression Smoking Status: Former smoker Past Alcohol Use History: None Reported Past Drug Use History: None Reported - Past Family History Father Family Medical History: No Reported History Additional Family Medical History / Comment(s): Father is alive in his 80s and is a smoker. Patient does not know his medical history. Mother Family Medical History: No Reported History Additional Family Medical History / Comment(s): Mother at age 79 from Alzheimer's dementia. Sister(s) Family Medical History: Congestive Heart Failure (CHF) Additional Family Medical History / Comment(s): She has one sister that is from heart failure. Patient does not have any brothers. Patient has 2 daughters that are 45 and 42 years of age with no major medical problems. General Exam Limitations: no limitations General appearance: alert, in no apparent distress Head exam: Present: atraumatic, normocephalic, normal inspection Eye exam: Present: normal appearance, PERRL, EOMI. Absent: scleral icterus, conjunctival injection, periorbital swelling ENT exam: Present: normal exam, mucous membranes moist Neck exam: Present: normal inspection. Absent: tenderness, meningismus, lymphadenopathy Respiratory exam: Present: normal lung sounds bilaterally. Absent: respiratory distress, wheezes, rales, rhonchi, stridor Cardiovascular Exam: Present: regular rate, normal rhythm, normal heart sounds. Absent: systolic murmur, diastolic murmur, rubs, gallop, clicks GI/Abdominal exam: Present: soft, normal bowel sounds. Absent: distended, tenderness, guarding, rebound, rigid Extremities exam: Present: normal inspection, full ROM, normal capillary refill. Absent: tenderness, pedal edema, joint swelling, calf tenderness Back exam: Present: normal inspection Neurological exam: Present: alert, oriented X3, CN II-XII intact Psychiatric exam: Present: normal affect, normal mood Skin exam: Present: warm, dry, intact, normal color. Absent: rash Course Vital Signs 06/11/19 18:24 Temperature 98.2 F Medical Decision Making - Medical Decision Making Patient complains of feeling off. She is taking an antibiotic currently. Her vital signs are normal. Antibiotics for UTI. Her laboratory studies today are normal. I advised her to finish taking the antibiotic. She is tolerating oral intake. She has no deficits on exam. She has no significant findings. She is stable for discharge and outpatient follow-up. - Lab Data Result diagrams: 06/11/19 19:06 06/11/19 19:06 Lab Results 06/11/19 06/11/19 06/11/19 Range/Units 19:06 19:06 19:06 WBC 6.8 (3.8-10.6) k/uL RBC 3.99 (3.80-5.40) m/uL Hgb 11.9 (11.4-16.0) gm/dL Hct 34.7 (34.0-46.0) % MCV 87.0 (80.0-100.0) fL MCH 29.8 (25.0-35.0) pg MCHC 34.2 (31.0-37.0) g/dL RDW 13.4 (11.5-15.5) % Plt Count 214 (150-450) k/uL Neutrophils % 64 % Lymphocytes % 24 % Monocytes % 7 % Eosinophils % 2 % Basophils % 1 % Neutrophils # 4.3 (1.3-7.7) k/uL Lymphocytes # 1.6 (1.0-4.8) k/uL Monocytes # 0.5 (0-1.0) k/uL Eosinophils # 0.1 (0-0.7) k/uL Basophils # 0.1 (0-0.2) k/uL PT 10.2 (9.0-12.0) sec INR 0.9 (<1.2) APTT 18.2 L (22.0-30.0) sec Sodium 139 (137-145) mmol/L Potassium 4.3 (3.5-5.1) mmol/L Chloride 107 (98-107) mmol/L Carbon Dioxide 24 (22-30) mmol/L Anion Gap 8 mmol/L BUN 17 (7-17) mg/dL Creatinine 0.49 L (0.52-1.04) mg/dL Est GFR (CKD-EPI)AfAm >90 (>60 ml/min/1.73 sqM) Est GFR (CKD-EPI)NonAf >90 (>60 ml/min/1.73 sqM) Glucose 165 H (74-99) mg/dL Calcium 9.4 (8.4-10.2) mg/dL Total Bilirubin 0.4 (0.2-1.3) mg/dL AST 27 (14-36) U/L ALT 13 (9-52) U/L Alkaline Phosphatase 77 (38-126) U/L Creatine Kinase 106 (30-135) U/L Troponin I (0.000-0.034) ng/mL Total Protein 6.8 (6.3-8.2) g/dL Albumin 3.9 (3.5-5.0) g/dL Urine Color Urine Appearance (Clear) Urine pH (5.0-8.0) Ur Specific [place] (1.001-1.035) Urine Protein (Negative) Urine Glucose (UA) (Negative) Urine Ketones (Negative) Urine Blood (Negative) Urine Nitrite (Negative) Urine Bilirubin (Negative) Urine Urobilinogen (<2.0) mg/dL Ur Leukocyte Esterase (Negative) Urine RBC (0-5) /hpf Urine WBC (0-5) /hpf Ur Squamous Epith Cells (0-4) /hpf Urine Bacteria (None) /hpf Urine Opiates Screen (NotDetected) Ur Oxycodone Screen (NotDetected) Urine Methadone Screen (NotDetected) Ur Propoxyphene Screen (NotDetected) Ur Barbiturates Screen (NotDetected) U Tricyclic Antidepress (NotDetected) Ur Phencyclidine Scrn (NotDetected) Ur Amphetamines Screen (NotDetected) U Methamphetamines Scrn (NotDetected) U Benzodiazepines Scrn (NotDetected) Urine Cocaine Screen (NotDetected) U Marijuana (THC) Screen (NotDetected) 06/11/19 06/11/19 06/11/19 Range/Units 19:06 19:23 19:23 WBC (3.8-10.6) k/uL RBC (3.80-5.40) m/uL Hgb (11.4-16.0) gm/dL Hct (34.0-46.0) % MCV (80.0-100.0) fL MCH (25.0-35.0) pg MCHC (31.0-37.0) g/dL RDW (11.5-15.5) % Plt Count (150-450) k/uL Neutrophils % % Lymphocytes % % Monocytes % % Eosinophils % % Basophils % % Neutrophils # (1.3-7.7) k/uL Lymphocytes # (1.0-4.8) k/uL Monocytes # (0-1.0) k/uL Eosinophils # (0-0.7) k/uL Basophils # (0-0.2) k/uL PT (9.0-12.0) sec INR (<1.2) APTT (22.0-30.0) sec Sodium (137-145) mmol/L Potassium (3.5-5.1) mmol/L Chloride (98-107) mmol/L Carbon Dioxide (22-30) mmol/L Anion Gap mmol/L BUN (7-17) mg/dL Creatinine (0.52-1.04) mg/dL Est GFR (CKD-EPI)AfAm (>60 ml/min/1.73 sqM) Est GFR (CKD-EPI)NonAf (>60 ml/min/1.73 sqM) Glucose (74-99) mg/dL Calcium (8.4-10.2) mg/dL Total Bilirubin (0.2-1.3) mg/dL AST (14-36) U/L ALT (9-52) U/L Alkaline Phosphatase (38-126) U/L Creatine Kinase (30-135) U/L Troponin I <0.012 (0.000-0.034) ng/mL Total Protein (6.3-8.2) g/dL Albumin (3.5-5.0) g/dL Urine Color Light Yellow Urine Appearance Clear (Clear) Urine pH 5.5 (5.0-8.0) Ur Specific [place] 1.004 (1.001-1.035) Urine Protein Negative (Negative) Urine Glucose (UA) 1+ H (Negative) Urine Ketones Negative (Negative) Urine Blood Negative (Negative) Urine Nitrite Negative (Negative) Urine Bilirubin Negative (Negative) Urine Urobilinogen <2.0 (<2.0) mg/dL Ur Leukocyte Esterase Small H (Negative) Urine RBC 1 (0-5) /hpf Urine WBC 6 H (0-5) /hpf Ur Squamous Epith Cells 1 (0-4) /hpf Urine Bacteria Rare H (None) /hpf Urine Opiates Screen Not Detected (NotDetected) Ur Oxycodone Screen Not Detected (NotDetected) Urine Methadone Screen Not Detected (NotDetected) Ur Propoxyphene Screen Not Detected (NotDetected) Ur Barbiturates Screen Not Detected (NotDetected) U Tricyclic Antidepress Not Detected (NotDetected) Ur Phencyclidine Scrn Not Detected (NotDetected) Ur Amphetamines Screen Not Detected (NotDetected) U Methamphetamines Scrn Not Detected (NotDetected) U Benzodiazepines Scrn Not Detected (NotDetected) Urine Cocaine Screen Not Detected (NotDetected) U Marijuana (THC) Screen Not Detected (NotDetected) 06/11/19 20:05 Twelve-lead EKG shows ventricular rate 55 bpm, normal IA interval and QRS complexes, no ST elevation or depression, interpreted by me as sinus bradycardia. Disposition Clinical Impression: Anxiety Disposition: HOME SELF-CARE Condition: Good Instructions (If sedation given, give patient instructions): Urinary Tract Infection in Women (DC) Is patient prescribed a controlled substance at d/c from ED?: No Referrals: Mani Hunt DO [Primary Care Provider] - 1-2 days
[2019-06-11 20:38] VITALS: BP 138/77; PULSE 55; RESP 17; TEMP 98.1
== END 2019-06-11 20:40 | disposition home or self-care (01) ==
LOC: EC 18:21
DX: F41.9 Anxiety disorder, unspecified (principal); E11.9 Type 2 diabetes mellitus without complications; G40.909 Epilepsy, unspecified, not intractable, without status epilepticus; K21.9 Gastro-esophageal reflux disease without esophagitis; I10 Essential (primary) hypertension; E78.5 Hyperlipidemia, unspecified; F31.9 Bipolar disorder, unspecified; Z79.899 Other long term (current) drug therapy; Z79.84 Long term (current) use of oral hypoglycemic drugs; Z79.02 Long term (current) use of antithrombotics/antiplatelets; Z88.2 Allergy status to sulfonamides; Z91.012 Allergy to eggs; Z88.8 Allergy status to other drugs, medicaments and biological substances; Z87.891 Personal history of nicotine dependence; Z86.73 Personal history of transient ischemic attack (TIA), and cerebral infarction without residual deficits; Z85.3 Personal history of malignant neoplasm of breast; Z96.641 Presence of right artificial hip joint
CPT/HCPCS: 36415; 71046; 80053; 80306; 81001; 82550; 84484; 85025; 85610; 85730; 93005; 99285

== ENCOUNTER 2019-07-09 13:56 | Emergency (ER) | payer MEDICARE, BC ==
[2019-07-09 14:05] VITALS: RESP 18; TEMP 98.3
--- NOTE | 2019-07-09 15:35 | ED ---
General Adult HPI - General Source: patient, RN notes reviewed Mode of arrival: ambulatory Limitations: no limitations <Reji Huerta - Last Filed: 07/09/19 16:24> <Scarlet Montez - Last Filed: 07/13/19 15:22> - General Chief complaint: Psychiatric Symptoms Stated complaint: Mental Health Time Seen by Provider: 07/09/19 14:53 - History of Present Illness Initial comments: Patient is a pleasant 74-year-old female presenting to the emergency Department with anxiety and tearfulness. Patient states she is "out of short "for the past several days. Patient has had increased stress. Patient denies suicidal or homicidal thoughts. No new physical complaints. Patient is very tearful and crying uncontrollably. Patient does have history of similar symptoms previously. Patient states she has been sleeping a lot and sometimes waviness in her medications. Patient has been eating and drinking fine. Patient does have some chronic hallucinations about seen family members however this is unchanged. (Reji Huerta) - Related Data Home Medications Medication Instructions Recorded Confirmed Anastrozole [Arimidex] 1 mg PO DAILY 12/22/16 07/09/19 Melatonin 3 mg PO HS 10/13/17 07/09/19 Cholecalciferol [Vitamin D3 (25 1,000 unit PO DAILY 06/05/18 07/09/19 Mcg = 1000 Iu)] Cyanocobalamin (Vitamin B-12) 1,000 mcg PO DAILY 06/05/18 07/09/19 [Vitamin B-12] Multivitamins, Thera [Multivitamin 1 tab PO DAILY 06/05/18 07/09/19 (formulary)] busPIRone HCl [Buspar] 10 mg PO HS 06/05/18 07/09/19 metFORMIN HCL [Glucophage] 500 mg PO BID 06/06/18 07/09/19 busPIRone HCl [Buspar] 5 mg PO DAILY 08/13/18 07/09/19 Atorvastatin Calcium [Lipitor] 10 mg PO HS 09/05/18 07/09/19 risperiDONE [RisperDAL] 1 mg PO HS 09/05/18 07/09/19 Omeprazole 20 mg PO DAILY 10/15/18 07/09/19 Carvedilol 25 mg PO BID 12/26/18 07/09/19 Cranberry Fruit Concentrate [Azo 250 mg PO DAILY 12/26/18 07/09/19 Cranberry] Better Bladder 1 tab PO DAILY 07/09/19 07/09/19 Co-Q10 10 mg PO DAILY 07/09/19 07/09/19 levETIRAcetam [Keppra] 1,500 mg PO Q12H 07/09/19 07/09/19 Previous Rx's Medication Instructions Recorded Aspirin 81 mg PO DAILY chew 07/23/17 Cephalexin [Keflex] 500 mg PO Q12HR #14 cap 07/09/19 Allergies Allergy/AdvReac Type Severity Reaction Status Date / Time Sulfa (Sulfonamide Allergy Unknown Unknown Verified 07/09/19 16:15 Antibiotics) egg AdvReac Diarrhea Verified 07/09/19 16:15 solifenacin [From Vesicare] AdvReac Confusion/s Verified 07/09/19 16:15 haking Review of Systems ROS Other: All systems not noted in ROS Statement are negative. Constitutional: Denies: fever, chills Eyes: Denies: eye pain ENT: Denies: ear pain Respiratory: Denies: cough Cardiovascular: Denies: chest pain Endocrine: Denies: fatigue Gastrointestinal: Denies: abdominal pain Genitourinary: Denies: dysuria Musculoskeletal: Denies: back pain Skin: Denies: rash Neurological: Denies: weakness Psychiatric: Reports: as per HPI, anxiety, depression. Denies: homicidal thoughts, suicidal thoughts <Reji Huerta - Last Filed: 07/09/19 16:24> ROS Other: All systems not noted in ROS Statement are negative. <Scarlet Montez - Last Filed: 07/13/19 15:22> ROS Statement: Those systems with pertinent positive or pertinent negative responses have been documented in the HPI. 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 History of Any Multi-Drug Resistant Organisms: CRE, MRSA Date of last positivie culture/infection: 08/13/18 MDRO Source:: urine. e coli,mrsa Past Surgical History: Hysterectomy Additional Past Surgical History / Comment(s): Total hysterectomy, right hip arthroplasty, laser surgery of the right eye of her bleeding, bladder suspension, right elbow metal plate , gamma knife procedure for meningoma lt side of brain 03-11-17 Past Anesthesia/Blood Transfusion Reactions: No Reported Reaction Past Psychological History: Anxiety, Bipolar, Depression Smoking Status: Former smoker Past Alcohol Use History: None Reported Past Drug Use History: None Reported - Past Family History Father Family Medical History: No Reported History Additional Family Medical History / Comment(s): Father is alive in his 80s and is a smoker. Patient does not know his medical history. Mother Family Medical History: No Reported History Additional Family Medical History / Comment(s): Mother at age 79 from Alzheimer's dementia. Sister(s) Family Medical History: Congestive Heart Failure (CHF) Additional Family Medical History / Comment(s): She has one sister that is from heart failure. Patient does not have any brothers. Patient has 2 daughters that are 45 and 42 years of age with no major medical problems. <Reji Huerta - Last Filed: 07/09/19 16:24> General Exam Limitations: no limitations General appearance: alert, in no apparent distress Head exam: Present: atraumatic Eye exam: Present: normal appearance, PERRL ENT exam: Present: normal oropharynx Neck exam: Present: normal inspection Respiratory exam: Present: normal lung sounds bilaterally Cardiovascular Exam: Present: regular rate, normal rhythm GI/Abdominal exam: Present: soft. Absent: tenderness Extremities exam: Present: normal inspection Neurological exam: Present: alert Expanded Neurological exam: Present: protecting the airway Patient oriented to: Present: person, place. Absent: time Motor strength exam: RUE: 5, LUE: 5, RLE: 5, LLE: 5 Psychiatric exam: Present: depressed Skin exam: Present: normal color <Reji Huerta - Last Filed: 07/09/19 16:24> Course Vital Signs 07/09/19 07/09/19 14:03 20:01 Temperature 98.3 F Pulse Rate 80 62 Respiratory 18 18 Rate Blood Pressure 190/108 157/76 O2 Sat by Pulse 98 97 Oximetry EKG Findings - EKG Comments: EKG Findings:: Sinus bradycardia 58. ME 174. QRS 86. QT 432. QTC 424. Left axis. LVH criteria. No acute ST change. <Reji Huerta - Last Filed: 07/09/19 16:24> Medical Decision Making - Lab Data Result diagrams: 07/09/19 16:17 07/09/19 16:17 <TcScarlet Ary - Last Filed: 07/13/19 15:22> - Medical Decision Making The patient was seen by myself and by the EPS nurse. She is provided resources for outpatient services. She does not meet inpatient criteria at this time. is at bedside and is very supportive of his . He does agree to contract for her safety. She was having increasing urination. Laboratory studies are reviewed and the patient does have an acute urinary tract infection. Because of significant provide her with a dose of Keflex in the ER. I did send her a prescription to pharmacy for Keflex. She is to follow-up with her primary care doctor and have repeat urinalysis performed after the medications are finished. The patient understood this. She was given written and verbal discharge instructions and discharged home in stable condition (Scarlet Montez) - Lab Data Lab Results 07/09/19 07/09/19 07/09/19 Range/Units 15:54 16:17 16:17 WBC 6.3 (3.8-10.6) k/uL RBC 3.90 (3.80-5.40) m/uL Hgb 12.0 (11.4-16.0) gm/dL Hct 35.4 (34.0-46.0) % MCV 90.6 (80.0-100.0) fL MCH 30.8 (25.0-35.0) pg MCHC 34.0 (31.0-37.0) g/dL RDW 12.7 (11.5-15.5) % Plt Count 186 (150-450) k/uL Neutrophils % 63 % Lymphocytes % 24 % Monocytes % 7 % Eosinophils % 2 % Basophils % 1 % Neutrophils # 3.9 (1.3-7.7) k/uL Lymphocytes # 1.5 (1.0-4.8) k/uL Monocytes # 0.5 (0-1.0) k/uL Eosinophils # 0.1 (0-0.7) k/uL Basophils # 0.0 (0-0.2) k/uL Sodium 136 L (137-145) mmol/L Potassium 4.1 (3.5-5.1) mmol/L Chloride 105 (98-107) mmol/L Carbon Dioxide 24 (22-30) mmol/L Anion Gap 7 mmol/L BUN 17 (7-17) mg/dL Creatinine 0.52 (0.52-1.04) mg/dL Est GFR (CKD-EPI)AfAm >90 (>60 ml/min/1.73 sqM) Est GFR (CKD-EPI)NonAf >90 (>60 ml/min/1.73 sqM) Glucose 104 H (74-99) mg/dL Calcium 9.5 (8.4-10.2) mg/dL Urine Color Light Yellow Urine Appearance Cloudy H (Clear) Urine pH 6.5 (5.0-8.0) Ur Specific [place] 1.006 (1.001-1.035) Urine Protein Negative (Negative) Urine Glucose (UA) Negative (Negative) Urine Ketones Negative (Negative) Urine Blood Trace H (Negative) Urine Nitrite Negative (Negative) Urine Bilirubin Negative (Negative) Urine Urobilinogen <2.0 (<2.0) mg/dL Ur Leukocyte Esterase Large H (Negative) Urine RBC 2 (0-5) /hpf Urine WBC >182 H (0-5) /hpf Urine Bacteria Occasional H (None) /hpf Urine Opiates Screen Not Detected (NotDetected) Ur Oxycodone Screen Not Detected (NotDetected) Urine Methadone Screen Not Detected (NotDetected) Ur Propoxyphene Screen Not Detected (NotDetected) Ur Barbiturates Screen Not Detected (NotDetected) U Tricyclic Antidepress Not Detected (NotDetected) Ur Phencyclidine Scrn Not Detected (NotDetected) Ur Amphetamines Screen Not Detected (NotDetected) U Methamphetamines Scrn Not Detected (NotDetected) U Benzodiazepines Scrn Not Detected (NotDetected) Urine Cocaine Screen Not Detected (NotDetected) U Marijuana (THC) Screen Not Detected (NotDetected) Serum Alcohol <10 mg/dL Disposition <Reji Huerta - Last Filed: 07/09/19 16:24> Is patient prescribed a controlled substance at d/c from ED?: No Time of Disposition: 19:54 <Scarlet Montez - Last Filed: 07/13/19 15:22> Clinical Impression: Acute anxiety, Acute urinary tract infection Disposition: HOME SELF-CARE Condition: Stable Additional Instructions: Please follow up with your PCP in 2-4 days for re-evaluation. Return to the ED for any new or worsening symptoms. Prescriptions: Cephalexin [Keflex] 500 mg PO Q12HR #14 cap Referrals: Mani Hunt DO [Primary Care Provider] - 1-2 days
[2019-07-09 16:29] LABS: Basophils % (A) 1 %; Eosinophils # (A) 0.1 k/uL (0-0.7); Eosinophils % (A) 2 %; HCT 35.4 % (34.0-46.0); Lymphocytes # (A) 1.5 k/uL (1.0-4.8); Lymphocytes % (A) 24 %; MCH 30.8 pg (25.0-35.0); MCV 90.6 fL (80.0-100.0); Mean Platelet Volume 6.1; Monocytes # (A) 0.5 k/uL (0-1.0); Monocytes % (A) 7 %; Neutrophils # (A) 3.9 k/uL (1.3-7.7); Neutrophils % (A) 63 %; Platelet Count 186 k/uL (150-450); RDW 12.7 % (11.5-15.5); WBC 6.3 k/uL (3.8-10.6)
[2019-07-09 16:37] LABS: African American GFR (CKD) >90 (>60 ml/min/1.73 sqM); Alcohol <10 mg/dL; Anion Gap 7 mmol/L; Blood Urea Nitrogen 17 mg/dL (7-17); Calcium 9.5 mg/dL (8.4-10.2); Carbon Dioxide 24 mmol/L (22-30); Chloride 105 mmol/L (98-107); Glucose 104 mg/dL (74-99); Potassium 4.1 mmol/L (3.5-5.1); Sodium 136 mmol/L (137-145)
[2019-07-09 17:31] LABS: Appearance,Urine Cloudy (Clear); Bacteria,Urine Occasional /hpf; Bilirubin,Urine Negative (Negative); Blood,Urine Trace (Negative); Color,Urine Light Yellow; Glucose,Urine (UA) Negative (Negative); Ketones,Urine Negative (Negative); Leukocyte Esterase,Urine Large (Negative); Nitrite,Urine Negative (Negative); PH, Urine 6.5 (5.0-8.0); Protein,Urine Negative (Negative); RBC,Urine 2 /hpf (0-5); Specific Gravity,Urine 1.006 (1.001-1.035); Urobilinogen,Urine <2.0 mg/dL (<2.0); WBC,Urine >182 /hpf (0-5)
[2019-07-09 17:37] LABS: Amphetamine Screen,Urine Not Detected (NotDetected); Barbiturate Screen,Urine Not Detected (NotDetected); Benzodiazepines Screen,Urine Not Detected (NotDetected); Cocaine Screen,Urine Not Detected (NotDetected); Methadone Screen, Urine Not Detected (NotDetected); Opiate Screen,Urine Not Detected (NotDetected); Oxycodone Screen, Urine Not Detected (NotDetected); Phencyclidine Screen,Urine Not Detected (NotDetected); Tricyclic Antidepressant,Urine Not Detected (NotDetected); Urn Cannabinoid Scrn Not Detected (NotDetected)
[2019-07-09] MEDS ORDERED: CEPHALEXIN 500 MG CAP PO STA (18:33)
[2019-07-09 20:03] VITALS: BP 157/76; PULSE 62
== END 2019-07-09 20:10 | disposition home or self-care (01) ==
LOC: EC 13:56
DX: F41.9 Anxiety disorder, unspecified (principal); N39.0 Urinary tract infection, site not specified; F31.30 Bipolar disorder, current episode depressed, mild or moderate severity, unspecified; R44.1 Visual hallucinations; F43.9 Reaction to severe stress, unspecified; E11.9 Type 2 diabetes mellitus without complications; K21.9 Gastro-esophageal reflux disease without esophagitis; E78.5 Hyperlipidemia, unspecified; I10 Essential (primary) hypertension; G40.909 Epilepsy, unspecified, not intractable, without status epilepticus; N32.81 Overactive bladder; Z87.891 Personal history of nicotine dependence; Z88.2 Allergy status to sulfonamides; Z88.8 Allergy status to other drugs, medicaments and biological substances; Z91.012 Allergy to eggs; Z79.84 Long term (current) use of oral hypoglycemic drugs; Z79.899 Other long term (current) drug therapy; Z85.3 Personal history of malignant neoplasm of breast; Z86.011 Personal history of benign neoplasm of the brain; Z86.14 Personal history of Methicillin resistant Staphylococcus aureus infection; Z98.890 Other specified postprocedural states
CPT/HCPCS: 99285 ×2; 36415; 93005; 80048; 85025; 81001; 80306; G0480; 80320

== ENCOUNTER 2019-09-01 16:12 | Emergency (ER) | payer MEDICARE, BC ==
[2019-09-01] MEDS ORDERED: SODIUM CHLORIDE 0.9% 1,000 ML IV STA (16:16)
[2019-09-01] MEDS ORDERED: LORazepam 2 MG/ML INJ IV STA (16:19)
[2019-09-01] MEDS ORDERED: levETIRAcetam IV 1,000 MG in SALINE 1 100ML.BAG IVPB STA (16:24)
--- NOTE | 2019-09-01 16:27 | ED ---
General Adult HPI - General Stated complaint: Stroke - History of Present Illness Initial comments: Dictation was produced using [employer] dictation software. please excuse any g rammatical, word or spelling errors. Chief Complaint: 74-year-old female with past medical history of intracranial tumors, seizure disorder, dyslipidemia and hypertension, intracranial bleed since with strokelike symptoms. History of Present Illness: A 74-year-old female is brought in by EMS. Patient was at outpatient clinic's office when she was noted to have tonic-clonic activity observed by staff member at the clinic. Patient has history of intracranial tumors. She also has history of dementia. Patient is baseline alert and oriented 2 out of 3 however according EMS patient is typically able to follow commands. Patient is noted to have several minutes of seizure-like activity. After the cessation of seizure-like activity patient was awake however was noted to have right-sided paralysis. It is unclear if patient has residual deficits from previous intracranial bleed, brain tumor or other intracranial process. Patient is not able to follow commands. According to EMS patient had a blood sugar measured in the 190s. Patient was last seen normal approximately 30 minutes prior to arrival to the emergency department. Unable to obtain ROS secondary to mental status PHYSICAL EXAM: General Impression: Alert, no acute distress, not follow commands HEENT: Normocephalic atraumatic, extra-ocular movements intact, pupils equal and reactive to light bilaterally, right-sided facial droop Cardiovascular: Heart regular rate and rhythm, S1&S2 audible, no murmurs, rubs or gallops Chest: Lungs clear to auscultation bilaterally, no rhonchi, no wheeze, no rales Abdomen: Bowel sounds present, abdomen soft, non-tender, non-distended, no organomegaly Musculoskeletal: Pulses present and equal in all extremities, no peripheral edema Motor: no focal deficits noted Neurological: Right facial droop, not follow commands, decrease sensation to painful stimuli the right upper and right lower extremity, intact sensation to painful stimuli of the left upper or left lower extremity, not follow commands, nonverbal Skin: Intact with no visualized rashes ED course: 74 feel presents with strokelike symptoms. Patient has extensive intracranial history including intracranial hemorrhage, intracranial mass and seizures. Patient does not appear to be in distress. NIH score is proximal 25. There is some concern that patient is expressing thoughts paralysis given there was observed seizure-like activity. Patient started off in resuscitation bay. Vital signs upon arrival shows heart rate of 108, blood pressure 192/120. The glucose is 174. Code stroke was paged. was at bedside reports that patient has had multiple seizures earlier today. She had most recently had gamma knife procedure performed on intracranial tumor approximately year and a half ago. Discussed patient case with Dr. Tripathi stroke doctor who presented patient is not a candidate for TPA administration at this time. While getting ready to go to CT patient was having tonic-clonic seizure-like activity. She is given 2 mg of IV Ativan. Seizing stopped. She also ordered 4 g of Keppra. 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 Family reports that she still appears slightly altered. Laboratory evaluation obtained. CBC, metabolic panel is grossly unremarkable. She does have a mild anion gap acidosis likely secondary to seizure. Troponin 0.033. Imaging studies are unremarkable. Stress patient case with Dr. Mendez is willing to accept transfer of care. Patient be transferred to [facility] for continuity of care. EKG interpretation: Ventricular rate 90, normal sinus rhythm, CT interval 184, care is 86, QTC 437. No CT prolongation, no QTC prolongation, no ST or T-wave changes noted. . Overall, this EKG is unremarkable - Related Data Home Medications Medication Instructions Recorded Confirmed Anastrozole [Arimidex] 1 mg PO DAILY 12/22/16 07/09/19 Melatonin 3 mg PO HS 10/13/17 07/09/19 Cholecalciferol [Vitamin D3 (25 1,000 unit PO DAILY 06/05/18 07/09/19 Mcg = 1000 Iu)] Cyanocobalamin (Vitamin B-12) 1,000 mcg PO DAILY 06/05/18 07/09/19 [Vitamin B-12] Multivitamins, Thera [Multivitamin 1 tab PO DAILY 06/05/18 07/09/19 (formulary)] busPIRone HCl [Buspar] 10 mg PO HS 06/05/18 07/09/19 metFORMIN HCL [Glucophage] 500 mg PO BID 06/06/18 07/09/19 busPIRone HCl [Buspar] 5 mg PO DAILY 08/13/18 07/09/19 Atorvastatin Calcium [Lipitor] 10 mg PO HS 09/05/18 07/09/19 risperiDONE [RisperDAL] 1 mg PO HS 09/05/18 07/09/19 Omeprazole 20 mg PO DAILY 10/15/18 07/09/19 Carvedilol 25 mg PO BID 12/26/18 07/09/19 Cranberry Fruit Concentrate [Azo 250 mg PO DAILY 12/26/18 07/09/19 Cranberry] Better Bladder 1 tab PO DAILY 07/09/19 07/09/19 Co-Q10 10 mg PO DAILY 07/09/19 07/09/19 levETIRAcetam [Keppra] 1,500 mg PO Q12H 07/09/19 07/09/19 Previous Rx's Medication Instructions Recorded Aspirin 81 mg PO DAILY chew 07/23/17 Cephalexin [Keflex] 500 mg PO Q12HR #14 cap 07/09/19 Allergies Allergy/AdvReac Type Severity Reaction Status Date / Time Sulfa (Sulfonamide Allergy Unknown Unknown Verified 07/09/19 16:15 Antibiotics) egg AdvReac Diarrhea Verified 07/09/19 16:15 solifenacin [From Vesicare] AdvReac Confusion/s Verified 07/09/19 16:15 haking Review of Systems ROS Statement: Those systems with pertinent positive or pertinent negative responses have been documented in the HPI. ROS Other: All systems not noted in ROS Statement are negative. 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 History of Any Multi-Drug Resistant Organisms: CRE, MRSA Date of last positivie culture/infection: 08/13/18 MDRO Source:: urine. e coli,mrsa Past Surgical History: Hysterectomy Additional Past Surgical History / Comment(s): Total hysterectomy, right hip arthroplasty, laser surgery of the right eye of her bleeding, bladder suspension, right elbow metal plate , gamma knife procedure for meningoma lt side of brain 03-11-17 Past Anesthesia/Blood Transfusion Reactions: No Reported Reaction Past Psychological History: Anxiety, Bipolar, Depression Smoking Status: Former smoker Past Alcohol Use History: None Reported Past Drug Use History: None Reported - Past Family History Father Family Medical History: No Reported History Additional Family Medical History / Comment(s): Father is alive in his 80s and is a smoker. Patient does not know his medical history. Mother Family Medical History: No Reported History Additional Family Medical History / Comment(s): Mother at age 79 from Alzheimer's dementia. Sister(s) Family Medical History: Congestive Heart Failure (CHF) Additional Family Medical History / Comment(s): She has one sister that is from heart failure. Patient does not have any brothers. Patient has 2 daughters that are 45 and 42 years of age with no major medical problems. Course Vital Signs 09/01/19 09/01/19 09/01/19 16:15 16:24 16:30 Temperature 98.0 F 98.5 F 98 F Pulse Rate 103 H 108 H 85 Respiratory 18 18 18 Rate Blood Pressure 178/90 192/120 132/77 O2 Sat by Pulse 98 95 99 Oximetry 09/01/19 09/01/19 09/01/19 16:55 17:00 17:15 Temperature 97.9 F 98.1 F Pulse Rate 87 86 92 Respiratory 18 18 18 Rate Blood Pressure 134/77 143/72 143/75 O2 Sat by Pulse 100 100 100 Oximetry 09/01/19 09/01/19 17:45 18:00 Temperature Pulse Rate 90 96 Respiratory 16 17 Rate Blood Pressure 136/67 146/90 O2 Sat by Pulse 100 99 Oximetry Medical Decision Making - Lab Data Result diagrams: 09/01/19 16:55 09/01/19 16:55 Lab Results 09/01/19 09/01/19 09/01/19 Range/Units 16:55 16:55 16:55 WBC 4.9 (3.8-10.6) k/uL RBC 4.21 (3.80-5.40) m/uL Hgb 12.2 (11.4-16.0) gm/dL Hct 38.5 (34.0-46.0) % MCV 91.4 (80.0-100.0) fL MCH 29.0 (25.0-35.0) pg MCHC 31.7 (31.0-37.0) g/dL RDW 12.2 (11.5-15.5) % Plt Count 180 (150-450) k/uL Neutrophils % 71 % Lymphocytes % 16 % Monocytes % 8 % Eosinophils % 2 % Basophils % 1 % Neutrophils # 3.5 (1.3-7.7) k/uL Lymphocytes # 0.8 L (1.0-4.8) k/uL Monocytes # 0.4 (0-1.0) k/uL Eosinophils # 0.1 (0-0.7) k/uL Basophils # 0.0 (0-0.2) k/uL Sodium 137 (137-145) mmol/L Potassium 4.0 (3.5-5.1) mmol/L Chloride 103 (98-107) mmol/L Carbon Dioxide 20 L (22-30) mmol/L Anion Gap 14 mmol/L BUN 14 (7-17) mg/dL Creatinine 0.61 (0.52-1.04) mg/dL Est GFR (CKD-EPI)AfAm >90 (>60 ml/min/1.73 sqM) Est GFR (CKD-EPI)NonAf >90 (>60 ml/min/1.73 sqM) Glucose 155 H (74-99) mg/dL Calcium 9.3 (8.4-10.2) mg/dL Total Bilirubin 0.5 (0.2-1.3) mg/dL AST 27 (14-36) U/L ALT 15 (4-34) U/L Alkaline Phosphatase 107 (38-126) U/L Troponin I 0.033 (0.000-0.034) ng/mL Total Protein 7.3 (6.3-8.2) g/dL Albumin 4.2 (3.5-5.0) g/dL Critical Care Time Critical Care Time: Yes (31) Disposition Clinical Impression: Seizure, Stroke-like symptoms Disposition: OTHER INSTITUTION NOT DEFINED Condition: Fair Referrals: Mani Hunt DO [Primary Care Provider] - 1-2 days Time of Disposition: 19:38 - Out of Hospital Transfer - Req. Specs Out of Hospital Transfer - Requested Specifics: Other Emergency Center ([facility]
--- NOTE | 2019-09-01 16:43 | CT ---
EXAMINATION TYPE: CT brain wo con for TPA DATE OF EXAM: 09/01/2019 COMPARISON: 06/04/2019 HISTORY: Mental status changes CT DLP: 1085.8 mGycm Automated exposure control for dose reduction was used. There is cerebral cortical atrophy. There is no mass effect nor midline shift. There is no sign of in tracranial hemorrhage. There is mild ectasia of the basilar artery. Calvarium is intact. Impression cerebral atrophy. Ectasia of the basilar artery. No change compared to old exam. No acute intracrani al abnormality.
--- NOTE | 2019-09-01 17:02 | XR ---
EXAMINATION TYPE: XR chest 1V portable DATE OF EXAM: 09/01/2019 COMPARISON: 06/11/2019 HISTORY: Confusion TECHNIQUE: Single view FINDINGS: There are multiple old right-sided healed rib fractures. There is no heart failure nor conf luent pneumonic infiltrate. Thoracic aorta is atheromatous. There is no pleural effusion. There are c hest leads. IMPRESSION: No active cardiopulmonary disease. Atheromatous aorta. No significant change.
[2019-09-01 17:05] LABS: Basophils % (A) 1 %; Eosinophils # (A) 0.1 k/uL (0-0.7); Eosinophils % (A) 2 %; HCT 38.5 % (34.0-46.0); HGB 12.2 gm/dL (11.4-16.0); Lymphocytes # (A) 0.8 k/uL (1.0-4.8); Lymphocytes % (A) 16 %; MCHC 31.7 g/dL (31.0-37.0); MCV 91.4 fL (80.0-100.0); Mean Platelet Volume 7.7; Monocytes # (A) 0.4 k/uL (0-1.0); Monocytes % (A) 8 %; Neutrophils # (A) 3.5 k/uL (1.3-7.7); Neutrophils % (A) 71 %; Platelet Count 180 k/uL (150-450); RBC 4.21 m/uL (3.80-5.40); RDW 12.2 % (11.5-15.5); WBC 4.9 k/uL (3.8-10.6)
--- NOTE | 2019-09-01 17:10 | CT ---
EXAMINATION TYPE: CT angio head neck DATE OF EXAM: 09/01/2019 COMPARISON: 08/09/2017 HISTORY: Mental status changes. CT DLP: 535.6 mGycm Automated exposure control for dose reduction was used. CONTRAST: Performed with IV Contrast, patient injected with 65 mL of Isovue 370. There are 3-D post processed images. There is normal branching pattern of the great vessels on the aortic arch. There is bilateral arteria l flow in the subclavian arteries. There is arterial flow in both vertebral arteries which are fairly symmetric. There is arterial flow in the vertebrobasilar artery system. There is bilateral arterial flow in the common internal and external carotid arteries. There is minim al plaque at the carotid artery bifurcations. There is no evidence of any hemodynamic stenosis. Lumen narrowing is less than 10%. There is no evidence of carotid or vertebral artery aneurysm or dissecti on. There is arterial flow in the anterior middle and posterior cerebral arteries. There is arterial flow in the intracranial internal carotid arteries. There is no mass effect. There is no evidence of intr acranial aneurysm or neovascularity. I see no hemodynamic stenosis. New graft impression Negative CT angiogram of the neck. Negative CT angiogram of the brain. No adverse change compared to old exam. Stable calcified nodule left thyroid lobe.
[2019-09-01 17:14] LABS: ALT 15 U/L (4-34); AST 27 U/L (14-36); African American GFR (CKD) >90 (>60 ml/min/1.73 sqM); Albumin 4.2 g/dL (3.5-5.0); Alkaline Phosphatase 107 U/L (38-126); Anion Gap 14 mmol/L; Blood Urea Nitrogen 14 mg/dL (7-17); Calcium 9.3 mg/dL (8.4-10.2); Carbon Dioxide 20 mmol/L (22-30); Chloride 103 mmol/L (98-107); Glucose 155 mg/dL (74-99); Non-African American GFR(CKD) >90 (>60 ml/min/1.73 sqM); Sodium 137 mmol/L (137-145); Total Bilirubin 0.5 mg/dL (0.2-1.3); Total Protein 7.3 g/dL (6.3-8.2)
[2019-09-01 18:07] VITALS: RESP 17
[2019-09-01 19:44] LABS: Prothrombin Time 10.3 sec (9.0-12.0)
[2019-09-01 19:49] LABS: Partial Thromboplastin Time 18.7 sec (22.0-30.0)
[2019-09-01 21:02] VITALS: TEMP 98.2
[2019-09-01 21:03] VITALS: BP 142/80; PULSE 90
[2019-09-07 14:17] LABS: Glucose,Whole Blood 179 mg/dL (75-99)
== END 2019-09-01 20:16 | disposition other institution (70) ==
LOC: EC 16:12
DX: G40.909 Epilepsy, unspecified, not intractable, without status epilepticus (principal); E87.2 Acidosis; F41.9 Anxiety disorder, unspecified; F31.9 Bipolar disorder, unspecified; K21.9 Gastro-esophageal reflux disease without esophagitis; E11.9 Type 2 diabetes mellitus without complications; I10 Essential (primary) hypertension; E78.5 Hyperlipidemia, unspecified; F03.90 Unspecified dementia, unspecified severity, without behavioral disturbance, psychotic disturbance, mood disturbance, and anxiety; Z79.82 Long term (current) use of aspirin; Z79.84 Long term (current) use of oral hypoglycemic drugs; Z79.899 Other long term (current) drug therapy; Z88.2 Allergy status to sulfonamides; Z91.012 Allergy to eggs; Z88.1 Allergy status to other antibiotic agents; Z87.891 Personal history of nicotine dependence; Z86.011 Personal history of benign neoplasm of the brain; Z90.11 Acquired absence of right breast and nipple; Z96.641 Presence of right artificial hip joint; Z86.73 Personal history of transient ischemic attack (TIA), and cerebral infarction without residual deficits; Z85.3 Personal history of malignant neoplasm of breast; Z86.79 Personal history of other diseases of the circulatory system
CPT/HCPCS: 36415; 93005; 80053; 84484; 85025; 85610; 85730; 71045; 70496; 70450; 70498; 99291; 96365; 96375; 96361; J2060; J1953; Q9967

== ENCOUNTER 2019-10-24 14:03 | Inpatient (IN) | payer BC, MEDICARE ==
--- NOTE | 2019-10-24 14:26 | CT ---
EXAMINATION TYPE: CT brain wo con for TPA DATE OF EXAM: 10/24/2019 COMPARISON: 09/01/2019 HISTORY: Neuro deficit, acute, stroke suspected. CT DLP: 1122.8 mGycm Automated exposure control for dose reduction was used. TECHNIQUE: CT scan of the head is performed without contrast. FINDINGS: There is no acute intracranial hemorrhage or midline shift identified. There is diffuse v entricular and sulcal prominence consistent with diffuse age-related cerebral atrophy. Stable focal a jacquelyn of hypoattenuation in the left frontoparietal junction with adjacent hypodensity of the white mat ter. There is low-attenuation in the periventricular white matter consistent with chronic small vesse l ischemic change. The globes are intact and the visualized sinuses are clear. Stable approximatel y 1.3 cm meningioma at the left cerebellar pontine angle. IMPRESSION: Chronic findings with no acute intracranial process.
[2019-10-24 14:38] LABS: Glucose,Whole Blood 123 mg/dL (75-99)
[2019-10-24 14:52] LABS: Basophils # (A) 0.1 k/uL (0-0.2); Basophils % (A) 2 %; Eosinophils # (A) 0.1 k/uL (0-0.7); Eosinophils % (A) 2 %; HCT 39.4 % (34.0-46.0); HGB 13.1 gm/dL (11.4-16.0); Lymphocytes # (A) 1.1 k/uL (1.0-4.8); Lymphocytes % (A) 17 %; MCH 29.6 pg (25.0-35.0); MCHC 33.3 g/dL (31.0-37.0); MCV 88.9 fL (80.0-100.0); Monocytes # (A) 0.4 k/uL (0-1.0); Monocytes % (A) 6 %; Neutrophils # (A) 4.8 k/uL (1.3-7.7); Neutrophils % (A) 71 %; Platelet Count 211 k/uL (150-450); RBC 4.44 m/uL (3.80-5.40); RDW 12.6 % (11.5-15.5); WBC 6.8 k/uL (3.8-10.6)
--- NOTE | 2019-10-24 15:04 | CT ---
EXAMINATION TYPE: CT angio head neck DATE OF EXAM: 10/24/2019 HISTORY: Altered mental status. COMPARISON: NONE CT DLP: 09/01/2019 mGycm. Automated Exposure Control for Dose Reduction was Utilized. TECHNIQUE: Exam was repeated due to patient motion. CTA scan of the neck is performed with IV Contrast, patient injected with 65 mL of Isovue 370, axial images are obtained, coronal and sagittal reformatted images are reviewed. Three-D reconstructed imag es are created on an independent workstation and reviewed. FINDINGS: Carotid/Vascular Structures: There is a conventional branch pattern of the aortic arch. Moderate athe rosclerosis of the aortic arch. The common carotid arteries are patent with mild nonhemodynamically s ignificant calcific plaquing of the bilateral carotid bulbs. The cervical portions of the internal ca rotid arteries are unremarkable. The vertebral arteries are grossly patent. On the repeat examination contrast bolus is slightly suboptimal however within this limitations the following observations are made. Vertebral arteries are codominant. Posterior circulation is intact. Anterior circulation is al so intact and patent. Visualized portions of the brain are discussed in the CT brain dictation of the same date. There are moderate degenerative changes of the cervical spine. Lung apices demonstrate parrish bsegmental atelectasis but are otherwise unremarkable. Other: Redemonstration of a calcified left thyroid nodule. IMPRESSION: No major arterial occlusion, dissection, no gross evidence of aneurysmal outpouching giv en the limitation of motion artifact in the head or neck.
[2019-10-24 15:14] LABS: Appearance,Urine Turbid (Clear); Bacteria,Urine Many /hpf; Bilirubin,Urine Negative (Negative); Blood,Urine Trace (Negative); Color,Urine Yellow; Glucose,Urine (UA) 4+ (Negative); Ketones,Urine 1+ (Negative); Leukocyte Esterase,Urine Large (Negative); Mucus,Urine Occasional /hpf; Nitrite,Urine Positive (Negative); Protein,Urine Trace (Negative); RBC,Urine 7 /hpf (0-5); Specific Gravity,Urine 1.025 (1.001-1.035); Squamous Epithelial Cell,Urine <1 /hpf (0-4); Urobilinogen,Urine <2.0 mg/dL (<2.0); WBC,Urine >182 /hpf (0-5)
--- NOTE | 2019-10-24 15:19 | XR ---
EXAMINATION TYPE: XR chest 2V DATE OF EXAM: 10/24/2019 COMPARISON: 09/01/2019 HISTORY: Altered mental status TECHNIQUE: Frontal and lateral views of the chest are obtained. FINDINGS: There is unfolding of the thoracic aorta. Mediastinal widening could be due to patient pos itioning. Calcified pleural plaques are again redemonstrated on the right. Coarsened interstitium is similar to the prior and chronic. No new focal consolidation, pleural effusion or pneumothorax. Bridg ing anterior osteophytes are seen. Surgical clips are seen in the gallbladder fossa. IMPRESSION: 1. Calcified pleural plaquing suggesting prior asbestos exposure. Chronic interstitial lung changes w ith no new focal consolidation, pleural effusion or pneumothorax. 2. Mediastinal widening is somewhat similar to the prior and could relate to thoracic unfolding, kinza ent positioning or aneurysm.
--- NOTE | 2019-10-24 15:27 | ED ---
General Adult HPI - General Chief complaint: Neuro Symptoms/Deficit Stated complaint: poss stroke Time Seen by Provider: 10/24/19 14:05 Source: EMS Mode of arrival: EMS Limitations: no limitations - History of Present Illness Initial comments: The patient is a 74-year-old female past history of CVA, intracranial bleed, meningioma status post Gamma knife and seizure disorder with Brennen's paralysis who presents to the emergency department with reported strokelike symptoms. The patient is a poor historian. History is obtained from EMS and the patient's . The patient normally ambulates unassisted. Her noted today that she was having difficulty ambulating due to weakness in her lower extremity. The right lower extremity was completely flaccid. The patient was also having some confusion. Because he did call EMS. The patient is alert 2 which is close to her baseline however hasn't reports increased confusion. She is currently being treated for a urinary tract infection with outpatient anabiotics. He states that she does have a history of CVA however weakness in her lower extremity is is new. She denies any chest pain or shortness of breath. No abdominal pain. The remainder of HPI is limited because of the patient's inability to answer questions appropriately. - Related Data Home Medications Medication Instructions Recorded Confirmed Anastrozole [Arimidex] 1 mg PO DAILY 12/22/16 10/28/19 Melatonin 3 mg PO HS 10/13/17 10/28/19 Cholecalciferol [Vitamin D3 (25 1,000 unit PO DAILY 06/05/18 10/28/19 Mcg = 1000 Iu)] Cyanocobalamin (Vitamin B-12) 1,000 mcg PO DAILY 06/05/18 10/28/19 [Vitamin B-12] Multivitamins, Thera [Multivitamin 1 tab PO DAILY 06/05/18 10/28/19 (formulary)] busPIRone HCl [Buspar] 10 mg PO HS 06/05/18 10/28/19 metFORMIN HCL [Glucophage] 500 mg PO BID 06/06/18 10/28/19 busPIRone HCl [Buspar] 5 mg PO DAILY 08/13/18 10/28/19 Atorvastatin Calcium [Lipitor] 10 mg PO HS 09/05/18 10/28/19 risperiDONE [RisperDAL] 1 mg PO HS 09/05/18 10/28/19 Omeprazole 20 mg PO DAILY 10/15/18 10/28/19 Carvedilol 25 mg PO BID 12/26/18 10/28/19 Cranberry Fruit Concentrate [Azo 250 mg PO DAILY 12/26/18 10/28/19 Cranberry] Co-Q10 10 mg PO DAILY 07/09/19 10/28/19 Acetaminophen [Tylenol] 325 mg PO Q4H PRN 10/24/19 10/28/19 Lacosamide [Vimpat] 150 mg PO BID 10/24/19 10/28/19 levETIRAcetam [Keppra] 500 mg PO BID 10/24/19 10/28/19 Aspirin EC [Ecotrin Low Dose] 81 mg PO DAILY 10/28/19 10/28/19 Empagliflozin [Jardiance] 10 mg PO DAILY 10/28/19 10/28/19 Tolterodine Tartrate [Detrol LA] 4 mg PO HS 10/28/19 10/28/19 Allergies Allergy/AdvReac Type Severity Reaction Status Date / Time Sulfa (Sulfonamide Allergy Unknown Unknown Verified 10/28/19 19:15 Antibiotics) egg AdvReac Diarrhea Verified 10/28/19 19:15 solifenacin [From Vesicare] AdvReac Confusion/s Verified 10/28/19 19:15 lindsey Review of Systems ROS Statement: Those systems with pertinent positive or pertinent negative responses have been documented in the HPI. ROS Other: All systems not noted in ROS Statement are negative. 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 History of Any Multi-Drug Resistant Organisms: CRE, MRSA Date of last positivie culture/infection: 08/13/18 MDRO Source:: urine. e coli,mrsa Past Surgical History: Hysterectomy Additional Past Surgical History / Comment(s): Total hysterectomy, right hip arthroplasty, laser surgery of the right eye of her bleeding, bladder suspension, right elbow metal plate , gamma knife procedure for meningoma lt side of brain 03-11-17 Past Anesthesia/Blood Transfusion Reactions: No Reported Reaction Past Psychological History: Anxiety, Bipolar, Depression Smoking Status: Former smoker Past Alcohol Use History: None Reported Past Drug Use History: None Reported - Past Family History Father Family Medical History: No Reported History Additional Family Medical History / Comment(s): Father is alive in his 80s and is a smoker. Patient does not know his medical history. Mother Family Medical History: No Reported History Additional Family Medical History / Comment(s): Mother at age 79 from Alzheimer's dementia. Sister(s) Family Medical History: Congestive Heart Failure (CHF) Additional Family Medical History / Comment(s): She has one sister that is from heart failure. Patient does not have any brothers. Patient has 2 daughters that are 45 and 42 years of age with no major medical problems. General Exam Limitations: altered mental status General appearance: alert, in no apparent distress Head exam: Present: atraumatic, normocephalic Eye exam: Present: normal appearance, PERRL, EOMI. Absent: scleral icterus, conjunctival injection, periorbital swelling ENT exam: Present: normal exam, mucous membranes moist Neck exam: Present: normal inspection. Absent: tenderness, meningismus, lymphadenopathy Respiratory exam: Present: normal lung sounds bilaterally. Absent: respiratory distress, wheezes, rales, rhonchi, stridor Cardiovascular Exam: Present: regular rate, normal rhythm, normal heart sounds. Absent: systolic murmur, diastolic murmur, rubs, gallop, clicks GI/Abdominal exam: Present: soft, normal bowel sounds. Absent: distended, tenderness, guarding, rebound, rigid Extremities exam: Present: other (no movement of the right lower extremity on presentation. 4/5 strength LLE at arrival) Neurological exam: Present: alert, other (confused. Oriented x 1) Course Vital Signs 10/24/19 10/24/19 10/24/19 14:05 14:20 14:35 Temperature 97.2 F L Pulse Rate 89 71 72 Respiratory 18 16 18 Rate Blood Pressure 141/79 142/98 144/103 O2 Sat by Pulse 96 98 98 Oximetry 10/24/19 10/24/19 10/24/19 14:41 15:00 15:30 Temperature Pulse Rate 75 71 71 Respiratory 19 15 16 Rate Blood Pressure 175/104 126/89 O2 Sat by Pulse 96 96 97 Oximetry 10/24/19 10/24/19 10/24/19 16:00 16:30 17:00 Temperature Pulse Rate 67 77 75 Respiratory 16 18 18 Rate Blood Pressure 162/127 145/82 O2 Sat by Pulse 96 91 L 94 L Oximetry 10/24/19 10/24/19 17:30 18:00 Temperature 98.2 F Pulse Rate 75 79 Respiratory 16 15 Rate Blood Pressure 134/81 O2 Sat by Pulse 91 L 93 L Oximetry EKG Findings - EKG Comments: EKG Findings:: EKG demonstrates a normal sinus rhythm with a ventricular rate of 68. [place] interval 178. QRS 156. QTC of 478. No acute ST segment elevations or depressions concerning for ischemic changes. There is a left bundle branch block present. Negative sgarbossa criteria Medical Decision Making - Medical Decision Making Upon arrival the patient was placed into trauma bay 1. We did obtain a quick history. NIH stroke scale is performed and the patient does have a score of 6. Because of this the patient is immediately sent over for CT brain and CT angiography of the head and neck. Discussed case with Dr. Dickerson at 2:19 and he does agree to these imaging studies. The patient is an return to the trauma bay. She is reevaluated and does have improvement in her lower extremity weakness. Dr. Hudson does return my call and states that he does not see a large vessel occlusion. He does use the stroke robot to evaluate the patient. The patient is able to lift both of her lower extremity off of the bed. She does remain slightly confused. We did discuss tPA administration with the patient's . Shared decision making is used and tPA will not be admi nistered because of her resolving symptoms. I did review the patient's laboratory studies which demonstrates a sodium of 134. The urinalysis is positive for nitrates, trace blood, 4+ glucose, 1+ ketones, large leukocyte esterase, greater than 182 white blood cells and many white blood cell counts. A culture was obtained the patient was given a dose of Rocephin and she has previously sensitive to this on her previous urine cultures. I called and discussed the case with Dr. Esteves accepted admission for the patient as long as they are aware that we did not have on-site neurology tonight. I did discuss this with the patient and her . They were understanding of the risks of remaining hospitalized at our facility and the need for possible transfer at a later time should any complications arise. Because of their agreement I did place admission orders. The patient is currently awaiting a bed - Lab Data Result diagrams: 10/25/19 05:26 10/25/19 05:26 Lab Results 10/24/19 10/24/19 10/24/19 Range/Units 14:30 14:35 15:00 WBC 6.8 (3.8-10.6) k/uL RBC 4.44 (3.80-5.40) m/uL Hgb 13.1 (11.4-16.0) gm/dL Hct 39.4 (34.0-46.0) % MCV 88.9 (80.0-100.0) fL MCH 29.6 (25.0-35.0) pg MCHC 33.3 (31.0-37.0) g/dL RDW 12.6 (11.5-15.5) % Plt Count 211 (150-450) k/uL Neutrophils % 71 % Lymphocytes % 17 % Monocytes % 6 % Eosinophils % 2 % Basophils % 2 % Neutrophils # 4.8 (1.3-7.7) k/uL Lymphocytes # 1.1 (1.0-4.8) k/uL Monocytes # 0.4 (0-1.0) k/uL Eosinophils # 0.1 (0-0.7) k/uL Basophils # 0.1 (0-0.2) k/uL PT (9.0-12.0) sec INR (<1.2) APTT (22.0-30.0) sec Sodium (137-145) mmol/L Potassium (3.5-5.1) mmol/L Chloride (98-107) mmol/L Carbon Dioxide (22-30) mmol/L Anion Gap mmol/L BUN (7-17) mg/dL Creatinine (0.52-1.04) mg/dL Est GFR (CKD-EPI)AfAm (>60 ml/min/1.73 sqM) Est GFR (CKD-EPI)NonAf (>60 ml/min/1.73 sqM) Glucose (74-99) mg/dL POC Glucose (mg/dL) 123 H (75-99) mg/dL POC Glu [employer] ID Hayley Woodall Plasma Lactic Acid Rony (0.7-2.0) mmol/L Calcium (8.4-10.2) mg/dL Total Bilirubin (0.2-1.3) mg/dL AST (14-36) U/L ALT (4-34) U/L Alkaline Phosphatase (38-126) U/L Troponin I (0.000-0.034) ng/mL Total Protein (6.3-8.2) g/dL Albumin (3.5-5.0) g/dL Triglycerides (<150) mg/dL Cholesterol (<200) mg/dL LDL Cholesterol, Calc (0-99) mg/dL HDL Cholesterol (40-60) mg/dL Urine Color Yellow Urine Appearance Turbid H (Clear) Urine pH 6.0 (5.0-8.0) Ur Specific [place] 1.025 (1.001-1.035) Urine Protein Trace H (Negative) Urine Glucose (UA) 4+ H (Negative) Urine Ketones 1+ H (Negative) Urine Blood Trace H (Negative) Urine Nitrite Positive H (Negative) Urine Bilirubin Negative (Negative) Urine Urobilinogen <2.0 (<2.0) mg/dL Ur Leukocyte Esterase Large H (Negative) Urine RBC 7 H (0-5) /hpf Urine WBC >182 H (0-5) /hpf Urine WBC Clumps Many H (None) /hpf Ur Squamous Epith Cells <1 (0-4) /hpf Urine Bacteria Many H (None) /hpf Urine Mucus Occasional H (None) /hpf 10/24/19 10/24/19 10/24/19 Range/Units 15:13 15:13 15:13 WBC (3.8-10.6) k/uL RBC (3.80-5.40) m/uL Hgb (11.4-16.0) gm/dL Hct (34.0-46.0) % MCV (80.0-100.0) fL MCH (25.0-35.0) pg MCHC (31.0-37.0) g/dL RDW (11.5-15.5) % Plt Count (150-450) k/uL Neutrophils % % Lymphocytes % % Monocytes % % Eosinophils % % Basophils % % Neutrophils # (1.3-7.7) k/uL Lymphocytes # (1.0-4.8) k/uL Monocytes # (0-1.0) k/uL Eosinophils # (0-0.7) k/uL Basophils # (0-0.2) k/uL PT 10.2 (9.0-12.0) sec INR 1.0 (<1.2) APTT 20.7 L (22.0-30.0) sec Sodium 134 L (137-145) mmol/L Potassium 4.4 (3.5-5.1) mmol/L Chloride 104 (98-107) mmol/L Carbon Dioxide 22 (22-30) mmol/L Anion Gap 8 mmol/L BUN 24 H (7-17) mg/dL Creatinine 0.50 L (0.52-1.04) mg/dL Est GFR (CKD-EPI)AfAm >90 (>60 ml/min/1.73 sqM) Est GFR (CKD-EPI)NonAf >90 (>60 ml/min/1.73 sqM) Glucose 107 H (74-99) mg/dL POC Glucose (mg/dL) (75-99) mg/dL POC Glu [employer] ID Plasma Lactic Acid Rony (0.7-2.0) mmol/L Calcium 9.4 (8.4-10.2) mg/dL Total Bilirubin 0.7 (0.2-1.3) mg/dL AST 35 (14-36) U/L ALT 31 (4-34) U/L Alkaline Phosphatase 123 (38-126) U/L Troponin I <0.012 (0.000-0.034) ng/mL Total Protein 7.2 (6.3-8.2) g/dL Albumin 4.1 (3.5-5.0) g/dL Triglycerides (<150) mg/dL Cholesterol (<200) mg/dL LDL Cholesterol, Calc (0-99) mg/dL HDL Cholesterol (40-60) mg/dL Urine Color Urine Appearance (Clear) Urine pH (5.0-8.0) Ur Specific [place] (1.001-1.035) Urine Protein (Negative) Urine Glucose (UA) (Negative) Urine Ketones (Negative) Urine Blood (Negative) Urine Nitrite (Negative) Urine Bilirubin (Negative) Urine Urobilinogen (<2.0) mg/dL Ur Leukocyte Esterase (Negative) Urine RBC (0-5) /hpf Urine WBC (0-5) /hpf Urine WBC Clumps (None) /hpf Ur Squamous Epith Cells (0-4) /hpf Urine Bacteria (None) /hpf Urine Mucus (None) /hpf 10/24/19 10/25/19 10/25/19 Range/Units 21:20 00:04 00:39 WBC (3.8-10.6) k/uL RBC (3.80-5.40) m/uL Hgb (11.4-16.0) gm/dL Hct (34.0-46.0) % MCV (80.0-100.0) fL MCH (25.0-35.0) pg MCHC (31.0-37.0) g/dL RDW (11.5-15.5) % Plt Count (150-450) k/uL Neutrophils % % Lymphocytes % % Monocytes % % Eosinophils % % Basophils % % Neutrophils # (1.3-7.7) k/uL Lymphocytes # (1.0-4.8) k/uL Monocytes # (0-1.0) k/uL Eosinophils # (0-0.7) k/uL Basophils # (0-0.2) k/uL PT (9.0-12.0) sec INR (<1.2) APTT (22.0-30.0) sec Sodium (137-145) mmol/L Potassium (3.5-5.1) mmol/L Chloride (98-107) mmol/L Carbon Dioxide (22-30) mmol/L Anion Gap mmol/L BUN (7-17) mg/dL Creatinine (0.52-1.04) mg/dL Est GFR (CKD-EPI)AfAm (>60 ml/min/1.73 sqM) Est GFR (CKD-EPI)NonAf (>60 ml/min/1.73 sqM) Glucose (74-99) mg/dL POC Glucose (mg/dL) 94 169 H (75-99) mg/dL POC Glu [employer] Lashawn Coffey Nichole Plasma Lactic Acid Rony 1.0 (0.7-2.0) mmol/L Calcium (8.4-10.2) mg/dL Total Bilirubin (0.2-1.3) mg/dL AST (14-36) U/L ALT (4-34) U/L Alkaline Phosphatase (38-126) U/L Troponin I (0.000-0.034) ng/mL Total Protein (6.3-8.2) g/dL Albumin (3.5-5.0) g/dL Triglycerides (<150) mg/dL Cholesterol (<200) mg/dL LDL Cholesterol, Calc (0-99) mg/dL HDL Cholesterol (40-60) mg/dL Urine Color Urine Appearance (Clear) Urine pH (5.0-8.0) Ur Specific [place] (1.001-1.035) Urine Protein (Negative) Urine Glucose (UA) (Negative) Urine Ketones (Negative) Urine Blood (Negative) Urine Nitrite (Negative) Urine Bilirubin (Negative) Urine Urobilinogen (<2.0) mg/dL Ur Leukocyte Esterase (Negative) Urine RBC (0-5) /hpf Urine WBC (0-5) /hpf Urine WBC Clumps (None) /hpf Ur Squamous Epith Cells (0-4) /hpf Urine Bacteria (None) /hpf Urine Mucus (None) /hpf 10/25/19 10/25/19 10/25/19 Range/Units 05:26 05:26 05:26 WBC 8.6 (3.8-10.6) k/uL RBC 4.22 (3.80-5.40) m/uL Hgb 12.5 (11.4-16.0) gm/dL Hct 37.5 (34.0-46.0) % MCV 88.8 (80.0-100.0) fL MCH 29.5 (25.0-35.0) pg MCHC 33.2 (31.0-37.0) g/dL RDW 12.6 (11.5-15.5) % Plt Count 232 (150-450) k/uL Neutrophils % 75 % Lymphocytes % 14 % Monocytes % 7 % Eosinophils % 2 % Basophils % 0 % Neutrophils # 6.4 (1.3-7.7) k/uL Lymphocytes # 1.2 (1.0-4.8) k/uL Monocytes # 0.6 (0-1.0) k/uL Eosinophils # 0.1 (0-0.7) k/uL Basophils # 0.0 (0-0.2) k/uL PT (9.0-12.0) sec INR (<1.2) APTT (22.0-30.0) sec Sodium 134 L (137-145) mmol/L Potassium 4.3 (3.5-5.1) mmol/L Chloride 103 (98-107) mmol/L Carbon Dioxide 22 (22-30) mmol/L Anion Gap 9 mmol/L BUN 25 H (7-17) mg/dL Creatinine 0.58 (0.52-1.04) mg/dL Est GFR (CKD-EPI)AfAm >90 (>60 ml/min/1.73 sqM) Est GFR (CKD-EPI)NonAf >90 (>60 ml/min/1.73 sqM) Glucose 93 (74-99) mg/dL POC Glucose (mg/dL) (75-99) mg/dL POC Glu [employer] ID Plasma Lactic Acid Rony (0.7-2.0) mmol/L Calcium 9.3 (8.4-10.2) mg/dL Total Bilirubin (0.2-1.3) mg/dL AST (14-36) U/L ALT (4-34) U/L Alkaline Phosphatase (38-126) U/L Troponin I (0.000-0.034) ng/mL Total Protein (6.3-8.2) g/dL Albumin (3.5-5.0) g/dL Triglycerides 134 (<150) mg/dL Cholesterol 147 (<200) mg/dL LDL Cholesterol, Calc 71 (0-99) mg/dL HDL Cholesterol 49 (40-60) mg/dL Urine Color Urine Appearance (Clear) Urine pH (5.0-8.0) Ur Specific [place] (1.001-1.035) Urine Protein (Negative) Urine Glucose (UA) (Negative) Urine Ketones (Negative) Urine Blood (Negative) Urine Nitrite (Negative) Urine Bilirubin (Negative) Urine Urobilinogen (<2.0) mg/dL Ur Leukocyte Esterase (Negative) Urine RBC (0-5) /hpf Urine WBC (0-5) /hpf Urine WBC Clumps (None) /hpf Ur Squamous Epith Cells (0-4) /hpf Urine Bacteria (None) /hpf Urine Mucus (None) /hpf 10/25/19 10/25/19 10/25/19 Range/Units 06:13 11:34 16:40 WBC (3.8-10.6) k/uL RBC (3.80-5.40) m/uL Hgb (11.4-16.0) gm/dL Hct (34.0-46.0) % MCV (80.0-100.0) fL MCH (25.0-35.0) pg MCHC (31.0-37.0) g/dL RDW (11.5-15.5) % Plt Count (150-450) k/uL Neutrophils % % Lymphocytes % % Monocytes % % Eosinophils % % Basophils % % Neutrophils # (1.3-7.7) k/uL Lymphocytes # (1.0-4.8) k/uL Monocytes # (0-1.0) k/uL Eosinophils # (0-0.7) k/uL Basophils # (0-0.2) k/uL PT (9.0-12.0) sec INR (<1.2) APTT (22.0-30.0) sec Sodium (137-145) mmol/L Potassium (3.5-5.1) mmol/L Chloride (98-107) mmol/L Carbon Dioxide (22-30) mmol/L Anion Gap mmol/L BUN (7-17) mg/dL Creatinine (0.52-1.04) mg/dL Est GFR (CKD-EPI)AfAm (>60 ml/min/1.73 sqM) Est GFR (CKD-EPI)NonAf (>60 ml/min/1.73 sqM) Glucose (74-99) mg/dL POC Glucose (mg/dL) 151 H 139 H 138 H (75-99) mg/dL POC Glu [employer] ID Lashawn Hong, Krystle Marsh Plasma Lactic Acid Rony (0.7-2.0) mmol/L Calcium (8.4-10.2) mg/dL Total Bilirubin (0.2-1.3) mg/dL AST (14-36) U/L ALT (4-34) U/L Alkaline Phosphatase (38-126) U/L Troponin I (0.000-0.034) ng/mL Total Protein (6.3-8.2) g/dL Albumin (3.5-5.0) g/dL Triglycerides (<150) mg/dL Cholesterol (<200) mg/dL LDL Cholesterol, Calc (0-99) mg/dL HDL Cholesterol (40-60) mg/dL Urine Color Urine Appearance (Clear) Urine pH (5.0-8.0) Ur Specific [place] (1.001-1.035) Urine Protein (Negative) Urine Glucose (UA) (Negative) Urine Ketones (Negative) Urine Blood (Negative) Urine Nitrite (Negative) Urine Bilirubin (Negative) Urine Urobilinogen (<2.0) mg/dL Ur Leukocyte Esterase (Negative) Urine RBC (0-5) /hpf Urine WBC (0-5) /hpf Urine WBC Clumps (None) /hpf Ur Squamous Epith Cells (0-4) /hpf Urine Bacteria (None) /hpf Urine Mucus (None) /hpf 10/25/19 10/26/19 Range/Units 20:54 06:12 WBC (3.8-10.6) k/uL RBC (3.80-5.40) m/uL Hgb (11.4-16.0) gm/dL Hct (34.0-46.0) % MCV (80.0-100.0) fL MCH (25.0-35.0) pg MCHC (31.0-37.0) g/dL RDW (11.5-15.5) % Plt Count (150-450) k/uL Neutrophils % % Lymphocytes % % Monocytes % % Eosinophils % % Basophils % % Neutrophils # (1.3-7.7) k/uL Lymphocytes # (1.0-4.8) k/uL Monocytes # (0-1.0) k/uL Eosinophils # (0-0.7) k/uL Basophils # (0-0.2) k/uL PT (9.0-12.0) sec INR (<1.2) APTT (22.0-30.0) sec Sodium (137-145) mmol/L Potassium (3.5-5.1) mmol/L Chloride (98-107) mmol/L Carbon Dioxide (22-30) mmol/L Anion Gap mmol/L BUN (7-17) mg/dL Creatinine (0.52-1.04) mg/dL Est GFR (CKD-EPI)AfAm (>60 ml/min/1.73 sqM) Est GFR (CKD-EPI)NonAf (>60 ml/min/1.73 sqM) Glucose (74-99) mg/dL POC Glucose (mg/dL) 155 H 149 H (75-99) mg/dL POC Glu [employer] ID Lashawn Hong Rainey, Candy Plasma Lactic Acid Rony (0.7-2.0) mmol/L Calcium (8.4-10.2) mg/dL Total Bilirubin (0.2-1.3) mg/dL AST (14-36) U/L ALT (4-34) U/L Alkaline Phosphatase (38-126) U/L Troponin I (0.000-0.034) ng/mL Total Protein (6.3-8.2) g/dL Albumin (3.5-5.0) g/dL Triglycerides (<150) mg/dL Cholesterol (<200) mg/dL LDL Cholesterol, Calc (0-99) mg/dL HDL Cholesterol (40-60) mg/dL Urine Color Urine Appearance (Clear) Urine pH (5.0-8.0) Ur Specific [place] (1.001-1.035) Urine Protein (Negative) Urine Glucose (UA) (Negative) Urine Ketones (Negative) Urine Blood (Negative) Urine Nitrite (Negative) Urine Bilirubin (Negative) Urine Urobilinogen (<2.0) mg/dL Ur Leukocyte Esterase (Negative) Urine RBC (0-5) /hpf Urine WBC (0-5) /hpf Urine WBC Clumps (None) /hpf Ur Squamous Epith Cells (0-4) /hpf Urine Bacteria (None) /hpf Urine Mucus (None) /hpf Critical Care Time Critical Care Time: Yes Critical Care Time: 35 mins Disposition Clinical Impression: Right leg weakness, TIA (transient ischemic attack), Urinary tract infection Disposition: ADMITTED IP TO THIS [facility] Condition: Stable Is patient prescribed a controlled substance at d/c from ED?: No Decision to Admit Reason: Admit from EC Decision Date: 10/24/19 Decision Time: 16:24
[2019-10-24 15:37] LABS: ALT 31 U/L (4-34); AST 35 U/L (14-36); African American GFR (CKD) >90 (>60 ml/min/1.73 sqM); Albumin 4.1 g/dL (3.5-5.0); Alkaline Phosphatase 123 U/L (38-126); Anion Gap 8 mmol/L; Blood Urea Nitrogen 24 mg/dL (7-17); Calcium 9.4 mg/dL (8.4-10.2); Carbon Dioxide 22 mmol/L (22-30); Chloride 104 mmol/L (98-107); Glucose 107 mg/dL (74-99); Non-African American GFR(CKD) >90 (>60 ml/min/1.73 sqM); Potassium 4.4 mmol/L (3.5-5.1); Sodium 134 mmol/L (137-145); Total Bilirubin 0.7 mg/dL (0.2-1.3); Total Protein 7.2 g/dL (6.3-8.2)
[2019-10-24 15:53] LABS: Partial Thromboplastin Time 20.7 sec (22.0-30.0); Prothrombin Time 10.2 sec (9.0-12.0)
[2019-10-24] MEDS ORDERED: cefTRIAXone IN SWFI 1,000 MG/10 ML SYRINGE IVP STA (16:17)
[2019-10-24] MEDS ORDERED: NALOXONE 0.4 MG/ML 1 ML VIAL IV PRN (16:24)
[2019-10-24] MEDS ORDERED: ONDANSETRON 4 MG/2 ML VIAL IVP STA (16:30)
[2019-10-24] MEDS ORDERED: ASPIRIN 325 MG TAB PO STA (16:32)
[2019-10-24] MEDS ORDERED: ACETAMINOPHEN TAB 325 MG TAB PO PRN (20:46)
[2019-10-24 21:21] LABS: Glucose,Whole Blood 94 mg/dL (75-99)
[2019-10-24] MEDS: SODIUM CHLORIDE 0.9% 1,000 ML IV SCH (22:06)
[2019-10-24] MEDS: levETIRAcetam 500 MG TAB PO SCH (22:07)
[2019-10-24] MEDS: busPIRone HCl 5 MG TAB PO SCH (22:07)
[2019-10-24] MEDS: MELATONIN 3 MG TABLET PO SCH (22:07)
[2019-10-24] MEDS: metFORMIN 500 MG TAB PO SCH (22:07)
[2019-10-24] MEDS: ATORVASTATIN 10 MG TAB PO SCH (22:07)
[2019-10-24] MEDS: LACOSAMIDE 150 MG TABLET PO SCH (22:07)
[2019-10-24] MEDS: risperiDONE 1 MG TAB PO SCH (22:08)
[2019-10-25] MEDS ORDERED: SODIUM CHLORIDE 0.9% 500 ML 500 ML IV ONE
[2019-10-25 00:05] LABS: Glucose,Whole Blood 169 mg/dL (75-99)
[2019-10-25] MEDS: SODIUM CHLORIDE 0.9% 1,000 ML IV SCH (06:11)
[2019-10-25 06:15] LABS: Glucose,Whole Blood 151 mg/dL (75-99)
[2019-10-25 06:18] LABS: Basophils % (A) 0 %; Eosinophils # (A) 0.1 k/uL (0-0.7); Eosinophils % (A) 2 %; HCT 37.5 % (34.0-46.0); HGB 12.5 gm/dL (11.4-16.0); Lymphocytes # (A) 1.2 k/uL (1.0-4.8); Lymphocytes % (A) 14 %; MCH 29.5 pg (25.0-35.0); MCHC 33.2 g/dL (31.0-37.0); MCV 88.8 fL (80.0-100.0); Mean Platelet Volume 7.1; Monocytes # (A) 0.6 k/uL (0-1.0); Monocytes % (A) 7 %; Neutrophils # (A) 6.4 k/uL (1.3-7.7); Neutrophils % (A) 75 %; Platelet Count 232 k/uL (150-450); RBC 4.22 m/uL (3.80-5.40); RDW 12.6 % (11.5-15.5); WBC 8.6 k/uL (3.8-10.6)
[2019-10-25 06:30] LABS: African American GFR (CKD) >90 (>60 ml/min/1.73 sqM); Anion Gap 9 mmol/L; Blood Urea Nitrogen 25 mg/dL (7-17); Calcium 9.3 mg/dL (8.4-10.2); Carbon Dioxide 22 mmol/L (22-30); Chloride 103 mmol/L (98-107); Glucose 93 mg/dL (74-99); Non-African American GFR(CKD) >90 (>60 ml/min/1.73 sqM); Potassium 4.3 mmol/L (3.5-5.1); Sodium 134 mmol/L (137-145)
[2019-10-25 08:18] LABS: Cholesterol 147 mg/dL (<200); HDL Cholesterol 49 mg/dL (40-60); LDL Cholesterol,Calculated 71 mg/dL (0-99); Triglycerides 134 mg/dL (<150)
[2019-10-25] MEDS ORDERED: CRANBERRY FRUIT 250 MG PO SCH (09:00)
[2019-10-25] MEDS ORDERED: COENZYME Q10 10 MG PO SCH (09:00)
[2019-10-25] MEDS: LACOSAMIDE 150 MG TABLET PO SCH ×2 (09:13→20:48)
[2019-10-25] MEDS: ASPIRIN 81 MG PO SCH (09:14)
[2019-10-25] MEDS: busPIRone HCl 5 MG TAB PO SCH ×2 (09:14→20:45)
[2019-10-25] MEDS: CHOLECALCIFEROL 1,000 UNIT TAB PO SCH (09:14)
[2019-10-25] MEDS: levETIRAcetam 500 MG TAB PO SCH ×2 (09:14→20:42)
[2019-10-25] MEDS: MULTIVITAMINS, THERA 1 EACH TAB PO SCH (09:14)
[2019-10-25] MEDS: ANASTROZOLE 1 MG TAB PO SCH (09:15)
[2019-10-25] MEDS: PANTOPRAZOLE 40 MG TABLET PO SCH (09:15)
[2019-10-25] MEDS: CYANOCOBALAMIN 500 MCG TAB PO SCH (09:16)
[2019-10-25] MEDS: metFORMIN 500 MG TAB PO SCH ×2 (09:17→20:42)
[2019-10-25] MEDS: CARVEDILOL 12.5 MG TAB PO SCH ×2 (09:29→18:49)
[2019-10-25] MEDS: NON FORMULARY DRUG (Empagliflozin [Jardiance] 25 MG) PO SCH (09:29)
[2019-10-25 11:36] LABS: Glucose,Whole Blood 139 mg/dL (75-99)
--- NOTE | 2019-10-25 12:33 | P.CNNES ---
History of Present Illness Consult date: 10/25/19 Requesting physician: Scarlet Montez Reason for Consult: Possible TIA History of Present Illness: Patient is a 74-year-old female with previous history of CVA, intracranial bleed, meningioma, status post gamma knife and seizure disorder, who presents to the ER with strokelike symptoms. Patient probably has vascular dementia, not able to provide any history. According to electronic medical records, patient normally ambulates unassisted. Her noted yesterday that she was having difficulty ambulating due to weakness in her lower extremities. The right lower extremity was completely flaccid. Patient was also having some confusion. She is usually alert and oriented 2, which is her baseline. Orientation was not any further worse. Patient apparently is being treated for possible UTI with antibiotic as an outpatient. Patient denies any chest pain, shortness of breath, abdominal pain. Patient had EKG which shows normal sinus rhythm, left axis deviation, left bundle branch block. Chest x-ray showed calcified pleural plaquing suggesting prior asbestosis exposure. Chronic interstitial lung changes with no new focal consolidation, pleural effusion or pneumothorax. Mediastinal widening is somew hat similar to prior and could related to thoracic unfolding, patient positioning or aneurysm. Computed tomography scan head showed chronic findings with no acute intracranial process. CTA of head and neck showed no major arterial occlusion, dissection, no gross evidence of aneurysmal outpouching given the limitation of motion artifact in the head or neck. Patient also has history of seizure disorder. Patient is currently on Keppra 1000 mg twice a day. Patient's last EEG from 06/07/2019 showed abnormal EEG with excessive background slowing that can be seen in cerebral dysfunction of any cause and can be consistent with metabolic encephalopathy. No epileptiform activity was seen. Another EEG from 06/08/2018 showed occasional sharp wave activity seen in the right temporal region consistent with a reduced seizure threshold. Review of Systems Denies headache. Patient not able to provide any detailed history. 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 History of Any Multi-Drug Resistant Organisms: CRE, MRSA Date of last positivie culture/infection: 08/13/18 MDRO Source:: urine. e coli,mrsa Past Surgical History: Hysterectomy Additional Past Surgical History / Comment(s): Total hysterectomy, right hip arthroplasty, laser surgery of the right eye of her bleeding, bladder suspension, right elbow metal plate , gamma knife procedure for meningoma lt side of brain 03-11-17 Past Anesthesia/Blood Transfusion Reactions: No Reported Reaction Smoking Status: Former smoker - Past Family History Father Family Medical History: No Reported History Additional Family Medical History / Comment(s): Father is alive in his 80s and is a smoker. Patient does not know his medical history. Mother Family Medical History: No Reported History Additional Family Medical History / Comment(s): Mother at age 79 from Alzheimer's dementia. Sister(s) Family Medical History: Congestive Heart Failure (CHF) Additional Family Medical History / Comment(s): She has one sister that is from heart failure. Patient does not have any brothers. Patient has 2 daughters that are 45 and 42 years of age with no major medical problems. Medications and Allergies Home Medications Medication Instructions Recorded Confirmed Type Anastrozole [Arimidex] 1 mg PO DAILY 12/22/16 10/24/19 History Aspirin 81 mg PO DAILY chew 07/23/17 10/24/19 Rx Melatonin 3 mg PO HS 10/13/17 10/24/19 History Cholecalciferol [Vitamin D3 (25 1,000 unit PO DAILY 06/05/18 10/24/19 History Mcg = 1000 Iu)] Cyanocobalamin (Vitamin B-12) 1,000 mcg PO DAILY 06/05/18 10/24/19 History [Vitamin B-12] Multivitamins, Thera [Multivitamin 1 tab PO DAILY 06/05/18 10/24/19 History (formulary)] busPIRone HCl [Buspar] 10 mg PO HS 06/05/18 10/24/19 History metFORMIN HCL [Glucophage] 500 mg PO BID 06/06/18 10/24/19 History busPIRone HCl [Buspar] 5 mg PO DAILY 08/13/18 10/24/19 History Atorvastatin Calcium [Lipitor] 10 mg PO HS 09/05/18 10/24/19 History risperiDONE [RisperDAL] 1 mg PO HS 09/05/18 10/24/19 History Omeprazole 20 mg PO DAILY 10/15/18 10/24/19 History Carvedilol 25 mg PO BID 12/26/18 10/24/19 History Cranberry Fruit Concentrate [Azo 250 mg PO DAILY 12/26/18 10/24/19 History Cranberry] Co-Q10 10 mg PO DAILY 07/09/19 10/24/19 History Acetaminophen [Tylenol] 325 mg PO Q4H PRN 10/24/19 10/24/19 History Empagliflozin [Jardiance] 25 mg PO DAILY 10/24/19 10/24/19 History Lacosamide [Vimpat] 150 mg PO BID 10/24/19 10/24/19 History levETIRAcetam [Keppra] 500 mg PO BID 10/24/19 10/24/19 History Allergies Allergy/AdvReac Type Severity Reaction Status Date / Time Sulfa (Sulfonamide Allergy Unknown Unknown Verified 07/09/19 16:15 Antibiotics) egg AdvReac Diarrhea Verified 07/09/19 16:15 solifenacin [From Vesicare] AdvReac Confusion/s Verified 07/09/19 16:15 haking Physical Examination - Vital Signs Vital Signs: Vital Signs Temp Pulse Pulse Pulse Resp BP BP 10/25/19 09:09 97.6 F 76 20 113/60 10/25/19 08:00 84 76 20 10/25/19 04:00 97.2 F L 72 18 96/51 10/25/19 01:55 88 92/49 10/25/19 01:30 81 98/49 10/25/19 01:00 82 103/55 10/25/19 00:30 83 104/55 10/25/19 00:00 97.1 F L 86 18 74/33 10/24/19 20:00 98.4 F 84 84 16 150/88 10/24/19 18:00 79 15 10/24/19 17:30 98.2 F 75 16 134/81 10/24/19 17:00 75 18 145/82 10/24/19 16:30 77 18 10/24/19 16:00 67 16 162/127 10/24/19 15:30 71 16 126/89 10/24/19 15:00 71 15 175/104 10/24/19 14:41 75 19 10/24/19 14:35 72 18 144/103 10/24/19 14:20 71 16 142/98 10/24/19 14:05 97.2 F L 89 18 141/79 BP Pulse Ox 10/25/19 09:09 96 10/25/19 08:00 10/25/19 04:00 96 10/25/19 01:55 94 L 10/25/19 01:30 10/25/19 01:00 10/25/19 00:30 10/25/19 00:00 85/53 92 L 10/24/19 20:00 95 10/24/19 18:00 93 L 10/24/19 17:30 91 L 10/24/19 17:00 94 L 10/24/19 16:30 91 L 10/24/19 16:00 96 10/24/19 15:30 97 10/24/19 15:00 96 10/24/19 14:41 96 10/24/19 14:35 98 10/24/19 14:20 98 10/24/19 14:05 96 Intake and Output 10/24/19 10/25/19 10/25/19 22:59 06:59 14:59 Intake Total 360 Balance 360 Intake: Oral 360 Other: Voiding Method Toilet Toilet Toilet Diaper Diaper Diaper Incontinent Incontinent Incontinent # Voids 0 2 2 Weight 68.039 kg 65.3 kg On examination patient is an elderly female, laying comfortably in the bed. Patient knows her name, could not tell her age. Patient could not tell what month or year is it or what city and state she is in. She could not tell name of the current president, although perseverates on "[place]". Patient's comprehension is affected. Speech is limited, but is clear with no dysarthria. Patient can name objects although has very slow latency time to answer questions. Patient can name and repeat. On cranial nerve examination pupils are round and reacting, visual sanders appears full although patient has possible mild right lower visual field deficit. Face has very mild right-sided asymmetry and tongue protrudes the midline. Patient is trying to eat, and is trying to drink milk from the carton, although there is straw pr esent inside, spilling milk on her chest. Patient has significant apraxia, not able to use the straw. On muscle strength testing, patient's core cleaner is slightly decreased, slightly spastic on the right. Her right leg also appears slightly weaker as compared to the left She did not cooperate well. She wiggles her feet bilaterally. Bilateral Babinski. Sensory cerebellar functions could not be tested. Results Patient's total cholesterol is 147, LDL 71, triglycerides 134, HDL 49. Patient's last hemoglobin A1c 6.2 on 10/29/2018. Patient's B12 is 941 on 06/07/2019, homocystine 9.84 normal, thyroid functions normal. - Laboratory Findings CBC and BMP: 10/25/19 05:26 10/25/19 05:26 Abnormal Lab Findings: Abnormal Labs 10/24/19 10/24/19 10/24/19 14:35 15:00 15:13 APTT 20.7 L Sodium BUN Creatinine Glucose POC Glucose (mg/dL) 123 H Urine Appearance Turbid H Urine Protein Trace H Urine Glucose (UA) 4+ H Urine Ketones 1+ H Urine Blood Trace H Urine Nitrite Positive H Ur Leukocyte Esterase Large H Urine RBC 7 H Urine WBC >182 H Urine WBC Clumps Many H Urine Bacteria Many H Urine Mucus Occasional H 10/24/19 10/25/19 10/25/19 15:13 00:04 05:26 APTT Sodium 134 L 134 L BUN 24 H 25 H Creatinine 0.50 L Glucose 107 H POC Glucose (mg/dL) 169 H Urine Appearance Urine Protein Urine Glucose (UA) Urine Ketones Urine Blood Urine Nitrite Ur Leukocyte Esterase Urine RBC Urine WBC Urine WBC Clumps Urine Bacteria Urine Mucus 10/25/19 06:13 APTT Sodium BUN Creatinine Glucose POC Glucose (mg/dL) 151 H Urine Appearance Urine Protein Urine Glucose (UA) Urine Ketones Urine Blood Urine Nitrite Ur Leukocyte Esterase Urine RBC Urine WBC Urine WBC Clumps Urine Bacteria Urine Mucus Assessment and Plan Assessment: * 74-year-old female with previous history of CVA, meningioma, came with increased difficulty with ambulation and lower extremity weakness. Patient has baseline cognitive impairment, rule out CVA. * History of cerebral meningioma, status post gamma knife. * History of CVA/intracranial hemorrhage in 2015 * History of seizure disorder * Vascular dementia Plan: * MRI of the brain to evaluate for an acute stroke. * Patient's CTA of head and neck showed no large vessel stenosis/occlusion. * Patient's diabetes, lipids are well controlled. * Continue aspirin for now. Continue Keppra. * We will check 2-D echo to rule out any embolic source.
[2019-10-25 16:41] LABS: Glucose,Whole Blood 138 mg/dL (75-99)
--- NOTE | 2019-10-25 19:00 | ECHOF ---
Referral Reason:CVA versus TIA MEASUREMENTS -------- HEIGHT: 162.6 cm WEIGHT: 64.9 kg BP: RVIDd: 2.5 cm (< 3.3) IVSd: 1.2 cm (0.6 - 1.1) LVIDd: 3.8 cm (3.9 - 5.3) LVPWd: 1.3 cm (0.6 - 1.1) IVSs: 1.6 cm LVIDs: 2.7 cm LVPWs: 1.4 cm LA Diam: 3.3 cm (2.7 - 3.8) LAESV Index (A-L): 28.51 ml/m Ao Diam: 3.6 cm (2.0 - 3.7) AV Cusp: 1.9 cm (1.5 - 2.6) MV EXCURSION: 9.718 mm (> 18.000) MV EF SLOPE: 33 mm/s (70 - 150) EPSS: 1.5 cm MV E Jason: 0.73 m/s MV DecT: 355 ms MV A Jason: 0.94 m/s MV E/A Ratio: 0.78 RAP: 5.00 mmHg RVSP: 22.12 mmHg FINDINGS -------- Sinus rhythm. This was a technically adequate study. The left ventricular size is normal. There is mild concentric left ventricular hypertrophy. Overa ll left ventricular systolic function is normal with, an EF between 60 - 65 %. The right ventricle is normal in size. Normal LA size by volume 22+/-6 ml/m2. The right atrium is normal in size. Interatrial and interventricular septum intact. The aortic valve is trileaflet and appears structurally normal. Mild mitral annular calcification present. Mild tricuspid regurgitation present. Right ventricular systolic pressure is normal at < 35 mmHg. The pulmonic valve was not well visualized. The aortic root size is normal. Normal inferior vena cava with normal inspiratory collapse consistent with estimated right atrial pre ssure of 5 mmHg. There is no pericardial effusion. CONCLUSIONS -------- 1. Sinus rhythm. 2. This was a technically adequate study. 3. The left ventricular size is normal. 4. There is mild concentric left ventricular hypertrophy. 5. Overall left ventricular systolic function is normal with, an EF between 60 - 65 %. 6. The right ventricle is normal in size. 7. Normal LA size by volume 22+/-6 ml/m2. 8. The right atrium is normal in size. 9. Interatrial and interventricular septum intact. 10. The aortic valve is trileaflet and appears structurally normal. 11. Mild mitral annular calcification present. 12. Mild tricuspid regurgitation present. 13. Right ventricular systolic pressure is normal at < 35 mmHg. 14. The pulmonic valve was not well visualized. 15. The aortic root size is normal. 16. Normal inferior vena cava with normal inspiratory collapse consistent with estimated right atrial pressure of 5 mmHg. 17. There is no pericardial effusion. INFRASTRUCTURE ADMINISTRATOR: Dilcia Hu RDCS
[2019-10-25] MEDS: MELATONIN 3 MG TABLET PO SCH (20:42)
[2019-10-25] MEDS: ATORVASTATIN 10 MG TAB PO SCH (20:42)
[2019-10-25] MEDS: risperiDONE 1 MG TAB PO SCH (20:46)
[2019-10-25 20:55] LABS: Glucose,Whole Blood 155 mg/dL (75-99)
[2019-10-26] MEDS: CARVEDILOL 12.5 MG TAB PO SCH ×2 (06:20→16:51)
[2019-10-26 06:30] LABS: Glucose,Whole Blood 149 mg/dL (75-99)
[2019-10-26 07:54] VITALS: RESP 16
[2019-10-26] MEDS: busPIRone HCl 5 MG TAB PO SCH ×2 (07:55→19:47)
[2019-10-26] MEDS: LACOSAMIDE 150 MG TABLET PO SCH ×2 (07:56→19:48)
[2019-10-26] MEDS: ASPIRIN 81 MG PO SCH (07:56)
[2019-10-26] MEDS: levETIRAcetam 500 MG TAB PO SCH ×2 (07:56→19:48)
[2019-10-26] MEDS: PANTOPRAZOLE 40 MG TABLET PO SCH (07:57)
[2019-10-26] MEDS: MULTIVITAMINS, THERA 1 EACH TAB PO SCH (07:57)
[2019-10-26] MEDS: CHOLECALCIFEROL 1,000 UNIT TAB PO SCH (07:57)
[2019-10-26] MEDS: CYANOCOBALAMIN 500 MCG TAB PO SCH (07:57)
[2019-10-26] MEDS: ANASTROZOLE 1 MG TAB PO SCH (07:57)
[2019-10-26] MEDS: metFORMIN 500 MG TAB PO SCH ×2 (08:01→19:47)
[2019-10-26] MEDS: NON FORMULARY DRUG (Empagliflozin [Jardiance] 25 MG) PO SCH (08:16)
[2019-10-26 11:48] LABS: Glucose,Whole Blood 175 mg/dL (75-99)
--- NOTE | 2019-10-26 12:51 | MR ---
MR brain without contrast HISTORY: Cerebral vascular accident Multiplanar multisequence imaging through the brain and correlated to prior brain MR 01/26/2019 There is cortical atrophy present. No restricted diffusion is present. Encephalomalacia with abnormal signal is stable in the left parietal cortex. White matter signal changes are similar to prior exam on inversion recovery and T2-weighted sequences, gliosis at the site of patient's previous infarct in the left may be improved slightly. There is no hemorrhage or hydrocephalus. Cerebellopontine angle m ass is isointense and T2 weighted sequences, stable on T1, inversion recovery measuring approximately 1.5 cm in greatest dimension by approximately 1 cm in transverse dimension. There are normal vascula r flow voids. Internal auditory canals, corpus callosum, pituitary show a stable appearance. IMPRESSION: Essentially stable brain MRI. No subacute ischemia evident.
--- NOTE | 2019-10-26 15:05 | P.PN ---
Subjective Progress Note Date: 10/26/19 Patient is alert and awake, pleasantly confused. Patient states "I'm feeling well thank you". Patient offers no complaints. Objective - Vital Signs Vital signs: Vital Signs Temp 97.5 F L 10/26/19 13:20 Pulse 74 10/26/19 13:20 Resp 16 10/26/19 13:20 BP 124/67 10/26/19 13:20 Pulse Ox 97 10/26/19 13:20 Intake & Output 10/25/19 10/26/19 10/26/19 18:59 06:59 18:59 Intake Total 960 600 Balance 960 600 Weight 66.4 kg Intake: Oral 960 600 Other: Voiding Method Toilet Toilet Toilet Diaper Diaper Diaper Incontinent Incontinent Incontinent # Voids 2 1 1 - Exam Patient is alert and awake, very pleasant, smiling. Patient states the month is January, could not tell the current year. She states Mr. Cancino is a current president. She states she is 34 years of age. She can name a pen. She perseverates. Rest of the examination is unchanged. - Labs CBC & Chem 7: 10/25/19 05:26 10/25/19 05:26 Labs: Abnormal Lab Results - Last 24 Hours (Table) 10/25/19 10/25/19 10/26/19 Range/Units 16:40 20:54 06:12 POC Glucose (mg/dL) 138 H 155 H 149 H (75-99) mg/dL 10/26/19 Range/Units 11:46 POC Glucose (mg/dL) 175 H (75-99) mg/dL Microbiology - Last 24 Hours (Table) 10/24/19 18:22 Blood Culture - Preliminary Blood No Growth after 24 hours 10/24/19 15:00 Urine Culture - Preliminary Urine,Voided Gram Neg Bacilli Strep agalactiae - (group b) Assessment and Plan Assessment: * 74-year-old female with previous history of CVA, meningioma, came with inc reased difficulty with ambulation and lower extremity weakness. Patient has baseline cognitive impairment. CVA ruled out with MRI. * History of cerebral meningioma, status post gamma knife. * History of CVA/intracranial hemorrhage in 2015 * History of seizure disorder * Vascular dementia Plan: * MRI of the brain negative for an acute stroke. * Patient's CTA of head and neck showed no large vessel stenosis/occlusion. * Patient's diabetes, lipids are well controlled. * Continue aspirin for now. Continue Keppra. * 2-D echo revealed ejection fraction 60-65%. Normal left atrial size. No obvious embolic source. * Patient is neurologically clear for discharge.
[2019-10-26] MEDS: SODIUM CHLORIDE 0.9% 1,000 ML IV SCH (16:51)
[2019-10-26 16:55] LABS: Glucose,Whole Blood 132 mg/dL (75-99)
--- NOTE | 2019-10-26 17:54 | P.HPIM ---
History of Present Illness H&P Date: 10/25/19 Chief Complaint: Right leg weakness History of presenting complaint: This is a 74-year-old patient of Dr. Hunt. Chronic stable medical conditions include essential hypertension, meningioma treated with, knife, seizure, diabetes mellitus type 2, hyperlipidemia, GERD, history of intracranial bleed in July 2015, overactive bladder, moderate to severe cognitive impairment multifactorial. Patient not able to give any history is smiling sitting up and not making much sense to the words are clear. Normally patient is able to get about. Was brought in by the to the ER patient is not able to walk. Especially noted to be weak in the right leg. Patient likes still does not able to give any history. Denies any pain. Initial workup in the ER was negative. Neurology was consulted. Denies any back pain. Review of systems: Cannot be obtained as patient is pleasantly confused Past medical history to include: Essential hypertension, meningioma treated with, knife, diabetes mellitus type 2, hyperlipidemia, GERD, history of intracranial bleed in July 2015, overactive bladder, moderate to severe cognitive impairment, breast cancer, bipolar and psychosis Social history: Patient smoked for about 6 years and stopped in 1979. Does use a cane. Lives with her . Physical examination: VITAL SIGNS: 97.2-18-141/79-96% on room air GENERAL: BMI 24.7, laying in bed awake smiling. EYES: Pupils equal. Conjunctiva normal. HEENT: External appearance of nose and ears normal, oral cavity grossly normal. NECK: JVD not raised; masses not palpable. HEART: First and second heart sounds are normal; no edema. LUNGS: Respiratory rate normal; clear to auscultation. ABDOMEN: Soft, nontender, liver spleen not palpable, no masses palpable. PSYCH: [Patient not answering questions though smiling and talking what ever she likes l. NEUROLOGICAL: [Cranial nerves grossly intact; no facial asymmetry, difficult to elicit neuro exam only follows occasional commands. Right leg does appear to be weak compared to his left leg. Reflexes are eequivocal LYMPHATICS: No lymph nodes palpable in the axilla and neck INVESTIGATIONS, reviewed in the clinical context: White count 8.6 hemoglobin 12.5 platelets 232 potassium 4.3 creatinine 0.58 EKG tracing personally reviewed by me-left bundle branch block Computed tomography scan of the brain-chronic changes CT angiogram to brain-1.3 mm meningioma at the less cerebellopontine junction Assessment: --Possible stroke affecting the right leg. Though currently not showing up on the computed tomography scan. Will need further imaging. -Essential hypertension -Chronic seizure disorder -Diabetes mellitus type 2 -Hyperlipidemia -GERD -History of intracranial bleed in July 2015 -Overactive bladder -Moderate to severe cognitive impairment -Bipolar disorder Plan: -Home medications resumed. Neurology was consulted. Neuro checks are in place. Continue with aspirin, increase Lipitor to 40 mg. Lovenox for DVT prophylaxis. Other home medications to continue. Continue no family the bedsi de. 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 History of Any Multi-Drug Resistant Organisms: CRE, MRSA Date of last positivie culture/infection: 08/13/18 MDRO Source:: urine. e coli,mrsa Past Surgical History: Hysterectomy Additional Past Surgical History / Comment(s): Total hysterectomy, right hip arthroplasty, laser surgery of the right eye of her bleeding, bladder suspension, right elbow metal plate , gamma knife procedure for meningoma lt side of brain 03-11-17 Past Anesthesia/Blood Transfusion Reactions: No Reported Reaction Smoking Status: Former smoker - Past Family History Father Family Medical History: No Reported History Additional Family Medical History / Comment(s): Father is alive in his 80s and is a smoker. Patient does not know his medical history. Mother Family Medical History: No Reported History Additional Family Medical History / Comment(s): Mother at age 79 from Alzheimer's dementia. Sister(s) Family Medical History: Congestive Heart Failure (CHF) Additional Family Medical History / Comment(s): She has one sister that is from heart failure. Patient does not have any brothers. Patient has 2 daug hters that are 45 and 42 years of age with no major medical problems. Medications and Allergies Home Medications Medication Instructions Recorded Confirmed Type Anastrozole [Arimidex] 1 mg PO DAILY 12/22/16 10/24/19 History Aspirin 81 mg PO DAILY chew 07/23/17 10/24/19 Rx Melatonin 3 mg PO HS 10/13/17 10/24/19 History Cholecalciferol [Vitamin D3 (25 1,000 unit PO DAILY 06/05/18 10/24/19 History Mcg = 1000 Iu)] Cyanocobalamin (Vitamin B-12) 1,000 mcg PO DAILY 06/05/18 10/24/19 History [Vitamin B-12] Multivitamins, Thera [Multivitamin 1 tab PO DAILY 06/05/18 10/24/19 History (formulary)] busPIRone HCl [Buspar] 10 mg PO HS 06/05/18 10/24/19 History metFORMIN HCL [Glucophage] 500 mg PO BID 06/06/18 10/24/19 History busPIRone HCl [Buspar] 5 mg PO DAILY 08/13/18 10/24/19 History Atorvastatin Calcium [Lipitor] 10 mg PO HS 09/05/18 10/24/19 History risperiDONE [RisperDAL] 1 mg PO HS 09/05/18 10/24/19 History Omeprazole 20 mg PO DAILY 10/15/18 10/24/19 History Carvedilol 25 mg PO BID 12/26/18 10/24/19 History Cranberry Fruit Concentrate [Azo 250 mg PO DAILY 12/26/18 10/24/19 History Cranberry] Co-Q10 10 mg PO DAILY 07/09/19 10/24/19 History Acetaminophen [Tylenol] 325 mg PO Q4H PRN 10/24/19 10/24/19 History Empagliflozin [Jardiance] 25 mg PO DAILY 10/24/19 10/24/19 History Lacosamide [Vimpat] 150 mg PO BID 10/24/19 10/24/19 History levETIRAcetam [Keppra] 500 mg PO BID 10/24/19 10/24/19 History Allergies Allergy/AdvReac Type Severity Reaction Status Date / Time Sulfa (Sulfonamide Allergy Unknown Unknown Verified 07/09/19 16:15 Antibiotics) egg AdvReac Diarrhea Verified 07/09/19 16:15 solifenacin [From Vesicare] AdvReac Confusion/s Verified 07/09/19 16:15 haking Physical Exam Vitals: Vital Signs Temp Pulse Pulse Pulse Resp BP BP 10/25/19 09:09 97.6 F 76 20 113/60 10/25/19 08:00 84 76 20 10/25/19 04:00 97.2 F L 72 18 96/51 10/25/19 01:55 88 92/49 10/25/19 01:30 81 98/49 10/25/19 01:00 82 103/55 10/25/19 00:30 83 104/55 10/25/19 00:00 97.1 F L 86 18 74/33 10/24/19 20:00 98.4 F 84 84 16 150/88 10/24/19 18:00 79 15 10/24/19 17:30 98.2 F 75 16 134/81 10/24/19 17:00 75 18 145/82 10/24/19 16:30 77 18 10/24/19 16:00 67 16 162/127 10/24/19 15:30 71 16 126/89 10/24/19 15:00 71 15 175/104 10/24/19 14:41 75 19 10/24/19 14:35 72 18 144/103 10/24/19 14:20 71 16 142/98 10/24/19 14:05 97.2 F L 89 18 141/79 BP Pulse Ox 10/25/19 09:09 96 10/25/19 08:00 10/25/19 04:00 96 10/25/19 01:55 94 L 10/25/19 01:30 10/25/19 01:00 10/25/19 00:30 10/25/19 00:00 85/53 92 L 10/24/19 20:00 95 10/24/19 18:00 93 L 10/24/19 17:30 91 L 10/24/19 17:00 94 L 10/24/19 16:30 91 L 10/24/19 16:00 96 10/24/19 15:30 97 10/24/19 15:00 96 10/24/19 14:41 96 10/24/19 14:35 98 10/24/19 14:20 98 10/24/19 14:05 96 Intake and Output 02/09/20 02/10/20 02/10/20 22:59 06:59 14:59 Intake Total 360 Balance 360 Intake: Oral 360 Other: Voiding Method Toilet Toilet Toilet Diaper Diaper Diaper Incontinent Incontinent Incontinent # Voids 0 2 2 Weight 68.039 kg 65.3 kg Results CBC & Chem 7: 10/25/19 05:26 10/25/19 05:26 Labs: Abnormal Lab Results - Last 24 Hours (Table) 10/24/19 10/24/19 10/24/19 Range/Units 14:35 15:00 15:13 APTT 20.7 L (22.0-30.0) sec Sodium (137-145) mmol/L BUN (7-17) mg/dL Creatinine (0.52-1.04) mg/dL Glucose (74-99) mg/dL POC Glucose (mg/dL) 123 H (75-99) mg/dL Urine Appearance Turbid H (Clear) Urine Protein Trace H (Negative) Urine Glucose (UA) 4+ H (Negative) Urine Ketones 1+ H (Negative) Urine Blood Trace H (Negative) Urine Nitrite Positive H (Negative) Ur Leukocyte Esterase Large H (Negative) Urine RBC 7 H (0-5) /hpf Urine WBC >182 H (0-5) /hpf Urine WBC Clumps Many H (None) /hpf Urine Bacteria Many H (None) /hpf Urine Mucus Occasional H (None) /hpf 10/24/19 10/25/19 10/25/19 Range/Units 15:13 00:04 05:26 APTT (22.0-30.0) sec Sodium 134 L 134 L (137-145) mmol/L BUN 24 H 25 H (7-17) mg/dL Creatinine 0.50 L (0.52-1.04) mg/dL Glucose 107 H (74-99) mg/dL POC Glucose (mg/dL) 169 H (75-99) mg/dL Urine Appearance (Clear) Urine Protein (Negative) Urine Glucose (UA) (Negative) Urine Ketones (Negative) Urine Blood (Negative) Urine Nitrite (Negative) Ur Leukocyte Esterase (Negative) Urine RBC (0-5) /hpf Urine WBC (0-5) /hpf Urine WBC Clumps (None) /hpf Urine Bacteria (None) /hpf Urine Mucus (None) /hpf 10/25/19 10/25/19 Range/Units 06:13 11:34 APTT (22.0-30.0) sec Sodium (137-145) mmol/L BUN (7-17) mg/dL Creatinine (0.52-1.04) mg/dL Glucose (74-99) mg/dL POC Glucose (mg/dL) 151 H 139 H (75-99) mg/dL Urine Appearance (Clear) Urine Protein (Negative) Urine Glucose (UA) (Negative) Urine Ketones (Negative) Urine Blood (Negative) Urine Nitrite (Negative) Ur Leukocyte Esterase (Negative) Urine RBC (0-5) /hpf Urine WBC (0-5) /hpf Urine WBC Clumps (None) /hpf Urine Bacteria (None) /hpf Urine Mucus (None) /hpf Microbiology - Last 24 Hours (Table) 10/24/19 15:00 Urine Culture - Preliminary Urine,Voided Thrombosis Risk Factor Assmnt - Choose All That Apply Each Risk Factor Represents 2 Points: Age 61-74 years Thrombosis Risk Factor Assessment Total Risk Factor Score: 2 Thrombosis Risk Factor Assessment Level: Low Risk
--- NOTE | 2019-10-26 18:02 | P.PN ---
Progress Note - Text Progress Note Date: 10/26/19 Chief Complaint: Right leg weakness History of presenting complaint: This is a 74-year-old patient of Dr. Hunt. Chronic stable medical conditions include essential hypertension, meningioma treated with, knife, seizure, diabetes mellitus type 2, hyperlipidemia, GERD, history of intracranial bleed in July 2015, overactive bladder, moderate to severe cognitive impairment multifactorial. Patient not able to give any history is smiling sitting up and not making much sense to the words are clear. Normally patient is able to get about. Was brought in by the to the ER patient is not able to walk. Especially noted to be weak in the right leg. Patient likes still does not able to give any history. Denies any pain. Initial workup in the ER was negative. Neurology was consulted. Denies any back pain. Today-patient is cheerful laying in bed. Did walk in the hallway. No deficit. Did tolerate her diet. Review of systems: Was done for constitutional, cardiovascular, GI, pulmonary. relevant finding as above Active Medications Acetaminophen (Tylenol Tab) 325 mg PO Q4H PRN PRN Reason: Pain Last Admin: 10/25/19 13:19 Dose: 325 mg Documented by: Anastrozole (Arimidex) 1 mg PO DAILY [facility] Last Admin: 10/26/19 07:57 Dose: 1 mg Documented by: Aspirin (Aspirin) 81 mg PO DAILY [facility] Last Admin: 10/26/19 07:56 Dose: 81 mg Documented by: Atorvastatin Calcium (Lipitor) [address] [facility] Last Admin: 10/25/19 20:42 Dose: 10 mg Documented by: Buspirone HCl (Buspar) 5 mg PO DAILY [facility] Last Admin: 10/26/19 07:55 Dose: 5 mg Documented by: Buspirone HCl (Buspar) [address] [facility] Last Admin: 10/25/19 20:45 Dose: 10 mg Documented by: Carvedilol (Coreg) 25 mg PO BID-W/MEALS [facility] Last Admin: 10/26/19 16:51 Dose: 25 mg Documented by: Cholecalciferol (Vitamin D3 (25 Mcg = 1000 Iu)) 1,000 unit PO DAILY [facility] Last Admin: 10/26/19 07:57 Dose: 1,000 unit Documented by: Cyanocobalamin (Vitamin B-12) 1,000 mcg PO DAILY [facility] Last Admin: 10/26/19 07:57 Dose: 1,000 mcg Documented by: Sodium Chloride (Saline 0.9%) 1,000 mls @ 20 mls/hr IV .Q24H [facility] Last Admin: 10/26/19 16:51 Dose: Not Given Documented by: Lacosamide (Vimpat) 150 mg PO BID [facility] Last Admin: 10/26/19 07:56 Dose: 150 mg Documented by: Levetiracetam (Keppra) 500 mg PO BID [facility] Last Admin: 10/26/19 07:56 Dose: 500 mg Documented by: Melatonin (Melatonin) 3 mg PO HS [facility] Last Admin: 10/25/19 20:42 Dose: 3 mg Documented by: Metformin HCl (Glucophage) 500 mg PO BID [facility] Last Admin: 10/26/19 08:01 Dose: Not Given Documented by: Multivitamins (Theragran) 1 each PO DAILY [facility] Last Admin: 10/26/19 07:57 Dose: 1 each Documented by: Naloxone HCl (Narcan) 0.2 mg IV Q2M PRN PRN Reason: Opioid Reversal Non-Formulary Medication (Empagliflozin [Jardiance]) 25 mg PO DAILY [facility] Last Admin: 10/26/19 08:16 Dose: Not Given Documented by: Pantoprazole Sodium (Protonix) 40 mg PO DAILY [facility] Last Admin: 10/26/19 07:57 Dose: 40 mg Documented by: Risperidone (Risperdal) 1 mg PO HS [facility] Last Admin: 10/25/19 20:46 Dose: 1 mg Documented by: Physical examination: VITAL SIGNS: 97.5, 74, 16, 124/67, 97% on room air GENERAL: Sitting in bed, comfortable EYES: Pupils equal. Conjunctiva normal. HEENT: External appearance of nose and ears normal, oral cavity grossly normal. NECK: JVD not raised; masses not palpable. HEART: First and second heart sounds are normal; no edema. LUNGS: Respiratory rate normal; clear to auscultation. ABDOMEN: Soft, nontender, liver spleen not palpable, no masses palpable. PSYCH: [Patient not answering questions though smiling and talking what ever she likes l. NEUROLOGICAL: Patient active walking the hallway. LYMPHATICS: No lymph nodes palpable in the axilla and neck INVESTIGATIONS, reviewed in the clinical context: MRI brain-unremarkable Previous testing White count 8.6 hemoglobin 12.5 platelets 232 potassium 4.3 creatinine 0.58 EKG tracing personally reviewed by me-left bundle branch block Computed tomography scan of the brain-chronic changes CT angiogram to brain-1.3 mm meningioma at the less cerebellopontine junction Assessment: -Possible TIA. MRI is negative. -Essential hypertension -Chronic seizure disorder -Diabetes mellitus type 2 -Hyperlipidemia -GERD -History of intracranial bleed in July 2015 -Overactive bladder -Moderate to severe cognitive impairment -Bipolar disorder -1.3 mm meningioma. Plan: Patient's is acting the ER today. Who takes care of the patient. Spoke to the pillowcase maker. We will find out more information about the same, from there. Neurology input appreciated.
[2019-10-26] MEDS: ATORVASTATIN 10 MG TAB PO SCH (19:47)
[2019-10-26] MEDS: risperiDONE 1 MG TAB PO SCH (19:47)
[2019-10-26] MEDS: MELATONIN 3 MG TABLET PO SCH (19:48)
[2019-10-26 21:00] LABS: Glucose,Whole Blood 151 mg/dL (75-99)
[2019-10-27 08:56] VITALS: BP 151/87; PULSE 77; TEMP 97.9
[2019-10-27] MEDS: PANTOPRAZOLE 40 MG TABLET PO SCH (09:11)
[2019-10-27] MEDS: metFORMIN 500 MG TAB PO SCH (09:11)
[2019-10-27] MEDS: CYANOCOBALAMIN 500 MCG TAB PO SCH (09:11)
[2019-10-27] MEDS: busPIRone HCl 5 MG TAB PO SCH (09:11)
[2019-10-27] MEDS: LACOSAMIDE 150 MG TABLET PO SCH (09:11)
[2019-10-27] MEDS: MULTIVITAMINS, THERA 1 EACH TAB PO SCH (09:11)
[2019-10-27] MEDS: CHOLECALCIFEROL 1,000 UNIT TAB PO SCH (09:12)
[2019-10-27] MEDS: CARVEDILOL 12.5 MG TAB PO SCH (09:12)
[2019-10-27] MEDS: ASPIRIN 81 MG PO SCH (09:12)
[2019-10-27] MEDS: NON FORMULARY DRUG (Empagliflozin [Jardiance] 25 MG) PO SCH (09:12)
[2019-10-27] MEDS: ANASTROZOLE 1 MG TAB PO SCH (09:12)
[2019-10-27] MEDS: levETIRAcetam 500 MG TAB PO SCH (10:23)
[2019-10-27 11:31] LABS: Glucose,Whole Blood 207 mg/dL (75-99)
--- NOTE | 2019-10-28 15:42 | P.DS ---
Providers Date of admission: 10/26/19 08:33 Expected date of discharge: 10/27/19 Attending physician: Bennett Esteves Consults: 10/24/19 16:25 Consult Physician Urgent Consulting Provider: Litzy Buchanan Consult Reason/Comments: possible TIA Do you want consulting provider notified?: Yes Primary care physician: Mani [facility] Course: Chief Complaint: Right leg weakness History of presenting complaint: This is a 74-year-old patient of Dr. Hunt. Chronic stable medical conditions include essential hypertension, meningioma treated with, knife, seizure, diabetes mellitus type 2, hyperlipidemia, GERD, history of intracranial bleed in July 2015, overactive bladder, moderate to severe cognitive impairment multifactorial. Patient not able to give any history is smiling sitting up and not making much sense to the words are clear. Normally patient is able to get about. Was brought in by the to the ER patient is not able to walk. Especially noted to be weak in the right leg. Patient likes still does not able to give any history. Denies any pain. Initial workup in the ER was negative. Neurology was consulted. Patient's up and about the hallway. Walking normally. Seen by neurology. Okay to be discharged. Consultation: Dr. Stewart from neurology Physical examination: VITAL SIGNS: 97.9, 77, 16, 151/87, 96% room air GENERAL: Sitting up, comfortable EYES: Pupils equal. Conjunctiva normal. HEENT: External appearance of nose and ears normal, oral cavity grossly normal. NECK: JVD not raised; masses not palpable. HEART: First and second heart sounds are normal; no edema. LUNGS: Respiratory rate normal; clear to auscultation. ABDOMEN: Soft, nontender, liver spleen not palpable, no masses palpable. PSYCH: [Patient not answering questions though smiling and talking what ever she likes l. INVESTIGATIONS, reviewed in the clinical context: White count 8.6 hemoglobin 12.5 platelets 232 potassium 4.3 creatinine 0.58 EKG tracing personally reviewed by me-left bundle branch block Computed tomography scan of the brain-chronic changes CT angiogram to brain-1.3 mm meningioma at the less cerebellopontine junction MRI brain-unremarkable Assessment: -Possible TIA. At that -Essential hypertension -Chronic seizure disorder -Diabetes mellitus type 2 -Hyperlipidemia -GERD -History of intracranial bleed in July 2015 -Overactive bladder - severe cognitive impairment -Bipolar disorder -1.3 mm meningioma. Disposition: Home Patient Condition at Discharge: Stable Plan - Discharge Summary Discharge Rx Participant: Yes New Discharge Prescriptions: Continue Anastrozole [Arimidex] 1 mg PO DAILY Aspirin 81 mg PO DAILY chew Melatonin 3 mg PO HS Multivitamins, Thera [Multivitamin (formulary)] 1 tab PO DAILY Cyanocobalamin (Vitamin B-12) [Vitamin B-12] 1,000 mcg PO DAILY Cholecalciferol [Vitamin D3 (25 Mcg = 1000 Iu)] 1,000 unit PO DAILY busPIRone HCl [Buspar] 10 mg PO HS metFORMIN HCL [Glucophage] 500 mg PO BID busPIRone HCl [Buspar] 5 mg PO DAILY Atorvastatin Calcium [Lipitor] 10 mg PO HS risperiDONE [RisperDAL] 1 mg PO HS Omeprazole 20 mg PO DAILY Carvedilol 25 mg PO BID Acetaminophen [Tylenol] 325 mg PO Q4H PRN PRN Reason: Pain Empagliflozin [Jardiance] 25 mg PO DAILY Lacosamide [Vimpat] 150 mg PO BID levETIRAcetam [Keppra] 500 mg PO BID No Action Cranberry Fruit Concentrate [Azo Cranberry] 250 mg PO DAILY Co-Q10 10 mg PO DAILY Discharge Medication List Anastrozole [Arimidex] 1 mg PO DAILY 12/22/16 [History] Aspirin 81 mg PO DAILY chew 07/23/17 [Rx] Melatonin 3 mg PO HS 10/13/17 [History] Cholecalciferol [Vitamin D3 (25 Mcg = 1000 Iu)] 1,000 unit PO DAILY 06/05/18 [History] Cyanocobalamin (Vitamin B-12) [Vitamin B-12] 1,000 mcg PO DAILY 06/05/18 [History] Multivitamins, Thera [Multivitamin (formulary)] 1 tab PO DAILY 06/05/18 [History] busPIRone HCl [Buspar] 10 mg PO HS 06/05/18 [History] metFORMIN HCL [Glucophage] 500 mg PO BID 06/06/18 [History] busPIRone HCl [Buspar] 5 mg PO DAILY 08/13/18 [History] Atorvastatin Calcium [Lipitor] 10 mg PO HS 09/05/18 [History] risperiDONE [RisperDAL] 1 mg PO HS 09/05/18 [History] Omeprazole 20 mg PO DAILY 10/15/18 [History] Carvedilol 25 mg PO BID 12/26/18 [History] Cranberry Fruit Concentrate [Azo Cranberry] 250 mg PO DAILY 12/26/18 [History] Co-Q10 10 mg PO DAILY 07/09/19 [History] Acetaminophen [Tylenol] 325 mg PO Q4H PRN 10/24/19 [History] Empagliflozin [Jardiance] 25 mg PO DAILY 10/24/19 [History] Lacosamide [Vimpat] 150 mg PO BID 10/24/19 [History] levETIRAcetam [Keppra] 500 mg PO BID 10/24/19 [History] Follow up Appointment(s)/Referral(s): aMni Hunt DO [Primary Care Provider] - 11/09/19 1:20 pm (With [facility] [NON[facility]STAFF] - Patient Instructions/Handouts: Transient Ischemic Attack (DC), Urinary Tract Infection in Women (DC) Activity/Diet/Wound Care/Special Instructions: CVA/TIA Call your physician with any worsening symptoms of stroke such as, increased weakness, new numbness or tingling, mental status changes, visual changes or new loss of sensation. Stroke prevention methods include lowering cholesterol, thinning your blood, preventing high blood pressure, keeping tight control of your diabetes, increasing exercise/activity, smoking cessation and alcohol cessation. Discharge Disposition: HOME WITH HOME HEALTH SERVICES
== END 2019-10-27 14:21 | disposition home health service (06) | DRG 69 ==
LOC: EC 14:03 → 3SCARD 16:24 → OBSVTOIN 10-26 08:33 → 4SSUR 10-26 21:54
PROVIDERS: ADMIT Hospitalist; ATTEND Hospitalist
DX: G45.9 Transient cerebral ischemic attack, unspecified (principal); N39.0 Urinary tract infection, site not specified; D32.9 Benign neoplasm of meninges, unspecified; E11.9 Type 2 diabetes mellitus without complications; E78.5 Hyperlipidemia, unspecified; F31.9 Bipolar disorder, unspecified; G40.909 Epilepsy, unspecified, not intractable, without status epilepticus; I10 Essential (primary) hypertension; I44.7 Left bundle-branch block, unspecified; K21.9 Gastro-esophageal reflux disease without esophagitis; N32.81 Overactive bladder; F41.9 Anxiety disorder, unspecified; G83.84 Todd's paralysis (postepileptic); R26.2 Difficulty in walking, not elsewhere classified; R41.89 Other symptoms and signs involving cognitive functions and awareness; R32 Unspecified urinary incontinence; R29.706 NIHSS score 6; Z79.811 Long term (current) use of aromatase inhibitors; Z79.82 Long term (current) use of aspirin; Z79.84 Long term (current) use of oral hypoglycemic drugs; Z79.899 Other long term (current) drug therapy; Z85.3 Personal history of malignant neoplasm of breast; Z86.73 Personal history of transient ischemic attack (TIA), and cerebral infarction without residual deficits; Z87.891 Personal history of nicotine dependence; Z90.710 Acquired absence of both cervix and uterus; Z96.641 Presence of right artificial hip joint; Z88.2 Allergy status to sulfonamides; Z88.8 Allergy status to other drugs, medicaments and biological substances; Z87.440 Personal history of urinary (tract) infections; Z86.14 Personal history of Methicillin resistant Staphylococcus aureus infection; Z91.012 Allergy to eggs; Z82.0 Family history of epilepsy and other diseases of the nervous system; Z82.49 Family history of ischemic heart disease and other diseases of the circulatory system
CPT/HCPCS: 36415; 70450; 70496; 70498; 70551; 71046; 80048; 80053; 80061; 81001; 83605; 84484; 85025; 85610; 85730; 87040; 87077; 87086; 87186; 93005; 93306; 96374; 99285

== ENCOUNTER 2019-10-28 14:12 | Observation (INO) | payer MEDICARE ==
--- NOTE | 2019-10-27 22:56 | PN ---
PROGRESS NOTE DATE OF SERVICE: 10/27/2019. REASON FOR FOLLOWUP: Gram-negative urinary tract infection and a question of typhilitis. INTERVAL HISTORY: The patient is currently afebrile. He seems to be more awake and alert. He is breathing comfortably. Denies having any chest pain or any cough. No abdominal pain and no diarrhea. PHYSICAL EXAMINATION: Blood pressure is 113/70 with a pulse of 66, temperature 96.7. He is 97% on room air. General description is an elderly male lying in bed in no distress. RESPIRATORY SYSTEM: Unlabored breathing. Clear to auscultation anteriorly. HEART: S1, S2. Regular rate and rhythm. ABDOMEN: Soft. No tenderness. LABS: Hemoglobin 11.1, white count 4.6, BUN of 27, creatinine 0.97. Urine showing Gram- negative bacilli. DIAGNOSTIC IMPRESSION AND PLAN: Patient with mental status changes which are likely multifactorial with a possible component of Gram-negative urinary tract infection in this patient who did have risk factor of urinary retention. Patient is covered with cefepime; to continue while waiting for the culture to finalize. Continue supportive care. MMODL / IJN: [id number] /
[2019-10-28] MEDS ORDERED: SODIUM CHLORIDE 0.9% 500 ML 500 ML IV STA (15:03)
--- NOTE | 2019-10-28 15:16 | ED ---
General Adult HPI - General Chief complaint: Weakness Stated complaint: Weakness Time Seen by Provider: 10/28/19 14:25 Source: patient, RN notes reviewed, old records reviewed Mode of arrival: EMS Limitations: altered mental status - History of Present Illness Initial comments: This is a 74-year-old female presents emergency Department after having been discharged from the hospital last night. According to the the patient was here for a TIA. Patient woke up this morning and according to was doing okay but she went to try to stand up and she was unable to hold herself up so she eventually fell down onto her buttocks. Patient denies any injury states she did not hit her head or neck. Patient has no complaints from the fall. Patient states she's just too weak to stand. is in agreement with this and he states he cannot take care of her because when she followed he cannot pick her up. Patient denies any fever chills or cough per patient denies any chest pain difficulty breathing shortest breath per patient denies any abdominal pain patient denies nausea vomiting diarrhea. - Related Data Home Medications Medication Instructions Recorded Confirmed Anastrozole [Arimidex] 1 mg PO DAILY 12/22/16 10/24/19 Melatonin 3 mg PO HS 10/13/17 10/24/19 Cholecalciferol [Vitamin D3 (25 1,000 unit PO DAILY 06/05/18 10/24/19 Mcg = 1000 Iu)] Cyanocobalamin (Vitamin B-12) 1,000 mcg PO DAILY 06/05/18 10/24/19 [Vitamin B-12] Multivitamins, Thera [Multivitamin 1 tab PO DAILY 06/05/18 10/24/19 (formulary)] busPIRone HCl [Buspar] 10 mg PO HS 06/05/18 10/24/19 metFORMIN HCL [Glucophage] 500 mg PO BID 06/06/18 10/24/19 busPIRone HCl [Buspar] 5 mg PO DAILY 08/13/18 10/24/19 Atorvastatin Calcium [Lipitor] 10 mg PO HS 09/05/18 10/24/19 risperiDONE [RisperDAL] 1 mg PO HS 09/05/18 10/24/19 Omeprazole 20 mg PO DAILY 10/15/18 10/24/19 Carvedilol 25 mg PO BID 12/26/18 10/24/19 Cranberry Fruit Concentrate [Azo 250 mg PO DAILY 12/26/18 10/24/19 Cranberry] Co-Q10 10 mg PO DAILY 07/09/19 10/24/19 Acetaminophen [Tylenol] 325 mg PO Q4H PRN 10/24/19 10/24/19 Empagliflozin [Jardiance] 25 mg PO DAILY 10/24/19 10/24/19 Lacosamide [Vimpat] 150 mg PO BID 10/24/19 10/24/19 levETIRAcetam [Keppra] 500 mg PO BID 10/24/19 10/24/19 Previous Rx's Medication Instructions Recorded Aspirin 81 mg PO DAILY chew 07/23/17 Allergies Allergy/AdvReac Type Severity Reaction Status Date / Time Sulfa (Sulfonamide Allergy Unknown Unknown Verified 10/28/19 14:33 Antibiotics) egg AdvReac Diarrhea Verified 10/28/19 14:33 solifenacin [From Vesicare] AdvReac Confusion/s Verified 10/28/19 14:33 lindsey Review of Systems ROS Statement: Those systems with pertinent positive or pertinent negative responses have been documented in the HPI. ROS Other: All systems not noted in ROS Statement are negative. 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 History of Any Multi-Drug Resistant Organisms: CRE, MRSA Date of last positivie culture/infection: 08/13/18 MDRO Source:: urine. e coli,mrsa Past Surgical History: Hysterectomy Additional Past Surgical History / Comment(s): Total hysterectomy, right hip arthroplasty, laser surgery of the right eye of her bleeding, bladder suspension, right elbow metal plate , gamma knife procedure for meningoma lt side of brain 03-11-17 Past Anesthesia/Blood Transfusion Reactions: No Reported Reaction Past Psychological History: Anxiety, Bipolar, Depression Smoking Status: Former smoker - Past Family History Father Family Medical History: No Reported History Additional Family Medical History / Comment(s): Father is alive in his 80s and is a smoker. Patient does not know his medical history. Mother Family Medical History: No Reported History Additional Family Medical History / Comment(s): Mother at age 79 from Alzheimer's dementia. Sister(s) Family Medical History: Congestive Heart Failure (CHF) Additional Family Medical History / Comment(s): She has one sister that is from heart failure. Patient does not have any brothers. Patient has 2 daughters that are 45 and 42 years of age with no major medical problems. General Exam - General Exam Comments Initial Comments: GENERAL: Patient is well-developed and well-nourished. Patient is nontoxic and well- hydrated and is in mild distress. ENT: Neck is soft and supple. No significant lymphadenopathy is noted. Oropharynx is clear. Moist mucous membranes. Neck has full range of motion without eliciting any pain. EYES: The sclera were anicteric and conjunctiva were pink and moist. Extraocular movements were intact and pupils were equal round and reactive to light. Eyelids were unremarkable. PULMONARY: Unlabored respirations. Good breath sounds bilaterally. No audible rales rhonchi or wheezing was noted. CARDIOVASCULAR: There is a regular rate and rhythm without any murmurs gallops or rubs. ABDOMEN: Soft and nontender with normal bowel sounds. SKIN: Skin is clear with no lesions or rashes and otherwise unremarkable. NEUROLOGIC: Patient is alert and oriented x3. Cranial nerves II through XII are grossly intact. Motor and sensory are also intact. Normal speech, volume and content. Symmetrical smile. MUSCULOSKELETAL: Normal extremities with adequate strength and full range of motion. No lower extremity swelling or edema. No calf tenderness. LYMPHATICS: No significant lymphadenopathy is noted PSYCHIATRIC: Normal psychiatric evaluation. Limitations: altered mental status Course Vital Signs 10/28/19 14:26 Temperature 98.2 F Pulse Rate 97 Respiratory 18 Rate Blood Pressure 153/72 O2 Sat by Pulse 98 Oximetry Medical Decision Making - Medical Decision Making EKG shows normal sinus rhythm at 67 bpm NV interval is 176 QS 154 Q-T intervals 450 QTC is 475. Patient's EKG shows left bundle branch block. Patient has a urinary tract infection and started the patient on antibiotics. I looked at the old microbiology results [facility] I [facility] with Dr. Vera he agreed to admit the patient admitted the patient wrote admitting orders. - Lab Data Result diagrams: 10/28/19 16:15 10/28/19 15:03 Lab Results 10/28/19 10/28/19 10/28/19 Range/Units 15:03 15:30 16:15 WBC 8.1 (3.8-10.6) k/uL RBC 4.20 (3.80-5.40) m/uL Hgb 12.8 (11.4-16.0) gm/dL Hct 36.5 (34.0-46.0) % MCV 86.9 (80.0-100.0) fL MCH 30.5 (25.0-35.0) pg MCHC 35.1 (31.0-37.0) g/dL RDW 12.6 (11.5-15.5) % Plt Count 195 (150-450) k/uL Neutrophils % 75 % Lymphocytes % 16 % Monocytes % 4 % Eosinophils % 2 % Basophils % 1 % Neutrophils # 6.1 (1.3-7.7) k/uL Lymphocytes # 1.3 (1.0-4.8) k/uL Monocytes # 0.3 (0-1.0) k/uL Eosinophils # 0.2 (0-0.7) k/uL Basophils # 0.0 (0-0.2) k/uL Sodium 138 (137-145) mmol/L Potassium 4.0 (3.5-5.1) mmol/L Chloride 106 (98-107) mmol/L Carbon Dioxide 21 L (22-30) mmol/L Anion Gap 11 mmol/L BUN 19 H (7-17) mg/dL Creatinine 0.48 L (0.52-1.04) mg/dL Est GFR (CKD-EPI)AfAm >90 (>60 ml/min/1.73 sqM) Est GFR (CKD-EPI)NonAf >90 (>60 ml/min/1.73 sqM) Glucose 129 H (74-99) mg/dL Calcium 9.5 (8.4-10.2) mg/dL Magnesium 1.8 (1.6-2.3) mg/dL Total Bilirubin 0.6 (0.2-1.3) mg/dL AST 23 (14-36) U/L ALT 19 (4-34) U/L Alkaline Phosphatase 97 (38-126) U/L Total Protein 6.6 (6.3-8.2) g/dL Albumin 3.6 (3.5-5.0) g/dL Urine Color Yellow Urine Appearance Cloudy H (Clear) Urine pH 5.5 (5.0-8.0) Ur Specific [place] 1.014 (1.001-1.035) Urine Protein Negative (Negative) Urine Glucose (UA) 3+ H (Negative) Urine Ketones Negative (Negative) Urine Blood Negative (Negative) Urine Nitrite Positive H (Negative) Urine Bilirubin Negative (Negative) Urine Urobilinogen <2.0 (<2.0) mg/dL Ur Leukocyte Esterase Negative (Negative) Urine RBC 3 (0-5) /hpf Urine WBC 160 H (0-5) /hpf Urine WBC Clumps Few H (None) /hpf Ur Squamous Epith Cells 3 (0-4) /hpf Urine Bacteria Many H (None) /hpf Urine Mucus Rare H (None) /hpf Disposition Clinical Impression: Urinary tract infection, Generalized weakness Disposition: ADMITTED IP TO THIS [facility] Referrals: Mani Hunt DO [Primary Care Provider] - 1-2 days Time of Disposition: 17:01
[2019-10-28 15:58] LABS: Appearance,Urine Cloudy (Clear); Bacteria,Urine Many /hpf; Bilirubin,Urine Negative (Negative); Blood,Urine Negative (Negative); Color,Urine Yellow; Glucose,Urine (UA) 3+ (Negative); Ketones,Urine Negative (Negative); Leukocyte Esterase,Urine Negative (Negative); Mucus,Urine Rare /hpf; Nitrite,Urine Positive (Negative); PH, Urine 5.5 (5.0-8.0); Protein,Urine Negative (Negative); RBC,Urine 3 /hpf (0-5); Specific Gravity,Urine 1.014 (1.001-1.035); Squamous Epithelial Cell,Urine 3 /hpf (0-4); Urobilinogen,Urine <2.0 mg/dL (<2.0); WBC,Urine 160 /hpf (0-5)
[2019-10-28] MEDS ORDERED: LEVOFLOXACIN 500MG-D5W PMX 500 MG in DEXTROSE/WATER 1 100ML.BAG IVPB STA (16:40)
[2019-10-28] MEDS ORDERED: METOCLOPRAMIDE 5 MG/ML 2 ML VIAL IVP STA (16:40)
[2019-10-28 16:51] LABS: ALT 19 U/L (4-34); AST 23 U/L (14-36); African American GFR (CKD) >90 (>60 ml/min/1.73 sqM); Albumin 3.6 g/dL (3.5-5.0); Alkaline Phosphatase 97 U/L (38-126); Anion Gap 11 mmol/L; Blood Urea Nitrogen 19 mg/dL (7-17); Calcium 9.5 mg/dL (8.4-10.2); Carbon Dioxide 21 mmol/L (22-30); Chloride 106 mmol/L (98-107); Glucose 129 mg/dL (74-99); Magnesium 1.8 mg/dL (1.6-2.3); Non-African American GFR(CKD) >90 (>60 ml/min/1.73 sqM); Sodium 138 mmol/L (137-145); Total Bilirubin 0.6 mg/dL (0.2-1.3); Total Protein 6.6 g/dL (6.3-8.2)
[2019-10-28 16:53] LABS: Basophils % (A) 1 %; Eosinophils # (A) 0.2 k/uL (0-0.7); Eosinophils % (A) 2 %; HCT 36.5 % (34.0-46.0); HGB 12.8 gm/dL (11.4-16.0); Lymphocytes # (A) 1.3 k/uL (1.0-4.8); Lymphocytes % (A) 16 %; MCH 30.5 pg (25.0-35.0); MCHC 35.1 g/dL (31.0-37.0); MCV 86.9 fL (80.0-100.0); Mean Platelet Volume 7.9; Monocytes # (A) 0.3 k/uL (0-1.0); Monocytes % (A) 4 %; Neutrophils # (A) 6.1 k/uL (1.3-7.7); Neutrophils % (A) 75 %; Platelet Count 195 k/uL (150-450); RDW 12.6 % (11.5-15.5); WBC 8.1 k/uL (3.8-10.6)
[2019-10-28] MEDS ORDERED: SODIUM CHLORIDE 0.9% 1,000 ML IV ONE (17:02)
--- NOTE | 2019-10-28 19:20 | XR ---
EXAMINATION: XR chest 2V DATE AND TIME: 10/28/2019 6:20 PM CLINICAL INDICATION: PHH; Weakness TECHNIQUE: AP and lateral views COMPARISON: 10/24/2019 FINDINGS: The lungs are clear. The pleural spaces are negative. The cardiac silhouette is likely enlarged, unchanged. The remainder of the mediastinal silhouette is remarkable for prominent aortic ectasia, unchanged. The skeletal structures and soft tissues are negative for acute findings. The right chest wall sarita ectural distortion is redemonstrated, consistent with remote injury. IMPRESSION: No definite acute radiographic process. Prominent aortic ectasia redemonstrated.
[2019-10-28] MEDS ORDERED: ACETAMINOPHEN TAB 325 MG TAB PO PRN (20:46)
[2019-10-28] MEDS ORDERED: LACOSAMIDE 150 MG TABLET PO SCH (21:00)
[2019-10-28 21:20] LABS: Glucose,Whole Blood 128 mg/dL (75-99)
[2019-10-28] MEDS: CARVEDILOL 12.5 MG TAB PO SCH (21:50)
[2019-10-28] MEDS: OXYBUTYNIN 10 MG TAB.ER.24 PO SCH (21:50)
[2019-10-28] MEDS: levETIRAcetam 500 MG TAB PO SCH (21:50)
[2019-10-28] MEDS: ATORVASTATIN 10 MG TAB PO SCH (21:50)
[2019-10-28] MEDS: HEPARIN SODIUM,PORCINE 5,000 UNIT/ML 1 ML VIAL SQ SCH (21:50)
[2019-10-28] MEDS: MELATONIN 3 MG TABLET PO SCH (21:50)
[2019-10-28] MEDS: risperiDONE 1 MG TAB PO SCH (21:50)
[2019-10-28] MEDS: metFORMIN 500 MG TAB PO SCH (21:50)
[2019-10-28] MEDS: busPIRone HCl 5 MG TAB PO SCH (21:50)
--- NOTE | 2019-10-28 22:40 | HP ---
HISTORY AND PHYSICAL DATE OF SERVICE: 10/28/2019 CHIEF COMPLAINTS: Weakness, presyncope and fall. HISTORY OF PRESENT ILLNESS: This 74-year-old woman with a past medical history of multiple medical problems including CVA, TIA, diabetes, history of GERD, hypertension, hyperlipidemia, seizure disorder, intracranial bleed in 2014, multiple UTIs, history of MRSA, CRE, history of anxiety, bipolar depression being followed by Dr. Hunt in the outpatient setting, was recently admitted to [facility] with complaints with features of TIA and hypertension and other multiple medical problems. At that time, apparently the patient was evaluated by the long-term, admission for the patient apparently does not qualify for. The family took the patient home and the was actually with the patient. Patient got up and to go to the bathroom, but the patient apparently fainted and passed out. The patient unable to hold herself and the patient has to sit down on her buttocks. The patient also had some balance issues and the patient taken to [facility] and was admitted to the hospital for further evaluation and treatment. A brain MRI done recently showed multiple abnormalities including encephalomalacia and as well as a cerebellopontine angle mass, isodense at T2 weighted sequence sequences at 1.5 cm and multiple other abnormalities and also. There is no history of fever, rigors. No history of headache, loss of consciousness, seizures at this time. PAST MEDICAL HISTORY: History of CVA, TIA, history of diabetes type 2, history of GERD, hypertension, hyperlipidemia, seizure disorder, intracranial bleed, overactive bladder, history of CRE MRSA. MEDICATIONS: Prior to admission, home medications are: 1. Jardiance 10 mg p.o. daily. 2. Detrol LA 4 mg q.h.s. 3. Ecotrin 81 mg p.o. daily. 4. Risperdal 1 mg q.h.s. 5. Glucophage 500 mg p.o. b.i.d. 6. Keppra 500 mg p.o. b.i.d. 7. BuSpar 5 mg p.o. daily and 10 mg q.h.s. 8. Omeprazole 20 mg p.o. daily. 9. Multivitamins one p.o. daily. 10.Melatonin 3 mg q.h.s. 11.Vimpat 150 mg p.o. b.i.d. 12.Vitamin B12 1000 mcg p.o. daily. 13.Cranberry 250 mg daily. 14.Coenzyme Q10 mg p.o. daily. 15.Vitamin D 3000 daily. 16.Coreg 25 mg p.o. b.i.d. 17.Lipitor 10 mg q.h.s. 18.Arimidex 1 mg p.o. daily. 19.Tylenol 320 mg q.4h p.r.n. ALLERGIES: SULFA, EGG, VESICARE. FAMILY HISTORY: No history of strokes in the family. SOCIAL HISTORY: Previous history of smoking. No history of current smoking or alcohol intake. REVIEW OF SYSTEMS: ENT: No diminished vision. No diminished hearing. CARDIOVASCULAR: No angina or palpitations. RESPIRATIONS: No cough. No hemoptysis. GASTROINTESTINAL: As mentioned earlier. no dysuria. NERVOUS SYSTEM: As mentioned earlier. ALLERGY/IMMUNOLOGY: No asthma, hay fever. MUSCULOSKELETAL as mentioned earlier. HEMATOLOGY/ONCOLOGY: No history of anemia. ENDOCRINE: No history of diabetes or hypothyroid. CONSTITUTIONAL: As mentioned earlier. DERMATOLOGY: Negative. RHEUMATOLOGY negative. PSYCHIATRY as mentioned. PHYSICAL EXAMINATION: Alert and oriented x3. Pulse 64. Blood pressure 150/60, respiration 14, temperature is normal. Pulse ox 98% on room air. HEENT: Oral mucosa moist. NECK is no jugular venous distention. No carotid bruit. No lymph node enlargement. CARDIOVASCULAR system: S1, S2 muffled. No S3, no S4. RESPIRATORY: Breath sounds diminished in the bases. No rhonchi. No crackles. ABDOMEN: Soft, nontender. No mass palpable. LEGS: No edema. No swelling. NERVOUS SYSTEM: Higher functions as mentioned earlier. Otherwise moves all 4 limbs. Gait dysfunction present, diffusely weak. LYMPHATICS: No lymph nodes palpable in the neck, axillae or groin. JOINTS: No active deforming arthropathy. LABS: At this time shows CBC within normal limits. Sodium 130, potassium 4, creatinine 0.4, glucose 129. UA possible UTI. ASSESSMENT: 1. Change in mental status and gait dysfunction, possible acute transient ischemic attack. 2. Rule out cardiac arrhythmia. 3. Acute urinary tract infection present on admission. 4. History of multiple transient ischemic attacks. 5. 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 6. History of intracranial bleed and surgery. 7. Encephalomalacia. 8. Diabetes mellitus type 2. 9. Gastroesophageal reflux disease. 10.Hypertension. 11.Hyperlipidemia. 12.Seizure disorder. 13.Gait dysfunction. 14.History of breast cancer. 15.Multiple urinary tract infections, E coli urinary tract infections. 16.History of meningioma, left side of the brain. 17.History of lumpectomy. 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 19.History of hysterectomy. 20.Anxiety, bipolar depression. 21.Remote history of nicotine dependence. RECOMMENDATIONS AND DISCUSSION: This 74-year-old woman who presented with multiple complex medical issues, at this time I recommend to continue current medications, management and symptomatic treatment, telemetry. I would recommend a neurology evaluation. I would also recommend infectious disease evaluation because of the history of CRE and consider antibiotics per Infectious Disease. Other than that, I would also resume the home medications. PT/OT evaluation, orthostatic hypotension. Overall prognosis guarded, which I discussed at length with the family, who understands and agrees. Further recommendations to follow. 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 This patient has got high risk of fall and the injury of the recurrent TIA I would strongly recommend full inpatient admission which lasts more than 2 nights and also recommend inpatient and also recommend subacute rehab in [facility]CF. EC because of the high risk of falls and subsequent potential serious life- threatening injuries. Once again, please refer to the above mentioned medical surgical issues which is complicating the current presentation and once again, I discussed the diagnostic and prognostic implications with the family and the daughter and son-in-law and as well as the and the patient at the bedside who understands and agrees. A copy of this dictation will be forwarded to Dr. Hunt who is the primary physician. Once again, I would strongly recommend a course of and intensive gait and balance training in a rehab facility for treating and improving her functional status. WALTER / HEBER: [id number] / SRIDEVI
[2019-10-29 07:01] LABS: Glucose,Whole Blood 112 mg/dL (75-99)
[2019-10-29] MEDS: Empagliflozin [Jardiance] 10 MG PO SCH (08:05)
[2019-10-29 08:53] LABS: Basophils % (A) 1 %; Eosinophils # (A) 0.2 k/uL (0-0.7); Eosinophils % (A) 3 %; HGB 12.3 gm/dL (11.4-16.0); Lymphocytes # (A) 1.3 k/uL (1.0-4.8); Lymphocytes % (A) 23 %; MCH 29.7 pg (25.0-35.0); MCHC 33.3 g/dL (31.0-37.0); MCV 89.2 fL (80.0-100.0); Mean Platelet Volume 7.1; Monocytes # (A) 0.4 k/uL (0-1.0); Monocytes % (A) 6 %; Neutrophils # (A) 3.7 k/uL (1.3-7.7); Neutrophils % (A) 64 %; Platelet Count 219 k/uL (150-450); RBC 4.14 m/uL (3.80-5.40); RDW 12.8 % (11.5-15.5); WBC 5.7 k/uL (3.8-10.6)
[2019-10-29 08:59] LABS: African American GFR (CKD) >90 (>60 ml/min/1.73 sqM); Anion Gap 7 mmol/L; Blood Urea Nitrogen 16 mg/dL (7-17); Carbon Dioxide 22 mmol/L (22-30); Chloride 109 mmol/L (98-107); Glucose 106 mg/dL (74-99); Non-African American GFR(CKD) >90 (>60 ml/min/1.73 sqM); Potassium 3.9 mmol/L (3.5-5.1); Sodium 138 mmol/L (137-145)
[2019-10-29] MEDS ORDERED: COENZYME Q10 10 MG PO SCH (09:00)
[2019-10-29] MEDS ORDERED: CRANBERRY FRUIT 250 MG PO SCH (09:00)
[2019-10-29] MEDS ORDERED: NON FORMULARY DRUG (Omeprazole [Omeprazole] 20 MG) PO SCH (09:00)
[2019-10-29] MEDS ORDERED: LEVOFLOXACIN 500MG-D5W PMX 500 MG in DEXTROSE/WATER 1 100ML.BAG IVPB SCH (09:00)
[2019-10-29] MEDS: HEPARIN SODIUM,PORCINE 5,000 UNIT/ML 1 ML VIAL SQ SCH ×2 (10:16→20:42)
[2019-10-29] MEDS: levETIRAcetam 500 MG TAB PO SCH ×2 (10:16→20:42)
[2019-10-29] MEDS: ANASTROZOLE 1 MG TAB PO SCH (10:17)
[2019-10-29] MEDS: CARVEDILOL 12.5 MG TAB PO SCH ×2 (10:17→16:56)
[2019-10-29] MEDS: ASPIRIN 81 MG PO SCH (10:17)
[2019-10-29] MEDS: PANTOPRAZOLE 40 MG TABLET PO SCH (10:17)
[2019-10-29] MEDS: busPIRone HCl 5 MG TAB PO SCH ×2 (10:18→20:42)
[2019-10-29] MEDS: CHOLECALCIFEROL 1,000 UNIT TAB PO SCH (10:18)
[2019-10-29] MEDS: FOLIC ACID 1 MG TAB PO SCH (10:18)
[2019-10-29] MEDS: MULTIVITAMINS, THERA 1 EACH TAB PO SCH (10:18)
[2019-10-29] MEDS: CYANOCOBALAMIN 500 MCG TAB PO SCH (10:18)
[2019-10-29] MEDS: LACOSAMIDE 50 MG TABLET PO SCH ×2 (10:18→20:43)
[2019-10-29] MEDS: metFORMIN 500 MG TAB PO SCH ×2 (10:19→20:42)
[2019-10-29] MEDS: THIAMINE 100 MG TAB PO SCH (10:19)
[2019-10-29 11:25] LABS: Glucose,Whole Blood 262 mg/dL (75-99)
[2019-10-29] MEDS: INSULIN ASPART (NovoLOG) 100 UNIT/ML VIAL SQ SCH ×3 (13:57→20:43)
--- NOTE | 2019-10-29 15:23 | P.CNNES ---
History of Present Illness Consult date: 10/29/19 Requesting physician: Marcin Mixon Reason for Consult: Generalized weakness, fall, possible loss of consciousness History of Present Illness: Patient is a 74-year-old female, who was recently seen in the hospital on 10/25 for evaluation of possible TIA. Patient had at that time presented with difficulty with ambulation due to weakness in her lower extremities. Patient underwent MRI of the brain, which revealed no acute stroke. CTA of head and neck showed no large vessel occlusion, dissection or stenosis. Patient was discharged home on aspirin, on the night of 10/27/2019. Patient apparently came back to the ER yesterday, 10/28/2027 2 PM because of leg weakness, unable to hold herself up and eventually fell down onto her buttocks. No head injury. Patient's was not able to get her up, therefore he called the ambulance and patient was brought to the hospital. Patient at present is very tearful, stating "I like to know what happened". She states "I'm disappointed for being brought here". She says that she did not fall down, and nobody has explained to her what happened. No seizure activity was witnessed by her . Patient underwent an EKG, which revealed normal sinus rhythm with left axis deviation. Chest x-ray showed no definite acute radiographic process. Prominent aortic ectasia redemonstrated. CBC is normal. Chem-7 is normal, TSH 1.50. Patient further stated, that she is very concerned, as her mother suffers from Alzheimer's dementia, 75 years of age. Her father is not able to take care of her. She believes that both of her parents are alive, and are at home. She also is very concerned and states that "it's hard on dad because of me being ill". Review of Systems Denies any headache, problem with the vision, hoarseness or throat dysphagia. She has decreased appetite. She feels generalized weak. No new numbness tingling or focal weakness. 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 History of Any Multi-Drug Resistant Organisms: CRE, MRSA Date of last positivie culture/infection: 08/13/18 MDRO Source:: urine. e coli,mrsa Past Surgical History: Hysterectomy Additional Past Surgical History / Comment(s): Total hysterectomy, right hip arthroplasty, laser surgery of the right eye of her bleeding, bladder parrish spension, right elbow metal plate , gamma knife procedure for meningoma lt side of brain 03-11-17 Past Anesthesia/Blood Transfusion Reactions: No Reported Reaction Past Psychological History: Anxiety, Bipolar, Depression Additional Psychological History / Comment(s): 03/19/2016- treated for psychosis, bipolar depression, paranoid symptoms and hearing voices. pt lives with her spouse in ranch style home that has 2 steps to enter. has a pet cat. no outside services recieved-daughter heips out when needed. no medical equipment except for cane. Smoking Status: Former smoker Past Alcohol Use History: None Reported Additional Past Alcohol Use History / Comment(s): Patient was a smoker for approx 6 years and quit in 1979. She denies any medical marijuana, marijuana, street drug or alcohol use. She uses a cane for ambulation since the intracra nial bleed in July 2015. Past Drug Use History: None Reported - Past Family History Father Family Medical History: No Reported History Additional Family Medical History / Comment(s): Father is alive in his 80s and is a smoker. Patient does not know his medical history. Mother Family Medical History: No Reported History Additional Family Medical History / Comment(s): Mother at age 79 from Alzheimer's dementia. Sister(s) Family Medical History: Congestive Heart Failure (CHF) Additional Family Medical History / Comment(s): She has one sister that is from heart failure. Patient does not have any brothers. Patient has 2 daughters that are 45 and 42 years of age with no major medical problems. Medications and Allergies Home Medications Medication Instructions Recorded Confirmed Type Anastrozole [Arimidex] 1 mg PO DAILY 12/22/16 10/28/19 History Melatonin 3 mg PO HS 10/13/17 10/28/19 History Cholecalciferol [Vitamin D3 (25 1,000 unit PO DAILY 06/05/18 10/28/19 History Mcg = 1000 Iu)] Cyanocobalamin (Vitamin B-12) 1,000 mcg PO DAILY 06/05/18 10/28/19 History [Vitamin B-12] Multivitamins, Thera [Multivitamin 1 tab PO DAILY 06/05/18 10/28/19 History (formulary)] busPIRone HCl [Buspar] 10 mg PO HS 06/05/18 10/28/19 History metFORMIN HCL [Glucophage] 500 mg PO BID 06/06/18 10/28/19 History busPIRone HCl [Buspar] 5 mg PO DAILY 08/13/18 10/28/19 History Atorvastatin Calcium [Lipitor] 10 mg PO HS 09/05/18 10/28/19 History risperiDONE [RisperDAL] 1 mg PO HS 09/05/18 10/28/19 History Omeprazole 20 mg PO DAILY 10/15/18 10/28/19 History Carvedilol 25 mg PO BID 12/26/18 10/28/19 History Cranberry Fruit Concentrate [Azo 250 mg PO DAILY 12/26/18 10/28/19 History Cranberry] Co-Q10 10 mg PO DAILY 07/09/19 10/28/19 History Acetaminophen [Tylenol] 325 mg PO Q4H PRN 10/24/19 10/28/19 History Lacosamide [Vimpat] 150 mg PO BID 10/24/19 10/28/19 History levETIRAcetam [Keppra] 500 mg PO BID 10/24/19 10/28/19 History Aspirin EC [Ecotrin Low Dose] 81 mg PO DAILY 10/28/19 10/28/19 History Empagliflozin [Jardiance] 10 mg PO DAILY 10/28/19 10/28/19 History Tolterodine Tartrate [Detrol LA] 4 mg PO HS 10/28/19 10/28/19 History Allergies Allergy/AdvReac Type Severity Reaction Status Date / Time Sulfa (Sulfonamide Allergy Unknown Unknown Verified 10/28/19 19:15 Antibiotics) egg AdvReac Diarrhea Verified 10/28/19 19:15 solifenacin [From Vesicare] AdvReac Confusion/s Verified 10/28/19 19:15 haking Physical Examination - Vital Signs Vital Signs: Vital Signs Temp Pulse Pulse Pulse Pulse Pulse Resp 10/29/19 12:05 98.4 F 69 75 61 17 10/29/19 08:57 10/29/19 05:03 97 F L 63 18 10/28/19 21:21 97.8 F 75 18 10/28/19 20:50 97.8 F 75 18 10/28/19 17:30 64 14 10/28/19 17:00 75 11 L 10/28/19 16:30 63 15 10/28/19 16:00 72 12 10/28/19 15:30 73 12 BP BP BP BP Pulse Ox 10/29/19 12:05 159/83 147/80 166/80 98 10/29/19 08:57 96 10/29/19 05:03 121/82 107/74 113/67 96 10/28/19 21:21 167/93 151/87 168/86 97 10/28/19 20:50 167/93 151/87 168/86 97 10/28/19 17:30 150/69 98 10/28/19 17:00 157/85 98 10/28/19 16:30 159/87 98 10/28/19 16:00 157/85 97 10/28/19 15:30 143/75 98 Intake and Output 10/29/19 10/29/19 10/29/19 06:59 14:59 22:59 Intake Total 725 Balance 725 Intake: Intake, IV Titration 725 Amount Sodium Chloride 0.9% 1, 725 000 ml @ 75 mls/hr IV . [id number] ONE Rx#:[id number] Other: Voiding Method Toilet Toilet Diaper Diaper Incontinent Incontinent # Voids 3 # Bowel Movements 1 On examination patient is an elderly female, who appears somewhat depressed, tearful. Patient states that it is January and the year is 1999. She t hinks that she is in a halfway. She knows that she is in [facility]. Patient can name and repeat. Patient does not have any obvious expressive difficulty noted today. Patient is disoriented, stating her parents, who are are at her home concerning about her. On cranial nerve examination pupils are round and reactive to light, visual sanders are full on confrontation, extraocular muscles are intact. Face is symmetric and tongue protrudes the midline. Palatal elevation sensation normal. Muscle strength is normal in the arms and legs. No obvious ataxia. Tone and bulk of muscles normal. Patient has bilateral Babinski. Results - Laboratory Findings CBC and BMP: 10/29/19 08:16 10/29/19 08:16 Abnormal Lab Findings: Abnormal Labs 10/28/19 10/28/19 10/28/19 15:03 15:30 21:18 Chloride Carbon Dioxide 21 L BUN 19 H Creatinine 0.48 L Glucose 129 H POC Glucose (mg/dL) 128 H Urine Appearance Cloudy H Urine Glucose (UA) 3+ H Urine Nitrite Positive H Urine WBC 160 H Urine WBC Clumps Few H Urine Bacteria Many H Urine Mucus Rare H 10/29/19 10/29/19 10/29/19 06:59 08:16 11:24 Chloride 109 H Carbon Dioxide BUN Creatinine 0.48 L Glucose 106 H POC Glucose (mg/dL) 112 H 262 H Urine Appearance Urine Glucose (UA) Urine Nitrite Urine WBC Urine WBC Clumps Urine Bacteria Urine Mucus Assessment and Plan Assessment: * 74-year-old female with vascular dementia, admitted with a fall of unclear etiology. No seizure reported by her . Current examination is nonfocal. Patient may have gait imbalance related to inactivity/deconditioning, previous stroke, dementia. Her B12 level was normal 941 on 06/07/2019. * History of cerebral meningioma, status post gamma knife. * History of CVA/intracranial hemorrhage in 2014 * Seizure disorder * Vascular dementia Plan: * Patient will be continued on aspirin 81 mg daily. * Patient's seizures are well controlled. She will be continued on Keppra 500 mg twice a day and Vimpat 150 mg twice a day. * PT OT. * May need transfer to long-term care. * Neurology coverage not available on the weekend.
--- NOTE | 2019-10-29 16:02 | PN ---
PROGRESS NOTE DATE OF SERVICE: 10/29/2019 This 74-year-old woman who was admitted with weakness, syncope and fall also had change in mental status. The patient was being monitored closely. Patient apparently had a UTI also, present on admission. The chest x-ray which was done at the time of admission, which was reviewed personally by me, showed no definite acute process. Prominent aortic ectasia was re-demonstrated. Past medical history reviewed. REVIEW OF SYSTEMS: CARDIOVASCULAR SYSTEM: No angina, palpitations. RESPIRATORY SYSTEM: As mentioned earlier. GI: No nausea, vomiting. : No dysuria or retention. NERVOUS SYSTEM: No numbness, weakness. CURRENT MEDICATIONS: Reviewed. They include: 1. Tylenol p.r.n. 2. Arimidex 1 mg p.o. daily. 3. Aspirin 81 mg. 4. Lipitor 10 mg at bedtime. 5. Buspar 10 mg at bedtime. 6. Coreg 25 mg b.i.d. 7. Vitamin D3. 8. Vitamin B12 1000 mg p.o. daily. 9. Folic acid 1 mg daily. 10.Heparin 5000 units subcutaneously b.i.d. 11.NovoLog scale. 12.Vimpat 150 mg p.o. b.i.d. 13.Keppra 500 mg p.o. b.i.d. 14.Levaquin 500 mg p.o. daily. 15.Melatonin 3 mg at bedtime. 16.Glucophage 500 mg p.o. b.i.d. 17.Multivitamins 1 p.o. daily. 18.Jardiance 10 mg p.o. daily. 19.Ditropan XL 10 mg at bedtime. 20.Protonix 40 mg daily. 21.Risperdal 1 mg at bedtime. 22.Vitamin B1 100 mg p.o. daily. PHYSICAL EXAMINATION: Patient alert and oriented x3. Pulse 69, blood pressure 159/83, respiration 20, temperature 98.4, pulse ox 98% on room air. HEENT: Conjunctivae normal. NECK: No jugular venous distention. CARDIOVASCULAR SYSTEM: S1, S2 muffled. RESPIRATORY SYSTEM: Breath sounds diminished at the bases. Bilateral scattered rhonchi and crackles. ABDOMEN: Soft, non-tender. No mass palpable. LEGS: No edema. No swelling. NERVOUS SYSTEM: Higher functions as mentioned earlier. Moves all 4 limbs. No focal motor or sensory deficit. LYMPHATICS: No lymph node palpable in neck, axillae or groin. SKIN: No ulcer, rash, bleeding. JOINTS: No active deforming arthropathy. LABS: CBC within normal limits. Sodium 138, potassium 3.9. Glucose 106. ASSESSMENT: 1. Change in mental status and gait dysfunction; possible acute transient ischemic attack. 2. Rule out cardiac arrhythmia. 3. Acute urinary tract infection, present on admission, on IV antibiotics. 4. History of multiple transient ischemic attacks, history. 5. 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 6. History of intracranial bleeding and surgery. 7. Encephalomalacia. 8. Diabetes mellitus, type 2. 9. Gastroesophageal reflux disease. 10.Hypertension. 11.Hyperlipidemia. 12.Seizure disorder. 13.Gait dysfunction. 14.History of breast cancer. 15.Multiple urinary tract infections, Escherichia coli in the past. 16.History of meningioma, left side of the brain. 17.History of lumpectomy. 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 19.History of hysterectomy. 20.Anxiety, bipolar, depression. 21.Remote history of nicotine dependence. RECOMMENDATIONS AND DISCUSSION: I recommend to continue current medications, continue with symptomatic treatment. Continue with the broad-spectrum IV antibiotics. PT/OT evaluation. The patient might need inpatient rehab in COUNTS INCLUDE 234 BEDS AT THE [facility] for continued monitoring. We will follow closely. Guarded prognosis. Further recommendations to follow. MMTHOMASL / TAISHAN: [id number] /
[2019-10-29 16:55] LABS: Glucose,Whole Blood 93 mg/dL (75-99)
[2019-10-29 20:03] LABS: Glucose,Whole Blood 188 mg/dL (75-99)
[2019-10-29] MEDS: MELATONIN 3 MG TABLET PO SCH (20:42)
[2019-10-29] MEDS: ATORVASTATIN 10 MG TAB PO SCH (20:42)
[2019-10-29] MEDS: risperiDONE 1 MG TAB PO SCH (20:43)
[2019-10-29] MEDS: OXYBUTYNIN 10 MG TAB.ER.24 PO SCH (20:43)
--- NOTE | 2019-10-29 22:54 | P.CONS ---
History of Present Illness - Reason for Consult Consult date: 10/29/19 Urinary tract infection Requesting physician: Marcin Mixon - Chief Complaint Weakness and fall x 1 day - History of Present Illness Patient is a 74-year-old female who has been brought to the hospital by the EMS after pending the patient did have a fall at home and was unable to get up, according to the the patient was started on the chair however she was so weak she fell down backwards on her buttocks and then wasn't able to stand up hence EMS was called who brought the patient to the hospital because of feeling weak and no energy though denies any focal weakness denies any pain to the lower back or the gluteal area patient denies any headache no urinary symptoms no chest pain shortness of breath or cough no bone pain no diarrhea on arrival to the ER the patient has been afebrile her white count was normal. Chest x-ray was negative for any pneumonia, the patient did have mildly positive UA she has been diagnosed with urinary tract infection, patient did have mild symptoms of urinary urgency but no burning or frequency or suprapubic pain, the patient has been admitted to the hospital infectious disease was consulted for further recommendations regarding antibiotic therapy Review of Systems Positive point has been mentioned in the HPI rest of the systems are negative Past Medical History Past Medical History: Cancer, CVA/TIA, Diabetes Mellitus, GERD/Reflux, Hyperl ipidemia, Hypertension, Seizure Disorder Additional Past Medical History / Comment(s): Intracranial bleed July 2015, overactive bladder, multi UTI- ecoli, Breast cancer,meningoma lt side of brain - had gamma knife procedure march 11 2017, RT bx,lumpectomy, lymph node removal." had seizure like symptoms on several ocassions but never got a clear answer if it was". History of Any Multi-Drug Resistant Organisms: CRE, MRSA Year Discovered:: 08/13/18 MDRO Source:: urine. e coli,mrsa Past Surgical History: Hysterectomy Additional Past Surgical History / Comment(s): Total hysterectomy, right hip arthroplasty, laser surgery of the right eye of her bleeding, bladder suspension, right elbow metal plate , gamma knife procedure for meningoma lt side of brain 03-11-17 Past Anesthesia/Blood Transfusion Reactions: No Reported Reaction Past Psychological History: Anxiety, Bipolar, Depression Additional Psychological History / Comment(s): 03/19/2016- treated for psychosis, bipolar depression, paranoid symptoms and hearing voices. pt lives with her spouse in ranch style home that has 2 steps to enter. has a pet cat. no outside services recieved-daughter heips out when needed. no medical equipment except for cane. Smoking Status: Former smoker Past Alcohol Use History: None Reported Additional Past Alcohol Use History / Comment(s): Patient was a smoker for approx 6 years and quit in 1979. She denies any medical marijuana, marijuana, street drug or alcohol use. She uses a cane for ambulation since the intracranial bleed in July 2015. Past Drug Use History: None Reported - Past Family History Father Family Medical History: No Reported History Additional Family Medical History / Comment(s): Father is alive in his 80s and is a smoker. Patient does not know his medical history. Mother Family Medical History: No Reported History Additional Family Medical History / Comment(s): Mother at age 79 from Alzheimer's dementia. Sister(s) Family Medical History: Congestive Heart Failure (CHF) Additional Family Medical History / Comment(s): She has one sister that is from heart failure. Patient does not have any brothers. Patient has 2 daughters that are 45 and 42 years of age with no major medical problems. Medications and Allergies Home Medications Medication Instructions Recorded Confirmed Type Anastrozole [Arimidex] 1 mg PO DAILY 12/22/16 10/28/19 History Melatonin 3 mg PO HS 10/13/17 10/28/19 History Cholecalciferol [Vitamin D3 (25 1,000 unit PO DAILY 06/05/18 10/28/19 History Mcg = 1000 Iu)] Cyanocobalamin (Vitamin B-12) 1,000 mcg PO DAILY 06/05/18 10/28/19 History [Vitamin B-12] Multivitamins, Thera [Multivitamin 1 tab PO DAILY 06/05/18 10/28/19 History (formulary)] busPIRone HCl [Buspar] 10 mg PO HS 06/05/18 10/28/19 History metFORMIN HCL [Glucophage] 500 mg PO BID 06/06/18 10/28/19 History busPIRone HCl [Buspar] 5 mg PO DAILY 08/13/18 10/28/19 History Atorvastatin Calcium [Lipitor] 10 mg PO HS 09/05/18 10/28/19 History risperiDONE [RisperDAL] 1 mg PO HS 09/05/18 10/28/19 History Omeprazole 20 mg PO DAILY 10/15/18 10/28/19 History Carvedilol 25 mg PO BID 12/26/18 10/28/19 History Cranberry Fruit Concentrate [Azo 250 mg PO DAILY 12/26/18 10/28/19 History Cranberry] Co-Q10 10 mg PO DAILY 07/09/19 10/28/19 History Acetaminophen [Tylenol] 325 mg PO Q4H PRN 10/24/19 10/28/19 History Lacosamide [Vimpat] 150 mg PO BID 10/24/19 10/28/19 History levETIRAcetam [Keppra] 500 mg PO BID 10/24/19 10/28/19 History Aspirin EC [Ecotrin Low Dose] 81 mg PO DAILY 10/28/19 10/28/19 History Empagliflozin [Jardiance] 10 mg PO DAILY 10/28/19 10/28/19 History Tolterodine Tartrate [Detrol LA] 4 mg PO HS 10/28/19 10/28/19 History Allergies Allergy/AdvReac Type Severity Reaction Status Date / Time Sulfa (Sulfonamide Allergy Unknown Unknown Verified 10/28/19 19:15 Antibiotics) egg AdvReac Diarrhea Verified 10/28/19 19:15 solifenacin [From Vesicare] AdvReac Confusion/s Verified 10/28/19 19:15 haking Physical Exam Vitals: Vital Signs Temp Pulse Pulse Resp BP BP BP 10/29/19 08:57 10/29/19 05:03 97 F L 63 18 121/82 107/74 10/28/19 21:21 97.8 F 75 18 167/93 151/87 10/28/19 20:50 97.8 F 75 18 167/93 151/87 10/28/19 17:30 64 14 150/69 10/28/19 17:00 75 11 L 157/85 10/28/19 16:30 63 15 159/87 10/28/19 16:00 72 12 157/85 10/28/19 15:30 73 12 143/75 10/28/19 14:26 98.2 F 97 18 153/72 BP Pulse Ox 10/29/19 08:57 96 10/29/19 05:03 113/67 96 10/28/19 21:21 168/86 97 10/28/19 20:50 168/86 97 10/28/19 17:30 98 10/28/19 17:00 98 10/28/19 16:30 98 10/28/19 16:00 97 10/28/19 15:30 98 10/28/19 14:26 98 Intake and Output 10/28/19 10/29/19 10/29/19 22:59 06:59 14:59 Intake Total 725 Balance 725 Intake: Intake, IV Titration 725 Amount Sodium Chloride 0.9% 1, 725 000 ml @ 75 mls/hr IV . [id number] ONE Rx#:[id number] Other: Voiding Method Toilet Diaper Incontinent # Voids 2 3 # Bowel Movements 1 Weight 72.575 kg GENERAL DESCRIPTION: An elderly female up in the chair, no distress. No tachypnea or accessory muscle of respiration use. HEENT: Shows Pallor , no scleral icterus. Oral mucous membrane is dry. No pharyngeal erythema or thrush NECK: Trachea central, no thyromegaly. LUNGS: Unlabored breathing. Clear to auscultation anteriorly. No wheeze or crackle. HEART: S1, S2, regular rate and rhythm. No loud murmur ABDOMEN: Soft, no tenderness , guarding or rigidity, no organomegaly EXTREMITIES: No edema of feet. SKIN: No rash, no masses palpable. NEUROLOGICAL: The patient is awake, alert, oriented x3, mood and affect normal. Results CBC & Chem 7: 10/29/19 08:16 10/29/19 08:16 Labs: Abnormal Lab Results - Last 24 Hours (Table) 10/28/19 10/28/19 10/28/19 Range/Units 15:03 15:30 21:18 Chloride (98-107) mmol/L Carbon Dioxide 21 L (22-30) mmol/L BUN 19 H (7-17) mg/dL Creatinine 0.48 L (0.52-1.04) mg/dL Glucose 129 H (74-99) mg/dL POC Glucose (mg/dL) 128 H (75-99) mg/dL Urine Appearance Cloudy H (Clear) Urine Glucose (UA) 3+ H (Negative) Urine Nitrite Positive H (Negative) Urine WBC 160 H (0-5) /hpf Urine WBC Clumps Few H (None) /hpf Urine Bacteria Many H (None) /hpf Urine Mucus Rare H (None) /hpf 10/29/19 10/29/19 10/29/19 Range/Units 06:59 08:16 11:24 Chloride 109 H (98-107) mmol/L Carbon Dioxide (22-30) mmol/L BUN (7-17) mg/dL Creatinine 0.48 L (0.52-1.04) mg/dL Glucose 106 H (74-99) mg/dL POC Glucose (mg/dL) 112 H 262 H (75-99) mg/dL Urine Appearance (Clear) Urine Glucose (UA) (Negative) Urine Nitrite (Negative) Urine WBC (0-5) /hpf Urine WBC Clumps (None) /hpf Urine Bacteria (None) /hpf Urine Mucus (None) /hpf Microbiology - Last 24 Hours (Table) 10/28/19 15:30 Urine Culture - Preliminary Urine,Voided Assessment and Plan Assessment: 1-patient admitted to the hospital with generalized weakness which is likely multifactorial she did have a positive UA with minimal urinary symptoms underlying UTI not entirely excluded this patient who did have a recent urine culture which grew E. coli that was resistant to Rocephin (1) Urinary tract infection Current Visit: Yes Status: Acute Code(s): N39.0 - URINARY TRACT INFECTION, SITE NOT SPECIFIED SNOMED Code(s): 97104058 Plan: 1-Levaquin 500 mg daily for 3-5 days for mild cystitis as clinically doubt deep infection 2-gentle IV fluid We will follow on clinical condition and cultures to further adjust medication if needed Thank you for this consultation will follow this patient with you
[2019-10-30 06:56] LABS: Glucose,Whole Blood 114 mg/dL (75-99)
[2019-10-30 07:48] LABS: Basophils % (A) 1 %; Eosinophils # (A) 0.2 k/uL (0-0.7); Eosinophils % (A) 3 %; HCT 37.1 % (34.0-46.0); HGB 12.2 gm/dL (11.4-16.0); Lymphocytes # (A) 1.5 k/uL (1.0-4.8); Lymphocytes % (A) 22 %; MCH 29.1 pg (25.0-35.0); MCHC 32.8 g/dL (31.0-37.0); MCV 88.8 fL (80.0-100.0); Mean Platelet Volume 7.3; Monocytes # (A) 0.4 k/uL (0-1.0); Monocytes % (A) 6 %; Neutrophils # (A) 4.4 k/uL (1.3-7.7); Neutrophils % (A) 65 %; Platelet Count 220 k/uL (150-450); RBC 4.17 m/uL (3.80-5.40); RDW 12.8 % (11.5-15.5); WBC 6.7 k/uL (3.8-10.6)
[2019-10-30 07:55] LABS: Potassium 3.8 mmol/L (3.5-5.1)
[2019-10-30 07:56] LABS: African American GFR (CKD) >90 (>60 ml/min/1.73 sqM); Anion Gap 7 mmol/L; Blood Urea Nitrogen 9 mg/dL (7-17); Calcium 9.4 mg/dL (8.4-10.2); Carbon Dioxide 22 mmol/L (22-30); Chloride 109 mmol/L (98-107); Glucose 111 mg/dL (74-99); Non-African American GFR(CKD) >90 (>60 ml/min/1.73 sqM); Sodium 138 mmol/L (137-145)
[2019-10-30] MEDS: INSULIN ASPART (NovoLOG) 100 UNIT/ML VIAL SQ SCH ×4 (07:58→20:28)
[2019-10-30] MEDS: ANASTROZOLE 1 MG TAB PO SCH (08:01)
[2019-10-30] MEDS: HEPARIN SODIUM,PORCINE 5,000 UNIT/ML 1 ML VIAL SQ SCH ×2 (08:01→20:28)
[2019-10-30] MEDS: PANTOPRAZOLE 40 MG TABLET PO SCH (08:02)
[2019-10-30] MEDS: CARVEDILOL 12.5 MG TAB PO SCH ×2 (08:02→16:23)
[2019-10-30] MEDS: busPIRone HCl 5 MG TAB PO SCH ×2 (08:02→20:29)
[2019-10-30] MEDS: levETIRAcetam 500 MG TAB PO SCH ×2 (08:03→20:29)
[2019-10-30] MEDS: LACOSAMIDE 50 MG TABLET PO SCH ×2 (08:03→20:29)
[2019-10-30] MEDS: LEVOFLOXACIN 500 MG TAB PO SCH (08:04)
[2019-10-30] MEDS: CHOLECALCIFEROL 1,000 UNIT TAB PO SCH (08:04)
[2019-10-30] MEDS: MULTIVITAMINS, THERA 1 EACH TAB PO SCH (08:04)
[2019-10-30] MEDS: metFORMIN 500 MG TAB PO SCH ×2 (08:05→20:29)
[2019-10-30] MEDS: CYANOCOBALAMIN 500 MCG TAB PO SCH (08:05)
[2019-10-30] MEDS: Empagliflozin [Jardiance] 10 MG PO SCH (08:13)
[2019-10-30] MEDS: FOLIC ACID 1 MG TAB PO SCH (08:14)
[2019-10-30] MEDS: ASPIRIN 81 MG PO SCH (08:14)
[2019-10-30] MEDS: THIAMINE 100 MG TAB PO SCH (08:14)
[2019-10-30 11:21] LABS: Glucose,Whole Blood 227 mg/dL (75-99)
[2019-10-30 16:30] LABS: Glucose,Whole Blood 111 mg/dL (75-99)
[2019-10-30 19:58] LABS: Glucose,Whole Blood 173 mg/dL (75-99)
[2019-10-30] MEDS: MELATONIN 3 MG TABLET PO SCH (20:29)
[2019-10-30] MEDS: OXYBUTYNIN 10 MG TAB.ER.24 PO SCH (20:29)
[2019-10-30] MEDS: ATORVASTATIN 10 MG TAB PO SCH (20:29)
[2019-10-30] MEDS: risperiDONE 1 MG TAB PO SCH (20:29)
--- NOTE | 2019-10-30 23:27 | PN ---
PROGRESS NOTE DATE OF SERVICE: 10/30/2019. This 74-year-old woman who was admitted with weakness, syncope and fall also had possible acute transient ischemic attack. Patient was seen by Infectious Disease and as well as Neurology and Neurology has recommended continue the current medications. Antiplatelet agents added. Decondition was also suspected. There is no history of fever, rigors or chills. No history of headache, loss of consciousness or seizures. The patient is confused. Patient had sitter for patient safety at this time. PAST MEDICAL HISTORY: Reviewed. REVIEW OF SYSTEMS: Could not be taken. The patient is confused. MEDICATIONS: Current medications are reviewed and include: 1. Tylenol p.r.n. 2. Arimidex 1 mg p.o. daily. 3. Aspirin 81 mg. 4. Lipitor 10 mg q.h.s. 5. BuSpar 10 mg q.h.s. and 5 mg p.o. daily. 6. Coreg 25 mg a.c. b.i.d. 7. Vitamin D3 1000 daily. 8. Vitamin D 2000 daily. 9. Folic acid 1 mg. 10.Heparin 5000 subcu b.i.d. 11.NovoLog scale. 12.Vimpat 150 mg p.o. b.i.d. 13.Keppra 500 mg p.o. b.i.d. 14.Levaquin 500 mg p.o. daily. 15.Melatonin. 16.Glucophage. 17.Multivitamins. 18.Ditropan. 19.Protonix. 21.Vitamin B1. 22.Doses reviewed. PHYSICAL EXAM: Patient is conscious, confused. Pulse 60. Blood pressure 127/74, respirations 16, temperature 97.2, pulse ox 98% on room air. HEENT: Conjunctivae normal. NECK: No JVD. CARDIOVASCULAR: S1, S2 muffled. RESPIRATORY: Breath sounds diminished in the bases. Bilateral scattered rhonchi and crackles. ABDOMEN: Soft, nontender. LEGS are no edema. No swelling. CENTRAL NERVOUS SYSTEM: Higher functions as mentioned. Moves all four limbs. Lymphatics: No lymph nodes palpable in the neck, axillae or groin. SKIN: No ulcer, rash or bleeding. JOINTS: No active deforming arthropathy. LABS: The brain MRI stable. A brain CT done recently, which was reviewed personally by me, showed some atrophy and as well as dilatation ventricle also. ASSESSMENT: 1. Change in mental status and gait dysfunction, possible acute transient ischemic attack. 2. Possible underlying dementia. 3. Rule out cardiac arrhythmia. 4. Acute urinary tract infection present on admission, on IV antibiotics. 5. Gait dysfunction. 6. Generalized deconditioning, weakness and weakness. 7. History of multiple transient ischemic attacks history. 8. Encephalomalacia cerebral pontine angle mass in the MRI scan. 9. History of intracranial bleeding and surgery. 10.Diabetes mellitus type 2. 11.Gastroesophageal reflux disease. 12.Hypertension. 13.Hyperlipidemia. 14.Seizure disorder. 15.Gait dysfunction. 16.History of breast cancer. 17.History of multiple urinary tract infections/E coli in the past. 18.History of meningioma left side of the brain. 19.History of laminectomy. 20.History of CRE and MRSA. 21.History of appendectomy. 22.History of anxiety, bipolar depression. 23.Remote history of nicotine dependence. RECOMMENDATIONS AND DISCUSSION: Recommend to continue current medications, management and symptomatic treatment. Continue the empiric antibiotics. Otherwise, the final cultures are pending. Gram- negative bacilli grown from the culture. Other than that, we will continue to monitor. PT/OT evaluation. I would strongly recommend inpatient hospital admission for more than 2 days because of multiple complex medical issues as mentioned earlier. I recommend possible PT/OT evaluation and treatment in the ECF also. Further recommendations to follow. WALTER / TAISHAN: [id number] / SRIDEVI
--- NOTE | 2019-10-31 05:22 | PN ---
PROGRESS NOTE DATE OF SERVICE: 10/30/2019 REASON FOR FOLLOWUP: Urinary tract infection. INTERVAL HISTORY: The patient is currently afebrile. She is feeling better. She is more awake and alert. Denies having any chest pain. No shortness of breath. No cough. No nausea, no vomiting and no diarrhea. PHYSICAL EXAMINATION: Blood pressure 136/80 with a pulse of 68, temperature 96.8. She is 97% on room air. General description is an elderly female up in the chair in no distress. Respiratory system: Unlabored breathing, clear to auscultation anteriorly. Heart S1, S2. Regular rate and rhythm. Abdomen soft, no tenderness. LABS: Hemoglobin is 12.1, white count 4.7, creatinine 2.53. Urine showing gram-negative. Blood culture has been negative. DIAGNOSTIC IMPRESSION AND PLAN: Patient admitted to the hospital with mental status changes, likely multifactorial. Did have a component of urinary tract infection, urine showing Gram-negative. Patient is covered with Levaquin to continue and monitor clinical course closely. Continue supportive care. MMODL / IJN: [id number] /
[2019-10-31 07:00] LABS: Glucose,Whole Blood 95 mg/dL (75-99)
[2019-10-31 07:17] LABS: Basophils % (A) 1 %; Eosinophils # (A) 0.1 k/uL (0-0.7); Eosinophils % (A) 2 %; HCT 33.7 % (34.0-46.0); HGB 11.7 gm/dL (11.4-16.0); Lymphocytes # (A) 1.4 k/uL (1.0-4.8); Lymphocytes % (A) 28 %; MCH 30.4 pg (25.0-35.0); MCHC 34.5 g/dL (31.0-37.0); MCV 87.9 fL (80.0-100.0); Mean Platelet Volume 6.9; Monocytes # (A) 0.3 k/uL (0-1.0); Monocytes % (A) 6 %; Neutrophils # (A) 3.1 k/uL (1.3-7.7); Neutrophils % (A) 60 %; Platelet Count 210 k/uL (150-450); RBC 3.84 m/uL (3.80-5.40); WBC 5.2 k/uL (3.8-10.6)
[2019-10-31 07:38] LABS: African American GFR (CKD) >90 (>60 ml/min/1.73 sqM); Anion Gap 8 mmol/L; Blood Urea Nitrogen 14 mg/dL (7-17); Calcium 9.3 mg/dL (8.4-10.2); Carbon Dioxide 23 mmol/L (22-30); Chloride 108 mmol/L (98-107); Glucose 100 mg/dL (74-99); Non-African American GFR(CKD) >90 (>60 ml/min/1.73 sqM); Potassium 3.8 mmol/L (3.5-5.1); Sodium 139 mmol/L (137-145)
[2019-10-31] MEDS: INSULIN ASPART (NovoLOG) 100 UNIT/ML VIAL SQ SCH ×4 (07:59→20:12)
[2019-10-31] MEDS: Empagliflozin [Jardiance] 10 MG PO SCH (08:00)
[2019-10-31] MEDS: ASPIRIN 81 MG PO SCH (08:01)
[2019-10-31] MEDS: busPIRone HCl 5 MG TAB PO SCH ×2 (08:01→20:12)
[2019-10-31] MEDS: LACOSAMIDE 50 MG TABLET PO SCH ×2 (08:02→20:12)
[2019-10-31] MEDS: CYANOCOBALAMIN 500 MCG TAB PO SCH (08:02)
[2019-10-31] MEDS: MULTIVITAMINS, THERA 1 EACH TAB PO SCH (08:02)
[2019-10-31] MEDS: FOLIC ACID 1 MG TAB PO SCH (08:02)
[2019-10-31] MEDS: CARVEDILOL 12.5 MG TAB PO SCH ×2 (08:02→17:35)
[2019-10-31] MEDS: ANASTROZOLE 1 MG TAB PO SCH (08:02)
[2019-10-31] MEDS: THIAMINE 100 MG TAB PO SCH (08:02)
[2019-10-31] MEDS: LEVOFLOXACIN 500 MG TAB PO SCH (08:02)
[2019-10-31] MEDS: PANTOPRAZOLE 40 MG TABLET PO SCH (08:02)
[2019-10-31] MEDS: CHOLECALCIFEROL 1,000 UNIT TAB PO SCH (08:02)
[2019-10-31] MEDS: metFORMIN 500 MG TAB PO SCH ×2 (08:02→20:13)
[2019-10-31] MEDS: levETIRAcetam 500 MG TAB PO SCH ×2 (08:02→20:13)
[2019-10-31] MEDS: HEPARIN SODIUM,PORCINE 5,000 UNIT/ML 1 ML VIAL SQ SCH ×2 (08:03→20:12)
[2019-10-31 12:02] LABS: Glucose,Whole Blood 133 mg/dL (75-99)
[2019-10-31 17:04] LABS: Glucose,Whole Blood 132 mg/dL (75-99)
[2019-10-31 19:49] LABS: Glucose,Whole Blood 146 mg/dL (75-99)
--- NOTE | 2019-10-31 20:10 | PN ---
PROGRESS NOTE DATE OF SERVICE: 10/31/2019 This 74-year-old woman who was admitted with change in mental status and possible acute TIA, also had acute UTI. The patient cultures are showing E coli which is with some resistance. No chest pain. No palpitations. No fever. The patient is confused on exam. PT/OT is evaluating the patient for possible ECF. EXAM: Alert and oriented x2. Pulse 64. Blood pressure 130/82, respirations 17, temperature 98.2, pulse ox 98% on room air. HEENT: Conjunctivae normal. NECK: No JVD. CARDIOVASCULAR: S1, S2 muffled. RESPIRATORY SYSTEM: Breath sounds diminished at the bases. A few scattered rhonchi. No crackles. ABDOMEN is soft, nontender. LEGS are no edema. No swelling. NERVOUS SYSTEM: Mild diffuse weakness. SKIN: No ulcer, no rash. No bleeding. LABS: WBC 5.2, hemoglobin 11.7. Sodium 139, potassium 3.8, glucose 133. ASSESSMENT: 1. Change in mental status, gait dysfunction, possible acute transient ischemic attack and possible acute metabolic encephalopathy secondary to sepsis. 2. 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 3. History of multiple transient ischemic attacks previously. 4. Encephalomalacia. Central pontine angle mass on the MRI scan. 5. History intractable bleeding surgery. 6. Diabetes mellitus type 2. 7. Gastroesophageal reflux disease. 8. Hypertension. 9. Hyperlipidemia. 10.Seizure disorder. 11.Gait dysfunction. 12.History of breast cancer. 13.Multiple urinary tract infections, E coli in the past. 14.History of meningioma left side of the brain. 15.History of lumpectomy. 16.History of CRE and MRSA. 17.History of hysterectomy. 18.Anxiety, bipolar depression. 19.Remote history of nicotine dependence. RECOMMENDATIONS AND DISCUSSION: In this 74-year-old woman who presented with multiple complex medical issues, we will monitor the patient closely. Continue the current medications, management and symptomatic treatment. Currently the patient is on Levaquin for which the patient is E coli sensitive further. Guarded prognosis. Further recommendations to follow. MMODL / IJN: [id number] /
[2019-10-31] MEDS: ATORVASTATIN 10 MG TAB PO SCH (20:12)
[2019-10-31] MEDS: MELATONIN 3 MG TABLET PO SCH (20:13)
[2019-10-31] MEDS: risperiDONE 1 MG TAB PO SCH (20:13)
[2019-10-31] MEDS: OXYBUTYNIN 10 MG TAB.ER.24 PO SCH (20:13)
[2019-10-31 21:34] VITALS: RESP 16
--- NOTE | 2019-10-31 22:37 | PN ---
PROGRESS NOTE DATE OF SERVICE: 10/31/2019 REASON FOR FOLLOWUP: Urinary tract infection. INTERVAL HISTORY: The patient is currently afebrile. Patient remains pleasantly confused, but no agitation. Denies having any chest pain, shortness of breath or cough. No nausea, vomiting, abdominal pain, no diarrhea. PHYSICAL EXAMINATION: Blood pressure 139/82 with a pulse of 57, temperature 98.3. She is 99% on room air. General description is an elderly female up in the chair in no distress. Respiratory system: Unlabored breathing, clear to auscultation. Heart S1, S2. Regular rate and rhythm. Abdomen soft, no tenderness. LABS: Hemoglobin is 11.7, white count 5.2, BUN of 14, creatinine 0.58. Urine with E coli that is sensitive to Levaquin. DIAGNOSTIC IMPRESSION AND PLAN: Patient with mental status changes likely multifactorial in this patient who did have a component of UTI. Patient is currently covered with Levaquin that she will continue for 5-7 days to finish a course of therapy. Continue supportive care. MMODL / IJN: [id number] /
[2019-11-01 05:20] VITALS: BP 119/61; PULSE 62; TEMP 97.9
[2019-11-01 07:15] LABS: Glucose,Whole Blood 115 mg/dL (75-99)
[2019-11-01] MEDS: INSULIN ASPART (NovoLOG) 100 UNIT/ML VIAL SQ SCH ×2 (07:38→11:47)
[2019-11-01] MEDS: CYANOCOBALAMIN 500 MCG TAB PO SCH (07:38)
[2019-11-01] MEDS: ANASTROZOLE 1 MG TAB PO SCH (07:39)
[2019-11-01] MEDS: CARVEDILOL 12.5 MG TAB PO SCH (07:39)
[2019-11-01] MEDS: busPIRone HCl 5 MG TAB PO SCH (07:39)
[2019-11-01] MEDS: levETIRAcetam 500 MG TAB PO SCH (07:39)
[2019-11-01] MEDS: CHOLECALCIFEROL 1,000 UNIT TAB PO SCH (07:39)
[2019-11-01] MEDS: PANTOPRAZOLE 40 MG TABLET PO SCH (07:39)
[2019-11-01] MEDS: ASPIRIN 81 MG PO SCH (07:40)
[2019-11-01] MEDS: metFORMIN 500 MG TAB PO SCH (07:40)
[2019-11-01] MEDS: LACOSAMIDE 50 MG TABLET PO SCH (07:40)
[2019-11-01] MEDS: HEPARIN SODIUM,PORCINE 5,000 UNIT/ML 1 ML VIAL SQ SCH (07:40)
[2019-11-01] MEDS: LEVOFLOXACIN 500 MG TAB PO SCH (07:41)
[2019-11-01] MEDS: MULTIVITAMINS, THERA 1 EACH TAB PO SCH (07:41)
[2019-11-01] MEDS: Empagliflozin [Jardiance] 10 MG PO SCH (07:41)
[2019-11-01 11:06] LABS: Glucose,Whole Blood 154 mg/dL (75-99)
[2019-11-01] MEDS: THIAMINE 100 MG TAB PO SCH (11:40)
[2019-11-01] MEDS: FOLIC ACID 1 MG TAB PO SCH (11:40)
--- NOTE | 2019-11-01 12:56 | PN ---
PROGRESS NOTE DATE OF SERVICE: 11/01/2028. REASON FOR FOLLOWUP: E coli urinary tract infection. INTERVAL HISTORY: The patient is currently afebrile. Patient is a pleasantly confused, but not agitated. Denies any chest pain, shortness of breath or cough. No nausea, no vomiting. No abdominal pain, no diarrhea. PHYSICAL EXAMINATION: Blood pressure 119/61 with a pulse of 62, temperature 97.9, she is 97% on room air. General description is an elderly female, up in the chair in no distress. RESPIRATORY SYSTEM: Unlabored breathing, clear to auscultation anteriorly. HEART: S1, S2. Regular rate and rhythm. ABDOMEN: Soft, no tenderness. LABS: No new labs have been obtained today. DIAGNOSTIC IMPRESSION AND PLAN: Patient with Escherichia coli urinary tract infection. Patient clinically responding to the oral Levaquin for another 3 to 5 days to finish a course of therapy. Continue supportive care. MMODL / IJN: [id number] /
--- NOTE | 2019-11-02 08:43 | P.DS ---
Providers Date of admission: 10/31/19 13:03 Expected date of discharge: 11/01/19 Attending physician: Marcin Mixon Consults: 10/28/19 20:49 Consult Physician Routine Consulting Provider: Mansoor Dawson Consult Reason/Comments: CRE Do you want consulting provider notified?: Yes 10/29/19 01:20 Consult Physician Routine Consulting Provider: Eulalia Dawn Consult Reason/Comments: Generalized weakness, fall, possible loss of consciousness Do you want consulting provider notified?: Yes, Notify in am Primary care physician: [facility] Course: Final diagnosis Change in mental status, gait dysfunction, possible acute transient ischemic attack and possible acute metabolic encephalopathy secondary to sepsis Acute urinary tract infection with E. coli present on admission with possible sepsis History of multiple transient ischemic attacks previously Encephalomalacia. 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 coli in the past history of meningioma left-sided the brain History of lumpectomy History of CRE and MRSA History of hysterectomy Anxiety, bipolar depression Remote history of nicotine dependence Discharge disposition Patient is being discharged in a stable condition with guarded prognosis to home and will have continued home care. She will follow-up with Dr. Hunt in the outpatient setting upon discharge. Patient will continue on oral antibiotics in the form of Levaquin 500 mg daily for the next 7 days. Total time taken is 35 minutes. History of present illness This is an 74-year-old female who was recently admitted with change in mental status and possible acute TIA, also had acute urinary tract infection with the culture showing E. coli with some resistance and was being closely monitored. Patient was being evaluated by PT/OT for possible ECF although family like to continue with home care upon discharge. Patient continued to be confused. Patient was evaluated by neurology and will continue on aspirin 81 mg along with seizure medications of Keppra and Vimpat and recommending possible long-term care in the near future. Social work was following working on resources for family per day programs for the patient. Currently no report chest pain or palpitations. Patient denies any shortness of breath. Patient is afebrile. No reports of nausea or vomiting and patient is tolerating diet. Currently patient's condition is stable and is ready for discharge today. Guarded prognosis. On exam vital signs are stable. Temp is 97.9F, pulse is 64, respirations are 17, blood pressure is 171/71, oxygen saturation is 98% on room air. Cardio S1, S2 are muffled. Respiratory system shows diminished breath sounds at the bases with no wheezing or rhonchi noted. Abdomen is soft and nontender. Nervous system shows no focal deficits. Please refer to medication reconciliation sheet for a list of medications. Patient Condition at Discharge: Stable Plan - Discharge Summary Discharge Rx Participant: No New Discharge Prescriptions: New Folic Acid 1 mg PO DAILY@1200 30 Days #30 tab Levofloxacin [Levaquin] 500 mg PO DAILY 7 Days #7 tab Thiamine [Vitamin B-1] 100 mg PO DAILY@1200 30 Days #30 tab Continue Anastrozole [Arimidex] 1 mg PO DAILY Melatonin 3 mg PO HS Multivitamins, Thera [Multivitamin (formulary)] 1 tab PO DAILY Cyanocobalamin (Vitamin B-12) [Vitamin B-12] 1,000 mcg PO DAILY Cholecalciferol [Vitamin D3 (25 Mcg = 1000 Iu)] 1,000 unit PO DAILY busPIRone HCl [Buspar] 10 mg PO HS metFORMIN HCL [Glucophage] 500 mg PO BID busPIRone HCl [Buspar] 5 mg PO DAILY Atorvastatin Calcium [Lipitor] 10 mg PO HS risperiDONE [RisperDAL] 1 mg PO HS Omeprazole 20 mg PO DAILY Cranberry Fruit Concentrate [Azo Cranberry] 250 mg PO DAILY Carvedilol 25 mg PO BID Co-Q10 10 mg PO DAILY Acetaminophen [Tylenol] 325 mg PO Q4H PRN PRN Reason: Pain Lacosamide [Vimpat] 150 mg PO BID levETIRAcetam [Keppra] 500 mg PO BID Aspirin EC [Ecotrin Low Dose] 81 mg PO DAILY Tolterodine Tartrate [Detrol LA] 4 mg PO HS Empagliflozin [Jardiance] 10 mg PO DAILY Discharge Medication List Anastrozole [Arimidex] 1 mg PO DAILY 12/22/16 [History] Melatonin 3 mg PO HS 10/13/17 [History] Cholecalciferol [Vitamin D3 (25 Mcg = 1000 Iu)] 1,000 unit PO DAILY 06/05/18 [History] Cyanocobalamin (Vitamin B-12) [Vitamin B-12] 1,000 mcg PO DAILY 06/05/18 [History] Multivitamins, Thera [Multivitamin (formulary)] 1 tab PO DAILY 06/05/18 [History] busPIRone HCl [Buspar] 10 mg PO HS 06/05/18 [History] metFORMIN HCL [Glucophage] 500 mg PO BID 06/06/18 [History] busPIRone HCl [Buspar] 5 mg PO DAILY 08/13/18 [History] Atorvastatin Calcium [Lipitor] 10 mg PO HS 09/05/18 [History] risperiDONE [RisperDAL] 1 mg PO HS 09/05/18 [History] Omeprazole 20 mg PO DAILY 10/15/18 [History] Carvedilol 25 mg PO BID 12/26/18 [History] Cranberry Fruit Concentrate [Azo Cranberry] 250 mg PO DAILY 12/26/18 [History] Co-Q10 10 mg PO DAILY 07/09/19 [History] Acetaminophen [Tylenol] 325 mg PO Q4H PRN 10/24/19 [History] Lacosamide [Vimpat] 150 mg PO BID 10/24/19 [History] levETIRAcetam [Keppra] 500 mg PO BID 10/24/19 [History] Aspirin EC [Ecotrin Low Dose] 81 mg PO DAILY 10/28/19 [History] Empagliflozin [Jardiance] 10 mg PO DAILY 10/28/19 [History] Tolterodine Tartrate [Detrol LA] 4 mg PO HS 10/28/19 [History] Folic Acid 1 mg PO DAILY@1200 30 Days #30 tab 11/01/19 [Rx] Levofloxacin [Levaquin] 500 mg PO DAILY 7 Days #7 tab 11/01/19 [Rx] Thiamine [Vitamin B-1] 100 mg PO DAILY@1200 30 Days #30 tab 11/01/19 [Rx] Follow up Appointment(s)/Referral(s): Mani Hunt DO [Primary Care Provider] - 11/09/19 1:20 pm ( ) [facility] - 1 Week Patient Instructions/Handouts: Thiamine (By mouth), Folic Acid (By mouth), Levofloxacin (By mouth), Urinary Tract Infection in Women (DC), Nonepileptic Seizures (DC), Weakness (DC), Encephalopathy (DC) Activity/Diet/Wound Care/Special Instructions: Activity Limited until follow-up Follow-up with primary care provider upon discharge Continue antibiotics until finished Continue current diet Discharge Disposition: HOME SELF-CARE
== END 2019-11-01 13:35 | disposition home health service (06) ==
LOC: EC 14:12 → 5NMEDONC 17:12 → INTOOBSV 10-31 13:03 → OBSVTOIN 10-31 13:03 → UNDODISIN 11-01 13:35
PROVIDERS: ADMIT Hospitalist; ATTEND Hospitalist
DX: N39.0 Urinary tract infection, site not specified (principal); F31.30 Bipolar disorder, current episode depressed, mild or moderate severity, unspecified; E78.5 Hyperlipidemia, unspecified; E11.9 Type 2 diabetes mellitus without complications; F41.9 Anxiety disorder, unspecified; G40.909 Epilepsy, unspecified, not intractable, without status epilepticus; K21.9 Gastro-esophageal reflux disease without esophagitis; I77.819 Aortic ectasia, unspecified site; I44.7 Left bundle-branch block, unspecified; I10 Essential (primary) hypertension; F01.50 Vascular dementia, unspecified severity, without behavioral disturbance, psychotic disturbance, mood disturbance, and anxiety; Z96.641 Presence of right artificial hip joint; R26.9 Unspecified abnormalities of gait and mobility; Z90.710 Acquired absence of both cervix and uterus; Z87.891 Personal history of nicotine dependence; Z87.440 Personal history of urinary (tract) infections; Z86.73 Personal history of transient ischemic attack (TIA), and cerebral infarction without residual deficits; Z86.14 Personal history of Methicillin resistant Staphylococcus aureus infection; Z86.011 Personal history of benign neoplasm of the brain; Z85.3 Personal history of malignant neoplasm of breast; Z82.49 Family history of ischemic heart disease and other diseases of the circulatory system; Z82.0 Family history of epilepsy and other diseases of the nervous system; Z79.899 Other long term (current) drug therapy; Z79.84 Long term (current) use of oral hypoglycemic drugs; Z79.82 Long term (current) use of aspirin; Z79.811 Long term (current) use of aromatase inhibitors; Z90.49 Acquired absence of other specified parts of digestive tract; Z88.2 Allergy status to sulfonamides; Z88.8 Allergy status to other drugs, medicaments and biological substances; Z91.012 Allergy to eggs; Z16.24 Resistance to multiple antibiotics; G93.89 Other specified disorders of brain; N32.81 Overactive bladder; W19.XXXA Unspecified fall, initial encounter; B96.20 Unspecified Escherichia coli [E. coli] as the cause of diseases classified elsewhere
CPT/HCPCS: 96361 ×3; 96365; 96366; 96372 ×5; 96375; 99285; 36415; 94760; 93005; 97162; 97535; 97166; 80053; 80048 ×3; 84443; 83605; 83735; 84484; 85025 ×4; 81001; 87040; 87086; 87077; 87186; 71046; G0378 ×5; J1644 ×5; J2765; J1956 ×2; S0170 ×4; 96374

== ENCOUNTER 2020-01-17 15:57 | Emergency (ER) | payer MEDICARE ==
[2020-01-17 16:02] VITALS: TEMP 98.1
[2020-01-17 16:24] LABS: Glucose,Whole Blood 159 mg/dL (75-99)
--- NOTE | 2020-01-17 16:42 | ED ---
Weakness HPI - General Chief complaint: Weakness Stated complaint: right arm & leg weakness/off balance Time Seen by Provider: 01/17/20 16:22 Source: patient, family Mode of arrival: wheelchair Limitations: physical limitation - History of Present Illness Initial comments: The patient is a 74-year-old female with past medical history of seizures with Brennen's paralysis, meningioma with gamma knife removal, brain cancer and TIAs who presents to the emergency department with reported right upper and right lower extremity weakness. is at bedside and provides majority of the history as the patient does have dementia. He states that over the past 2 weeks the patient has had waxing and waning confusion as well as weakness of the right upper extremity. The cannot state where the patient has any baseline weakness however he had noted that the patient was having difficulty using it. The patient admits to difficulty with coordination. She denies any headaches or visual changes. No speech difficulties. She was oriented to person and place. Cannot identify the month. She denies any neck pain or stiffness. No fevers or chills. Denies chest pain or shortness of breath. No difficulties with ambulation. She sees Dr. Gamboa in the outpatient setting. Next appointment is next week. There are no other alleviating, precipitating or modifying factors - Related Data Home Medications Medication Instructions Recorded Confirmed Anastrozole [Arimidex] 1 mg PO DAILY 12/22/16 10/28/19 Melatonin 3 mg PO HS 10/13/17 10/28/19 Cholecalciferol [Vitamin D3 (25 1,000 unit PO DAILY 06/05/18 10/28/19 Mcg = 1000 Iu)] Cyanocobalamin (Vitamin B-12) 1,000 mcg PO DAILY 06/05/18 10/28/19 [Vitamin B-12] Multivitamins, Thera [Multivitamin 1 tab PO DAILY 06/05/18 10/28/19 (formulary)] busPIRone HCl [Buspar] 10 mg PO HS 06/05/18 10/28/19 metFORMIN HCL [Glucophage] 500 mg PO BID 06/06/18 10/28/19 busPIRone HCl [Buspar] 5 mg PO DAILY 08/13/18 10/28/19 Atorvastatin Calcium [Lipitor] 10 mg PO HS 09/05/18 10/28/19 risperiDONE [RisperDAL] 1 mg PO HS 09/05/18 10/28/19 Omeprazole 20 mg PO DAILY 10/15/18 10/28/19 Carvedilol 25 mg PO BID 12/26/18 10/28/19 Cranberry Fruit Concentrate [Azo 250 mg PO DAILY 12/26/18 10/28/19 Cranberry] Co-Q10 10 mg PO DAILY 07/09/19 10/28/19 Acetaminophen [Tylenol] 325 mg PO Q4H PRN 10/24/19 10/28/19 Lacosamide [Vimpat] 150 mg PO BID 10/24/19 10/28/19 levETIRAcetam [Keppra] 500 mg PO BID 10/24/19 10/28/19 Aspirin EC [Ecotrin Low Dose] 81 mg PO DAILY 10/28/19 10/28/19 Empagliflozin [Jardiance] 10 mg PO DAILY 10/28/19 10/28/19 Tolterodine Tartrate [Detrol LA] 4 mg PO HS 10/28/19 10/28/19 Previous Rx's Medication Instructions Recorded Folic Acid 1 mg PO DAILY@1200 30 Days #30 tab 11/01/19 Levofloxacin [Levaquin] 500 mg PO DAILY 7 Days #7 tab 11/01/19 Thiamine [Vitamin B-1] 100 mg PO DAILY@1200 30 Days #30 11/01/19 tab Nitrofurantoin Monohyd/M-Cryst 100 mg PO Q12HR #14 cap 01/17/20 [Macrobid] Allergies Allergy/AdvReac Type Severity Reaction Status Date / Time Sulfa (Sulfonamide Allergy Unknown Unknown Verified 01/17/20 16:02 Antibiotics) solifenacin [From [facility]] AdvReac Confusion/s Verified 01/17/20 16:02 haking Review of Systems ROS Statement: Those systems with pertinent positive or pertinent negative responses have been documented in the HPI. ROS Other: All systems not noted in ROS Statement are negative. 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 History of Any Multi-Drug Resistant Organisms: CRE, MRSA Date of last positivie culture/infection: 08/13/18 MRSA & MDRO CRE MDRO Source:: Urine-MRSA and MDRO CRE Past Surgical History: Hysterectomy Additional Past Surgical History / Comment(s): Total hysterectomy, right hip arthroplasty, laser surgery of the right eye of her bleeding, bladder suspension, right elbow metal plate , gamma knife procedure for meningoma lt side of brain 03-11-17 Past Anesthesia/Blood Transfusion Reactions: No Reported Reaction Past Psychological History: Anxiety, Bipolar, Depression Smoking Status: Former smoker Past Alcohol Use History: None Reported Past Drug Use History: None Reported - Past Family History Father Family Medical History: No Reported History Additional Family Medical History / Comment(s): Father is alive in his 80s and is a smoker. Patient does not know his medical history. Mother Family Medical History: No Reported History Additional Family Medical History / Comment(s): Mother at age 79 from A lzheimer's dementia. Sister(s) Family Medical History: Congestive Heart Failure (CHF) Additional Family Medical History / Comment(s): She has one sister that is from heart failure. Patient does not have any brothers. Patient has 2 daught ers that are 45 and 42 years of age with no major medical problems. General Exam Limitations: physical limitation General appearance: alert, in no apparent distress Head exam: Present: atraumatic, normocephalic, normal inspection Eye exam: Present: normal appearance, PERRL, EOMI. Absent: scleral icterus, conjunctival injection, periorbital swelling ENT exam: Present: normal exam, mucous membranes moist, other (no facial droop) Neck exam: Present: normal inspection. Absent: tenderness, meningismus, lymphadenopathy Respiratory exam: Present: normal lung sounds bilaterally. Absent: respiratory distress, wheezes, rales, rhonchi, stridor Cardiovascular Exam: Present: regular rate, normal rhythm, normal heart sounds. Absent: systolic murmur, diastolic murmur, rubs, gallop, clicks Extremities exam: Present: other (patient has 4/5 muscle strength of the right upper extremity upon presentation. Also has ataxia with difficulty of finger to nose on the right. 5/5 muscle strength of the bilateral lower extremities without ataxia. ) Neurological exam: Present: alert, other (oriented x 2. Has difficulty following commands and must be asked several times before appropriately following commands. ) Psychiatric exam: Present: normal affect, normal mood Course Vital Signs 01/17/20 01/17/20 01/17/20 15:58 18:16 18:30 Temperature 98.1 F Pulse Rate 64 60 67 Respiratory 20 12 18 Rate Blood Pressure 125/83 155/83 O2 Sat by Pulse 98 98 Oximetry 01/17/20 01/17/20 19:00 20:14 Temperature 98.1 F Pulse Rate 61 64 Respiratory 13 18 Rate Blood Pressure 144/73 156/84 O2 Sat by Pulse 97 98 Oximetry EKG Findings - EKG Comments: EKG Findings:: EKG demonstrates normal sinus rhythm with a ventricular rate of 60. ND interval 162. QRS 82. QTC of 427. No acute ST segment elevations or depressions concerning for ischemic changes Medical Decision Making - Medical Decision Making Upon arrival the patient is placed into room 2. A thorough history and physical exam is performed. The patient does have weakness graded 4 out of 5 of the right upper extremity. She also has difficulty with coordination in the right upper extremity. Because of the patient's previous history did recommend a CT of the brain as well as laboratory studies. Peripheral IV was established. Laboratory studies remarkable for glucose of 158. Urinalysis shows 4+ glucose, trace blood, positive nitrates, large leukocyte esterase, greater than 182 white blood cells, few white blood cell clumps. Previous urinalysis and urine culture is reviewed and the patient was sensitive to Macrobid. I did provide her with an oral dose. CT of the patient's brain demonstrates age-related atrophic and chronic small vessel ischemic change without acute intracanal process. This results the patient. I did recommend hospital admission because of the patient's worsening right upper extremity weakness. 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 The patient refused admission stating that she wanted to go home. was at bedside and comfortable with her decision as he does state that her weakness has been transient for "a very long time". I did recommend treatment of her acute urinary tract infection. I recommend that she follow up with her primary care doctor within 2-4 days. Return to the emergency department for any worsening symptoms. She does have an appointment with Dr. Gamboa on Friday for which I did stress that she attend. The patient agreed to this and she was discharged home ambulatory in stable condition - Lab Data Result diagrams: 01/17/20 17:30 01/17/20 17:30 Lab Results 01/17/20 01/17/20 01/17/20 Range/Units 16:12 17:30 17:30 WBC 7.3 (3.8-10.6) k/uL RBC 4.18 (3.80-5.40) m/uL Hgb 12.8 (11.4-16.0) gm/dL Hct 38.0 (34.0-46.0) % MCV 90.9 (80.0-100.0) fL MCH 30.6 (25.0-35.0) pg MCHC 33.7 (31.0-37.0) g/dL RDW 12.9 (11.5-15.5) % Plt Count 173 (150-450) k/uL Neutrophils % 68 % Lymphocytes % 17 % Monocytes % 11 % Eosinophils % 1 % Basophils % 0 % Neutrophils # 5.0 (1.3-7.7) k/uL Lymphocytes # 1.2 (1.0-4.8) k/uL Monocytes # 0.8 (0-1.0) k/uL Eosinophils # 0.1 (0-0.7) k/uL Basophils # 0.0 (0-0.2) k/uL PT 9.8 (9.0-12.0) sec INR 0.9 (<1.2) APTT 22.0 (22.0-30.0) sec Sodium (137-145) mmol/L Potassium (3.5-5.1) mmol/L Chloride (98-107) mmol/L Carbon Dioxide (22-30) mmol/L Anion Gap mmol/L BUN (7-17) mg/dL Creatinine (0.52-1.04) mg/dL Est GFR (CKD-EPI)AfAm (>60 ml/min/1.73 sqM) Est GFR (CKD-EPI)NonAf (>60 ml/min/1.73 sqM) Glucose (74-99) mg/dL POC Glucose (mg/dL) 159 H (75-99) mg/dL POC Glu Warehouse Logistics Coordinator ID [place], [place] Plasma Lactic Acid Rony (0.7-2.0) mmol/L Calcium (8.4-10.2) mg/dL Total Bilirubin (0.2-1.3) mg/dL AST (14-36) U/L ALT (4-34) U/L Alkaline Phosphatase (38-126) U/L Creatine Kinase (30-135) U/L Troponin I (0.000-0.034) ng/mL Total Protein (6.3-8.2) g/dL Albumin (3.5-5.0) g/dL TSH (0.465-4.680) mIU/L Urine Color Urine Appearance (Clear) Urine pH (5.0-8.0) Ur Specific [place] (1.001-1.035) Urine Protein (Negative) Urine Glucose (UA) (Negative) Urine Ketones (Negative) Urine Blood (Negative) Urine Nitrite (Negative) Urine Bilirubin (Negative) Urine Urobilinogen (<2.0) mg/dL Ur Leukocyte Esterase (Negative) Urine RBC (0-5) /hpf Urine WBC (0-5) /hpf Urine WBC Clumps (None) /hpf Ur Squamous Epith Cells (0-4) /hpf Urine Bacteria (None) /hpf Urine Mucus (None) /hpf Coronavirus (PCR) (Not Detectd) 01/17/20 01/17/20 01/17/20 Range/Units 17:30 17:30 17:30 WBC (3.8-10.6) k/uL RBC (3.80-5.40) m/uL Hgb (11.4-16.0) gm/dL Hct (34.0-46.0) % MCV (80.0-100.0) fL MCH (25.0-35.0) pg MCHC (31.0-37.0) g/dL RDW (11.5-15.5) % Plt Count (150-450) k/uL Neutrophils % % Lymphocytes % % Monocytes % % Eosinophils % % Basophils % % Neutrophils # (1.3-7.7) k/uL Lymphocytes # (1.0-4.8) k/uL Monocytes # (0-1.0) k/uL Eosinophils # (0-0.7) k/uL Basophils # (0-0.2) k/uL PT (9.0-12.0) sec INR (<1.2) APTT (22.0-30.0) sec Sodium 138 (137-145) mmol/L Potassium 4.4 (3.5-5.1) mmol/L Chloride 102 (98-107) mmol/L Carbon Dioxide 27 (22-30) mmol/L Anion Gap 9 mmol/L BUN 23 H (7-17) mg/dL Creatinine 0.77 (0.52-1.04) mg/dL Est GFR (CKD-EPI)AfAm 89 (>60 ml/min/1.73 sqM) Est GFR (CKD-EPI)NonAf 77 (>60 ml/min/1.73 sqM) Glucose 158 H (74-99) mg/dL POC Glucose (mg/dL) (75-99) mg/dL POC Glu Warehouse Logistics Coordinator ID Plasma Lactic Acid Rony 1.2 (0.7-2.0) mmol/L Calcium 9.8 (8.4-10.2) mg/dL Total Bilirubin 0.3 (0.2-1.3) mg/dL AST 19 (14-36) U/L ALT 10 (4-34) U/L Alkaline Phosphatase 92 (38-126) U/L Creatine Kinase 67 (30-135) U/L Troponin I (0.000-0.034) ng/mL Total Protein 7.2 (6.3-8.2) g/dL Albumin 4.2 (3.5-5.0) g/dL TSH 0.858 (0.465-4.680) mIU/L Urine Color Light Yellow Urine Appearance Cloudy H (Clear) Urine pH 5.0 (5.0-8.0) Ur Specific [place] 1.011 (1.001-1.035) Urine Protein Negative (Negative) Urine Glucose (UA) 4+ H (Negative) Urine Ketones Negative (Negative) Urine Blood Trace H (Negative) Urine Nitrite Positive H (Negative) Urine Bilirubin Negative (Negative) Urine Urobilinogen <2.0 (<2.0) mg/dL Ur Leukocyte Esterase Large H (Negative) Urine RBC 2 (0-5) /hpf Urine WBC >182 H (0-5) /hpf Urine WBC Clumps Few H (None) /hpf Ur Squamous Epith Cells 1 (0-4) /hpf Urine Bacteria Many H (None) /hpf Urine Mucus Rare H (None) /hpf Coronavirus (PCR) (Not Detectd) 01/17/20 01/17/20 Range/Units 17:30 18:15 WBC (3.8-10.6) k/uL RBC (3.80-5.40) m/uL Hgb (11.4-16.0) gm/dL Hct (34.0-46.0) % MCV (80.0-100.0) fL MCH (25.0-35.0) pg MCHC (31.0-37.0) g/dL RDW (11.5-15.5) % Plt Count (150-450) k/uL Neutrophils % % Lymphocytes % % Monocytes % % Eosinophils % % Basophils % % Neutrophils # (1.3-7.7) k/uL Lymphocytes # (1.0-4.8) k/uL Monocytes # (0-1.0) k/uL Eosinophils # (0-0.7) k/uL Basophils # (0-0.2) k/uL PT (9.0-12.0) sec INR (<1.2) APTT (22.0-30.0) sec Sodium (137-145) mmol/L Potassium (3.5-5.1) mmol/L Chloride (98-107) mmol/L Carbon Dioxide (22-30) mmol/L Anion Gap mmol/L BUN (7-17) mg/dL Creatinine (0.52-1.04) mg/dL Est GFR (CKD-EPI)AfAm (>60 ml/min/1.73 sqM) Est GFR (CKD-EPI)NonAf (>60 ml/min/1.73 sqM) Glucose (74-99) mg/dL POC Glucose (mg/dL) (75-99) mg/dL POC Glu Warehouse Logistics Coordinator ID Plasma Lactic Acid Rony (0.7-2.0) mmol/L Calcium (8.4-10.2) mg/dL Total Bilirubin (0.2-1.3) mg/dL AST (14-36) U/L ALT (4-34) U/L Alkaline Phosphatase (38-126) U/L Creatine Kinase (30-135) U/L Troponin I <0.012 (0.000-0.034) ng/mL Total Protein (6.3-8.2) g/dL Albumin (3.5-5.0) g/dL TSH (0.465-4.680) mIU/L Urine Color Urine Appearance (Clear) Urine pH (5.0-8.0) Ur Specific [place] (1.001-1.035) Urine Protein (Negative) Urine Glucose (UA) (Negative) Urine Ketones (Negative) Urine Blood (Negative) Urine Nitrite (Negative) Urine Bilirubin (Negative) Urine Urobilinogen (<2.0) mg/dL Ur Leukocyte Esterase (Negative) Urine RBC (0-5) /hpf Urine WBC (0-5) /hpf Urine WBC Clumps (None) /hpf Ur Squamous Epith Cells (0-4) /hpf Urine Bacteria (None) /hpf Urine Mucus (None) /hpf Coronavirus (PCR) Not Detected (Not Detectd) Disposition Clinical Impression: Right sided weakness, Acute UTI, Confusion Disposition: HOME SELF-CARE Condition: Stable Instructions (If sedation given, give patient instructions): Urinary Tract Infection in Women (ED) Additional Instructions: Please follow-up with your neurologist on Friday. Return to the emergency room for any new or worsening symptoms Prescriptions: Nitrofurantoin Monohyd/M-Cryst [Macrobid] 100 mg PO Q12HR #14 cap Is patient prescribed a controlled substance at d/c from ED?: No Referrals: Mani Hunt DO [Primary Care Provider] - 1-2 days Time of Disposition: 20:04
[2020-01-17 17:44] LABS: Basophils % (A) 0 %; Eosinophils # (A) 0.1 k/uL (0-0.7); Eosinophils % (A) 1 %; HGB 12.8 gm/dL (11.4-16.0); Lymphocytes # (A) 1.2 k/uL (1.0-4.8); Lymphocytes % (A) 17 %; MCH 30.6 pg (25.0-35.0); MCHC 33.7 g/dL (31.0-37.0); MCV 90.9 fL (80.0-100.0); Mean Platelet Volume 7.7; Monocytes # (A) 0.8 k/uL (0-1.0); Monocytes % (A) 11 %; Neutrophils % (A) 68 %; Platelet Count 173 k/uL (150-450); RBC 4.18 m/uL (3.80-5.40); RDW 12.9 % (11.5-15.5); WBC 7.3 k/uL (3.8-10.6)
[2020-01-17 17:45] LABS: Appearance,Urine Cloudy (Clear); Bacteria,Urine Many /hpf; Bilirubin,Urine Negative (Negative); Blood,Urine Trace (Negative); Color,Urine Light Yellow; Glucose,Urine (UA) 4+ (Negative); Ketones,Urine Negative (Negative); Leukocyte Esterase,Urine Large (Negative); Mucus,Urine Rare /hpf; Nitrite,Urine Positive (Negative); Protein,Urine Negative (Negative); RBC,Urine 2 /hpf (0-5); Specific Gravity,Urine 1.011 (1.001-1.035); Squamous Epithelial Cell,Urine 1 /hpf (0-4); Urobilinogen,Urine <2.0 mg/dL (<2.0); WBC,Urine >182 /hpf (0-5)
[2020-01-17 17:52] LABS: Albumin 4.2 g/dL (3.5-5.0); Calcium 9.8 mg/dL (8.4-10.2); Potassium 4.4 mmol/L (3.5-5.1); Total Bilirubin 0.3 mg/dL (0.2-1.3); Total Protein 7.2 g/dL (6.3-8.2)
[2020-01-17 17:56] LABS: INR 0.9 (<1.2); Prothrombin Time 9.8 sec (9.0-12.0)
--- NOTE | 2020-01-17 18:23 | CT ---
EXAMINATION TYPE: CT brain wo con DATE OF EXAM: 01/17/2020 COMPARISON: November 03, 2019 HISTORY: weakness, confusion CT DLP: 1123.[address] of the brain was performed. The ventricles, basal cisterns and sulci overlying the cerebral convexities demonstrate mild enlargem ent. There is no evidence for intracranial hemorrhage or sulcal effacement. Remote insult high left parie selina lobe with peripheral calcification unchanged. There is decreased attenuation about the periventricular white matter and deep white matter of both c erebral hemispheres, compatible with chronic small vessel ischemia. Differential diagnosis does inclu de demyelination. No mass effects are seen.No midline shift. Osseous calvarium is intact. If symptoms persist consider MRI. IMPRESSION: 1. Age related atrophic and chronic small vessel ischemic change without acute intracranial process s een at this time.
[2020-01-17] MEDS ORDERED: PIPERACILLIN-TAZOBACTAM 3.375 GM in SODIUM CHLORIDE 0.9% 100 ML IVPB STA (19:46)
[2020-01-17] MEDS ORDERED: NITROFURANTOIN MONOHYD/M-CRYST 100 MG CAP PO STA (20:02)
[2020-01-17 20:15] VITALS: BP 156/84; PULSE 64; RESP 18
== END 2020-01-17 20:15 | disposition home or self-care (01) ==
LOC: EC 15:57
DX: Z03.818 Encounter for observation for suspected exposure to other biological agents ruled out (principal); N39.0 Urinary tract infection, site not specified; G31.1 Senile degeneration of brain, not elsewhere classified; F02.80 Dementia in other diseases classified elsewhere, unspecified severity, without behavioral disturbance, psychotic disturbance, mood disturbance, and anxiety; I67.82 Cerebral ischemia; G83.21 Monoplegia of upper limb affecting right dominant side; G40.909 Epilepsy, unspecified, not intractable, without status epilepticus; G83.84 Todd's paralysis (postepileptic); E11.9 Type 2 diabetes mellitus without complications; K21.9 Gastro-esophageal reflux disease without esophagitis; E78.5 Hyperlipidemia, unspecified; F41.9 Anxiety disorder, unspecified; F31.9 Bipolar disorder, unspecified; I10 Essential (primary) hypertension; Z87.891 Personal history of nicotine dependence; Z88.2 Allergy status to sulfonamides; Z88.1 Allergy status to other antibiotic agents; Z86.011 Personal history of benign neoplasm of the brain; Z85.3 Personal history of malignant neoplasm of breast; Z87.820 Personal history of traumatic brain injury; Z98.890 Other specified postprocedural states; Z79.84 Long term (current) use of oral hypoglycemic drugs; Z79.899 Other long term (current) drug therapy; Z79.82 Long term (current) use of aspirin; Z86.14 Personal history of Methicillin resistant Staphylococcus aureus infection
CPT/HCPCS: 36415; 70450; 80053; 81001; 82550; 83605; 84443; 84484; 85025; 85610; 85730; 87040; 87077; 87086; 87186; 87635; 93005; 99285

== ENCOUNTER 2020-01-25 11:34 | Inpatient (IN) | payer MEDICARE ==
[2020-01-25] MEDS ORDERED: SODIUM CHLORIDE 0.9% 500 ML 500 ML IV STA (11:36)
--- NOTE | 2020-01-25 11:39 | ED ---
General Adult HPI - General Stated complaint: poss CVA Source: EMS, RN notes reviewed, old records reviewed - History of Present Illness Initial comments: This is a 74-year-old female presents emergency department with past medical history significant for TIAs. Per EMS the states she's had multiple TIAs but no deficits she's normally alert and oriented 3. states that she was normal this morning and then about half hour prior to arrival he went to talk to her and assist her and she was not able to follow simple commands was not able to respond to him. Patient is unable to give any history at all. Patient is alert but not oriented at all and not following any simple commands. No other history is available at this time because has not yet arrived. - Related Data Home Medications Medication Instructions Recorded Confirmed Anastrozole [Arimidex] 1 mg PO DAILY 12/22/16 10/28/19 Melatonin 3 mg PO HS 10/13/17 10/28/19 Cholecalciferol [Vitamin D3 (25 1,000 unit PO DAILY 06/05/18 10/28/19 Mcg = 1000 Iu)] Cyanocobalamin (Vitamin B-12) 1,000 mcg PO DAILY 06/05/18 10/28/19 [Vitamin B-12] Multivitamins, Thera [Multivitamin 1 tab PO DAILY 06/05/18 10/28/19 (formulary)] busPIRone HCl [Buspar] 10 mg PO HS 06/05/18 10/28/19 metFORMIN HCL [Glucophage] 500 mg PO BID 06/06/18 10/28/19 busPIRone HCl [Buspar] 5 mg PO DAILY 08/13/18 10/28/19 Atorvastatin Calcium [Lipitor] 10 mg PO HS 09/05/18 10/28/19 risperiDONE [RisperDAL] 1 mg PO HS 09/05/18 10/28/19 Omeprazole 20 mg PO DAILY 10/15/18 10/28/19 Carvedilol 25 mg PO BID 12/26/18 10/28/19 Cranberry Fruit Concentrate [Azo 250 mg PO DAILY 12/26/18 10/28/19 Cranberry] Co-Q10 10 mg PO DAILY 07/09/19 10/28/19 Acetaminophen [Tylenol] 325 mg PO Q4H PRN 10/24/19 10/28/19 Lacosamide [Vimpat] 150 mg PO BID 10/24/19 10/28/19 levETIRAcetam [Keppra] 500 mg PO BID 10/24/19 10/28/19 Aspirin EC [Ecotrin Low Dose] 81 mg PO DAILY 10/28/19 10/28/19 Empagliflozin [Jardiance] 10 mg PO DAILY 10/28/19 10/28/19 Tolterodine Tartrate [Detrol LA] 4 mg PO HS 10/28/19 10/28/19 Previous Rx's Medication Instructions Recorded Folic Acid 1 mg PO DAILY@1200 30 Days #30 tab 11/01/19 Levofloxacin [Levaquin] 500 mg PO DAILY 7 Days #7 tab 11/01/19 Thiamine [Vitamin B-1] 100 mg PO DAILY@1200 30 Days #30 11/01/19 tab Nitrofurantoin Monohyd/M-Cryst 100 mg PO Q12HR #14 cap 01/17/20 [Macrobid] Allergies Allergy/AdvReac Type Severity Reaction Status Date / Time Sulfa (Sulfonamide Allergy Unknown Unknown Verified 01/17/20 16:02 Antibiotics) solifenacin [From Vesicare] AdvReac Confusion/s Verified 01/17/20 16:02 haking Review of Systems ROS Statement: Those systems with pertinent positive or pertinent negative responses have been documented in the HPI. ROS Other: All systems not noted in ROS Statement are negative. Past Medical History Past Medical History: Cancer, CVA/TIA, Diabetes Mellitus, GERD/Reflux, Hyperlipidemia, Hypertension, Seizure Disorder Additional Past Medical History / Comment(s): Intracranial bleed July 2015, overactive bladder, multi UTI- ecoli, Breast cancer,meningoma lt side of brain - had gamma knife procedure march 11 2017, RT bx,lumpectomy, lymph node removal." had seizure like symptoms on several ocassions but never got a clear answer if i t was". History of Any Multi-Drug Resistant Organisms: CRE, MRSA Date of last positivie culture/infection: 08/13/18 MRSA & MDRO CRE MDRO Source:: Urine-MRSA and MDRO CRE Past Surgical History: Hysterectomy Additional Past Surgical History / Comment(s): Total hysterectomy, right hip arthroplasty, laser surgery of the right eye of her bleeding, bladder suspension, right elbow metal plate , gamma knife procedure for meningoma lt side of brain 03-11-17 Past Anesthesia/Blood Transfusion Reactions: No Reported Reaction Past Psychological History: Anxiety, Bipolar, Depression Smoking Status: Former smoker Past Alcohol Use History: None Reported Past Drug Use History: None Reported - Past Family History Father Family Medical History: No Reported History Additional Family Medical History / Comment(s): Father is alive in his 80s and is a smoker. Patient does not know his medical history. Mother Family Medical History: No Reported History Additional Family Medical History / Comment(s): Mother at age 79 from Alzheimer's dementia. Sister(s) Family Medical History: Congestive Heart Failure (CHF) Additional Family Medical History / Comment(s): She has one sister that is from heart failure. Patient does not have any brothers. Patient has 2 d aughters that are 45 and 42 years of age with no major medical problems. General Exam - General Exam Comments Initial Comments: GENERAL: Patient is well-developed and well-nourished. Patient is nontoxic and well- hydrated and is in mild distress. Patient is very tearful but is not responding to us ENT: Neck is soft and supple. No significant lymphadenopathy is noted. Oropharynx is clear. Moist mucous membranes. Neck has full range of motion without eliciting any pain. EYES: The sclera were anicteric and conjunctiva were pink and moist. Extraocular movements were intact and pupils were equal round and reactive to light. Eyelids were unremarkable. PULMONARY: Unlabored respirations. Good breath sounds bilaterally. No audible rales rhonchi or wheezing was noted. CARDIOVASCULAR: There is a regular rate and rhythm without any murmurs gallops or rubs. ABDOMEN: Soft and nontender with normal bowel sounds. SKIN: Skin is clear with no lesions or rashes and otherwise unremarkable. NEUROLOGIC: Patient is alert and oriented 0. Cranial nerves II through XII are grossly intact. Unable to assess strength and sensory of the extremities because she does not follow any commands. Unable to assess because she is not speaking to us. MUSCULOSKELETAL: Normal extremities with adequate strength and full range of motion. No lower extremity swelling or edema. No calf tenderness. LYMPHATICS: No significant lymphadenopathy is noted PSYCHIATRIC: Normal psychiatric evaluation. Course Vital Signs 01/25/20 01/25/20 01/25/20 11:49 12:23 12:26 Temperature 98.3 F Pulse Rate 70 70 72 Respiratory 18 18 18 Rate Blood Pressure 176/108 176/108 153/67 O2 Sat by Pulse 100 100 100 Oximetry 01/25/20 13:26 Temperature Pulse Rate 70 Respiratory 18 Rate Blood Pressure 146/63 O2 Sat by Pulse 100 Oximetry Medical Decision Making - Medical Decision Making EKG shows normal sinus rhythm at 60 bpm ID interval 166 QRS is 88 QT interval 400 QTC is 425. I spoke with Dr. Mondragon and initially wanted TPA but then he got on the computer and spoke with the patient directly and she was much improved and at that point time he decided not give the patient any TPA. CT of the brain and CTA showed no acute abnormality I spoke with Dr. Vera and he agreed to admit the patient admitted the patient wrote admitting orders. - Lab Data Result diagrams: 01/25/20 12:00 01/25/20 12:00 Lab Results 01/25/20 01/25/20 01/25/20 Range/Units 11:42 12:00 12:00 WBC 7.6 (3.8-10.6) k/uL RBC 4.64 (3.80-5.40) m/uL Hgb 13.5 (11.4-16.0) gm/dL Hct 42.1 (34.0-46.0) % MCV 90.7 (80.0-100.0) fL MCH 29.2 (25.0-35.0) pg MCHC 32.2 (31.0-37.0) g/dL RDW 13.2 (11.5-15.5) % Plt Count 169 (150-450) k/uL Neutrophils % 73 % Lymphocytes % 15 % Monocytes % 8 % Eosinophils % 2 % Basophils % 0 % Neutrophils # 5.5 (1.3-7.7) k/uL Lymphocytes # 1.1 (1.0-4.8) k/uL Monocytes # 0.6 (0-1.0) k/uL Eosinophils # 0.1 (0-0.7) k/uL Basophils # 0.0 (0-0.2) k/uL PT 9.8 (9.0-12.0) sec INR 0.9 (<1.2) APTT 21.7 L (22.0-30.0) sec Sodium (137-145) mmol/L Potassium (3.5-5.1) mmol/L Chloride (98-107) mmol/L Carbon Dioxide (22-30) mmol/L Anion Gap mmol/L BUN (7-17) mg/dL Creatinine (0.52-1.04) mg/dL Est GFR (CKD-EPI)AfAm (>60 ml/min/1.73 sqM) Est GFR (CKD-EPI)NonAf (>60 ml/min/1.73 sqM) Glucose (74-99) mg/dL POC Glucose (mg/dL) 101 H (75-99) mg/dL POC Glu Battery Vent Plug Inserter ID Geovanna Su Calcium (8.4-10.2) mg/dL Total Bilirubin (0.2-1.3) mg/dL AST (14-36) U/L ALT (4-34) U/L Alkaline Phosphatase (38-126) U/L Troponin I (0.000-0.034) ng/mL Total Protein (6.3-8.2) g/dL Albumin (3.5-5.0) g/dL 01/25/20 01/25/20 Range/Units 12:00 12:00 WBC (3.8-10.6) k/uL RBC (3.80-5.40) m/uL Hgb (11.4-16.0) gm/dL Hct (34.0-46.0) % MCV (80.0-100.0) fL MCH (25.0-35.0) pg MCHC (31.0-37.0) g/dL RDW (11.5-15.5) % Plt Count (150-450) k/uL Neutrophils % % Lymphocytes % % Monocytes % % Eosinophils % % Basophils % % Neutrophils # (1.3-7.7) k/uL Lymphocytes # (1.0-4.8) k/uL Monocytes # (0-1.0) k/uL Eosinophils # (0-0.7) k/uL Basophils # (0-0.2) k/uL PT (9.0-12.0) sec INR (<1.2) APTT (22.0-30.0) sec Sodium 145 (137-145) mmol/L Potassium 4.4 (3.5-5.1) mmol/L Chloride 107 (98-107) mmol/L Carbon Dioxide 26 (22-30) mmol/L Anion Gap 12 mmol/L BUN 29 H (7-17) mg/dL Creatinine 0.67 (0.52-1.04) mg/dL Est GFR (CKD-EPI)AfAm >90 (>60 ml/min/1.73 sqM) Est GFR (CKD-EPI)NonAf 88 (>60 ml/min/1.73 sqM) Glucose 106 H (74-99) mg/dL POC Glucose (mg/dL) (75-99) mg/dL POC Glu Battery Vent Plug Inserter ID Calcium 9.8 (8.4-10.2) mg/dL Total Bilirubin 0.4 (0.2-1.3) mg/dL AST 18 (14-36) U/L ALT 12 (4-34) U/L Alkaline Phosphatase 97 (38-126) U/L Troponin I <0.012 (0.000-0.034) ng/mL Total Protein 7.5 (6.3-8.2) g/dL Albumin 4.2 (3.5-5.0) g/dL Critical Care Time Critical Care Time: Yes Total Critical Care Time: 35 Disposition Clinical Impression: Decreased responsiveness Disposition: ADMITTED IP TO THIS HOSP Referrals: Mani Hunt DO [Primary Care Provider] - 1-2 days Time of Disposition: 15:06
[2020-01-25] MEDS ORDERED: Alteplase PER PHARMACY Stroke 1 EACH MISC MISCELLANE PRN (11:49)
[2020-01-25 11:53] LABS: Glucose,Whole Blood 101 mg/dL (75-99)
[2020-01-25 12:12] LABS: Basophils % (A) 0 %; Eosinophils # (A) 0.1 k/uL (0-0.7); Eosinophils % (A) 2 %; HCT 42.1 % (34.0-46.0); HGB 13.5 gm/dL (11.4-16.0); Lymphocytes # (A) 1.1 k/uL (1.0-4.8); Lymphocytes % (A) 15 %; MCH 29.2 pg (25.0-35.0); MCHC 32.2 g/dL (31.0-37.0); MCV 90.7 fL (80.0-100.0); Mean Platelet Volume 7.2; Monocytes # (A) 0.6 k/uL (0-1.0); Monocytes % (A) 8 %; Neutrophils # (A) 5.5 k/uL (1.3-7.7); Neutrophils % (A) 73 %; Platelet Count 169 k/uL (150-450); RBC 4.64 m/uL (3.80-5.40); RDW 13.2 % (11.5-15.5); WBC 7.6 k/uL (3.8-10.6)
--- NOTE | 2020-01-25 12:14 | CT ---
EXAMINATION TYPE: CT brain wo con for TPA DATE OF EXAM: 01/25/2020 COMPARISON: 11/03/2019, 01/17/2020 INDICATION: Neuro deficit, acute stroke suspected DLP: 1097.8 mGycm, Automated exposure control for dose reduction was used. CONTRAST: None CT of the brain is performed utilizing 3 mm thick sections through the posterior fossa and 3 mm thick sections through the remaining calvarium. Study is performed within 24 hours of arrival to the hosp ital. No abnormal hyperdensity is present to suggest an acute intracranial hemorrhage. There is a stable-ap pearing hyperintensity within the cortex of the right posterior parietal lobe which may be calcificat ion. This area was present previously and appears stable. Adjacent white matter ischemic type changes may be present. Prior subcortical infarct is suspected, Vasogenic edema is not entirely excluded. No progression from October 2019 is evident however. Milder periventricular white matter hypodensity i s present No mass lesion is evident. No acute infarcts are evident. Ventricles and sulci are dominant for the patient age. Paranasal sinuses and mastoid air cells within the [id number] are clear. IMPRESSIONS: 1. Periventricular white matter ischemic type changes with age-related atrophy. 2. Suspected calcification adjacent to some focal subcortical chronic appearing white matter change. This may been old subcortical infarct less apparent than comparison.
[2020-01-25 12:20] LABS: ALT 12 U/L (4-34); AST 18 U/L (14-36); African American GFR (CKD) >90 (>60 ml/min/1.73 sqM); Albumin 4.2 g/dL (3.5-5.0); Alkaline Phosphatase 97 U/L (38-126); Anion Gap 12 mmol/L; Blood Urea Nitrogen 29 mg/dL (7-17); Calcium 9.8 mg/dL (8.4-10.2); Carbon Dioxide 26 mmol/L (22-30); Chloride 107 mmol/L (98-107); Glucose 106 mg/dL (74-99); Non-African American GFR(CKD) 88 (>60 ml/min/1.73 sqM); Potassium 4.4 mmol/L (3.5-5.1); Sodium 145 mmol/L (137-145); Total Bilirubin 0.4 mg/dL (0.2-1.3); Total Protein 7.5 g/dL (6.3-8.2)
[2020-01-25] MEDS ORDERED: ALTEPLASE 66 MG in EMPTY BAG 1 BAG IV STA (12:24)
[2020-01-25] MEDS ORDERED: ALTEPLASE BOLUS 7 MG in EMPTY SYRINGE 1 SYR IV STA (12:24)
[2020-01-25 12:26] LABS: INR 0.9 (<1.2); Prothrombin Time 9.8 sec (9.0-12.0)
[2020-01-25 12:28] LABS: Partial Thromboplastin Time 21.7 sec (22.0-30.0)
--- NOTE | 2020-01-25 12:34 | CT ---
EXAMINATION TYPE: CT angio head neck DATE OF EXAM: 01/25/2020 HISTORY: Acute stroke suspected with neurological symptoms COMPARISON: 01/25/2020 CT DLP: 1097.8 mGycm. Automated Exposure Control for Dose Reduction was Utilized. TECHNIQUE: CTA scan of the neck is performed , patient injected with 100 mL of Isovue 300, axial liz ges are obtained, coronal and sagittal reformatted images are reviewed. Three-D reconstructed images are created on an independent workstation and reviewed. FINDINGS: There is standard 3 vessel anatomy of the aortic arch with ectasia of the vasculature. Subc lavian arteries are patent as visualized. Visualized common carotid and vertebral arteries are patent proximally. There is mild atherosclerotic change involving the carotid bifurcation with no significant stenosis. Calcified thyroid nodule on the left measuring 1.2 cm. Hyperostosis of the calvarium noted. Nasal sep selina deviation noted. Intracranial atherosclerotic changes seen. Calcification in the high left pariet al lobe. Adjacent low-attenuation suggestive of remote ischemia stable from the exam of 2019. Vertebral basilar system patent. There is enhancement of the posterior cerebral arteries. Anterior and middle cerebral arteries appear to be patent. Moderate generalized degenerative change with low-attenuation the white matter suggestive of remote w henrique matter ischemia noted. There is a 1.5 cm nodule along the medial margin of the left parotid glan d which could be correlated with ultrasound on a short-term basis. Could be partial volume averaging with the vasculature. IMPRESSION: 1. Mild atherosclerotic change of the carotid bifurcations. 2. No sizable aneurysm or evidence of intracranial vascular occlusion. 3. Calcified left thyroid nodule questionable left parotid nodule which could be followed up with [facility] rt-term follow-up ultrasound.
[2020-01-25] MEDS ORDERED: SODIUM CHLORIDE 0.9% 50 ML MINI-BAG IV ONE (12:49)
[2020-01-25] MEDS ORDERED: ASPIRIN 325 MG TAB PO STA (15:06)
[2020-01-25 15:11] LABS: Appearance,Urine Cloudy (Clear); Bacteria,Urine Moderate /hpf; Bilirubin,Urine Negative (Negative); Blood,Urine Trace (Negative); Color,Urine Light Yellow; Glucose,Urine (UA) 4+ (Negative); Ketones,Urine 1+ (Negative); Leukocyte Esterase,Urine Large (Negative); Mucus,Urine Rare /hpf; Nitrite,Urine Negative (Negative); PH, Urine 6.5 (5.0-8.0); Protein,Urine Trace (Negative); RBC,Urine 17 /hpf (0-5); Squamous Epithelial Cell,Urine <1 /hpf (0-4); Urobilinogen,Urine <2.0 mg/dL (<2.0); WBC,Urine >182 /hpf (0-5)
--- NOTE | 2020-01-25 15:50 | XR ---
EXAMINATION TYPE: XR chest 2V DATE OF EXAM: 01/25/2020 COMPARISON: 10/28/2019 TECHNIQUE: PA and lateral views submitted. HISTORY: Altered mental status FINDINGS: The lungs are clear and there is no pneumothorax, pleural effusion, or focal pneumonia. Hypertrophi c and degenerative change of the spine. Chronic appearing right-sided rib deformities. Hyperinflation noted. Remote trauma left clavicle suspected. Ectasia the aorta. Subsegmental right basilar changes. IMPRESSION: 1. Right basilar atelectasis favored over pneumonia correlate clinically..
[2020-01-25 20:54] LABS: Glucose,Whole Blood 80 mg/dL (75-99)
[2020-01-25] MEDS: levETIRAcetam 500 MG TAB PO SCH (21:48)
[2020-01-25] MEDS: DIVALPROEX 500 MG TABLET.DR PO SCH (21:48)
--- NOTE | 2020-01-26 00:59 | P.HPIM ---
History of Present Illness H&P Date: 01/25/20 Chief Complaint: Altered mental status Patient is a 74-year-old female with a known history of hypertension, hyperlipidemia, seizure disorder, diabetes type 2, history of CVA/TIA, history of left side meningioma status post gamma knife procedure, history of breast cancer, history of intracranial bleeding 2014, hyperactive bladder/urinary incontinence and history of multiple UTIs in the past was brought to the hospital by EMS due to altered mental status and decreased responsiveness. Today morning patient could not finish sentences and very lethargic. According to patient's she was normal this morning and then after about half an hour prior to arrival he went to talk to her and assist her and she was not able to follow simple commands and was not able to respond to him. She normally is alert and oriented x3. Patient does have history of multiple TIAs. No recent history of fever or chills. No cough or sputum production. No nausea vomiting or diarrhea. History was taken from her at bedside. And also from EMS and medical records. CT head and CT angiogram of the head and neck showed no acute process. Chest x-ray showed right basilar atelectasis favored over pneumonia correlate clinically. No leukocytosis. EKG showed sinus rhythm. Urinalysis showed cloudy 1+ ketones 4+ glucose, nitrite negative, large leukocyte esterase, RBC 17 and WBC greater than 182 with squamous epithelial cells less than 1. Review of Systems Review of systems could not be obtained from the patient. 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 History of Any Multi-Drug Resistant Organisms: CRE, MRSA Date of last positivie culture/infection: 08/13/18 MRSA & MDRO CRE MDRO Source:: Urine-MRSA and MDRO CRE Past Surgical History: Hysterectomy Additional Past Surgical History / Comment(s): Total hysterectomy, right hip arthroplasty, laser surgery of the right eye of her bleeding, bladder suspension, right elbow metal plate , gamma knife procedure for meningoma lt side of brain 03-11-17 Past Anesthesia/Blood Transfusion Reactions: No Reported Reaction Past Psychological History: Anxiety, Bipolar, Depression Additional Psychological History / Comment(s): 03/19/2016- treated for psychosis, bipolar depression, paranoid symptoms and hearing voices. pt lives with her spouse in ranch style home that has 2 steps to enter. has a pet cat. no outside services recieved-daughter heips out when needed. no medical equipment except for cane. Smoking Status: Former smoker Past Alcohol Use History: None Reported Additional Past Alcohol Use History / Comment(s): Patient was a smoker for approx 6 years and quit in 1979. She denies any medical marijuana, marijuana, street drug or alcohol use. She uses a cane for ambulation since the intracranial bleed in July 2015. Past Drug Use History: None Reported - Past Family History Father Family Medical History: No Reported History Additional Family Medical History / Comment(s): Father is alive in his 80s and is a smoker. Patient does not know his medical history. Mother Family Medical History: No Reported History Additional Family Medical History / Comment(s): Mother at age 79 from Alzheimer's dementia. Sister(s) Family Medical History: Congestive Heart Failure (CHF) Additional Family Medical History / Comment(s): She has one sister that is from heart failure. Patient does not have any brothers. Patient has 2 daughters that are 45 and 42 years of age with no major medical problems. Medications and Allergies Home Medications Medication Instructions Recorded Confirmed Type Anastrozole [Arimidex] 1 mg PO DAILY 12/22/16 01/25/20 History Melatonin 3 mg PO HS 10/13/17 01/25/20 History Cholecalciferol [Vitamin D3 (25 1,000 unit PO DAILY@1200 06/05/18 01/25/20 History Mcg = 1000 Iu)] Cyanocobalamin (Vitamin B-12) 1,000 mcg PO DAILY 06/05/18 01/25/20 History [Vitamin B-12] Multivitamins, Thera [Multivitamin 1 tab PO DAILY 06/05/18 01/25/20 History (formulary)] busPIRone HCl [Buspar] 10 mg PO HS 06/05/18 01/25/20 History metFORMIN HCL [Glucophage] 500 mg PO BID 06/06/18 01/25/20 History busPIRone HCl [Buspar] 5 mg PO DAILY 08/13/18 01/25/20 History Atorvastatin Calcium [Lipitor] 10 mg PO HS 09/05/18 01/25/20 History risperiDONE [RisperDAL] 1 mg PO HS 09/05/18 01/25/20 History Carvedilol 25 mg PO BID 12/26/18 01/25/20 History Co-Q10 10 mg PO DAILY 07/09/19 01/25/20 History levETIRAcetam [Keppra] 500 mg PO BID 10/24/19 01/25/20 History Aspirin EC [Ecotrin Low Dose] 81 mg PO DAILY 10/28/19 01/25/20 History Empagliflozin [Jardiance] 10 mg PO DAILY 10/28/19 01/25/20 History Folic Acid 1 mg PO DAILY@1200 30 Days #30 tab 11/01/19 01/25/20 Rx Cranberry 4200mg 2 tab PO DAILY 01/25/20 01/25/20 History Divalproex [Depakote] 250 mg PO DAILY 01/25/20 01/25/20 History Divalproex [Depakote] 500 mg PO HS 01/25/20 01/25/20 History Omeprazole 20 mg PO DAILY 01/25/20 01/25/20 History Thiamine [Vitamin B-1] 100 mg PO DAILY 01/25/20 01/25/20 History Allergies Allergy/AdvReac Type Severity Reaction Status Date / Time Sulfa (Sulfonamide Allergy Unknown Unknown Verified 01/25/20 20:08 Antibiotics) ciprofloxacin [From Cipro] Allergy Unknown Verified 01/25/20 20:08 solifenacin [From Vesicare] AdvReac Confusion/s Verified 01/25/20 20:08 haking Physical Exam Vitals: Vital Signs Temp Pulse Resp BP Pulse Ox 01/25/20 17:57 73 18 138/77 100 01/25/20 17:44 73 18 138/77 100 01/25/20 16:00 71 18 100 01/25/20 15:00 71 18 161/77 100 01/25/20 14:00 71 18 152/74 100 01/25/20 13:26 70 18 146/63 100 01/25/20 12:26 72 18 153/67 100 01/25/20 12:23 98.3 F 70 18 176/108 100 01/25/20 11:49 70 18 176/108 100 Intake and Output 01/25/20 01/25/20 01/25/20 06:59 14:59 22:59 Other: Weight 81.6 kg 81.6 kg PHYSICAL EXAMINATION: Patient is lying in the bed comfortably, no acute distress, awake alert but not communicative.. HEENT: Normocephalic. Neck is supple. Pupils reactive. Nostrils clear. Oral cavity is moist. Ears reveal no drainage. Neck reveals no JVD, carotid bruits, or thyromegaly. CHEST EXAMINATION: Trachea is central. Symmetrical expansion. bibasilar diminishes sounds. Lung sanders clear to auscultation and percussion. CARDIAC: Normal S1, S2 with no gallops. No murmurs ABDOMEN: Soft. Bowel sounds normal. No organomegaly. No abdominal bruits. Extremities: reveal no edema. No clubbing or cyanosis Neurologically awake, alert, oriented x1 with well-coordinated movements. No focal deficits noted Skin: No rash or skin lesions. Psychiatric: Coperative. Could not be assessed completely. Musculoskeletal: No joint swelling or deformity. Results CBC & Chem 7: 01/25/20 12:00 01/25/20 12:00 Labs: Abnormal Lab Results - Last 24 Hours (Table) 01/25/20 01/25/20 01/25/20 Range/Units 11:42 12:00 12:00 APTT 21.7 L (22.0-30.0) sec BUN 29 H (7-17) mg/dL Glucose 106 H (74-99) mg/dL POC Glucose (mg/dL) 101 H (75-99) mg/dL Urine Appearance (Clear) Ur Specific [place] (1.001-1.035) Urine Protein (Negative) Urine Glucose (UA) (Negative) Urine Ketones (Negative) Urine Blood (Negative) Ur Leukocyte Esterase (Negative) Urine RBC (0-5) /hpf Urine WBC (0-5) /hpf Urine Bacteria (None) /hpf Urine Mucus (None) /hpf 01/25/20 Range/Units 14:26 APTT (22.0-30.0) sec BUN (7-17) mg/dL Glucose (74-99) mg/dL POC Glucose (mg/dL) (75-99) mg/dL Urine Appearance Cloudy H (Clear) Ur Specific [place] 1.050 H (1.001-1.035) Urine Protein Trace H (Negative) Urine Glucose (UA) 4+ H (Negative) Urine Ketones 1+ H (Negative) Urine Blood Trace H (Negative) Ur Leukocyte Esterase Large H (Negative) Urine RBC 17 H (0-5) /hpf Urine WBC >182 H (0-5) /hpf Urine Bacteria Moderate H (None) /hpf Urine Mucus Rare H (None) /hpf Thrombosis Risk Factor Assmnt - DVT/VTE Prophylaxis DVT/VTE Prophylaxis: Pharmacologic Prophylaxis ordered - Choose All That Apply Any of the Below Risk Factors Present?: Yes Each Factor Represents 1 point: Medical pt on bed rest, Obesity (BMI >25) Each Risk Factor Represents 2 Points: Age 61-74 years, Patient confined to bed Each Risk Factor Represents 5 Points: Stroke (< 1 month) Thrombosis Risk Factor Assessment Total Risk Factor Score: 11 Thrombosis Risk Factor Assessment Level: High Risk Assessment and Plan Assessment: Acute urinary tract infection Altered mental status likely due to metabolic encephalopathy. Ruled out acute CVA. History of multiple TIAs History of urinary tract infections with E. coli Diabetes type 2 non insulin Hypertension Uncontrolled Hyperlipidemia History of seizure disorder History of breast cancer History of meningioma on the left side of the brain status post gamma knife procedure Previous history of smoking Anxiety/bipolar depression with hx of psychosis DVT prophylaxis with heparin subcu Plan: Patient will be continued on antibiotics in the form of ceftriaxone. Follow-up urine culture reports. CT head and CT angiogram is essentially negative studies. Patient was not a candidate for TPA. Continue with blood pressure medications and home medications including antiepileptics. Neurology was consulted. Patient's mental status is improving currently. Further recommendations based on the clinical course. Prognosis guarded with multiple medical problems and comorbid conditions. Time with Patient: Greater than 30
[2020-01-26 06:28] LABS: Glucose,Whole Blood 93 mg/dL (75-99)
[2020-01-26] MEDS: INSULIN ASPART (NovoLOG) 100 UNIT/ML VIAL SQ SCH ×4 (06:28→21:43)
[2020-01-26] MEDS: CARVEDILOL 12.5 MG TAB PO SCH ×2 (06:33→17:12)
[2020-01-26] MEDS: SODIUM CHLORIDE 0.9% 1,000 ML IV SCH ×2 (06:33→21:50)
[2020-01-26 06:41] LABS: Cholesterol 139 mg/dL (<200); HDL Cholesterol 64 mg/dL (40-60); LDL Cholesterol,Calculated 54 mg/dL (0-99); Triglycerides 107 mg/dL (<150)
[2020-01-26] MEDS: HEPARIN SODIUM,PORCINE 5,000 UNIT/ML 1 ML VIAL SQ SCH ×3 (08:10→23:59)
[2020-01-26] MEDS: PANTOPRAZOLE 40 MG TABLET PO SCH (08:10)
[2020-01-26] MEDS: ANASTROZOLE 1 MG TAB PO SCH (08:10)
[2020-01-26] MEDS: levETIRAcetam 500 MG TAB PO SCH ×2 (08:10→21:49)
[2020-01-26] MEDS: DIVALPROEX 250 MG TABLET.DR PO SCH (08:10)
[2020-01-26] MEDS: THIAMINE 100 MG TAB PO SCH (08:10)
[2020-01-26 11:41] LABS: Glucose,Whole Blood 180 mg/dL (75-99)
[2020-01-26] MEDS: ASPIRIN 325 MG TAB PO SCH (11:51)
[2020-01-26] MEDS: FOLIC ACID 1 MG TAB PO SCH (11:52)
[2020-01-26 14:54] LABS: Hemoglobin A1C 5.9 % (4.0-6.0)
--- NOTE | 2020-01-26 15:36 | P.CNNES ---
History of Present Illness Consult date: 01/26/20 Requesting physician: Mykel Tim Reason for Consult: Decreased responsiveness History of Present Illness: Patient is a 74-year-old female, well-known to me from previous admissions to the hospital. Patient has history of previous CVA, intracranial bleed, meningioma, status post gamma knife and seizure disorder. Patient has significant expressive aphasia, advanced dementia, therefore history not able to be obtained from the patient. As per EMS flow sheet, patient's has reported that he was assisting the patient in the bathroom, tried to get her to transfer to shower chair when she began not following commands and answering her inappropriately. Patient does have history of TIA. Patient is not on any blood thinners. No history of trauma. Patient's has mentioned that she has periodic confusion but is normally able to hold a conversation with others, would know where she is and who he is. Patient normally follows commands. Patient estimates a normal orientation to be between alert and oriented 2-3/4 EMS noted the patient has no facial droop, inconclusive right arm strength. Patient had inappropriate speech and not following commands appropriately. No slurred speech. Patient's blood glucose was normal 112, patient's blood pressure was 194/98, pulse rate 77 respiration 18. Patient underwent testing as below. ED staff spoke to stroke neurologist Dr. Mondragon, and initially TPA was considered but when he spoke to the patient, she was much improved and it was decided not to give the TPA. CT head showed periventricular white matter ischemic type change with age- related atrophy. Suspected calcification adjacent to some focal subcortical chronic-appearing white matter change. This may be old subcortical infarct less apparent than comparison. CTA of head and neck showed mild atherosclerotic change of the carotid bifurcation. No sizable aneurysm or evidence of intracranial vascular occlusion. Vertebrobasilar system intact. Calcified left thyroid nodule, questionable left parotid nodule which could be followed up with short-term ultrasound. EKG shows normal sinus rhythm. Chest x-ray with right basilar atelectasis favored over pneumonia. Patient had an MRI of the brain to 08/04/2020, which revealed no acute process. Patient's 2-D echo from 10/25/2019 showed sinus rhythm, left-ventricular size is normal. EF is 60-65%. Normal left atrial size. Patient's hemoglobin A1c 5.9 on 02/12/2020, B12 941, TFTs normal. Total cholesterol 139, LDL 54, HDL 64. 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 History of Any Multi-Drug Resistant Organisms: CRE, MRSA Date of last positivie culture/infection: 08/13/18 MRSA & MDRO CRE MDRO Source:: Urine-MRSA and MDRO CRE Past Surgical History: Hysterectomy Additional Past Surgical History / Comment(s): Total hysterectomy, right hip arthroplasty, laser surgery of the right eye of her bleeding, bladder suspension, right elbow metal plate , gamma knife procedure for meningoma lt si de of brain 03-11-17 Past Anesthesia/Blood Transfusion Reactions: No Reported Reaction Past Psychological History: Anxiety, Bipolar, Depression Additional Psychological History / Comment(s): 03/19/2016- treated for psychosis, bipolar depression, paranoid symptoms and hearing voices. pt lives with her spouse in ranch style home that has 2 steps to enter. has a pet cat. no outside services recieved-daughter heips out when needed. no medical equipment except for cane. Smoking Status: Former smoker Past Alcohol Use History: None Reported Additional Past Alcohol Use History / Comment(s): Patient was a smoker for approx 6 years and quit in 1979. She denies any medical marijuana, marijuana, street drug or alcohol use. She uses a cane for ambulation since the intracranial bleed in July 2015. Past Drug Use History: None Reported - Past Family History Father Family Medical History: No Reported History Additional Family Medical History / Comment(s): Father is alive in his 80s and is a smoker. Patient does not know his medical history. Mother Family Medical History: No Reported History Additional Family Medical History / Comment(s): Mother at age 79 from Alzheimer's dementia. Sister(s) Family Medical History: Congestive Heart Failure (CHF) Additional Family Medical History / Comment(s): She has one sister that is from heart failure. Patient does not have any brothers. Patient has 2 daughters that are 45 and 42 years of age with no major medical problems. Medications and Allergies Home Medications Medication Instructions Recorded Confirmed Type Anastrozole [Arimidex] 1 mg PO DAILY 12/22/16 01/25/20 History Melatonin 3 mg PO HS 10/13/17 01/25/20 History Cholecalciferol [Vitamin D3 (25 1,000 unit PO DAILY@1200 06/05/18 01/25/20 History Mcg = 1000 Iu)] Cyanocobalamin (Vitamin B-12) 1,000 mcg PO DAILY 06/05/18 01/25/20 History [Vitamin B-12] Multivitamins, Thera [Multivitamin 1 tab PO DAILY 06/05/18 01/25/20 History (formulary)] busPIRone HCl [Buspar] 10 mg PO HS 06/05/18 01/25/20 History metFORMIN HCL [Glucophage] 500 mg PO BID 06/06/18 01/25/20 History busPIRone HCl [Buspar] 5 mg PO DAILY 08/13/18 01/25/20 History Atorvastatin Calcium [Lipitor] 10 mg PO HS 09/05/18 01/25/20 History Carvedilol 25 mg PO BID 12/26/18 01/25/20 History Co-Q10 10 mg PO DAILY 07/09/19 01/25/20 History Aspirin EC [Ecotrin Low Dose] 81 mg PO DAILY 10/28/19 01/25/20 History Empagliflozin [Jardiance] 10 mg PO DAILY 10/28/19 01/25/20 History Folic Acid 1 mg PO DAILY@1200 30 Days #30 tab 11/01/19 01/25/20 Rx Cranberry 4200mg 2 tab PO DAILY 01/25/20 01/25/20 History Divalproex [Depakote] 250 mg PO DAILY 01/25/20 01/25/20 History Divalproex [Depakote] 500 mg PO HS 01/25/20 01/25/20 History Omeprazole 20 mg PO DAILY 01/25/20 01/25/20 History Thiamine [Vitamin B-1] 100 mg PO DAILY 01/25/20 01/25/20 History Cefuroxime [Ceftin] 250 mg PO BID 3 Days #6 tab 01/27/20 Rx Lacosamide [Vimpat] 100 mg PO BID #1 tablet 01/27/20 Rx levETIRAcetam [Keppra] 1,000 mg PO BID #0 01/27/20 01/25/20 Rx risperiDONE [RisperDAL] 1 mg PO HS #3 tab 01/27/20 Rx Allergies Allergy/AdvReac Type Severity Reaction Status Date / Time Sulfa (Sulfonamide Allergy Unknown Unknown Verified 01/25/20 20:08 Antibiotics) ciprofloxacin [From Cipro] Allergy Unknown Verified 01/25/20 20:08 solifenacin [From Vesicare] AdvReac Confusion/s Verified 01/25/20 20:08 haking Physical Examination - Vital Signs Vital Signs: Vital Signs Temp Pulse Pulse Resp BP BP Pulse Ox 01/26/20 12:00 99 F 64 16 125/74 97 01/26/20 08:00 98.2 F 73 16 135/66 99 01/26/20 04:00 97.8 F 73 16 127/70 98 01/26/20 00:00 98.1 F 72 16 125/58 99 01/25/20 21:06 69 16 01/25/20 21:05 97.9 F 69 16 153/80 98 01/25/20 17:57 73 18 138/77 100 01/25/20 17:44 73 18 138/77 100 01/25/20 16:00 71 18 100 01/25/20 15:00 71 18 161/77 100 01/25/20 14:00 71 18 152/74 100 01/25/20 13:26 70 18 146/63 100 Intake and Output 01/25/20 01/26/20 01/26/20 22:59 06:59 14:59 Intake Total 100 236 Balance 100 236 Intake: Oral 100 236 Other: Voiding Method Diaper Diaper Diaper # Voids 2 2 Weight 81.6 kg 66.5 kg On examination patient is an elderly female, laying comfortably in the bed. Patient appears to have severe expressive aphasia, perseverates on "I want to close it up". Then she started perseverating on "thank you very much", which had significant paraphasic errors. Patient cannot name or repeat. Could not tell me her name, age or date of . On cranial nerve examination pupils are round and reacting. Visual sanders could not be tested. Face is symmetric and tongue protrudes the midline. Palatal elevation and sensation normal. Hearing appears normal although cannot be tested reliably. 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 Strength in the lower extremities appears normal. Reflexes are 1+ and plantars downgoing. Sensory and cerebellar functions could not be tested. Gait could not be tested. Results - Laboratory Findings CBC and BMP: 01/25/20 12:00 01/25/20 12:00 Abnormal Lab Findings: Abnormal Labs 01/25/20 01/25/20 01/25/20 11:42 12:00 12:00 APTT 21.7 L BUN 29 H Glucose 106 H POC Glucose (mg/dL) 101 H HDL Cholesterol Urine Appearance Ur Specific Dunbar Urine Protein Urine Glucose (UA) Urine Ketones Urine Blood Ur Leukocyte Esterase Urine RBC Urine WBC Urine Bacteria Urine Mucus 01/25/20 01/26/20 01/26/20 14:26 05:11 11:41 APTT BUN Glucose POC Glucose (mg/dL) 180 H HDL Cholesterol 64 H Urine Appearance Cloudy H Ur Specific Dunbar 1.050 H Urine Protein Trace H Urine Glucose (UA) 4+ H Urine Ketones 1+ H Urine Blood Trace H Ur Leukocyte Esterase Large H Urine RBC 17 H Urine WBC >182 H Urine Bacteria Moderate H Urine Mucus Rare H Assessment and Plan Assessment: * 74-year-old female with history of seizure disorder, previous intracranial hemorrhage, came with acute altered mental status. Differential diagnosis is between possible complex partial seizure versus TIA. * History of cerebral meningioma, status post gamma knife * History of left parietal CVA/intracranial hemorrhage in 2015 * History of seizure disorder * Vascular dementia Plan: * Suspect patient had a complex partial seizure. Patient still appears to be in post ictal state. EEG revealed continuous focal slowing and some sharply contoured waves over the left frontal temporal region, suggestive of focal cortical neuronal dysfunction with underlying cortical irritability and tendency for seizures. * We will check Depakote level, Keppra level. * Continue aspirin 325 mg daily and Lipitor 10 mg. * Tried to contact patient's and daughter, and both were not available. We will try to contact them again in the morning. * We will follow.
[2020-01-26 16:46] LABS: Glucose,Whole Blood 112 mg/dL (75-99)
--- NOTE | 2020-01-26 19:42 | EEG ---
ELECTROENCEPHALOGRAM REPORT DATE OF SERVICE: 01/26/2020. PREAMBLE: This is a 74-year-old female with episodic altered mental status. This study is performed to evaluate for any epileptiform activity. EEG FINDINGS: This is a 21-channel portable EEG recording in a patient utilizing 10-20 international system with bipolar and referential montages. The background consists of well- developed, poorly regulated, mixed frequency of 4 to 6 Hz theta mixed with high frequency myogenic activity seen in bihemispheric region. There is continuous focal slowing and sharp-appearing waves involving the left frontotemporal region. No electrographic seizure was recorded. The background does not seem to be reactive to eye opening or closing. Photic driving response was not seen. No electrographic seizure was recorded. IMPRESSION: This is an abnormal EEG due to: 1. Continuous focal dysrhythmic slowing in the left frontotemporal region, with sharply contoured waves, suggestive of focal cortical neural dysfunction with underlying cortical irritability and tendency for seizures. 2. Background slowing, generalized, suggestive of generalized cerebral dysfunction, as can be seen with toxic metabolic encephalopathy or due to diffuse structural brain abnormality. MMODL / IJN: [id number] / SRIDEVI
[2020-01-26 20:48] LABS: Glucose,Whole Blood 131 mg/dL (75-99)
[2020-01-26] MEDS ORDERED: ATORVASTATIN 10 MG TAB PO SCH (21:00)
[2020-01-26] MEDS: DIVALPROEX 500 MG TABLET.DR PO SCH (21:49)
--- NOTE | 2020-01-26 23:44 | P.PN ---
Subjective Progress Note Date: 01/26/20 Principal diagnosis: Altered mental status possible metabolic encephalopathy Patient is a 74-year-old female with a known history of hypertension, hyperlipidemia, seizure disorder, diabetes type 2, history of CVA/TIA, history of left side meningioma status post gamma knife procedure, history of breast cancer, history of intracranial bleeding 2014, hyperactive bladder/urinary incontinence and history of multiple UTIs in the past was brought to the hospital by EMS due to altered mental status and decreased responsiveness. Today morning patient could not finish sentences and very lethargic. According to patient's she was normal this morning and then after about half an hour prior to arrival he went to talk to her and assist her and she was not able to follow simple commands and was not able to respond to him. She normally is alert and oriented x3. Patient does have history of multiple TIAs. No recent history of fever or chills. No cough or sputum production. No nausea vomiting or diarrhea. History was taken from her at bedside. And also from EMS and medical records. CT head and CT angiogram of the head and neck showed no acute process. Chest x-ray showed right basilar atelectasis favored over pneumonia correlate clinically. No leukocytosis. EKG showed sinus rhythm. Urinalysis showed cloudy 1+ ketones 4+ glucose, nitrite negative, large leukocyte esterase, RBC 17 and WBC greater than 182 with squamous epithelial cells less than 1. 01/26/2020 Patient is awake alert and oriented x1. Able to move her extremities while in bed. Patient is still lethargic otherwise. Patient was seen by neurology. EEG showed continuous focal dysthymic slowing in the frontal temporal region. Suggestive of cortical neuronal dysfunction. Background slowing and generalized cerebral dysfunction can be seen in toxic metabolic encephalopathy. I have diffuse structural brain abnormality. Patient is otherwise tolerating oral diet slowly. Urine culture showed gram-negative bacilli. Currently being continued on antibiotics in the form of ceftriaxone. PT OT will be consulted. Patient may need rehab transfer. Active Medications Anastrozole (Arimidex) 1 mg PO DAILY [facility] Last Admin: 01/26/20 08:10 Dose: 1 mg Documented by: Aspirin (Aspirin) 325 mg PO DAILY [facility] Last Admin: 01/26/20 11:51 Dose: 325 mg Documented by: Atorvastatin Calcium (Lipitor) 10 mg PO HS [facility] Last Admin: 01/26/20 21:48 Dose: Not Given Documented by: Carvedilol (Coreg) 25 mg PO BID-W/MEALS [facility] Last Admin: 01/26/20 17:12 Dose: 25 mg Documented by: Divalproex Sodium (Depakote) 250 mg PO DAILY [facility] Last Admin: 01/26/20 08:10 Dose: 250 mg Documented by: Divalproex Sodium (Depakote) 500 mg PO HS [facility] Last Admin: 01/26/20 21:49 Dose: Not Given Documented by: Folic Acid (Folic Acid) 1 mg PO DAILY@1200 [facility] Last Admin: 01/26/20 11:52 Dose: 1 mg Documented by: Heparin Sodium (Porcine) (Heparin) 5,000 unit SQ Q8HR [facility] Last Admin: 01/26/20 15:46 Dose: 5,000 unit Documented by: Alteplase, Recombinant 7 mg/ (IV Solution) 7 mls @ 420 mls/hr IV ONCE STA Stop: 01/25/20 12:25 Last Admin: 01/25/20 13:05 Dose: Not Given Documented by: Ceftriaxone Sodium 1 gm/ (Sodium Chloride) 50 mls @ 100 mls/hr IVPB DAILY [facility] Last Admin: 01/26/20 08:10 Dose: 100 mls/hr Documented by: Sodium Chloride (Saline 0.9%) 1,000 mls @ 50 mls/hr IV .Q20H [facility] Last Admin: 01/26/20 21:50 Dose: 50 mls/hr Documented by: Insulin Aspart (Novolog) 0 unit SQ ACHS [facility]; Protocol Last Admin: 01/26/20 21:43 Dose: 1 unit Documented by: Levetiracetam (Keppra) 500 mg PO BID [facility] Last Admin: 01/26/20 21:49 Dose: Not Given Documented by: Miscellaneous Information (Alteplase Per Pharmacy Stroke) 1 each MISCELLANE DIRECTED PRN PRN Reason: Stroke Pantoprazole Sodium (Protonix) 40 mg PO DAILY [facility] Last Admin: 01/26/20 08:10 Dose: 40 mg Documented by: Thiamine HCl (Vitamin B-1) 100 mg PO DAILY [facility] Last Admin: 01/26/20 08:10 Dose: 100 mg Documented by: Objective - Vital Signs Vital signs: Vital Signs Temp 96 F L 01/26/20 15:48 Pulse 72 05/13/20 15:48 Resp 16 01/26/20 15:48 BP 128/73 01/26/20 15:48 Pulse Ox 96 01/26/20 15:48 Intake & Output 01/26/20 01/26/20 01/27/20 06:59 18:59 06:59 Intake Total 100 672 Balance 100 672 Weight 66.5 kg Intake: Oral 100 672 Other: Voiding Method Diaper Diaper # Voids 2 4 - Exam PHYSICAL EXAMINATION: Patient is lying in the bed comfortably, no acute distress, awake alert but not communicative.. HEENT: Normocephalic. Neck is supple. Pupils reactive. Nostrils clear. Oral cavity is moist. Ears reveal no drainage. Neck reveals no JVD, carotid bruits, or thyromegaly. CHEST EXAMINATION: Trachea is central. Symmetrical expansion. bibasilar diminishes sounds. Lung sanders clear to auscultation and percussion. CARDIAC: Normal S1, S2 with no gallops. No murmurs ABDOMEN: Soft. Bowel sounds normal. No organomegaly. No abdominal bruits. Extremities: reveal no edema. No clubbing or cyanosis Neurologically awake, alert, oriented x1 with well-coordinated movements. No focal deficits noted Skin: No rash or skin lesions. Psychiatric: Coperative. Could not be assessed completely. Musculoskeletal: No joint swelling or deformity. - Labs CBC & Chem 7: 01/25/20 12:00 01/25/20 12:00 Labs: Abnormal Lab Results - Last 24 Hours (Table) 01/26/20 01/26/20 01/26/20 Range/Units 05:11 11:41 16:44 POC Glucose (mg/dL) 180 H 112 H (75-99) mg/dL HDL Cholesterol 64 H (40-60) mg/dL 01/26/20 Range/Units 20:46 POC Glucose (mg/dL) 131 H (75-99) mg/dL HDL Cholesterol (40-60) mg/dL Microbiology - Last 24 Hours (Table) 01/25/20 14:26 Urine Culture - Preliminary Urine,Voided Gram Neg Bacilli Assessment and Plan Assessment: Acute urinary tract infection with gm-ve bacilli Altered mental status likely due to metabolic encephalopathy. Ruled out acute CVA. History of multiple TIAs History of urinary tract infections with E. coli Diabetes type 2 non insulin Hypertension Uncontrolled Hyperlipidemia History of seizure disorder History of breast cancer History of meningioma on the left side of the brain status post gamma knife procedure Previous history of smoking Anxiety/bipolar depression with hx of psychosis DVT prophylaxis with heparin subcu Plan: Patient will be continued on antibiotics in the form of ceftriaxone. Follow-up urine culture reports. CT head and CT angiogram is essentially negative studies. Patient was not a candidate for TPA. Continue with blood pressure medications and home medications including antiepileptics. Neurology Is following.. Patient's mental status is improving currently. Further recommendations based on the clinical course. Prognosis guarded with multiple medical problems and comorbid conditions. Time with Patient: Greater than 30
[2020-01-27 04:55] VITALS: RESP 16
[2020-01-27 06:22] LABS: Glucose,Whole Blood 109 mg/dL (75-99)
[2020-01-27] MEDS: INSULIN ASPART (NovoLOG) 100 UNIT/ML VIAL SQ SCH ×3 (06:26→18:04)
[2020-01-27] MEDS: CARVEDILOL 12.5 MG TAB PO SCH ×2 (06:30→18:04)
[2020-01-27] MEDS: DIVALPROEX 250 MG TABLET.DR PO SCH (09:37)
[2020-01-27] MEDS: ASPIRIN 325 MG TAB PO SCH (09:37)
[2020-01-27] MEDS: levETIRAcetam 500 MG TAB PO SCH (09:37)
[2020-01-27] MEDS: ANASTROZOLE 1 MG TAB PO SCH (09:37)
[2020-01-27] MEDS: FOLIC ACID 1 MG TAB PO SCH (09:37)
[2020-01-27] MEDS: HEPARIN SODIUM,PORCINE 5,000 UNIT/ML 1 ML VIAL SQ SCH ×2 (09:37→18:03)
[2020-01-27] MEDS: THIAMINE 100 MG TAB PO SCH (09:37)
[2020-01-27] MEDS: PANTOPRAZOLE 40 MG TABLET PO SCH (09:37)
[2020-01-27 11:18] VITALS: TEMP 97.8
[2020-01-27 11:39] LABS: Glucose,Whole Blood 185 mg/dL (75-99)
--- NOTE | 2020-01-27 14:58 | P.DS ---
Providers Date of admission: 01/25/20 15:06 Expected date of discharge: 01/27/20 Attending physician: Bennett Esteves Consults: 01/25/20 15:07 Consult Physician Routine Consulting Provider: Eulalia Dawn Consult Reason/Comments: Decreased responsiveness Do you want consulting provider notified?: Yes Primary care physician: [facility] Course: History of presenting complaint: This is a 74-year-old patient of Dr. Hunt. Chronic stable medical conditions include essential hypertension, meningioma treated with, knife, seizure, diabetes mellitus type 2, hyperlipidemia, GERD, history of intracranial bleed in July 2015, overactive bladder, moderate to severe cognitive impairment multifactorial. patient presented when the noted that patient was less responsive with follow some simple commands but not really responding otherwise.computed tomography scan of the brain and CT angiogram of the brain showed chronic changes.EKG was suggestive of possible seizure activity in the left frontotemporal region. Also there is evidence of generalized cerebral dysfunction. Today-patient is sitting up in a chair. Very pleasant. Did tolerate some diet. I discussed with Dr. Stewart from neurology. dose of Keppra increased to thousand milligrams twice a day, Vimpat is being added. Does of Depakote remain the same.discussed with the nurse and also discussed with the discharge liaison from the [facility]. Patient Will be going to the rehab. Patient to follow-up with the neurologist. Discussion and discharge planning more than 35 minutes Consultation: Dr. Stewart from neurology Physical examination: VITAL SIGNS:medicine 97.8 71, 16, 132/89, 98% on room air GENERAL: sitting up in a chair, awake, talking EYES: Pupils equal. Conjunctiva normal. HEENT: External appearance of nose and ears normal, oral cavity grossly normal. NECK: JVD not raised; masses not palpable. HEART: First and second heart sounds are normal; no edema. LUNGS: Respiratory rate normal; clear to auscultation. ABDOMEN: Soft, nontender, liver spleen not palpable, no masses palpable. PSYCH: [patient answering questions.. INVESTIGATIONS, reviewed in the clinical context: computed tomography scan of the brain-chronic changes including periventricular white matter ischemic changes age related CT angiogram the brain-calcified left thyroid nodule EEG-findings suggestive of seizure activity in the left frontotemporal lobe.and cerebral slowing Assessment: -possible breakthrough seizure/epilepsy, POA -Essential hypertension -Chronic seizure disorder -Diabetes mellitus type 2 -Hyperlipidemia -GERD -History of intracranial bleed in July 2015 -Overactive bladder - severe cognitive impairment -Bipolar disorder -1.3 mm meningioma. Disposition: [facility] Patient Condition at Discharge: Stable Plan - Discharge Summary Discharge Rx Participant: No New Discharge Prescriptions: New Cefuroxime [Ceftin] 250 mg PO BID 3 Days #6 tab Lacosamide [Vimpat] 100 mg PO BID #1 tablet Continue Anastrozole [Arimidex] 1 mg PO DAILY Melatonin 3 mg PO HS Multivitamins, Thera [Multivitamin (formulary)] 1 tab PO DAILY Cyanocobalamin (Vitamin B-12) [Vitamin B-12] 1,000 mcg PO DAILY Cholecalciferol [Vitamin D3 (25 Mcg = 1000 Iu)] 1,000 unit PO DAILY@1200 busPIRone HCl [Buspar] 10 mg PO HS metFORMIN HCL [Glucophage] 500 mg PO BID busPIRone HCl [Buspar] 5 mg PO DAILY Atorvastatin Calcium [Lipitor] 10 mg PO HS Carvedilol 25 mg PO BID Co-Q10 10 mg PO DAILY Aspirin EC [Ecotrin Low Dose] 81 mg PO DAILY Empagliflozin [Jardiance] 10 mg PO DAILY Folic Acid 1 mg PO DAILY@1200 30 Days #30 tab Divalproex [Depakote] 250 mg PO DAILY Divalproex [Depakote] 500 mg PO HS Cranberry 4200mg 2 tab PO DAILY Omeprazole 20 mg PO DAILY Thiamine [Vitamin B-1] 100 mg PO DAILY risperiDONE [RisperDAL] 1 mg PO HS #3 tab Changed levETIRAcetam [Keppra] 1,000 mg PO BID #0 Discharge Medication List Anastrozole [Arimidex] 1 mg PO DAILY 12/22/16 [History] Melatonin 3 mg PO HS 10/13/17 [History] Cholecalciferol [Vitamin D3 (25 Mcg = 1000 Iu)] 1,000 unit PO DAILY@1200 06/05/18 [History] Cyanocobalamin (Vitamin B-12) [Vitamin B-12] 1,000 mcg PO DAILY 06/05/18 [History] Multivitamins, Thera [Multivitamin (formulary)] 1 tab PO DAILY 06/05/18 [History] busPIRone HCl [Buspar] 10 mg PO HS 06/05/18 [History] metFORMIN HCL [Glucophage] 500 mg PO BID 06/06/18 [History] busPIRone HCl [Buspar] 5 mg PO DAILY 08/13/18 [History] Atorvastatin Calcium [Lipitor] 10 mg PO HS 09/05/18 [History] Carvedilol 25 mg PO BID 12/26/18 [History] Co-Q10 10 mg PO DAILY 07/09/19 [History] Aspirin EC [Ecotrin Low Dose] 81 mg PO DAILY 10/28/19 [History] Empagliflozin [Jardiance] 10 mg PO DAILY 10/28/19 [History] Folic Acid 1 mg PO DAILY@1200 30 Days #30 tab 11/01/19 [Rx] Cranberry 4200mg 2 tab PO DAILY 01/25/20 [History] Divalproex [Depakote] 250 mg PO DAILY 01/25/20 [History] Divalproex [Depakote] 500 mg PO HS 01/25/20 [History] Omeprazole 20 mg PO DAILY 01/25/20 [History] Thiamine [Vitamin B-1] 100 mg PO DAILY 01/25/20 [History] Cefuroxime [Ceftin] 250 mg PO BID 3 Days #6 tab 01/27/20 [Rx] Lacosamide [Vimpat] 100 mg PO BID #1 tablet 01/27/20 [Rx] levETIRAcetam [Keppra] 1,000 mg PO BID #0 01/27/20 [Rx] risperiDONE [RisperDAL] 1 mg PO HS #3 tab 01/27/20 [Rx] Follow up Appointment(s)/Referral(s): Mani Hunt DO [Primary Care Provider] - 1-2 days [facility] [NON-STAFF] - 1-2 Days neurology,dr [Other] - 10 Days
[2020-01-27 15:44] VITALS: BP 120/66; PULSE 60
[2020-01-27] MEDS: SODIUM CHLORIDE 0.9% 1,000 ML IV SCH (18:04)
--- NOTE | 2020-01-27 20:08 | P.PN ---
Subjective Progress Note Date: 01/27/20 Patient was seen earlier before discharge. Patient has much improved. Patient able to speak sentences, able to answer questions, but as I continued to examine, she started perseverating. Denies headache. No seizures observed. Objective - Vital Signs Vital signs: Vital Signs Temp 97.8 F 01/27/20 08:00 Pulse 60 01/27/20 12:00 Resp 16 01/27/20 04:00 BP 120/66 01/27/20 12:00 Pulse Ox 99 01/27/20 12:00 Intake & Output 01/27/20 01/27/20 01/28/20 06:59 18:59 06:59 Intake Total 715 Balance 715 Weight 59 kg Intake: Oral 715 Other: Voiding Method Diaper Diaper # Voids 4 - Exam Patient is much alert and awake. Patient's speech and language functions are normal. Patient able to answer appropriately and asking questions, but as she continued to speak, started perseverating. Patient able to walk fairly well. - Labs CBC & Chem 7: 01/25/20 12:00 01/25/20 12:00 Labs: Abnormal Lab Results - Last 24 Hours (Table) 01/26/20 01/27/20 01/27/20 Range/Units 20:46 06:20 11:38 POC Glucose (mg/dL) 131 H 109 H 185 H (75-99) mg/dL Microbiology - Last 24 Hours (Table) 01/25/20 14:26 Urine Culture - Final Urine,Voided Klebsiella pneumoniae Assessment and Plan Assessment: * Medically intractable epilepsy. Patient has localization related symptomatically epilepsy with complex partial seizures. * History of cerebral meningioma, status post gamma knife * History of left parietal CVA/intracranial hemorrhage in 2015 * History of seizure disorder * Vascular dementia Plan: * Patient has medically intractable epilepsy. Patient probably has recurrent complex partial seizures with prolonged postictal state with expressive aphasia. I had a very prolonged discussion with patient's daughter and then with patient's separately on the phone. * Patient's daughter states that patient started having these episodic mental confusion since her intracranial hemorrhage in 2014. As a baseline she can talk well, walks well, although sometimes is slightly confused related to her mild dementia. Sometimes she would get stuck up on certain words, sentences and thoughts. She does get confused a lot of times. She has been having these episodes of profound mental confusion, every 2-3 months. With these spells, she cannot talk at all for short period of time and then slowly comes out of it. Patient does have some clonic activity involving right upper extremity with these seizures. * Patient has been on numerous seizure medications as per chart. Patient has been on Keppra, Vimpat, Dilantin, Depakote, Lamictal. Patient's or patient's daughter does not know why these medications were stopped, and for what reason. * At present patient is on very subtherapeutic dose of Keppra 500 mg twice a day. Her Keppra level is 9.6 (3-60), and Depakote level is therapeutic 71.3. * Patient will be continued on same dose of Depakote 250 mg in the morning, 500 mg at night. Ammonia is normal 21. * We will increase Keppra to 1000 mg twice a day. * We will resume Vimpat 100 mg twice a day. * Continue aspirin 325 mg daily and Lipitor 10 mg. * Neurologically clear for discharge. Recommended patient to follow up with her neurologist within 1-2 weeks. Time with Patient: Greater than 30 (Coordinating care, counseling with patient's and daughter.)
== END 2020-01-27 18:16 | DRG 100 ==
LOC: EC 11:34 → 3SCARD 15:06
PROVIDERS: ADMIT Hospitalist; ATTEND Hospitalist
DX: G40.219 Localization-related (focal) (partial) symptomatic epilepsy and epileptic syndromes with complex partial seizures, intractable, without status epilepticus (principal); G93.41 Metabolic encephalopathy; N39.0 Urinary tract infection, site not specified; F01.50 Vascular dementia, unspecified severity, without behavioral disturbance, psychotic disturbance, mood disturbance, and anxiety; G93.89 Other specified disorders of brain; E04.1 Nontoxic single thyroid nodule; E11.9 Type 2 diabetes mellitus without complications; E78.5 Hyperlipidemia, unspecified; F32.9 Major depressive disorder, single episode, unspecified; Z11.59 Encounter for screening for other viral diseases; F41.9 Anxiety disorder, unspecified; I10 Essential (primary) hypertension; K21.9 Gastro-esophageal reflux disease without esophagitis; N32.81 Overactive bladder; D32.0 Benign neoplasm of cerebral meninges; R32 Unspecified urinary incontinence; Z79.811 Long term (current) use of aromatase inhibitors; Z79.82 Long term (current) use of aspirin; Z79.84 Long term (current) use of oral hypoglycemic drugs; Z79.899 Other long term (current) drug therapy; Z86.73 Personal history of transient ischemic attack (TIA), and cerebral infarction without residual deficits; Z87.440 Personal history of urinary (tract) infections; Z87.891 Personal history of nicotine dependence; Z90.710 Acquired absence of both cervix and uterus; Z96.641 Presence of right artificial hip joint; Z86.14 Personal history of Methicillin resistant Staphylococcus aureus infection; Z88.2 Allergy status to sulfonamides; Z88.8 Allergy status to other drugs, medicaments and biological substances; Z85.3 Personal history of malignant neoplasm of breast; Z82.0 Family history of epilepsy and other diseases of the nervous system; Z82.49 Family history of ischemic heart disease and other diseases of the circulatory system
CPT/HCPCS: 36415; 70450; 70496; 70498; 71046; 80053; 80061; 80164; 80177; 81001; 82140; 83036; 84443; 84484; 85025; 85610; 85730; 87077; 87086; 87186; 87635; 93005; 95816; 96365; 99291